=== PATIENT | male | born 1955 | race Asian ===

== ENCOUNTER 2017-11-09 12:14 | Day surgery (SDC) | END 2017-11-09 18:34 | disposition home or self-care (01) ==

== ENCOUNTER 2019-04-12 10:38 | Inpatient (IN) | payer MEDICARE, OTHER, MEDICAID ==
[~2019-04-12] VITALS: Ht 167.6 cm; Wt 90.1 kg
[2019-04-12] VITALS (18 sets, daily range): BP systolic 103–163; BP diastolic 74–141; PULSE 59–140; RESP 15–33; Ht 167.6 cm; Wt 90.1 kg
[~2019-04-12 10:38] MED LIST: AMIO200T4 PO; AMLO-147 PO; APIX5TAB PO; ASA400 PO; ASPI-817 PO; ATOR20TA38 PO; BUME1TAB PO; DIGO125T PO; HYDR12.58 PO; LOSA100T15 PO; LOSA25TA2 PO; METO-336 PO; PANT40TA4 PO; UDKCL40 PO
[2019-04-12] MEDS ORDERED: IPRATROPIUM (NEB) 0.5 MG/2.5 ML AMP INH STA (10:50)
[2019-04-12] MEDS ORDERED: ALBUTEROL 0.5% (NEB) 2.5 MG/0.5 ML AMP INH STA (10:50)
[2019-04-12] MEDS ORDERED: DILTIAZEM-D5W 125MG/125ML DRIP 125 ML IV STA (10:52)
[2019-04-12] MEDS ORDERED: DILTIAZEM 25 MG INJ IV STA (10:52)
[2019-04-12] MEDS ORDERED: CEFEPIME 2GM/50 ML (PMX) 50 ML IVPB STA (11:02)
--- NOTE | 2019-04-12 11:20 | ERD ---
ER Documentation Chief Complaint Chief Complaint SOB X 1 WEEKS, LEG SWELLING HPI This is a 63-year-old male with a past medical history of an inguinal hernia repair, hypertension, sleep apnea and high cholesterol who presents to the emergency department complaining of progressive shortness of breath for the past 12 days. He states this is progressively worsened. The shortness of breath is worse when he ambulates or stands up. He has been experiencing paroxysmal nocturnal dyspnea. He complains of bilateral swelling swelling of his lower extremities but denies any calf tenderness. No recent hospitalizations no recent travel or prolonged immobilization. He is also expressing palpitations but denies any chest pressure that radiates to the neck back or jaw. He said no fevers or shaking no chills. He denies any hemoptysis hematemesis or melanotic stools. He has no abdominal pain. ROS All systems reviewed and are negative except as per history of present illness. Medications Home Meds Reported Medications Aspirin* (Aspirin* EC) 81 Mg Tablet.dr, 81 MG PO DAILY, TAB 04/12/19 Atorvastatin Calcium* (Atorvastatin Calcium*) 20 Mg Tablet, 20 MG PO QHS, #30 TAB 04/12/19 Losartan Potassium* (Losartan Potassium*) 100 Mg Tablet, 100 MG PO DAILY, TAB 04/12/19 Amlodipine Besylate* (Amlodipine Besylate*) 10 Mg Tablet, 10 MG PO DAILY, #30 TAB 04/12/19 Discontinued Reported Medications Losartan Potassium* (Losartan Potassium*) 100 Mg Tablet, 100 MG PO DAILY, TAB 11/09/17 Amlodipine Besylate* (Amlodipine Besylate*) 10 Mg Tablet, 10 MG PO DAILY, #30 TAB 11/09/17 Hydrochlorothiazide* (Hydrochlorothiazide*) 12.5 Mg Tablet, 12.5 MG PO DAILY, # 30 TAB 11/09/17 Atorvastatin Calcium* (Atorvastatin Calcium*) 20 Mg Tablet, 20 MG PO QHS, #30 TAB 11/09/17 Allergies Allergies: Coded Allergies: No Known Allergy (Unverified , 04/12/19) PMhx/Soc History of Surgery: Yes (appendectomy,prostate, turp x2) Anesthesia Reaction: No Hx Neurological Disorder: No Hx Respiratory Disorders: No Hx Cardiac Disorders: No Hx Psychiatric Problems: No Hx Miscellaneous Medical Probl: Yes (high cholesterol) Hx Alcohol Use: No Hx Substance Use: No Hx Tobacco Use: No Physical Exam Vitals Vital Signs Date Temp Pulse Resp B/P (MAP) Pulse Ox O2 O2 Flow FiO2 Time Delivery Rate 04/12/19 107 23 105/87 100 BIPAP 12:35 (93) 04/12/19 118 98 50 12:27 04/12/19 98 28 130/84 97 Nasal 11:30 (99) Cannula 04/12/19 130 30 129/106 97 Nasal 11:20 (114) Cannula 04/12/19 118 24 96 Nasal 3.0 11:15 Cannula 04/12/19 Nasal 2 11:07 Cannula 04/12/19 Nasal 2.0 11:05 Cannula 04/12/19 98.0 82 24 121/87 92 10:41 (98) Physical Exam Constitutional:Well-developed. Well-nourished. Patient in severe respiratory distress HEENT:Normocephalic. Atraumatic.Pupils were equal round reactive to light. Moist mucous membranes.No tonsillar exudates. Neck: No nuchal rigidity. No lymphadenopathy. No posterior cervical spine tenderness or step-offs. Respiratory: Patient unable to speak more than 2 words at a time before becoming short of breath. Using accessory muscles of respiration. Rhonchi heard bilaterally. Cardiovascular: Tachycardic with irregular regular rhythm.No murmurs. No rubs were appreciated.S1, S2 normal. Distal pulses are palpable 2+ bilaterally. GI: Abdomen was soft. Nontender. Non Distended. No pulsatile abdominal masses or bruits. No rebound. No guarding. Bowel sounds were present and normal. Muscle skeletal: Full range of motion of both the upper and lower extremities bilaterally.Normal muscle tone.No assymetrical calf tenderness or swelling. 1+ pitting edema the bilateral lower extremities Skin: No petechia, no purpura. No lesions on the palms or the soles of the feet. No maculopapular rash. NEURO: Patient was alert, awake, orientated x3.No facial droop. Gait not observed as patient was in respiratory distress and therefore unable to ambulate. Speech had regular rate and rhythm. No focal neurological deficits. Result Diagram: 04/12/19 1055 04/12/19 1055 Results 24 hrs Laboratory Tests Test 04/12/19 10:47 04/12/19 10:55 04/12/19 11:01 Blood Gas Specimen Source Blood arterial Arterial Blood Date Drawn 04/12/2019 11:06:02 AM Arterial Blood pH 7.356 (Temp corrected) Arterial Blood pCO2 27.2 mmhg (Temp correct) Arterial Blood pO2 88.5 mmHG (Temp corrected) Arterial Blood HCO3 14.9 mmol/L Arterial Blood Base Excess -8.9 mmol/L Arterial Blood 95.6 mmHG Oxygen Saturation Can Test N/A Arterial Blood Gas Right Brachial Puncture Site Arterial 1.0 % Blood Carboxyhemoglobin Arterial Blood 0.3 % Methemoglobin Blood Gas A-a O2 316.6 mmHg Differential Oxyhemoglobin Percent 94.4 % Blood Gas Temperature 37.0 C Blood Gas Modality MASK - SIMPLE FiO2 61.0 % Blood Gas Notified Whom TM Blood Gas Notified Time 04/12/2019 11:14:45 AM White Blood Count 6.5 10^3/ul Red Blood Count 4.87 10^6/ul Hemoglobin 13.5 g/dl Hematocrit 43.8 % Mean Corpuscular Volume 89.9 fl Mean Corpuscular 27.7 pg Hemoglobin Mean Corpuscular 30.8 g/dl Hemoglobin Concent Red Cell Distribution 15.6 % Width Platelet Count 278 10^3/UL Mean Platelet Volume 9.0 fl Immature Granulocytes % 0.300 % Neutrophils % 80.2 % Lymphocytes % 10.6 % Monocytes % 8.6 % Eosinophils % 0.0 % Basophils % 0.3 % Nucleated Red Blood Cells 0.0 /100WBC % Immature Granulocytes # 0.020 10^3/ul Neutrophils # 5.2 10^3/ul Lymphocytes # 0.7 10^3/ul Monocytes # 0.6 10^3/ul Eosinophils # 0.0 10^3/ul Basophils # 0.0 10^3/ul Nucleated Red Blood Cells 0.0 10^3/ul # Prothrombin Time 16.5 Sec Prothrombin Time Ratio 1.3 INR International 1.32 Normalized Ratio Activated 36.5 Sec Partial Thromboplast Time D-Dimer 1554.61 ng/ml D-Dimer Comment Sodium Level 146 mmol/L Potassium Level 3.9 mmol/L Chloride Level 114 mmol/L Carbon Dioxide Level 17 mmol/L Anion Gap 15 Blood Urea Nitrogen 30 mg/dl Creatinine 1.87 mg/dl Est Glomerular Filtrat 37 mL/min Rate mL/min Glucose Level 204 mg/dl Calcium Level 8.6 mg/dl Total Bilirubin 1.7 mg/dl Direct Bilirubin 0.00 mg/dl Indirect Bilirubin 1.7 mg/dl Aspartate Amino 52 IU/L Transf (AST/SGOT) Alanine 59 IU/L Aminotransferase (ALT/SGPT ) Alkaline Phosphatase 67 IU/L Creatine Kinase 208 IU/L Creatine Kinase Index 1.7 Creatinine Kinase MB 3.54 ng/ml (Mass) Troponin I 0.144 ng/ml B-Type Natriuretic Peptide 8220 PG/ML Total Protein 7.4 g/dl Albumin 4.0 g/dl Globulin 3.40 g/dl Albumin/Globulin Ratio 1.17 POC Venous Lactate 3.8 mmol/L Current Medications Medications Dose Sig/Vance Start Time Status Last (Trade) Ordered Route PRN Stop Time Admin Dose Reason Admin Albuterol 10 mg ONCE STAT 04/12/19 DC 04/12/19 (Proventil INH 10:50 11:15 0.5% (Neb)) 04/12/19 10:51 Ipratropium 1 mg ONCE STAT 04/12/19 DC 04/12/19 [place] [facility] 10:50 11:15 (Atrovent 04/12/19 10:51 0.02% (Neb)) Diltiazem 10 mg ONCE STAT 04/12/19 DC 04/12/19 HCl IV 10:52 11:19 (Cardizem Iv) 04/12/19 10:53 Diltiazem 125 ml @ 5 ONCE STAT 04/12/19 HCl mls/hr IV 10:52 04/13/19 11:51 Cefepime HCl 50 ml @ ONCE STAT 04/12/19 DC 04/12/19 100 mls/hr IVPB 11:02 11:24 04/12/19 11:31 Vancomycin 250 ml @ ONCE ONCE 04/12/19 04/12/19 HCl 125 mls/hr IVPB 11:30 12:07 04/12/19 13:29 Lorazepam 0.5 mg ONCE ONCE 04/12/19 DC 04/12/19 (Ativan) IV 12:00 11:40 04/12/19 12:01 Aspirin 325 mg ONCE ONCE 04/12/19 DC 04/12/19 (Aspirin) PO 12:00 12:31 04/12/19 12:01 Procedures/MDM The patient presented to the emergency department with shortness of breath. My differential diagnosis included but was not limited to upper airway obstruction, CHF, pulmonary embolism, cardiac ischemia, pneumonia, pneumothorax, anemia, drug overdose, pulmonary edema, COPD or asthma. The patient was admitted placed on a alarm security or surveillance monitor continuous pulse oximetry and IV access was established by nursing staff. The patient started on continuous nebulizer treatments of albuterol and Atrovent and supplemental oxygen. 12 Lead EKG tracing ordered and reviewed by myself showed: Tachycardic with irregular regular rhythm and heart rate 116 bpm and no arrhythmia. WA interval not appreciated as P waves were not present and patient was in atrial fibrillation with RVR QRS duration normal. No ST segment elevation No ST segment depression. No changes consistent with acute ischemia. The patient has no underlying history of atrial fibrillation and had new onset A. fib with RVR. The patient was given 20 mg of Cardizem with improvement of his heart rate. The patient did meet Sirs criteria. Blood cultures and lactic acid was obtained. The patient's lactic acid was elevated. Therefore the patient was treated for sepsis. He was given antibiotics for sepsis of unclear etiology. However the patient did not receive a 30 cc/kg bolus of normal saline as the patient was in severe respiratory distress with new onset congestive heart failure and high risk for fluid overload. A chest radiograph ordered and reviewed by myself and the radiologist indicate the following: Cardiomegaly with calcified atherosclerosis in the aorta. Central pulmonary vascular congestion and interstitial prominence in both lungs. Retrocardiac opacity that may reflect left lower lobe atelectasis or infiltrate combined with small pleural effusion. Patchy right lower lung infiltrates and small right pleural effusion. Hyperexpanded lung The patient's respiratory distress did not improve with the nebulizer treatment and therefore was placed on noninvasive mechanical ventilation. The patient was very agitated did receive 0.5 mg of Ativan. This improved his agitation and the BiPAP significantly improve his respiratory distress. The patient's troponin wa s elevated however my clinical suspicion was low for myocardial ischemia at this time as the patient presented with new onset atrial fibrillation and congestive heart failure. He did receive aspirin. He will undergo serial twelve-lead EKG tracings and cardiac set of enzymes. Patient's infectious symptoms have not stabilized and the patient is at risk of rapid decompensation. The patient will be admitted for careful hydration, antibiotic therapy, and infectious source control. Severe Sepsis Assessment: Infectious Source: Pneumonia End organ damage indicated by: Lactate > 2.0 mmol/L Acute Resp Failure (sat < 92% w/o oxygen) Severe Sepsis Managment: Blood Cultures X 2 before broad spectrum antibiotics initiated within 3 hours of recognition. 30 ml/kg NS bolus Completed Initial Lactate: 3.8 Repeat Lactate pending Septic Shock Assessment (1 hour post 30 ml/kg fluid bolus): Hypotension (SBP < 90 or 40 mmHg drop, MAP < 65): No Lactic acid > 4.0 No I considered further perfusion assessment with CVP measurement, SCVO2, bedside ultrasound volume assessment, passive leg raise, trial of further fluid bolus. And preceded with gentle IV fluid resuscitation The patient initially arrived I also obtained a d-dimer in order to rule out for pulmonary embolism. The patient was a low pretest probability according to the Wells criteria for pulmonary embolism. D-dimer was elevated however my clinical suspicion at this time was low for pulmonary embolism given that he his clinical presentation and diagnostic imaging was able to confirm new onset congestive heart failure in addition to pneumonia. The patient's creatinine is elevated therefore is not a candidate to undergo a CT angiogram. A VQ scan will be ordered by myself. Critical Care: Time: 90 minutes Treatments/Evaluations: Close monitoring and treatment of unstable vital signs, cardiorespiratory, and neurologic status, while maintaining tight balance of fluid, respiratory, and cardiac interventions. Time does not include performing any of the above billable procedures. The patient will be admitted to the hospitalist Dr. Loyd will be going to the intensive care unit. Departure Diagnosis: Primary Impression: Atrial fibrillation with rapid ventricular response Additional Impressions: Pneumonia Pneumonia type: due to unspecified organism Laterality: bilateral Lung location: lower lobe of lung Qualified Codes: J18.1 - Lobar pneumonia, unspecified organism Sepsis Sepsis type: sepsis due to unspecified organism Qualified Codes: A41.9 - Sepsis, unspecified organism CHF (congestive heart failure) Heart failure type: unspecified Heart failure chronicity: acute Qualified Codes: I50.9 - Heart failure, unspecified Condition: Serious SHAKIRA CHANG MD Apr 12, 2019 11:20
[2019-04-12] MEDS ORDERED: VANCOMYCIN 1 GM (PMX) 250 ML IVPB ONE (11:30)
[2019-04-12] MEDS ORDERED: LORAZEPAM 2 MG INJ IV ONE (12:00)
[2019-04-12] MEDS ORDERED: ASPIRIN 325 MG TAB PO ONE (12:00)
[2019-04-12] MEDS ORDERED: MAGNESIUM HYDROXIDE 30ML CUP PO PRN (13:00)
[2019-04-12] MEDS ORDERED: ONDANSETRON 4 MG INJ IV PRN (13:00)
[2019-04-12] MEDS ORDERED: ENOXAPARIN 30 MG/0.3 ML SYG SC SCH (13:00)
[2019-04-12] MEDS ORDERED: ALBUTEROL 0.083% (NEB) 2.5 MG/3 ML AMP NEB PRN (13:00)
[2019-04-12] MEDS ORDERED: DOCUSATE SODIUM 100 MG CAP PO PRN (13:00)
--- NOTE | 2019-04-12 14:04 | CONS ---
DATE OF ADMISSION: 04/12/2019 DATE OF CONSULTATION: 04/12/2019 TYPE OF CONSULTATION: Infectious disease. REASON FOR CONSULTATION: Antibiotic management. HISTORY OF PRESENT ILLNESS: Kwasi Pollard is a 63-year-old male who comes in with shortness o f breath of 1 week duration and swollen legs. His past problems include: 1. Hypertension. 2. Sleep apnea. 3. Hypercholesterolemia. 4. Status post inguinal hernia repair. The patient presents to the Emergency Room with progressive shortness of breath for the last 12 days. Shortness of breath is worse when he ambulates or stands u p. He has been having paroxysmal nocturnal dyspnea. He complains of bilateral swelling of his lower extremities, but denies any calf tenderness. There are no recent hospitalizations or prolonged immo bilizations. He also expresses the fact that he has palpitations, but denies chest pressure. He has no fever or chills. He denies hemoptysis. He has no abdominal pain. PAST MEDICAL HISTORY: As outlined. PAST SURGICAL HISTORY: Status post appendectomy, status post prostatectomy. He actually has had 2 T URPS. FAMILY HISTORY: Noncontributory. SOCIAL HISTORY: He does not smoke, drink or abuse drugs. ALLERGIES: NONE TO PENICILLIN, SULFA OR FOODS. MEDICATIONS: Per chart. REVIEW OF SYSTEMS: Noncontributory. PHYSICAL EXAMINATION: GENERAL: The patient is well-developed, well-nourished male who is in severe distress. VITAL SIGNS: Stable. He is afebrile. SKIN: Without generalized rash. HEENT: Within normal limits. NECK: Supple. LYMPH NODES: None palpable. CHEST: Decreased breath sounds at the bases, using accessory muscles of respirations, rhonchi heard bilaterally. HEART: Tachycardic with irregularly irregular rhythm. No murmurs or gallops. ABDOMEN: Soft, nontender, without organosplenomegaly or masses. EXTREMITIES: He has 1+ pitting edema bilaterally in lower extremities. No calf tenderness. RECTAL AND GENITAL: Deferred. NEUROLOGIC: No focal neurological abnormalities. ANCILLARY LABORATORY DATA: White count of 6.5, H and H of 13.5 and 42.8, platelet count 278,000. BU N and creatinine 30/1.87, glucose random of 204. An arterial blood gas was done which showed a pH of 7.356, pO2 88.5 and pCO2 of 27.2. Patient was placed on 61% FIO2. As noted, his white count was 6. 5, but he had 80% neutrophils. IMAGING STUDIES: Chest x-ray shows cardiomegaly with calcified atherosclerosis in the aorta, central pulmonary congestion with interstitial prominence in both lungs, retrocardiac opacity that may refle ct left lower lobe atelectasis or infiltrate combined with small pleural effusion, patchy right lower lobe infiltrate and small right pleural effusion, hyperexpanded lungs. DVT study was negative. The patient was begun on vancomycin and cefepime for probable pulmonary infiltrates and pneumonia. T he patient also has congestive heart failure, probable cardiac ischemia. He was placed on nebulizer treatments of albuterol and Atrovent and supplemental oxygen. Blood cultures and lactic acid were ob tained. Lactic acid was elevated. Patient will be transferred to the intensive care unit. I will d ictate my findings to the hospitalists. Dictated By: LOREE MERRITT MD, JD/CANDY Conf#: [id number] DID#: [id number]
[2019-04-12] MEDS ORDERED: DILTIAZEM-D5W 125MG/125ML DRIP 125 ML IV SCH (16:00)
--- NOTE | 2019-04-12 16:45 | HP ---
Date/Time of Note Date/Time of Note DATE: 04/12/19 TIME: 16:24 Assessment/Plan VTE Prophylaxis SCD applied (from Nsg): Yes Pharmacological prophylaxis: LMWH Lines/Catheters IV Catheter Type (from Nrsg): Saline Lock Assessment/Plan Assessment/Plan 1. Acute hypoxic respiratory failure - currently on bipap - CXR noted with bilateral infiltrates which most likely is contributing to respiratory distress - continue broad spectrum antibiotics - Nebs PRN - Will consult Pulm for further recommendations 2. Acute congestive heart failure - most likely new onset - BNP noted - Cardiology consulted for further recommendations - started on diuretics BID - CXR noted with small bilateral pleural effusions - monitor I/O and daily weights - ECHO ordered to assess EF 3. New onset afib with RVR - started on Cardizem drip. Initially rate controlled after Cardizem 10mg given in ED - Cardiology consulted - will start full dose Lovenox and transition to eliquis prior to d/c if recommended by Cardiology 4. DANYA - most likely secondary to ATN in setting of afib with RVR and possible cardiorenal - US results noted - will renally dose medications - if worsens, will consult nephrology for assistance with diuretic management 5. Bilateral pneumonia - seen on CXR - ID consulted for antibiotic recommendations - continue Neb tx PRN 6. Elevated trop - most likely type 2 demand - no chest pain noted - will continue trending trops 7. Elevated LFT - possible due to congestion - no abdominal pain noted - will trend and if no improvement US RUQ 8. Sleep apnea - will continue CPAP qhs when respiratory status stabilizes 9. HTN - continue home medications and adjust as needed 10. Sepsis secondary to PNA - lactic acid elevated and will trend - will avoid fluids in setting of CHF exacerbation - IV antibiotics on board 11. Diet - cardiac 12. DVT ppx - LMWH 13. Disposition - Admit to ICU for close monitoring given acute respiratory failure and afib with RVR Result Diagram: 04/12/19 1055 04/12/19 1055 Results 24hrs Laboratory Tests Test 04/12/19 10:47 04/12/19 10:55 04/12/19 11:01 04/12/19 13:15 Blood Gas Blood arterial Specimen Source Arterial Blood 04/12/2019 11:06: Date Drawn 02 AM Arterial Blood pH 7.356 (Temp corrected) Arterial Blood 27.2 L pCO2 (Temp correct) Arterial Blood 88.5 pO2 (Temp corrected) Arterial Blood 14.9 L HCO3 Arterial Blood -8.9 L Base Excess Arterial Blood 95.6 Oxygen Saturation Can Test N/A Arterial Blood Right Brachial Gas Puncture Site Arterial 1.0 Blood Carboxyhemo globin Arterial Blood 0.3 Methemoglobin Blood Gas A-a O2 316.6 H Differential Oxyhemoglobin 94.4 Percent Blood Gas 37.0 Temperature Blood Gas MASK - SIMPLE Modality FiO2 61.0 Blood Gas TM Notified Whom Blood Gas 04/12/2019 11:14: Notified Time 45 AM White Blood Count 6.5 Red Blood Count 4.87 Hemoglobin 13.5 L Hematocrit 43.8 Mean Corpuscular 89.9 Volume Mean Corpuscular 27.7 L Hemoglobin Mean Corpuscular 30.8 L Hemoglobin Concen t Red Cell 15.6 H Distribution Width Platelet Count 278 Mean Platelet 9.0 Volume Immature 0.300 Granulocytes % Neutrophils % 80.2 H Lymphocytes % 10.6 L Monocytes % 8.6 Eosinophils % 0.0 Basophils % 0.3 Nucleated Red 0.0 Blood Cells % Immature 0.020 Granulocytes # Neutrophils # 5.2 Lymphocytes # 0.7 L Monocytes # 0.6 Eosinophils # 0.0 Basophils # 0.0 Nucleated Red 0.0 Blood Cells # Prothrombin Time 16.5 H Prothrombin Time 1.3 Ratio INR International 1.32 Normalized Ratio Activated 36.5 H Partial Thrombopl ast Time D-Dimer 1554.61 H D-Dimer Comment Sodium Level 146 H Potassium Level 3.9 Chloride Level 114 H Carbon Dioxide 17 L Level Anion Gap 15 H Blood Urea 30 H Nitrogen Creatinine 1.87 H Est Glomerular 37 L Filtrat Rate mL/min Glucose Level 204 Calcium Level 8.6 Total Bilirubin 1.7 H Direct Bilirubin 0.00 Indirect 1.7 H Bilirubin Aspartate Amino 52 H Transf (AST/SGOT) Alanine 59 Aminotransferase (ALT/SGPT) Alkaline 67 Phosphatase Creatine Kinase 208 H Creatine Kinase 1.7 Index Creatinine Kinase 3.54 H MB (Mass) Troponin I 0.144 *H B-Type 8220 H Natriuretic Peptide Total Protein 7.4 Albumin 4.0 Globulin 3.40 H Albumin/Globulin 1.17 Ratio POC Venous 3.8 *H Lactate Lactic Acid Level 2.7 *H Test 04/12/19 13:16 04/12/19 15:23 04/12/19 15:27 Hemoglobin A1c 6.0 H Thyroid 2.290 Stimulating Hormone (TSH) Creatine Kinase 218 H Creatine Kinase 2.2 Index Creatinine Kinase 4.79 H MB (Mass) Troponin I 0.158 *H Lactic Acid Level 2.3 *H HPI/ROS Admit Date/Time Admit Date/Time Apr 12, 2019 at 12:21 Hx of Present Illness 63 yo M with PMH HTN, sleep apnea, and hyperlipidemia presented to ED with worsening shortness of breath. Patient was on BIPAP and only answering simple questions. History obtained from patient as well and ED physician. Patient states he has not been feeling well for the past week and has been experiencing worsening shortness of breath while ambulating. He also complains of paroxysmal nocturnal dyspnea. He has associated bilateral lower extremity swelling. Admits to palpitations but denies any chest pain, dizziness, nausea, vomiting, coughing, sputum production, abdominal pain or urinary issues. Patient denies any recent sick contact or recent travel. Denies any cardiac issues besides elevated blood pressure. ROS All 12 systems reviewed and pertinent positives as per HPI. All others negative. Constitutional: fatigue; No nausea Eyes: No discharge ENT: No congestion Respiratory: shortness of breath; No cough, No sputum, No wheezing Cardiovascular: edema, palpitations; No chest pain, No lightheadedness Gastrointestinal: No pain, No constipation, No diarrhea, No nausea, No vomiting Genitourinary: no complaints Musculoskeletal: no complaints Skin: No laceration, No rash Neurologic: no complaints; No focal-weakness, No syncope Endocrine: no complaints Lymphatic: no complaints Psychological: nl mood/affect Immunologic: no complaints PMH/Family/Social Past Medical History Medical History: high cholesterol, hypertension Medications Current Medications Amlodipine Besylate (Norvasc) 10 mg DAILY PO ; Start 04/13/19 at 09:00 Aspirin (Halfprin) 81 mg DAILY PO ; Start 04/13/19 at 09:00 Atorvastatin Calcium (Lipitor) 20 mg QHS PO ; Start 04/12/19 at 21:00 Ondansetron HCl (Zofran Inj) 4 mg Q6H PRN IV NAUSEA AND/OR VOMITING; Start 04/12/19 at 13:00 Albuterol (Proventil 0.083% (Neb)) 2.5 mg Q2H RESP THERAPY PRN NEB SHORTNESS OF BREATH; Start 04/12/19 at 13:00 Acetaminophen (Tylenol Tab) 650 mg Q6H PRN PO PAIN LEVEL 1-3 OR FEVER; Start 04/12/19 at 13:00 Docusate Sodium (Colace) 100 mg Q12H PRN PO CONSTIPATION; Start 04/12/19 at 13:00 Magnesium Hydroxide (Milk Of Mag) 30 ml DAILY PRN PO CONSTIPATION; Start 04/12/19 at 13:00 Pantoprazole (Protonix Tab) 40 mg DAILY@06 PO ; Start 04/13/19 at 06:00 Enoxaparin Sodium (Lovenox) 30 mg DAILY SC Last administered on 04/12/19at 14:34; Admin Dose 30 MG; Start 04/12/19 at 13:00 Cefepime HCl 50 ml @ 100 mls/hr Q12 IVPB ; Start 04/12/19 at 21:00 Diltiazem HCl 125 ml @ 5 mls/hr TITRATE IV ; Start 04/12/19 at 16:00 Coded Allergies: No Known Allergy (Unverified , 04/12/19) Past Surgical History Past Surgical Hx: other (inguinal hernia repair) Family History Significant Family History: other (noncontributory) Social History Alcohol Use: none Smoking Status: Never smoker Drug Use: none Exam/Review of Systems Vital Signs Vitals Vital Signs Date Temp Pulse Resp B/P (MAP) Pulse Ox O2 O2 Flow FiO2 Time Delivery Rate 04/12/19 107 24 120/99 100 BIPAP 14:10 (106) 04/12/19 50 12:27 04/12/19 3.0 11:15 04/12/19 98.0 10:41 Exam Exam General: Patient is a pleasant male, mild respiratory distress. answering questions appropriately HEENT: Atraumatic, normocephalic. The pupils are equal, round and reactive. Extraocular motor are intact Neck: Supple with full range of motion. No rigidity or meningismus Chest: Nontender Lungs: Diminished diffusely with coarse breath sounds Heart: Normal S1-S2, irregular rhythm, tachycardia Abdomen: Soft , nontender, nondistended , bowel sounds are present. No guarding no rebound tenderness , No masses or organomegaly. No costovertebral temporal angle mass Extremities: swelling of lower extremities bilaterally Skin: No rashes or lesions appreciated. venous stasis changes. Neurologic: Normal mental status, speech normal, cranial nerves II through XII are intact, motor and sensory are intact, Additional Comments Home medications reviewed PROCEDURE: US Lower extremity Venous. CLINICAL INDICATION: Bilateral lower extremity edema TECHNIQUE: Multiple sonographic images of the bilateral lower extremity deep venous system was obtained utilizing grayscale, color-flow, compressive sonography and doppler imaging with augmentation. The images were reviewed on a PACS workstation. COMPARISON: None. FINDINGS: There is normal compressibility and flow within the right common femoral, femoral , posterior tibial and popliteal veins. There is normal compressibility and flow within the left common femoral, femoral , posterior tibial and popliteal veins. RPTAT: AA IMPRESSION: No sonographic evidence for deep venous thrombosis. .Bridger Bolton MD, MD Date Time Electronically viewed and signed by .Bridger Bolton MD, on 04/12/2019 12:10 PROCEDURE: XR Chest 1 view. CLINICAL INDICATION: Shortness of breath. TECHNIQUE: Single view of the chest was obtained. COMPARISON: None. FINDINGS: Support lines and tubes: None. Mediastinum: Enlarged heart. Calcified atherosclerosis in the aorta. Lungs: Central pulmonary vascular congestion and interstitial prominence in both lungs. Retrocardiac opacity. Patchy right lower lung infiltrates and small right pleural effusion. Hyperexpanded lungs. No pneumothorax. Osseous structures: Old, healed left-sided rib fractures. Osteopenia. Degenerative changes in the shoulders. Other: None. IMPRESSION: Cardiomegaly with calcified atherosclerosis in the aorta. Central pulmonary vascular congestion and interstitial prominence in both lungs. Retrocardiac opacity that may reflect left lower lobe atelectasis or infiltrate combined with small pleural effusion. Patchy right lower lung infiltrates and small right pleural effusion. Hyperexpanded lungs. RPTAT: AA .Ian Rocha MD, Date Time Electronically viewed and signed by .Ian Rocha MD, on 04/12/2019 11:31 PROCEDURE: Retroperitoneal US. CLINICAL INDICATION: Renal insufficiency TECHNIQUE: Multiple sonographic images of the kidneys and retroperitoneum were obtained. The images were reviewed on a PACS workstation. COMPARISON: No prior studies are available for comparison. FINDINGS: The kidneys are normal in size, contour, cortical thickness and cortical echogenicity. The right kidney measures 9.5 cm. The left kidney measures 9.2 cm. No kidney stones are visualized. There is no evidence for hydronephrosis. The urinary bladder is normal. RPTAT: AA IMPRESSION: Unremarkable retroperitoneal ultrasound. .Bridger Bolton MD, MD Date Time Electronically viewed and signed by .Bridger Bolton MD, MD on 04/12/2019 15:49 MARVIN FOX MD Apr 12, 2019 16:45
--- NOTE | 2019-04-12 17:14 | RADRPT ---
Echocardiogram Report Patient Name: Minnie ALEJANDREnt ID: [id number] : 1955 (63y 8m)Study Date: 04/12/2019 2:14:37 PM Gender: MAccession #: [id number] Tech: Alexis Pimentel [facility] Location: [address] Ref.Physician: MARVIN FOX Height(Cm): BSA: Weight(Kg): Quality: AdequateOrder Physician: MARVIN FOX Account #: Procedures: Echocardiographic Report: Transthoracic echocardiogram with complete 2D, M-Mode, and doppler examination. Indications: New Congestive Heart Failure. Measurements: 2D/M Mode Doppler Measurement Value Normal Range Measurement Value Normal Range LVIDd 2D 5.6 [ 4.2 - 5.8 ] cm AV Peak Wolfgang 1.0 [ 100.0 - 170.0 ] cm/sec LVIDs 2D 4.9 [ 2.5 - 4.0 ] cm AV Peak PG 4.0 [ 2.0 - 9.0 ] mmHg LVPWd 2D 0.9 [ 0.6 - 1.0 ] cm LVOT Peak Wolfgang 0.4 [ 70.0 - 110.0 ] cm/sec IVSd 2D 1.0 [ 0.6 - 1.0 ] cm LVOT Peak PG 1.0 [ 2.0 - 6.0 ] mmHg AoR Diam 2D 2.4 [ 2.6 - 3.4 ] cm MV E Peak Wolfgang 0.9 [ 60.0 - 130.0 ] cm/sec EDV 2D 154.0 [ 62.0 - 150.0 ] ml MV Decel Time 155 [ 104 - 258 ] msec ESV 2D 112.0 [ 21.0 - 61.0 ] ml TR Peak Wolfgang 3.3 [ 100.0 - 280.0 ] cm/sec EF 2D 27.3 [ 52.0 - 72.0 ] percent TR Peak PG 44.0 mmHg LA Dimen 2D 3.9 [ 3.0 - 4.0 ] cm RVSP 52.0 [ 10.0 - 36.0 ] mmHg Findings: Left Ventricle: Normal left ventricular cavity size. Normal left ventricular wall thickness. Severe global left ventricular systolic dysfunction. Ejection fraction is visually estimated at 20 %. No left ventricular thrombus visualized. Tissue Doppler/Mitral Doppler indices are indeterminate in this study due to the presence of atrial fibrillation. Resting Segmental Wall Motion Analysis: There is global severe hypokinesis, and the best motion of the heart comes from the inferior and posterior bases. Right Ventricle: Moderate right ventricular systolic dysfunction. Moderate enlargement of right ventricle. Left Atrium: There is mild enlargement of left atrium. Right Atrium: There is moderate enlargement of right atrium. Mitral Valve: Mild mitral leaflet calcification. Mild mitral annular calcification. Moderate mitral valve regurgitation. The regurgitation jet is eccentrically directed which may underestimate the severity of mitral regurgitation. Aortic Valve: No hemodynamically significant aortic stenosis by doppler. Aortic cusps appear mildly calcified. Trace aortic valve regurgitation. Tricuspid Valve: Normal appearance of the tricuspid valve. The estimated Peak RVSP is 52 mmHg. There is moderate to severe tricuspid regurgitation. Pulmonic Valve: Pulmonic valve not well visualized. Pericardium: Normal pericardium with no significant pericardial effusion. Left pleural effusion seen. Aorta: Normal aortic root. IVC: Dilated IVC with respiratory collapse, however, patient on ventilator. Conclusions: Severely reduced left ventricular systolic function. Wall motion abnormalities as described. Dilated hypokinetic right ventricle. Biatrial enlargement. Moderate to severe tricuspid regurgitation with at least moderate pulmonary hypertension. Trace aortic regurgitation. Moderate eccentric mitral regurgitation. Left pleural effusion. Electronically Signed By: Chel Costello 2019-04-12 17:13:07 PDT
--- NOTE | 2019-04-12 17:37 | CONS ---
Assessment/Plan Cardiology NYHA: IV Heart Failure Type: Acute Heart Failure Type: Both Assessment/Plan Hospital Course (Demo Recall) 63 yo with acute congestive heart failure, pneumonia, and rapid atrial fibrillation. Impression: Atrial fib, rapid, unclear duration Acute systolic and diastolic heart failure, unclear duration of cardiomyopathy, decompensated Pneumonia H/o hypertension Renal insufficiency, unclear if acute or chronic Recommendations: Given his severely reduced LVEF, diltiazem is not a good choice for rate control because it depresses myocardial contractility Will initiate IV beta blockade for now q2 hours to improve heart rate control Prefer not to use digoxin given renal insufficiency, but if needed for rate control, can carefully add this Ultimately need to get him on a regimen of an munir/arb and oral beta elsa for heart failure Will initiate anticoagulation with Eliquis, CHADS-VASC is at least one due to h/o hypertension, but suspect he also has arterial disease given wall motion abnormalities on echo Management of underlying pneumonia by Dr. Loyd and ID Consultation Date/Type/Reason Admit Date/Time Apr 12, 2019 at 12:21 Date of Consultation: Apr 12, 2019 Type of Consult Cardiology Reason for Consultation heart failure and atrial fibrillation Requesting Provider: MARVIN LOYD MD Date/Time of Note DATE: 04/12/19 TIME: 17:27 Hx of Present Illness 63 yo with history of hypertension and sleep apnea who presents to the ED with two weeks of dyspnea and cough. History difficult to obtain from patient as he is on bipap and is somewhat somnolent from receiving ativan in the ED, so his cousin Luis Miguel was also able to provide some information. Patient has not been hospitalized in over a year. He does not regularly go to doctors. He has also had leg swelling. Subjective hx not possible: pt critical status Past Medical History Medical History: high cholesterol, hypertension, other (prostate) Home Meds Reported Medications Aspirin* (Aspirin* EC) 81 Mg Tablet., 81 MG PO DAILY, TAB 04/12/19 Atorvastatin Calcium* (Atorvastatin Calcium*) 20 Mg Tablet, 20 MG PO QHS, #30 TAB 04/12/19 Losartan Potassium* (Losartan Potassium*) 100 Mg Tablet, 100 MG PO DAILY, TAB 04/12/19 Amlodipine Besylate* (Amlodipine Besylate*) 10 Mg Tablet, 10 MG PO DAILY, #30 TAB 04/12/19 Discontinued Reported Medications Losartan Potassium* (Losartan Potassium*) 100 Mg Tablet, 100 MG PO DAILY, TAB 11/09/17 Amlodipine Besylate* (Amlodipine Besylate*) 10 Mg Tablet, 10 MG PO DAILY, #30 TAB 11/09/17 Hydrochlorothiazide* (Hydrochlorothiazide*) 12.5 Mg Tablet, 12.5 MG PO DAILY, #30 TAB 11/09/17 Atorvastatin Calcium* (Atorvastatin Calcium*) 20 Mg Tablet, 20 MG PO QHS, #30 TAB 11/09/17 Medications Current Medications Amlodipine Besylate (Norvasc) 10 mg DAILY PO ; Start 04/13/19 at 09:00 Aspirin (Halfprin) 81 mg DAILY PO ; Start 04/13/19 at 09:00 Atorvastatin Calcium (Lipitor) 20 mg QHS PO ; Start 04/12/19 at 21:00 Ondansetron HCl (Zofran Inj) 4 mg Q6H PRN IV NAUSEA AND/OR VOMITING; Start 04/12/19 at 13:00 Albuterol (Proventil 0.083% (Neb)) 2.5 mg Q2H RESP THERAPY PRN NEB SHORTNESS OF BREATH; Start 04/12/19 at 13:00 Acetaminophen (Tylenol Tab) 650 mg Q6H PRN PO PAIN LEVEL 1-3 OR FEVER; Start 04/12/19 at 13:00 Docusate Sodium (Colace) 100 mg Q12H PRN PO CONSTIPATION; Start 04/12/19 at 13:00 Magnesium Hydroxide (Milk Of Mag) 30 ml DAILY PRN PO CONSTIPATION; Start 04/12/19 at 13:00 Pantoprazole (Protonix Tab) 40 mg DAILY@06 PO ; Start 04/13/19 at 06:00 Cefepime HCl 50 ml @ 100 mls/hr Q12 IVPB ; Start 04/12/19 at 21:00 Diltiazem HCl 125 ml @ 5 mls/hr TITRATE IV ; Start 04/12/19 at 16:00 Furosemide (Lasix) 20 mg BID DIURETICS IV ; Start 04/12/19 at 18:00 Enoxaparin Sodium (Lovenox) 90 mg Q12 SC ; Start 04/12/19 at 21:00; Status UNV Allergies: Coded Allergies: No Known Allergy (Unverified , 04/12/19) Past Surgical History Past Surgical Hx: other (inguinal hernia repair) Family History Significant Family History: other (unable) Social History Alcohol Use: none Smoking Status: Never smoker Drug Use: none Exam/Review of Systems Vital Signs Vitals Vital Signs Date Temp Pulse Resp B/P (MAP) Pulse Ox O2 O2 Flow FiO2 Time Delivery Rate 04/12/19 131 24 98 16:30 04/12/19 142/84 16:00 (103) 04/12/19 96.5 BIPAP 16:00 04/12/19 50 15:50 04/12/19 3.0 11:15 Exam Constitutional: alert, other (somewhat somnolent) Psych: nl mood/affect Head: normocephalic, atraumatic Eyes: EOMI, nl lids ENMT: nl external ears & nose, other (bipap mask in place) Neck: supple, other (cannot see jugular venous pressure); No bruits Respiratory: other (diminished breath sounds) Cardiovascular: other (difficult due to moaning/talking. irregular, systolic murmur heard) Gastrointestinal: soft, nl liver, spleen, non-tender, distended (mildly) Extremities: normal pulses (normal DP pulses bilaterally), edema (in both legs) Neurological: nl speech Skin: nl turgor Labs Result Diagram: 04/12/19 1055 04/12/19 1055 Results 24hrs Laboratory Tests Test 04/12/19 10:47 04/12/19 10:55 04/12/19 11:01 04/12/19 13:15 Blood Gas Blood arterial Specimen Source Arterial Blood 04/12/2019 11:06: Date Drawn 02 AM Arterial Blood pH 7.356 (Temp corrected) Arterial Blood 27.2 L pCO2 (Temp correct) Arterial Blood 88.5 pO2 (Temp corrected) Arterial Blood 14.9 L HCO3 Arterial Blood -8.9 L Base Excess Arterial Blood 95.6 Oxygen Saturation Can Test N/A Arterial Blood Right Brachial Gas Puncture Site Arterial 1.0 Blood Carboxyhemo globin Arterial Blood 0.3 Methemoglobin Blood Gas A-a O2 316.6 H Differential Oxyhemoglobin 94.4 Percent Blood Gas 37.0 Temperature Blood Gas MASK - SIMPLE Modality FiO2 61.0 Blood Gas TM Notified Whom Blood Gas 04/12/2019 11:14: Notified Time 45 AM White Blood Count 6.5 Red Blood Count 4.87 Hemoglobin 13.5 L Hematocrit 43.8 Mean Corpuscular 89.9 Volume Mean Corpuscular 27.7 L Hemoglobin Mean Corpuscular 30.8 L Hemoglobin Concen t Red Cell 15.6 H Distribution Width Platelet Count 278 Mean Platelet 9.0 Volume Immature 0.300 Granulocytes % Neutrophils % 80.2 H Lymphocytes % 10.6 L Monocytes % 8.6 Eosinophils % 0.0 Basophils % 0.3 Nucleated Red 0.0 Blood Cells % Immature 0.020 Granulocytes # Neutrophils # 5.2 Lymphocytes # 0.7 L Monocytes # 0.6 Eosinophils # 0.0 Basophils # 0.0 Nucleated Red 0.0 Blood Cells # Prothrombin Time 16.5 H Prothrombin Time 1.3 Ratio INR International 1.32 Normalized Ratio Activated 36.5 H Partial Thrombopl ast Time D-Dimer 1554.61 H D-Dimer Comment Sodium Level 146 H Potassium Level 3.9 Chloride Level 114 H Carbon Dioxide 17 L Level Anion Gap 15 H Blood Urea 30 H Nitrogen Creatinine 1.87 H Est Glomerular 37 L Filtrat Rate mL/min Glucose Level 204 Calcium Level 8.6 Total Bilirubin 1.7 H Direct Bilirubin 0.00 Indirect 1.7 H Bilirubin Aspartate Amino 52 H Transf (AST/SGOT) Alanine 59 Aminotransferase (ALT/SGPT) Alkaline 67 Phosphatase Creatine Kinase 208 H Creatine Kinase 1.7 Index Creatinine Kinase 3.54 H MB (Mass) Troponin I 0.144 *H B-Type 8220 H Natriuretic Peptide Total Protein 7.4 Albumin 4.0 Globulin 3.40 H Albumin/Globulin 1.17 Ratio POC Venous 3.8 *H Lactate Lactic Acid Level 2.7 *H Test 04/12/19 13:16 04/12/19 15:23 04/12/19 15:27 Hemoglobin A1c 6.0 H Thyroid 2.290 Stimulating Hormone (TSH) Creatine Kinase 218 H Creatine Kinase 2.2 Index Creatinine Kinase 4.79 H MB (Mass) Troponin I 0.158 *H Lactic Acid Level 2.3 *H Imaging Imaging EKG shows atrial fibrillation at 116 bpm, with nonspecific T wave changes Medications Medications Current Medications Amlodipine Besylate (Norvasc) 10 mg DAILY PO ; Start 04/13/19 at 09:00 Aspirin (Halfprin) 81 mg DAILY PO ; Start 04/13/19 at 09:00 Atorvastatin Calcium (Lipitor) 20 mg QHS PO ; Start 04/12/19 at 21:00 Ondansetron HCl (Zofran Inj) 4 mg Q6H PRN IV NAUSEA AND/OR VOMITING; Start 04/12/19 at 13:00 Albuterol (Proventil 0.083% (Neb)) 2.5 mg Q2H RESP THERAPY PRN NEB SHORTNESS OF BREATH; Start 04/12/19 at 13:00 Acetaminophen (Tylenol Tab) 650 mg Q6H PRN PO PAIN LEVEL 1-3 OR FEVER; Start 04/12/19 at 13:00 Docusate Sodium (Colace) 100 mg Q12H PRN PO CONSTIPATION; Start 04/12/19 at 13:00 Magnesium Hydroxide (Milk Of Mag) 30 ml DAILY PRN PO CONSTIPATION; Start 04/12/19 at 13:00 Pantoprazole (Protonix Tab) 40 mg DAILY@06 PO ; Start 04/13/19 at 06:00 Cefepime HCl 50 ml @ 100 mls/hr Q12 IVPB ; Start 04/12/19 at 21:00 Diltiazem HCl 125 ml @ 5 mls/hr TITRATE IV ; Start 04/12/19 at 16:00 Furosemide (Lasix) 20 mg BID DIURETICS IV ; Start 04/12/19 at 18:00 Enoxaparin Sodium (Lovenox) 90 mg Q12 SC ; Start 04/12/19 at 21:00; Status CATHERINE CHANDRA Apr 12, 2019 17:37
[2019-04-12] MEDS: METOPROLOL 5 MG INJ IV SCH ×3 (18:10→23:01)
[2019-04-12] MEDS: FUROSEMIDE 20 MG INJ IV SCH (18:10)
[2019-04-12] MEDS: CEFEPIME 1GM/50 ML (PMX) 50 ML IVPB SCH (20:15)
[2019-04-12] MEDS: APIXABAN 5 MG TABLET PO SCH (20:15)
[2019-04-12] MEDS: ATORVASTATIN 20 MG TAB PO SCH (20:15)
[2019-04-12] MEDS ORDERED: ENOXAPARIN 100 MG/ML SYG SC SCH (21:00)
[2019-04-13] VITALS (29 sets, daily range): BP systolic 86–131; BP diastolic 60–112; PULSE 83–119; RESP 14–31
[2019-04-13] MEDS: METOPROLOL 5 MG INJ IV SCH ×4 (01:08→07:03)
[2019-04-13] MEDS: FUROSEMIDE 20 MG INJ IV SCH (05:43)
[2019-04-13] MEDS: PANTOPRAZOLE (EC) 40 MG TAB PO SCH (05:43)
[2019-04-13] MEDS ORDERED: SOD CHLORIDE 0.9% 500 ML IV ONE (06:30)
[2019-04-13] MEDS ORDERED: INSULIN REGULAR, HUMAN 100 UNIT/1 ML 3ML VIAL IVP STA (06:34)
[2019-04-13] MEDS ORDERED: DEXTROSE 50% 50 ML SYRINGE IV ONE (07:00)
[2019-04-13] MEDS ORDERED: DEXTROSE 50% 50 ML SYRINGE IV PRN (07:00)
[2019-04-13] MEDS ORDERED: NA POLYST SULFON 15 GM/60 ML BTL PO ONE (07:00)
--- NOTE | 2019-04-13 08:53 | CONS ---
Assessment/Plan Assessment/Plan Assessment/Plan (Daily) Chest x-ray was reviewed from yesterday which is showing cardiomegaly with pulmonary vascular congestion. Assessment and recommendations; 1. Patient admitted with shortness of breath due to underlying cardiomyopathy with CHF exacerbation from A. fib with RVR. Apparently atrial fibrillation is new in onset. Patient maintained on appropriate treatment regimen including anticoagulation. Heart rate is well controlled now. 2. Chronic renal insufficiency. 3. History of hypertension. 4. Elevated transaminases likely from passive congestion of liver. 5. Difficult to rule out superimposed pneumonia. Patient however currently on appropriate empiric antimicrobial regimen. Continue current supportive care. Obtain follow-up chest x-ray. If the x-ray shows significant improvement in bilateral infiltrates that would corroborate pulmonary edema as the main pulmonary pathology and likely exclude pneumonia. 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 Consultation Date/Type/Reason Admit Date/Time Apr 12, 2019 at 12:21 Date of Consultation: Apr 13, 2019 Type of Consult Pulmonary/critical care Patient is a 63-year-old [place] gentleman who came into the hospital with history of shortness of breath for the last 1 day. Patient denied having any chest pain, any fever, wheezing or any sputum production. Upon evaluation patient was found to be in A. fib with RVR. Patient has been rate controlled. By the time I saw the patient in ICU, patient is sitting comfortably in bed and denied having any shortness of breath, rest pain, or any other symptoms. Past medical history; 1. History of apparent chronic renal insufficiency. 2. History of hypertension. Medications; reviewed. Allergies; none. Social history; patient never smoked. Occupational history; patient is retired. Family history; noncontributory. Review of systems; denies any headache, chest pain, shortness of breath has improved. Denies any coughing, wheezing, sputum production or fever. Denies any abdominal pain, nausea vomiting. Any orthopnea. General exam; elderly male, laying comfortably in bed. Currently in no di stress. Date/Time of Note DATE: 04/13/19 TIME: 08:49 Past Medical History Medical History: high cholesterol, hypertension Home Meds Reported Medications Aspirin* (Aspirin* EC) 81 Mg Tablet., 81 MG PO DAILY, TAB 04/12/19 Atorvastatin Calcium* (Atorvastatin Calcium*) 20 Mg Tablet, 20 MG PO QHS, #30 T AB 04/12/19 Losartan Potassium* (Losartan Potassium*) 100 Mg Tablet, 100 MG PO DAILY, TAB 04/12/19 Amlodipine Besylate* (Amlodipine Besylate*) 10 Mg Tablet, 10 MG PO DAILY, #30 TAB 04/12/19 Discontinued Reported Medications Losartan Potassium* (Losartan Potassium*) 100 Mg Tablet, 100 MG PO DAILY, TAB 11/09/17 Amlodipine Besylate* (Amlodipine Besylate*) 10 Mg Tablet, 10 MG PO DAILY, #30 TAB 11/09/17 Hydrochlorothiazide* (Hydrochlorothiazide*) 12.5 Mg Tablet, 12.5 MG PO DAILY, #30 TAB 11/09/17 Atorvastatin Calcium* (Atorvastatin Calcium*) 20 Mg Tablet, 20 MG PO QHS, #30 TAB 11/09/17 Medications Current Medications Aspirin (Halfprin) 81 mg DAILY PO ; Start 04/13/19 at 09:00 Atorvastatin Calcium (Lipitor) 20 mg QHS PO Last administered on 04/12/19at 20:15; Admin Dose 20 MG; Start 04/12/19 at 21:00 Ondansetron HCl (Zofran Inj) 4 mg Q6H PRN IV NAUSEA AND/OR VOMITING; Start 04/12/19 at 13:00 Albuterol (Proventil 0.083% (Neb)) 2.5 mg Q2H RESP THERAPY PRN NEB SHORTNESS OF BREATH; Start 04/12/19 at 13:00 Acetaminophen (Tylenol Tab) 650 mg Q6H PRN PO PAIN LEVEL 1-3 OR FEVER; Start 04/12/19 at 13:00 Docusate Sodium (Colace) 100 mg Q12H PRN PO CONSTIPATION; Start 04/12/19 at 13:00 Magnesium Hydroxide (Milk Of Mag) 30 ml DAILY PRN PO CONSTIPATION; Start 04/12/19 at 13:00 Pantoprazole (Protonix Tab) 40 mg DAILY@06 PO Last administered on 04/13/19at 05:43; Admin Dose 40 MG; Start 04/13/19 at 06:00 Cefepime HCl 50 ml @ 100 mls/hr Q12 IVPB Last administered on 04/12/19at 20:15; Admin Dose 100 MLS/HR; Start 04/12/19 at 21:00 Furosemide (Lasix) 20 mg BID DIURETICS IV Last administered on 04/13/19at 05:43; Admin Dose 20 MG; Start 04/12/19 at 18:00 Metoprolol Tartrate (Lopressor) 5 mg Q2 IV Last administered on 04/13/19at 07:03; Admin Dose 5 MG; Start 04/12/19 at 19:00 Apixaban (Eliquis) 5 mg BID PO Last administered on 04/12/19at 20:15; Admin Dose 5 MG; Start 04/12/19 at 21:00 Allergies: Coded Allergies: No Known Allergy (Unverified , 04/12/19) Past Surgical History Past Surgical Hx: other (inguinal hernia repair) Social History Alcohol Use: none Smoking Status: Never smoker Drug Use: none Exam/Review of Systems Exam Vitals Vital Signs Date Temp Pulse Resp B/P (MAP) Pulse Ox O2 O2 Flow FiO2 Time Delivery Rate 04/13/19 93 08:00 04/13/19 93 Nasal 6.0 05:40 Cannula 04/13/19 98.0 18 128/112 04:00 (117) 04/13/19 50 03:05 Intake and Output 04/12/19 04/12/19 04/13/19 1515:00 23:00 07:00 IntakeIntake Total 410 ml 180 ml OutputOutput Total 35 ml BalanceBalance 410 ml 145 ml Exam H ENT exam; supple neck, positive JVD. No lymphadenopathy. Midline trachea. No thyromegaly. Patient has fair dentition. No neck masses. Chest exam; clear to auscultation. S1-S2 audible, no murmurs. Irregular rhythm. Abdomen exam; soft, nontender. No organomegaly. Bowel sounds audible. Extremity exam; no peripheral edema clubbing. Pulses 1+. [employer] exam; no focal motor deficit. Results Result Diagram: 04/13/19 0456 04/13/19 0456 Results 24hrs Laboratory Tests Test 04/12/19 10:47 04/12/19 10:55 04/12/19 11:01 04/12/19 13:15 Blood Gas Blood arterial Specimen Source Arterial Blood 04/12/2019 11:06: Date Drawn 02 AM Arterial Blood pH 7.356 (Temp corrected) Arterial Blood 27.2 L pCO2 (Temp correct) Arterial Blood 88.5 pO2 (Temp corrected) Arterial Blood 14.9 L HCO3 Arterial Blood -8.9 L Base Excess Arterial Blood 95.6 Oxygen Saturation Can Test N/A Arterial Blood Right Brachial Gas Puncture Site Arterial 1.0 Blood Carboxyhemo globin Arterial Blood 0.3 Methemoglobin Blood Gas A-a O2 316.6 H Differential Oxyhemoglobin 94.4 Percent Blood Gas 37.0 Temperature Blood Gas MASK - SIMPLE Modality FiO2 61.0 Blood Gas TM Notified Whom Blood Gas 04/12/2019 11:14: Notified Time 45 AM White Blood Count 6.5 Red Blood Count 4.87 Hemoglobin 13.5 L Hematocrit 43.8 Mean Corpuscular 89.9 Volume Mean Corpuscular 27.7 L Hemoglobin Mean Corpuscular 30.8 L Hemoglobin Concen t Red Cell 15.6 H Distribution Width Platelet Count 278 Mean Platelet 9.0 Volume Immature 0.300 Granulocytes % Neutrophils % 80.2 H Lymphocytes % 10.6 L Monocytes % 8.6 Eosinophils % 0.0 Basophils % 0.3 Nucleated Red 0.0 Blood Cells % Immature 0.020 Granulocytes # Neutrophils # 5.2 Lymphocytes # 0.7 L Monocytes # 0.6 Eosinophils # 0.0 Basophils # 0.0 Nucleated Red 0.0 Blood Cells # Prothrombin Time 16.5 H Prothrombin Time 1.3 Ratio INR International 1.32 Normalized Ratio Activated 36.5 H Partial Thrombopl ast Time D-Dimer 1554.61 H D-Dimer Comment Sodium Level 146 H Potassium Level 3.9 Chloride Level 114 H Carbon Dioxide 17 L Level Anion Gap 15 H Blood Urea 30 H Nitrogen Creatinine 1.87 H Est Glomerular 37 L Filtrat Rate mL/min Glucose Level 204 Calcium Level 8.6 Total Bilirubin 1.7 H Direct Bilirubin 0.00 Indirect 1.7 H Bilirubin Aspartate Amino 52 H Transf (AST/SGOT) Alanine 59 Aminotransferase (ALT/SGPT) Alkaline 67 Phosphatase Creatine Kinase 208 H Creatine Kinase 1.7 Index Creatinine Kinase 3.54 H MB (Mass) Troponin I 0.144 *H B-Type 8220 H Natriuretic Peptide Total Protein 7.4 Albumin 4.0 Globulin 3.40 H Albumin/Globulin 1.17 Ratio POC Venous 3.8 *H Lactate Lactic Acid Level 2.7 *H Test 04/12/19 13:16 04/12/19 15:23 04/12/19 15:27 04/13/19 00:32 Hemoglobin A1c 6.0 H Thyroid 2.290 Stimulating Hormone (TSH) Creatine Kinase 218 H 228 H Creatine Kinase 2.2 2.6 Index Creatinine Kinase 4.79 H 5.86 H MB (Mass) Troponin I 0.158 *H 0.220 *H Lactic Acid Level 2.3 *H Test 04/13/19 04:55 04/13/19 04:56 04/13/19 06:47 04/13/19 07:30 Lactic Acid Level 4.4 *H White Blood Count 10.1 # Red Blood Count 5.30 Hemoglobin 14.9 Hematocrit 49.5 Mean Corpuscular 93.4 Volume Mean Corpuscular 28.1 L Hemoglobin Mean Corpuscular 30.1 L Hemoglobin Concen t Red Cell 16.2 H Distribution Width Platelet Count 203 # Mean Platelet 9.9 Volume Immature 0.600 H Granulocytes % Neutrophils % 83.9 H Lymphocytes % 6.6 L Monocytes % 8.8 Eosinophils % 0.0 Basophils % 0.1 Nucleated Red 0.0 Blood Cells % Immature 0.060 H Granulocytes # Neutrophils # 8.5 H Lymphocytes # 0.7 L Monocytes # 0.9 Eosinophils # 0.0 Basophils # 0.0 Nucleated Red 0.0 Blood Cells # Sodium Level 146 H Potassium Level 5.5 H Chloride Level 115 H Carbon Dioxide 14 L Level Anion Gap 17 H Blood Urea 42 #H Nitrogen Creatinine 2.45 H Est Glomerular 27 L Filtrat Rate mL/min Glucose Level 97 # Calcium Level 8.9 Magnesium Level 2.3 Total Bilirubin 2.8 H Direct Bilirubin 0.10 Indirect 2.7 H Bilirubin Aspartate Amino Transf (AST/SGOT) Alanine 2231 H Aminotransferase (ALT/SGPT) Alkaline 73 Phosphatase Creatine Kinase 246 H Creatine Kinase 2.8 Index Creatinine Kinase 6.90 H MB (Mass) Troponin I 0.210 *H Total Protein 7.2 Albumin 3.9 Globulin 3.30 H Albumin/Globulin 1.18 Ratio Triglycerides 46 Level Cholesterol Level 101 LDL Cholesterol, 48 Calculated HDL Cholesterol 44 Cholesterol/HDL 2.2 Ratio Bedside Glucose 77 113 Medications Medication Current Medications Aspirin (Halfprin) 81 mg DAILY PO ; Start 04/13/19 at 09:00 Atorvastatin Calcium (Lipitor) 20 mg QHS PO Last administered on 04/12/19at 20:15; Admin Dose 20 MG; Start 04/12/19 at 21:00 Ondansetron HCl (Zofran Inj) 4 mg Q6H PRN IV NAUSEA AND/OR VOMITING; Start 04/12/19 at 13:00 Albuterol (Proventil 0.083% (Neb)) 2.5 mg Q2H RESP THERAPY PRN NEB SHORTNESS OF BREATH; Start 04/12/19 at 13:00 Acetaminophen (Tylenol Tab) 650 mg Q6H PRN PO PAIN LEVEL 1-3 OR FEVER; Start 04/12/19 at 13:00 Docusate Sodium (Colace) 100 mg Q12H PRN PO CONSTIPATION; Start 04/12/19 at 13:00 Magnesium Hydroxide (Milk Of Mag) 30 ml DAILY PRN PO CONSTIPATION; Start 04/12/19 at 13:00 Pantoprazole (Protonix Tab) 40 mg DAILY@06 PO Last administered on 04/13/19 05:43; Admin Dose 40 MG; Start 04/13/19 at 06:00 Cefepime HCl 50 ml @ 100 mls/hr Q12 IVPB Last administered on 04/12/19 20:15; Admin Dose 100 MLS/HR; Start 04/12/19 at 21:00 Furosemide (Lasix) 20 mg BID DIURETICS IV Last administered on 04/13/19 05:43; Admin Dose 20 MG; Start 04/12/19 at 18:00 Metoprolol Tartrate (Lopressor) 5 mg Q2 IV Last administered on 04/13/19 07:03; Admin Dose 5 MG; Start 04/12/19 at 19:00 Apixaban (Eliquis) 5 mg BID PO Last administered on 04/12/19at 20:15; Admin Dose 5 MG; Start 04/12/19 at 21:00 BONI BAER Apr 13, 2019 08:53
[2019-04-13] MEDS ORDERED: AMLODIPINE 10 MG TAB PO SCH (09:00)
[2019-04-13] MEDS: APIXABAN 5 MG TABLET PO SCH ×2 (10:23→21:05)
[2019-04-13] MEDS: CEFEPIME 1GM/50 ML (PMX) 50 ML IVPB SCH ×2 (10:23→21:05)
[2019-04-13] MEDS: ASPIRIN (EC) 81 MG TAB PO SCH (11:59)
[2019-04-13] MEDS: METOPROLOL (XL) 50 MG TAB PO SCH (12:00)
--- NOTE | 2019-04-13 12:09 | CONS ---
Assessment/Plan Cardiology NYHA: IV Heart Failure Type: Acute Heart Failure Type: Both Assessment/Plan Hospital Course (Demo Recall) 63 yo with acute congestive heart failure, pneumonia, and rapid atrial fibrillation. Impression: Atrial fib, rapid, unclear duration Acute systolic and diastolic heart failure, unclear duration of cardiomyopathy, decompensated Possible pneumonia H/o hypertension Renal insufficiency, unclear if acute or chronic, with worsening since yesterday Recommendations: Change metoprolol to po succinate preparation, with iv metoprolol tartrate for breakthrough elevated heart rate Given his severely reduced LVEF, diltiazem is not a good choice for rate control because it depresses myocardial contractility Prefer not to use digoxin given renal insufficiency, but if needed for rate control, can carefully add this No munir/arb due to acute renal failure and hyperkalemia Eliquis, CHADS-VASC is at least one due to h/o hypertension, but suspect he also has arterial disease given wall motion abnormalities on echo When clinically improved, consider nuclear stress vs cath to evaluate for CAD Consultation Date/Type/Reason Admit Date/Time Apr 12, 2019 at 12:21 Initial Consult Date 04/13/19 Type of Consult Cardiology Requesting Provider: MARVIN FOX MD Date/Time of Note DATE: 04/13/19 TIME: 12:00 24 HR Interval Summary Free Text/Dictation No longer on bipap, but is dyspneic on nasal cannula. Was able to eat breakfast, is tolerating po meds. Exam/Review of Systems Vital Signs Vitals Vital Signs Date Temp Pulse Resp B/P (MAP) Pulse Ox O2 O2 Flow FiO2 Time Delivery Rate 04/13/19 93 08:00 04/13/19 93 Nasal 6.0 05:40 Cannula 04/13/19 98.0 18 128/112 04:00 (117) 04/13/19 50 03:05 Intake and Output 04/12/19 04/12/19 04/13/19 1515:00 23:00 07:00 IntakeIntake Total 410 ml 180 ml OutputOutput Total 35 ml BalanceBalance 410 ml 145 ml Exam Constitutional: alert, oriented, other (obese) Psych: nl mood/affect Head: normocephalic, atraumatic Eyes: EOMI, nl lids, nl sclera ENMT: nl external ears & nose, nl lips & teeth Neck: supple; No jvd, No bruits Respiratory: clear to auscultation, diminished breath sounds Cardiovascular: nl pulses, irregular rhythm; No murmurs/extra sounds Gastrointestinal: soft, non-tender Musculoskeletal: nl extremities to inspection Extremities: normal pulses Neurological: nl mental status, nl speech Skin: nl turgor; No rash or lesions Labs Result Diagram: 04/13/19 0456 04/13/19 0456 Results 24hrs Laboratory Tests Test 04/12/19 13:15 04/12/19 13:16 04/12/19 15:23 04/12/19 15:27 Lactic Acid Level 2.7 *H 2.3 *H Hemoglobin A1c 6.0 H Thyroid Stimulating 2.290 Hormone (TSH) Creatine Kinase 218 H Creatine Kinase 2.2 Index Creatinine Kinase MB 4.79 H (Mass) Troponin I 0.158 *H Test 04/13/19 00:32 04/13/19 04:55 04/13/19 04:56 04/13/19 06:47 Creatine Kinase 228 H 246 H Creatine Kinase 2.6 2.8 Index Creatinine Kinase MB 5.86 H 6.90 H (Mass) Troponin I 0.220 *H 0.210 *H Lactic Acid Level 4.4 *H White Blood Count 10.1 # Red Blood Count 5.30 Hemoglobin 14.9 Hematocrit 49.5 Mean Corpuscular 93.4 Volume Mean Corpuscular 28.1 L Hemoglobin Mean Corpuscular 30.1 L Hemoglobin Concent Red Cell 16.2 H Distribution Width Platelet Count 203 # Mean Platelet Volume 9.9 Immature 0.600 H Granulocytes % Neutrophils % 83.9 H Lymphocytes % 6.6 L Monocytes % 8.8 Eosinophils % 0.0 Basophils % 0.1 Nucleated Red Blood 0.0 Cells % Immature 0.060 H Granulocytes # Neutrophils # 8.5 H Lymphocytes # 0.7 L Monocytes # 0.9 Eosinophils # 0.0 Basophils # 0.0 Nucleated Red Blood 0.0 Cells # Sodium Level 146 H Potassium Level 5.5 H Chloride Level 115 H Carbon Dioxide Level 14 L Anion Gap 17 H Blood Urea Nitrogen 42 #H Creatinine 2.45 H Est Glomerular 27 L Filtrat Rate mL/min Glucose Level 97 # Calcium Level 8.9 Magnesium Level 2.3 Total Bilirubin 2.8 H Direct Bilirubin 0.10 Indirect Bilirubin 2.7 H Aspartate Amino Transf (AST/SGOT) Alanine 2231 H Aminotransferase (AL T/SGPT) Alkaline Phosphatase 73 Total Protein 7.2 Albumin 3.9 Globulin 3.30 H Albumin/Globulin 1.18 Ratio Triglycerides Level 46 Cholesterol Level 101 LDL Cholesterol, 48 Calculated HDL Cholesterol 44 Cholesterol/HDL 2.2 Ratio Bedside Glucose 77 Test 04/13/19 07:30 04/13/19 10:56 Bedside Glucose 113 Lactic Acid Level 5.4 *H Medications Medications Current Medications Aspirin (Halfprin) 81 mg DAILY PO ; Start 04/13/19 at 09:00 Atorvastatin Calcium (Lipitor) 20 mg QHS PO Last administered on 04/12/19at 20:15; Admin Dose 20 MG; Start 04/12/19 at 21:00 Ondansetron HCl (Zofran Inj) 4 mg Q6H PRN IV NAUSEA AND/OR VOMITING; Start 04/12/19 at 13:00 Albuterol (Proventil 0.083% (Neb)) 2.5 mg Q2H RESP THERAPY PRN NEB SHORTNESS OF BREATH; Start 04/12/19 at 13:00 Acetaminophen (Tylenol Tab) 650 mg Q6H PRN PO PAIN LEVEL 1-3 OR FEVER; Start 04/12/19 at 13:00 Docusate Sodium (Colace) 100 mg Q12H PRN PO CONSTIPATION; Start 04/12/19 at 13:00 Magnesium Hydroxide (Milk Of Mag) 30 ml DAILY PRN PO CONSTIPATION; Start at 13:00 Pantoprazole (Protonix Tab) 40 mg DAILY@06 PO Last administered on 04/13/19at 05:43; Admin Dose 40 MG; Start 04/13/19 at 06:00 Cefepime HCl 50 ml @ 100 mls/hr Q12 IVPB Last administered on 04/13/19at 10:23; Admin Dose 100 MLS/HR; Start 04/12/19 at 21:00 Apixaban (Eliquis) 5 mg BID PO Last administered on 04/13/19at 10:23; Admin Dose 5 MG; Start 04/12/19 at 21:00 Metoprolol Tartrate (Lopressor) 5 mg Q2H PRN IV heart rate over 110; Start 04/13/19 at 09:30 Metoprolol Succinate (Toprol Xl) 50 mg DAILY PO ; Start 04/13/19 at 09:30 Furosemide (Lasix) 20 mg DAILY IV ; Start 04/14/19 at 09:00 CATHERINE DEL ANGEL Apr 13, 2019 12:08
--- NOTE | 2019-04-13 12:27 | CONS ---
Assessment/Plan Assessment/Plan Assessment/Plan (Daily) 1. Oliguric acute kidney injury vs acute kidney injury on CKD 2/2 Hemodynamics from CHF and atrial fibrillation RVR , also contributing ATN from sepsis 2. acute hypoxic respiratory failure requiring BIPAP due to Bilateral PNA and CHF 3. sepsis due to Bilateral PNA 4. Acute CHF exacerbation with EF 20% on ECHO, most likely new onset since pt has been denying any H/o CHF 5. New onset afib with RVR- on cardizem gtt 6. H/o HTN 7. H/o Sleep apnea 8. H/o Possible CKD but pt has been denying it.. His Renal Us showed normal echogenicity of kidneys but kidneys are small in size, The right kidney measures 9.5 cm. The left kidney measures 9.2 cm. Plan: seen in ICU, I ordered ABG stat which showed PH 7.29 with HCO3 10- Pt has elevated lactic acid also pt has been no High flow oxygen today AM, Currenlty on Cardizem gtt still HR in 120s- HCo3 in labs showed 14 in am labs- we will start pt on HCo3 drip concentrated to run at 50 cc/hr to avoid fluid overload meanwhile we will start pt on Bumex gtt at 1mg/hr, Monitor electorlytes and replace as needed IV abx for sepsis and PNA, renally dose all abx , ID following Cardioloyg has been following, pt has EF 20% on ECHO wiht Moderate MR, moderate to severe TR, Enlarged RV and RVSP 52- we are worried about PE but pt has elevated Cr so he can not have CT angiogram to rule out PE, V/Q scan has been ordered but pt is very unstable to go to V/Q scan pt has been on Eliquis 5 mg PO BID URine studies has been ordered CK total, Uric acid if pt doesn't respond to Bumex gtt and rate control, he will need initiation of HD due to Oliguric to anuric DANYA and hyperkalemia, and acidosis Thanks for consultation , I will continue to follow up Consultation Date/Type/Reason Admit Date/Time Apr 12, 2019 at 12:21 Date of Consultation: Apr 13, 2019 Type of Consult NEPHROLOGY Reason for Consultation Oliguric Acute kidney injury Requesting Provider: MARVIN FOX MD Date/Time of Note DATE: 04/13/19 TIME: 12:26 Hx of Present Illness 63 yo M with PMH HTN, sleep apnea, and hyperlipidemia presented to ED with worsening shortness of breath. Patient required BIPAP on admission - he gets admitted for acute hypoxic respiratory failure and Acute CHF excaerbation , his labs on admission was BUN/Cr 30/1.87, Na 147, HCo3 17- which worsened today to BUN/Cr 42/2.25, Na 146, K 5.5, HCo3 10,ABG showed PH 7.29 with HCo3 10- His urine output dropped to less than 10ml/hr, he received couple of doses of IV lasix but did not respond well, he is currently on High flow oxygen. Renal has been consulted for acute vs acute on chronic renal failure, Hypernatremia and Hyperkalemia. Pt denies h/o CKD, no h/o NSAIID use ECHO 04/13/19 showed Normal left ventricular cavity size. Normal left ventricular wall thickness. Severe global left ventricular systolic dysfunction. Ejection fraction is visually estimated at 20 %. No left ventricular thrombus visualized. There is global severe hypokinesis Moderate right ventricular systolic dysfunction. Moderate enlargement of right ventricle.RVSP 52, Moderate MR , moderate to severe TR Constitutional: poor po Eyes: no complaints ENT: no complaints Respiratory: cough, pleuritic pain, shortness of breath Cardiovascular: chest pain Gastrointestinal: no complaints Genitourinary: no complaints Musculoskeletal: bone/joint pain, swelling (2-3+ LE edema ) Skin: no complaints Neurologic: no complaints Endocrine: no complaints Lymphatic: no complaints Psychological: no complaints Immunologic: no complaints Past Medical History Medical History: high cholesterol, hypertension, other (sleep apnea ) Home Meds Reported Medications Aspirin* (Aspirin* EC) 81 Mg Tablet.dr, 81 MG PO DAILY, TAB 04/12/19 Atorvastatin Calcium* (Atorvastatin Calcium*) 20 Mg Tablet, 20 MG PO QHS, #30 TAB 04/12/19 Losartan Potassium* (Losartan Potassium*) 100 Mg Tablet, 100 MG PO DAILY, TAB 04/12/19 Amlodipine Besylate* (Amlodipine Besylate*) 10 Mg Tablet, 10 MG PO DAILY, #30 TAB 04/12/19 Discontinued Reported Medications Losartan Potassium* (Losartan Potassium*) 100 Mg Tablet, 100 MG PO DAILY, TAB 11/09/17 Amlodipine Besylate* (Amlodipine Besylate*) 10 Mg Tablet, 10 MG PO DAILY, #30 TAB 11/09/17 Hydrochlorothiazide* (Hydrochlorothiazide*) 12.5 Mg Tablet, 12.5 MG PO DAILY, #30 TAB 11/09/17 Atorvastatin Calcium* (Atorvastatin Calcium*) 20 Mg Tablet, 20 MG PO QHS, #30 TAB 11/09/17 Medications Current Medications Aspirin (Halfprin) 81 mg DAILY PO Last administered on 04/13/19at 11:59; Admin Dose 81 MG; Start 04/13/19 at 09:00 Atorvastatin Calcium (Lipitor) 20 mg QHS PO Last administered on 04/12/19at 20:15; Admin Dose 20 MG; Start 04/12/19 at 21:00 Ondansetron HCl (Zofran Inj) 4 mg Q6H PRN IV NAUSEA AND/OR VOMITING; Start 04/12/19 at 13:00 Albuterol (Proventil 0.083% (Neb)) 2.5 mg Q2H RESP THERAPY PRN NEB SHORTNESS OF BREATH; Start 04/12/19 at 13:00 Acetaminophen (Tylenol Tab) 650 mg Q6H PRN PO PAIN LEVEL 1-3 OR FEVER; Start 04/12/19 at 13:00 Docusate Sodium (Colace) 100 mg Q12H PRN PO CONSTIPATION; Start 04/12/19 at 13:00 Magnesium Hydroxide (Milk Of Mag) 30 ml DAILY PRN PO CONSTIPATION; Start 04/12/19 at 13:00 Pantoprazole (Protonix Tab) 40 mg DAILY@06 PO Last administered on 04/13/19at 05:43; Admin Dose 40 MG; Start 04/13/19 at 06:00 Cefepime HCl 50 ml @ 100 mls/hr Q12 IVPB Last administered on 04/13/19at 10:23; Admin Dose 100 MLS/HR; Start 04/12/19 at 21:00 Apixaban (Eliquis) 5 mg BID PO Last administered on 04/13/19at 10:23; Admin Dose 5 MG; Start 04/12/19 at 21:00 Metoprolol Tartrate (Lopressor) 5 mg Q2H PRN IV heart rate over 110; Start 04/13/19 at 09:30 Metoprolol Succinate (Toprol Xl) 50 mg DAILY PO Last administered on 04/13/19at 12:00; Admin Dose 50 MG; Start 04/13/19 at 09:30 Furosemide (Lasix) 20 mg DAILY IV ; Start 04/14/19 at 09:00 Allergies: Coded Allergies: No Known Allergy (Unverified , 04/12/19) Past Surgical History Past Surgical Hx: other (inguinal hernia repair) Family History Significant Family History: no pertinent family hx Social History Alcohol Use: none Smoking Status: Never smoker Drug Use: none Exam/Review of Systems Exam Vitals Vital Signs Date Temp Pulse Resp B/P (MAP) Pulse Ox O2 O2 Flow FiO2 Time Delivery Rate 04/13/19 93 08:00 04/13/19 93 Nasal 6.0 05:40 Cannula 04/13/19 98.0 18 128/112 04:00 (117) 04/13/19 50 03:05 Intake and Output 04/12/19 04/12/19 04/13/19 1515:00 23:00 07:00 IntakeIntake Total 410 ml 180 ml OutputOutput Total 35 ml BalanceBalance 410 ml 145 ml Constitutional: distress (Moderate distressm pt is on High FLow oxygen ) Psych: no complaints Head: normocephalic Eyes: nl conjunctiva ENMT: nl external ears & nose Neck: supple, non-tender Respiratory: congested cough, crackles/rales, diminished breath sounds Cardiovascular: regular rate and rhythm, nl pulses Gastrointestinal: soft, non-tender Musculoskeletal: muscle weakness, swelling (2-3+ pitting edema ) Extremities: normal pulses Neurological: 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 II-XII intact, nl mental status, nl speech, nl strength Skin: nl turgor Results Result Diagram: 04/13/19 0456 04/13/19 0456 Results 24hrs Laboratory Tests Test 04/12/19 13:15 04/12/19 13:16 04/12/19 15:23 04/12/19 15:27 Lactic Acid Level 2.7 *H 2.3 *H Hemoglobin A1c 6.0 H Thyroid Stimulating 2.290 Hormone (TSH) Creatine Kinase 218 H Creatine Kinase 2.2 Index Creatinine Kinase MB 4.79 H (Mass) Troponin I 0.158 *H Test 04/13/19 00:32 04/13/19 04:55 04/13/19 04:56 04/13/19 06:47 Creatine Kinase 228 H 246 H Creatine Kinase 2.6 2.8 Index Creatinine Kinase MB 5.86 H 6.90 H (Mass) Troponin I 0.220 *H 0.210 *H Lactic Acid Level 4.4 *H White Blood Count 10.1 # Red Blood Count 5.30 Hemoglobin 14.9 Hematocrit 49.5 Mean Corpuscular 93.4 Volume Mean Corpuscular 28.1 L Hemoglobin Mean Corpuscular 30.1 L Hemoglobin Concent Red Cell 16.2 H Distribution Width Platelet Count 203 # Mean Platelet Volume 9.9 Immature 0.600 H Granulocytes % Neutrophils % 83.9 H Lymphocytes % 6.6 L Monocytes % 8.8 Eosinophils % 0.0 Basophils % 0.1 Nucleated Red Blood 0.0 Cells % Immature 0.060 H Granulocytes # Neutrophils # 8.5 H Lymphocytes # 0.7 L Monocytes # 0.9 Eosinophils # 0.0 Basophils # 0.0 Nucleated Red Blood 0.0 Cells # Sodium Level 146 H Potassium Level 5.5 H Chloride Level 115 H Carbon Dioxide Level 14 L Anion Gap 17 H Blood Urea Nitrogen 42 #H Creatinine 2.45 H Est Glomerular 27 L Filtrat Rate mL/min Glucose Level 97 # Calcium Level 8.9 Magnesium Level 2.3 Total Bilirubin 2.8 H Direct Bilirubin 0.10 Indirect Bilirubin 2.7 H Aspartate Amino Transf (AST/SGOT) Alanine 2231 H Aminotransferase (AL T/SGPT) Alkaline Phosphatase 73 Total Protein 7.2 Albumin 3.9 Globulin 3.30 H Albumin/Globulin 1.18 Ratio Triglycerides Level 46 Cholesterol Level 101 LDL Cholesterol, 48 Calculated HDL Cholesterol 44 Cholesterol/HDL 2.2 Ratio Bedside Glucose 77 Test 04/13/19 07:30 04/13/19 10:56 Bedside Glucose 113 Lactic Acid Level 5.4 *H Medications Medication Current Medications Aspirin (Halfprin) 81 mg DAILY PO Last administered on 04/13/19at 11:59; Admin Dose 81 MG; Start 04/13/19 at 09:00 Atorvastatin Calcium (Lipitor) 20 mg QHS PO Last administered on 04/12/19at 20:15; Admin Dose 20 MG; Start 04/12/19 at 21:00 Ondansetron HCl (Zofran Inj) 4 mg Q6H PRN IV NAUSEA AND/OR VOMITING; Start 04/12/19 at 13:00 Albuterol (Proventil 0.083% (Neb)) 2.5 mg Q2H RESP THERAPY PRN NEB SHORTNESS OF BREATH; Start 04/12/19 at 13:00 Acetaminophen (Tylenol Tab) 650 mg Q6H PRN PO PAIN LEVEL 1-3 OR FEVER; Start 04/12/19 at 13:00 Docusate Sodium (Colace) 100 mg Q12H PRN PO CONSTIPATION; Start 04/12/19 at 13:00 Magnesium Hydroxide (Milk Of Mag) 30 ml DAILY PRN PO CONSTIPATION; Start 04/12/19 at 13:00 Pantoprazole (Protonix Tab) 40 mg DAILY@06 PO Last administered on 04/13/19at 05:43; Admin Dose 40 MG; Start 04/13/19 at 06:00 Cefepime HCl 50 ml @ 100 mls/hr Q12 IVPB Last administered on 04/13/19at 10:23; Admin Dose 100 MLS/HR; Start 04/12/19 at 21:00 Apixaban (Eliquis) 5 mg BID PO Last administered on 04/13/19at 10:23; Admin Dose 5 MG; Start 04/12/19 at 21:00 Metoprolol Tartrate (Lopressor) 5 mg Q2H PRN IV heart rate over 110; Start 04/13/19 at 09:30 Metoprolol Succinate (Toprol Xl) 50 mg DAILY PO Last administered on 04/13/19at 12:00; Admin Dose 50 MG; Start 04/13/19 at 09:30 Furosemide (Lasix) 20 mg DAILY IV ; Start 04/14/19 at 09:00 RYAN VICENTE MD Apr 13, 2019 12:27
[2019-04-13] MEDS ORDERED: BUMETANIDE 12 MG in DEXTROSE 5% 72 ML IV ONE (13:30)
--- NOTE | 2019-04-13 15:32 | PN ---
Date/Time of Note Date/Time of Note DATE: 04/13/19 TIME: 15:18 Assessment/Plan VTE Prophylaxis Risk score (from Nsg)>0 risk: 4 SCD applied (from Nsg): No SCD contraindicated: other Pharmacological prophylaxis: apixaban Lines/Catheters IV Catheter Type (from Nrsg): Saline Lock Urinary Cath still in place: Yes Reason Cath still needed: terminal illness/intractable pain Assessment/Plan Assessment/Plan 1. Acute hypoxic respiratory failure - patient with hypoxia and will continue monitoring in ICU given high risk for intubation - ABG noted and continue on BIPAP - Pulm consultation appreciated. Still with congestion on CXR - continue broad spectrum antibiotics - Nebs PRN 2. Acute systolic congestive heart failure - Cardiology on board and appreciate recommendations - adjustments made to Lasix given worsening renal function. Nephrology consulted for assistance with diuretics management - Cardiology consultation appreciated - BNP - monitor I/O and daily weights - ECHO results noted with low EF 3. New onset afib with RVR - start on BB and will avoid cardizem given low EF and decreased myocardial contractility - Cardiology consultation appreciated - Started on Eliquis 4. DANYA - Nephrology consultation placed given worsening of renal function - most likely secondary to ATN in setting of afib with RVR, hypoxia, and cardiorenal - US results noted - will renally dose medications 5. Bilateral pneumonia - seen on CXR - ID consultation appreciated - continue Neb tx PRN 6. Elevated trop - most likely type 2 demand - no chest pain noted - will continue trending trops 7. Elevated LFT - Liver US noted - possible due to congestion - no abdominal pain noted 8. Sleep apnea - on BIPAP 9. HTN - continue home medications and adjust as needed 10. Sepsis secondary to PNA - lactic acid elevated and will trend - IV antibiotics on board 11. Disposition - continue monitoring in ICU given continued hypoxic respiratory failure >30 minutes of critical care time spent with patient Result Diagram: 04/13/19 0456 04/13/19 0456 Results 24hrs Laboratory Tests Test 04/12/19 15:23 04/12/19 15:27 04/13/19 00:32 04/13/19 04:55 Creatine Kinase 218 H 228 H Creatine Kinase 2.2 2.6 Index Creatinine Kinase 4.79 H 5.86 H MB (Mass) Troponin I 0.158 *H 0.220 *H Lactic Acid Level 2.3 *H 4.4 *H Test 04/13/19 04:56 04/13/19 06:47 04/13/19 07:30 04/13/19 10:56 White Blood Count 10.1 # Red Blood Count 5.30 Hemoglobin 14.9 Hematocrit 49.5 Mean Corpuscular 93.4 Volume Mean Corpuscular 28.1 L Hemoglobin Mean Corpuscular 30.1 L Hemoglobin Concen t Red Cell 16.2 H Distribution Width Platelet Count 203 # Mean Platelet 9.9 Volume Immature 0.600 H Granulocytes % Neutrophils % 83.9 H Lymphocytes % 6.6 L Monocytes % 8.8 Eosinophils % 0.0 Basophils % 0.1 Nucleated Red 0.0 Blood Cells % Immature 0.060 H Granulocytes # Neutrophils # 8.5 H Lymphocytes # 0.7 L Monocytes # 0.9 Eosinophils # 0.0 Basophils # 0.0 Nucleated Red 0.0 Blood Cells # Sodium Level 146 H Potassium Level 5.5 H Chloride Level 115 H Carbon Dioxide 14 L Level Anion Gap 17 H Blood Urea 42 #H Nitrogen Creatinine 2.45 H Est Glomerular 27 L Filtrat Rate mL/min Glucose Level 97 # Calcium Level 8.9 Magnesium Level 2.3 Total Bilirubin 2.8 H Direct Bilirubin 0.10 Indirect 2.7 H Bilirubin Aspartate Amino Transf (AST/SGOT) Alanine 2231 H Aminotransferase (ALT/SGPT) Alkaline 73 Phosphatase Creatine Kinase 246 H Creatine Kinase 2.8 Index Creatinine Kinase 6.90 H MB (Mass) Troponin I 0.210 *H Total Protein 7.2 Albumin 3.9 Globulin 3.30 H Albumin/Globulin 1.18 Ratio Triglycerides 46 Level Cholesterol Level 101 LDL Cholesterol, 48 Calculated HDL Cholesterol 44 Cholesterol/HDL 2.2 Ratio Bedside Glucose 77 113 Lactic Acid Level 5.4 *H Test 04/13/19 12:29 Blood Gas Blood arterial Specimen Source Arterial Blood 04/13/2019 1:06:3 Date Drawn 9 PM Arterial Blood pH 7.299 *L (Temp corrected) Arterial Blood 22.5 L pCO2 (Temp correct) Arterial Blood 71.7 L pO2 (Temp corrected) Arterial Blood 10.8 L HCO3 Arterial Blood -13.4 L Base Excess Arterial Blood 91.8 L Oxygen Saturation Can Test ACCEPTAB Arterial Blood Left Radial Gas Puncture Site Arterial 0.8 Blood Carboxyhemo globin Arterial Blood 0.3 Methemoglobin Blood Gas A-a O2 259.5 H Differential Oxyhemoglobin 90.8 L Percent Blood Gas 37.0 Temperature Blood Gas HFNC Modality FiO2 50.0 Blood Gas MNGO RN Critical Value Read Back Blood Gas TM Notified Whom Blood Gas 04/13/2019 1:16:1 Notified Time 1 PM Subjective 24 Hr Interval Summary Free Text/Dictation Patient states hes feeling better but still with shortness of breath. Denies any chest pain or palpitations. Exam/Review of Systems Exam Vitals Vital Signs Date Temp Pulse Resp B/P (MAP) Pulse Ox O2 O2 Flow FiO2 Time Delivery Rate 04/13/19 95 12:00 04/13/19 95 50 10:50 04/13/19 Nasal 6.0 05:40 Cannula 04/13/19 98.0 18 128/112 04:00 (117) Intake and Output 04/12/19 04/12/19 04/13/19 1515:00 23:00 07:00 IntakeIntake Total 410 ml 180 ml OutputOutput Total 35 ml BalanceBalance 410 ml 145 ml Exam General: mild respiratory distress. answering questions appropriately Neck: Supple Chest: Nontender Lungs: Diminished diffusely with coarse breath sounds Heart: Normal S1-S2, irregular rhythm, tachycardia Abdomen: Soft , nontender, nondistended , bowel sounds are present. No guarding no rebound tenderness Extremities: swelling of lower extremities bilaterally Results Results 24hrs Laboratory Tests Test 04/12/19 15:23 04/12/19 15:27 04/13/19 00:32 04/13/19 04:55 Creatine Kinase 218 H 228 H Creatine Kinase 2.2 2.6 Index Creatinine Kinase 4.79 H 5.86 H MB (Mass) Troponin I 0.158 *H 0.220 *H Lactic Acid Level 2.3 *H 4.4 *H Test 04/13/19 04:56 04/13/19 06:47 04/13/19 07:30 04/13/19 10:56 White Blood Count 10.1 # Red Blood Count 5.30 Hemoglobin 14.9 Hematocrit 49.5 Mean Corpuscular 93.4 Volume Mean Corpuscular 28.1 L Hemoglobin Mean Corpuscular 30.1 L Hemoglobin Concen t Red Cell 16.2 H Distribution Width Platelet Count 203 # Mean Platelet 9.9 Volume Immature 0.600 H Granulocytes % Neutrophils % 83.9 H Lymphocytes % 6.6 L Monocytes % 8.8 Eosinophils % 0.0 Basophils % 0.1 Nucleated Red 0.0 Blood Cells % Immature 0.060 H Granulocytes # Neutrophils # 8.5 H Lymphocytes # 0.7 L Monocytes # 0.9 Eosinophils # 0.0 Basophils # 0.0 Nucleated Red 0.0 Blood Cells # Sodium Level 146 H Potassium Level 5.5 H Chloride Level 115 H Carbon Dioxide 14 L Level Anion Gap 17 H Blood Urea 42 #H Nitrogen Creatinine 2.45 H Est Glomerular 27 L Filtrat Rate mL/min Glucose Level 97 # Calcium Level 8.9 Magnesium Level 2.3 Total Bilirubin 2.8 H Direct Bilirubin 0.10 Indirect 2.7 H Bilirubin Aspartate Amino Transf (AST/SGOT) Alanine 2231 H Aminotransferase (ALT/SGPT) Alkaline 73 Phosphatase Creatine Kinase 246 H Creatine Kinase 2.8 Index Creatinine Kinase 6.90 H MB (Mass) Troponin I 0.210 *H Total Protein 7.2 Albumin 3.9 Globulin 3.30 H Albumin/Globulin 1.18 Ratio Triglycerides 46 Level Cholesterol Level 101 LDL Cholesterol, 48 Calculated HDL Cholesterol 44 Cholesterol/HDL 2.2 Ratio Bedside Glucose 77 113 Lactic Acid Level 5.4 *H Test 04/13/19 12:29 Blood Gas Blood arterial Specimen Source Arterial Blood 04/13/2019 1:06:3 Date Drawn 9 PM Arterial Blood pH 7.299 *L (Temp corrected) Arterial Blood 22.5 L pCO2 (Temp correct) Arterial Blood 71.7 L pO2 (Temp corrected) Arterial Blood 10.8 L HCO3 Arterial Blood -13.4 L Base Excess Arterial Blood 91.8 L Oxygen Saturation Can Test ACCEPTAB Arterial Blood Left Radial Gas Puncture Site Arterial 0.8 Blood Carboxyhemo globin Arterial Blood 0.3 Methemoglobin Blood Gas A-a O2 259.5 H Differential Oxyhemoglobin 90.8 L Percent Blood Gas 37.0 Temperature Blood Gas HFNC Modality FiO2 50.0 Blood Gas MNGO RN Critical Value Read Back Blood Gas TM Notified Whom Blood Gas 04/13/2019 1:16:1 Notified Time 1 PM Medications Medication Current Medications Aspirin (Halfprin) 81 mg DAILY PO Last administered on 04/13/19at 11:59; Admin Dose 81 MG; Start 04/13/19 at 09:00 Atorvastatin Calcium (Lipitor) 20 mg QHS PO Last administered on 04/12/19at 20:15; Admin Dose 20 MG; Start 04/12/19 at 21:00 Ondansetron HCl (Zofran Inj) 4 mg Q6H PRN IV NAUSEA AND/OR VOMITING; Start 04/12/19 at 13:00 Albuterol (Proventil 0.083% (Neb)) 2.5 mg Q2H RESP THERAPY PRN NEB SHORTNESS OF BREATH; Start 04/12/19 at 13:00 Acetaminophen (Tylenol Tab) 650 mg Q6H PRN PO PAIN LEVEL 1-3 OR FEVER; Start 04/12/19 at 13:00 Docusate Sodium (Colace) 100 mg Q12H PRN PO CONSTIPATION; Start 04/12/19 at 13:00 Magnesium Hydroxide (Milk Of Mag) 30 ml DAILY PRN PO CONSTIPATION; Start at 13:00 Pantoprazole (Protonix Tab) 40 mg DAILY@06 PO Last administered on 04/13/19at 05:43; Admin Dose 40 MG; Start 04/13/19 at 06:00 Cefepime HCl 50 ml @ 100 mls/hr Q12 IVPB Last administered on 04/13/19at 10:23; Admin Dose 100 MLS/HR; Start 04/12/19 at 21:00 Apixaban (Eliquis) 5 mg BID PO Last administered on 04/13/19at 10:23; Admin Dose 5 MG; Start 04/12/19 at 21:00 Metoprolol Tartrate (Lopressor) 5 mg Q2H PRN IV heart rate over 110; Start 04/13/19 at 09:30 Metoprolol Succinate (Toprol Xl) 50 mg DAILY PO Last administered on 04/13/19at 12:00; Admin Dose 50 MG; Start 04/13/19 at 09:30 Bumetanide 12 mg/ Dextrose/Water 120 ml @ 10 mls/hr Q12H ONCE IV ; Start 04/13/19 at 13:30; Stop 04/14/19 at 01:29 Sodium Bicarbonate 100 meq/Dextrose 1,000 ml @ 75 mls/hr [id number] IV ; Start 04/13/19 at 14:00 MARVIN FOX MD Apr 13, 2019 15:32
[2019-04-13] MEDS: SODIUM BICARBONATE (IV ADD) 100 MEQ in DEXTROSE 5% 900 ML IV SCH (16:02)
[2019-04-13] MEDS ORDERED: LIDOCAINE 1% (MPF) 5 ML VIAL SC ONE (19:30)
[2019-04-13] MEDS: ATORVASTATIN 20 MG TAB PO SCH (21:05)
[2019-04-13] MEDS: METOPROLOL 5 MG INJ IV PRN (21:09)
[2019-04-13] MEDS: morphine 2 MG INJ IV PRN (23:20)
[2019-04-14] VITALS (49 sets, daily range): BP systolic 89–148; BP diastolic 69–130; PULSE 100–149; RESP 9–32
[2019-04-14] MEDS: METOPROLOL 5 MG INJ IV PRN ×2 (02:13→17:27)
[2019-04-14] MEDS: PANTOPRAZOLE (EC) 40 MG TAB PO SCH (05:07)
[2019-04-14] MEDS: SODIUM BICARBONATE (IV ADD) 100 MEQ in DEXTROSE 5% 900 ML IV SCH ×2 (05:07→14:55)
[2019-04-14] MEDS ORDERED: INSULIN REGULAR, HUMAN 100 UNIT/1 ML 3ML VIAL IVP STA (06:40)
--- NOTE | 2019-04-14 06:55 | PN ---
DATE: 04/13/2019 SUBJECTIVE: No acute events overnight. The patient is awake, on high flow oxygen. He is in no dist ress. WBC 10.1, H and H 14.9 and 49.5, platelets 203, neutrophils 83.9, BUN 42, creatinine 2.45. Lactic ac id this morning 5.4. Troponin 0.210, ALT 231, AST not resulted. DIAGNOSTICS: Liver ultrasound showed hepatic steatosis, no cholelithiasis, incompletely visualized r ight pleural effusion, common bile duct not visualized. Please see full report in the chart. Chest x-ray this morning revealed cardiomegaly, stable pulmonary vascular congestion and bilateral perihila r infiltrates. Please see full report in the chart. Renal ultrasound on admission was unremarkable. Extremity ultrasound revealed no DVT. ANTIMICROBIALS: The patient is on cefepime. MICROBIOLOGY: Blood cultures negative. INDWELLINGS: Cárdenas catheter. PHYSICAL EXAMINATION: GENERAL: Morbidly obese, well-developed elderly man who is awake, in no distress. HEENT: Head atraumatic, normocephalic. NECK: Supple. CHEST: Rise symmetrical. Breath sounds diminished to bases. HEART: S1, S2, irregular. ABDOMEN: Soft, bowel sounds present. EXTREMITIES: With trace edema. ASSESSMENT: 1. Clinical sepsis. 2. Acute hypoxemic respiratory failure, possibly secondary to underlying cardiomyopathy and congesti ve heart failure exacerbation. 3. Status post rapid atrial fibrillation. 4. Morbid obesity. 5. Transaminitis. 6. Acute kidney injury. 7. [id number] myocardial infarction. PLAN: The patient is clinically stable. We will keep him on antibiotics for now. We will swab his nares for MRSA and send urine for culture. Follow cardiology, pulmonary and renal recommendations. Dictated By: TISHA GO INS[employer] SALES SUPERVISOR for LOREE MERRITT MD NI/NTS Conf#: [id number] DID#: [id number] CC: MARVIN FOX MD;*EndCC*
[2019-04-14] MEDS ORDERED: DEXTROSE 50% 50 ML SYRINGE IV PRN (07:00)
[2019-04-14] MEDS ORDERED: FUROSEMIDE 20 MG INJ IV SCH (09:00)
--- NOTE | 2019-04-14 09:37 | CONS ---
Assessment/Plan Assessment/Plan Assessment/Plan (Daily) Chest x-ray showing cardiomegaly with very minimal pulmonary vascular congestion. Patient is on BiPAP 15/5 40% FiO2. Assessment and recommendations; 1. Patient admitted with shortness of breath due to new onset A. fib with RVR. Heart rate is well controlled. 2. Acute on chronic renal insufficiency with anuria. 3. Metabolic acidosis secondary to renal failure. 4. Shock liver likely from underlying cardiomyopathy. 5. Persistent leukocytosis, indicative of possible sepsis. Patient currently on appropriate antimicrobial regimen. 6. Mild hyperkalemia likely from renal failure. 7. History of hypertension. Continue current supportive care. Obtain ABG. Patient likely will be dialyzed. Nephrology consultants input is appreciated. Consultation Date/Type/Reason Admit Date/Time Apr 12, 2019 at 12:21 Initial Consult Date 04/13/19 Type of Consult Pulmonary/critical care Patient is a 63-year-old [place] gentleman who came into the hospital with history of shortness of breath for the last 1 day. Patient denied having any chest pain, any fever, wheezing or any sputum production. Upon evaluation patient was found to be in A. fib with RVR. Patient has been rate controlled. By the time I saw the patient in ICU, patient is sitting comfortably in bed and denied having any shortness of breath, rest pain, or any other symptoms. Past medical history; 1. History of apparent chronic renal insufficiency. 2. History of hypertension. Medications; reviewed. Allergies; none. Social history; patient never smoked. Occupational history; patient is retired. Family history; noncontributory. Review of systems; denies any headache, chest pain, shortness of breath has improved. Denies any coughing, wheezing, sputum production or fever. Denies any abdominal pain, nausea vomiting. Any orthopnea. General exam; elderly male, laying comfortably in bed. Currently in no distress. Requesting Provider: MARVIN FOX MD Date/Time of Note DATE: 04/14/19 TIME: 09:35 24 HR Interval Summary Free Text/Dictation Patient's condition is tenuous at best. Still on BiPAP. General exam; elderly male, awake and appropriately responsive. Currently in no distress. Exam/Review of Systems Exam Vitals Vital Signs Date Temp Pulse Resp B/P (MAP) Pulse Ox O2 O2 Flow FiO2 Time Delivery Rate 04/14/19 118 14 116/98 97 BIPAP 07:00 (104) 04/14/19 50 05:08 04/14/19 97.6 04:00 04/13/19 5.0 08:00 Intake and Output 04/13/19 04/13/19 04/14/19 1414:59 22:59 06:59 IntakeIntake Total 910 ml 860 ml 880 ml OutputOutput Total 50 ml 144 ml 233 ml BalanceBalance 860 ml 716 ml 647 ml Exam H EENT exam; supple neck, no lymphadenopathy. Positive JVD. No neck masses. Patient is on BiPAP. Chest exam; diminished breath sounds bilaterally. S1-S2 audible, no murmurs. Irregular rhythm. Abdomen exam; soft, nondistended. No organomegaly. Bowel sounds are audible. Extremity exam; no edema FACE MAN exam; no focal deficit. Results Result Diagram: 04/14/19 0523 04/14/19 0523 Results 24hrs Laboratory Tests Test 04/13/19 10:56 04/13/19 12:29 04/13/19 15:00 04/13/19 17:00 Lactic Acid Level 5.4 *H 3.7 *H Blood Gas Blood arterial Specimen Source Arterial Blood 04/13/2019 1:06:3 Date Drawn 9 PM Arterial Blood pH 7.299 *L (Temp corrected) Arterial Blood 22.5 L pCO2 (Temp correct) Arterial Blood 71.7 L pO2 (Temp corrected) Arterial Blood 10.8 L HCO3 Arterial Blood -13.4 L Base Excess Arterial Blood 91.8 L Oxygen Saturation Can Test ACCEPTAB Arterial Blood Left Radial Gas Puncture Site Arterial 0.8 Blood Carboxyhemo globin Arterial Blood 0.3 Methemoglobin Blood Gas A-a O2 259.5 H Differential Oxyhemoglobin 90.8 L Percent Blood Gas 37.0 Temperature Blood Gas HFNC Modality FiO2 50.0 Blood Gas MNGO RN Critical Value Read Back Blood Gas TM Notified Whom Blood Gas 04/13/2019 1:16:1 Notified Time 1 PM Urine Color PATIENCE Urine Clarity CLOUDY A Urine pH 5.0 Urine Specific 1.013 [place] Urine Ketones NEGATIVE Urine Nitrite NEGATIVE Urine Bilirubin NEGATIVE Urine NEGATIVE Urobilinogen Urine Leukocyte 1+ H Esterase Urine Microscopic 52 H RBC Urine Microscopic 7 H WBC Urine Bacteria FEW A Urine Mucus FEW A Urine Eosinophils 0.0 % Urine Hemoglobin 3+ H Urine Random 130.53 Creatinine Urine Random 20 L Sodium Urine 0.98 Protein/Creatinin e Ratio Urine Glucose NEGATIVE Urine Total 129.0 H Protein Hemoglobin 14.4 Hematocrit 46.8 Test 04/13/19 18:20 04/14/19 05:22 04/14/19 05:23 04/14/19 06:50 Urine Color PATIENCE Urine Clarity CLOUDY A Urine pH 5.0 Urine Specific 1.017 [place] Urine Ketones TRACE A Urine Nitrite NEGATIVE Urine Bilirubin NEGATIVE Urine NEGATIVE Urobilinogen Urine Leukocyte TRACE A Esterase Urine Microscopic 36 H RBC Urine Microscopic 8 H WBC Urine Squamous FEW Epithelial Cells Urine Amorphous FEW A Crystals Urine Bacteria FEW A Urine Hyaline FEW A Casts Urine Mucus MANY A Urine Hemoglobin 2+ H Urine Glucose NEGATIVE Urine Total 2+ H Protein Lactic Acid Level 2.9 *H White Blood Count 14.9 #H Red Blood Count 5.13 Hemoglobin 14.5 Hematocrit 46.0 Mean Corpuscular 89.7 Volume Mean Corpuscular 28.3 L Hemoglobin Mean Corpuscular 31.5 L Hemoglobin Concen t Red Cell 15.7 H Distribution Width Platelet Count 176 Mean Platelet 9.9 Volume Immature 0.700 H Granulocytes % Neutrophils % 88.4 H Lymphocytes % 4.2 L Monocytes % 6.6 Eosinophils % 0.0 Basophils % 0.1 Nucleated Red 0.5 H Blood Cells % Immature 0.100 H Granulocytes # Neutrophils # 13.2 H Lymphocytes # 0.6 L Monocytes # 1.0 H Eosinophils # 0.0 Basophils # 0.0 Nucleated Red 0.1 H Blood Cells # Sodium Level 139 Potassium Level 5.8 H Chloride Level 109 Carbon Dioxide 17 L Level Anion Gap 13 Blood Urea 64 H Nitrogen Creatinine 3.34 H Est Glomerular 19 L Filtrat Rate mL/min Glucose Level 139 # Uric Acid 14.2 H Calcium Level 7.7 L Magnesium Level 2.4 Total Bilirubin 1.8 H Direct Bilirubin 0.00 Indirect 1.8 H Bilirubin Aspartate Amino 4363 H Transf (AST/SGOT) Alanine 4246 H Aminotransferase (ALT/SGPT) Alkaline 87 Phosphatase Creatine Kinase 325 H Total Protein 7.1 Albumin 3.7 Globulin 3.40 H Albumin/Globulin 1.08 Ratio Procalcitonin 0.90 H Bedside Glucose 128 Test 04/14/19 07:23 Bedside Glucose 188 Medications Medication Current Medications Aspirin (Halfprin) 81 mg DAILY PO Last administered on 04/13/19 11:59; Admin Dose 81 MG; Start 04/13/19 at 09:00 Atorvastatin Calcium (Lipitor) 20 mg QHS PO Last administered on 04/13/19 21 :05; Admin Dose 20 MG; Start 04/12/19 at 21:00 Ondansetron HCl (Zofran Inj) 4 mg Q6H PRN IV NAUSEA AND/OR VOMITING; Start 04/12/19 at 13:00 Albuterol (Proventil 0.083% (Neb)) 2.5 mg Q2H RESP THERAPY PRN NEB SHORTNESS OF BREATH; Start 04/12/19 at 13:00 Acetaminophen (Tylenol Tab) 650 mg Q6H PRN PO PAIN LEVEL 1-3 OR FEVER; Start 04/12/19 at 13:00 Docusate Sodium (Colace) 100 mg Q12H PRN PO CONSTIPATION; Start 04/12/19 at 13:00 Magnesium Hydroxide (Milk Of Mag) 30 ml DAILY PRN PO CONSTIPATION; Start 04/12/19 at 13:00 Pantoprazole (Protonix Tab) 40 mg DAILY@06 PO Last administered on 04/14/19 05:07; Admin Dose 40 MG; Start 04/13/19 at 06:00 Cefepime HCl 50 ml @ 100 mls/hr Q12 IVPB Last administered on 04/13/19 21:05; Admin Dose 100 MLS/HR; Start 04/12/19 at 21:00 Apixaban (Eliquis) 5 mg BID PO Last administered on 04/13/19 21:05; Admin Dose 5 MG; Start 04/12/19 at 21:00 Metoprolol Tartrate (Lopressor) 5 mg Q2H PRN IV heart rate over 110 Last administered on 04/14/19 02:13; Admin Dose 5 MG; Start 04/13/19 at 09:30 Metoprolol Succinate (Toprol Xl) 50 mg DAILY PO Last administered on 04/13/19 12:00; Admin Dose 50 MG; Start 04/13/19 at 09:30 Sodium Bicarbonate 100 meq/Dextrose 1,000 ml @ 75 mls/hr [id number] IV Last administered on 04/14/19 05:07; Admin Dose 75 MLS/HR; Start 04/13/19 at 14:00 Morphine Sulfate (morphine) 2 mg Q4H PRN IV SEVERE PAIN LEVEL 7-10 Last admin istered on 04/13/19at 23:20; Admin Dose 2 MG; Start 04/13/19 at 23:30 Dextrose (D50w Syringe) ONCE PRN IV DECREASED GLUCOSE Last administered on 04/14/19at 06:51; Admin Dose 50 ML; Start 04/14/19 at 07:00; Stop 04/15/19 at 06:59 BONI BAER Apr 14, 2019 09:37
[2019-04-14] MEDS: APIXABAN 5 MG TABLET PO SCH ×2 (09:44→21:00)
[2019-04-14] MEDS: ASPIRIN (EC) 81 MG TAB PO SCH (09:44)
[2019-04-14] MEDS: CEFEPIME 1GM/50 ML (PMX) 50 ML IVPB SCH ×2 (09:44→22:04)
[2019-04-14] MEDS: METOPROLOL (XL) 50 MG TAB PO SCH (09:45)
--- NOTE | 2019-04-14 09:50 | PN ---
Date/Time of Note Date/Time of Note DATE: 04/14/19 TIME: 09:50 Assessment/Plan VTE Prophylaxis Risk score (from Nsg)>0 risk: 6 SCD applied (from Ns): No SCD contraindicated: other Pharmacological prophylaxis: apixaban Lines/Catheters IV Catheter Type (from Nrs): Saline Lock Urinary Cath still in place: Yes Reason Cath still needed: terminal illness/intractable pain Assessment/Plan Assessment/Plan 1. Acute hypoxic respiratory failure - CXR with noted moderate effusion on R. Currently on Bumex drip and will repeat CXR in am - continues on BIPAP as needed - Pulm consultation appreciated. - continue broad spectrum antibiotics - Nebs PRN 2. Acute systolic congestive heart failure - Cardiology on board and appreciate recommendations - Nephrology on board for management of diuretics. - Cardiology consultation appreciated - monitor I/O and daily weights - ECHO results noted with low EF 3. New onset afib with RVR - Continue on BB and dose increase. Will avoid cardizem given low EF and decreased myocardial contractility - Cardiology consultation appreciated - Started on Eliquis 4. DANYA - Nephrology consultation appreciated - most likely secondary to ATN in setting of afib with RVR, hypoxia, and cardiorenal - US results noted - will renally dose medications 5. Bilateral pneumonia - seen on CXR - ID consultation appreciated and managing antibiotics - continue Neb tx PRN 6. Elevated trop - most likely type 2 demand - no chest pain noted - will continue trending trops 7. Elevated LFT - Liver US noted - possible due to congestion - no abdominal pain noted 8. Sleep apnea - on BIPAP 9. HTN - continue home medications and adjust as needed 10. Sepsis secondary to PNA - lactic acid trending downward - IV antibiotics on board 11. Disposition - Will continue monitoring in ICU given still with RVR - Still with episodes of desaturations. If still with persistent effusion, will order thoracentesis tomorrow >30 minutes of critical care time spent with patient Result Diagram: 04/14/19 0523 04/14/19 0523 Results 24hrs Laboratory Tests Test 04/13/19 10:56 04/13/19 12:29 04/13/19 15:00 04/13/19 17:00 Lactic Acid Level 5.4 *H 3.7 *H Blood Gas Blood arterial Specimen Source Arterial Blood 04/13/2019 1:06:3 Date Drawn 9 PM Arterial Blood pH 7.299 *L (Temp corrected) Arterial Blood 22.5 L pCO2 (Temp correct) Arterial Blood 71.7 L pO2 (Temp corrected) Arterial Blood 10.8 L HCO3 Arterial Blood -13.4 L Base Excess Arterial Blood 91.8 L Oxygen Saturation Can Test ACCEPTAB Arterial Blood Left Radial Gas Puncture Site Arterial 0.8 Blood Carboxyhemo globin Arterial Blood 0.3 Methemoglobin Blood Gas A-a O2 259.5 H Differential Oxyhemoglobin 90.8 L Percent Blood Gas 37.0 Temperature Blood Gas HFNC Modality FiO2 50.0 Blood Gas MNGO RN Critical Value Read Back Blood Gas TM Notified Whom Blood Gas 04/13/2019 1:16:1 Notified Time 1 PM Urine Color PATIENCE Urine Clarity CLOUDY A Urine pH 5.0 Urine Specific 1.013 [place] Urine Ketones NEGATIVE Urine Nitrite NEGATIVE Urine Bilirubin NEGATIVE Urine NEGATIVE Urobilinogen Urine Leukocyte 1+ H Esterase Urine Microscopic 52 H RBC Urine Microscopic 7 H WBC Urine Bacteria FEW A Urine Mucus FEW A Urine Eosinophils 0.0 % Urine Hemoglobin 3+ H Urine Random 130.53 Creatinine Urine Random 20 L Sodium Urine 0.98 Protein/Creatinin e Ratio Urine Glucose NEGATIVE Urine Total 129.0 H Protein Hemoglobin 14.4 Hematocrit 46.8 Test 04/13/19 18:20 04/14/19 05:22 04/14/19 05:23 04/14/19 06:50 Urine Color PATIENCE Urine Clarity CLOUDY A Urine pH 5.0 Urine Specific 1.017 [place] Urine Ketones TRACE A Urine Nitrite NEGATIVE Urine Bilirubin NEGATIVE Urine NEGATIVE Urobilinogen Urine Leukocyte TRACE A Esterase Urine Microscopic 36 H RBC Urine Microscopic 8 H WBC Urine Squamous FEW Epithelial Cells Urine Amorphous FEW A Crystals Urine Bacteria FEW A Urine Hyaline FEW A Casts Urine Mucus MANY A Urine Hemoglobin 2+ H Urine Glucose NEGATIVE Urine Total 2+ H Protein Lactic Acid Level 2.9 *H White Blood Count 14.9 #H Red Blood Count 5.13 Hemoglobin 14.5 Hematocrit 46.0 Mean Corpuscular 89.7 Volume Mean Corpuscular 28.3 L Hemoglobin Mean Corpuscular 31.5 L Hemoglobin Concen t Red Cell 15.7 H Distribution Width Platelet Count 176 Mean Platelet 9.9 Volume Immature 0.700 H Granulocytes % Neutrophils % 88.4 H Lymphocytes % 4.2 L Monocytes % 6.6 Eosinophils % 0.0 Basophils % 0.1 Nucleated Red 0.5 H Blood Cells % Immature 0.100 H Granulocytes # Neutrophils # 13.2 H Lymphocytes # 0.6 L Monocytes # 1.0 H Eosinophils # 0.0 Basophils # 0.0 Nucleated Red 0.1 H Blood Cells # Sodium Level 139 Potassium Level 5.8 H Chloride Level 109 Carbon Dioxide 17 L Level Anion Gap 13 Blood Urea 64 H Nitrogen Creatinine 3.34 H Est Glomerular 19 L Filtrat Rate mL/min Glucose Level 139 # Uric Acid 14.2 H Calcium Level 7.7 L Magnesium Level 2.4 Total Bilirubin 1.8 H Direct Bilirubin 0.00 Indirect 1.8 H Bilirubin Aspartate Amino 4363 H Transf (AST/SGOT) Alanine 4246 H Aminotransferase (ALT/SGPT) Alkaline 87 Phosphatase Creatine Kinase 325 H Total Protein 7.1 Albumin 3.7 Globulin 3.40 H Albumin/Globulin 1.08 Ratio Procalcitonin 0.90 H Bedside Glucose 128 Test 04/14/19 07:23 Bedside Glucose 188 Subjective 24 Hr Interval Summary Free Text/Dictation Patient still with respiratory distress and complaining of some shortness of breath. Denies any chest pain or palpitations. Exam/Review of Systems Exam Vitals Vital Signs Date Temp Pulse Resp B/P (MAP) Pulse Ox O2 O2 Flow FiO2 Time Delivery Rate 04/14/19 118 14 116/98 97 BIPAP 07:00 (104) 04/14/19 50 05:08 04/14/19 97.6 04:00 04/13/19 5.0 08:00 Intake and Output 04/13/19 04/13/19 04/14/19 1515:00 23:00 07:00 IntakeIntake Total 910 ml 945 ml 795 ml OutputOutput Total 50 ml 180 ml 197 ml BalanceBalance 860 ml 765 ml 598 ml Exam General: mild respiratory distress, no BIPAP. answering questions appropriately Neck: Supple Chest: Nontender Lungs: Diminished diffusely with coarse breath sounds Heart: Normal S1-S2, irregular rhythm, tachycardia Abdomen: Soft , nontender, nondistended , bowel sounds are present. No guarding no rebound tenderness Extremities: improved swelling of lower extremities bilaterally Results Results 24hrs Laboratory Tests Test 04/13/19 10:56 04/13/19 12:29 04/13/19 15:00 04/13/19 17:00 Lactic Acid Level 5.4 *H 3.7 *H Blood Gas Blood arterial Specimen Source Arterial Blood 04/13/2019 1:06:3 Date Drawn 9 PM Arterial Blood pH 7.299 *L (Temp corrected) Arterial Blood 22.5 L pCO2 (Temp correct) Arterial Blood 71.7 L pO2 (Temp corrected) Arterial Blood 10.8 L HCO3 Arterial Blood -13.4 L Base Excess Arterial Blood 91.8 L Oxygen Saturation Can Test ACCEPTAB Arterial Blood Left Radial Gas Puncture Site Arterial 0.8 Blood Carboxyhemo globin Arterial Blood 0.3 Methemoglobin Blood Gas A-a O2 259.5 H Differential Oxyhemoglobin 90.8 L Percent Blood Gas 37.0 Temperature Blood Gas HFNC Modality FiO2 50.0 Blood Gas MNGO RN Critical Value Read Back Blood Gas TM Notified Whom Blood Gas 04/13/2019 1:16:1 Notified Time 1 PM Urine Color PATIENCE Urine Clarity CLOUDY A Urine pH 5.0 Urine Specific 1.013 [place] Urine Ketones NEGATIVE Urine Nitrite NEGATIVE Urine Bilirubin NEGATIVE Urine NEGATIVE Urobilinogen Urine Leukocyte 1+ H Esterase Urine Microscopic 52 H RBC Urine Microscopic 7 H WBC Urine Bacteria FEW A Urine Mucus FEW A Urine Eosinophils 0.0 % Urine Hemoglobin 3+ H Urine Random 130.53 Creatinine Urine Random 20 L Sodium Urine 0.98 Protein/Creatinin e Ratio Urine Glucose NEGATIVE Urine Total 129.0 H Protein Hemoglobin 14.4 Hematocrit 46.8 Test 04/13/19 18:20 04/14/19 05:22 04/14/19 05:23 04/14/19 06:50 Urine Color PATIENCE Urine Clarity CLOUDY A Urine pH 5.0 Urine Specific 1.017 [place] Urine Ketones TRACE A Urine Nitrite NEGATIVE Urine Bilirubin NEGATIVE Urine NEGATIVE Urobilinogen Urine Leukocyte TRACE A Esterase Urine Microscopic 36 H RBC Urine Microscopic 8 H WBC Urine Squamous FEW Epithelial Cells Urine Amorphous FEW A Crystals Urine Bacteria FEW A Urine Hyaline FEW A Casts Urine Mucus MANY A Urine Hemoglobin 2+ H Urine Glucose NEGATIVE Urine Total 2+ H Protein Lactic Acid Level 2.9 *H White Blood Count 14.9 #H Red Blood Count 5.13 Hemoglobin 14.5 Hematocrit 46.0 Mean Corpuscular 89.7 Volume Mean Corpuscular 28.3 L Hemoglobin Mean Corpuscular 31.5 L Hemoglobin Concen t Red Cell 15.7 H Distribution Width Platelet Count 176 Mean Platelet 9.9 Volume Immature 0.700 H Granulocytes % Neutrophils % 88.4 H Lymphocytes % 4.2 L Monocytes % 6.6 Eosinophils % 0.0 Basophils % 0.1 Nucleated Red 0.5 H Blood Cells % Immature 0.100 H Granulocytes # Neutrophils # 13.2 H Lymphocytes # 0.6 L Monocytes # 1.0 H Eosinophils # 0.0 Basophils # 0.0 Nucleated Red 0.1 H Blood Cells # Sodium Level 139 Potassium Level 5.8 H Chloride Level 109 Carbon Dioxide 17 L Level Anion Gap 13 Blood Urea 64 H Nitrogen Creatinine 3.34 H Est Glomerular 19 L Filtrat Rate mL/min Glucose Level 139 # Uric Acid 14.2 H Calcium Level 7.7 L Magnesium Level 2.4 Total Bilirubin 1.8 H Direct Bilirubin 0.00 Indirect 1.8 H Bilirubin Aspartate Amino 4363 H Transf (AST/SGOT) Alanine 4246 H Aminotransferase (ALT/SGPT) Alkaline 87 Phosphatase Creatine Kinase 325 H Total Protein 7.1 Albumin 3.7 Globulin 3.40 H Albumin/Globulin 1.08 Ratio Procalcitonin 0.90 H Bedside Glucose 128 Test 04/14/19 07:23 Bedside Glucose 188 Medications Medication Current Medications Aspirin (Halfprin) 81 mg DAILY PO Last administered on 04/14/19at 09:44; Admin Dose 81 MG; Start 04/13/19 at 09:00 Atorvastatin Calcium (Lipitor) 20 mg QHS PO Last administered on 04/13/19at 21: 05; Admin Dose 20 MG; Start 04/12/19 at 21:00 Ondansetron HCl (Zofran Inj) 4 mg Q6H PRN IV NAUSEA AND/OR VOMITING; Start 04/12/19 at 13:00 Albuterol (Proventil 0.083% (Neb)) 2.5 mg Q2H RESP THERAPY PRN NEB SHORTNESS OF BREATH; Start 04/12/19 at 13:00 Acetaminophen (Tylenol Tab) 650 mg Q6H PRN PO PAIN LEVEL 1-3 OR FEVER; Start 04/12/19 at 13:00 Docusate Sodium (Colace) 100 mg Q12H PRN PO CONSTIPATION; Start 04/12/19 at 13:00 Magnesium Hydroxide (Milk Of Mag) 30 ml DAILY PRN PO CONSTIPATION; Start 04/12/19 at 13:00 Pantoprazole (Protonix Tab) 40 mg DAILY@06 PO Last administered on 04/14/19at 05:07; Admin Dose 40 MG; Start 04/13/19 at 06:00 Cefepime HCl 50 ml @ 100 mls/hr Q12 IVPB Last administered on 04/14/19 09:44; Admin Dose 100 MLS/HR; Start 04/12/19 at 21:00 Apixaban (Eliquis) 5 mg BID PO Last administered on 04/14/19 09:44; Admin Dose 5 MG; Start 04/12/19 at 21:00 Metoprolol Tartrate (Lopressor) 5 mg Q2H PRN IV heart rate over 110 Last administered on 04/14/19 02:13; Admin Dose 5 MG; Start 04/13/19 at 09:30 Metoprolol Succinate (Toprol Xl) 50 mg DAILY PO Last administered on 04/14/19 09:45; Admin Dose 50 MG; Start 04/13/19 at 09:30 Sodium Bicarbonate 100 meq/Dextrose 1,000 ml @ 75 mls/hr [id number] IV Last administered on 04/14/19 05:07; Admin Dose 75 MLS/HR; Start 04/13/19 at 14:00 Morphine Sulfate (morphine) 2 mg Q4H PRN IV SEVERE PAIN LEVEL 7-10 Last admini stered on 04/13/19 23:20; Admin Dose 2 MG; Start 04/13/19 at 23:30 Dextrose (D50w Syringe) ONCE PRN IV DECREASED GLUCOSE Last administered on 04/14/19 06:51; Admin Dose 50 ML; Start 04/14/19 at 07:00; Stop 04/15/19 at 06:59 MARVIN FOX MD Apr 14, 2019 09:50
--- NOTE | 2019-04-14 10:21 | CONS ---
Assessment/Plan Assessment/Plan Assessment/Plan (Daily) 1. Oliguric Acute kidney injury on CKD 2/2 Hemodynamics from CHF and atrial fibrillation RVR , also contributing ATN from sepsis 2. acute hypoxic respiratory failure requiring BIPAP due to Bilateral PNA and CHF 3. sepsis due to Bilateral PNA 4. Acute CHF exacerbation with EF 20% on ECHO, most likely new onset since pt has been denying any H/o CHF 5. New onset afib with RVR- on cardizem gtt 6. H/o HTN 7. H/o Sleep apnea 8. H/o Possible CKD but pt has been denying it.. His Renal Us showed normal echogenicity of kidneys but kidneys are small in size, The right kidney measures 9.5 cm. The left kidney measures 9.2 cm. Plan: K 5.8, BUN/Cr 64/3.34, HCo3 17- s/p Bumex gtt for 12 hr, Urine output 427- will give albumin 25 % 100ml Q 8 hr x 6 doses along with IV bumex at 1 mg/hr x 12 hr today Monitor electorlytes and replace as needed IV abx for sepsis and PNA, renally dose all abx , ID following Echo showed EF 20% wiht Moderate MR, moderate to severe TR, Enlarged RV and RVSP 52- we are worried about PE but pt has elevated Cr so he can not have CT angiogram to rule out PE, V/Q scan has been ordered but pt is very unstable to go to V/Q scan pt has been on Eliquis 5 mg PO BID will follow up Consultation Date/Type/Reason Admit Date/Time Apr 12, 2019 at 12:21 Initial Consult Date 04/13/19 Type of Consult NEPHROLOGY Requesting Provider: MARVIN FOX MD Date/Time of Note DATE: 04/14/19 TIME: 10:21 Exam/Review of Systems Exam Vitals Vital Signs Date Temp Pulse Resp B/P (MAP) Pulse Ox O2 O2 Flow FiO2 Time Delivery Rate 04/14/19 118 14 116/98 97 BIPAP 07:00 (104) 04/14/19 50 05:08 04/14/19 97.6 04:00 04/13/19 5.0 08:00 Intake and Output 04/13/19 04/13/19 04/14/19 1515:00 23:00 07:00 IntakeIntake Total 910 ml 945 ml 795 ml OutputOutput Total 50 ml 180 ml 197 ml BalanceBalance 860 ml 765 ml 598 ml Exam Constitutional: moderate distress on BIPAP Respiratory: congested cough, crackles/rales, diminished breath sounds Cardiovascular: regular rate and rhythm, nl pulses Gastrointestinal: soft, non-tender Musculoskeletal: muscle weakness, swelling (2-3+ pitting edema ) Extremities: normal pulses Neurological: lethargic on BIPAP Results Result Diagram: 04/14/1952204/14/19522 Results 24hrs Laboratory Tests Test 04/13/19 10:56 04/13/19 12:29 04/13/19 15:00 04/13/19 17:00 Lactic Acid Level 5.4 *H 3.7 *H Blood Gas Blood arterial Specimen Source Arterial Blood 04/13/2019 1:06:3 Date Drawn 9 PM Arterial Blood pH 7.299 *L (Temp corrected) Arterial Blood 22.5 L pCO2 (Temp correct) Arterial Blood 71.7 L pO2 (Temp corrected) Arterial Blood 10.8 L HCO3 Arterial Blood -13.4 L Base Excess Arterial Blood 91.8 L Oxygen Saturation Can Test ACCEPTAB Arterial Blood Left Radial Gas Puncture Site Arterial 0.8 Blood Carboxyhemo globin Arterial Blood 0.3 Methemoglobin Blood Gas A-a O2 259.5 H Differential Oxyhemoglobin 90.8 L Percent Blood Gas 37.0 Temperature Blood Gas HFNC Modality FiO2 50.0 Blood Gas MNGO RN Critical Value Read Back Blood Gas TM Notified Whom Blood Gas 04/13/2019 1:16:1 Notified Time 1 PM Urine Color PATIENCE Urine Clarity CLOUDY A Urine pH 5.0 Urine Specific 1.013 [place] Urine Ketones NEGATIVE Urine Nitrite NEGATIVE Urine Bilirubin NEGATIVE Urine NEGATIVE Urobilinogen Urine Leukocyte 1+ H Esterase Urine Microscopic 52 H RBC Urine Microscopic 7 H WBC Urine Bacteria FEW A Urine Mucus FEW A Urine Eosinophils 0.0 % Urine Hemoglobin 3+ H Urine Random 130.53 Creatinine Urine Random 20 L Sodium Urine 0.98 Protein/Creatinin e Ratio Urine Glucose NEGATIVE Urine Total 129.0 H Protein Hemoglobin 14.4 Hematocrit 46.8 Test 04/13/19 18:20 04/14/19 05:22 04/14/19 05:23 04/14/19 06:50 Urine Color PATIENCE Urine Clarity CLOUDY A Urine pH 5.0 Urine Specific 1.017 [place] Urine Ketones TRACE A Urine Nitrite NEGATIVE Urine Bilirubin NEGATIVE Urine NEGATIVE Urobilinogen Urine Leukocyte TRACE A Esterase Urine Microscopic 36 H RBC Urine Microscopic 8 H WBC Urine Squamous FEW Epithelial Cells Urine Amorphous FEW A Crystals Urine Bacteria FEW A Urine Hyaline FEW A Casts Urine Mucus MANY A Urine Hemoglobin 2+ H Urine Glucose NEGATIVE Urine Total 2+ H Protein Lactic Acid Level 2.9 *H White Blood Count 14.9 #H Red Blood Count 5.13 Hemoglobin 14.5 Hematocrit 46.0 Mean Corpuscular 89.7 Volume Mean Corpuscular 28.3 L Hemoglobin Mean Corpuscular 31.5 L Hemoglobin Concen t Red Cell 15.7 H Distribution Width Platelet Count 176 Mean Platelet 9.9 Volume Immature 0.700 H Granulocytes % Neutrophils % 88.4 H Lymphocytes % 4.2 L Monocytes % 6.6 Eosinophils % 0.0 Basophils % 0.1 Nucleated Red 0.5 H Blood Cells % Immature 0.100 H Granulocytes # Neutrophils # 13.2 H Lymphocytes # 0.6 L Monocytes # 1.0 H Eosinophils # 0.0 Basophils # 0.0 Nucleated Red 0.1 H Blood Cells # Sodium Level 139 Potassium Level 5.8 H Chloride Level 109 Carbon Dioxide 17 L Level Anion Gap 13 Blood Urea 64 H Nitrogen Creatinine 3.34 H Est Glomerular 19 L Filtrat Rate mL/min Glucose Level 139 # Uric Acid 14.2 H Calcium Level 7.7 L Magnesium Level 2.4 Total Bilirubin 1.8 H Direct Bilirubin 0.00 Indirect 1.8 H Bilirubin Aspartate Amino 4363 H Transf (AST/SGOT) Alanine 4246 H Aminotransferase (ALT/SGPT) Alkaline 87 Phosphatase Creatine Kinase 325 H Total Protein 7.1 Albumin 3.7 Globulin 3.40 H Albumin/Globulin 1.08 Ratio Procalcitonin 0.90 H Bedside Glucose 128 Test 04/14/19 07:23 04/14/19 09:34 Bedside Glucose 188 Blood Gas Blood arterial Specimen Source Arterial Blood 04/14/2019 9:56:0 Date Drawn 1 AM Arterial Blood pH 7.234 *L (Temp corrected) Arterial Blood 41.4 pCO2 (Temp correct) Arterial Blood 69.6 L pO2 (Temp corrected) Arterial Blood 17.1 L HCO3 Arterial Blood -9.9 L Base Excess Arterial Blood 89.2 L Oxygen Saturation Can Test ACCEPTAB Arterial Blood Left Radial Gas Puncture Site Arterial 0.9 Blood Carboxyhemo globin Arterial Blood 0.1 Methemoglobin Blood Gas A-a O2 160.8 H Differential Oxyhemoglobin 88.3 L Percent Blood Gas 37.0 Temperature Blood Gas NASAL CANNULA Modality FiO2 39.0 Blood Gas SANDIE GONZALES Critical Value Read Back Blood Gas TM Notified Whom Blood Gas 04/14/2019 10:15: Notified Time 39 AM Medications Medication Current Medications Aspirin (Halfprin) 81 mg DAILY PO Last administered on 04/14/19 09:44; Admin Dose 81 MG; Start 04/13/19 at 09:00 Atorvastatin Calcium (Lipitor) 20 mg QHS PO Last administered on 04/13/19 21:05; Admin Dose 20 MG; Start 04/12/19 at 21:00 Ondansetron HCl (Zofran Inj) 4 mg Q6H PRN IV NAUSEA AND/OR VOMITING; Start 04/12/19 at 13:00 Albuterol (Proventil 0.083% (Neb)) 2.5 mg Q2H RESP THERAPY PRN NEB SHORTNESS OF BREATH; Start 04/12/19 at 13:00 Acetaminophen (Tylenol Tab) 650 mg Q6H PRN PO PAIN LEVEL 1-3 OR FEVER; Start 04/12/19 at 13:00 Docusate Sodium (Colace) 100 mg Q12H PRN PO CONSTIPATION; Start 04/12/19 at 13:00 Magnesium Hydroxide (Milk Of Mag) 30 ml DAILY PRN PO CONSTIPATION; Start 04/12/19 at 13:00 Pantoprazole (Protonix Tab) 40 mg DAILY@06 PO Last administered on 04/14/19at 05:07; Admin Dose 40 MG; Start 04/13/19 at 06:00 Cefepime HCl 50 ml @ 100 mls/hr Q12 IVPB Last administered on 04/14/19 09:44; Admin Dose 100 MLS/HR; Start 04/12/19 at 21:00 Apixaban (Eliquis) 5 mg BID PO Last administered on 04/14/19 09:44; Admin Dose 5 MG; Start 04/12/19 at 21:00 Metoprolol Tartrate (Lopressor) 5 mg Q2H PRN IV heart rate over 110 Last administered on 04/14/19at 02:13; Admin Dose 5 MG; Start 04/13/19 at 09:30 Metoprolol Succinate (Toprol Xl) 50 mg DAILY PO Last administered on 04/14/19 09:45; Admin Dose 50 MG; Start 04/13/19 at 09:30 Sodium Bicarbonate 100 meq/Dextrose 1,000 ml @ 75 mls/hr [id number] IV Last adm inistered on 04/14/19 05:07; Admin Dose 75 MLS/HR; Start 04/13/19 at 14:00 Morphine Sulfate (morphine) 2 mg Q4H PRN IV SEVERE PAIN LEVEL 7-10 Last administered on 04/13/19at 23:20; Admin Dose 2 MG; Start 04/13/19 at 23:30 Dextrose (D50w Syringe) ONCE PRN IV DECREASED GLUCOSE Last administered on 04/14/19 06:51; Admin Dose 50 ML; Start 04/14/19 at 07:00; Stop 04/15/19 at 06:59 RYAN VICENTE MD Apr 14, 2019 10:21
[2019-04-14] MEDS ORDERED: NA BICARBONATE 8.4% 50 ML SYG IV STA ×2 (10:56)
--- NOTE | 2019-04-14 11:19 | CONS ---
Assessment/Plan Cardiology NYHA: IV Heart Failure Type: Acute Heart Failure Type: Both Assessment/Plan Hospital Course (Demo Recall) 63 yo with acute congestive heart failure, possible pneumonia, and rapid atrial fibrillation. Impression: Atrial fib, rapid, unclear duration Acute systolic and diastolic heart failure, unclear duration of cardiomyopathy, decompensated Possible pneumonia H/o hypertension Renal insufficiency, unclear if acute or chronic, with worsening since admission Recommendations: Increase metoprolol succinate to 100 mg po daily, with iv metoprolol tartrate for breakthrough elevated heart rate Given his severely reduced LVEF, diltiazem is not a good choice for rate control because it depresses myocardial contractility Prefer not to use digoxin given renal insufficiency, but if needed for rate control, can carefully add this No munir/arb due to acute renal failure and hyperkalemia Eliquis, CHADS-VASC is at least one due to h/o hypertension, but suspect he also has arterial disease given wall motion abnormalities on echo When clinically improved, consider nuclear stress vs cath to evaluate for CAD Consultation Date/Type/Reason Admit Date/Time Apr 12, 2019 at 12:21 Initial Consult Date 04/13/19 Type of Consult Cardiology Requesting Provider: MARVIN FOX MD Date/Time of Note DATE: 04/14/19 TIME: 11:16 24 HR Interval Summary Free Text/Dictation Unable to wake the patient, he is moaning. Subjective hx not possible: pt non-verbal Exam/Review of Systems Vital Signs Vitals Vital Signs Date Temp Pulse Resp B/P (MAP) Pulse Ox O2 O2 Flow FiO2 Time Delivery Rate 04/14/19 125 24 94 10:00 04/14/19 97.5 89/69 (76) BIPAP 09:00 04/14/19 50 05:08 04/13/19 5.0 08:00 Intake and Output 04/13/19 04/13/19 04/14/19 1515:00 23:00 07:00 IntakeIntake Total 910 ml 945 ml 795 ml OutputOutput Total 50 ml 180 ml 197 ml BalanceBalance 860 ml 765 ml 598 ml Exam Constitutional: other (somnolent, moaning) Head: normocephalic, atraumatic Eyes: nl lids ENMT: nl external ears & nose Neck: No bruits Respiratory: clear to auscultation (anteriorly) Cardiovascular: irregular rhythm (rapid) Gastrointestinal: non-tender, distended Musculoskeletal: nl extremities to inspection Extremities: No edema Neurological: lethargic Skin: nl turgor Labs Result Diagram: 04/14/19 0523 04/14/19 0523 Results 24hrs Laboratory Tests Test 04/13/19 12:29 04/13/19 15:00 04/13/19 17:00 04/13/19 18:20 Blood Gas Blood arterial Specimen Source Arterial Blood 04/13/2019 1:06:3 Date Drawn 9 PM Arterial Blood pH 7.299 *L (Temp corrected) Arterial Blood 22.5 L pCO2 (Temp correct) Arterial Blood 71.7 L pO2 (Temp corrected) Arterial Blood 10.8 L HCO3 Arterial Blood -13.4 L Base Excess Arterial Blood 91.8 L Oxygen Saturation Can Test ACCEPTAB Arterial Blood Left Radial Gas Puncture Site Arterial 0.8 Blood Carboxyhemo globin Arterial Blood 0.3 Methemoglobin Blood Gas A-a O2 259.5 H Differential Oxyhemoglobin 90.8 L Percent Blood Gas 37.0 Temperature Blood Gas HFNC Modality FiO2 50.0 Blood Gas MNGO RN Critical Value Read Back Blood Gas TM Notified Whom Blood Gas 04/13/2019 1:16:1 Notified Time 1 PM Urine Color PATIENCE PATIENCE Urine Clarity CLOUDY A CLOUDY A Urine pH 5.0 5.0 Urine Specific 1.013 1.017 [place] Urine Ketones NEGATIVE TRACE A Urine Nitrite NEGATIVE NEGATIVE Urine Bilirubin NEGATIVE NEGATIVE Urine NEGATIVE NEGATIVE Urobilinogen Urine Leukocyte 1+ H TRACE A Esterase Urine Microscopic 52 H 36 H RBC Urine Microscopic 7 H 8 H WBC Urine Bacteria FEW A FEW A Urine Mucus FEW A MANY A Urine Eosinophils 0.0 % Urine Hemoglobin 3+ H 2+ H Urine Random 130.53 Creatinine Urine Random 20 L Sodium Urine 0.98 Protein/Creatinin e Ratio Urine Glucose NEGATIVE NEGATIVE Urine Total 129.0 H 2+ H Protein Hemoglobin 14.4 Hematocrit 46.8 Lactic Acid Level 3.7 *H Urine Squamous FEW Epithelial Cells Urine Amorphous FEW A Crystals Urine Hyaline FEW A Casts Test 04/14/19 05:22 04/14/19 05:23 04/14/19 06:50 04/14/19 07:23 Lactic Acid Level 2.9 *H White Blood Count 14.9 #H Red Blood Count 5.13 Hemoglobin 14.5 Hematocrit 46.0 Mean Corpuscular 89.7 Volume Mean Corpuscular 28.3 L Hemoglobin Mean Corpuscular 31.5 L Hemoglobin Concen t Red Cell 15.7 H Distribution Width Platelet Count 176 Mean Platelet 9.9 Volume Immature 0.700 H Granulocytes % Neutrophils % 88.4 H Lymphocytes % 4.2 L Monocytes % 6.6 Eosinophils % 0.0 Basophils % 0.1 Nucleated Red 0.5 H Blood Cells % Immature 0.100 H Granulocytes # Neutrophils # 13.2 H Lymphocytes # 0.6 L Monocytes # 1.0 H Eosinophils # 0.0 Basophils # 0.0 Nucleated Red 0.1 H Blood Cells # Sodium Level 139 Potassium Level 5.8 H Chloride Level 109 Carbon Dioxide 17 L Level Anion Gap 13 Blood Urea 64 H Nitrogen Creatinine 3.34 H Est Glomerular 19 L Filtrat Rate mL/min Glucose Level 139 # Uric Acid 14.2 H Calcium Level 7.7 L Magnesium Level 2.4 Total Bilirubin 1.8 H Direct Bilirubin 0.00 Indirect 1.8 H Bilirubin Aspartate Amino 4363 H Transf (AST/SGOT) Alanine 4246 H Aminotransferase (ALT/SGPT) Alkaline 87 Phosphatase Creatine Kinase 325 H Total Protein 7.1 Albumin 3.7 Globulin 3.40 H Albumin/Globulin 1.08 Ratio Procalcitonin 0.90 H Bedside Glucose 128 188 Test 04/14/19 09:34 Blood Gas Blood arterial Specimen Source Arterial Blood 04/14/2019 9:56:0 Date Drawn 1 AM Arterial Blood pH 7.234 *L (Temp corrected) Arterial Blood 41.4 pCO2 (Temp correct) Arterial Blood 69.6 L pO2 (Temp corrected) Arterial Blood 17.1 L HCO3 Arterial Blood -9.9 L Base Excess Arterial Blood 89.2 L Oxygen Saturation Can Test ACCEPTAB Arterial Blood Left Radial Gas Puncture Site Arterial 0.9 Blood Carboxyhemo globin Arterial Blood 0.1 Methemoglobin Blood Gas A-a O2 160.8 H Differential Oxyhemoglobin 88.3 L Percent Blood Gas 37.0 Temperature Blood Gas NASAL CANNULA Modality FiO2 39.0 Blood Gas SANDIE GONZALES Critical Value Read Back Blood Gas TM Notified Whom Blood Gas 04/14/2019 10:15: Notified Time 39 AM Imaging Imaging telemetry reviewed, atrial fibrillation with rapid rate with pulse gradually increasing over this shift Medications Medications Current Medications Aspirin (Halfprin) 81 mg DAILY PO Last administered on 04/14/19at 09:44; Admin Dose 81 MG; Start 04/13/19 at 09:00 Atorvastatin Calcium (Lipitor) 20 mg QHS PO Last administered on 04/13/19at 21:05; Admin Dose 20 MG; Start 04/12/19 at 21:00 Ondansetron HCl (Zofran Inj) 4 mg Q6H PRN IV NAUSEA AND/OR VOMITING; Start 04/12/19 at 13:00 Albuterol (Proventil 0.083% (Neb)) 2.5 mg Q2H RESP THERAPY PRN NEB SHORTNESS OF BREATH; Start 04/12/19 at 13:00 Acetaminophen (Tylenol Tab) 650 mg Q6H PRN PO PAIN LEVEL 1-3 OR FEVER; Start 04/12/19 at 13:00 Docusate Sodium (Colace) 100 mg Q12H PRN PO CONSTIPATION; Start 04/12/19 at 13:00 Magnesium Hydroxide (Milk Of Mag) 30 ml DAILY PRN PO CONSTIPATION; Start 04/12/19 at 13:00 Pantoprazole (Protonix Tab) 40 mg DAILY@06 PO Last administered on 04/14/19 05:07; Admin Dose 40 MG; Start 04/13/19 at 06:00 Cefepime HCl 50 ml @ 100 mls/hr Q12 IVPB Last administered on 04/14/19 09:44; Admin Dose 100 MLS/HR; Start 04/12/19 at 21:00 Apixaban (Eliquis) 5 mg BID PO Last administered on 04/14/19 09:44; Admin Dose 5 MG; Start 04/12/19 at 21:00 Metoprolol Tartrate (Lopressor) 5 mg Q2H PRN IV heart rate over 110 Last administered on 04/14/19at 02:13; Admin Dose 5 MG; Start 04/13/19 at 09:30 Metoprolol Succinate (Toprol Xl) 50 mg DAILY PO Last administered on 04/14/19 09:45; Admin Dose 50 MG; Start 04/13/19 at 09:30 Sodium Bicarbonate 100 meq/Dextrose 1,000 ml @ 100 mls/hr Q10H IV Last administered on 04/14/19 05:07; Admin Dose 75 MLS/HR; Start 04/13/19 at 14:00 Morphine Sulfate (morphine) 2 mg Q4H PRN IV SEVERE PAIN LEVEL 7-10 Last administered on 04/13/19at 23:20; Admin Dose 2 MG; Start 04/13/19 at 23:30 Dextrose (D50w Syringe) ONCE PRN IV DECREASED GLUCOSE Last administered on 04/14/19at 06:51; Admin Dose 50 ML; Start 04/14/19 at 07:00; Stop 04/15/19 at 06 :59 Albumin Human 100 ml @ 100 mls/hr Q8H IV ; Start 04/14/19 at 10:30; Stop 04/16/19 at 03:29 Bumetanide 12 mg/ Dextrose/Water 120 ml @ 10 mls/hr Q12H ONCE IV Last administered on 04/14/19at 11:12; Admin Dose 10 MLS/HR; Start 04/14/19 at 11:30; Stop 04/14/19 at 23:29 CATHERINE DEL ANGEL Apr 14, 2019 11:19
[2019-04-14] MEDS ORDERED: BUMETANIDE 12 MG in DEXTROSE 5% 72 ML IV ONE (11:30)
[2019-04-14] MEDS ORDERED: METOPROLOL (XL) 50 MG TAB PO ONE (11:30)
[2019-04-14] MEDS: ALBUMIN HUMAN 25% 100 ML IV SCH ×2 (11:48→18:29)
--- NOTE | 2019-04-14 12:59 | CONS ---
Assessment/Plan Assessment/Plan Hospital Course (Demo Recall) No acute changes overnight patient was started on Bumex drip he is on high flow oxygen still with significant shortness of breath he is hypothermic. WBC 14.9 platelets 176 neutrophils 88.4 BUN 64 creatinine 3.34 Microbiology: All cultures negative Chest x-ray this morning revealed bilateral perihilar consolidations as well as moderate right and small left pleural effusions ANTIMICROBIALS: Cefepime. INDWELLINGS: Cárdenas catheter. PHYSICAL EXAMINATION: GENERAL: Morbidly obese, well-developed elderly man who is awake, in no distress. HEENT: Head atraumatic, normocephalic. NECK: Supple. CHEST: Rise symmetrical. Breath sounds diminished to bases. HEART: S1, S2, irregular. ABDOMEN: Soft, bowel sounds present. EXTREMITIES: With trace edema. ASSESSMENT: 1. Clinical sepsis ?PNA. 2. Acute hypoxemic respiratory failure, possibly secondary to underlying cardiomyopathy and congestive heart failure exacerbation. 3. Status post rapid atrial fibrillation. 4. Morbid obesity. 5. Transaminitis. 6. Acute kidney injury. 7. [id number] myocardial infarction. PLAN: The patient is clinically unchanged. We will keep him on antibiotics for now. Follow cardiology, pulmonary and renal recommendations. Consultation Date/Type/Reason Admit Date/Time Apr 12, 2019 at 12:21 Initial Consult Date 04/13/19 Type of Consult id Requesting Provider: MARVIN FOX MD Date/Time of Note DATE: 04/14/19 TIME: 12:57 Exam/Review of Systems Exam Vitals Vital Signs Date Temp Pulse Resp B/P (MAP) Pulse Ox O2 O2 Flow FiO2 Time Delivery Rate 04/14/19 125 24 94 10:00 04/14/19 97.5 89/69 (76) BIPAP 09:00 04/14/19 50 05:08 04/13/19 5.0 08:00 Intake and Output 04/13/19 04/13/19 04/14/19 1414:59 22:59 06:59 IntakeIntake Total 910 ml 860 ml 880 ml OutputOutput Total 50 ml 144 ml 233 ml BalanceBalance 860 ml 716 ml 647 ml Results Result Diagram: 04/14/19 0523 04/14/19 0523 Results 24hrs Laboratory Tests Test 04/13/19 15:00 7/24/19 17:00 04/13/19 18:20 04/14/19 05:22 Urine Color PATIENCE PATIENCE Urine Clarity CLOUDY A CLOUDY A Urine pH 5.0 5.0 Urine Specific 1.013 1.017 [place] Urine Ketones NEGATIVE TRACE A Urine Nitrite NEGATIVE NEGATIVE Urine Bilirubin NEGATIVE NEGATIVE Urine NEGATIVE NEGATIVE Urobilinogen Urine Leukocyte 1+ H TRACE A Esterase Urine Microscopic 52 H 36 H RBC Urine Microscopic 7 H 8 H WBC Urine Bacteria FEW A FEW A Urine Mucus FEW A MANY A Urine Eosinophils 0.0 % Urine Hemoglobin 3+ H 2+ H Urine Random 130.53 Creatinine Urine Random 20 L Sodium Urine 0.98 Protein/Creatinin e Ratio Urine Glucose NEGATIVE NEGATIVE Urine Total 129.0 H 2+ H Protein Hemoglobin 14.4 Hematocrit 46.8 Lactic Acid Level 3.7 *H 2.9 *H Urine Squamous FEW Epithelial Cells Urine Amorphous FEW A Crystals Urine Hyaline FEW A Casts Test 04/14/19 05:23 04/14/19 06:50 04/14/19 07:23 04/14/19 09:34 White Blood Count 14.9 #H Red Blood Count 5.13 Hemoglobin 14.5 Hematocrit 46.0 Mean Corpuscular 89.7 Volume Mean Corpuscular 28.3 L Hemoglobin Mean Corpuscular 31.5 L Hemoglobin Concen t Red Cell 15.7 H Distribution Width Platelet Count 176 Mean Platelet 9.9 Volume Immature 0.700 H Granulocytes % Neutrophils % 88.4 H Lymphocytes % 4.2 L Monocytes % 6.6 Eosinophils % 0.0 Basophils % 0.1 Nucleated Red 0.5 H Blood Cells % Immature 0.100 H Granulocytes # Neutrophils # 13.2 H Lymphocytes # 0.6 L Monocytes # 1.0 H Eosinophils # 0.0 Basophils # 0.0 Nucleated Red 0.1 H Blood Cells # Sodium Level 139 Potassium Level 5.8 H Chloride Level 109 Carbon Dioxide 17 L Level Anion Gap 13 Blood Urea 64 H Nitrogen Creatinine 3.34 H Est Glomerular 19 L Filtrat Rate mL/min Glucose Level 139 # Uric Acid 14.2 H Calcium Level 7.7 L Magnesium Level 2.4 Total Bilirubin 1.8 H Direct Bilirubin 0.00 Indirect 1.8 H Bilirubin Aspartate Amino 4363 H Transf (AST/SGOT) Alanine 4246 H Aminotransferase (ALT/SGPT) Alkaline 87 Phosphatase Creatine Kinase 325 H Total Protein 7.1 Albumin 3.7 Globulin 3.40 H Albumin/Globulin 1.08 Ratio Procalcitonin 0.90 H Bedside Glucose 128 188 Blood Gas Blood arterial Specimen Source Arterial Blood 04/14/2019 9:56:0 Date Drawn 1 AM Arterial Blood pH 7.234 *L (Temp corrected) Arterial Blood 41.4 pCO2 (Temp correct) Arterial Blood 69.6 L pO2 (Temp corrected) Arterial Blood 17.1 L HCO3 Arterial Blood -9.9 L Base Excess Arterial Blood 89.2 L Oxygen Saturation Can Test ACCEPTAB Arterial Blood Left Radial Gas Puncture Site Arterial 0.9 Blood Carboxyhemo globin Arterial Blood 0.1 Methemoglobin Blood Gas A-a O2 160.8 H Differential Oxyhemoglobin 88.3 L Percent Blood Gas 37.0 Temperature Blood Gas NASAL CANNULA Modality FiO2 39.0 Blood Gas SANDIE GONZALES Critical Value Read Back Blood Gas TM Notified Whom Blood Gas 04/14/2019 10:15: Notified Time 39 AM Test 04/14/19 10:50 Hepatitis B Pending Surface Antigen Hepatitis B Core Pending Total Antibody Hepatitis C Pending Antibody Medications Medication Current Medications Aspirin (Halfprin) 81 mg DAILY PO Last administered on 04/14/19at 09:44; Admin Dose 81 MG; Start 04/13/19 at 09:00 Atorvastatin Calcium (Lipitor) 20 mg QHS PO Last administered on 04/13/19at 21:05; Admin Dose 20 MG; Start 04/12/19 at 21:00 Ondansetron HCl (Zofran Inj) 4 mg Q6H PRN IV NAUSEA AND/OR VOMITING; Start 04/12/19 at 13:00 Albuterol (Proventil 0.083% (Neb)) 2.5 mg Q2H RESP THERAPY PRN NEB SHORTNESS OF BREATH; Start 04/12/19 at 13:00 Acetaminophen (Tylenol Tab) 650 mg Q6H PRN PO PAIN LEVEL 1-3 OR FEVER; Start 04/12/19 at 13:00 Docusate Sodium (Colace) 100 mg Q12H PRN PO CONSTIPATION; Start 04/12/19 at 13:00 Magnesium Hydroxide (Milk Of Mag) 30 ml DAILY PRN PO CONSTIPATION; Start 04/12/19 at 13:00 Pantoprazole (Protonix Tab) 40 mg DAILY@06 PO Last administered on 04/14/19at 05:07; Admin Dose 40 MG; Start 04/13/19 at 06:00 Cefepime HCl 50 ml @ 100 mls/hr Q12 IVPB Last administered on 04/14/19 09:44; Admin Dose 100 MLS/HR; Start 04/12/19 at 21:00 Apixaban (Eliquis) 5 mg BID PO Last administered on 04/14/19 09:44; Admin Dose 5 MG; Start 04/12/19 at 21:00 Metoprolol Tartrate (Lopressor) 5 mg Q2H PRN IV heart rate over 110 Last administered on 04/14/19 02:13; Admin Dose 5 MG; Start 04/13/19 at 09:30 Sodium Bicarbonate 100 meq/Dextrose 1,000 ml @ 100 mls/hr Q10H IV Last administered on 04/14/19 05:07; Admin Dose 75 MLS/HR; Start 04/13/19 at 14:00 Morphine Sulfate (morphine) 2 mg Q4H PRN IV SEVERE PAIN LEVEL 7-10 Last administered on 04/13/19 23:20; Admin Dose 2 MG; Start 04/13/19 at 23:30 Dextrose (D50w Syringe) ONCE PRN IV DECREASED GLUCOSE Last administered on 04/14/19 06:51; Admin Dose 50 ML; Start 04/14/19 at 07:00; Stop 04/15/19 at 06:59 Albumin Human 100 ml @ 100 mls/hr Q8H IV Last administered on 04/14/19 11:48; Admin Dose 100 MLS/HR; Start 04/14/19 at 10:30; Stop 04/16/19 at 03:29 Bumetanide 12 mg/ Dextrose/Water 120 ml @ 10 mls/hr Q12H ONCE IV Last administered on 04/14/19 11:12; Admin Dose 10 MLS/HR; Start 04/14/19 at 11:30; Stop 04/14/19 at 23:29 Metoprolol Succinate (Toprol Xl) 100 mg DAILY PO ; Start 04/15/19 at 09:00 TISHA GO NP Apr 14, 2019 12:58
[2019-04-14] MEDS: morphine 2 MG INJ IV PRN (14:56)
[2019-04-14] MEDS ORDERED: LORAZEPAM 2 MG INJ IV PRN (15:00)
[2019-04-14] MEDS: ATORVASTATIN 20 MG TAB PO SCH (21:00)
[2019-04-14] MEDS ORDERED: PENDING SANTYL ORDER FOR WOUND CARE XX PRN (21:00)
[2019-04-15] VITALS (37 sets, daily range): BP systolic 78–134; BP diastolic 52–114; PULSE 87–131; RESP 12–28
[2019-04-15] MEDS: SODIUM BICARBONATE (IV ADD) 100 MEQ in DEXTROSE 5% 900 ML IV SCH (02:13)
[2019-04-15] MEDS: ALBUMIN HUMAN 25% 100 ML IV SCH ×3 (02:16→16:27)
[2019-04-15] MEDS: PANTOPRAZOLE (EC) 40 MG TAB PO SCH (05:47)
[2019-04-15] MEDS ORDERED: POTASSIUM CHLORIDE (SR) 10 MEQ TAB PO ONE (07:00)
[2019-04-15] MEDS: ASPIRIN (EC) 81 MG TAB PO SCH (08:28)
[2019-04-15] MEDS: CEFEPIME 1GM/50 ML (PMX) 50 ML IVPB SCH ×2 (08:28→21:16)
[2019-04-15] MEDS: APIXABAN 5 MG TABLET PO SCH ×2 (08:28→21:16)
[2019-04-15] MEDS: METOPROLOL (XL) 100 MG TAB PO SCH (08:31)
--- NOTE | 2019-04-15 08:37 | CONS ---
Assessment/Plan Assessment/Plan Assessment/Plan (Daily) 1. Oliguric Acute kidney injury on CKD 2/2 Hemodynamics from CHF and atrial fibrillation RVR , also contributing ATN from sepsis 2. acute hypoxic respiratory failure requiring BIPAP due to Bilateral PNA and CHF 3. sepsis due to Bilateral PNA 4. Acute CHF exacerbation with EF 20% on ECHO, most likely new onset since pt has been denying any H/o CHF 5. New onset afib with RVR- on cardizem gtt 6. H/o HTN 7. H/o Sleep apnea 8. H/o Possible CKD but pt has been denying it.. His Renal Us showed normal echogenicity of kidneys but kidneys are small in size, The right kidney measures 9.5 cm. The left kidney measures 9.2 cm. Plan: K 2.7, BUN/Cr 67/2.42, HCo3 39- s/p bumex gtt for 2 days, urine output 7 Liter in last 24 hr, will change it to bumex 1 mg PO BID - K replacement has been ordered. HCO3 39- will agressively replace electrolytes as needed. IV abx for sepsis and PNA, renally dose all abx , ID following Echo showed EF 20% wiht Moderate MR, moderate to severe TR, Enlarged RV and RVSP 52 rate control as per cardiology, on Eliquis 5 mg BID will follow up Consultation Date/Type/Reason Admit Date/Time Apr 12, 2019 at 12:21 Initial Consult Date 04/13/19 Type of Consult NEPHROLOGY Requesting Provider: MARVIN FOX MD Date/Time of Note DATE: 04/15/19 TIME: 08:36 24 HR Interval Summary Free Text/Dictation s/p bumex gtt for 2 days, K 2.7, hco3 39, urine output 7 Liter in last 24 hr, BP stable Exam/Review of Systems Exam Vitals Vital Signs Date Temp Pulse Resp B/P (MAP) Pulse Ox O2 O2 Flow FiO2 Time Delivery Rate 04/15/19 128 22 116/82 07:00 (93) 04/15/19 99 BIPAP 06:00 04/15/19 50 05:55 04/15/19 97.3 04:00 04/13/19 5.0 08:00 Intake and Output 04/14/19 04/14/19 04/15/19 1515:00 23:00 07:00 IntakeIntake Total 1055 ml 1150 ml 1050 ml OutputOutput Total 1650 ml 2530 ml 3950 ml BalanceBalance -595 ml -1380 ml -2900 ml Exam Constitutional: more alert communicative, off BIPAP Respiratory: congested cough, crackles/rales, diminished breath sounds Cardiovascular: regular rate and rhythm, nl pulses Gastrointestinal: soft, non-tender Musculoskeletal: muscle weakness, swelling (2-3+ pitting edema ) Extremities: normal pulses Neurological: alert awake, communicative, non focal Results Result Diagram: 04/15/19 0500 04/15/19 0500 Results 24hrs Laboratory Tests Test 04/14/19 09:34 04/14/19 10:50 04/14/19 21:00 04/15/19 05:00 Blood Gas Blood arterial Blood arterial Specimen Source Arterial Blood 04/14/2019 9:56: 04/14/2019 9:00: Date Drawn 01 AM 12 PM Arterial Blood 7.234 *L 7.422 pH (Temp corrected) Arterial Blood 41.4 41.7 pCO2 (Temp correct) Arterial Blood 69.6 L 97.9 pO2 (Temp corrected) Arterial Blood 17.1 L 26.6 H HCO3 Arterial Blood -9.9 L 1.9 Base Excess Arterial Blood 89.2 L 96.5 Oxygen Saturatio n Can Test ACCEPTAB ACCEPTAB Arterial Blood Left Radial Right Radial Gas Puncture Site Arterial 0.9 0.6 Blood Carboxyhem oglobin Arterial Blood 0.1 0.1 Methemoglobin Blood Gas A-a O2 160.8 H 139.3 H Differential Oxyhemoglobin 88.3 L 95.8 Percent Blood Gas 37.0 37.0 Temperature Blood Gas NASAL CANNULA MASK - BIPAP Modality FiO2 39.0 40.0 Blood Gas SANDIE GONZALES Critical Value Read Back Blood Gas TM MA Notified Whom Blood Gas 04/14/2019 10:15 04/14/2019 9:10: Notified Time :39 AM 52 PM Hepatitis B NEGATIVE Surface Antigen Hepatitis B Core REACTIVE H Total Antibody Hepatitis C NEGATIVE Antibody Blood Gas 18.0 Respiration Rate Blood Gas Actual 21 Respiration Rate Blood Gas 10 Pressure Support Blood Gas 15/5 IPAP/EPAP Ratio White Blood 11.8 #H Count Red Blood Count 4.30 L Hemoglobin 12.1 L Hematocrit 37.4 L Mean Corpuscular 87.0 Volume Mean Corpuscular 28.1 L Hemoglobin Mean Corpuscular 32.4 Hemoglobin Kristen nt Red Cell 15.2 H Distribution Width Platelet Count 137 #L Mean Platelet 10.2 Volume Immature 0.500 H Granulocytes % Neutrophils % 88.9 H Lymphocytes % 4.5 L Monocytes % 5.8 Eosinophils % 0.2 Basophils % 0.1 Nucleated Red 0.3 H Blood Cells % Immature 0.060 H Granulocytes # Neutrophils # 10.5 H Lymphocytes # 0.5 L Monocytes # 0.7 Eosinophils # 0.0 Basophils # 0.0 Nucleated Red 0.0 Blood Cells # Sodium Level 144 Potassium Level 2.7 #*L Chloride Level 93 #L Carbon Dioxide 39 #H Level Anion Gap 12 Blood Urea 67 H Nitrogen Creatinine 2.42 H Est Glomerular 27 L Filtrat Rate mL/min Glucose Level 136 Calcium Level 7.2 L Magnesium Level 2.1 Total Bilirubin 1.8 H Direct Bilirubin 0.00 Indirect 1.8 H Bilirubin Aspartate Amino 1424 H Transf (AST/SGOT ) Alanine 2206 H Aminotransferase (ALT/SGPT) Alkaline 66 Phosphatase Total Protein 6.5 Albumin 3.8 Globulin 2.70 Albumin/Globulin 1.40 Ratio Medications Medication Current Medications Aspirin (Halfprin) 81 mg DAILY PO Last administered on 04/15/19at 08:28; Admin Dose 81 MG; Start 04/13/19 at 09:00 Atorvastatin Calcium (Lipitor) 20 mg QHS PO Last administered on 04/13/19at 21:05; Admin Dose 20 MG; Start 04/12/19 at 21:00 Ondansetron HCl (Zofran Inj) 4 mg Q6H PRN IV NAUSEA AND/OR VOMITING; Start 04/12/19 at 13:00 Albuterol (Proventil 0.083% (Neb)) 2.5 mg Q2H RESP THERAPY PRN NEB SHORTNESS OF BREATH; Start 04/12/19 at 13:00 Acetaminophen (Tylenol Tab) 650 mg Q6H PRN PO PAIN LEVEL 1-3 OR FEVER; Start 04/12/19 at 13:00 Docusate Sodium (Colace) 100 mg Q12H PRN PO CONSTIPATION; Start 04/12/19 at 13:00 Magnesium Hydroxide (Milk Of Mag) 30 ml DAILY PRN PO CONSTIPATION; Start 04/12/19 at 13:00 Pantoprazole (Protonix Tab) 40 mg DAILY@06 PO Last administered on 04/15/19 05:47; Admin Dose 40 MG; Start 04/13/19 at 06:00 Cefepime HCl 50 ml @ 100 mls/hr Q12 IVPB Last administered on 04/15/19 08:28; Admin Dose 100 MLS/HR; Start 04/12/19 at 21:00 Apixaban (Eliquis) 5 mg BID PO Last administered on 04/15/19 08:28; Admin Dose 5 MG; Start 04/12/19 at 21:00 Metoprolol Tartrate (Lopressor) 5 mg Q2H PRN IV heart rate over 110 Last administered on 04/14/19 17:27; Admin Dose 5 MG; Start 04/13/19 at 09:30 Sodium Bicarbonate 100 meq/Dextrose 1,000 ml @ 100 mls/hr Q10H IV Last administered on 04/15/19 02:13; Admin Dose 100 MLS/HR; Start 04/13/19 at 14:00 Morphine Sulfate (morphine) 2 mg Q4H PRN IV SEVERE PAIN LEVEL 7-10 Last administered on 04/14/19 14:56; Admin Dose 2 MG; Start 04/13/19 at 23:30 Albumin Human 100 ml @ 100 mls/hr Q8H IV Last administered on 04/15/19 02:16; Admin Dose 100 MLS/HR; Start 04/14/19 at 10:30; Stop 04/16/19 at 03:29 Metoprolol Succinate (Toprol Xl) 100 mg DAILY PO Last administered on 04/15/19 08:31; Admin Dose 100 MG; Start 04/15/19 at 09:00 IV Flush (NS 10 ml) 10 ml Q8 PRN IV IV PROTOCOL; Start 04/14/19 at 15:00 Lorazepam (Ativan) 1 mg Q6H PRN IV anxiety; Start 04/14/19 at 15:00 Miscellaneous Information (Pending [facility] Order For Wound Care) This patient urias... PRN PRN XX WOUND CARE; Start 04/14/19 at 21:00 RYAN VICENTE MD Apr 15, 2019 08:37
--- NOTE | 2019-04-15 08:40 | CONS ---
Assessment/Plan Assessment/Plan Assessment/Plan (Daily) Chest x-ray showing cardiomegaly with mild pulmonary vascular congestion with small bilateral pleural effusions. Patient is currently on high flow nasal cannula at 20 L/min 50% FiO2. Assessment and recommendations; 1. Patient with history of cardiomyopathy admitted for CHF exacerbation with interval improvement. 2. Chronic renal insufficiency. With improving serum creatinine. 3. History of hypertension. 4. A. fib with RVR. Continue current supportive care. Management of cardiac arrhythmia per band director. Consider stopping antibiotics. Consultation Date/Type/Reason Admit Date/Time Apr 12, 2019 at 12:21 Initial Consult Date 04/13/19 Type of Consult Pulmonary/critical care Patient is a 63-year-old [place] gentleman who came into the hospital with history of shortness of breath for the last 1 day. Patient denied having any chest pain, any fever, wheezing or any sputum production. Upon evaluation patie nt was found to be in A. fib with RVR. Patient has been rate controlled. By the time I saw the patient in ICU, patient is sitting comfortably in bed and denied having any shortness of breath, rest pain, or any other symptoms. Past medical history; 1. History of apparent chronic renal insufficiency. 2. History of hypertension. Medications; reviewed. Allergies; none. Social history; patient never smoked. Occupational history; patient is retired. Family history; noncontributory. Review of systems; denies any headache, chest pain, shortness of breath has improved. Denies any coughing, wheezing, sputum production or fever. Denies any abdominal pain, nausea vomiting. Any orthopnea. General exam; elderly male, laying comfortably in bed. Currently in no distress. Requesting Provider: MARVIN FOX MD Date/Time of Note DATE: 04/15/19 TIME: 08:33 24 HR Interval Summary Free Text/Dictation Patient's condition is continually improving. Remains awake and alert. Has remained hemodynamically stable. But still in A. fib with RVR. General exam; elderly male, awake alert, currently in no distress. Having break fast. Exam/Review of Systems Exam Vitals Vital Signs Date Temp Pulse Resp B/P (MAP) Pulse Ox O2 O2 Flow FiO2 Time Delivery Rate 04/15/19 128 22 116/82 07:00 (93) 04/15/19 99 BIPAP 06:00 04/15/19 50 05:55 04/15/19 97.3 04:00 04/13/19 5.0 08:00 Intake and Output 04/14/19 04/14/19 04/15/19 1515:00 23:00 07:00 IntakeIntake Total 1055 ml 1150 ml 1050 ml OutputOutput Total 1650 ml 2530 ml 3950 ml BalanceBalance -595 ml -1380 ml -2900 ml Exam H EENT exam; supple neck, positive JVD. No lymphadenopathy. Midline trachea. No thyromegaly. Patient has fair dentition. No neck masses. Chest exam; diminished but clear breath sounds. S1-S2 audible, no murmurs. Irregular rhythm. Tachycardic. Abdomen exam; soft, mildly protuberant. Nontender. Bowel sounds audible. No organomegaly. Extremity exam; no peripheral edema. SHOE TURNER exam; no focal deficit. Results Result Diagram: 04/15/19 0500 04/15/19 0500 Results 24hrs Laboratory Tests Test 04/14/19 09:34 04/14/19 10:50 04/14/19 21:00 04/15/19 05:00 Blood Gas Blood arterial Blood arterial Specimen Source Arterial Blood 04/14/2019 9:56: 04/14/2019 9:00: Date Drawn 01 AM 12 PM Arterial Blood 7.234 *L 7.422 pH (Temp corrected) Arterial Blood 41.4 41.7 pCO2 (Temp correct) Arterial Blood 69.6 L 97.9 pO2 (Temp corrected) Arterial Blood 17.1 L 26.6 H HCO3 Arterial Blood -9.9 L 1.9 Base Excess Arterial Blood 89.2 L 96.5 Oxygen Saturatio n Can Test ACCEPTAB ACCEPTAB Arterial Blood Left Radial Right Radial Gas Puncture Site Arterial 0.9 0.6 Blood Carboxyhem oglobin Arterial Blood 0.1 0.1 Methemoglobin Blood Gas A-a O2 160.8 H 139.3 H Differential Oxyhemoglobin 88.3 L 95.8 Percent Blood Gas 37.0 37.0 Temperature Blood Gas NASAL CANNULA MASK - BIPAP Modality FiO2 39.0 40.0 Blood Gas SANDIE GONZALES Critical Value Read Back Blood Gas TM KATLIN Notified Whom Blood Gas 04/14/2019 10:15 04/14/2019 9:10: Notified Time :39 AM 52 PM Hepatitis B NEGATIVE Surface Antigen Hepatitis B Core REACTIVE H Total Antibody Hepatitis C NEGATIVE Antibody Blood Gas 18.0 Respiration Rate Blood Gas Actual 21 Respiration Rate Blood Gas 10 Pressure Support Blood Gas 15/5 IPAP/EPAP Ratio White Blood 11.8 #H Count Red Blood Count 4.30 L Hemoglobin 12.1 L Hematocrit 37.4 L Mean Corpuscular 87.0 Volume Mean Corpuscular 28.1 L Hemoglobin Mean Corpuscular 32.4 Hemoglobin Kristen nt Red Cell 15.2 H Distribution Width Platelet Count 137 #L Mean Platelet 10.2 Volume Immature 0.500 H Granulocytes % Neutrophils % 88.9 H Lymphocytes % 4.5 L Monocytes % 5.8 Eosinophils % 0.2 Basophils % 0.1 Nucleated Red 0.3 H Blood Cells % Immature 0.060 H Granulocytes # Neutrophils # 10.5 H Lymphocytes # 0.5 L Monocytes # 0.7 Eosinophils # 0.0 Basophils # 0.0 Nucleated Red 0.0 Blood Cells # Sodium Level 144 Potassium Level 2.7 #*L Chloride Level 93 #L Carbon Dioxide 39 #H Level Anion Gap 12 Blood Urea 67 H Nitrogen Creatinine 2.42 H Est Glomerular 27 L Filtrat Rate mL/min Glucose Level 136 Calcium Level 7.2 L Magnesium Level 2.1 Total Bilirubin 1.8 H Direct Bilirubin 0.00 Indirect 1.8 H Bilirubin Aspartate Amino 1424 H Transf (AST/SGOT ) Alanine 2206 H Aminotransferase (ALT/SGPT) Alkaline 66 Phosphatase Total Protein 6.5 Albumin 3.8 Globulin 2.70 Albumin/Globulin 1.40 Ratio Medications Medication Current Medications Aspirin (Halfprin) 81 mg DAILY PO Last administered on 04/15/19at 08:28; Admin Dose 81 MG; Start 04/13/19 at 09:00 Atorvastatin Calcium (Lipitor) 20 mg QHS PO Last administered on 04/13/19at 21:05; Admin Dose 20 MG; Start 04/12/19 at 21:00 Ondansetron HCl (Zofran Inj) 4 mg Q6H PRN IV NAUSEA AND/OR VOMITING; Start 04/12/19 at 13:00 Albuterol (Proventil 0.083% (Neb)) 2.5 mg Q2H RESP THERAPY PRN NEB SHORTNESS OF BREATH; Start 04/12/19 at 13:00 Acetaminophen (Tylenol Tab) 650 mg Q6H PRN PO PAIN LEVEL 1-3 OR FEVER; Start 04/12/19 at 13:00 Docusate Sodium (Colace) 100 mg Q12H PRN PO CONSTIPATION; Start 04/12/19 at 13:00 Magnesium Hydroxide (Milk Of Mag) 30 ml DAILY PRN PO CONSTIPATION; Start 04/12/19 at 13:00 Pantoprazole (Protonix Tab) 40 mg DAILY@06 PO Last administered on 04/15/19at 05:47; Admin Dose 40 MG; Start 04/13/19 at 06:00 Cefepime HCl 50 ml @ 100 mls/hr Q12 IVPB Last administered on 04/15/19 08:28; Admin Dose 100 MLS/HR; Start 04/12/19 at 21:00 Apixaban (Eliquis) 5 mg BID PO Last administered on 04/15/19at 08:28; Admin Dose 5 MG; Start 04/12/19 at 21:00 Metoprolol Tartrate (Lopressor) 5 mg Q2H PRN IV heart rate over 110 Last administered on 04/14/19at 17:27; Admin Dose 5 MG; Start 04/13/19 at 09:30 Sodium Bicarbonate 100 meq/Dextrose 1,000 ml @ 100 mls/hr Q10H IV Last administered on 04/15/19at 02:13; Admin Dose 100 MLS/HR; Start 04/13/19 at 14:00 Morphine Sulfate (morphine) 2 mg Q4H PRN IV SEVERE PAIN LEVEL 7-10 Last administered on 04/14/19at 14:56; Admin Dose 2 MG; Start 04/13/19 at 23:30 Albumin Human 100 ml @ 100 mls/hr Q8H IV Last administered on 04/15/19at 02:16; Admin Dose 100 MLS/HR; Start 04/14/19 at 10:30; Stop 04/16/19 at 03:29 Metoprolol Succinate (Toprol Xl) 100 mg DAILY PO Last administered on 04/15/19 08:31; Admin Dose 100 MG; Start 04/15/19 at 09:00 IV Flush (NS 10 ml) 10 ml Q8 PRN IV IV PROTOCOL; Start 04/14/19 at 15:00 Lorazepam (Ativan) 1 mg Q6H PRN IV anxiety; Start 04/14/19 at 15:00 Miscellaneous Information (Pending [facility] Order For Wound Care) This patient urias... PRN PRN XX WOUND CARE; Start 04/14/19 at 21:00 BONI BAER Apr 15, 2019 08:40
[2019-04-15] MEDS: METOPROLOL 5 MG INJ IV PRN (09:11)
--- NOTE | 2019-04-15 09:19 | CONS ---
Assessment/Plan Cardiology NYHA: IV Heart Failure Type: Acute Heart Failure Type: Both Assessment/Plan Hospital Course (Demo Recall) 63 yo with acute congestive heart failure, possible pneumonia, and rapid atrial fibrillation. Impression: Atrial fib, rapid, unclear duration Acute systolic and diastolic heart failure, unclear duration of cardiomyopathy, decompensated Possible pneumonia H/o hypertension Renal insufficiency, unclear if acute or chronic, with some improvement Hypokalemia Recommendations: Continue metoprolol succinate, will further uptitrate Add amiodarone bolus and drip May start amiodarone po tomorrow to continue to aid rate/rhythm control No diltiazem due to low EF, preferably no digoxin due to renal insufficiency Once clinically improved, would put him through a nuclear stress test to evaluate for extent of ischemia, and potential cath once renal function has stabilized Eliquis for CVA PX No TRACIE/ARB due to renal insufficiency Dr. Tsai to round this weekend Consultation Date/Type/Reason Admit Date/Time Apr 12, 2019 at 12:21 Initial Consult Date 04/13/19 Type of Consult Cardiology Requesting Provider: MARVIN FOX MD Date/Time of Note DATE: 04/15/19 TIME: 09:16 24 HR Interval Summary Free Text/Dictation More alert, breathing better, no pain. Exam/Review of Systems Vital Signs Vitals Vital Signs Date Temp Pulse Resp B/P (MAP) Pulse Ox O2 O2 Flow FiO2 Time Delivery Rate 04/15/19 98.3 120 18 118/83 High Flow 08:00 (95) 04/15/19 99 06:00 04/15/19 50 05:55 04/13/19 5.0 08:00 Intake and Output 04/14/19 04/14/19 04/15/19 1515:00 23:00 07:00 IntakeIntake Total 1055 ml 1150 ml 1050 ml OutputOutput Total 1650 ml 2530 ml 3950 ml BalanceBalance -595 ml -1380 ml -2900 ml Exam Constitutional: alert, oriented, well developed Psych: no complaints, anxiety Head: normocephalic, atraumatic Eyes: EOMI, nl lids ENMT: nl external ears & nose Neck: supple; No jvd, No bruits Respiratory: diminished breath sounds Cardiovascular: irregular rhythm; No jugular venous distention (JVD), No murmurs/extra sounds Gastrointestinal: soft, non-tender, distended Musculoskeletal: nl gait and stance Extremities: No edema Neurological: nl mental status, nl speech Skin: other (bullae on both legs) Labs Result Diagram: 04/15/19 0500 04/15/19 0500 Results 24hrs Laboratory Tests Test 04/14/19 09:34 04/14/19 10:50 04/14/19 21:00 04/15/19 05:00 Blood Gas Blood arterial Blood arterial Specimen Source Arterial Blood 04/14/2019 9:56: 04/14/2019 9:00: Date Drawn 01 AM 12 PM Arterial Blood 7.234 *L 7.422 pH (Temp corrected) Arterial Blood 41.4 41.7 pCO2 (Temp correct) Arterial Blood 69.6 L 97.9 pO2 (Temp corrected) Arterial Blood 17.1 L 26.6 H HCO3 Arterial Blood -9.9 L 1.9 Base Excess Arterial Blood 89.2 L 96.5 Oxygen Saturatio n Can Test ACCEPTAB ACCEPTAB Arterial Blood Left Radial Right Radial Gas Puncture Site Arterial 0.9 0.6 Blood Carboxyhem oglobin Arterial Blood 0.1 0.1 Methemoglobin Blood Gas A-a O2 160.8 H 139.3 H Differential Oxyhemoglobin 88.3 L 95.8 Percent Blood Gas 37.0 37.0 Temperature Blood Gas NASAL CANNULA MASK - BIPAP Modality FiO2 39.0 40.0 Blood Gas SANDIE GONZALES Critical Value Read Back Blood Gas TM KATLIN Notified Whom Blood Gas 04/14/2019 10:15 04/14/2019 9:10: Notified Time :39 AM 52 PM Hepatitis B NEGATIVE Surface Antigen Hepatitis B Core REACTIVE H Total Antibody Hepatitis C NEGATIVE Antibody Blood Gas 18.0 Respiration Rate Blood Gas Actual 21 Respiration Rate Blood Gas 10 Pressure Support Blood Gas 15/5 IPAP/EPAP Ratio White Blood 11.8 #H Count Red Blood Count 4.30 L Hemoglobin 12.1 L Hematocrit 37.4 L Mean Corpuscular 87.0 Volume Mean Corpuscular 28.1 L Hemoglobin Mean Corpuscular 32.4 Hemoglobin Kristen nt Red Cell 15.2 H Distribution Width Platelet Count 137 #L Mean Platelet 10.2 Volume Immature 0.500 H Granulocytes % Neutrophils % 88.9 H Lymphocytes % 4.5 L Monocytes % 5.8 Eosinophils % 0.2 Basophils % 0.1 Nucleated Red 0.3 H Blood Cells % Immature 0.060 H Granulocytes # Neutrophils # 10.5 H Lymphocytes # 0.5 L Monocytes # 0.7 Eosinophils # 0.0 Basophils # 0.0 Nucleated Red 0.0 Blood Cells # Sodium Level 144 Potassium Level 2.7 #*L Chloride Level 93 #L Carbon Dioxide 39 #H Level Anion Gap 12 Blood Urea 67 H Nitrogen Creatinine 2.42 H Est Glomerular 27 L Filtrat Rate mL/min Glucose Level 136 Calcium Level 7.2 L Magnesium Level 2.1 Total Bilirubin 1.8 H Direct Bilirubin 0.00 Indirect 1.8 H Bilirubin Aspartate Amino 1424 H Transf (AST/SGOT ) Alanine 2206 H Aminotransferase (ALT/SGPT) Alkaline 66 Phosphatase Total Protein 6.5 Albumin 3.8 Globulin 2.70 Albumin/Globulin 1.40 Ratio Imaging Imaging Telemetry shows rapid afib 130-140 bpm Medications Medications Current Medications Aspirin (Halfprin) 81 mg DAILY PO Last administered on 04/15/19at 08:28; Admin Dose 81 MG; Start 04/13/19 at 09:00 Atorvastatin Calcium (Lipitor) 20 mg QHS PO Last administered on 04/13/19at 21:05; Admin Dose 20 MG; Start 04/12/19 at 21:00 Ondansetron HCl (Zofran Inj) 4 mg Q6H PRN IV NAUSEA AND/OR VOMITING; Start 04/12/19 at 13:00 Albuterol (Proventil 0.083% (Neb)) 2.5 mg Q2H RESP THERAPY PRN NEB SHORTNESS OF BREATH; Start 04/12/19 at 13:00 Acetaminophen (Tylenol Tab) 650 mg Q6H PRN PO PAIN LEVEL 1-3 OR FEVER; Start 04/12/19 at 13:00 Docusate Sodium (Colace) 100 mg Q12H PRN PO CONSTIPATION; Start 04/12/19 at 13:00 Magnesium Hydroxide (Milk Of Mag) 30 ml DAILY PRN PO CONSTIPATION; Start 04/12/19 at 13:00 Pantoprazole (Protonix Tab) 40 mg DAILY@06 PO Last administered on 04/15/19at 05:47; Admin Dose 40 MG; Start 04/13/19 at 06:00 Cefepime HCl 50 ml @ 100 mls/hr Q12 IVPB Last administered on 04/15/19at 08:28; Admin Dose 100 MLS/HR; Start 04/12/19 at 21:00 Apixaban (Eliquis) 5 mg BID PO Last administered on 04/15/19at 08:28; Admin Dose 5 MG; Start 04/12/19 at 21:00 Metoprolol Tartrate (Lopressor) 5 mg Q2H PRN IV heart rate over 110 Last administered on 04/14/19at 17:27; Admin Dose 5 MG; Start 04/13/19 at 09:30 Sodium Bicarbonate 100 meq/Dextrose 1,000 ml @ 100 mls/hr Q10H IV Last administered on 04/15/19at 02:13; Admin Dose 100 MLS/HR; Start 04/13/19 at 14:00 Morphine Sulfate (morphine) 2 mg Q4H PRN IV SEVERE PAIN LEVEL 7-10 Last administered on 04/14/19at 14:56; Admin Dose 2 MG; Start 04/13/19 at 23:30 Albumin Human 100 ml @ 100 mls/hr Q8H IV Last administered on 04/15/19at 02:16; Admin Dose 100 MLS/HR; Start 04/14/19 at 10:30; Stop 04/16/19 at 03:29 Metoprolol Succinate (Toprol Xl) 100 mg DAILY PO Last administered on 04/15/19at 08:31; Admin Dose 100 MG; Start 04/15/19 at 09:00 IV Flush (NS 10 ml) 10 ml Q8 PRN IV IV PROTOCOL; Start 04/14/19 at 15:00 Lorazepam (Ativan) 1 mg Q6H PRN IV anxiety; Start 04/14/19 at 15:00 Miscellaneous Information (Pending [facility] Order For Wound Care) This patient urias... PRN PRN XX WOUND CARE; Start 04/14/19 at 21:00 Bumetanide (Bumex) 1 mg BID DIURETICS IV ; Start 04/15/19 at 09:00 Amiodarone HCl 100 ml @ 600 mls/hr ONCE ONCE IV ; Start 04/15/19 at 09:30; Stop 04/15/19 at 09:39; Status CATHERINE CHANDRA Apr 15, 2019 09:19
[2019-04-15] MEDS ORDERED: AMIODARONE 900 MG in DEXTROSE 5% 482 ML IV SCH (10:00)
[2019-04-15] MEDS ORDERED: AMIODARONE 150MG/D5W BOLUS 100 ML IV ONE ×2 (10:00)
[2019-04-15] MEDS: BUMETANIDE 1 MG INJ IV SCH ×2 (10:24→16:27)
--- NOTE | 2019-04-15 15:00 | PN ---
Date/Time of Note Date/Time of Note DATE: 04/15/19 TIME: 14:53 Assessment/Plan VTE Prophylaxis Risk score (from Nsg)>0 risk: 2 SCD applied (from Nsg): Yes Pharmacological prophylaxis: apixaban Lines/Catheters IV Catheter Type (from Nrsg): PICC Line Central line still needed: Yes Urinary Cath still in place: Yes Reason Cath still needed: urinary retention Assessment/Plan Assessment/Plan 1. Acute hypoxic respiratory failure- improving - patient is currently on high flow at 15L FiO2 45 and saturating in the low 90s. No respiratory distress noted - CXR this am noted - Pulm consultation appreciated. - Nebs PRN 2. Acute systolic congestive heart failure - Cardiology on board and appreciate recommendations - Nephrology on board for management of diuretics. Will continue on Bumex BID - Cardiology consultation appreciated - monitor I/O and daily weights - ECHO results noted with low EF 3. New onset afib with RVR - Cardiology consultation appreciated and started on Amiodarone drip. Will transition to PO tomorrow - Started on Eliquis 4. DANYA- improving - Nephrology consultation appreciated - most likely secondary to ATN in setting of afib with RVR, hypoxia, and cardiorenal - US results noted - will renally dose medications 5. Bilateral pneumonia - seen on CXR - ID consultation appreciated and managing antibiotics - continue Neb tx PRN 6. Elevated trop - most likely type 2 demand - will need stress test when stable and possible PCI in future when renal function improves - no chest pain noted 7. Elevated LFT- improving - Liver US noted - most likely due to congestion - no abdominal pain noted 8. Sleep apnea - on BIPAP 9. HTN - continue home medications and adjust as needed 10. Sepsis secondary to PNA- improving - lactic acid trending downward - IV antibiotics on board 11. Disposition - If HR remains less than 110, will downgrade to Telemetry for continued treatment >30 minutes of critical care time spent with patient Result Diagram: 04/15/19 0500 04/15/19 0500 Results 24hrs Laboratory Tests Test 04/14/19 21:00 04/15/19 05:00 Blood Gas Specimen Source Blood arterial Arterial Blood Date Drawn 04/14/2019 9:00:12 PM Arterial Blood pH (Temp corrected) 7.422 Arterial Blood pCO2 (Temp correct) 41.7 Arterial Blood pO2 (Temp corrected) 97.9 Arterial Blood HCO3 26.6 H Arterial Blood Base Excess 1.9 Arterial Blood Oxygen Saturation 96.5 Can Test ACCEPTAB Arterial Blood Gas Puncture Site Right Radial Arterial Blood Carboxyhemoglobin 0.6 Arterial Blood Methemoglobin 0.1 Blood Gas A-a O2 Differential 139.3 H Oxyhemoglobin Percent 95.8 Blood Gas Temperature 37.0 Blood Gas Respiration Rate 18.0 Blood Gas Actual Respiration Rate 21 Blood Gas Modality MASK - BIPAP FiO2 40.0 Blood Gas Pressure Support 10 Blood Gas IPAP/EPAP Ratio 15/5 Blood Gas Notified Whom MA Blood Gas Notified Time 04/14/2019 9:10:52 PM White Blood Count 11.8 #H Red Blood Count 4.30 L Hemoglobin 12.1 L Hematocrit 37.4 L Mean Corpuscular Volume 87.0 Mean Corpuscular Hemoglobin 28.1 L Mean Corpuscular Hemoglobin Concent 32.4 Red Cell Distribution Width 15.2 H Platelet Count 137 #L Mean Platelet Volume 10.2 Immature Granulocytes % 0.500 H Neutrophils % 88.9 H Lymphocytes % 4.5 L Monocytes % 5.8 Eosinophils % 0.2 Basophils % 0.1 Nucleated Red Blood Cells % 0.3 H Immature Granulocytes # 0.060 H Neutrophils # 10.5 H Lymphocytes # 0.5 L Monocytes # 0.7 Eosinophils # 0.0 Basophils # 0.0 Nucleated Red Blood Cells # 0.0 Sodium Level 144 Potassium Level 2.7 #*L Chloride Level 93 #L Carbon Dioxide Level 39 #H Anion Gap 12 Blood Urea Nitrogen 67 H Creatinine 2.42 H Est Glomerular Filtrat Rate mL/min 27 L Glucose Level 136 Calcium Level 7.2 L Magnesium Level 2.1 Total Bilirubin 1.8 H Direct Bilirubin 0.00 Indirect Bilirubin 1.8 H Aspartate Amino Transf (AST/SGOT) 1424 H Alanine Aminotransferase (ALT/SGPT) 2206 H Alkaline Phosphatase 66 Total Protein 6.5 Albumin 3.8 Globulin 2.70 Albumin/Globulin Ratio 1.40 Subjective 24 Hr Interval Summary Free Text/Dictation Patient states hes feeling better and shortness of breath has improved. Complaining of constipation and would like to try prune juice prior to laxatives. Exam/Review of Systems Exam Vitals Vital Signs Date Temp Pulse Resp B/P (MAP) Pulse Ox O2 O2 Flow FiO2 Time Delivery Rate 04/15/19 122 25 99/84 (89) 96 13:00 04/15/19 98.2 13:00 04/15/19 High Flow 08:00 04/15/19 50 05:55 04/13/19 5.0 08:00 Intake and Output 04/14/19 04/14/19 04/15/19 1515:00 23:00 07:00 IntakeIntake Total 1055 ml 1150 ml 1050 ml OutputOutput Total 1650 ml 2530 ml 3950 ml BalanceBalance -595 ml -1380 ml -2900 ml Exam General: no acute distress. answering questions appropriately Neck: Supple Chest: Nontender Lungs: Coarse breath sounds bilaterally. no wheezing appreciated Heart: Normal S1-S2, irregular rhythm, tachycardia Abdomen: Soft , nontender, nondistended , bowel sounds are present. No guarding no rebound tenderness Extremities: improved swelling of lower extremities bilaterally. skin: fluid filled blisters noted on shins bilaterally Results Results 24hrs Laboratory Tests Test 04/14/19 21:00 04/15/19 05:00 Blood Gas Specimen Source Blood arterial Arterial Blood Date Drawn 04/14/2019 9:00:12 PM Arterial Blood pH (Temp corrected) 7.422 Arterial Blood pCO2 (Temp correct) 41.7 Arterial Blood pO2 (Temp corrected) 97.9 Arterial Blood HCO3 26.6 H Arterial Blood Base Excess 1.9 Arterial Blood Oxygen Saturation 96.5 Can Test ACCEPTAB Arterial Blood Gas Puncture Site Right Radial Arterial Blood Carboxyhemoglobin 0.6 Arterial Blood Methemoglobin 0.1 Blood Gas A-a O2 Differential 139.3 H Oxyhemoglobin Percent 95.8 Blood Gas Temperature 37.0 Blood Gas Respiration Rate 18.0 Blood Gas Actual Respiration Rate 21 Blood Gas Modality MASK - BIPAP FiO2 40.0 Blood Gas Pressure Support 10 Blood Gas IPAP/EPAP Ratio 15/5 Blood Gas Notified Whom MA Blood Gas Notified Time 04/14/2019 9:10:52 PM White Blood Count 11.8 #H Red Blood Count 4.30 L Hemoglobin 12.1 L Hematocrit 37.4 L Mean Corpuscular Volume 87.0 Mean Corpuscular Hemoglobin 28.1 L Mean Corpuscular Hemoglobin Concent 32.4 Red Cell Distribution Width 15.2 H Platelet Count 137 #L Mean Platelet Volume 10.2 Immature Granulocytes % 0.500 H Neutrophils % 88.9 H Lymphocytes % 4.5 L Monocytes % 5.8 Eosinophils % 0.2 Basophils % 0.1 Nucleated Red Blood Cells % 0.3 H Immature Granulocytes # 0.060 H Neutrophils # 10.5 H Lymphocytes # 0.5 L Monocytes # 0.7 Eosinophils # 0.0 Basophils # 0.0 Nucleated Red Blood Cells # 0.0 Sodium Level 144 Potassium Level 2.7 #*L Chloride Level 93 #L Carbon Dioxide Level 39 #H Anion Gap 12 Blood Urea Nitrogen 67 H Creatinine 2.42 H Est Glomerular Filtrat Rate mL/min 27 L Glucose Level 136 Calcium Level 7.2 L Magnesium Level 2.1 Total Bilirubin 1.8 H Direct Bilirubin 0.00 Indirect Bilirubin 1.8 H Aspartate Amino Transf (AST/SGOT) 1424 H Alanine Aminotransferase (ALT/SGPT) 2206 H Alkaline Phosphatase 66 Total Protein 6.5 Albumin 3.8 Globulin 2.70 Albumin/Globulin Ratio 1.40 Medications Medication Current Medications Aspirin (Halfprin) 81 mg DAILY PO Last administered on 04/15/19at 08:28; Admin Dose 81 MG; Start 04/13/19 at 09:00 Atorvastatin Calcium (Lipitor) 20 mg QHS PO Last administered on 04/13/19at 21:05; Admin Dose 20 MG; Start 04/12/19 at 21:00 Ondansetron HCl (Zofran Inj) 4 mg Q6H PRN IV NAUSEA AND/OR VOMITING; Start 04/12/19 at 13:00 Albuterol (Proventil 0.083% (Neb)) 2.5 mg Q2H RESP THERAPY PRN NEB SHORTNESS OF BREATH; Start 04/12/19 at 13:00 Acetaminophen (Tylenol Tab) 650 mg Q6H PRN PO PAIN LEVEL 1-3 OR FEVER; Start 04/12/19 at 13:00 Docusate Sodium (Colace) 100 mg Q12H PRN PO CONSTIPATION; Start 04/12/19 at 13:00 Magnesium Hydroxide (Milk Of Mag) 30 ml DAILY PRN PO CONSTIPATION; Start 04/12/19 at 13:00 Pantoprazole (Protonix Tab) 40 mg DAILY@06 PO Last administered on 04/15/19at 05:47; Admin Dose 40 MG; Start 04/13/19 at 06:00 Cefepime HCl 50 ml @ 100 mls/hr Q12 IVPB Last administered on 04/15/19at 08:28; Admin Dose 100 MLS/HR; Start 04/12/19 at 21:00 Apixaban (Eliquis) 5 mg BID PO Last administered on 04/15/19 08:28; Admin Dose 5 MG; Start 04/12/19 at 21:00 Metoprolol Tartrate (Lopressor) 5 mg Q2H PRN IV heart rate over 110 Last administered on 04/15/19 09:11; Admin Dose 5 MG; Start 04/13/19 at 09:30 Morphine Sulfate (morphine) 2 mg Q4H PRN IV SEVERE PAIN LEVEL 7-10 Last administered on 04/14/19 14:56; Admin Dose 2 MG; Start 04/13/19 at 23:30 Albumin Human 100 ml @ 100 mls/hr Q8H IV Last administered on 04/15/19 11:15; Admin Dose 100 MLS/HR; Start 04/14/19 at 10:30; Stop 04/16/19 at 03:29 Metoprolol Succinate (Toprol Xl) 100 mg DAILY PO Last administered on 04/15/19 08:31; Admin Dose 100 MG; Start 04/15/19 at 09:00 IV Flush (NS 10 ml) 10 ml Q8 PRN IV IV PROTOCOL; Start 04/14/19 at 15:00 Lorazepam (Ativan) 1 mg Q6H PRN IV anxiety; Start 04/14/19 at 15:00 Miscellaneous Information ([facility] This patient urias. .. PRN PRN XX WOUND CARE; Start 04/14/19 at 21:00 Bumetanide (Bumex) 1 mg BID DIURETICS IV Last administered on 04/15/19 10:24; Admin Dose 1 MG; Start 04/15/19 at 09:00 Amiodarone HCl 900 mg/Dextrose 500 ml @ 0 mls/hr Q0M IV Last administered on 04/15/19 10:44; Admin Dose 33.3 MLS/HR; Start 04/15/19 at 10:00; Stop 04/16/19 at 09:59 MARVIN FOX MD Apr 15, 2019 15:00
--- NOTE | 2019-04-15 19:05 | PN ---
DATE: 04/15/2019 SUBJECTIVE: The patient developed rapid atrial fibrillation and started on amiodarone drip. He remains on high flow oxygen, in no distress and no fevers overnight. WBC today 11.8, platelets 137, neutrophils 88.9, BUN 67, creatinine 2.42. INDWELLINGS: He has Cárdenas catheter and PICC line. DIAGNOSTICS: Chest x-ray this morning revealed bilateral lung base consolidation with increased interstitial markings. ANTIMICROBIALS: The patient remains on cefepime day #4. PHYSICAL EXAMINATION: GENERAL: This is a chronically ill-appearing, elderly man who is in no distress. HEENT: Head atraumatic, normocephalic. NECK: Supple. CHEST: Rise symmetrical. Breath sounds diminished to bases. HEART: S1, S2, irregularly irregular. ABDOMEN: Soft, bowel sounds hypoactive. EXTREMITIES: With trace edema. ASSESSMENT: 1. Acute hypoxemic respiratory failure. 2. Congestive heart failure exacerbation, possible pneumonia. 3. Atrial fibrillation with rapid ventricular response. 4. Acute possibly on chronic kidney disease. 5. Non-ST elevation myocardial infarction. PLAN: The patient is being followed by multiple consultants. We will continue him on current antibiotics for now. Dictated By: TISHA GO [employer] F[employer]ER for LOREE MERRITT MD NI/NTS Conf#: [id number] DID#: [id number] CC: MARVIN FOX MD;*EndCC* MTDD
[2019-04-15] MEDS: ATORVASTATIN 20 MG TAB PO SCH (21:16)
[2019-04-15] MEDS ORDERED: NORepinephrine 8MG/250 ML (PMX 250 ML IV PRN (23:00)
[2019-04-16] VITALS (53 sets, daily range): BP systolic 80–121; BP diastolic 64–96; PULSE 79–124; RESP 11–28
[2019-04-16] MEDS: ALBUMIN HUMAN 25% 100 ML IV SCH (03:30)
[2019-04-16] MEDS: BUMETANIDE 1 MG INJ IV SCH (06:00)
[2019-04-16] MEDS: PANTOPRAZOLE (EC) 40 MG TAB PO SCH (06:02)
[2019-04-16] MEDS ORDERED: POTASSIUM CHLORIDE (SR) 20 MEQ TAB PO STA ×2 (06:56→09:07)
[2019-04-16] MEDS: APIXABAN 5 MG TABLET PO SCH ×2 (08:20→20:56)
[2019-04-16] MEDS: CEFEPIME 1GM/50 ML (PMX) 50 ML IVPB SCH (08:20)
[2019-04-16] MEDS: ASPIRIN (EC) 81 MG TAB PO SCH (08:21)
[2019-04-16] MEDS: METOPROLOL (XL) 100 MG TAB PO SCH (08:21)
[2019-04-16] MEDS ORDERED: POTASSIUM CHLORIDE 100 ML IVPB SCH (09:30)
--- NOTE | 2019-04-16 09:53 | PN ---
Date/Time of Note Date/Time of Note DATE: 04/16/19 TIME: 09:49 Assessment/Plan VTE Prophylaxis Risk score (from Nsg)>0 risk: 12 SCD applied (from Nsg): Yes Pharmacological prophylaxis: apixaban Lines/Catheters IV Catheter Type (from Nrsg): PICC Line Central line still needed: Yes Urinary Cath still in place: Yes Reason Cath still needed: other (indicate) (respiratory instability) Assessment/Plan Assessment/Plan 1. Acute hypoxic respiratory failure - Patient remains on high flow but had to put on BIPAP overnight due to con fusion. No respiratory distress noted. Currently at 20L with FIO2 45% - Pulm consultation appreciated. - Nebs PRN 2. Acute systolic congestive heart failure - Cardiology on board and appreciate recommendations - Nephrology on board for management of diuretics. Will continue on Bumex BID - monitor I/O and daily weights - ECHO results noted with low EF 3. New onset afib with RVR - on amiodarone drip and will transition to PO per Cardiology recommendations. Still with fluctuating HR - Cardiology consultation appreciated - Started on Eliquis 4. DANYA- improving - Nephrology consultation appreciated - most likely secondary to ATN in setting of afib with RVR, hypoxia, and cardiorenal - US results noted - will renally dose medications 5. Bilateral pneumonia - seen on CXR - ID consultation appreciated and managing antibiotics - continue Neb tx PRN 6. Elevated trop - most likely type 2 demand - will need stress test when stable and possible PCI in future when renal function improves - no chest pain noted 7. Elevated LFT- improving - Liver US noted - most likely due to congestion - no abdominal pain noted 8. Sleep apnea - on BIPAP 9. HTN - continue home medications and adjust as needed 10. Sepsis secondary to PNA- improving - WBC nl and remains afebrile - IV antibiotics on board 11. hypokalemia - replacing 12. Disposition - If HR remains less than 110, will downgrade to Telemetry for continued treatment >30 minutes of critical care time spent with patient Result Diagram: 04/16/19 0423 04/16/19 0423 Results 24hrs Laboratory Tests Test 04/15/19 15:12 04/16/19 04:23 Sodium Level 139 140 Potassium Level 3.5 3.1 L Chloride Level 89 L 88 L Carbon Dioxide Level 39 H 39 H Anion Gap 11 13 Blood Urea Nitrogen 68 H 69 H Creatinine 2.15 H 2.32 H Est Glomerular Filtrat Rate mL/min 31 L 29 L Glucose Level 127 105 Calcium Level 7.6 L 7.7 L Total Bilirubin 1.9 H 1.6 H Direct Bilirubin 0.00 0.00 Indirect Bilirubin 1.9 H 1.6 H Aspartate Amino Transf (AST/SGOT) 1126 H 678 H Alanine Aminotransferase (ALT/SGPT) 2010 H 1493 H Alkaline Phosphatase 73 70 Total Protein 6.9 6.8 Albumin 4.1 4.1 Globulin 2.80 2.70 Albumin/Globulin Ratio 1.46 1.51 White Blood Count 9.8 Red Blood Count 4.13 L Hemoglobin 11.7 L Hematocrit 36.3 L Mean Corpuscular Volume 87.9 Mean Corpuscular Hemoglobin 28.3 L Mean Corpuscular Hemoglobin Concent 32.2 Red Cell Distribution Width 15.4 H Platelet Count 128 L Mean Platelet Volume 10.3 Immature Granulocytes % 0.400 Neutrophils % 82.4 H Lymphocytes % 8.7 L Monocytes % 7.9 Eosinophils % 0.4 Basophils % 0.2 Nucleated Red Blood Cells % 0.6 H Immature Granulocytes # 0.040 H Neutrophils # 8.1 H Lymphocytes # 0.9 Monocytes # 0.8 Eosinophils # 0.0 Basophils # 0.0 Nucleated Red Blood Cells # 0.1 H Magnesium Level 2.2 Subjective 24 Hr Interval Summary Free Text/Dictation Patient states hes feeling better and denies any acute issues. Having difficulty resting while in the ICU> Exam/Review of Systems Exam Vitals Vital Signs Date Temp Pulse Resp B/P (MAP) Pulse Ox O2 O2 Flow FiO2 Time Delivery Rate 04/16/19 121 17 106/83 98 09:30 (91) 04/16/19 High Flow 09:00 04/16/19 45 08:15 04/16/19 99.7 08:00 04/15/19 20.0 22:00 Intake and Output 04/15/19 04/15/19 04/16/19 1515:00 23:00 07:00 IntakeIntake Total 100 ml 333.5 ml 216.9 ml OutputOutput Total 2760 ml 490 ml 390 ml BalanceBalance -2660 ml -156.5 ml -173.1 ml Exam General: no acute distress. answering questions appropriately Neck: Supple Lungs: Coarse breath sounds bilaterally. no wheezing appreciated Heart: Normal S1-S2, irregular rhythm, tachycardia Abdomen: Soft , nontender, nondistended , bowel sounds are present. No guarding no rebound tenderness Extremities:trace LE edema bilaterally. no cyanosis or clubbing skin: fluid filled blisters noted on shins bilaterally Results Results 24hrs Laboratory Tests Test 04/15/19 15:12 04/16/19 04:23 Sodium Level 139 140 Potassium Level 3.5 3.1 L Chloride Level 89 L 88 L Carbon Dioxide Level 39 H 39 H Anion Gap 11 13 Blood Urea Nitrogen 68 H 69 H Creatinine 2.15 H 2.32 H Est Glomerular Filtrat Rate mL/min 31 L 29 L Glucose Level 127 105 Calcium Level 7.6 L 7.7 L Total Bilirubin 1.9 H 1.6 H Direct Bilirubin 0.00 0.00 Indirect Bilirubin 1.9 H 1.6 H Aspartate Amino Transf (AST/SGOT) 1126 H 678 H Alanine Aminotransferase (ALT/SGPT) 2010 H 1493 H Alkaline Phosphatase 73 70 Total Protein 6.9 6.8 Albumin 4.1 4.1 Globulin 2.80 2.70 Albumin/Globulin Ratio 1.46 1.51 White Blood Count 9.8 Red Blood Count 4.13 L Hemoglobin 11.7 L Hematocrit 36.3 L Mean Corpuscular Volume 87.9 Mean Corpuscular Hemoglobin 28.3 L Mean Corpuscular Hemoglobin Concent 32.2 Red Cell Distribution Width 15.4 H Platelet Count 128 L Mean Platelet Volume 10.3 Immature Granulocytes % 0.400 Neutrophils % 82.4 H Lymphocytes % 8.7 L Monocytes % 7.9 Eosinophils % 0.4 Basophils % 0.2 Nucleated Red Blood Cells % 0.6 H Immature Granulocytes # 0.040 H Neutrophils # 8.1 H Lymphocytes # 0.9 Monocytes # 0.8 Eosinophils # 0.0 Basophils # 0.0 Nucleated Red Blood Cells # 0.1 H Magnesium Level 2.2 Medications Medication Current Medications Aspirin (Halfprin) 81 mg DAILY PO Last administered on 04/16/19at 08:21; Admin Dose 81 MG; Start 04/13/19 at 09:00 Atorvastatin Calcium (Lipitor) 20 mg QHS PO Last administered on 04/15/19at 21:16; Admin Dose 20 MG; Start 04/12/19 at 21:00 Ondansetron HCl (Zofran Inj) 4 mg Q6H PRN IV NAUSEA AND/OR VOMITING Last administered on 04/15/19 16:27; Admin Dose 4 MG; Start 04/12/19 at 13:00 Albuterol (Proventil 0.083% (Neb)) 2.5 mg Q2H RESP THERAPY PRN NEB SHORTNESS OF BREATH; Start 04/12/19 at 13:00 Acetaminophen (Tylenol Tab) 650 mg Q6H PRN PO PAIN LEVEL 1-3 OR FEVER; Start 04/12/19 at 13:00 Docusate Sodium (Colace) 100 mg Q12H PRN PO CONSTIPATION; Start 04/12/19 at 13:00 Magnesium Hydroxide (Milk Of Mag) 30 ml DAILY PRN PO CONSTIPATION; Start 04/12/19 at 13:00 Pantoprazole (Protonix Tab) 40 mg DAILY@06 PO Last administered on 04/16/19at 06:02; Admin Dose 40 MG; Start 04/13/19 at 06:00 Cefepime HCl 50 ml @ 100 mls/hr Q12 IVPB Last administered on 04/16/19at 08:20; Admin Dose 100 MLS/HR; Start 04/12/19 at 21:00 Apixaban (Eliquis) 5 mg BID PO Last administered on 04/16/19 08:20; Admin Dose 5 MG; Start 04/12/19 at 21:00 Metoprolol Tartrate (Lopressor) 5 mg Q2H PRN IV heart rate over 110 Last administered on 04/15/19at 09:11; Admin Dose 5 MG; Start 04/13/19 at 09:30 Morphine Sulfate (morphine) 2 mg Q4H PRN IV SEVERE PAIN LEVEL 7-10 Last administered on 04/14/19at 14:56; Admin Dose 2 MG; Start 04/13/19 at 23:30 Metoprolol Succinate (Toprol Xl) 100 mg DAILY PO Last administered on 04/16/19 08:21; Admin Dose 100 MG; Start 04/15/19 at 09:00 IV Flush (NS 10 ml) 10 ml Q8 PRN IV IV PROTOCOL; Start 04/14/19 at 15:00 Lorazepam (Ativan) 1 mg Q6H PRN IV anxiety; Start 04/14/19 at 15:00 Miscellaneous Information (Pending [facility] Order For Wound Care) This patient urias... PRN PRN XX WOUND CARE; Start 04/14/19 at 21:00 Bumetanide (Bumex) 1 mg BID DIURETICS IV Last administered on 04/15/19at 10:24; Admin Dose 1 MG; Start 04/15/19 at 09:00 Amiodarone HCl 900 mg/Dextrose 500 ml @ 0 mls/hr Q0M IV Last administered on 04/15/19at 10:44; Admin Dose 33.3 MLS/HR; Start 04/15/19 at 10:00; Stop 04/16/19 at 09:59 Norepinephrine 250 ml @ 1.875 mls/ hr TITRATE PRN IV BLOOD PRESSURE SUPPORT; Start 04/15/19 at 23:00 MARVIN FOX MD Apr 16, 2019 09:53
--- NOTE | 2019-04-16 11:55 | CONS ---
Consult Date/Type/Reason Admit Date/Time Apr 12, 2019 at 12:21 Initial Consult Date 04/13/19 Type of Consultation: Pulm/CCM Requesting Provider: MARVIN FOX MD Date/Time of Note DATE: 04/16/19 TIME: 11:49 Subjective No events. On high flow oxygen. Feels better. Objective Vitals Vital Signs Date Temp Pulse Resp B/P (MAP) Pulse Ox O2 O2 Flow FiO2 Time Delivery Rate 04/16/19 117 19 89/70 (76) 97 11:30 04/16/19 45 11:20 04/16/19 High Flow 11:00 04/16/19 99.7 08:00 04/15/19 20.0 22:00 Intake and Output 04/15/19 04/15/19 04/16/19 1515:00 23:00 07:00 IntakeIntake Total 100 ml 333.5 ml 233.6 ml OutputOutput Total 2760 ml 490 ml 590 ml BalanceBalance -2660 ml -156.5 ml -356.4 ml Exam HEENT: Neck supple; no JVD; no LAD CVS: tachy irreg irreg S1 and S2 CHEST: Clear anteriorly ABD: Soft, NT, + BS EXT: No c/c/e Results/Medications Result Diagram: 04/16/19 0423 04/16/19 0423 Results 24 hrs Laboratory Tests Test 04/15/19 15:12 04/16/19 04:23 Sodium Level 139 140 Potassium Level 3.5 3.1 L Chloride Level 89 L 88 L Carbon Dioxide Level 39 H 39 H Anion Gap 11 13 Blood Urea Nitrogen 68 H 69 H Creatinine 2.15 H 2.32 H Est Glomerular Filtrat Rate mL/min 31 L 29 L Glucose Level 127 105 Calcium Level 7.6 L 7.7 L Total Bilirubin 1.9 H 1.6 H Direct Bilirubin 0.00 0.00 Indirect Bilirubin 1.9 H 1.6 H Aspartate Amino Transf (AST/SGOT) 1126 H 678 H Alanine Aminotransferase (ALT/SGPT) 2010 H 1493 H Alkaline Phosphatase 73 70 Total Protein 6.9 6.8 Albumin 4.1 4.1 Globulin 2.80 2.70 Albumin/Globulin Ratio 1.46 1.51 White Blood Count 9.8 Red Blood Count 4.13 L Hemoglobin 11.7 L Hematocrit 36.3 L Mean Corpuscular Volume 87.9 Mean Corpuscular Hemoglobin 28.3 L Mean Corpuscular Hemoglobin Concent 32.2 Red Cell Distribution Width 15.4 H Platelet Count 128 L Mean Platelet Volume 10.3 Immature Granulocytes % 0.400 Neutrophils % 82.4 H Lymphocytes % 8.7 L Monocytes % 7.9 Eosinophils % 0.4 Basophils % 0.2 Nucleated Red Blood Cells % 0.6 H Immature Granulocytes # 0.040 H Neutrophils # 8.1 H Lymphocytes # 0.9 Monocytes # 0.8 Eosinophils # 0.0 Basophils # 0.0 Nucleated Red Blood Cells # 0.1 H Magnesium Level 2.2 Home Meds Reported Medications Aspirin* (Aspirin* EC) 81 Mg Tablet.dr, 81 MG PO DAILY, TAB 04/12/19 Atorvastatin Calcium* (Atorvastatin Calcium*) 20 Mg Tablet, 20 MG PO QHS, #30 TAB 04/12/19 Losartan Potassium* (Losartan Potassium*) 100 Mg Tablet, 100 MG PO DAILY, TAB 04/12/19 Amlodipine Besylate* (Amlodipine Besylate*) 10 Mg Tablet, 10 MG PO DAILY, #30 TAB 04/12/19 Discontinued Reported Medications Losartan Potassium* (Losartan Potassium*) 100 Mg Tablet, 100 MG PO DAILY, TAB 11/09/17 Amlodipine Besylate* (Amlodipine Besylate*) 10 Mg Tablet, 10 MG PO DAILY, #30 TAB 11/09/17 Hydrochlorothiazide* (Hydrochlorothiazide*) 12.5 Mg Tablet, 12.5 MG PO DAILY, #30 TAB 11/09/17 Atorvastatin Calcium* (Atorvastatin Calcium*) 20 Mg Tablet, 20 MG PO QHS, #30 TAB 11/09/17 Medications Current Medications Aspirin (Halfprin) 81 mg DAILY PO Last administered on 04/16/19at 08:21; Admin Dose 81 MG; Start 04/13/19 at 09:00 Atorvastatin Calcium (Lipitor) 20 mg QHS PO Last administered on 04/15/19at 21:16; Admin Dose 20 MG; Start 04/12/19 at 21:00 Ondansetron HCl (Zofran Inj) 4 mg Q6H PRN IV NAUSEA AND/OR VOMITING Last administered on 04/15/19at 16:27; Admin Dose 4 MG; Start 04/12/19 at 13:00 Albuterol (Proventil 0.083% (Neb)) 2.5 mg Q2H RESP THERAPY PRN NEB SHORTNESS OF BREATH; Start 04/12/19 at 13:00 Acetaminophen (Tylenol Tab) 650 mg Q6H PRN PO PAIN LEVEL 1-3 OR FEVER; Start 04/12/19 at 13:00 Docusate Sodium (Colace) 100 mg Q12H PRN PO CONSTIPATION; Start 04/12/19 at 13:00 Magnesium Hydroxide (Milk Of Mag) 30 ml DAILY PRN PO CONSTIPATION; Start 04/12/19 at 13:00 Pantoprazole (Protonix Tab) 40 mg DAILY@06 PO Last administered on 04/16/19 06:02; Admin Dose 40 MG; Start 04/13/19 at 06:00 Cefepime HCl 50 ml @ 100 mls/hr Q12 IVPB Last administered on 04/16/19 08:20; Admin Dose 100 MLS/HR; Start 04/12/19 at 21:00 Apixaban (Eliquis) 5 mg BID PO Last administered on 04/16/19 08:20; Admin Dose 5 MG; Start 04/12/19 at 21:00 Metoprolol Tartrate (Lopressor) 5 mg Q2H PRN IV heart rate over 110 Last administered on 04/15/19at 09:11; Admin Dose 5 MG; Start 04/13/19 at 09:30 Morphine Sulfate (morphine) 2 mg Q4H PRN IV SEVERE PAIN LEVEL 7-10 Last administered on 04/14/19at 14:56; Admin Dose 2 MG; Start 04/13/19 at 23:30 Metoprolol Succinate (Toprol Xl) 100 mg DAILY PO Last administered on 04/16/19 08:21; Admin Dose 100 MG; Start 04/15/19 at 09:00 IV Flush (NS 10 ml) 10 ml Q8 PRN IV IV PROTOCOL; Start 04/14/19 at 15:00 Lorazepam (Ativan) 1 mg Q6H PRN IV anxiety; Start 04/14/19 at 15:00 Miscellaneous Information (Pending [facility] Order For Wound Care) This patient urias... PRN PRN XX WOUND CARE; Start 04/14/19 at 21:00 Bumetanide (Bumex) 1 mg BID DIURETICS IV Last administered on 04/15/19at 10:24; Admin Dose 1 MG; Start 04/15/19 at 09:00 Norepinephrine 250 ml @ 1.875 mls/ hr TITRATE PRN IV BLOOD PRESSURE SUPPORT; Start 04/15/19 at 23:00 Amiodarone HCl (Cordarone) 400 mg TID PO ; Start 04/16/19 at 13:00 Assessment/Plan Assessment/Plan (Daily) IMP: 1. ADHF 2. HFrEF 3. ARF--likely cardiorenal 4. Afib with RVR 5. Ischemic Hepatopathy 2/2 #1 6. Hypoxemic Resp Failure 2/2 #1 RECS: 1. Continue diuresis until creatine bumps 2. Amiodarone PO 3. De-escalate abx 4. Titrate FiO2 5. Mobilize OOB 35 min cc time ANITA CLEVELAND MD Apr 16, 2019 11:55
--- NOTE | 2019-04-16 12:30 | PN ---
DATE: 04/16/2019 SUBJECTIVE: The patient is alert, feels better, looks comfortable, still on amiodarone drip, heart r ate controlled. INDWELLINGS: The patient has a PICC line and a Cárdenas catheter. MICROBIOLOGY: All cultures negative. VITAL SIGNS: WBC 9.8, platelets 128, neutrophils 82.4, BUN 69, creatinine 2.32. PHYSICAL EXAMINATION: GENERAL: This is a well-developed, elderly man who is awake, in no distress. HEENT: Head atraumatic, normocephalic. NECK: Supple. CHEST: Rise symmetrical. Breath sounds diminished at the bases. HEART: S1, S2. ABDOMEN: Soft. Bowel tones present. EXTREMITIES: Without cyanosis. ASSESSMENT: 1. Acute hypoxemic respiratory failure secondary to congestive heart failure exacerbation. 2. Atrial fibrillation with rapid ventricular response, currently controlled on amiodarone drip. 3. Dpf-[id number] myocardial infarction. 4. Acute possibly on chronic kidney disease. 5. Ischemic cardiomyopathy. PLAN: The patient remains stable. We will discontinue antibiotics and monitor him, reculture p.r.n. Dictated By: TISHA GO MANAGER AUDIO for LOREE MERRITT MD NI/NTS Conf#: [id number] DID#: [id number] CC: MARVIN FOX MD;*EndCC*
[2019-04-16] MEDS: AMIODARONE 200 MG TAB PO SCH ×2 (13:11→20:56)
--- NOTE | 2019-04-16 14:13 | CONS ---
Consult Date/Type/Reason Admit Date/Time Apr 12, 2019 at 12:21 Initial Consult Date 04/13/19 Type of Consultation: Pulm/CCM Requesting Provider: MARVIN FOX MD Date/Time of Note DATE: 04/16/19 TIME: 14:10 Subjective Interventional cardiology follow-up progress Subjective: Discussed with the staff and telemetry was reviewed. Patient has remained in atrial fibrillation previously with rapid ventricular response Blood pressure has been borderline low. No chest pain or pressure but does have severe shortness of breath. Patient is in ICU Objective: General: This gentleman. HEENT: NC/AT. pupils are equal. round. NECK: no stridor. CV: Irregularly irregular systolic murmur; no gallop or rubs. PULM: no wheezing + diffuse rhonchi. GI: SOFT, NT, ND, no rebound or guarding Extremity: + B/L LE edema. no clubbing. neuro: awake and alert, Psych: calm and pleasant rectal: deferred Echo has shown ejection fraction of 20% Objective Vitals Vital Signs Date Temp Pulse Resp B/P (MAP) Pulse Ox O2 O2 Flow FiO2 Time Delivery Rate 04/16/19 118 13 101/84 95 High Flow 13:00 (90) 04/16/19 98.9 12:00 04/16/19 45 11:20 04/15/19 20.0 22:00 Intake and Output 04/15/19 04/15/19 04/16/19 1515:00 23:00 07:00 IntakeIntake Total 100 ml 333.5 ml 233.6 ml OutputOutput Total 2760 ml 490 ml 590 ml BalanceBalance -2660 ml -156.5 ml -356.4 ml Results/Medications Result Diagram: 04/16/19 0423 04/16/19 0423 Results 24 hrs Laboratory Tests Test 04/15/19 15:12 04/16/19 04:23 Sodium Level 139 140 Potassium Level 3.5 3.1 L Chloride Level 89 L 88 L Carbon Dioxide Level 39 H 39 H Anion Gap 11 13 Blood Urea Nitrogen 68 H 69 H Creatinine 2.15 H 2.32 H Est Glomerular Filtrat Rate mL/min 31 L 29 L Glucose Level 127 105 Calcium Level 7.6 L 7.7 L Total Bilirubin 1.9 H 1.6 H Direct Bilirubin 0.00 0.00 Indirect Bilirubin 1.9 H 1.6 H Aspartate Amino Transf (AST/SGOT) 1126 H 678 H Alanine Aminotransferase (ALT/SGPT) 2010 H 1493 H Alkaline Phosphatase 73 70 Total Protein 6.9 6.8 Albumin 4.1 4.1 Globulin 2.80 2.70 Albumin/Globulin Ratio 1.46 1.51 White Blood Count 9.8 Red Blood Count 4.13 L Hemoglobin 11.7 L Hematocrit 36.3 L Mean Corpuscular Volume 87.9 Mean Corpuscular Hemoglobin 28.3 L Mean Corpuscular Hemoglobin Concent 32.2 Red Cell Distribution Width 15.4 H Platelet Count 128 L Mean Platelet Volume 10.3 Immature Granulocytes % 0.400 Neutrophils % 82.4 H Lymphocytes % 8.7 L Monocytes % 7.9 Eosinophils % 0.4 Basophils % 0.2 Nucleated Red Blood Cells % 0.6 H Immature Granulocytes # 0.040 H Neutrophils # 8.1 H Lymphocytes # 0.9 Monocytes # 0.8 Eosinophils # 0.0 Basophils # 0.0 Nucleated Red Blood Cells # 0.1 H Magnesium Level 2.2 Home Meds Reported Medications Aspirin* (Aspirin* EC) 81 Mg Tablet.dr, 81 MG PO DAILY, TAB 04/12/19 Atorvastatin Calcium* (Atorvastatin Calcium*) 20 Mg Tablet, 20 MG PO QHS, #30 TAB 04/12/19 Losartan Potassium* (Losartan Potassium*) 100 Mg Tablet, 100 MG PO DAILY, TAB 04/12/19 Amlodipine Besylate* (Amlodipine Besylate*) 10 Mg Tablet, 10 MG PO DAILY, #30 TAB 04/12/19 Discontinued Reported Medications Losartan Potassium* (Losartan Potassium*) 100 Mg Tablet, 100 MG PO DAILY, TAB 11/09/17 Amlodipine Besylate* (Amlodipine Besylate*) 10 Mg Tablet, 10 MG PO DAILY, #30 TAB 11/09/17 Hydrochlorothiazide* (Hydrochlorothiazide*) 12.5 Mg Tablet, 12.5 MG PO DAILY, #30 TAB 11/09/17 Atorvastatin Calcium* (Atorvastatin Calcium*) 20 Mg Tablet, 20 MG PO QHS, #30 TAB 11/09/17 Medications Current Medications Aspirin (Halfprin) 81 mg DAILY PO Last administered on 04/16/19at 08:21; Admin Dose 81 MG; Start 04/13/19 at 09:00 Atorvastatin Calcium (Lipitor) 20 mg QHS PO Last administered on 04/15/19 21:16; Admin Dose 20 MG; Start 04/12/19 at 21:00 Ondansetron HCl (Zofran Inj) 4 mg Q6H PRN IV NAUSEA AND/OR VOMITING Last administered on 04/15/19 16:27; Admin Dose 4 MG; Start 04/12/19 at 13:00 Albuterol (Proventil 0.083% (Neb)) 2.5 mg Q2H RESP THERAPY PRN NEB SHORTNESS OF BREATH; Start 04/12/19 at 13:00 Acetaminophen (Tylenol Tab) 650 mg Q6H PRN PO PAIN LEVEL 1-3 OR FEVER; Start 04/12/19 at 13:00 Docusate Sodium (Colace) 100 mg Q12H PRN PO CONSTIPATION; Start 04/12/19 at 13:00 Magnesium Hydroxide (Milk Of Mag) 30 ml DAILY PRN PO CONSTIPATION; Start 04/12/19 at 13:00 Pantoprazole (Protonix Tab) 40 mg DAILY@06 PO Last administered on 04/16/19at 06:02; Admin Dose 40 MG; Start 04/13/19 at 06:00 Apixaban (Eliquis) 5 mg BID PO Last administered on 04/16/19 08:20; Admin Dose 5 MG; Start 04/12/19 at 21:00 Metoprolol Tartrate (Lopressor) 5 mg Q2H PRN IV heart rate over 110 Last administered on 04/15/19at 09:11; Admin Dose 5 MG; Start 04/13/19 at 09:30 Morphine Sulfate (morphine) 2 mg Q4H PRN IV SEVERE PAIN LEVEL 7-10 Last administered on 04/14/19at 14:56; Admin Dose 2 MG; Start 04/13/19 at 23:30 Metoprolol Succinate (Toprol Xl) 100 mg DAILY PO Last administered on 04/16/19 08:21; Admin Dose 100 MG; Start 04/15/19 at 09:00 IV Flush (NS 10 ml) 10 ml Q8 PRN IV IV PROTOCOL; Start 04/14/19 at 15:00 Lorazepam (Ativan) 1 mg Q6H PRN IV anxiety; Start 04/14/19 at 15:00 [facility]isc[facility] This patient urias... PRN PRN XX WOUND CARE; Start 04/14/19 at 21:00 Bumetanide (Bumex) 1 mg BID DIURETICS IV Last administered on 04/15/19at 10:24; Admin Dose 1 MG; Start 04/15/19 at 09:00 Norepinephrine 250 ml @ 1.875 mls/ hr TITRATE PRN IV BLOOD PRESSURE SUPPORT; Start 04/15/19 at 23:00 Amiodarone HCl (Cordarone) 400 mg TID PO Last administered on 04/16/19at 13:11; Admin Dose 400 MG; Start 04/16/19 at 13:00 Assessment/Plan Hospital Course (Demo Recall) 1. Congestive heart failure 2. Severe cardiomyopathy 3. Atrial fibrillation with ventricular response 4. Possible pneumonia 5. Renal failure 6. History of hypertension 7. Electrolytes abnormality/ hypokalemia Recommendation: Potassium has been replaced. We will continue closely monitor in ICU for now I will change her Toprol to 50 twice daily to be able to control it better We will give a dose of digoxin IV and check additional level tomorrow morning to avoid this toxicity Patient is on p.o. amiodarone for now we will continue for the time being Thank you for his referral. We will continue to follow along with you until Dr. Costello returns on Thursday FELTON GIVENS MD [facility] FELTON GIVENS MD Apr 16, 2019 14:13
[2019-04-16] MEDS ORDERED: DIGOXIN 500 MCG INJ IV ONE (14:30)
--- NOTE | 2019-04-16 14:57 | CONS ---
Assessment/Plan Assessment/Plan Assessment/Plan (Daily) - Hypokalemia - K replaced, fu am BMP 1. Oliguric Acute kidney injury on CKD 2/2 Hemodynamics from CHF and atrial fibrillation RVR , also contributing ATN from sepsis 2. acute hypoxic respiratory failure requiring BIPAP due to Bilateral PNA and CHF 3. sepsis due to Bilateral PNA 4. Acute CHF exacerbation with EF 20% on ECHO, most likely new onset since pt has been denying any H/o CHF 5. New onset afib with RVR- on cardizem gtt 6. H/o HTN 7. H/o Sleep apnea 8. H/o Possible CKD but pt has been denying it.. His Renal Us showed normal echogenicity of kidneys but kidneys are small in size, The right kidney measures 9.5 cm. The left kidney measures 9.2 cm. Plan: - K 3.1- K replaced - BUN/Cr trended up to 69/2.32- will change Bumex 1 mg PO BID to Daily; s/p Bumex gtt for 2 days - HCO3 39- will aggressively replace electrolytes as needed. - urine output 4 Liter in last 24 hr IV abx for sepsis and PNA, renally dose all abx , ID following Echo showed EF 20% wiht Moderate MR, moderate to severe TR, Enlarged RV and RVSP 52 Heart rate -110, control as per cardiology, on Eliquis 5 mg BID Total critical care time spent 40 mins. Will follow up. Patient seen in collaboration with Dr Delaney Perales. Plan of care dw staff. Consultation Date/Type/Reason Admit Date/Time Apr 12, 2019 at 12:21 Initial Consult Date 04/13/19 Type of Consult NEPHROLOGY Reason for Consultation Oliguric Acute kidney injury Requesting Provider: MARVIN FOX MD Date/Time of Note DATE: 04/16/19 TIME: 14:39 24 HR Interval Summary Free Text/Dictation Nad afebrile seems comfortable on supplement oxygen alert/responsive patient remained in atrial fibrillation previously with rapid ventricular response Cr trended up today to 2.32; will change Bumex from BID to Daily UO- 4L /24hrs feels better today dw staff Constitutional: requiring IVF, requiring O2 Detailed Summary Eyes: no complaints ENT: no complaints Respiratory: no complaints Cardiovascular: no complaints Gastrointestinal: no complaints Genitourinary: no complaints Musculoskeletal: other (generelized weakness) Skin: no complaints Neurologic: no complaints Endocrine: no complaints Psychological: nl mood/affect Immunologic: no complaints Exam/Review of Systems Exam Vitals Vital Signs Date Temp Pulse Resp B/P (MAP) Pulse Ox O2 O2 Flow FiO2 Time Delivery Rate 04/16/19 118 13 101/84 95 High Flow 13:00 (90) 04/16/19 98.9 12:00 04/16/19 45 11:20 04/15/19 20.0 22:00 Intake and Output 04/15/19 04/15/19 04/16/19 1515:00 23:00 07:00 IntakeIntake Total 100 ml 333.5 ml 233.6 ml OutputOutput Total 2760 ml 490 ml 590 ml BalanceBalance -2660 ml -156.5 ml -356.4 ml Constitutional: alert, well developed Psych: nl mood/affect Head: normocephalic Eyes: nl lids, nl sclera, PERRL ENMT: nl external ears & nose Neck: non-tender Respiratory: clear to auscultation Cardiovascular: nl pulses, other (s1s2) Gastrointestinal: soft, non-tender Musculoskeletal: nl extremities to inspection Extremities: normal pulses Neurological: nl speech, other (alert) Skin: other (no rash noted) Results Result Diagram: 04/16/193 04/16/19 0423 Results 24hrs Laboratory Tests Test 04/15/19 15:12 04/16/19 04:23 Sodium Level 139 140 Potassium Level 3.5 3.1 L Chloride Level 89 L 88 L Carbon Dioxide Level 39 H 39 H Anion Gap 11 13 Blood Urea Nitrogen 68 H 69 H Creatinine 2.15 H 2.32 H Est Glomerular Filtrat Rate mL/min 31 L 29 L Glucose Level 127 105 Calcium Level 7.6 L 7.7 L Total Bilirubin 1.9 H 1.6 H Direct Bilirubin 0.00 0.00 Indirect Bilirubin 1.9 H 1.6 H Aspartate Amino Transf (AST/SGOT) 1126 H 678 H Alanine Aminotransferase (ALT/SGPT) 2010 H 1493 H Alkaline Phosphatase 73 70 Total Protein 6.9 6.8 Albumin 4.1 4.1 Globulin 2.80 2.70 Albumin/Globulin Ratio 1.46 1.51 White Blood Count 9.8 Red Blood Count 4.13 L Hemoglobin 11.7 L Hematocrit 36.3 L Mean Corpuscular Volume 87.9 Mean Corpuscular Hemoglobin 28.3 L Mean Corpuscular Hemoglobin Concent 32.2 Red Cell Distribution Width 15.4 H Platelet Count 128 L Mean Platelet Volume 10.3 Immature Granulocytes % 0.400 Neutrophils % 82.4 H Lymphocytes % 8.7 L Monocytes % 7.9 Eosinophils % 0.4 Basophils % 0.2 Nucleated Red Blood Cells % 0.6 H Immature Granulocytes # 0.040 H Neutrophils # 8.1 H Lymphocytes # 0.9 Monocytes # 0.8 Eosinophils # 0.0 Basophils # 0.0 Nucleated Red Blood Cells # 0.1 H Magnesium Level 2.2 Medications Medication Current Medications Aspirin (Halfprin) 81 mg DAILY PO Last administered on 04/16/19 08:21; Admin Dose 81 MG; Start 04/13/19 at 09:00 Atorvastatin Calcium (Lipitor) 20 mg QHS PO Last administered on 04/15/19at 21:16; Admin Dose 20 MG; Start 04/12/19 at 21:00 Ondansetron HCl (Zofran Inj) 4 mg Q6H PRN IV NAUSEA AND/OR VOMITING Last admin istered on 04/15/19at 16:27; Admin Dose 4 MG; Start 04/12/19 at 13:00 Albuterol (Proventil 0.083% (Neb)) 2.5 mg Q2H RESP THERAPY PRN NEB SHORTNESS OF BREATH; Start 04/12/19 at 13:00 Acetaminophen (Tylenol Tab) 650 mg Q6H PRN PO PAIN LEVEL 1-3 OR FEVER; Start 04/12/19 at 13:00 Docusate Sodium (Colace) 100 mg Q12H PRN PO CONSTIPATION; Start 04/12/19 at 13:00 Magnesium Hydroxide (Milk Of Mag) 30 ml DAILY PRN PO CONSTIPATION; Start 04/12/19 at 13:00 Pantoprazole (Protonix Tab) 40 mg DAILY@06 PO Last administered on 04/16/19at 06:02; Admin Dose 40 MG; Start 04/13/19 at 06:00 Apixaban (Eliquis) 5 mg BID PO Last administered on 04/16/19 08:20; Admin Dose 5 MG; Start 04/12/19 at 21:00 Metoprolol Tartrate (Lopressor) 5 mg Q2H PRN IV heart rate over 110 Last administered on 04/15/19at 09:11; Admin Dose 5 MG; Start 04/13/19 at 09:30 Morphine Sulfate (morphine) 2 mg Q4H PRN IV SEVERE PAIN LEVEL 7-10 Last administered on 04/14/19at 14:56; Admin Dose 2 MG; Start 04/13/19 at 23:30 IV Flush (NS 10 ml) 10 ml Q8 PRN IV IV PROTOCOL; Start 04/14/19 at 15:00 Lorazepam (Ativan) 1 mg Q6H PRN IV anxiety; Start 04/14/19 at 15:00 Miscellaneous Information (Pending [facility] Order For Wound Care) This patient urias... PRN PRN XX WOUND CARE; Start 04/14/19 at 21:00 Bumetanide (Bumex) 1 mg BID DIURETICS IV Last administered on 04/15/19at 10:24; Admin Dose 1 MG; Start 04/15/19 at 09:00 Norepinephrine 250 ml @ 1.875 mls/ hr TITRATE PRN IV BLOOD PRESSURE SUPPORT; Start 04/15/19 at 23:00 Amiodarone HCl (Cordarone) 400 mg TID PO Last administered on 04/16/19at 13:11; Admin Dose 400 MG; Start 04/16/19 at 13:00 Metoprolol Succinate (Toprol Xl) 50 mg BID PO ; Start 04/16/19 at 21:00 ABRAHAM LEYVA Apr 16, 2019 14:49
[2019-04-16] MEDS: METOPROLOL (XL) 50 MG TAB PO SCH (20:55)
[2019-04-16] MEDS: ATORVASTATIN 20 MG TAB PO SCH (20:56)
[2019-04-17] VITALS (31 sets, daily range): BP systolic 75–141; BP diastolic 51–93; PULSE 56–89; RESP 12–28
[2019-04-17] MEDS: PANTOPRAZOLE (EC) 40 MG TAB PO SCH (06:19)
--- NOTE | 2019-04-17 08:06 | PN ---
Date/Time of Note Date/Time of Note DATE: 04/17/19 TIME: 08:06 Assessment/Plan VTE Prophylaxis Risk score (from Nsg)>0 risk: 10 SCD applied (from Ns): No SCD contraindicated: other Pharmacological prophylaxis: apixaban Lines/Catheters IV Catheter Type (from Nrsg): PICC Line Central line still needed: Yes Urinary Cath still in place: Yes Reason Cath still needed: terminal illness/intractable pain Assessment/Plan Assessment/Plan 1. Acute hypoxic respiratory failure- stable - patient is doing well on high flow this am. Currently on 30L at 45%. If setting okay for telemetry will downgrade - Pulm consultation appreciated. - Nebs PRN 2. Acute systolic congestive heart failure- improving - BNP noted - Cardiology on board and appreciate recommendations - Nephrology on board for management of diuretics. Will continue on Bumex BID - monitor I/O and daily weights - ECHO results noted with low EF 3. New onset afib with RVR- improving - patient now rate controlled after given digoxin - continue on PO amiodarone - Cardiology consultation appreciated - On Eliquis 4. DANYA- improving - Nephrology consultation appreciated - most likely secondary to ATN in setting of afib with RVR, hypoxia, and cardiorenal - US results noted - will renally dose medications 5. Bilateral pneumonia - seen on CXR - ID consultation appreciated and d/c antibiotics yesterday. will monitor off antibiotics - continue Neb tx PRN 6. Elevated trop - most likely type 2 demand - will need stress test when stable and possible PCI in future when renal function improves - no chest pain noted 7. Elevated LFT- improving - Liver US noted - most likely due to congestion - no abdominal pain noted 8. Sleep apnea - on BIPAP qhs 9. HTN - continue home medications and adjust as needed 10. Sepsis secondary to PNA- improving - WBC nl and remains afebrile 11. Disposition - Patient HR remains stable and will downgrade to Telemetry >30 minutes of critical care time spent with patient Result Diagram: 04/17/19 0400 04/17/19 0400 Results 24hrs Laboratory Tests Test 04/17/19 04:00 04/17/19 05:00 White Blood Count 9.8 Red Blood Count 4.22 L Hemoglobin 11.9 L Hematocrit 37.5 L Mean Corpuscular Volume 88.9 Mean Corpuscular Hemoglobin 28.2 L Mean Corpuscular Hemoglobin Concent 31.7 L Red Cell Distribution Width 15.7 H Platelet Count 142 Mean Platelet Volume 10.4 Immature Granulocytes % 0.400 Neutrophils % 79.5 H Lymphocytes % 8.4 L Monocytes % 10.6 Eosinophils % 0.9 Basophils % 0.2 Nucleated Red Blood Cells % 0.6 H Immature Granulocytes # 0.040 H Neutrophils # 7.8 H Lymphocytes # 0.8 Monocytes # 1.0 H Eosinophils # 0.1 Basophils # 0.0 Nucleated Red Blood Cells # 0.1 H Sodium Level 139 Potassium Level 3.8 Chloride Level 91 L Carbon Dioxide Level 39 H Anion Gap 9 Blood Urea Nitrogen 61 H Creatinine 1.75 H Est Glomerular Filtrat Rate mL/min 40 L Glucose Level 108 Lactic Acid Level 1.2 Calcium Level 8.2 L Magnesium Level 2.4 Total Bilirubin 1.6 H Direct Bilirubin 0.00 Indirect Bilirubin 1.6 H Aspartate Amino Transf (AST/SGOT) 379 H Alanine Aminotransferase (ALT/SGPT) 1156 H Alkaline Phosphatase 85 B-Type Natriuretic Peptide 3470 H Total Protein 6.5 Albumin 3.9 Globulin 2.60 Albumin/Globulin Ratio 1.50 Digoxin Level 0.5 L Blood Gas Specimen Source Blood arterial Arterial Blood Date Drawn 04/17/2019 4:30:47 AM Arterial Blood pH (Temp corrected) 7.431 Arterial Blood pCO2 (Temp correct) 50.1 H Arterial Blood pO2 (Temp corrected) 90.5 Arterial Blood HCO3 32.6 H Arterial Blood Base Excess 7.0 H Arterial Blood Oxygen Saturation 95.9 Can Test ACCEPTAB Arterial Blood Gas Puncture Site Left Radial Arterial Blood Carboxyhemoglobin 0.7 Arterial Blood Methemoglobin 0.1 Blood Gas A-a O2 Differential 137.1 H Oxyhemoglobin Percent 95.1 Blood Gas Temperature 37.0 Blood Gas Respiration Rate 18.0 Blood Gas Actual Respiration Rate 24 Blood Gas Modality MASK - BIPAP FiO2 40.0 Blood Gas Pressure Support 10 Blood Gas IPAP/EPAP Ratio 15/5 Blood Gas Notified Whom MA Blood Gas Notified Time 04/17/2019 4:56:40 AM Subjective 24 Hr Interval Summary Free Text/Dictation Patient still with some shortness of breath but denies any other issues. Per nursing, patient was not on the proper setting on high flow and was hypoxic this am. Exam/Review of Systems Exam Vitals Vital Signs Date Temp Pulse Resp B/P (MAP) Pulse Ox O2 O2 Flow FiO2 Time Delivery Rate 04/17/19 77 16 100/78 99 06:30 (85) 04/17/19 BIPAP 06:00 04/17/19 40 05:10 04/17/19 99.6 04:00 04/15/19 20.0 22:00 Intake and Output 04/16/19 04/16/19 04/17/19 1515:00 23:00 07:00 IntakeIntake Total 946.8 ml 840 ml 350 ml OutputOutput Total 775 ml 440 ml 400 ml BalanceBalance 171.8 ml 400 ml -50 ml Exam General: no acute distress. answering questions appropriately Neck: Supple Lungs: Diminished breath sounds bilaterally. no wheezing appreciated Heart: Normal S1-S2, irregular rhythm, regular rate Abdomen: Soft , nontender, nondistended , bowel sounds are present. No guarding no rebound tenderness Extremities: no edema, cyanosis or clubbing skin: fluid filled blisters noted on shins bilaterally Results Results 24hrs Laboratory Tests Test 04/17/19 04:00 04/17/19 05:00 White Blood Count 9.8 Red Blood Count 4.22 L Hemoglobin 11.9 L Hematocrit 37.5 L Mean Corpuscular Volume 88.9 Mean Corpuscular Hemoglobin 28.2 L Mean Corpuscular Hemoglobin Concent 31.7 L Red Cell Distribution Width 15.7 H Platelet Count 142 Mean Platelet Volume 10.4 Immature Granulocytes % 0.400 Neutrophils % 79.5 H Lymphocytes % 8.4 L Monocytes % 10.6 Eosinophils % 0.9 Basophils % 0.2 Nucleated Red Blood Cells % 0.6 H Immature Granulocytes # 0.040 H Neutrophils # 7.8 H Lymphocytes # 0.8 Monocytes # 1.0 H Eosinophils # 0.1 Basophils # 0.0 Nucleated Red Blood Cells # 0.1 H Sodium Level 139 Potassium Level 3.8 Chloride Level 91 L Carbon Dioxide Level 39 H Anion Gap 9 Blood Urea Nitrogen 61 H Creatinine 1.75 H Est Glomerular Filtrat Rate mL/min 40 L Glucose Level 108 Lactic Acid Level 1.2 Calcium Level 8.2 L Magnesium Level 2.4 Total Bilirubin 1.6 H Direct Bilirubin 0.00 Indirect Bilirubin 1.6 H Aspartate Amino Transf (AST/SGOT) 379 H Alanine Aminotransferase (ALT/SGPT) 1156 H Alkaline Phosphatase 85 B-Type Natriuretic Peptide 3470 H Total Protein 6.5 Albumin 3.9 Globulin 2.60 Albumin/Globulin Ratio 1.50 Digoxin Level 0.5 L Blood Gas Specimen Source Blood arterial Arterial Blood Date Drawn 04/17/2019 4:30:47 AM Arterial Blood pH (Temp corrected) 7.431 Arterial Blood pCO2 (Temp correct) 50.1 H Arterial Blood pO2 (Temp corrected) 90.5 Arterial Blood HCO3 32.6 H Arterial Blood Base Excess 7.0 H Arterial Blood Oxygen Saturation 95.9 Can Test ACCEPTAB Arterial Blood Gas Puncture Site Left Radial Arterial Blood Carboxyhemoglobin 0.7 Arterial Blood Methemoglobin 0.1 Blood Gas A-a O2 Differential 137.1 H Oxyhemoglobin Percent 95.1 Blood Gas Temperature 37.0 Blood Gas Respiration Rate 18.0 Blood Gas Actual Respiration Rate 24 Blood Gas Modality MASK - BIPAP FiO2 40.0 Blood Gas Pressure Support 10 Blood Gas IPAP/EPAP Ratio 15/5 Blood Gas Notified Whom MA Blood Gas Notified Time 04/17/2019 4:56:40 AM Medications Medication Current Medications Aspirin (Halfprin) 81 mg DAILY PO Last administered on 04/16/19at 08:21; Admin Dose 81 MG; Start 04/13/19 at 09:00 Atorvastatin Calcium (Lipitor) 20 mg QHS PO Last administered on 04/16/19at 20:56; Admin Dose 20 MG; Start 04/12/19 at 21:00 Ondansetron HCl (Zofran Inj) 4 mg Q6H PRN IV NAUSEA AND/OR VOMITING Last administered on 04/15/19at 16:27; Admin Dose 4 MG; Start 04/12/19 at 13:00 Albuterol (Proventil 0.083% (Neb)) 2.5 mg Q2H RESP THERAPY PRN NEB SHORTNESS OF BREATH; Start 04/12/19 at 13:00 Acetaminophen (Tylenol Tab) 650 mg Q6H PRN PO PAIN LEVEL 1-3 OR FEVER; Start 04/12/19 at 13:00 Docusate Sodium (Colace) 100 mg Q12H PRN PO CONSTIPATION; Start 04/12/19 at 13:00 Magnesium Hydroxide (Milk Of Mag) 30 ml DAILY PRN PO CONSTIPATION; Start 04/12/19 at 13:00 Pantoprazole (Protonix Tab) 40 mg DAILY@06 PO Last administered on 04/17/19 06:19; Admin Dose 40 MG; Start 04/13/19 at 06:00 Apixaban (Eliquis) 5 mg BID PO Last administered on 04/16/19 20:56; Admin Dose 5 MG; Start 04/12/19 at 21:00 Metoprolol Tartrate (Lopressor) 5 mg Q2H PRN IV heart rate over 110 Last administered on 04/15/19 09:11; Admin Dose 5 MG; Start 04/13/19 at 09:30 Morphine Sulfate (morphine) 2 mg Q4H PRN IV SEVERE PAIN LEVEL 7-10 Last administered on 04/14/19 14:56; Admin Dose 2 MG; Start 04/13/19 at 23:30 IV Flush (NS 10 ml) 10 ml Q8 PRN IV IV PROTOCOL; Start 04/14/19 at 15:00 Lorazepam (Ativan) 1 mg Q6H PRN IV anxiety; Start 04/14/19 at 15:00 Miscellaneous Information (Pending [facility] Order For Wound Care) This patient urias ... PRN PRN XX WOUND CARE; Start 04/14/19 at 21:00 Norepinephrine 250 ml @ 1.875 mls/ hr TITRATE PRN IV BLOOD PRESSURE SUPPORT; Start 04/15/19 at 23:00 Amiodarone HCl (Cordarone) 400 mg TID PO Last administered on 04/16/19 20:56; Admin Dose 400 MG; Start 04/16/19 at 13:00 Metoprolol Succinate (Toprol Xl) 50 mg BID PO Last administered on 04/16/19 20:55; Admin Dose 50 MG; Start 04/16/19 at 21:00 Bumetanide (Bumex) 1 mg DAILY IV ; Start 04/17/19 at 09:00 MARVIN FOX MD Apr 17, 2019 08:06
[2019-04-17] MEDS: AMIODARONE 200 MG TAB PO SCH ×2 (09:04→13:10)
[2019-04-17] MEDS: APIXABAN 5 MG TABLET PO SCH ×2 (09:04→20:18)
[2019-04-17] MEDS: BUMETANIDE 1 MG INJ IV SCH (09:05)
[2019-04-17] MEDS: ASPIRIN (EC) 81 MG TAB PO SCH (09:05)
[2019-04-17] MEDS: METOPROLOL (XL) 50 MG TAB PO SCH ×2 (09:05→20:18)
--- NOTE | 2019-04-17 09:52 | CONS ---
Assessment/Plan Assessment/Plan Assessment/Plan (Daily) - Hypokalemia- resolved 1. Oliguric Acute kidney injury on CKD 2/2 Hemodynamics from CHF and atrial fibrillation RVR , also contributing ATN from sepsis 2. acute hypoxic respiratory failure requiring BIPAP due to Bilateral PNA and CHF 3. sepsis due to Bilateral PNA 4. Acute CHF exacerbation with EF 20% on ECHO, most likely new onset since pt has been denying any H/o CHF 5. New onset afib with RVR- on cardizem gtt 6. H/o HTN 7. H/o Sleep apnea 8. H/o Possible CKD but pt has been denying it.. His Renal Us showed normal echogenicity of kidneys but kidneys are small in size, The right kidney measures 9.5 cm. The left kidney measures 9.2 cm. Plan: - K - wnl -BUN/Cr trended down to 61/1.75 today ; cont Bumex po Daily; s/p Bumex gtt for 2 days - UO- 1.8 L /24hrs - HCO3 39- will aggressively replace electrolytes as needed. - urine output 4 Liter in last 24 hr IV abx for sepsis and PNA, renally dose all abx , ID following Echo showed EF 20% wiht Moderate MR, moderate to severe TR, Enlarged RV and RVSP 52 Heart rate -110, control as per cardiology, on Eliquis 5 mg BID Total critical care time spent 40 mins. Will follow up. Patient seen in collaboration with Dr Delaney Perales. Plan of care dw staff. Consultation Date/Type/Reason Admit Date/Time Apr 12, 2019 at 12:21 Initial Consult Date 04/13/19 Type of Consult NEPHRO Reason for Consultation DANYA ON CKD Requesting Provider: MARVIN FOX MD Date/Time of Note DATE: 04/17/19 TIME: 09:46 24 HR Interval Summary Free Text/Dictation Nad alert/responsive; afebrile; seems comfortable on supplement oxygen ;sitting up in bed; feels better today Hypokalemia- resolved patient remained in atrial fibrillation previously with rapid ventricular r esponse Cr trended down to 61/1.75 today ; cont Bumex po Daily UO- 1.8 L /24hrs possible transfer to tele no new events last night dw staff Constitutional: improved, requiring O2 Exam/Review of Systems Exam Vitals Vital Signs Date Temp Pulse Resp B/P (MAP) Pulse Ox O2 O2 Flow FiO2 Time Delivery Rate 04/17/19 81 26 104/91 94 09:30 (95) 04/17/19 High Flow 09:00 04/17/19 97.9 08:00 04/17/19 40 05:10 04/15/19 20.0 22:00 Intake and Output 04/16/19 04/16/19 04/17/19 1414:59 22:59 06:59 IntakeIntake Total 963.5 ml 840 ml 350 ml OutputOutput Total 925 ml 440 ml 450 ml BalanceBalance 38.5 ml 400 ml -100 ml Constitutional: alert Results Result Diagram: 04/17/19 0400 04/17/19 0400 Results 24hrs Laboratory Tests Test 04/17/19 04:00 04/17/19 05:00 White Blood Count 9.8 Red Blood Count 4.22 L Hemoglobin 11.9 L Hematocrit 37.5 L Mean Corpuscular Volume 88.9 Mean Corpuscular Hemoglobin 28.2 L Mean Corpuscular Hemoglobin Concent 31.7 L Red Cell Distribution Width 15.7 H Platelet Count 142 Mean Platelet Volume 10.4 Immature Granulocytes % 0.400 Neutrophils % 79.5 H Lymphocytes % 8.4 L Monocytes % 10.6 Eosinophils % 0.9 Basophils % 0.2 Nucleated Red Blood Cells % 0.6 H Immature Granulocytes # 0.040 H Neutrophils # 7.8 H Lymphocytes # 0.8 Monocytes # 1.0 H Eosinophils # 0.1 Basophils # 0.0 Nucleated Red Blood Cells # 0.1 H Sodium Level 139 Potassium Level 3.8 Chloride Level 91 L Carbon Dioxide Level 39 H Anion Gap 9 Blood Urea Nitrogen 61 H Creatinine 1.75 H Est Glomerular Filtrat Rate mL/min 40 L Glucose Level 108 Lactic Acid Level 1.2 Calcium Level 8.2 L Magnesium Level 2.4 Total Bilirubin 1.6 H Direct Bilirubin 0.00 Indirect Bilirubin 1.6 H Aspartate Amino Transf (AST/SGOT) 379 H Alanine Aminotransferase (ALT/SGPT) 1156 H Alkaline Phosphatase 85 B-Type Natriuretic Peptide 3470 H Total Protein 6.5 Albumin 3.9 Globulin 2.60 Albumin/Globulin Ratio 1.50 Digoxin Level 0.5 L Blood Gas Specimen Source Blood arterial Arterial Blood Date Drawn 04/17/2019 4:30:47 AM Arterial Blood pH (Temp corrected) 7.431 Arterial Blood pCO2 (Temp correct) 50.1 H Arterial Blood pO2 (Temp corrected) 90.5 Arterial Blood HCO3 32.6 H Arterial Blood Base Excess 7.0 H Arterial Blood Oxygen Saturation 95.9 Can Test ACCEPTAB Arterial Blood Gas Puncture Site Left Radial Arterial Blood Carboxyhemoglobin 0.7 Arterial Blood Methemoglobin 0.1 Blood Gas A-a O2 Differential 137.1 H Oxyhemoglobin Percent 95.1 Blood Gas Temperature 37.0 Blood Gas Respiration Rate 18.0 Blood Gas Actual Respiration Rate 24 Blood Gas Modality MASK - BIPAP FiO2 40.0 Blood Gas Pressure Support 10 Blood Gas IPAP/EPAP Ratio 15/ Blood Gas Notified Whom MA Blood Gas Notified Time 04/17/2019 4:56:40 AM Medications Medication Current Medications Aspirin (Halfprin) 81 mg DAILY PO Last administered on 04/17/19 09:05; Admin Dose 81 MG; Start 04/13/19 at 09:00 Atorvastatin Calcium (Lipitor) 20 mg QHS PO Last administered on 04/16/19at 20:56; Admin Dose 20 MG; Start 04/12/19 at 21:00 Ondansetron HCl (Zofran Inj) 4 mg Q6H PRN IV NAUSEA AND/OR VOMITING Last administered on 04/15/19 16:27; Admin Dose 4 MG; Start 04/12/19 at 13:00 Albuterol (Proventil 0.083% (Neb)) 2.5 mg Q2H RESP THERAPY PRN NEB SHORTNESS OF BREATH; Start 04/12/19 at 13:00 Acetaminophen (Tylenol Tab) 650 mg Q6H PRN PO PAIN LEVEL 1-3 OR FEVER; Start 04/12/19 at 13:00 Docusate Sodium (Colace) 100 mg Q12H PRN PO CONSTIPATION; Start 04/12/19 at 13:00 Magnesium Hydroxide (Milk Of Mag) 30 ml DAILY PRN PO CONSTIPATION; Start 04/12/19 at 13:00 Pantoprazole (Protonix Tab) 40 mg DAILY@06 PO Last administered on 04/17/19at 06:19; Admin Dose 40 MG; Start 04/13/19 at 06:00 Apixaban (Eliquis) 5 mg BID PO Last administered on 04/17/19at 09:04; Admin Dose 5 MG; Start 04/12/19 at 21:00 Metoprolol Tartrate (Lopressor) 5 mg Q2H PRN IV heart rate over 110 Last administered on 04/15/19 09:11; Admin Dose 5 MG; Start 04/13/19 at 09:30 Morphine Sulfate (morphine) 2 mg Q4H PRN IV SEVERE PAIN LEVEL 7-10 Last administered on 04/14/19at 14:56; Admin Dose 2 MG; Start 04/13/19 at 23:30 IV Flush (NS 10 ml) 10 ml Q8 PRN IV IV PROTOCOL; Start 04/14/19 at 15:00 Lorazepam (Ativan) 1 mg Q6H PRN IV anxiety; Start 04/14/19 at 15:00 Miscellaneous Information (Pending [facility] Order For Wound Care) This patient urias... PRN PRN XX WOUND CARE; Start 04/14/19 at 21:00 Amiodarone HCl (Cordarone) 400 mg TID PO Last administered on 04/17/19 09:04; Admin Dose 400 MG; Start 04/16/19 at 13:00 Metoprolol Succinate (Toprol Xl) 50 mg BID PO Last administered on 04/17/19 09:05; Admin Dose 50 MG; Start 04/16/19 at 21:00 Bumetanide (Bumex) 1 mg DAILY IV Last administered on 04/17/19 09:05; Admin Dose 1 MG; Start 04/17/19 at 09:00 ABRAHAM LEYVA Apr 17, 2019 09:52
--- NOTE | 2019-04-17 11:23 | CONS ---
Consult Date/Type/Reason Admit Date/Time Apr 12, 2019 at 12:21 Initial Consult Date 04/13/19 Type of Consultation: Pulm/CCM Requesting Provider: MARVIN FOX MD Date/Time of Note DATE: 04/17/19 TIME: 11:21 Subjective Doing better. Less dyspneic though remains on high flow NC. Objective Vitals Vital Signs Date Temp Pulse Resp B/P (MAP) Pulse Ox O2 O2 Flow FiO2 Time Delivery Rate 04/17/19 Nasal 11:04 Cannula 04/17/19 81 18 108/89 98 10:00 (95) 04/17/19 97.9 08:00 04/17/19 40 05:10 04/15/19 20.0 22:00 Intake and Output 04/16/19 04/16/19 04/17/19 1515:00 23:00 07:00 IntakeIntake Total 946.8 ml 840 ml 350 ml OutputOutput Total 775 ml 440 ml 450 ml BalanceBalance 171.8 ml 400 ml -100 ml Exam HEENT: Neck supple; no JVD; no LAD CVS: tachy irreg irreg S1 and S2 CHEST: Clear anteriorly ABD: Soft, NT, + BS EXT: No c/c/e Results/Medications Result Diagram: 04/17/19 0400 04/17/19 0400 Results 24 hrs Laboratory Tests Test 04/17/19 04:00 04/17/19 05:00 White Blood Count 9.8 Red Blood Count 4.22 L Hemoglobin 11.9 L Hematocrit 37.5 L Mean Corpuscular Volume 88.9 Mean Corpuscular Hemoglobin 28.2 L Mean Corpuscular Hemoglobin Concent 31.7 L Red Cell Distribution Width 15.7 H Platelet Count 142 Mean Platelet Volume 10.4 Immature Granulocytes % 0.400 Neutrophils % 79.5 H Lymphocytes % 8.4 L Monocytes % 10.6 Eosinophils % 0.9 Basophils % 0.2 Nucleated Red Blood Cells % 0.6 H Immature Granulocytes # 0.040 H Neutrophils # 7.8 H Lymphocytes # 0.8 Monocytes # 1.0 H Eosinophils # 0.1 Basophils # 0.0 Nucleated Red Blood Cells # 0.1 H Sodium Level 139 Potassium Level 3.8 Chloride Level 91 L Carbon Dioxide Level 39 H Anion Gap 9 Blood Urea Nitrogen 61 H Creatinine 1.75 H Est Glomerular Filtrat Rate mL/min 40 L Glucose Level 108 Lactic Acid Level 1.2 Calcium Level 8.2 L Magnesium Level 2.4 Total Bilirubin 1.6 H Direct Bilirubin 0.00 Indirect Bilirubin 1.6 H Aspartate Amino Transf (AST/SGOT) 379 H Alanine Aminotransferase (ALT/SGPT) 1156 H Alkaline Phosphatase 85 B-Type Natriuretic Peptide 3470 H Total Protein 6.5 Albumin 3.9 Globulin 2.60 Albumin/Globulin Ratio 1.50 Digoxin Level 0.5 L Blood Gas Specimen Source Blood arterial Arterial Blood Date Drawn 04/17/2019 4:30:47 AM Arterial Blood pH (Temp corrected) 7.431 Arterial Blood pCO2 (Temp correct) 50.1 H Arterial Blood pO2 (Temp corrected) 90.5 Arterial Blood HCO3 32.6 H Arterial Blood Base Excess 7.0 H Arterial Blood Oxygen Saturation 95.9 Can Test ACCEPTAB Arterial Blood Gas Puncture Site Left Radial Arterial Blood Carboxyhemoglobin 0.7 Arterial Blood Methemoglobin 0.1 Blood Gas A-a O2 Differential 137.1 H Oxyhemoglobin Percent 95.1 Blood Gas Temperature 37.0 Blood Gas Respiration Rate 18.0 Blood Gas Actual Respiration Rate 24 Blood Gas Modality MASK - BIPAP FiO2 40.0 Blood Gas Pressure Support 10 Blood Gas IPAP/EPAP Ratio 15/5 Blood Gas Notified Whom MA Blood Gas Notified Time 04/17/2019 4:56:40 AM Home Meds Reported Medications Aspirin* (Aspirin* EC) 81 Mg Tablet.dr, 81 MG PO DAILY, TAB 04/12/19 Atorvastatin Calcium* (Atorvastatin Calcium*) 20 Mg Tablet, 20 MG PO QHS, #30 TAB 04/12/19 Losartan Potassium* (Losartan Potassium*) 100 Mg Tablet, 100 MG PO DAILY, TAB 04/12/19 Amlodipine Besylate* (Amlodipine Besylate*) 10 Mg Tablet, 10 MG PO DAILY, #30 TAB 04/12/19 Discontinued Reported Medications Losartan Potassium* (Losartan Potassium*) 100 Mg Tablet, 100 MG PO DAILY, TAB 11/09/17 Amlodipine Besylate* (Amlodipine Besylate*) 10 Mg Tablet, 10 MG PO DAILY, #30 TAB 11/09/17 Hydrochlorothiazide* (Hydrochlorothiazide*) 12.5 Mg Tablet, 12.5 MG PO DAILY, #30 TAB 11/09/17 Atorvastatin Calcium* (Atorvastatin Calcium*) 20 Mg Tablet, 20 MG PO QHS, #30 TAB 11/09/17 Medications Current Medications Aspirin (Halfprin) 81 mg DAILY PO Last administered on 04/17/19 09:05; Admin Dose 81 MG; Start 04/13/19 at 09:00 Atorvastatin Calcium (Lipitor) 20 mg QHS PO Last administered on 04/16/19 20:56; Admin Dose 20 MG; Start 04/12/19 at 21:00 Ondansetron HCl (Zofran Inj) 4 mg Q6H PRN IV NAUSEA AND/OR VOMITING Last administered on 04/15/19 16:27; Admin Dose 4 MG; Start 04/12/19 at 13:00 Albuterol (Proventil 0.083% (Neb)) 2.5 mg Q2H RESP THERAPY PRN NEB SHORTNESS OF BREATH; Start 04/12/19 at 13:00 Acetaminophen (Tylenol Tab) 650 mg Q6H PRN PO PAIN LEVEL 1-3 OR FEVER; Start 04/12/19 at 13:00 Docusate Sodium (Colace) 100 mg Q12H PRN PO CONSTIPATION; Start 04/12/19 at 13:00 Magnesium Hydroxide (Milk Of Mag) 30 ml DAILY PRN PO CONSTIPATION; Start 04/12/19 at 13:00 Pantoprazole (Protonix Tab) 40 mg DAILY@06 PO Last administered on 04/17/19 06:19; Admin Dose 40 MG; Start 04/13/19 at 06:00 Apixaban (Eliquis) 5 mg BID PO Last administered on 04/17/19 09:04; Admin Dose 5 MG; Start 04/12/19 at 21:00 Metoprolol Tartrate (Lopressor) 5 mg Q2H PRN IV heart rate over 110 Last administered on 04/15/19 09:11; Admin Dose 5 MG; Start 04/13/19 at 09:30 Morphine Sulfate (morphine) 2 mg Q4H PRN IV SEVERE PAIN LEVEL 7-10 Last administered on 04/14/19at 14:56; Admin Dose 2 MG; Start 04/13/19 at 23:30 IV Flush (NS 10 ml) 10 ml Q8 PRN IV IV PROTOCOL; Start 04/14/19 at 15:00 Lorazepam (Ativan) 1 mg Q6H PRN IV anxiety; Start 04/14/19 at 15:00 Miscellaneous Information (Pending Santyl Order For Wound Care) This patient urias... PRN PRN XX WOUND CARE; Start 04/14/19 at 21:00 Amiodarone HCl (Cordarone) 400 mg TID PO Last administered on 04/17/19at 09:04; Admin Dose 400 MG; Start 04/16/19 at 13:00 Metoprolol Succinate (Toprol Xl) 50 mg BID PO Last administered on 04/17/19at 09:05; Admin Dose 50 MG; Start 04/16/19 at 21:00 Bumetanide (Bumex) 1 mg DAILY IV Last administered on 04/17/19at 09:05; Admin Dose 1 MG; Start 04/17/19 at 09:00 Assessment/Plan Assessment/Plan (Daily) IMP: 1. ADHF 2. HFrEF 3. ARF--likely cardiorenal 4. Afib with RVR 5. Ischemic Hepatopathy 2/2 #1 6. Hypoxemic Resp Failure 2/2 #1 RECS: 1. Continue diuresis until creatine bumps; follow I/O's closely 2. Amiodarone PO 3. De-escalate abx--> off 4. Titrate FiO2--> will try to transition to NC 5. Mobilize OOB 6. Telemetry 35 min cc time ANITA CLEVELAND MD Apr 17, 2019 11:23
--- NOTE | 2019-04-17 12:01 | CONS ---
Assessment/Plan Assessment/Plan Hospital Course (Demo Recall) SUBJECTIVE: Tx to tele, looks comfortable, no fevers INDWELLINGS: The patient has a PICC line and a Cárdenas catheter. MICROBIOLOGY: All cultures negative. PHYSICAL EXAMINATION: GENERAL: This is a well-developed, elderly man who is awake, in no distress. HEENT: Head atraumatic, normocephalic. NECK: Supple. CHEST: Rise symmetrical. Breath sounds diminished at the bases. HEART: S1, S2. ABDOMEN: Soft. Bowel tones present. EXTREMITIES: Without cyanosis. ASSESSMENT: 1. Acute hypoxemic respiratory failure secondary to congestive heart failure exacerbation. 2. Atrial fibrillation with rapid ventricular response, currently controlled on amiodarone drip. 3. [id number] myocardial infarction. 4. Acute possibly on chronic kidney disease. 5. Ischemic cardiomyopathy. PLAN: The patient remains stable. Antibiotics dc'd yesterday, f/u card/pulmonary rec-s, reculture p.r.n. Consultation Date/Type/Reason Admit Date/Time Apr 12, 2019 at 12:21 Initial Consult Date 04/13/19 Type of Consult id Requesting Provider: MARVIN FOX MD Date/Time of Note DATE: 04/17/19 TIME: 11:58 Exam/Review of Systems Exam Vitals Vital Signs Date Temp Pulse Resp B/P (MAP) Pulse Ox O2 O2 Flow FiO2 Time Delivery Rate 04/17/19 98.0 56 103/51 99 11:28 (68) 04/17/19 Nasal 11:04 Cannula 04/17/19 18 10:45 04/17/19 40 05:10 04/15/19 20.0 22:00 Intake and Output 04/16/19 04/16/19 04/17/19 1515:00 23:00 07:00 IntakeIntake Total 946.8 ml 840 ml 350 ml OutputOutput Total 775 ml 440 ml 450 ml BalanceBalance 171.8 ml 400 ml -100 ml Results Result Diagram: 04/17/19 0400 04/17/19 0400 Results 24hrs Laboratory Tests Test 04/17/19 04:00 04/17/19 05:00 White Blood Count 9.8 Red Blood Count 4.22 L Hemoglobin 11.9 L Hematocrit 37.5 L Mean Corpuscular Volume 88.9 Mean Corpuscular Hemoglobin 28.2 L Mean Corpuscular Hemoglobin Concent 31.7 L Red Cell Distribution Width 15.7 H Platelet Count 142 Mean Platelet Volume 10.4 Immature Granulocytes % 0.400 Neutrophils % 79.5 H Lymphocytes % 8.4 L Monocytes % 10.6 Eosinophils % 0.9 Basophils % 0.2 Nucleated Red Blood Cells % 0.6 H Immature Granulocytes # 0.040 H Neutrophils # 7.8 H Lymphocytes # 0.8 Monocytes # 1.0 H Eosinophils # 0.1 Basophils # 0.0 Nucleated Red Blood Cells # 0.1 H Sodium Level 139 Potassium Level 3.8 Chloride Level 91 L Carbon Dioxide Level 39 H Anion Gap 9 Blood Urea Nitrogen 61 H Creatinine 1.75 H Est Glomerular Filtrat Rate mL/min 40 L Glucose Level 108 Lactic Acid Level 1.2 Calcium Level 8.2 L Magnesium Level 2.4 Total Bilirubin 1.6 H Direct Bilirubin 0.00 Indirect Bilirubin 1.6 H Aspartate Amino Transf (AST/SGOT) 379 H Alanine Aminotransferase (ALT/SGPT) 1156 H Alkaline Phosphatase 85 B-Type Natriuretic Peptide 3470 H Total Protein 6.5 Albumin 3.9 Globulin 2.60 Albumin/Globulin Ratio 1.50 Digoxin Level 0.5 L Blood Gas Specimen Source Blood arterial Arterial Blood Date Drawn 04/17/2019 4:30:47 AM Arterial Blood pH (Temp corrected) 7.431 Arterial Blood pCO2 (Temp correct) 50.1 H Arterial Blood pO2 (Temp corrected) 90.5 Arterial Blood HCO3 32.6 H Arterial Blood Base Excess 7.0 H Arterial Blood Oxygen Saturation 95.9 Can Test ACCEPTAB Arterial Blood Gas Puncture Site Left Radial Arterial Blood Carboxyhemoglobin 0.7 Arterial Blood Methemoglobin 0.1 Blood Gas A-a O2 Differential 137.1 H Oxyhemoglobin Percent 95.1 Blood Gas Temperature 37.0 Blood Gas Respiration Rate 18.0 Blood Gas Actual Respiration Rate 24 Blood Gas Modality MASK - BIPAP FiO2 40.0 Blood Gas Pressure Support 10 Blood Gas IPAP/EPAP Ratio 15/5 Blood Gas Notified Whom MA Blood Gas Notified Time 04/17/2019 4:56:40 AM Medications Medication Current Medications Aspirin (Halfprin) 81 mg DAILY PO Last administered on 04/17/19at 09:05; Admin Dose 81 MG; Start 04/13/19 at 09:00 Atorvastatin Calcium (Lipitor) 20 mg QHS PO Last administered on 7/27/19at 20:56; Admin Dose 20 MG; Start 04/12/19 at 21:00 Ondansetron HCl (Zofran Inj) 4 mg Q6H PRN IV NAUSEA AND/OR VOMITING Last administered on 04/15/19 16:27; Admin Dose 4 MG; Start 04/12/19 at 13:00 Albuterol (Proventil 0.083% (Neb)) 2.5 mg Q2H RESP THERAPY PRN NEB SHORTNESS OF BREATH; Start 04/12/19 at 13:00 Acetaminophen (Tylenol Tab) 650 mg Q6H PRN PO PAIN LEVEL 1-3 OR FEVER; Start 04/12/19 at 13:00 Docusate Sodium (Colace) 100 mg Q12H PRN PO CONSTIPATION; Start 04/12/19 at 13:00 Magnesium Hydroxide (Milk Of Mag) 30 ml DAILY PRN PO CONSTIPATION; Start 04/12/19 at 13:00 Pantoprazole (Protonix Tab) 40 mg DAILY@06 PO Last administered on 04/17/19 06:19; Admin Dose 40 MG; Start 04/13/19 at 06:00 Apixaban (Eliquis) 5 mg BID PO Last administered on 04/17/19 09:04; Admin Dose 5 MG; Start 04/12/19 at 21:00 Metoprolol Tartrate (Lopressor) 5 mg Q2H PRN IV heart rate over 110 Last administered on 04/15/19at 09:11; Admin Dose 5 MG; Start 04/13/19 at 09:30 Morphine Sulfate (morphine) 2 mg Q4H PRN IV SEVERE PAIN LEVEL 7-10 Last administered on 04/14/19at 14:56; Admin Dose 2 MG; Start 04/13/19 at 23:30 IV Flush (NS 10 ml) 10 ml Q8 PRN IV IV PROTOCOL; Start 04/14/19 at 15:00 Lorazepam (Ativan) 1 mg Q6H PRN IV anxiety; Start 04/14/19 at 15:00 Miscellaneous Information (Pending Santyl Order For Wound Care) This patient urias... PRN PRN XX WOUND CARE; Start 04/14/19 at 21:00 Amiodarone HCl (Cordarone) 400 mg TID PO Last administered on 04/17/19 09:04; Admin Dose 400 MG; Start 04/16/19 at 13:00 Metoprolol Succinate (Toprol Xl) 50 mg BID PO Last administered on 04/17/19at 09:05; Admin Dose 50 MG; Start 04/16/19 at 21:00 Bumetanide (Bumex) 1 mg DAILY IV Last administered on 04/17/19at 09:05; Admin Dose 1 MG; Start 04/17/19 at 09:00 TISHA GO NP Apr 17, 2019 12:01
--- NOTE | 2019-04-17 13:49 | CONS ---
Consult Date/Type/Reason Admit Date/Time Apr 12, 2019 at 12:21 Initial Consult Date 04/13/19 Type of Consultation: cv Requesting Provider: MARVIN FOX MD Date/Time of Note DATE: 04/17/19 TIME: 13:47 Subjective Interventional cardiology follow-up progress Subjective: Discussed with the staff and telemetry was reviewed. Patient has remained in atrial fibrillation HR is better today Blood pressure has been stable now and pt is out of ICU now. No chest pain or pressure but does have severe shortness of breath. d/w physicians Objective: General: no acute distress HEENT: NC/AT. pupils are equal. round. NECK: no stridor. CV: Irregularly irregular systolic murmur; no gallop or rubs. PULM: no wheezing + diffuse rhonchi. GI: SOFT, NT, ND, no rebound or guarding Extremity: + B/L LE edema. no clubbing. neuro: awake and alert, Psych: calm and pleasant rectal: deferred Echo has shown ejection fraction of 20% CXR 04/17 Cardiomegaly with no significant change in diffuse interstitial opacities, suggestive of edema. No significant change in small to moderate right and small left pleural effusions with adjacent consolidation. Objective Vitals Vital Signs Date Temp Pulse Resp B/P (MAP) Pulse Ox O2 O2 Flow FiO2 Time Delivery Rate 04/17/19 65 103/66 13:07 (78) 04/17/19 98.0 99 11:28 04/17/19 45 11:10 04/17/19 Nasal 11:04 Cannula 04/17/19 18 10:45 04/15/19 20.0 22:00 Intake and Output 04/16/19 04/16/19 04/17/19 1515:00 23:00 07:00 IntakeIntake Total 946.8 ml 840 ml 350 ml OutputOutput Total 775 ml 440 ml 450 ml BalanceBalance 171.8 ml 400 ml -100 ml Results/Medications Result Diagram: 04/17/19 0400 04/17/19 0400 Results 24 hrs Laboratory Tests Test 04/17/19 04:00 04/17/19 05:00 White Blood Count 9.8 Red Blood Count 4.22 L Hemoglobin 11.9 L Hematocrit 37.5 L Mean Corpuscular Volume 88.9 Mean Corpuscular Hemoglobin 28.2 L Mean Corpuscular Hemoglobin Concent 31.7 L Red Cell Distribution Width 15.7 H Platelet Count 142 Mean Platelet Volume 10.4 Immature Granulocytes % 0.400 Neutrophils % 79.5 H Lymphocytes % 8.4 L Monocytes % 10.6 Eosinophils % 0.9 Basophils % 0.2 Nucleated Red Blood Cells % 0.6 H Immature Granulocytes # 0.040 H Neutrophils # 7.8 H Lymphocytes # 0.8 Monocytes # 1.0 H Eosinophils # 0.1 Basophils # 0.0 Nucleated Red Blood Cells # 0.1 H Sodium Level 139 Potassium Level 3.8 Chloride Level 91 L Carbon Dioxide Level 39 H Anion Gap 9 Blood Urea Nitrogen 61 H Creatinine 1.75 H Est Glomerular Filtrat Rate mL/min 40 L Glucose Level 108 Lactic Acid Level 1.2 Calcium Level 8.2 L Magnesium Level 2.4 Total Bilirubin 1.6 H Direct Bilirubin 0.00 Indirect Bilirubin 1.6 H Aspartate Amino Transf (AST/SGOT) 379 H Alanine Aminotransferase (ALT/SGPT) 1156 H Alkaline Phosphatase 85 B-Type Natriuretic Peptide 3470 H Total Protein 6.5 Albumin 3.9 Globulin 2.60 Albumin/Globulin Ratio 1.50 Digoxin Level 0.5 L Blood Gas Specimen Source Blood arterial Arterial Blood Date Drawn 04/17/2019 4:30:47 AM Arterial Blood pH (Temp corrected) 7.431 Arterial Blood pCO2 (Temp correct) 50.1 H Arterial Blood pO2 (Temp corrected) 90.5 Arterial Blood HCO3 32.6 H Arterial Blood Base Excess 7.0 H Arterial Blood Oxygen Saturation 95.9 Can Test ACCEPTAB Arterial Blood Gas Puncture Site Left Radial Arterial Blood Carboxyhemoglobin 0.7 Arterial Blood Methemoglobin 0.1 Blood Gas A-a O2 Differential 137.1 H Oxyhemoglobin Percent 95.1 Blood Gas Temperature 37.0 Blood Gas Respiration Rate 18.0 Blood Gas Actual Respiration Rate 24 Blood Gas Modality MASK - BIPAP FiO2 40.0 Blood Gas Pressure Support 10 Blood Gas IPAP/EPAP Ratio 15/5 Blood Gas Notified Whom MA Blood Gas Notified Time 04/17/2019 4:56:40 AM Home Meds Reported Medications Aspirin* (Aspirin* EC) 81 Mg Tablet.dr, 81 MG PO DAILY, TAB 04/12/19 Atorvastatin Calcium* (Atorvastatin Calcium*) 20 Mg Tablet, 20 MG PO QHS, #30 TAB 04/12/19 Losartan Potassium* (Losartan Potassium*) 100 Mg Tablet, 100 MG PO DAILY, TAB 04/12/19 Amlodipine Besylate* (Amlodipine Besylate*) 10 Mg Tablet, 10 MG PO DAILY, #30 TAB 04/12/19 Discontinued Reported Medications Losartan Potassium* (Losartan Potassium*) 100 Mg Tablet, 100 MG PO DAILY, TAB 11/09/17 Amlodipine Besylate* (Amlodipine Besylate*) 10 Mg Tablet, 10 MG PO DAILY, #30 TAB 11/09/17 Hydrochlorothiazide* (Hydrochlorothiazide*) 12.5 Mg Tablet, 12.5 MG PO DAILY, #30 TAB 11/09/17 Atorvastatin Calcium* (Atorvastatin Calcium*) 20 Mg Tablet, 20 MG PO QHS, #30 TAB 11/09/17 Medications Current Medications Aspirin (Halfprin) 81 mg DAILY PO Last administered on 04/17/19at 09:05; Admin D ose 81 MG; Start 04/13/19 at 09:00 Atorvastatin Calcium (Lipitor) 20 mg QHS PO Last administered on 04/16/19at 20:56; Admin Dose 20 MG; Start 04/12/19 at 21:00 Ondansetron HCl (Zofran Inj) 4 mg Q6H PRN IV NAUSEA AND/OR VOMITING Last administered on 04/15/19at 16:27; Admin Dose 4 MG; Start 04/12/19 at 13:00 Albuterol (Proventil 0.083% (Neb)) 2.5 mg Q2H RESP THERAPY PRN NEB SHORTNESS OF BREATH; Start 04/12/19 at 13:00 Acetaminophen (Tylenol Tab) 650 mg Q6H PRN PO PAIN LEVEL 1-3 OR FEVER; Start 04/12/19 at 13:00 Docusate Sodium (Colace) 100 mg Q12H PRN PO CONSTIPATION; Start 04/12/19 at 13:00 Magnesium Hydroxide (Milk Of Mag) 30 ml DAILY PRN PO CONSTIPATION; Start 04/12/19 at 13:00 Pantoprazole (Protonix Tab) 40 mg DAILY@06 PO Last administered on 04/17/19at 06:19; Admin Dose 40 MG; Start 04/13/19 at 06:00 Apixaban (Eliquis) 5 mg BID PO Last administered on 04/17/19at 09:04; Admin Dose 5 MG; Start 04/12/19 at 21:00 Metoprolol Tartrate (Lopressor) 5 mg Q2H PRN IV heart rate over 110 Last administered on 04/15/19 09:11; Admin Dose 5 MG; Start 04/13/19 at 09:30 Morphine Sulfate (morphine) 2 mg Q4H PRN IV SEVERE PAIN LEVEL 7-10 Last administered on 04/14/19 14:56; Admin Dose 2 MG; Start 04/13/19 at 23:30 IV Flush (NS 10 ml) 10 ml Q8 PRN IV IV PROTOCOL; Start 04/14/19 at 15:00 Lorazepam (Ativan) 1 mg Q6H PRN IV anxiety; Start 04/14/19 at 15:00 Miscellaneous Information (Pending [facility] Order For Wound Care) This patient urias... PRN PRN XX WOUND CARE; Start 04/14/19 at 21:00 Amiodarone HCl (Cordarone) 400 mg TID PO Last administered on 04/17/19 13:10; Admin Dose 400 MG; Start 04/16/19 at 13:00 Metoprolol Succinate (Toprol Xl) 50 mg BID PO Last administered on 04/17/19 09:05; Admin Dose 50 MG; Start 04/16/19 at 21:00 Bumetanide (Bumex) 1 mg DAILY IV Last administered on 04/17/19 09:05; Admin Dose 1 MG; Start 04/17/19 at 09:00 Assessment/Plan Hospital Course (Demo Recall) 1. Congestive heart failure 2. Severe cardiomyopathy 3. Atrial fibrillation with ventricular response 4. Possible pneumonia 5. Renal failure 6. History of hypertension 7. Electrolytes abnormality/ hypokalemia 8. Transaminitis Recommendation: This electrolyte as needed Continue with Toprol to 50 twice daily to be able to control it better We will give a dose of digoxin IV and check level tomorrow morning to avoid this toxicity Patient is on p.o. amiodarone . I will stop it given elevated liver function test Thank you for his referral. We will continue to follow along with you until Dr. Costello returns on Thursday FELTON GIVENS MD [facility] FELTON GIVENS MD Apr 17, 2019 13:49
[2019-04-17] MEDS ORDERED: DIGOXIN 500 MCG INJ IV ONE (14:00)
[2019-04-17] MEDS: ATORVASTATIN 20 MG TAB PO SCH (20:18)
[2019-04-18] VITALS (10 sets, daily range): BP systolic 101–121; BP diastolic 68–82; PULSE 67–92; RESP 18–25
[2019-04-18] MEDS: PANTOPRAZOLE (EC) 40 MG TAB PO SCH (06:19)
[2019-04-18] MEDS: ASPIRIN (EC) 81 MG TAB PO SCH (08:32)
[2019-04-18] MEDS: APIXABAN 5 MG TABLET PO SCH ×2 (08:32→20:16)
[2019-04-18] MEDS: METOPROLOL (XL) 50 MG TAB PO SCH ×2 (08:32→20:19)
[2019-04-18] MEDS: BUMETANIDE 1 MG INJ IV SCH (08:32)
--- NOTE | 2019-04-18 10:27 | PN ---
Date/Time of Note Date/Time of Note DATE: 04/18/19 TIME: 10:27 Objective Vitals Vital Signs Date Temp Pulse Resp B/P (MAP) Pulse Ox O2 O2 Flow FiO2 Time Delivery Rate 04/18/19 97.5 67 25 117/78 99 BIPAP 07:39 (91) 04/18/19 40 05:42 04/17/19 6.0 19:44 Intake and Output 04/17/19 04/17/19 04/18/19 1515:00 23:00 07:00 IntakeIntake Total 780 ml 200 ml 200 ml OutputOutput Total 600 ml 1200 ml 500 ml BalanceBalance 180 ml -1000 ml -300 ml Results Result Diagram: 04/18/19 0547 04/18/19 0547 Medications Medications Current Medications Aspirin (Halfprin) 81 mg DAILY PO Last administered on 04/18/19at 08:32; Admin Dose 81 MG; Start 04/13/19 at 09:00 Atorvastatin Calcium (Lipitor) 20 mg QHS PO Last administered on 04/17/19at 20:18; Admin Dose 20 MG; Start 04/12/19 at 21:00 Ondansetron HCl (Zofran Inj) 4 mg Q6H PRN IV NAUSEA AND/OR VOMITING Last administered on 04/15/19at 16:27; Admin Dose 4 MG; Start 04/12/19 at 13:00 Albuterol (Proventil 0.083% (Neb)) 2.5 mg Q2H RESP THERAPY PRN NEB SHORTNESS OF BREATH; Start 04/12/19 at 13:00 Acetaminophen (Tylenol Tab) 650 mg Q6H PRN PO PAIN LEVEL 1-3 OR FEVER; Start 04/12/19 at 13:00 Docusate Sodium (Colace) 100 mg Q12H PRN PO CONSTIPATION; Start 04/12/19 at 13:00 Magnesium Hydroxide (Milk Of Mag) 30 ml DAILY PRN PO CONSTIPATION; Start 04/12/19 at 13:00 Pantoprazole (Protonix Tab) 40 mg DAILY@06 PO Last administered on 04/18/19at 06:19; Admin Dose 40 MG; Start 04/13/19 at 06:00 Apixaban (Eliquis) 5 mg BID PO Last administered on 04/18/19at 08:32; Admin Dose 5 MG; Start 04/12/19 at 21:00 Metoprolol Tartrate (Lopressor) 5 mg Q2H PRN IV heart rate over 110 Last administered on 04/15/19at 09:11; Admin Dose 5 MG; Start 04/13/19 at 09:30 Morphine Sulfate (morphine) 2 mg Q4H PRN IV SEVERE PAIN LEVEL 7-10 Last administered on 04/14/19at 14:56; Admin Dose 2 MG; Start 04/13/19 at 23:30 IV Flush (NS 10 ml) 10 ml Q8 PRN IV IV PROTOCOL; Start 04/14/19 at 15:00 Lorazepam (Ativan) 1 mg Q6H PRN IV anxiety; Start 04/14/19 at 15:00 Miscellaneous Information (Pending [facility] Order For Wound Care) This patient urias... PRN PRN XX WOUND CARE; Start 04/14/19 at 21:00 Amiodarone HCl (Cordarone) 400 mg TID PO Last administered on 04/17/19at 13:10; Admin Dose 400 MG; Start 04/16/19 at 13:00; Status Hold Metoprolol Succinate (Toprol Xl) 50 mg BID PO Last administered on 04/18/19at 08:32; Admin Dose 50 MG; Start 04/16/19 at 21:00 Bumetanide (Bumex) 1 mg DAILY IV Last administered on 04/18/19at 08:32; Admin Dose 1 MG; Start 04/17/19 at 09:00 VTE Prophylaxis Risk score (from Ns)>0 risk: 6 SCD applied (from [facility]): No SCD contraindication: other Lines/Catheters IV Catheter Type: Colvin in Place: Yes Cont'd colvin catheter reason: terminal illness/intractable pain Assessment/Plan Hospital Course Subjective Patient doing much better, is brushing his teeth and ambulating with Occ upational Therapy on 6 L of oxygen with good O2 saturation, patient states he feels well Objective Physical exam General: Patient is laying in bed and answers questions appropriately Mentation: Patient is alert and oriented 4, Head: Normocephalic atraumatic Eyes: EOMI, pupils reactive to light Neck: Supple, nontender, midline Respiratory: Mildly coarse to auscultation bilaterally Cardiovascular: regular rate, no obvious murmurs Gastrointestinal: non-tender to palpation, bowel sounds heard. Neurological: Moves all extremities spontaneously Skin: No new skin lesions Assessment/Plan 1. Acute hypoxic respiratory failure- stable - patient is doing well on NC. Currently on 6L at 45%. - Pulm consultation appreciated. - Nebs PRN 2. Acute systolic congestive heart failure- improving - BNP noted - Cardiology on board and appreciate recommendations - Nephrology on board for management of diuretics. Will continue on Bumex - monitor I/O and daily weights - ECHO results noted with low EF 3. New onset afib with RVR- improving - patient now rate controlled after given digoxin - continue on PO amiodarone - Cardiology consultation appreciated - On Eliquis 4. DANYA- improving - Nephrology consultation appreciated - most likely secondary to ATN in setting of afib with RVR, hypoxia, and cardiorenal - US results noted - will renally dose medications 5. Bilateral pneumonia - seen on CXR - ID consultation appreciated and d/c antibiotics . will monitor off antibiotics per ID recs - continue Neb tx PRN 6. Elevated trop - most likely type 2 demand - will need stress test when stable and possible PCI in future when renal function improves - no chest pain noted 7. Elevated LFT- improving - Liver US noted - most likely due to congestion - no abdominal pain noted 8. Sleep apnea - on BIPAP qhs 9. HTN - continue home medications and adjust as needed 10. Sepsis secondary to PNA- improving - WBC nl and remains afebrile 11. Disposition -Cardiology recommendations appreciated, questionable timing of stress test versus cardiac cath LUIS CARLOS KENYON Apr 18, 2019 10:27
--- NOTE | 2019-04-18 12:17 | CONS ---
Consult Date/Type/Reason Admit Date/Time Apr 12, 2019 at 12:21 Initial Consult Date 04/13/19 Type of Consult Pulmonary Requesting Provider: MARVIN FOX MD Date/Time of Note DATE: 04/18/19 TIME: 12:16 Subjective Slowly improving. Less shortness of breath. Objective Vital Signs Date Temp Pulse Resp B/P (MAP) Pulse Ox O2 O2 Flow FiO2 Time Delivery Rate 04/18/19 97.7 75 20 101/71 100 Nasal 11:11 (81) Cannula 04/18/19 40 05:42 04/17/19 6.0 19:44 Intake and Output 04/17/19 04/17/19 04/18/19 1515:00 23:00 07:00 IntakeIntake Total 780 ml 200 ml 200 ml OutputOutput Total 600 ml 1200 ml 500 ml BalanceBalance 180 ml -1000 ml -300 ml Exam GENERAL: Well-nourished well-developed gentleman comfortable at rest VITAL SIGNS: per chart NECK: Supple. No JVD or lymphadenopathy. CARDIAC EXAM: S1, S2. No added sounds or murmurs. CHEST: Diminished air entry at bases ABDOMEN: Soft, nontender. No guarding or rebound. EXTREMITIES: No cyanosis, clubbing or edema. NEUROLOGIC: Generalized weakness. No focal deficits. Vent Setting Fraction of Inspired Oxygen pe: 44 Results/Medications Result Diagram: 04/18/19 0547 04/18/19 0547 Results 24 hrs Laboratory Tests Test 04/18/19 05:47 White Blood Count 8.9 Red Blood Count 4.11 L Hemoglobin 11.5 L Hematocrit 36.5 L Mean Corpuscular Volume 88.8 Mean Corpuscular Hemoglobin 28.0 L Mean Corpuscular Hemoglobin Concent 31.5 L Red Cell Distribution Width 15.3 H Platelet Count 139 L Mean Platelet Volume 10.2 Immature Granulocytes % 0.400 Neutrophils % 77.3 H Lymphocytes % 10.2 L Monocytes % 9.9 Eosinophils % 2.0 Basophils % 0.2 Nucleated Red Blood Cells % 0.2 H Immature Granulocytes # 0.040 H Neutrophils # 6.9 Lymphocytes # 0.9 Monocytes # 0.9 Eosinophils # 0.2 Basophils # 0.0 Nucleated Red Blood Cells # 0.0 Sodium Level 140 Potassium Level 3.6 Chloride Level 93 L Carbon Dioxide Level 38 H Anion Gap 9 Blood Urea Nitrogen 53 H Creatinine 1.55 H Est Glomerular Filtrat Rate mL/min 46 L Glucose Level 115 Calcium Level 8.5 Magnesium Level 2.3 Total Bilirubin 1.7 H Direct Bilirubin 0.00 Indirect Bilirubin 1.7 H Aspartate Amino Transf (AST/SGOT) 247 H Alanine Aminotransferase (ALT/SGPT) 867 H Alkaline Phosphatase 125 H Total Protein 6.5 Albumin 3.8 Globulin 2.70 Albumin/Globulin Ratio 1.40 Digoxin Level 0.4 L Medications Current Medications Aspirin (Halfprin) 81 mg DAILY PO Last administered on 04/18/19 08:32; Admin Dose 81 MG; Start 04/13/19 at 09:00 Atorvastatin Calcium (Lipitor) 20 mg QHS PO Last administered on 04/17/19 20:18; Admin Dose 20 MG; Start 04/12/19 at 21:00 Ondansetron HCl (Zofran Inj) 4 mg Q6H PRN IV NAUSEA AND/OR VOMITING Last administered on 04/15/19 16:27; Admin Dose 4 MG; Start 04/12/19 at 13:00 Albuterol (Proventil 0.083% (Neb)) 2.5 mg Q2H RESP THERAPY PRN NEB SHORTNESS OF BREATH; Start 04/12/19 at 13:00 Acetaminophen (Tylenol Tab) 650 mg Q6H PRN PO PAIN LEVEL 1-3 OR FEVER; Start 04/12/19 at 13:00 Docusate Sodium (Colace) 100 mg Q12H PRN PO CONSTIPATION; Start 04/12/19 at 13:00 Magnesium Hydroxide (Milk Of Mag) 30 ml DAILY PRN PO CONSTIPATION; Start 04/12/19 at 13:00 Pantoprazole (Protonix Tab) 40 mg DAILY@06 PO Last administered on 04/18/19 06:19; Admin Dose 40 MG; Start 04/13/19 at 06:00 Apixaban (Eliquis) 5 mg BID PO Last administered on 04/18/19 08:32; Admin Dose 5 MG; Start 04/12/19 at 21:00 Metoprolol Tartrate (Lopressor) 5 mg Q2H PRN IV heart rate over 110 Last administered on 04/15/19 09:11; Admin Dose 5 MG; Start 04/13/19 at 09:30 Morphine Sulfate (morphine) 2 mg Q4H PRN IV SEVERE PAIN LEVEL 7-10 Last administered on 04/14/19at 14:56; Admin Dose 2 MG; Start 04/13/19 at 23:30 IV Flush (NS 10 ml) 10 ml Q8 PRN IV IV PROTOCOL; Start 04/14/19 at 15:00 Lorazepam (Ativan) 1 mg Q6H PRN IV anxiety; Start 04/14/19 at 15:00 Miscellaneous Information (Pending [facility] Order For Wound Care) This patient urias... PRN PRN XX WOUND CARE; Start 04/14/19 at 21:00 Amiodarone HCl (Cordarone) 400 mg TID PO Last administered on 04/17/19at 13:10; Admin Dose 400 MG; Start 04/16/19 at 13:00; Status Hold Metoprolol Succinate (Toprol Xl) 50 mg BID PO Last administered on 04/18/19at 08:32; Admin Dose 50 MG; Start 04/16/19 at 21:00 Bumetanide (Bumex) 1 mg DAILY IV Last administered on 04/18/19at 08:32; Admin Dose 1 MG; Start 04/17/19 at 09:00 Assessment/Plan Hospital Course (Demo Recall) IMP: 1. ADHF 2. HFrEF 3. ARF--likely cardiorenal 4. Afib with RVR 5. Ischemic Hepatopathy 2/2 #1 6. Hypoxemic Resp Failure 2/2 #1 RECS: 1. Continue diuresis until creatine bumps; follow I/O's closely 2. Amiodarone PO 3. De-escalate abx--> off 4. Titrate FiO2--> will try to transition to NC 5. Mobilize OOB Will likely need fdc facility was discussed with patient OMER HANSON MD, [facility] Apr 18, 2019 12:17
--- NOTE | 2019-04-18 17:16 | CONS ---
Assessment/Plan Assessment/Plan Assessment/Plan (Daily) 1. Oliguric Acute kidney injury on CKD 2/2 Hemodynamics from CHF and atrial fibrillation RVR , also contributing ATN from sepsis 2. acute hypoxic respiratory failure requiring BIPAP due to Bilateral PNA and CHF 3. sepsis due to Bilateral PNA 4. Acute CHF exacerbation with EF 20% on ECHO, most likely new onset since pt has been denying any H/o CHF 5. New onset afib with RVR- on cardizem gtt 6. H/o HTN 7. H/o Sleep apnea 8. H/o Possible CKD but pt has been denying it.. His Renal Us showed normal echogenicity of kidneys but kidneys are small in size, The right kidney measures 9.5 cm. The left kidney measures 9.2 cm. Plan: -BUN/Cr 53/1.55, improving, HCo3 38- change bumex to 1mg po daily . Monitor electrolytes and replace as needed IV abx for sepsis and PNA, renally dose all abx , ID following Echo showed EF 20% wiht Moderate MR, moderate to severe TR, Enlarged RV and RVSP 52 Amiodarone 400mg PO TID and metoprolol 50mg PO BID for rate conrol, eliquis for anticoagulation will follow up Consultation Date/Type/Reason Admit Date/Time Apr 12, 2019 at 12:21 Initial Consult Date 04/13/19 Type of Consult NEPHROLOGY Requesting Provider: MARVIN FOX MD Date/Time of Note DATE: 04/18/19 TIME: 17:16 Exam/Review of Systems Exam Vitals Vital Signs Date Temp Pulse Resp B/P (MAP) Pulse Ox O2 O2 Flow FiO2 Time Delivery Rate 04/18/19 98.4 78 20 104/68 99 Nasal 15:22 (80) Cannula 04/18/19 6.0 13:52 04/18/19 40 05:42 Intake and Output 04/17/19 04/17/19 04/18/19 1515:00 23:00 07:00 IntakeIntake Total 780 ml 200 ml 200 ml OutputOutput Total 600 ml 1200 ml 500 ml BalanceBalance 180 ml -1000 ml -300 ml Exam Constitutional: more alert communicative, off BIPAP Respiratory: congested cough, crackles/rales, diminished breath sounds Cardiovascular: regular rate and rhythm, nl pulses Gastrointestinal: soft, non-tender Musculoskeletal: muscle weakness, swelling (2-3+ pitting edema ) Extremities: normal pulses Neurological: alert awake, communicative, non focal Results Result Diagram: 04/18/19 0547 04/18/19 0547 Results 24hrs Laboratory Tests Test 04/18/19 05:47 04/18/19 12:20 White Blood Count 8.9 Red Blood Count 4.11 L Hemoglobin 11.5 L Hematocrit 36.5 L Mean Corpuscular Volume 88.8 Mean Corpuscular Hemoglobin 28.0 L Mean Corpuscular Hemoglobin Concent 31.5 L Red Cell Distribution Width 15.3 H Platelet Count 139 L Mean Platelet Volume 10.2 Immature Granulocytes % 0.400 Neutrophils % 77.3 H Lymphocytes % 10.2 L Monocytes % 9.9 Eosinophils % 2.0 Basophils % 0.2 Nucleated Red Blood Cells % 0.2 H Immature Granulocytes # 0.040 H Neutrophils # 6.9 Lymphocytes # 0.9 Monocytes # 0.9 Eosinophils # 0.2 Basophils # 0.0 Nucleated Red Blood Cells # 0.0 Sodium Level 140 Potassium Level 3.6 Chloride Level 93 L Carbon Dioxide Level 38 H Anion Gap 9 Blood Urea Nitrogen 53 H Creatinine 1.55 H Est Glomerular Filtrat Rate mL/min 46 L Glucose Level 115 Calcium Level 8.5 Magnesium Level 2.3 Total Bilirubin 1.7 H Direct Bilirubin 0.00 Indirect Bilirubin 1.7 H Aspartate Amino Transf (AST/SGOT) 247 H Alanine Aminotransferase (ALT/SGPT) 867 H Alkaline Phosphatase 125 H Total Protein 6.5 Albumin 3.8 Globulin 2.70 Albumin/Globulin Ratio 1.40 Digoxin Level 0.4 L Lab Scanned Report REFERENCE LAB Medications Medication Current Medications Aspirin (Halfprin) 81 mg DAILY PO Last administered on 04/18/19at 08:32; Admin Dose 81 MG; Start 04/13/19 at 09:00 Atorvastatin Calcium (Lipitor) 20 mg QHS PO Last administered on 04/17/19at 20:18; Admin Dose 20 MG; Start 04/12/19 at 21:00 Ondansetron HCl (Zofran Inj) 4 mg Q6H PRN IV NAUSEA AND/OR VOMITING Last administered on 04/15/19at 16:27; Admin Dose 4 MG; Start 04/12/19 at 13:00 Albuterol (Proventil 0.083% (Neb)) 2.5 mg Q2H RESP THERAPY PRN NEB SHORTNESS OF BREATH; Start 04/12/19 at 13:00 Acetaminophen (Tylenol Tab) 650 mg Q6H PRN PO PAIN LEVEL 1-3 OR FEVER; Start 04/12/19 at 13:00 Docusate Sodium (Colace) 100 mg Q12H PRN PO CONSTIPATION; Start 04/12/19 at 13:00 Magnesium Hydroxide (Milk Of Mag) 30 ml DAILY PRN PO CONSTIPATION; Start 04/12/19 at 13:00 Pantoprazole (Protonix Tab) 40 mg DAILY@06 PO Last administered on 04/18/19at 06:19; Admin Dose 40 MG; Start 04/13/19 at 06:00 Apixaban (Eliquis) 5 mg BID PO Last administered on 04/18/19at 08:32; Admin Dose 5 MG; Start 04/12/19 at 21:00 Metoprolol Tartrate (Lopressor) 5 mg Q2H PRN IV heart rate over 110 Last administered on 04/15/19at 09:11; Admin Dose 5 MG; Start 04/13/19 at 09:30 Morphine Sulfate (morphine) 2 mg Q4H PRN IV SEVERE PAIN LEVEL 7-10 Last administered on 04/14/19at 14:56; Admin Dose 2 MG; Start 04/13/19 at 23:30 IV Flush (NS 10 ml) 10 ml Q8 PRN IV IV PROTOCOL; Start 04/14/19 at 15:00 Lorazepam (Ativan) 1 mg Q6H PRN IV anxiety; Start 04/14/19 at 15:00 Miscellaneous Information (Pending [facility] Order For Wound Care) This patient urias... PRN PRN XX WOUND CARE; Start 04/14/19 at 21:00 Amiodarone HCl (Cordarone) 400 mg TID PO Last administered on 04/17/19at 13:10; Admin Dose 400 MG; Start 04/16/19 at 13:00; Status Hold Metoprolol Succinate (Toprol Xl) 50 mg BID PO Last administered on 04/18/19at 08:32; Admin Dose 50 MG; Start 04/16/19 at 21:00 Bumetanide (Bumex) 1 mg DAILY IV Last administered on 04/18/19at 08:32; Admin Dose 1 MG; Start 7/28/19 at 09:00 RYAN VICENTE MD Apr 18, 2019 17:16
[2019-04-18] MEDS: ATORVASTATIN 20 MG TAB PO SCH (20:16)
[2019-04-19] VITALS (10 sets, daily range): BP systolic 110–135; BP diastolic 72–81; PULSE 50–90; RESP 18–19
[2019-04-19] MEDS: PANTOPRAZOLE (EC) 40 MG TAB PO SCH (06:08)
[2019-04-19] MEDS: BUMETANIDE 1 MG TAB PO SCH ×2 (06:08→08:16)
--- NOTE | 2019-04-19 06:27 | PN ---
DATE: 04/18/2019 SUBJECTIVE: The patient is alert, comfortable on nasal cannula. No fevers overnight. WBC 8.9, neutrophils 77.3, BUN 53, creatinine 1.55. PHYSICAL EXAMINATION: GENERAL: Well-developed, elderly [place] man who is alert, in no distress. HEENT: Head atraumatic, normocephalic. NECK: Supple. CHEST: Rise symmetrical. Breath sounds diminished to bases. HEART: S1, S2. ABDOMEN: Soft, bowel sounds present. ASSESSMENT: 1. Acute hypoxemic respiratory failure secondary to congestive heart failure exacerbation. 2. Status post rapid atrial fibrillation. 3. Non-ST elevation myocardial infarction. 4. Acute on chronic kidney disease. PLAN: The patient is doing better. Continue present care. Follow cardiology, pulmonary recommendat ions. Dictated By: TISHA GO [employer] MARKETING MANAGER for LOREE MERRITT MD NI/NTS Conf#: [id number] DID#: [id number]
[2019-04-19] MEDS: APIXABAN 5 MG TABLET PO SCH ×2 (08:16→20:09)
[2019-04-19] MEDS: METOPROLOL (XL) 50 MG TAB PO SCH (08:16)
[2019-04-19] MEDS: ASPIRIN (EC) 81 MG TAB PO SCH (08:17)
--- NOTE | 2019-04-19 09:02 | CONS ---
Assessment/Plan Cardiology NYHA: IV Heart Failure Type: Acute Heart Failure Type: Both Assessment/Plan Hospital Course (Demo Recall) 63 yo with acute congestive heart failure, possible pneumonia, and rapid atrial fibrillation. Impression: Atrial fib, rapid, now rate controlled Acute systolic and diastolic heart failure, unclear duration of cardiomyopathy, decompensated but improved Possible pneumonia H/o hypertension Renal insufficiency, unclear if acute or chronic, with improvement Hypokalemia Recommendations: Continue metoprolol succinate, will further uptitrate to 100 mg po bid No diltiazem due to low EF, preferably no digoxin due to renal insufficiency As outpatient or when pulmonary status is better, would put him through a nuclear stress test to evaluate for extent of ischemia, and potential cath once renal function has stabilized Eliquis for CVA PX No TRACIE/ARB due to renal insufficiency for now, but once renal status stabilizes can add this Also -- discussed that restaurant food/takeout is very high in sodium. He is on a low sodium diet here. Nutrition consult ordered to further educate patient, and I have put in an order that he is to have no outside food brought in. Dr. Tsai to round this weekend Consultation Date/Type/Reason Admit Date/Time Apr 12, 2019 at 12:21 Initial Consult Date 04/13/19 Type of Consult Cardiology Requesting Provider: MARVIN FOX MD Date/Time of Note DATE: 04/19/19 TIME: 08:58 24 HR Interval Summary Free Text/Dictation This am states he's breathing better, still requires NC O2. I walk in to him eating from a styrofoam container with rice and duck, apparently friends have been bringing in [place] and other takeout food. He has no understanding that this is not good for his heart Exam/Review of Systems Vital Signs Vitals Vital Signs Date Temp Pulse Resp B/P (MAP) Pulse Ox O2 O2 Flow FiO2 Time Delivery Rate 04/19/19 98.2 50 19 135/80 97 07:21 (98) 04/19/19 6.0 06:05 04/19/19 40 05:22 04/18/19 Nasal 15:22 Cannula Intake and Output 04/18/19 04/18/19 04/19/19 1515:00 23:00 07:00 IntakeIntake Total 720 ml 800 ml 200 ml OutputOutput Total 1650 ml 100 ml 500 ml BalanceBalance -930 ml 700 ml -300 ml Exam Constitutional: alert, oriented, well developed Psych: nl mood/affect Head: normocephalic, atraumatic Eyes: nl conjunctiva, EOMI, nl lids, nl sclera ENMT: nl external ears & nose, nl lips & teeth, nl nasal mucosa & septum Neck: supple, non-tender Respiratory: clear to auscultation, normal air movement Cardiovascular: nl pulses, irregular rhythm; No murmurs/extra sounds Gastrointestinal: soft, nl liver, spleen, non-tender Musculoskeletal: nl extremities to inspection Extremities: normal pulses Neurological: nl mental status, nl speech Skin: No rash or lesions Lymph: nl lymph nodes Labs Result Diagram: 04/19/19 0633 04/19/19 0633 Results 24hrs Laboratory Tests Test 04/18/19 12:20 04/19/19 06:33 Lab Scanned Report REFERENCE LAB White Blood Count 9.4 Red Blood Count 4.00 L Hemoglobin 11.0 L Hematocrit 36.4 L Mean Corpuscular Volume 91.0 Mean Corpuscular Hemoglobin 27.5 L Mean Corpuscular Hemoglobin Concent 30.2 L Red Cell Distribution Width 15.2 H Platelet Count 137 L Mean Platelet Volume 10.1 Immature Granulocytes % 0.300 Neutrophils % 75.9 Lymphocytes % 9.2 L Monocytes % 12.1 H Eosinophils % 2.2 Basophils % 0.3 Nucleated Red Blood Cells % 0.0 Immature Granulocytes # 0.030 Neutrophils # 7.1 Lymphocytes # 0.9 Monocytes # 1.1 H Eosinophils # 0.2 Basophils # 0.0 Nucleated Red Blood Cells # 0.0 Sodium Level 140 Potassium Level 3.2 L Chloride Level 93 L Carbon Dioxide Level 38 H Anion Gap 9 Blood Urea Nitrogen 49 H Creatinine 1.48 H Est Glomerular Filtrat Rate mL/min 48 L Glucose Level 105 Calcium Level 8.8 Magnesium Level 2.1 Total Bilirubin 1.4 H Direct Bilirubin 0.00 Indirect Bilirubin 1.4 H Aspartate Amino Transf (AST/SGOT) 162 H Alanine Aminotransferase (ALT/SGPT) 679 H Alkaline Phosphatase 114 Total Protein 6.4 Albumin 3.5 Globulin 2.90 Albumin/Globulin Ratio 1.20 Medications Medications Current Medications Aspirin (Halfprin) 81 mg DAILY PO Last administered on 04/19/19at 08:17; Admin Dose 81 MG; Start 04/13/19 at 09:00 Atorvastatin Calcium (Lipitor) 20 mg QHS PO Last administered on 04/18/19at 20:16; Admin Dose 20 MG; Start 04/12/19 at 21:00 Ondansetron HCl (Zofran Inj) 4 mg Q6H PRN IV NAUSEA AND/OR VOMITING Last administered on 04/15/19 16:27; Admin Dose 4 MG; Start 04/12/19 at 13:00 Albuterol (Proventil 0.083% (Neb)) 2.5 mg Q2H RESP THERAPY PRN NEB SHORTNESS OF BREATH; Start 04/12/19 at 13:00 Acetaminophen (Tylenol Tab) 650 mg Q6H PRN PO PAIN LEVEL 1-3 OR FEVER; Start 04/12/19 at 13:00 Docusate Sodium (Colace) 100 mg Q12H PRN PO CONSTIPATION; Start 04/12/19 at 13:00 Magnesium Hydroxide (Milk Of Mag) 30 ml DAILY PRN PO CONSTIPATION; Start 04/12/19 at 13:00 Pantoprazole (Protonix Tab) 40 mg DAILY@06 PO Last administered on 04/19/19at 06:08; Admin Dose 40 MG; Start 04/13/19 at 06:00 Apixaban (Eliquis) 5 mg BID PO Last administered on 04/19/19 08:16; Admin Dose 5 MG; Start 04/12/19 at 21:00 Metoprolol Tartrate (Lopressor) 5 mg Q2H PRN IV heart rate over 110 Last administered on 04/15/19at 09:11; Admin Dose 5 MG; Start 04/13/19 at 09:30 Morphine Sulfate (morphine) 2 mg Q4H PRN IV SEVERE PAIN LEVEL 7-10 Last a dministered on 04/14/19at 14:56; Admin Dose 2 MG; Start 04/13/19 at 23:30 IV Flush (NS 10 ml) 10 ml Q8 PRN IV IV PROTOCOL; Start 04/14/19 at 15:00 Lorazepam (Ativan) 1 mg Q6H PRN IV anxiety; Start 04/14/19 at 15:00 [facility] This patient urias... PRN PRN XX WOUND CARE; Start 04/14/19 at 21:00 Amiodarone HCl (Cordarone) 400 mg TID PO Last administered on 04/17/19at 13:10; Admin Dose 400 MG; Start 04/16/19 at 13:00; Status Hold Bumetanide (Bumex) 1 mg DAILY PO Last administered on 04/19/19at 08:16; Admin Dose 1 MG; Start 04/19/19 at 07:00 Metoprolol Succinate (Toprol Xl) 100 mg BID PO ; Start 04/19/19 at 21:00 CATHERINE DEL ANGEL Apr 19, 2019 09:02
[2019-04-19] MEDS ORDERED: POTASSIUM CHLORIDE 20 MEQ POWDER FOR ORAL SOLN PO ONE (11:30)
--- NOTE | 2019-04-19 11:33 | PN ---
Date/Time of Note Date/Time of Note DATE: 04/19/19 TIME: 11:31 Objective Vitals Vital Signs Date Temp Pulse Resp B/P (MAP) Pulse Ox O2 O2 Flow FiO2 Time Delivery Rate 04/19/19 98.5 64 18 123/76 100 11:22 (92) 04/19/19 Nasal 08:00 Cannula 04/19/19 6.0 06:05 04/19/19 40 05:22 Intake and Output 04/18/19 04/18/19 04/19/19 1515:00 23:00 07:00 IntakeIntake Total 720 ml 800 ml 200 ml OutputOutput Total 1650 ml 100 ml 500 ml BalanceBalance -930 ml 700 ml -300 ml Results Result Diagram: 04/19/1963204/19/19632 Medications Medications Current Medications Aspirin (Halfprin) 81 mg DAILY PO Last administered on 04/19/19at 08:17; Admin Dose 81 MG; Start 04/13/19 at 09:00 Atorvastatin Calcium (Lipitor) 20 mg QHS PO Last administered on 04/18/19at 20:16; Admin Dose 20 MG; Start 04/12/19 at 21:00 Ondansetron HCl (Zofran Inj) 4 mg Q6H PRN IV NAUSEA AND/OR VOMITING Last administered on 04/15/19at 16:27; Admin Dose 4 MG; Start 04/12/19 at 13:00 Albuterol (Proventil 0.083% (Neb)) 2.5 mg Q2H RESP THERAPY PRN NEB SHORTNESS OF BREATH; Start 04/12/19 at 13:00 Acetaminophen (Tylenol Tab) 650 mg Q6H PRN PO PAIN LEVEL 1-3 OR FEVER; Start 04/12/19 at 13:00 Docusate Sodium (Colace) 100 mg Q12H PRN PO CONSTIPATION; Start 04/12/19 at 13:00 Magnesium Hydroxide (Milk Of Mag) 30 ml DAILY PRN PO CONSTIPATION; Start 04/12/19 at 13:00 Pantoprazole (Protonix Tab) 40 mg DAILY@06 PO Last administered on 04/19/19at 06:08; Admin Dose 40 MG; Start 04/13/19 at 06:00 Apixaban (Eliquis) 5 mg BID PO Last administered on 04/19/19at 08:16; Admin Dose 5 MG; Start 04/12/19 at 21:00 Metoprolol Tartrate (Lopressor) 5 mg Q2H PRN IV heart rate over 110 Last administered on 04/15/19at 09:11; Admin Dose 5 MG; Start 04/13/19 at 09:30 Morphine Sulfate (morphine) 2 mg Q4H PRN IV SEVERE PAIN LEVEL 7-10 Last administered on 04/14/19at 14:56; Admin Dose 2 MG; Start 04/13/19 at 23:30 IV Flush (NS 10 ml) 10 ml Q8 PRN IV IV PROTOCOL; Start 04/14/19 at 15:00 Lorazepam (Ativan) 1 mg Q6H PRN IV anxiety; Start 04/14/19 at 15:00 [facility] This patient urias... PRN PRN XX WOUND CARE; Start 04/14/19 at 21:00 Amiodarone HCl (Cordarone) 400 mg TID PO Last administered on 04/17/19at 13:10; Admin Dose 400 MG; Start 04/16/19 at 13:00; Status Hold Bumetanide (Bumex) 1 mg DAILY PO Last administered on 04/19/19at 08:16; Admin Dose 1 MG; Start 04/19/19 at 07:00 Metoprolol Succinate (Toprol Xl) 100 mg BID PO ; Start 04/19/19 at 21:00 Potassium Chloride (Potassium Chloride Pwd/Soln) 40 meq ONCE ONCE PO ; Start 04/19/19 at 11:30; Stop 04/19/19 at 11:31 VTE Prophylaxis Risk score (from Nsg)>0 risk: 3 SCD applied (from Nsg): No SCD contraindication: other Lines/Catheters IV Catheter Type: Cárdenas in Place: No Assessment/Plan Hospital Course Subjective Patient doing much better patient states he feels well, but still needs oxygen Objective Physical exam General: Patient is laying in bed and answers questions appropriately Mentation: Patient is alert and oriented 4, Head: Normocephalic atraumatic Eyes: EOMI, pupils reactive to light Neck: Supple, nontender, midline Respiratory: Mildly coarse to auscultation bilaterally Cardiovascular: regular rate, no obvious murmurs Gastrointestinal: non-tender to palpation, bowel sounds heard. Neurological: Moves all extremities spontaneously Skin: No new skin lesions Assessment/Plan 1. Acute hypoxic respiratory failure- stable - patient is doing well on NC. Currently on 6L at 45%. - Pulm consultation appreciated. - Nebs PRN 2. Acute systolic congestive heart failure- improving - BNP noted - Cardiology on board and appreciate recommendations - Nephrology on board for management of diuretics. Will continue on Bumex - monitor I/O and daily weights - ECHO results noted with low EF 3. New onset afib with RVR- improving - patient now rate controlled after given digoxin - continue on PO amiodarone - Cardiology consultation appreciated - On Eliquis 4. DANYA- improving - Nephrology consultation appreciated - most likely secondary to ATN in setting of afib with RVR, hypoxia, and cardiorenal - US results noted - will renally dose medications 5. Bilateral pneumonia - seen on CXR - ID consultation appreciated and d/c antibiotics . will monitor off antibiotics per ID recs - continue Neb tx PRN 6. Elevated trop - most likely type 2 demand - will need stress test when stable either inpatient or outpatient and possible PCI in future when renal function improves - no chest pain noted 7. Elevated LFT- improving - Liver US noted - most likely due to congestion - no abdominal pain noted 8. Sleep apnea - on BIPAP qhs 9. HTN - continue home medications and adjust as needed 10. Sepsis secondary to PNA- improving - WBC nl and remains afebrile 11. Disposition -Cardiology recommendations appreciated, questionable timing of stress test v ersus cardiac cath in the future. LUIS CARLOS KENYON Apr 19, 2019 11:32
--- NOTE | 2019-04-19 12:57 | CONS ---
Consult Date/Type/Reason Admit Date/Time Apr 12, 2019 at 12:21 Initial Consult Date 04/13/19 Type of Consult Pulmonary Requesting Provider: MARVIN FOX MD Date/Time of Note DATE: 04/19/19 TIME: 12:54 Subjective Slowly improving Objective Vital Signs Date Temp Pulse Resp B/P (MAP) Pulse Ox O2 O2 Flow FiO2 Time Delivery Rate 04/19/19 98.5 64 18 123/76 100 11:22 (92) 04/19/19 Nasal 08:00 Cannula 04/19/19 6.0 06:05 04/19/19 40 05:22 Intake and Output 04/18/19 04/18/19 04/19/19 1515:00 23:00 07:00 IntakeIntake Total 720 ml 800 ml 200 ml OutputOutput Total 1650 ml 100 ml 500 ml BalanceBalance -930 ml 700 ml -300 ml Exam GENERAL: Well-nourished well-developed gentleman comfortable at rest VITAL SIGNS: per chart NECK: Supple. No JVD or lymphadenopathy. CARDIAC EXAM: S1, S2. No added sounds or murmurs. CHEST: Diminished air entry at bases ABDOMEN: Soft, nontender. No guarding or rebound. EXTREMITIES: No cyanosis, clubbing or edema. NEUROLOGIC: Generalized weakness. No focal deficits. Vent Setting Fraction of Inspired Oxygen pe: 44 Results/Medications Result Diagram: 04/19/19 0633 04/19/19 0633 Results 24 hrs Laboratory Tests Test 04/19/19 06:33 White Blood Count 9.4 Red Blood Count 4.00 L Hemoglobin 11.0 L Hematocrit 36.4 L Mean Corpuscular Volume 91.0 Mean Corpuscular Hemoglobin 27.5 L Mean Corpuscular Hemoglobin Concent 30.2 L Red Cell Distribution Width 15.2 H Platelet Count 137 L Mean Platelet Volume 10.1 Immature Granulocytes % 0.300 Neutrophils % 75.9 Lymphocytes % 9.2 L Monocytes % 12.1 H Eosinophils % 2.2 Basophils % 0.3 Nucleated Red Blood Cells % 0.0 Immature Granulocytes # 0.030 Neutrophils # 7.1 Lymphocytes # 0.9 Monocytes # 1.1 H Eosinophils # 0.2 Basophils # 0.0 Nucleated Red Blood Cells # 0.0 Sodium Level 140 Potassium Level 3.2 L Chloride Level 93 L Carbon Dioxide Level 38 H Anion Gap 9 Blood Urea Nitrogen 49 H Creatinine 1.48 H Est Glomerular Filtrat Rate mL/min 48 L Glucose Level 105 Calcium Level 8.8 Magnesium Level 2.1 Total Bilirubin 1.4 H Direct Bilirubin 0.00 Indirect Bilirubin 1.4 H Aspartate Amino Transf (AST/SGOT) 162 H Alanine Aminotransferase (ALT/SGPT) 679 H Alkaline Phosphatase 114 Total Protein 6.4 Albumin 3.5 Globulin 2.90 Albumin/Globulin Ratio 1.20 Medications Current Medications Aspirin (Halfprin) 81 mg DAILY PO Last administered on 04/19/19 08:17; Admin Dose 81 MG; Start 04/13/19 at 09:00 Atorvastatin Calcium (Lipitor) 20 mg QHS PO Last administered on 04/18/19 20:16; Admin Dose 20 MG; Start 04/12/19 at 21:00 Ondansetron HCl (Zofran Inj) 4 mg Q6H PRN IV NAUSEA AND/OR VOMITING Last administered on 04/15/19 16:27; Admin Dose 4 MG; Start 04/12/19 at 13:00 Albuterol (Proventil 0.083% (Neb)) 2.5 mg Q2H RESP THERAPY PRN NEB SHORTNESS OF BREATH; Start 04/12/19 at 13:00 Acetaminophen (Tylenol Tab) 650 mg Q6H PRN PO PAIN LEVEL 1-3 OR FEVER; Start 04/12/19 at 13:00 Docusate Sodium (Colace) 100 mg Q12H PRN PO CONSTIPATION; Start 04/12/19 at 13:00 Magnesium Hydroxide (Milk Of Mag) 30 ml DAILY PRN PO CONSTIPATION; Start 04/12/19 at 13:00 Pantoprazole (Protonix Tab) 40 mg DAILY@06 PO Last administered on 04/19/19 06:08; Admin Dose 40 MG; Start 04/13/19 at 06:00 Apixaban (Eliquis) 5 mg BID PO Last administered on 04/19/19 08:16; Admin Dose 5 MG; Start 04/12/19 at 21:00 Metoprolol Tartrate (Lopressor) 5 mg Q2H PRN IV heart rate over 110 Last administered on 04/15/19 09:11; Admin Dose 5 MG; Start 04/13/19 at 09:30 Morphine Sulfate (morphine) 2 mg Q4H PRN IV SEVERE PAIN LEVEL 7-10 Last administered on 7/25/19at 14:56; Admin Dose 2 MG; Start 04/13/19 at 23:30 IV Flush (NS 10 ml) 10 ml Q8 PRN IV IV PROTOCOL; Start 04/14/19 at 15:00 Lorazepam (Ativan) 1 mg Q6H PRN IV anxiety; Start 04/14/19 at 15:00 Miscellaneous Information (Pending [facility] Order For Wound Care) This patient urias... PRN PRN XX WOUND CARE; Start 04/14/19 at 21:00 Amiodarone HCl (Cordarone) 400 mg TID PO Last administered on 04/17/19at 13:10; Admin Dose 400 MG; Start 04/16/19 at 13:00; Status Hold Bumetanide (Bumex) 1 mg DAILY PO Last administered on 04/19/19at 08:16; Admin Dose 1 MG; Start 04/19/19 at 07:00 Metoprolol Succinate (Toprol Xl) 100 mg BID PO ; Start 04/19/19 at 21:00 Assessment/Plan Hospital Course (Demo Recall) IMP: 1. ADHF 2. HFrEF 3. ARF--likely cardiorenal 4. Afib with RVR 5. Ischemic Hepatopathy 2/2 #1 6. Hypoxemic Resp Failure 2/2 #1 RECS: 1. Continue diuresis until creatine bumps; follow I/O's closely 2. Amiodarone PO, cardiac recs. 3. De-escalate abx--> off 4. Titrate FiO2--> will try to transition to NC 5. Mobilize OOB dc planning [facility] HANSON MD[facility] Apr 19, 2019 12:57
--- NOTE | 2019-04-19 13:03 | CONS ---
Assessment/Plan Assessment/Plan Hospital Course (Demo Recall) SUBJECTIVE: The patient is alert looks comfortable. No fevers overnight. PHYSICAL EXAMINATION: GENERAL: Well-developed, elderly [place] man who is alert, in no distress. HEENT: Head atraumatic, normocephalic. NECK: Supple. CHEST: Rise symmetrical. Breath sounds diminished to bases. HEART: S1, S2. ABDOMEN: Soft, bowel sounds present. ASSESSMENT: 1. Acute hypoxemic respiratory failure secondary to congestive heart failure exacerbation. 2. Status post rapid atrial fibrillation. 3. Non-ST elevation myocardial infarction. 4. Acute on chronic kidney disease. PLAN: Stable. Continue present care. Follow cardiology, pulmonary recommendations. VQ scan noted Consultation Date/Type/Reason Admit Date/Time Apr 12, 2019 at 12:21 Initial Consult Date 04/13/19 Type of Consult id Requesting Provider: MARVIN FOX MD Date/Time of Note DATE: 04/19/19 TIME: 13:02 Exam/Review of Systems Exam Vitals Vital Signs Date Temp Pulse Resp B/P (MAP) Pulse Ox O2 O2 Flow FiO2 Time Delivery Rate 04/19/19 98.5 64 18 123/76 100 11:22 (92) 04/19/19 Nasal 08:00 Cannula 04/19/19 6.0 06:05 04/19/19 40 05:22 Intake and Output 04/18/19 04/18/19 04/19/19 1515:00 23:00 07:00 IntakeIntake Total 720 ml 800 ml 200 ml OutputOutput Total 1650 ml 100 ml 500 ml BalanceBalance -930 ml 700 ml -300 ml Results Result Diagram: 04/19/19 0633 04/19/19 0633 Results 24hrs Laboratory Tests Test 04/19/19 06:33 White Blood Count 9.4 Red Blood Count 4.00 L Hemoglobin 11.0 L Hematocrit 36.4 L Mean Corpuscular Volume 91.0 Mean Corpuscular Hemoglobin 27.5 L Mean Corpuscular Hemoglobin Concent 30.2 L Red Cell Distribution Width 15.2 H Platelet Count 137 L Mean Platelet Volume 10.1 Immature Granulocytes % 0.300 Neutrophils % 75.9 Lymphocytes % 9.2 L Monocytes % 12.1 H Eosinophils % 2.2 Basophils % 0.3 Nucleated Red Blood Cells % 0.0 Immature Granulocytes # 0.030 Neutrophils # 7.1 Lymphocytes # 0.9 Monocytes # 1.1 H Eosinophils # 0.2 Basophils # 0.0 Nucleated Red Blood Cells # 0.0 Sodium Level 140 Potassium Level 3.2 L Chloride Level 93 L Carbon Dioxide Level 38 H Anion Gap 9 Blood Urea Nitrogen 49 H Creatinine 1.48 H Est Glomerular Filtrat Rate mL/min 48 L Glucose Level 105 Calcium Level 8.8 Magnesium Level 2.1 Total Bilirubin 1.4 H Direct Bilirubin 0.00 Indirect Bilirubin 1.4 H Aspartate Amino Transf (AST/SGOT) 162 H Alanine Aminotransferase (ALT/SGPT) 679 H Alkaline Phosphatase 114 Total Protein 6.4 Albumin 3.5 Globulin 2.90 Albumin/Globulin Ratio 1.20 Medications Medication Current Medications Aspirin (Halfprin) 81 mg DAILY PO Last administered on 04/19/19at 08:17; Admin Dose 81 MG; Start 04/13/19 at 09:00 Atorvastatin Calcium (Lipitor) 20 mg QHS PO Last administered on 04/18/19at 20:16; Admin Dose 20 MG; Start 04/12/19 at 21:00 Ondansetron HCl (Zofran Inj) 4 mg Q6H PRN IV NAUSEA AND/OR VOMITING Last administered on 04/15/19at 16:27; Admin Dose 4 MG; Start 04/12/19 at 13:00 Albuterol (Proventil 0.083% (Neb)) 2.5 mg Q2H RESP THERAPY PRN NEB SHORTNESS OF BREATH; Start 04/12/19 at 13:00 Acetaminophen (Tylenol Tab) 650 mg Q6H PRN PO PAIN LEVEL 1-3 OR FEVER; Start 04/12/19 at 13:00 Docusate Sodium (Colace) 100 mg Q12H PRN PO CONSTIPATION; Start 04/12/19 at 1 3:00 Magnesium Hydroxide (Milk Of Mag) 30 ml DAILY PRN PO CONSTIPATION; Start 04/12/19 at 13:00 Pantoprazole (Protonix Tab) 40 mg DAILY@06 PO Last administered on 04/19/19at 06:08; Admin Dose 40 MG; Start 04/13/19 at 06:00 Apixaban (Eliquis) 5 mg BID PO Last administered on 04/19/19at 08:16; Admin Dose 5 MG; Start 04/12/19 at 21:00 Metoprolol Tartrate (Lopressor) 5 mg Q2H PRN IV heart rate over 110 Last administered on 04/15/19at 09:11; Admin Dose 5 MG; Start 04/13/19 at 09:30 Morphine Sulfate (morphine) 2 mg Q4H PRN IV SEVERE PAIN LEVEL 7-10 Last administered on 04/14/19at 14:56; Admin Dose 2 MG; Start 04/13/19 at 23:30 IV Flush (NS 10 ml) 10 ml Q8 PRN IV IV PROTOCOL; Start 04/14/19 at 15:00 Lorazepam (Ativan) 1 mg Q6H PRN IV anxiety; Start 04/14/19 at 15:00 Miscellaneous Information (Pending [facility] Order For Wound Care) This patient urias... PRN PRN XX WOUND CARE; Start 04/14/19 at 21:00 Amiodarone HCl (Cordarone) 400 mg TID PO Last administered on 04/17/19at 13:10; Admin Dose 400 MG; Start 04/16/19 at 13:00; Status Hold Bumetanide (Bumex) 1 mg DAILY PO Last administered on 04/19/19at 08:16; Admin Dose 1 MG; Start 04/19/19 at 07:00 Metoprolol Succinate (Toprol Xl) 100 mg BID PO ; Start 04/19/19 at 21:00 TISHA GO NP Apr 19, 2019 13:03
--- NOTE | 2019-04-19 13:47 | CONS ---
Assessment/Plan Assessment/Plan Assessment/Plan (Daily) 1. Oliguric Acute kidney injury on CKD 2/2 Hemodynamics from CHF and atrial fibrillation RVR , also contributing ATN from sepsis 2. acute hypoxic respiratory failure requiring BIPAP due to Bilateral PNA and CHF 3. sepsis due to Bilateral PNA 4. Acute CHF exacerbation with EF 20% on ECHO, most likely new onset since pt has been denying any H/o CHF 5. New onset afib with RVR- on cardizem gtt 6. H/o HTN 7. H/o Sleep apnea 8. H/o Possible CKD but pt has been denying it.. His Renal Us showed normal echogenicity of kidneys but kidneys are small in size, The right kidney measures 9.5 cm. The left kidney measures 9.2 cm. Plan: -BUN/Cr 49/1.48,K 3.2, HCo3 38- , bumex to 1mg po daily . Monitor electrolytes and replace as needed IV abx for sepsis and PNA, renally dose all abx , ID following Echo showed EF 20% wiht Moderate MR, moderate to severe TR, Enlarged RV and RVSP 52 Amiodarone 400mg PO TID and metoprolol 50mg PO BID for rate conrol, eliquis for anticoagulation will follow up Consultation Date/Type/Reason Admit Date/Time Apr 12, 2019 at 12:21 Initial Consult Date 04/13/19 Type of Consult NEPHROLOGY Requesting Provider: MARVIN FOX MD Date/Time of Note DATE: 04/19/19 TIME: 13:47 Exam/Review of Systems Exam Vitals Vital Signs Date Temp Pulse Resp B/P (MAP) Pulse Ox O2 O2 Flow FiO2 Time Delivery Rate 04/19/19 98.5 64 18 123/76 100 11:22 (92) 04/19/19 Nasal 08:00 Cannula 04/19/19 6.0 06:05 04/19/19 40 05:22 Intake and Output 04/18/19 04/18/19 04/19/19 1515:00 23:00 07:00 IntakeIntake Total 720 ml 800 ml 200 ml OutputOutput Total 1650 ml 100 ml 500 ml BalanceBalance -930 ml 700 ml -300 ml Results Result Diagram: 04/19/19 0633 04/19/19 0633 Results 24hrs Laboratory Tests Test 04/19/19 06:33 White Blood Count 9.4 Red Blood Count 4.00 L Hemoglobin 11.0 L Hematocrit 36.4 L Mean Corpuscular Volume 91.0 Mean Corpuscular Hemoglobin 27.5 L Mean Corpuscular Hemoglobin Concent 30.2 L Red Cell Distribution Width 15.2 H Platelet Count 137 L Mean Platelet Volume 10.1 Immature Granulocytes % 0.300 Neutrophils % 75.9 Lymphocytes % 9.2 L Monocytes % 12.1 H Eosinophils % 2.2 Basophils % 0.3 Nucleated Red Blood Cells % 0.0 Immature Granulocytes # 0.030 Neutrophils # 7.1 Lymphocytes # 0.9 Monocytes # 1.1 H Eosinophils # 0.2 Basophils # 0.0 Nucleated Red Blood Cells # 0.0 Sodium Level 140 Potassium Level 3.2 L Chloride Level 93 L Carbon Dioxide Level 38 H Anion Gap 9 Blood Urea Nitrogen 49 H Creatinine 1.48 H Est Glomerular Filtrat Rate mL/min 48 L Glucose Level 105 Calcium Level 8.8 Magnesium Level 2.1 Total Bilirubin 1.4 H Direct Bilirubin 0.00 Indirect Bilirubin 1.4 H Aspartate Amino Transf (AST/SGOT) 162 H Alanine Aminotransferase (ALT/SGPT) 679 H Alkaline Phosphatase 114 Total Protein 6.4 Albumin 3.5 Globulin 2.90 Albumin/Globulin Ratio 1.20 Medications Medication Current Medications Aspirin (Halfprin) 81 mg DAILY PO Last administered on 04/19/19at 08:17; Admin Dose 81 MG; Start 04/13/19 at 09:00 Atorvastatin Calcium (Lipitor) 20 mg QHS PO Last administered on 04/18/19at 20:16; Admin Dose 20 MG; Start 04/12/19 at 21:00 Ondansetron HCl (Zofran Inj) 4 mg Q6H PRN IV NAUSEA AND/OR VOMITING Last administered on 04/15/19at 16:27; Admin Dose 4 MG; Start 04/12/19 at 13:00 Albuterol (Proventil 0.083% (Neb)) 2.5 mg Q2H RESP THERAPY PRN NEB SHORTNESS OF BREATH; Start 04/12/19 at 13:00 Acetaminophen (Tylenol Tab) 650 mg Q6H PRN PO PAIN LEVEL 1-3 OR FEVER; Start 04/12/19 at 13:00 Docusate Sodium (Colace) 100 mg Q12H PRN PO CONSTIPATION; Start 04/12/19 at 13:00 Magnesium Hydroxide (Milk Of Mag) 30 ml DAILY PRN PO CONSTIPATION; Start 04/12/19 at 13:00 Pantoprazole (Protonix Tab) 40 mg DAILY@06 PO Last administered on 04/19/19at 06:08; Admin Dose 40 MG; Start 04/13/19 at 06:00 Apixaban (Eliquis) 5 mg BID PO Last administered on 04/19/19 08:16; Admin Dose 5 MG; Start 04/12/19 at 21:00 Metoprolol Tartrate (Lopressor) 5 mg Q2H PRN IV heart rate over 110 Last administered on 04/15/19 09:11; Admin Dose 5 MG; Start 04/13/19 at 09:30 Morphine Sulfate (morphine) 2 mg Q4H PRN IV SEVERE PAIN LEVEL 7-10 Last a dministered on 04/14/19at 14:56; Admin Dose 2 MG; Start 04/13/19 at 23:30 IV Flush (NS 10 ml) 10 ml Q8 PRN IV IV PROTOCOL; Start 04/14/19 at 15:00 Lorazepam (Ativan) 1 mg Q6H PRN IV anxiety; Start 04/14/19 at 15:00 Miscellaneous Information (Pending [facility] Order For Wound Care) This patient urias... PRN PRN XX WOUND CARE; Start 04/14/19 at 21:00 Amiodarone HCl (Cordarone) 400 mg TID PO Last administered on 04/17/19 13:10; Admin Dose 400 MG; Start 04/16/19 at 13:00; Status Hold Bumetanide (Bumex) 1 mg DAILY PO Last administered on 04/19/19 08:16; Admin Dose 1 MG; Start 04/19/19 at 07:00 Metoprolol Succinate (Toprol Xl) 100 mg BID PO ; Start 04/19/19 at 21:00 RYAN VICENTE MD Apr 19, 2019 13:47
[2019-04-19] MEDS: ATORVASTATIN 20 MG TAB PO SCH (20:09)
[2019-04-19] MEDS: METOPROLOL (XL) 100 MG TAB PO SCH (20:10)
[2019-04-20] VITALS (7 sets, daily range): BP systolic 118–132; BP diastolic 72–85; PULSE 76–88; RESP 18–20
[2019-04-20] MEDS: PANTOPRAZOLE (EC) 40 MG TAB PO SCH (05:43)
[2019-04-20] MEDS: ASPIRIN (EC) 81 MG TAB PO SCH (08:39)
[2019-04-20] MEDS: BUMETANIDE 1 MG TAB PO SCH (08:39)
[2019-04-20] MEDS: APIXABAN 5 MG TABLET PO SCH ×2 (08:39→21:34)
[2019-04-20] MEDS: METOPROLOL (XL) 100 MG TAB PO SCH ×2 (08:40→21:34)
[2019-04-20] MEDS ORDERED: POTASSIUM CHLORIDE (SR) 20 MEQ TAB PO STA (10:09)
--- NOTE | 2019-04-20 10:09 | CONS ---
Assessment/Plan Assessment/Plan Assessment/Plan (Daily) 1. Oliguric Acute kidney injury on CKD 2/2 Hemodynamics from CHF and atrial fibrillation RVR , also contributing ATN from sepsis 2. acute hypoxic respiratory failure requiring BIPAP due to Bilateral PNA and CHF 3. sepsis due to Bilateral PNA 4. Acute CHF exacerbation with EF 20% on ECHO, most likely new onset since pt has been denying any H/o CHF 5. New onset afib with RVR- on cardizem gtt 6. H/o HTN 7. H/o Sleep apnea 8. H/o Possible CKD but pt has been denying it.. His Renal Us showed normal echogenicity of kidneys but kidneys are small in size, The right kidney measures 9.5 cm. The left kidney measures 9.2 cm. Plan: -BUN/Cr 42/1.25, ,K 3.2, HCo3 40- , change bumex to 0.5mg po daily . Monitor electrolytes and replace as needed Echo showed EF 20% wiht Moderate MR, moderate to severe TR, Enlarged RV and RVSP 52 Amiodarone 400mg PO TID and metoprolol 100mg PO BID for rate conrol, eliquis for anticoagulation will follow up Consultation Date/Type/Reason Admit Date/Time Apr 12, 2019 at 12:21 Initial Consult Date 04/13/19 Type of Consult NEPHROLOGY Requesting Provider: MARVIN FOX MD Date/Time of Note DATE: 04/20/19 TIME: 10:09 Exam/Review of Systems Exam Vitals Vital Signs Date Temp Pulse Resp B/P (MAP) Pulse Ox O2 O2 Flow FiO2 Time Delivery Rate 04/20/19 Nasal 6.0 08:42 Cannula 04/20/19 98.1 88 20 123/85 99 07:10 (98) 04/20/19 40 00:20 Intake and Output 04/19/19 04/19/19 04/20/19 1515:00 23:00 07:00 IntakeIntake Total 400 ml 600 ml 560 ml OutputOutput Total 1200 ml 600 ml 400 ml BalanceBalance -800 ml 0 ml 160 ml Exam Constitutional: alert awake communicative Respiratory: decreased BS+, Bibasialr rales Cardiovascular: regular rate and rhythm, nl pulses Gastrointestinal: soft, non-tender Musculoskeletal: muscle weakness, swelling (1-2+ pitting edema ) Extremities: normal pulses Neurological: alert awake, communicative, non focal Results Result Diagram: 04/20/19 0556 04/20/19 0556 Results 24hrs Laboratory Tests Test 04/20/19 05:56 White Blood Count 9.5 Red Blood Count 3.90 L Hemoglobin 10.8 L Hematocrit 35.5 L Mean Corpuscular Volume 91.0 Mean Corpuscular Hemoglobin 27.7 L Mean Corpuscular Hemoglobin Concent 30.4 L Red Cell Distribution Width 15.5 H Platelet Count 134 L Mean Platelet Volume 10.0 Immature Granulocytes % 0.500 H Neutrophils % 72.0 Lymphocytes % 10.9 L Monocytes % 13.6 H Eosinophils % 2.7 Basophils % 0.3 Nucleated Red Blood Cells % 0.0 Immature Granulocytes # 0.050 H Neutrophils # 6.8 Lymphocytes # 1.0 Monocytes # 1.3 H Eosinophils # 0.3 Basophils # 0.0 Nucleated Red Blood Cells # 0.0 Sodium Level 144 Potassium Level 3.4 L Chloride Level 97 Carbon Dioxide Level 40 H Anion Gap 7 Blood Urea Nitrogen 42 H Creatinine 1.25 H Est Glomerular Filtrat Rate mL/min 58 L Glucose Level 94 Calcium Level 8.6 Phosphorus Level 3.1 Magnesium Level 1.9 Medications Medication Current Medications Aspirin (Halfprin) 81 mg DAILY PO Last administered on 04/20/19at 08:39; Admin Dose 81 MG; Start 04/13/19 at 09:00 Atorvastatin Calcium (Lipitor) 20 mg QHS PO Last administered on 04/19/19at 20: 09; Admin Dose 20 MG; Start 04/12/19 at 21:00 Ondansetron HCl (Zofran Inj) 4 mg Q6H PRN IV NAUSEA AND/OR VOMITING Last administered on 04/15/19at 16:27; Admin Dose 4 MG; Start 04/12/19 at 13:00 Albuterol (Proventil 0.083% (Neb)) 2.5 mg Q2H RESP THERAPY PRN NEB SHORTNESS OF BREATH; Start 04/12/19 at 13:00 Acetaminophen (Tylenol Tab) 650 mg Q6H PRN PO PAIN LEVEL 1-3 OR FEVER; Start 04/12/19 at 13:00 Docusate Sodium (Colace) 100 mg Q12H PRN PO CONSTIPATION; Start 04/12/19 at 13:00 Magnesium Hydroxide (Milk Of Mag) 30 ml DAILY PRN PO CONSTIPATION; Start 04/12/19 at 13:00 Pantoprazole (Protonix Tab) 40 mg DAILY@06 PO Last administered on 04/20/19 05:43; Admin Dose 40 MG; Start 04/13/19 at 06:00 Apixaban (Eliquis) 5 mg BID PO Last administered on 04/20/19 08:39; Admin Dose 5 MG; Start 04/12/19 at 21:00 Metoprolol Tartrate (Lopressor) 5 mg Q2H PRN IV heart rate over 110 Last administered on 04/15/19 09:11; Admin Dose 5 MG; Start 04/13/19 at 09:30 Morphine Sulfate (morphine) 2 mg Q4H PRN IV SEVERE PAIN LEVEL 7-10 Last administered on 04/14/19 14:56; Admin Dose 2 MG; Start 04/13/19 at 23:30 IV Flush (NS 10 ml) 10 ml Q8 PRN IV IV PROTOCOL; Start 04/14/19 at 15:00 Lorazepam (Ativan) 1 mg Q6H PRN IV anxiety; Start 04/14/19 at 15:00 Miscellaneous Information (Pending [facility] Order For Wound Care) This patient urias... PRN PRN XX WOUND CARE; Start 04/14/19 at 21:00 Amiodarone HCl (Cordarone) 400 mg TID PO Last administered on 04/17/19at 13:10; Admin Dose 400 MG; Start 04/16/19 at 13:00; Status Hold Bumetanide (Bumex) 1 mg DAILY PO Last administered on 04/20/19 08:39; Admin Dose 1 MG; Start 04/19/19 at 07:00 Metoprolol Succinate (Toprol Xl) 100 mg BID PO Last administered on 04/20/19 08:40; Admin Dose 100 MG; Start 04/19/19 at 21:00 RYAN VICENTE MD Apr 20, 2019 10:09
--- NOTE | 2019-04-20 12:14 | CONS ---
Consult Date/Type/Reason Admit Date/Time Apr 12, 2019 at 12:21 Initial Consult Date 04/13/19 Type of Consult Pulmonary Requesting Provider: MARVIN FOX MD Date/Time of Note DATE: 04/20/19 TIME: 12:14 Subjective No changes. Patient remains stable Objective Vital Signs Date Temp Pulse Resp B/P (MAP) Pulse Ox O2 O2 Flow FiO2 Time Delivery Rate 04/20/19 98.1 77 19 118/81 96 11:43 (93) 04/20/19 Nasal 6.0 08:42 Cannula 04/20/19 40 00:20 Intake and Output 04/19/19 04/19/19 04/20/19 1515:00 23:00 07:00 IntakeIntake Total 400 ml 600 ml 560 ml OutputOutput Total 1200 ml 600 ml 400 ml BalanceBalance -800 ml 0 ml 160 ml Exam GENERAL: Well-nourished well-developed gentleman comfortable at rest VITAL SIGNS: per chart NECK: Supple. No JVD or lymphadenopathy. CARDIAC EXAM: S1, S2. No added sounds or murmurs. CHEST: Diminished air entry at bases ABDOMEN: Soft, nontender. No guarding or rebound. EXTREMITIES: No cyanosis, clubbing or edema. NEUROLOGIC: Generalized weakness. No focal deficits. Vent Setting Fraction of Inspired Oxygen pe: 44 Results/Medications Result Diagram: 04/20/19 0556 04/20/19 0556 Results 24 hrs Laboratory Tests Test 04/20/19 05:56 White Blood Count 9.5 Red Blood Count 3.90 L Hemoglobin 10.8 L Hematocrit 35.5 L Mean Corpuscular Volume 91.0 Mean Corpuscular Hemoglobin 27.7 L Mean Corpuscular Hemoglobin Concent 30.4 L Red Cell Distribution Width 15.5 H Platelet Count 134 L Mean Platelet Volume 10.0 Immature Granulocytes % 0.500 H Neutrophils % 72.0 Lymphocytes % 10.9 L Monocytes % 13.6 H Eosinophils % 2.7 Basophils % 0.3 Nucleated Red Blood Cells % 0.0 Immature Granulocytes # 0.050 H Neutrophils # 6.8 Lymphocytes # 1.0 Monocytes # 1.3 H Eosinophils # 0.3 Basophils # 0.0 Nucleated Red Blood Cells # 0.0 Sodium Level 144 Potassium Level 3.4 L Chloride Level 97 Carbon Dioxide Level 40 H Anion Gap 7 Blood Urea Nitrogen 42 H Creatinine 1.25 H Est Glomerular Filtrat Rate mL/min 58 L Glucose Level 94 Calcium Level 8.6 Phosphorus Level 3.1 Magnesium Level 1.9 Medications Current Medications Aspirin (Halfprin) 81 mg DAILY PO Last administered on 04/20/19 08:39; Admin Dose 81 MG; Start 04/13/19 at 09:00 Atorvastatin Calcium (Lipitor) 20 mg QHS PO Last administered on 04/19/19 20:09; Admin Dose 20 MG; Start 04/12/19 at 21:00 Ondansetron HCl (Zofran Inj) 4 mg Q6H PRN IV NAUSEA AND/OR VOMITING Last administered on 04/15/19 16:27; Admin Dose 4 MG; Start 04/12/19 at 13:00 Albuterol (Proventil 0.083% (Neb)) 2.5 mg Q2H RESP THERAPY PRN NEB SHORTNESS OF BREATH; Start 04/12/19 at 13:00 Acetaminophen (Tylenol Tab) 650 mg Q6H PRN PO PAIN LEVEL 1-3 OR FEVER; Start 04/12/19 at 13:00 Docusate Sodium (Colace) 100 mg Q12H PRN PO CONSTIPATION; Start 04/12/19 at 13:00 Magnesium Hydroxide (Milk Of Mag) 30 ml DAILY PRN PO CONSTIPATION; Start 04/12/19 at 13:00 Pantoprazole (Protonix Tab) 40 mg DAILY@06 PO Last administered on 04/20/19at 05 :43; Admin Dose 40 MG; Start 04/13/19 at 06:00 Apixaban (Eliquis) 5 mg BID PO Last administered on 04/20/19 08:39; Admin Dose 5 MG; Start 04/12/19 at 21:00 Metoprolol Tartrate (Lopressor) 5 mg Q2H PRN IV heart rate over 110 Last administered on 04/15/19at 09:11; Admin Dose 5 MG; Start 04/13/19 at 09:30 Morphine Sulfate (morphine) 2 mg Q4H PRN IV SEVERE PAIN LEVEL 7-10 Last administered on 04/14/19at 14:56; Admin Dose 2 MG; Start 04/13/19 at 23:30 IV Flush (NS 10 ml) 10 ml Q8 PRN IV IV PROTOCOL; Start 04/14/19 at 15:00 Lorazepam (Ativan) 1 mg Q6H PRN IV anxiety; Start 04/14/19 at 15:00 Miscellaneous Information (Pending [facility] Order For Wound Care) This patient urias... PRN PRN XX WOUND CARE; Start 04/14/19 at 21:00 Amiodarone HCl (Cordarone) 400 mg TID PO Last administered on 04/17/19at 13:10; Admin Dose 400 MG; Start 04/16/19 at 13:00; Status Hold Bumetanide (Bumex) 1 mg DAILY PO Last administered on 04/20/19at 08:39; Admin Dose 1 MG; Start 04/19/19 at 07:00 Metoprolol Succinate (Toprol Xl) 100 mg BID PO Last administered on 04/20/19at 08:40; Admin Dose 100 MG; Start 04/19/19 at 21:00 Assessment/Plan Hospital Course (Demo Recall) IMP: 1. ADHF 2. HFrEF 3. ARF--likely cardiorenal 4. Afib with RVR 5. Ischemic Hepatopathy 2/2 #1 6. Hypoxemic Resp Failure 2/2 #1 RECS: 1. Continue diuresis until creatine bumps; follow I/O's closely 2. Amiodarone PO, cardiac recs. 3. De-escalate abx--> off 4. Titrate FiO2--> will try to transition to NC 5. Mobilize OOB dc planning Will likely need home O2 Follow-up with me as an outpatient OMER HANSON MD, [facility] Apr 20, 2019 12:14
[2019-04-20] MEDS: ACETAMINOPHEN 325 MG TAB PO PRN (16:28)
--- NOTE | 2019-04-20 17:40 | PN ---
Date/Time of Note Date/Time of Note DATE: 04/20/19 TIME: 17:39 Objective Vitals Vital Signs Date Temp Pulse Resp B/P (MAP) Pulse Ox O2 O2 Flow FiO2 Time Delivery Rate 04/20/19 98.1 76 20 127/77 98 15:16 (94) 04/20/19 Nasal 6.0 08:42 Cannula 04/20/19 40 00:20 Intake and Output 04/19/19 04/19/19 04/20/19 1515:00 23:00 07:00 IntakeIntake Total 400 ml 600 ml 560 ml OutputOutput Total 1200 ml 600 ml 400 ml BalanceBalance -800 ml 0 ml 160 ml Results Result Diagram: 04/20/19 0556 04/20/19 0556 Medications Medications Current Medications Aspirin (Halfprin) 81 mg DAILY PO Last administered on 04/20/19 08:39; Admin Dose 81 MG; Start 04/13/19 at 09:00 Atorvastatin Calcium (Lipitor) 20 mg QHS PO Last administered on 04/19/19 20:09; Admin Dose 20 MG; Start 04/12/19 at 21:00 Ondansetron HCl (Zofran Inj) 4 mg Q6H PRN IV NAUSEA AND/OR VOMITING Last administered on 04/15/19 16:27; Admin Dose 4 MG; Start 04/12/19 at 13:00 Acetaminophen (Tylenol Tab) 650 mg Q6H PRN PO PAIN LEVEL 1-3 OR FEVER Last administered on 04/20/19 16:28; Admin Dose 650 MG; Start 04/12/19 at 13:00 Docusate Sodium (Colace) 100 mg Q12H PRN PO CONSTIPATION; Start 04/12/19 at 13:00 Magnesium Hydroxide (Milk Of Mag) 30 ml DAILY PRN PO CONSTIPATION; Start 04/12/19 at 13:00 Pantoprazole (Protonix Tab) 40 mg DAILY@06 PO Last administered on 04/20/19 05:43; Admin Dose 40 MG; Start 04/13/19 at 06:00 Apixaban (Eliquis) 5 mg BID PO Last administered on 04/20/19 08:39; Admin Dose 5 MG; Start 04/12/19 at 21:00 Metoprolol Tartrate (Lopressor) 5 mg Q2H PRN IV heart rate over 110 Last administered on 7/26/19at 09:11; Admin Dose 5 MG; Start 04/13/19 at 09:30 Morphine Sulfate (morphine) 2 mg Q4H PRN IV SEVERE PAIN LEVEL 7-10 Last administered on 04/14/19at 14:56; Admin Dose 2 MG; Start 04/13/19 at 23:30 IV Flush (NS 10 ml) 10 ml Q8 PRN IV IV PROTOCOL; Start 04/14/19 at 15:00 Lorazepam (Ativan) 1 mg Q6H PRN IV anxiety; Start 04/14/19 at 15:00 Miscellaneous Information [facility] This patient urias... PRN PRN XX WOUND CARE; Start 04/14/19 at 21:00 Amiodarone HCl (Cordarone) 400 mg TID PO Last administered on 04/17/19at 13:10; Admin Dose 400 MG; Start 04/16/19 at 13:00; Status Hold Bumetanide (Bumex) 1 mg DAILY PO Last administered on 04/20/19at 08:39; Admin Dose 1 MG; Start 04/19/19 at 07:00 Metoprolol Succinate (Toprol Xl) 100 mg BID PO Last administered on 04/20/19at 08:40; Admin Dose 100 MG; Start 04/19/19 at 21:00 Albuterol/ Ipratropium (Duoneb) 3 ml Q6HWA RESP THERAPY HHN ; Start 04/20/19 at 20:00 Albuterol/ Ipratropium (Duoneb) 3 ml Q2H RESP THERAPY PRN HHN shortness of breath; Start 04/20/19 at 15:00 Budesonide (Pulmicort (Neb)) 0.5 mg BID RESP THERAPY HHN ; Start 04/20/19 at 20:00 VTE Prophylaxis Risk score (from Nsg)>0 risk: 5 SCD applied (from Nsg): No SCD contraindication: other Lines/Catheters IV Catheter Type: Cárdenas in Place: No Assessment/Plan Hospital Course Subjective Patient doing much better patient states he feels well, but still needs oxygen Objective Physical exam General: Patient is laying in bed and answers questions appropriately Mentation: Patient is alert and oriented 4, Head: Normocephalic atraumatic Eyes: EOMI, pupils reactive to light Neck: Supple, nontender, midline Respiratory: Mildly coarse to auscultation bilaterally Cardiovascular: regular rate, no obvious murmurs Gastrointestinal: non-tender to palpation, bowel sounds heard. Neurological: Moves all extremities spontaneously Skin: No new skin lesions Assessment/Plan 1. Acute hypoxic respiratory failure- stable - patient is doing well on NC. Currently on 6L at 45%. - Pulm consultation appreciated. - Nebs PRN 2. Acute systolic congestive heart failure- improving - BNP noted - Cardiology on board and appreciate recommendations - Nephrology on board for management of diuretics. Will continue on Bumex - monitor I/O and daily weights - ECHO results noted with low EF 3. New onset afib with RVR- improving - patient now rate controlled after given digoxin - continue on PO amiodarone - Cardiology consultation appreciated - On Eliquis 4. DANYA- improving - Nephrology consultation appreciated - most likely secondary to ATN in setting of afib with RVR, hypoxia, and cardiorenal - US results noted - will renally dose medications 5. Bilateral pneumonia - seen on CXR - ID consultation appreciated and d/c antibiotics . will monitor off antibiotics per ID recs - continue Neb tx PRN 6. Elevated trop - most likely type 2 demand - will need stress test when stable either inpatient or outpatient and possible PCI in future when renal function improves - no chest pain noted 7. Elevated LFT- improving - Liver US noted - most likely due to congestion - no abdominal pain noted 8. Sleep apnea - on BIPAP qhs 9. HTN - continue home medications and adjust as needed 10. Sepsis secondary to PNA- improving - WBC nl and remains afebrile 11. Disposition -Patient continues to improve slowly every day LUIS CARLOS KENYON Apr 20, 2019 17:40
[2019-04-20] MEDS: ALBUTEROL/IPRATROPIUM (NEB) 3 ML AMP HHN SCH (20:44)
[2019-04-20] MEDS: BUDESONIDE (NEB) 0.5MG/2ML AMP HHN SCH (20:44)
[2019-04-20] MEDS: ATORVASTATIN 20 MG TAB PO SCH (21:34)
[2019-04-21] VITALS (7 sets, daily range): BP systolic 110–131; BP diastolic 65–86; PULSE 68–90; RESP 18–24
[2019-04-21] MEDS: PANTOPRAZOLE (EC) 40 MG TAB PO SCH (06:31)
[2019-04-21] MEDS: BUMETANIDE 1 MG TAB PO SCH (08:32)
[2019-04-21] MEDS: APIXABAN 5 MG TABLET PO SCH ×2 (08:33→20:40)
[2019-04-21] MEDS: ASPIRIN (EC) 81 MG TAB PO SCH (08:33)
[2019-04-21] MEDS: METOPROLOL (XL) 100 MG TAB PO SCH ×2 (08:34→20:41)
[2019-04-21] MEDS: BUDESONIDE (NEB) 0.5MG/2ML AMP HHN SCH ×2 (09:55→20:21)
[2019-04-21] MEDS: ALBUTEROL/IPRATROPIUM (NEB) 3 ML AMP HHN SCH ×3 (09:56→20:21)
--- NOTE | 2019-04-21 11:35 | CONS ---
Consult Date/Type/Reason Admit Date/Time Apr 12, 2019 at 12:21 Initial Consult Date 04/13/19 Type of Consult Pulmonary Requesting Provider: MARVIN FOX MD Date/Time of Note DATE: 04/21/19 TIME: 11:34 Subjective Slowly improving with DC O2 requirements. Objective Vital Signs Date Temp Pulse Resp B/P (MAP) Pulse Ox O2 O2 Flow FiO2 Time Delivery Rate 04/21/19 98.3 90 18 115/74 98 Nasal 11:20 (88) Cannula 04/21/19 5.0 09:40 04/21/19 40 03:50 Intake and Output 04/20/19 04/20/19 04/21/19 1515:00 23:00 07:00 IntakeIntake Total 600 ml 250 ml OutputOutput Total 257 ml 2 ml 750 ml BalanceBalance 343 ml -2 ml -500 ml Exam GENERAL: Well-nourished well-developed gentleman comfortable at rest VITAL SIGNS: per chart NECK: Supple. No JVD or lymphadenopathy. CARDIAC EXAM: S1, S2. No added sounds or murmurs. CHEST: Diminished air entry at bases ABDOMEN: Soft, nontender. No guarding or rebound. EXTREMITIES: No cyanosis, clubbing or edema. NEUROLOGIC: Generalized weakness. No focal deficits. Vent Setting Fraction of Inspired Oxygen pe: 44 Results/Medications Result Diagram: 04/21/19 0604/21/19 06 Results 24 hrs Laboratory Tests Test 04/20/19 13:00 04/21/19 06:01 Blood Gas Specimen Source Blood arterial Arterial Blood Date Drawn 04/20/2019 1:05:00 PM Arterial Blood pH (Temp corrected) 7.505 H Arterial Blood pCO2 (Temp correct) 44.0 Arterial Blood pO2 (Temp corrected) 53.1 *L Arterial Blood HCO3 33.9 H Arterial Blood Base Excess 9.8 H Arterial Blood Oxygen Saturation 88.5 L Can Test ACCEPTAB Arterial Blood Gas Puncture Site Left Radial Arterial Blood Carboxyhemoglobin 1.0 Arterial Blood Methemoglobin 0.1 Blood Gas A-a O2 Differential 43.9 H Oxyhemoglobin Percent 87.5 L Blood Gas Temperature 37.0 Blood Gas Modality ROOM AIR FiO2 21.0 Blood Gas Critical Value Read Back JOHN GONZALES Blood Gas Notified Whom TM Blood Gas Notified Time 04/20/2019 1:13:02 PM White Blood Count 9.0 Red Blood Count 3.94 L Hemoglobin 11.0 L Hematocrit 36.6 L Mean Corpuscular Volume 92.9 Mean Corpuscular Hemoglobin 27.9 L Mean Corpuscular Hemoglobin Concent 30.1 L Red Cell Distribution Width 15.7 H Platelet Count 161 # Mean Platelet Volume 10.0 Immature Granulocytes % 0.400 Neutrophils % 69.1 Lymphocytes % 15.1 Monocytes % 11.3 H Eosinophils % 3.8 Basophils % 0.3 Nucleated Red Blood Cells % 0.0 Immature Granulocytes # 0.040 H Neutrophils # 6.2 Lymphocytes # 1.4 Monocytes # 1.0 H Eosinophils # 0.3 Basophils # 0.0 Nucleated Red Blood Cells # 0.0 Sodium Level 144 Potassium Level 4.0 Chloride Level 98 Carbon Dioxide Level 39 H Anion Gap 7 Blood Urea Nitrogen 42 H Creatinine 1.36 H Est Glomerular Filtrat Rate mL/min 53 L Glucose Level 97 Calcium Level 8.8 Phosphorus Level 3.0 Magnesium Level 2.0 Medications Current Medications Aspirin (Halfprin) 81 mg DAILY PO Last administered on 04/21/19 08:33; Admin Dose 81 MG; Start 04/13/19 at 09:00 Atorvastatin Calcium (Lipitor) 20 mg QHS PO Last administered on 04/20/19 21:34; Admin Dose 20 MG; Start 04/12/19 at 21:00 Ondansetron HCl (Zofran Inj) 4 mg Q6H PRN IV NAUSEA AND/OR VOMITING Last administered on 04/15/19 16:27; Admin Dose 4 MG; Start 04/12/19 at 13:00 Acetaminophen (Tylenol Tab) 650 mg Q6H PRN PO PAIN LEVEL 1-3 OR FEVER Last administered on 04/20/19at 16:28; Admin Dose 650 MG; Start 04/12/19 at 13:00 Docusate Sodium (Colace) 100 mg Q12H PRN PO CONSTIPATION; Start 04/12/19 at 13:00 Magnesium Hydroxide (Milk Of Mag) 30 ml DAILY PRN PO CONSTIPATION; Start 04/12/19 at 13:00 Pantoprazole (Protonix Tab) 40 mg DAILY@06 PO Last administered on 04/21/19 06:31; Admin Dose 40 MG; Start 04/13/19 at 06:00 Apixaban (Eliquis) 5 mg BID PO Last administered on 04/21/19 08:33; Admin Dose 5 MG; Start 04/12/19 at 21:00 Metoprolol Tartrate (Lopressor) 5 mg Q2H PRN IV heart rate over 110 Last administered on 04/15/19 09:11; Admin Dose 5 MG; Start 04/13/19 at 09:30 Morphine Sulfate (morphine) 2 mg Q4H PRN IV SEVERE PAIN LEVEL 7-10 Last administered on 04/14/19 14:56; Admin Dose 2 MG; Start 04/13/19 at 23:30 IV Flush (NS 10 ml) 10 ml Q8 PRN IV IV PROTOCOL; Start 04/14/19 at 15:00 Lorazepam (Ativan) 1 mg Q6H PRN IV anxiety; Start 04/14/19 at 15:00 Miscellaneous Information (Pending [facility] Order For Wound Care) This patient urias... PRN PRN XX WOUND CARE; Start 04/14/19 at 21:00 Amiodarone HCl (Cordarone) 400 mg TID PO Last administered on 04/17/19 13:10; Admin Dose 400 MG; Start 04/16/19 at 13:00; Status Hold Metoprolol Succinate (Toprol Xl) 100 mg BID PO Last administered on 04/21/19 08:34; Admin Dose 100 MG; Start 04/19/19 at 21:00 Albuterol/ Ipratropium (Duoneb) 3 ml Q6HWA RESP THERAPY HHN Last administered on 04/21/19 09:56; Admin Dose 3 ML; Start 04/20/19 at 20:00 Albuterol/ Ipratropium (Duoneb) 3 ml Q2H RESP THERAPY PRN HHN shortness of joanne th; Start 04/20/19 at 15:00 Budesonide (Pulmicort (Neb)) 0.5 mg BID RESP THERAPY HHN Last administered on 04/21/19 09:55; Admin Dose 0.5 MG; Start 04/20/19 at 20:00 Bumetanide (Bumex) 0.5 mg DAILY PO Last administered on 04/21/19 08:32; Admin Dose 0.5 MG; Start 04/21/19 at 09:00 Assessment/Plan Hospital Course (Demo Recall) IMP: 1. ADHF 2. HFrEF 3. ARF--likely cardiorenal 4. Afib with RVR 5. Ischemic Hepatopathy 2/2 #1 6. Hypoxemic Resp Failure 2/2 #1 RECS: 1. Diuretics as tolerated 2. Amiodarone PO, cardiac recs. 3. De-escalate abx--> off 4. Titrate FiO2--> will try to transition to NC 5. Mobilize OOB dc planning OMER HANSON MD, [facility] Apr 21, 2019 11:34
--- NOTE | 2019-04-21 12:56 | CONS ---
Assessment/Plan Assessment/Plan Assessment/Plan (Daily) 1. Oliguric Acute kidney injury on CKD 2/2 Hemodynamics from CHF and atrial fibrillation RVR , also contributing ATN from sepsis 2. acute hypoxic respiratory failure requiring BIPAP due to Bilateral PNA and CHF 3. sepsis due to Bilateral PNA 4. Acute CHF exacerbation with EF 20% on ECHO, most likely new onset since pt has been denying any H/o CHF 5. New onset afib with RVR- on cardizem gtt 6. H/o HTN 7. H/o Sleep apnea 8. H/o Possible CKD but pt has been denying it.. His Renal Us showed normal echogenicity of kidneys but kidneys are small in size, The right kidney measures 9.5 cm. The left kidney measures 9.2 cm. Plan: -BUN/Cr 42/1.36- , bumex to 0.5mg po daily . Monitor electrolytes and replace as needed Echo showed EF 20% wiht Moderate MR, moderate to severe TR, Enlarged RV and RVSP 52 Amiodarone 400mg PO TID and metoprolol 100mg PO BID for rate conrol, eliquis for anticoagulation will follow up Consultation Date/Type/Reason Admit Date/Time Apr 12, 2019 at 12:21 Initial Consult Date 04/13/19 Type of Consult NEPHROLOGY Requesting Provider: MARVIN FOX MD Date/Time of Note DATE: 04/21/19 TIME: 12:56 Exam/Review of Systems Exam Vitals Vital Signs Date Temp Pulse Resp B/P (MAP) Pulse Ox O2 O2 Flow FiO2 Time Delivery Rate 04/21/19 98.3 90 18 115/74 98 Nasal 11:20 (88) Cannula 04/21/19 5.0 09:40 04/21/19 40 03:50 Intake and Output 04/20/19 04/20/19 04/21/19 1515:00 23:00 07:00 IntakeIntake Total 600 ml 250 ml OutputOutput Total 257 ml 2 ml 750 ml BalanceBalance 343 ml -2 ml -500 ml Results Result Diagram: 04/21/19 0601 04/21/19 0601 Results 24hrs Laboratory Tests Test 04/20/19 13:00 04/21/19 06:01 Blood Gas Specimen Source Blood arterial Arterial Blood Date Drawn 04/20/2019 1:05:00 PM Arterial Blood pH (Temp corrected) 7.505 H Arterial Blood pCO2 (Temp correct) 44.0 Arterial Blood pO2 (Temp corrected) 53.1 *L Arterial Blood HCO3 33.9 H Arterial Blood Base Excess 9.8 H Arterial Blood Oxygen Saturation 88.5 L Can Test ACCEPTAB Arterial Blood Gas Puncture Site Left Radial Arterial Blood Carboxyhemoglobin 1.0 Arterial Blood Methemoglobin 0.1 Blood Gas A-a O2 Differential 43.9 H Oxyhemoglobin Percent 87.5 L Blood Gas Temperature 37.0 Blood Gas Modality ROOM AIR FiO2 21.0 Blood Gas Critical Value Read Back JOHN GONZALES Blood Gas Notified Whom TM Blood Gas Notified Time 04/20/2019 1:13:02 PM White Blood Count 9.0 Red Blood Count 3.94 L Hemoglobin 11.0 L Hematocrit 36.6 L Mean Corpuscular Volume 92.9 Mean Corpuscular Hemoglobin 27.9 L Mean Corpuscular Hemoglobin Concent 30.1 L Red Cell Distribution Width 15.7 H Platelet Count 161 # Mean Platelet Volume 10.0 Immature Granulocytes % 0.400 Neutrophils % 69.1 Lymphocytes % 15.1 Monocytes % 11.3 H Eosinophils % 3.8 Basophils % 0.3 Nucleated Red Blood Cells % 0.0 Immature Granulocytes # 0.040 H Neutrophils # 6.2 Lymphocytes # 1.4 Monocytes # 1.0 H Eosinophils # 0.3 Basophils # 0.0 Nucleated Red Blood Cells # 0.0 Sodium Level 144 Potassium Level 4.0 Chloride Level 98 Carbon Dioxide Level 39 H Anion Gap 7 Blood Urea Nitrogen 42 H Creatinine 1.36 H Est Glomerular Filtrat Rate mL/min 53 L Glucose Level 97 Calcium Level 8.8 Phosphorus Level 3.0 Magnesium Level 2.0 Medications Medication Current Medications Aspirin (Halfprin) 81 mg DAILY PO Last administered on 04/21/19at 08:33; Admin Dose 81 MG; Start 04/13/19 at 09:00 Atorvastatin Calcium (Lipitor) 20 mg QHS PO Last administered on 04/20/19at 21:34; Admin Dose 20 MG; Start 04/12/19 at 21:00 Ondansetron HCl (Zofran Inj) 4 mg Q6H PRN IV NAUSEA AND/OR VOMITING Last administered on 04/15/19at 16:27; Admin Dose 4 MG; Start 04/12/19 at 13:00 Acetaminophen (Tylenol Tab) 650 mg Q6H PRN PO PAIN LEVEL 1-3 OR FEVER Last administered on 04/20/19 16:28; Admin Dose 650 MG; Start 04/12/19 at 13:00 Docusate Sodium (Colace) 100 mg Q12H PRN PO CONSTIPATION; Start 04/12/19 at 13:00 Magnesium Hydroxide (Milk Of Mag) 30 ml DAILY PRN PO CONSTIPATION; Start 04/12/19 at 13:00 Pantoprazole (Protonix Tab) 40 mg DAILY@06 PO Last administered on 04/21/19 06:31; Admin Dose 40 MG; Start 04/13/19 at 06:00 Apixaban (Eliquis) 5 mg BID PO Last administered on 04/21/19 08:33; Admin Dose 5 MG; Start 04/12/19 at 21:00 Metoprolol Tartrate (Lopressor) 5 mg Q2H PRN IV heart rate over 110 Last administered on 04/15/19at 09:11; Admin Dose 5 MG; Start 04/13/19 at 09:30 Morphine Sulfate (morphine) 2 mg Q4H PRN IV SEVERE PAIN LEVEL 7-10 Last administered on 04/14/19 14:56; Admin Dose 2 MG; Start 04/13/19 at 23:30 IV Flush (NS 10 ml) 10 ml Q8 PRN IV IV PROTOCOL; Start 04/14/19 at 15:00 Lorazepam (Ativan) 1 mg Q6H PRN IV anxiety; Start 04/14/19 at 15:00 Miscellaneous Information (Pending [facility] Order For Wound Care) This patient urias... PRN PRN XX WOUND CARE; Start 04/14/19 at 21:00 Amiodarone HCl (Cordarone) 400 mg TID PO Last administered on 04/17/19 13:10; Admin Dose 400 MG; Start 04/16/19 at 13:00; Status Hold Metoprolol Succinate (Toprol Xl) 100 mg BID PO Last administered on 04/21/19 08:34; Admin Dose 100 MG; Start 04/19/19 at 21:00 Albuterol/ Ipratropium (Duoneb) 3 ml Q6HWA RESP THERAPY HHN Last administered on 04/21/19 09:56; Admin Dose 3 ML; Start 04/20/19 at 20:00 Albuterol/ Ipratropium (Duoneb) 3 ml Q2H RESP THERAPY PRN HHN shortness of breath; Start 04/20/19 at 15:00 Budesonide (Pulmicort (Neb)) 0.5 mg BID RESP THERAPY HHN Last administered on 04/21/19at 09:55; Admin Dose 0.5 MG; Start 04/20/19 at 20:00 Bumetanide (Bumex) 0.5 mg DAILY PO Last administered on 04/21/19at 08:32; Admin Dose 0.5 MG; Start 04/21/19 at 09:00 RYAN VICENTE MD Apr 21, 2019 12:56
--- NOTE | 2019-04-21 14:07 | PN ---
Date/Time of Note Date/Time of Note DATE: 04/21/19 TIME: 14:07 Objective Vitals Vital Signs Date Temp Pulse Resp B/P (MAP) Pulse Ox O2 O2 Flow FiO2 Time Delivery Rate 04/21/19 98.3 90 18 115/74 98 Nasal 11:20 (88) Cannula 04/21/19 5.0 09:40 04/21/19 40 03:50 Intake and Output 04/20/19 04/20/19 04/21/19 1515:00 23:00 07:00 IntakeIntake Total 600 ml 250 ml OutputOutput Total 257 ml 2 ml 750 ml BalanceBalance 343 ml -2 ml -500 ml Results Result Diagram: 04/21/1960004/21/19600 Medications Medications Current Medications Aspirin (Halfprin) 81 mg DAILY PO Last administered on 04/21/19at 08:33; Admin Dose 81 MG; Start 04/13/19 at 09:00 Atorvastatin Calcium (Lipitor) 20 mg QHS PO Last administered on 04/20/19 21:34; Admin Dose 20 MG; Start 04/12/19 at 21:00 Ondansetron HCl (Zofran Inj) 4 mg Q6H PRN IV NAUSEA AND/OR VOMITING Last administered on 04/15/19 16:27; Admin Dose 4 MG; Start 04/12/19 at 13:00 Acetaminophen (Tylenol Tab) 650 mg Q6H PRN PO PAIN LEVEL 1-3 OR FEVER Last administered on 04/20/19 16:28; Admin Dose 650 MG; Start 04/12/19 at 13:00 Docusate Sodium (Colace) 100 mg Q12H PRN PO CONSTIPATION; Start 04/12/19 at 13:00 Magnesium Hydroxide (Milk Of Mag) 30 ml DAILY PRN PO CONSTIPATION; Start 04/12/19 at 13:00 Pantoprazole (Protonix Tab) 40 mg DAILY@06 PO Last administered on 04/21/19 06:31; Admin Dose 40 MG; Start 04/13/19 at 06:00 Apixaban (Eliquis) 5 mg BID PO Last administered on 04/21/19 08:33; Admin Dose 5 MG; Start 04/12/19 at 21:00 Metoprolol Tartrate (Lopressor) 5 mg Q2H PRN IV heart rate over 110 Last administered on 04/15/19 09:11; Admin Dose 5 MG; Start 04/13/19 at 09:30 Morphine Sulfate (morphine) 2 mg Q4H PRN IV SEVERE PAIN LEVEL 7-10 Last a dministered on 04/14/19 14:56; Admin Dose 2 MG; Start 04/13/19 at 23:30 IV Flush (NS 10 ml) 10 ml Q8 PRN IV IV PROTOCOL; Start 04/14/19 at 15:00 Lorazepam (Ativan) 1 mg Q6H PRN IV anxiety; Start 04/14/19 at 15:00 Miscellaneous Information (Pending [facility] Order For Wound Care) This patient urias... PRN PRN XX WOUND CARE; Start 04/14/19 at 21:00 Amiodarone HCl (Cordarone) 400 mg TID PO Last administered on 04/17/19 13:10; Admin Dose 400 MG; Start 04/16/19 at 13:00; Status Hold Metoprolol Succinate (Toprol Xl) 100 mg BID PO Last administered on 04/21/19 08:34; Admin Dose 100 MG; Start 04/19/19 at 21:00 Albuterol/ Ipratropium (Duoneb) 3 ml Q6HWA RESP THERAPY HHN Last administered on 04/21/19 09:56; Admin Dose 3 ML; Start 04/20/19 at 20:00 Albuterol/ Ipratropium (Duoneb) 3 ml Q2H RESP THERAPY PRN HHN shortness of breath; Start 04/20/19 at 15:00 Budesonide (Pulmicort (Neb)) 0.5 mg BID RESP THERAPY HHN Last administered on 04/21/19 09:55; Admin Dose 0.5 MG; Start 04/20/19 at 20:00 Bumetanide (Bumex) 0.5 mg DAILY PO Last administered on 04/21/19 08:32; Admin Dose 0.5 MG; Start 04/21/19 at 09:00 VTE Prophylaxis Risk score (from Nsg)>0 risk: 7 SCD applied (from Nsg): No SCD contraindication: other Lines/Catheters IV Catheter Type: Cárdenas in Place: No Assessment/Plan Hospital Course Subjective Patient doing much better patient states he feels well, but still needs oxygen Objective Physical exam General: Patient is laying in bed and answers questions appropriately Mentation: Patient is alert and oriented 4, Head: Normocephalic atraumatic Eyes: EOMI, pupils reactive to light Neck: Supple, nontender, midline Respiratory: Mildly coarse to auscultation bilaterally Cardiovascular: regular rate, no obvious murmurs Gastrointestinal: non-tender to palpation, bowel sounds heard. Neurological: Moves all extremities spontaneously Skin: No new skin lesions Assessment/Plan 1. Acute hypoxic respiratory failure- stable - patient is doing well on NC. Currently on 6L at 45%. - Pulm consultation appreciated. - Nebs PRN 2. Acute systolic congestive heart failure- improving - BNP noted - Cardiology on board and appreciate recommendations - Nephrology on board for management of diuretics. Will continue on Bumex - monitor I/O and daily weights - ECHO results noted with low EF 3. New onset afib with RVR- improving - patient now rate controlled after given digoxin - continue on PO amiodarone - Cardiology consultation appreciated - On Eliquis 4. DANYA- improving - Nephrology consultation appreciated - most likely secondary to ATN in setting of afib with RVR, hypoxia, and cardiorenal - US results noted - will renally dose medications 5. Bilateral pneumonia - seen on CXR - ID consultation appreciated and d/c antibiotics . will monitor off antibiotics per ID recs - continue Neb tx PRN 6. Elevated trop - most likely type 2 demand - will need stress test when stable either inpatient or outpatient and possible PCI in future when renal function improves - no chest pain noted 7. Elevated LFT- improving - Liver US noted - most likely due to congestion - no abdominal pain noted 8. Sleep apnea - on BIPAP qhs 9. HTN - continue home medications and adjust as needed 10. Sepsis secondary to PNA- improving - WBC nl and remains afebrile 11. Disposition -Patient continues to improve slowly every day, now 4.5 L LUIS CARLOS KENYON Apr 21, 2019 14:07
[2019-04-21] MEDS: ATORVASTATIN 20 MG TAB PO SCH (20:40)
[2019-04-21] MEDS: morphine 2 MG INJ IV PRN (20:40)
[2019-04-22] VITALS (8 sets, daily range): BP systolic 111–138; BP diastolic 65–87; PULSE 53–99; RESP 18–22
[2019-04-22] MEDS: ACETAMINOPHEN 325 MG TAB PO PRN (00:29)
[2019-04-22] MEDS: PANTOPRAZOLE (EC) 40 MG TAB PO SCH (06:38)
[2019-04-22] MEDS: ALBUTEROL/IPRATROPIUM (NEB) 3 ML AMP HHN SCH ×3 (08:21→14:26)
[2019-04-22] MEDS: BUDESONIDE (NEB) 0.5MG/2ML AMP HHN SCH ×2 (08:21→19:33)
[2019-04-22] MEDS: ASPIRIN (EC) 81 MG TAB PO SCH (09:42)
[2019-04-22] MEDS: APIXABAN 5 MG TABLET PO SCH ×2 (09:42→21:10)
[2019-04-22] MEDS: BUMETANIDE 1 MG TAB PO SCH (09:42)
[2019-04-22] MEDS: METOPROLOL (XL) 100 MG TAB PO SCH ×2 (09:43→21:11)
--- NOTE | 2019-04-22 11:34 | CONS ---
Assessment/Plan Assessment/Plan Assessment/Plan (Daily) 1. Oliguric Acute kidney injury on CKD 2/2 Hemodynamics from CHF and atrial fibrillation RVR , also contributing ATN from sepsis 2. acute hypoxic respiratory failure requiring BIPAP due to Bilateral PNA and CHF 3. sepsis due to Bilateral PNA 4. Acute CHF exacerbation with EF 20% on ECHO, most likely new onset since pt has been denying any H/o CHF 5. New onset afib with RVR- on cardizem gtt 6. H/o HTN 7. H/o Sleep apnea 8. H/o Possible CKD but pt has been denying it.. His Renal Us showed normal echogenicity of kidneys but kidneys are small in size, The right kidney measures 9.5 cm. The left kidney measures 9.2 cm. Plan: -BUN/Cr improved to 38/1.07- other electrolytes stable- , bumex to 0.5mg po daily . Monitor electrolytes and replace as needed Echo showed EF 20% wiht Moderate MR, moderate to severe TR, Enlarged RV and RVSP 52 Amiodarone 400mg PO TID and metoprolol 100mg PO BID for rate conrol, eliquis for anticoagulation will follow up Consultation Date/Type/Reason Admit Date/Time Apr 12, 2019 at 12:21 Initial Consult Date 04/13/19 Type of Consult NEPHROLOGY Requesting Provider: MARVIN FOX MD Date/Time of Note DATE: 04/22/19 TIME: 11:34 Exam/Review of Systems Exam Vitals Vital Signs Date Temp Pulse Resp B/P (MAP) Pulse Ox O2 O2 Flow FiO2 Time Delivery Rate 04/22/19 98.0 53 18 138/76 100 Nasal 11:17 (96) Cannula 04/22/19 4.0 09:00 04/22/19 40 02:51 Intake and Output 04/21/19 04/21/19 04/22/19 1515:00 23:00 07:00 IntakeIntake Total 480 ml 470 ml OutputOutput Total 300 ml 200 ml 100 ml BalanceBalance 180 ml 270 ml -100 ml Exam Constitutional: alert awake communicative Respiratory: decreased BS+, no wheezing Cardiovascular: regular rate and rhythm, nl pulses Gastrointestinal: soft, non-tender Musculoskeletal: muscle weakness, swelling (1+ pitting edema ) Extremities: normal pulses Neurological: alert awake, communicative, non focal Results Result Diagram: 04/22/1960504/22/19605 Results 24hrs Laboratory Tests Test 04/22/19 06:06 White Blood Count 9.0 Red Blood Count 3.60 L Hemoglobin 9.9 L Hematocrit 33.0 L Mean Corpuscular Volume 91.7 Mean Corpuscular Hemoglobin 27.5 L Mean Corpuscular Hemoglobin Concent 30.0 L Red Cell Distribution Width 15.9 H Platelet Count 178 Mean Platelet Volume 9.7 Immature Granulocytes % 0.600 H Neutrophils % 73.1 Lymphocytes % 13.0 L Monocytes % 10.8 Eosinophils % 2.1 Basophils % 0.4 Nucleated Red Blood Cells % 0.0 Immature Granulocytes # 0.050 H Neutrophils # 6.6 Lymphocytes # 1.2 Monocytes # 1.0 H Eosinophils # 0.2 Basophils # 0.0 Nucleated Red Blood Cells # 0.0 Sodium Level 143 Potassium Level 3.6 Chloride Level 100 Carbon Dioxide Level 35 H Anion Gap 8 Blood Urea Nitrogen 38 H Creatinine 1.07 Est Glomerular Filtrat Rate mL/min > 60 Glucose Level 93 Calcium Level 8.4 Phosphorus Level 3.5 Magnesium Level 1.9 Medications Medication Current Medications Aspirin (Halfprin) 81 mg DAILY PO Last administered on 04/22/19 09:42; Admin Dose 81 MG; Start 04/13/19 at 09:00 Atorvastatin Calcium (Lipitor) 20 mg QHS PO Last administered on 04/21/19at 20:40; Admin Dose 20 MG; Start 04/12/19 at 21:00 Ondansetron HCl (Zofran Inj) 4 mg Q6H PRN IV NAUSEA AND/OR VOMITING Last administered on 04/15/19at 16:27; Admin Dose 4 MG; Start 04/12/19 at 13:00 Acetaminophen (Tylenol Tab) 650 mg Q6H PRN PO PAIN LEVEL 1-3 OR FEVER Last administered on 04/22/19at 00:29; Admin Dose 650 MG; Start 04/12/19 at 13:00 Docusate Sodium (Colace) 100 mg Q12H PRN PO CONSTIPATION; Start 04/12/19 at 13:00 Magnesium Hydroxide (Milk Of Mag) 30 ml DAILY PRN PO CONSTIPATION; Start 04/12/19 at 13:00 Pantoprazole (Protonix Tab) 40 mg DAILY@06 PO Last administered on 04/22/19at 06:38; Admin Dose 40 MG; Start 04/13/19 at 06:00 Apixaban (Eliquis) 5 mg BID PO Last administered on 04/22/19 09:42; Admin Dose 5 MG; Start 04/12/19 at 21:00 Metoprolol Tartrate (Lopressor) 5 mg Q2H PRN IV heart rate over 110 Last administered on 04/15/19 09:11; Admin Dose 5 MG; Start 04/13/19 at 09:30 Morphine Sulfate (morphine) 2 mg Q4H PRN IV SEVERE PAIN LEVEL 7-10 Last administered on 04/21/19 20:40; Admin Dose 2 MG; Start 04/13/19 at 23:30 IV Flush (NS 10 ml) 10 ml Q8 PRN IV IV PROTOCOL; Start 04/14/19 at 15:00 Lorazepam (Ativan) 1 mg Q6H PRN IV anxiety; Start 04/14/19 at 15:00 Miscellaneous Information (Pending [facility] Order For Wound Care) This patient urias... PRN PRN XX WOUND CARE; Start 04/14/19 at 21:00 Amiodarone HCl (Cordarone) 400 mg TID PO Last administered on 04/17/19 13:10; Admin Dose 400 MG; Start 04/16/19 at 13:00; Status Hold Metoprolol Succinate (Toprol Xl) 100 mg BID PO Last administered on 04/22/19 09:43; Admin Dose 100 MG; Start 04/19/19 at 21:00 Albuterol/ Ipratropium (Duoneb) 3 ml Q6HWA RESP THERAPY HHN Last administered on 04/22/19 08:21; Admin Dose 3 ML; Start 04/20/19 at 20:00 Albuterol/ Ipratropium (Duoneb) 3 ml Q2H RESP THERAPY PRN HHN shortness of breath; Start 04/20/19 at 15:00 Budesonide (Pulmicort (Neb)) 0.5 mg BID RESP THERAPY HHN Last administered on 04/22/19 08:21; Admin Dose 0.5 MG; Start 04/20/19 at 20:00 Bumetanide (Bumex) 0.5 mg DAILY PO Last administered on 04/22/19 09:42; Admin Dose 0.5 MG; Start 04/21/19 at 09:00 Silver Sulfadiazine (Thermazene 1% 25 Gm) 1 applic DAILY TOP ; Start 04/22/19 at 12:00 RYAN VICENTE MD Apr 22, 2019 11:34
[2019-04-22] MEDS: SILVER SULFADIAZINE 1% 25 GM CR TOP SCH (14:15)
--- NOTE | 2019-04-22 14:15 | PN ---
Date/Time of Note Date/Time of Note DATE: 04/22/19 TIME: 14:14 Objective Vitals Vital Signs Date Temp Pulse Resp B/P (MAP) Pulse Ox O2 O2 Flow FiO2 Time Delivery Rate 04/22/19 3.0 13:21 04/22/19 98.0 53 18 138/76 100 Nasal 11:17 (96) Cannula 04/22/19 40 02:51 Intake and Output 04/21/19 04/21/19 04/22/19 1515:00 23:00 07:00 IntakeIntake Total 480 ml 470 ml OutputOutput Total 300 ml 200 ml 100 ml BalanceBalance 180 ml 270 ml -100 ml Results Result Diagram: 04/22/1960504/22/19605 Medications Medications Current Medications Aspirin (Halfprin) 81 mg DAILY PO Last administered on 04/22/19at 09:42; Admin Dose 81 MG; Start 04/13/19 at 09:00 Atorvastatin Calcium (Lipitor) 20 mg QHS PO Last administered on 04/21/19at 20:40; Admin Dose 20 MG; Start 04/12/19 at 21:00 Ondansetron HCl (Zofran Inj) 4 mg Q6H PRN IV NAUSEA AND/OR VOMITING Last administered on 04/15/19at 16:27; Admin Dose 4 MG; Start 04/12/19 at 13:00 Acetaminophen (Tylenol Tab) 650 mg Q6H PRN PO PAIN LEVEL 1-3 OR FEVER Last administered on 04/22/19at 00:29; Admin Dose 650 MG; Start 04/12/19 at 13:00 Docusate Sodium (Colace) 100 mg Q12H PRN PO CONSTIPATION; Start 04/12/19 at 13:00 Magnesium Hydroxide (Milk Of Mag) 30 ml DAILY PRN PO CONSTIPATION; Start 04/12/19 at 13:00 Pantoprazole (Protonix Tab) 40 mg DAILY@06 PO Last administered on 04/22/19at 06:38; Admin Dose 40 MG; Start 04/13/19 at 06:00 Apixaban (Eliquis) 5 mg BID PO Last administered on 04/22/19 09:42; Admin Dose 5 MG; Start 04/12/19 at 21:00 Metoprolol Tartrate (Lopressor) 5 mg Q2H PRN IV heart rate over 110 Last administered on 04/15/19 09:11; Admin Dose 5 MG; Start 04/13/19 at 09:30 Morphine Sulfate (morphine) 2 mg Q4H PRN IV SEVERE PAIN LEVEL 7-10 Last a dministered on 04/21/19 20:40; Admin Dose 2 MG; Start 04/13/19 at 23:30 IV Flush (NS 10 ml) 10 ml Q8 PRN IV IV PROTOCOL; Start 04/14/19 at 15:00 Lorazepam (Ativan) 1 mg Q6H PRN IV anxiety; Start 04/14/19 at 15:00 Miscellaneous Information ([facility] This patient urias... PRN PRN XX WOUND CARE; Start 04/14/19 at 21:00 Amiodarone HCl (Cordarone) 400 mg TID PO Last administered on 04/17/19 13:10; Admin Dose 400 MG; Start 04/16/19 at 13:00; Status Hold Metoprolol Succinate (Toprol Xl) 100 mg BID PO Last administered on 04/22/19 09:43; Admin Dose 100 MG; Start 04/19/19 at 21:00 Albuterol/ Ipratropium (Duoneb) 3 ml Q6HWA RESP THERAPY HHN Last administered on 04/22/19 08:21; Admin Dose 3 ML; Start 04/20/19 at 20:00 Albuterol/ Ipratropium (Duoneb) 3 ml Q2H RESP THERAPY PRN HHN shortness of breath; Start 04/20/19 at 15:00 Budesonide (Pulmicort (Neb)) 0.5 mg BID RESP THERAPY HHN Last administered on 04/22/19 08:21; Admin Dose 0.5 MG; Start 04/20/19 at 20:00 Bumetanide (Bumex) 0.5 mg DAILY PO Last administered on 04/22/19 09:42; Admin Dose 0.5 MG; Start 04/21/19 at 09:00 Silver Sulfadiazine (Thermazene 1% 25 Gm) 1 applic DAILY TOP ; Start 04/22/19 at 12:00 VTE Prophylaxis Risk score (from Ns)>0 risk: 8 SCD applied (from Ns): No SCD contraindication: other Lines/Catheters IV Catheter Type: Cárdenas in Place: No Assessment/Plan Hospital Course Subjective Patient conts to improve Objective Physical exam General: Patient is laying in bed and answers questions appropriately Mentation: Patient is alert and oriented 4, Head: Normocephalic atraumatic Eyes: EOMI, pupils reactive to light Neck: Supple, nontender, midline Respiratory: Mildly coarse to auscultation bilaterally Cardiovascular: regular rate, no obvious murmurs Gastrointestinal: non-tender to palpation, bowel sounds heard. Neurological: Moves all extremities spontaneously Skin: No new skin lesions Assessment/Plan 1. Acute hypoxic respiratory failure- stable - patient is doing well on NC. Currently on 4L - Pulm consultation appreciated. - Nebs PRN 2. Acute systolic congestive heart failure- improving - BNP noted - Cardiology on board and appreciate recommendations - Nephrology on board for management of diuretics. Will continue on Bumex - monitor I/O and daily weights - ECHO results noted with low EF 3. New onset afib with RVR- improving - patient now rate controlled after given digoxin - continue on PO amiodarone - Cardiology consultation appreciated - On Eliquis 4. DANYA- improving - Nephrology consultation appreciated - most likely secondary to ATN in setting of afib with RVR, hypoxia, and cardiorenal - US results noted - will renally dose medications 5. Bilateral pneumonia - seen on CXR - ID consultation appreciated and d/c antibiotics . will monitor off antibiotics per ID recs - continue Neb tx PRN 6. Elevated trop - most likely type 2 demand - will need stress test when stable either inpatient or outpatient and possible PCI in future when renal function improves - no chest pain noted 7. Elevated LFT- improving - Liver US noted - most likely due to congestion - no abdominal pain noted 8. Sleep apnea - on BIPAP qhs 9. HTN - continue home medications and adjust as needed 10. Sepsis secondary to PNA- improving - WBC nl and remains afebrile 11. Disposition -Patient continues to improve slowly every day, now 4 L -Case management attending to arrange all necessary things for patient to be discharged home as patient is out of prison days. LUIS CARLOS KENYON Apr 22, 2019 14:15
[2019-04-22] MEDS: ALBUTEROL/IPRATROPIUM (NEB) 3 ML AMP HHN PRN (19:32)
[2019-04-22] MEDS: ATORVASTATIN 20 MG TAB PO SCH (21:10)
[2019-04-23 04:02] VITALS: BP 133/65; PULSE 87; RESP 19
[2019-04-23] MEDS: PANTOPRAZOLE (EC) 40 MG TAB PO SCH (06:43)
[2019-04-23] MEDS: BUDESONIDE (NEB) 0.5MG/2ML AMP HHN SCH ×2 (07:29→19:54)
[2019-04-23] MEDS: ALBUTEROL/IPRATROPIUM (NEB) 3 ML AMP HHN SCH ×3 (07:29→19:54)
[2019-04-23 07:51] VITALS: BP 132/92; PULSE 59; RESP 20
[2019-04-23] MEDS: ASPIRIN (EC) 81 MG TAB PO SCH (09:00)
[2019-04-23] MEDS: BUMETANIDE 1 MG TAB PO SCH (10:31)
[2019-04-23] MEDS: APIXABAN 5 MG TABLET PO SCH ×2 (10:31→21:50)
[2019-04-23] MEDS: METOPROLOL (XL) 100 MG TAB PO SCH ×2 (10:32→21:49)
[2019-04-23] MEDS: SILVER SULFADIAZINE 1% 25 GM CR TOP SCH (10:33)
--- NOTE | 2019-04-23 10:38 | CONS ---
Consultation Date/Type/Reason Admit Date/Time Apr 12, 2019 at 12:21 Initial Consult Date 04/13/19 Type of Consult Pulmonary/critical care Patient is a 63-year-old [place] gentleman who came into the hospital with history of shortness of breath for the last 1 day. Patient denied having any chest pain, any fever, wheezing or any sputum production. Upon evaluation patient was found to be in A. fib with RVR. Patient has been rate controlled. By the time I saw the patient in ICU, patient is sitting comfortably in bed and denied having any shortness of breath, rest pain, or any other symptoms. Past medical history; 1. History of apparent chronic renal insufficiency. 2. History of hypertension. Medications; reviewed. Allergies; none. Social history; patient never smoked. Occupational history; patient is retired. Family history; noncontributory. Review of systems; denies any headache, chest pain, shortness of breath has improved. Denies any coughing, wheezing, sputum production or fever. Denies any abdominal pain, nausea vomiting. Any orthopnea. General exam; elderly male, laying comfortably in bed. Currently in no distress. Requesting Provider: MARVIN FOX MD Date/Time of Note DATE: 04/23/19 TIME: 10:36 24 HR Interval Summary Free Text/Dictation Patient's condition is stable. Denies any shortness of breath at rest. [place] of dyspnea on exertion. Denies any coughing or wheezing. General exam; elderly male, sitting in a chair by bedside. Currently in no distress. On 4 L nasal cannula. H HEENT exam; supple neck, positive JVD. No lymphadenopathy. Midline trachea. No thyromegaly. No neck masses. Pupils are small bilaterally. Chest exam; diminished breath sounds bilaterally. S1-S2 audible, no murmurs. Irregular rhythm. Abdomen exam; soft, no organomegaly. Nontender. Bowel sounds are audible. Extremity exam; no peripheral edema clubbing. CLIENT CONSULTANT exam; no focal deficit. Assessment and recommendations; 1. Patient admitted with CHF exacerbation as well as A. fib with RVR with interval improvement. 2. History of hypertension. Continue current supportive care. Continue BiPAP as needed. Exam/Review of Systems Exam Vitals Vital Signs Date Temp Pulse Resp B/P (MAP) Pulse Ox O2 O2 Flow FiO2 Time Delivery Rate 04/23/19 97.7 59 20 132/92 96 Nasal 07:51 (105) Cannula 04/23/19 4.0 07:35 04/23/19 40 02:37 Intake and Output 04/22/19 04/22/19 04/23/19 1515:00 23:00 07:00 IntakeIntake Total 320 ml 500 ml OutputOutput Total 200 ml BalanceBalance 120 ml 500 ml Results Result Diagram: 04/23/19 0611 04/23/19 0611 Results 24hrs Laboratory Tests Test 04/23/19 06:11 White Blood Count 10.0 Red Blood Count 3.53 L Hemoglobin 9.9 L Hematocrit 32.2 L Mean Corpuscular Volume 91.2 Mean Corpuscular Hemoglobin 28.0 L Mean Corpuscular Hemoglobin Concent 30.7 L Red Cell Distribution Width 16.1 H Platelet Count 195 Mean Platelet Volume 9.4 Immature Granulocytes % 0.600 H Neutrophils % 77.8 H Lymphocytes % 10.2 L Monocytes % 9.4 Eosinophils % 1.6 Basophils % 0.4 Nucleated Red Blood Cells % 0.0 Immature Granulocytes # 0.060 H Neutrophils # 7.8 H Lymphocytes # 1.0 Monocytes # 0.9 Eosinophils # 0.2 Basophils # 0.0 Nucleated Red Blood Cells # 0.0 Sodium Level 142 Potassium Level 3.9 Chloride Level 99 Carbon Dioxide Level 34 H Anion Gap 9 Blood Urea Nitrogen 36 H Creatinine 1.11 Est Glomerular Filtrat Rate mL/min > 60 Glucose Level 113 Calcium Level 8.7 Phosphorus Level 3.3 Magnesium Level 2.0 Medications Medication Current Medications Aspirin (Halfprin) 81 mg DAILY PO Last administered on 04/23/19at 09:00; Admin Dose 81 MG; Start 04/13/19 at 09:00 Atorvastatin Calcium (Lipitor) 20 mg QHS PO Last administered on 04/22/19 21:10; Admin Dose 20 MG; Start 04/12/19 at 21:00 Ondansetron HCl (Zofran Inj) 4 mg Q6H PRN IV NAUSEA AND/OR VOMITING Last a dministered on 04/15/19at 16:27; Admin Dose 4 MG; Start 04/12/19 at 13:00 Acetaminophen (Tylenol Tab) 650 mg Q6H PRN PO PAIN LEVEL 1-3 OR FEVER Last administered on 04/22/19at 00:29; Admin Dose 650 MG; Start 04/12/19 at 13:00 Docusate Sodium (Colace) 100 mg Q12H PRN PO CONSTIPATION; Start 04/12/19 at 13:00 Magnesium Hydroxide (Milk Of Mag) 30 ml DAILY PRN PO CONSTIPATION; Start 04/12/19 at 13:00 Pantoprazole (Protonix Tab) 40 mg DAILY@06 PO Last administered on 04/23/19 06:43; Admin Dose 40 MG; Start 04/13/19 at 06:00 Apixaban (Eliquis) 5 mg BID PO Last administered on 04/23/19 10:31; Admin Dose 5 MG; Start 04/12/19 at 21:00 Metoprolol Tartrate (Lopressor) 5 mg Q2H PRN IV heart rate over 110 Last administered on 04/15/19 09:11; Admin Dose 5 MG; Start 04/13/19 at 09:30 Morphine Sulfate (morphine) 2 mg Q4H PRN IV SEVERE PAIN LEVEL 7-10 Last administered on 04/21/19 20:40; Admin Dose 2 MG; Start 04/13/19 at 23:30 IV Flush (NS 10 ml) 10 ml Q8 PRN IV IV PROTOCOL; Start 04/14/19 at 15:00 Lorazepam (Ativan) 1 mg Q6H PRN IV anxiety Last administered on 04/22/19 23:35; Admin Dose 1 MG; Start 04/14/19 at 15:00 Miscellaneous Information (Pending [facility] Order For Wound Care) This patient urias... PRN PRN XX WOUND CARE; Start 04/14/19 at 21:00 Amiodarone HCl (Cordarone) 400 mg TID PO Last administered on 04/17/19 13:10; Admin Dose 400 MG; Start 04/16/19 at 13:00; Status Hold Metoprolol Succinate (Toprol Xl) 100 mg BID PO Last administered on 04/23/19 10:32; Admin Dose 100 MG; Start 04/19/19 at 21:00 Albuterol/ Ipratropium (Duoneb) 3 ml Q6HWA RESP THERAPY HHN Last administered on 04/23/19 07:29; Admin Dose 3 ML; Start 04/20/19 at 20:00 Albuterol/ Ipratropium (Duoneb) 3 ml Q2H RESP THERAPY PRN HHN shortness of breath Last administered on 04/22/19 19:32; Admin Dose 3 ML; Start 04/20/19 at 15:00 Budesonide (Pulmicort (Neb)) 0.5 mg BID RESP THERAPY HHN Last administered on 04/23/19 07:29; Admin Dose 0.5 MG; Start 04/20/19 at 20:00 Bumetanide (Bumex) 0.5 mg DAILY PO Last administered on 04/23/19 10:31; Admin Dose 0.5 MG; Start 04/21/19 at 09:00 Silver Sulfadiazine (Thermazene 1% 25 Gm) 1 applic DAILY TOP Last administered on 04/23/19 10:33; Admin Dose 1 APPLIC; Start 04/22/19 at 12:00 BONI BAER Apr 23, 2019 10:38
[2019-04-23 11:20] VITALS: BP 111/73; PULSE 78; RESP 20
--- NOTE | 2019-04-23 12:33 | PN ---
Date/Time of Note Date/Time of Note DATE: 04/23/19 TIME: 12:33 Objective Vitals Vital Signs Date Temp Pulse Resp B/P (MAP) Pulse Ox O2 O2 Flow FiO2 Time Delivery Rate 04/23/19 97.4 78 20 111/73 99 Nasal 11:20 (86) Cannula 04/23/19 5.0 08:00 04/23/19 40 02:37 Intake and Output 04/22/19 04/22/19 04/23/19 1515:00 23:00 07:00 IntakeIntake Total 320 ml 500 ml OutputOutput Total 200 ml BalanceBalance 120 ml 500 ml Results Result Diagram: 04/23/19 0611 04/23/19 0611 Medications Medications Current Medications Aspirin (Halfprin) 81 mg DAILY PO Last administered on 04/23/19 09:00; Admin Dose 81 MG; Start 04/13/19 at 09:00 Atorvastatin Calcium (Lipitor) 20 mg QHS PO Last administered on 04/22/19 2 1:10; Admin Dose 20 MG; Start 04/12/19 at 21:00 Ondansetron HCl (Zofran Inj) 4 mg Q6H PRN IV NAUSEA AND/OR VOMITING Last administered on 04/15/19 16:27; Admin Dose 4 MG; Start 04/12/19 at 13:00 Acetaminophen (Tylenol Tab) 650 mg Q6H PRN PO PAIN LEVEL 1-3 OR FEVER Last administered on 04/22/19 00:29; Admin Dose 650 MG; Start 04/12/19 at 13:00 Docusate Sodium (Colace) 100 mg Q12H PRN PO CONSTIPATION; Start 04/12/19 at 13:00 Magnesium Hydroxide (Milk Of Mag) 30 ml DAILY PRN PO CONSTIPATION; Start 04/12/19 at 13:00 Pantoprazole (Protonix Tab) 40 mg DAILY@06 PO Last administered on 04/23/19 0 6:43; Admin Dose 40 MG; Start 04/13/19 at 06:00 Apixaban (Eliquis) 5 mg BID PO Last administered on 04/23/19 10:31; Admin Dose 5 MG; Start 04/12/19 at 21:00 Metoprolol Tartrate (Lopressor) 5 mg Q2H PRN IV heart rate over 110 Last administered on 04/15/19 09:11; Admin Dose 5 MG; Start 04/13/19 at 09:30 Morphine Sulfate (morphine) 2 mg Q4H PRN IV SEVERE PAIN LEVEL 7-10 Last administered on 04/21/19 20:40; Admin Dose 2 MG; Start 04/13/19 at 23:30 IV Flush (NS 10 ml) 10 ml Q8 PRN IV IV PROTOCOL; Start 04/14/19 at 15:00 Lorazepam (Ativan) 1 mg Q6H PRN IV anxiety Last administered on 04/22/19 23:35; Admin Dose 1 MG; Start 04/14/19 at 15:00 Miscellaneous Information (Pending [facility] Order For Wound Care) This patient urias... PRN PRN XX WOUND CARE; Start 04/14/19 at 21:00 Amiodarone HCl (Cordarone) 400 mg TID PO Last administered on 04/17/19 13:10; Admin Dose 400 MG; Start 04/16/19 at 13:00; Status Hold Metoprolol Succinate (Toprol Xl) 100 mg BID PO Last administered on 04/23/19 10:32; Admin Dose 100 MG; Start 04/19/19 at 21:00 Albuterol/ Ipratropium (Duoneb) 3 ml Q6HWA RESP THERAPY HHN Last administered on 04/23/19 07:29; Admin Dose 3 ML; Start 04/20/19 at 20:00 Albuterol/ Ipratropium (Duoneb) 3 ml Q2H RESP THERAPY PRN HHN shortness of breath Last administered on 04/22/19 19:32; Admin Dose 3 ML; Start 04/20/19 at 15:00 Budesonide (Pulmicort (Neb)) 0.5 mg BID RESP THERAPY HHN Last administered on 04/23/19 07:29; Admin Dose 0.5 MG; Start 04/20/19 at 20:00 Bumetanide (Bumex) 0.5 mg DAILY PO Last administered on 04/23/19 10:31; Admin Dose 0.5 MG; Start 04/21/19 at 09:00 Silver Sulfadiazine (Thermazene 1% 25 Gm) 1 applic DAILY TOP Last administered on 04/23/19 10:33; Admin Dose 1 APPLIC; Start 04/22/19 at 12:00 VTE Prophylaxis Risk score (from Nsg)>0 risk: 3 SCD applied (from Nsg): Yes Lines/Catheters IV Catheter Type: Cárdenas in Place: No Assessment/Plan Hospital Course Subjective Patient conts to improve Objective Physical exam General: Patient is laying in bed and answers questions appropriately Mentation: Patient is alert and oriented 4, Head: Normocephalic atraumatic Eyes: EOMI, pupils reactive to light Neck: Supple, nontender, midline Respiratory: Mildly coarse to auscultation bilaterally Cardiovascular: regular rate, no obvious murmurs Gastrointestinal: non-tender to palpation, bowel sounds heard. Neurological: Moves all extremities spontaneously Skin: No new skin lesions Assessment/Plan 1. Acute hypoxic respiratory failure- stable - patient is doing well on NC. Currently on 4L - Pulm consultation appreciated. - Nebs PRN 2. Acute systolic congestive heart failure- improving - BNP noted - Cardiology on board and appreciate recommendations - Nephrology on board for management of diuretics. Will continue on Bumex - monitor I/O and daily weights - ECHO results noted with low EF 3. New onset afib with RVR- improving - patient now rate controlled after given digoxin - continue on PO amiodarone - Cardiology consultation appreciated - On Eliquis 4. DANYA- improving - Nephrology consultation appreciated - most likely secondary to ATN in setting of afib with RVR, hypoxia, and cardiorenal - US results noted - will renally dose medications 5. Bilateral pneumonia - seen on CXR - ID consultation appreciated and d/c antibiotics . will monitor off antibiotics per ID recs - continue Neb tx PRN 6. Elevated trop - most likely type 2 demand - will need stress test when stable either inpatient or outpatient and possible PCI in future when renal function improves - no chest pain noted 7. Elevated LFT- improving - Liver US noted - most likely due to congestion - no abdominal pain noted 8. Sleep apnea - on BIPAP qhs 9. HTN - continue home medications and adjust as needed 10. Sepsis secondary to PNA- improving - WBC nl and remains afebrile 11. Disposition -Patient continues to improve slowly every day, now 4 L -Case management attending to arrange all necessary things for patient to be discharged home as patient is out of halfway days. LUIS CARLOS KENYON Apr 23, 2019 12:33
[2019-04-23 15:33] VITALS: BP 123/76; PULSE 89; RESP 20
--- NOTE | 2019-04-23 17:25 | CONS ---
Assessment/Plan Assessment/Plan Assessment/Plan (Daily) 1. Oliguric Acute kidney injury on CKD 2/2 Hemodynamics from CHF and atrial fibrillation RVR , also contributing ATN from sepsis 2. acute hypoxic respiratory failure requiring BIPAP due to Bilateral PNA and CHF 3. sepsis due to Bilateral PNA 4. Acute CHF exacerbation with EF 20% on ECHO, most likely new onset since pt has been denying any H/o CHF 5. New onset afib with RVR- on cardizem gtt 6. H/o HTN 7. H/o Sleep apnea 8. H/o Possible CKD but pt has been denying it.. His Renal Us showed normal echogenicity of kidneys but kidneys are small in size, The right kidney measures 9.5 cm. The left kidney measures 9.2 cm. Plan: -BUN/Cr improved to 36/1.1- other electrolytes stable- , bumex to 0.5mg po daily . Monitor electrolytes and replace as needed Echo showed EF 20% wiht Moderate MR, moderate to severe TR, Enlarged RV and RVSP 52 Amiodarone 400mg PO TID and metoprolol 100mg PO BID for rate conrol, eliquis for anticoagulation will follow up Consultation Date/Type/Reason Admit Date/Time Apr 12, 2019 at 12:21 Initial Consult Date 04/13/19 Type of Consult NEPHROLOGY Requesting Provider: MARVIN FOX MD Date/Time of Note DATE: 04/23/19 TIME: 17:25 Exam/Review of Systems Exam Vitals Vital Signs Date Temp Pulse Resp B/P (MAP) Pulse Ox O2 O2 Flow FiO2 Time Delivery Rate 04/23/19 98.3 89 20 123/76 100 Nasal 15:33 (92) Cannula 04/23/19 5.0 08:00 04/23/19 40 02:37 Intake and Output 04/22/19 04/22/19 04/23/19 1515:00 23:00 07:00 IntakeIntake Total 320 ml 500 ml OutputOutput Total 200 ml BalanceBalance 120 ml 500 ml Results Result Diagram: 04/23/19 0611 04/23/19 0611 Results 24hrs Laboratory Tests Test 04/23/19 06:11 White Blood Count 10.0 Red Blood Count 3.53 L Hemoglobin 9.9 L Hematocrit 32.2 L Mean Corpuscular Volume 91.2 Mean Corpuscular Hemoglobin 28.0 L Mean Corpuscular Hemoglobin Concent 30.7 L Red Cell Distribution Width 16.1 H Platelet Count 195 Mean Platelet Volume 9.4 Immature Granulocytes % 0.600 H Neutrophils % 77.8 H Lymphocytes % 10.2 L Monocytes % 9.4 Eosinophils % 1.6 Basophils % 0.4 Nucleated Red Blood Cells % 0.0 Immature Granulocytes # 0.060 H Neutrophils # 7.8 H Lymphocytes # 1.0 Monocytes # 0.9 Eosinophils # 0.2 Basophils # 0.0 Nucleated Red Blood Cells # 0.0 Sodium Level 142 Potassium Level 3.9 Chloride Level 99 Carbon Dioxide Level 34 H Anion Gap 9 Blood Urea Nitrogen 36 H Creatinine 1.11 Est Glomerular Filtrat Rate mL/min > 60 Glucose Level 113 Calcium Level 8.7 Phosphorus Level 3.3 Magnesium Level 2.0 Medications Medication Current Medications Aspirin (Halfprin) 81 mg DAILY PO Last administered on 04/23/19 09:00; Admin Dose 81 MG; Start 04/13/19 at 09:00 Atorvastatin Calcium (Lipitor) 20 mg QHS PO Last administered on 04/22/19at 21: 10; Admin Dose 20 MG; Start 04/12/19 at 21:00 Ondansetron HCl (Zofran Inj) 4 mg Q6H PRN IV NAUSEA AND/OR VOMITING Last administered on 04/15/19at 16:27; Admin Dose 4 MG; Start 04/12/19 at 13:00 Acetaminophen (Tylenol Tab) 650 mg Q6H PRN PO PAIN LEVEL 1-3 OR FEVER Last administered on 04/22/19at 00:29; Admin Dose 650 MG; Start 04/12/19 at 13:00 Docusate Sodium (Colace) 100 mg Q12H PRN PO CONSTIPATION; Start 04/12/19 at 13:00 Magnesium Hydroxide (Milk Of Mag) 30 ml DAILY PRN PO CONSTIPATION; Start 04/12/19 at 13:00 Pantoprazole (Protonix Tab) 40 mg DAILY@06 PO Last administered on 04/23/19at 06: 43; Admin Dose 40 MG; Start 04/13/19 at 06:00 Apixaban (Eliquis) 5 mg BID PO Last administered on 04/23/19at 10:31; Admin Dose 5 MG; Start 04/12/19 at 21:00 Metoprolol Tartrate (Lopressor) 5 mg Q2H PRN IV heart rate over 110 Last administered on 04/15/19 09:11; Admin Dose 5 MG; Start 04/13/19 at 09:30 Morphine Sulfate (morphine) 2 mg Q4H PRN IV SEVERE PAIN LEVEL 7-10 Last administered on 04/21/19 20:40; Admin Dose 2 MG; Start 04/13/19 at 23:30 IV Flush (NS 10 ml) 10 ml Q8 PRN IV IV PROTOCOL; Start 04/14/19 at 15:00 Lorazepam (Ativan) 1 mg Q6H PRN IV anxiety Last administered on 04/22/19 23:35; Admin Dose 1 MG; Start 04/14/19 at 15:00 Miscellaneous Information (Pending [facility] Order For Wound Care) This patient urias... PRN PRN XX WOUND CARE; Start 04/14/19 at 21:00 Amiodarone HCl (Cordarone) 400 mg TID PO Last administered on 04/17/19 13:10; Admin Dose 400 MG; Start 04/16/19 at 13:00; Status Hold Metoprolol Succinate (Toprol Xl) 100 mg BID PO Last administered on 04/23/19 10:32; Admin Dose 100 MG; Start 04/19/19 at 21:00 Albuterol/ Ipratropium (Duoneb) 3 ml Q6HWA RESP THERAPY HHN Last administered on 04/23/19 07:29; Admin Dose 3 ML; Start 04/20/19 at 20:00 Albuterol/ Ipratropium (Duoneb) 3 ml Q2H RESP THERAPY PRN HHN shortness of breath Last administered on 04/22/19 19:32; Admin Dose 3 ML; Start 04/20/19 at 15:00 Budesonide (Pulmicort (Neb)) 0.5 mg BID RESP THERAPY HHN Last administered on 04/23/19 07:29; Admin Dose 0.5 MG; Start 04/20/19 at 20:00 Bumetanide (Bumex) 0.5 mg DAILY PO Last administered on 04/23/19 10:31; Admin Dose 0.5 MG; Start 04/21/19 at 09:00 Silver Sulfadiazine (Thermazene 1% 25 Gm) 1 applic DAILY TOP Last administered on 8/3/19at 10:33; Admin Dose 1 APPLIC; Start 04/22/19 at 12:00 RYAN VICENTE MD Apr 23, 2019 17:25
[2019-04-23 20:00] VITALS: BP 110/63; PULSE 63; RESP 19
[2019-04-23] MEDS: ATORVASTATIN 20 MG TAB PO SCH (21:50)
[2019-04-23] MEDS: morphine 2 MG INJ IV PRN (23:14)
[2019-04-24] VITALS (7 sets, daily range): BP systolic 111–149; BP diastolic 65–89; PULSE 60–106; RESP 18–20
[2019-04-24] MEDS: ALBUTEROL/IPRATROPIUM (NEB) 3 ML AMP HHN PRN (04:16)
[2019-04-24] MEDS ORDERED: METHYLPREDNISOLONE 125 MG INJ IV ONE (05:30)
[2019-04-24] MEDS: PANTOPRAZOLE (EC) 40 MG TAB PO SCH (05:47)
[2019-04-24] MEDS: BUDESONIDE (NEB) 0.5MG/2ML AMP HHN SCH ×2 (08:05→20:03)
[2019-04-24] MEDS: ALBUTEROL/IPRATROPIUM (NEB) 3 ML AMP HHN SCH ×3 (08:05→20:03)
--- NOTE | 2019-04-24 08:24 | CONS ---
Assessment/Plan Assessment/Plan Assessment/Plan (Daily) 1. Oliguric Acute kidney injury on CKD 2/2 Hemodynamics from CHF and atrial fibrillation RVR , also contributing ATN from sepsis 2. acute hypoxic respiratory failure requiring BIPAP due to Bilateral PNA and CHF 3. sepsis due to Bilateral PNA 4. Acute CHF exacerbation with EF 20% on ECHO, most likely new onset since pt has been denying any H/o CHF 5. New onset afib with RVR- on cardizem gtt 6. H/o HTN 7. H/o Sleep apnea 8. H/o Possible CKD but pt has been denying it.. His Renal Us showed normal echogenicity of kidneys but kidneys are small in size, The right kidney measures 9.5 cm. The left kidney measures 9.2 cm. Plan: -BUN/Cr improved to 36/1.1- other electrolytes stable- , bumex increased to 1 mg po daily . Monitor electrolytes and replace as needed Echo showed EF 20% wiht Moderate MR, moderate to severe TR, Enlarged RV and RVSP 52 Amiodarone 400mg PO TID and metoprolol 100mg PO BID for rate conrol, eliquis for anticoagulation will follow up Consultation Date/Type/Reason Admit Date/Time Apr 12, 2019 at 12:21 Initial Consult Date 04/13/19 Type of Consult NEPHROLOGY Requesting Provider: MARVIN FOX MD Date/Time of Note DATE: 04/24/19 TIME: 08:24 Exam/Review of Systems Exam Vitals Vital Signs Date Temp Pulse Resp B/P (MAP) Pulse Ox O2 O2 Flow FiO2 Time Delivery Rate 04/24/19 97.5 69 20 133/87 99 Nasal 07:37 (102) Cannula 04/24/19 5.0 04:17 04/24/19 40 01:59 Intake and Output 04/23/19 04/23/19 04/24/19 1515:00 23:00 07:00 IntakeIntake Total 600 ml 480 ml 240 ml BalanceBalance 600 ml 480 ml 240 ml Exam Constitutional: alert awake communicative Respiratory: decreased BS+, no wheezing Cardiovascular: regular rate and rhythm, nl pulses Gastrointestinal: soft, non-tender Musculoskeletal: muscle weakness, swelling (1+ pitting edema ) Extremities: normal pulses Neurological: alert awake, communicative, non focal Results Result Diagram: 04/24/19 0604 04/24/19 0604 Results 24hrs Laboratory Tests Test 04/24/19 06:04 White Blood Count 10.1 Red Blood Count 3.42 L Hemoglobin 9.6 L Hematocrit 31.2 L Mean Corpuscular Volume 91.2 Mean Corpuscular Hemoglobin 28.1 L Mean Corpuscular Hemoglobin Concent 30.8 L Red Cell Distribution Width 16.2 H Platelet Count 205 Mean Platelet Volume 9.5 Immature Granulocytes % 0.700 H Neutrophils % 79.6 H Lymphocytes % 10.0 L Monocytes % 7.9 Eosinophils % 1.4 Basophils % 0.4 Nucleated Red Blood Cells % 0.0 Immature Granulocytes # 0.070 H Neutrophils # 8.1 H Lymphocytes # 1.0 Monocytes # 0.8 Eosinophils # 0.1 Basophils # 0.0 Nucleated Red Blood Cells # 0.0 Sodium Level 143 Potassium Level 3.9 Chloride Level 103 Carbon Dioxide Level 32 H Anion Gap 8 Blood Urea Nitrogen 33 H Creatinine 1.09 Est Glomerular Filtrat Rate mL/min > 60 Glucose Level 119 Calcium Level 8.6 Phosphorus Level 4.0 Magnesium Level 2.1 Medications Medication Current Medications Aspirin (Halfprin) 81 mg DAILY PO Last administered on 04/23/19at 09:00; Admin Dose 81 MG; Start 04/13/19 at 09:00 Atorvastatin Calcium (Lipitor) 20 mg QHS PO Last administered on 04/23/19at 21:50; Admin Dose 20 MG; Start 04/12/19 at 21:00 Ondansetron HCl (Zofran Inj) 4 mg Q6H PRN IV NAUSEA AND/OR VOMITING Last administered on 04/15/19at 16:27; Admin Dose 4 MG; Start 04/12/19 at 13:00 Acetaminophen (Tylenol Tab) 650 mg Q6H PRN PO PAIN LEVEL 1-3 OR FEVER Last administered on 04/22/19at 00:29; Admin Dose 650 MG; Start 04/12/19 at 13:00 Docusate Sodium (Colace) 100 mg Q12H PRN PO CONSTIPATION; Start 04/12/19 at 13:00 Magnesium Hydroxide (Milk Of Mag) 30 ml DAILY PRN PO CONSTIPATION; Start 04/12/19 at 13:00 Pantoprazole (Protonix Tab) 40 mg DAILY@06 PO Last administered on 04/24/19at 05:47; Admin Dose 40 MG; Start 04/13/19 at 06:00 Apixaban (Eliquis) 5 mg BID PO Last administered on 04/23/19 21:50; Admin Dose 5 MG; Start 04/12/19 at 21:00 Metoprolol Tartrate (Lopressor) 5 mg Q2H PRN IV heart rate over 110 Last adm inistered on 04/15/19 09:11; Admin Dose 5 MG; Start 04/13/19 at 09:30 Morphine Sulfate (morphine) 2 mg Q4H PRN IV SEVERE PAIN LEVEL 7-10 Last administered on 04/23/19 23:14; Admin Dose 2 MG; Start 04/13/19 at 23:30 IV Flush (NS 10 ml) 10 ml Q8 PRN IV IV PROTOCOL; Start 04/14/19 at 15:00 Lorazepam (Ativan) 1 mg Q6H PRN IV anxiety Last administered on 04/22/19 23:35; Admin Dose 1 MG; Start 04/14/19 at 15:00 Miscellaneous Information (Pending [facility] Order For Wound Care) This patient urias... PRN PRN XX WOUND CARE; Start 04/14/19 at 21:00 Amiodarone HCl (Cordarone) 400 mg TID PO Last administered on 04/17/19 13:10; Admin Dose 400 MG; Start 04/16/19 at 13:00; Status Hold Metoprolol Succinate (Toprol Xl) 100 mg BID PO Last administered on 04/23/19 21:49; Admin Dose 100 MG; Start 04/19/19 at 21:00 Albuterol/ Ipratropium (Duoneb) 3 ml Q6HWA RESP THERAPY HHN Last administered on 04/24/19 08:05; Admin Dose 3 ML; Start 04/20/19 at 20:00 Albuterol/ Ipratropium (Duoneb) 3 ml Q2H RESP THERAPY PRN HHN shortness of breath Last administered on 04/24/19 04:16; Admin Dose 3 ML; Start 04/20/19 at 15:00 Budesonide (Pulmicort (Neb)) 0.5 mg BID RESP THERAPY HHN Last administered on 04/24/19 08:05; Admin Dose 0.5 MG; Start 04/20/19 at 20:00 Bumetanide (Bumex) 0.5 mg DAILY PO Last administered on 04/23/19at 10:31; Admin Dose 0.5 MG; Start 04/21/19 at 09:00 Silver Sulfadiazine (Thermazene 1% 25 Gm) 1 applic DAILY TOP Last administered on 04/23/19at 10:33; Admin Dose 1 APPLIC; Start 04/22/19 at 12:00 RYAN VICENTE MD Apr 24, 2019 08:24
[2019-04-24] MEDS: BUMETANIDE 1 MG TAB PO SCH (09:09)
[2019-04-24] MEDS: ASPIRIN (EC) 81 MG TAB PO SCH (09:09)
[2019-04-24] MEDS: METOPROLOL (XL) 100 MG TAB PO SCH ×2 (09:09→21:43)
[2019-04-24] MEDS: SILVER SULFADIAZINE 1% 25 GM CR TOP SCH (09:10)
[2019-04-24] MEDS: APIXABAN 5 MG TABLET PO SCH (09:10)
--- NOTE | 2019-04-24 11:17 | PN ---
Date/Time of Note Date/Time of Note DATE: 04/24/19 TIME: 11:16 Objective Vitals Vital Signs Date Temp Pulse Resp B/P (MAP) Pulse Ox O2 O2 Flow FiO2 Time Delivery Rate 04/24/19 4.0 08:15 04/24/19 96 20 98 Nasal 08:15 Cannula 04/24/19 97.5 133/87 07:37 (102) 04/24/19 40 01:59 Intake and Output 04/23/19 04/23/19 04/24/19 1515:00 23:00 07:00 IntakeIntake Total 600 ml 480 ml 240 ml BalanceBalance 600 ml 480 ml 240 ml Results Result Diagram: 04/24/1904 04/24/19 0604 Medications Medications Current Medications Aspirin (Halfprin) 81 mg DAILY PO Last administered on 04/24/19at 09:09; Admin Dose 81 MG; Start 04/13/19 at 09:00 Atorvastatin Calcium (Lipitor) 20 mg QHS PO Last administered on 04/23/19at 21:50; Admin Dose 20 MG; Start 04/12/19 at 21:00 Ondansetron HCl (Zofran Inj) 4 mg Q6H PRN IV NAUSEA AND/OR VOMITING Last administered on 04/15/19 16:27; Admin Dose 4 MG; Start 04/12/19 at 13:00 Acetaminophen (Tylenol Tab) 650 mg Q6H PRN PO PAIN LEVEL 1-3 OR FEVER Last administered on 04/22/19 00:29; Admin Dose 650 MG; Start 04/12/19 at 13:00 Docusate Sodium (Colace) 100 mg Q12H PRN PO CONSTIPATION; Start 04/12/19 at 13:00 Magnesium Hydroxide (Milk Of Mag) 30 ml DAILY PRN PO CONSTIPATION; Start 04/12/19 at 13:00 Pantoprazole (Protonix Tab) 40 mg DAILY@06 PO Last administered on 04/24/19 05:47; Admin Dose 40 MG; Start 04/13/19 at 06:00 Apixaban (Eliquis) 5 mg BID PO Last administered on 04/24/19 09:10; Admin Dose 5 MG; Start 04/12/19 at 21:00 Metoprolol Tartrate (Lopressor) 5 mg Q2H PRN IV heart rate over 110 Last administered on 04/15/19 09:11; Admin Dose 5 MG; Start 04/13/19 at 09:30 Morphine Sulfate (morphine) 2 mg Q4H PRN IV SEVERE PAIN LEVEL 7-10 Last administered on 04/23/19 23:14; Admin Dose 2 MG; Start 04/13/19 at 23:30 IV Flush (NS 10 ml) 10 ml Q8 PRN IV IV PROTOCOL; Start 04/14/19 at 15:00 Lorazepam (Ativan) 1 mg Q6H PRN IV anxiety Last administered on 04/22/19 23:35; Admin Dose 1 MG; Start 04/14/19 at 15:00 Miscellaneous Information (Pending [facility] Order For Wound Care) This patient urias... PRN PRN XX WOUND CARE; Start 04/14/19 at 21:00 Amiodarone HCl (Cordarone) 400 mg TID PO Last administered on 04/17/19 13:10; Admin Dose 400 MG; Start 04/16/19 at 13:00; Status Hold Metoprolol Succinate (Toprol Xl) 100 mg BID PO Last administered on 04/24/19 09:09; Admin Dose 100 MG; Start 04/19/19 at 21:00 Albuterol/ Ipratropium (Duoneb) 3 ml Q6HWA RESP THERAPY HHN Last administered on 04/24/19 08:05; Admin Dose 3 ML; Start 04/20/19 at 20:00 Albuterol/ Ipratropium (Duoneb) 3 ml Q2H RESP THERAPY PRN HHN shortness of breath Last administered on 04/24/19 04:16; Admin Dose 3 ML; Start 04/20/19 at 15:00 Budesonide (Pulmicort (Neb)) 0.5 mg BID RESP THERAPY HHN Last administered on 04/24/19 08:05; Admin Dose 0.5 MG; Start 04/20/19 at 20:00 Bumetanide (Bumex) 0.5 mg DAILY PO Last administered on 04/24/19 09:09; Admin Dose 0.5 MG; Start 04/21/19 at 09:00 Silver Sulfadiazine (Thermazene 1% 25 Gm) 1 applic DAILY TOP Last administered on 04/24/19 09:10; Admin Dose 1 APPLIC; Start 04/22/19 at 12:00 VTE Prophylaxis Risk score (from Nsg)>0 risk: 5 SCD applied (from Ns): No SCD contraindication: other Lines/Catheters IV Catheter Type: Cárdenas in Place: No Assessment/Plan Hospital Course Subjective Patient states that today is a little worse than yesterday. Objective Physical exam General: Patient is laying in bed and answers questions appropriately Mentation: Patient is alert and oriented 4, Head: Normocephalic atraumatic Eyes: EOMI, pupils reactive to light Neck: Supple, nontender, midline Respiratory: Mildly coarse to auscultation bilaterally Cardiovascular: regular rate, no obvious murmurs Gastrointestinal: non-tender to palpation, bowel sounds heard. Neurological: Moves all extremities spontaneously Skin: No new skin lesions Assessment/Plan 1. Acute hypoxic respiratory failure- stable - patient is doing well on NC. Currently on 4L - Pulm consultation appreciated. - Nebs PRN 2. Acute systolic congestive heart failure- improving - BNP noted - Cardiology on board and appreciate recommendations - Nephrology on board for management of diuretics. Will continue on Bumex - monitor I/O and daily weights - ECHO results noted with low EF 3. New onset afib with RVR- improving - patient now rate controlled after given digoxin - continue on PO amiodarone - Cardiology consultation appreciated - On Eliquis 4. DANYA- improving - Nephrology consultation appreciated - most likely secondary to ATN in setting of afib with RVR, hypoxia, and cardiorenal - US results noted - will renally dose medications 5. Bilateral pneumonia - seen on CXR - ID consultation appreciated and d/c antibiotics . will monitor off antibiotics per ID recs - continue Neb tx PRN 6. Elevated trop - most likely type 2 demand - will need stress test when stable either inpatient or outpatient and possible PCI in future when renal function improves - no chest pain noted 7. Elevated LFT- improving - Liver US noted - most likely due to congestion - no abdominal pain noted 8. Sleep apnea - on BIPAP qhs 9. HTN - continue home medications and adjust as needed 10. Sepsis secondary to PNA- improving - WBC nl and remains afebrile 11. Disposition -Will confirm with nephrology for diuretic adjustment given patient's mildly increased respiratory issues today. -Case management attending to arrange all necessary things for patient to be discharged home as patient is out of [facility] days. LUIS CARLOS KENYON 4, 2019 11:17
[2019-04-24] MEDS ORDERED: BUMETANIDE 0.5 MG TAB PO ONE (12:30)
--- NOTE | 2019-04-24 15:37 | CONS ---
Consult Date/Type/Reason Admit Date/Time Apr 12, 2019 at 12:21 Initial Consult Date 04/13/19 Type of Consultation: Pulm Requesting Provider: MARVIN FOX MD Date/Time of Note DATE: 04/24/19 TIME: 15:35 Subjective No events overnight. Remains on 3-4 L O2 via NC. Objective Vitals Vital Signs Date Temp Pulse Resp B/P (MAP) Pulse Ox O2 O2 Flow FiO2 Time Delivery Rate 04/24/19 98.1 90 20 128/80 100 Nasal 15:24 (96) Cannula 04/24/19 4.0 08:15 04/24/19 40 01:59 Intake and Output 04/23/19 04/23/19 04/24/19 1515:00 23:00 07:00 IntakeIntake Total 600 ml 480 ml 240 ml BalanceBalance 600 ml 480 ml 240 ml Exam HEENT: Neck supple; no JVD; no LAD CVS: tachy irreg irreg S1 and S2 CHEST: Clear anteriorly ABD: Soft, NT, + BS EXT: No c/c/e Results/Medications Result Diagram: 04/24/19 0604 04/24/19 0604 Results 24 hrs Laboratory Tests Test 04/24/19 06:04 White Blood Count 10.1 Red Blood Count 3.42 L Hemoglobin 9.6 L Hematocrit 31.2 L Mean Corpuscular Volume 91.2 Mean Corpuscular Hemoglobin 28.1 L Mean Corpuscular Hemoglobin Concent 30.8 L Red Cell Distribution Width 16.2 H Platelet Count 205 Mean Platelet Volume 9.5 Immature Granulocytes % 0.700 H Neutrophils % 79.6 H Lymphocytes % 10.0 L Monocytes % 7.9 Eosinophils % 1.4 Basophils % 0.4 Nucleated Red Blood Cells % 0.0 Immature Granulocytes # 0.070 H Neutrophils # 8.1 H Lymphocytes # 1.0 Monocytes # 0.8 Eosinophils # 0.1 Basophils # 0.0 Nucleated Red Blood Cells # 0.0 Sodium Level 143 Potassium Level 3.9 Chloride Level 103 Carbon Dioxide Level 32 H Anion Gap 8 Blood Urea Nitrogen 33 H Creatinine 1.09 Est Glomerular Filtrat Rate mL/min > 60 Glucose Level 119 Calcium Level 8.6 Phosphorus Level 4.0 Magnesium Level 2.1 Home Meds Reported Medications Aspirin* (Aspirin* EC) 81 Mg Tablet., 81 MG PO DAILY, TAB 04/12/19 Atorvastatin Calcium* (Atorvastatin Calcium*) 20 Mg Tablet, 20 MG PO QHS, #30 TAB 04/12/19 Losartan Potassium* (Losartan Potassium*) 100 Mg Tablet, 100 MG PO DAILY, TAB 04/12/19 Amlodipine Besylate* (Amlodipine Besylate*) 10 Mg Tablet, 10 MG PO DAILY, #30 TAB 04/12/19 Medications Current Medications Aspirin (Halfprin) 81 mg DAILY PO Last administered on 04/24/19 09:09; Admin Dose 81 MG; Start 04/13/19 at 09:00 Atorvastatin Calcium (Lipitor) 20 mg QHS PO Last administered on 04/23/19 21:50; Admin Dose 20 MG; Start 04/12/19 at 21:00 Ondansetron HCl (Zofran Inj) 4 mg Q6H PRN IV NAUSEA AND/OR VOMITING Last administered on 04/15/19 16:27; Admin Dose 4 MG; Start 04/12/19 at 13:00 Acetaminophen (Tylenol Tab) 650 mg Q6H PRN PO PAIN LEVEL 1-3 OR FEVER Last administered on 04/22/19 00:29; Admin Dose 650 MG; Start 04/12/19 at 13:00 Docusate Sodium (Colace) 100 mg Q12H PRN PO CONSTIPATION; Start 04/12/19 at 13:00 Magnesium Hydroxide (Milk Of Mag) 30 ml DAILY PRN PO CONSTIPATION; Start 04/12/19 at 13:00 Pantoprazole (Protonix Tab) 40 mg DAILY@06 PO Last administered on 04/24/19 05:47; Admin Dose 40 MG; Start 04/13/19 at 06:00 Apixaban (Eliquis) 5 mg BID PO Last administered on 04/24/19 09:10; Admin Dose 5 MG; Start 04/12/19 at 21:00 Metoprolol Tartrate (Lopressor) 5 mg Q2H PRN IV heart rate over 110 Last administered on 04/15/19 09:11; Admin Dose 5 MG; Start 04/13/19 at 09:30 Morphine Sulfate (morphine) 2 mg Q4H PRN IV SEVERE PAIN LEVEL 7-10 Last administered on 04/23/19 23:14; Admin Dose 2 MG; Start 04/13/19 at 23:30 IV Flush (NS 10 ml) 10 ml Q8 PRN IV IV PROTOCOL; Start 04/14/19 at 15:00 Lorazepam (Ativan) 1 mg Q6H PRN IV anxiety Last administered on 04/22/19 23:35; Admin Dose 1 MG; Start 04/14/19 at 15:00 [facility] This patient urias... PRN PRN XX WOUND CARE; Start 04/14/19 at 21:00 Amiodarone HCl (Cordarone) 400 mg TID PO Last administered on 04/17/19at 13:10; Admin Dose 400 MG; Start 04/16/19 at 13:00; Status Hold Metoprolol Succinate (Toprol Xl) 100 mg BID PO Last administered on 04/24/19 09:09; Admin Dose 100 MG; Start 04/19/19 at 21:00 Albuterol/ Ipratropium (Duoneb) 3 ml Q6HWA RESP THERAPY HHN Last administered on 04/24/19 08:05; Admin Dose 3 ML; Start 04/20/19 at 20:00 Albuterol/ Ipratropium (Duoneb) 3 ml Q2H RESP THERAPY PRN HHN shortness of breath Last administered on 04/24/19 04:16; Admin Dose 3 ML; Start 04/20/19 at 15:00 Budesonide (Pulmicort (Neb)) 0.5 mg BID RESP THERAPY HHN Last administered on 04/24/19 08:05; Admin Dose 0.5 MG; Start 04/20/19 at 20:00 Silver Sulfadiazine (Thermazene 1% 25 Gm) 1 applic DAILY TOP Last administered on 04/24/19 09:10; Admin Dose 1 APPLIC; Start 04/22/19 at 12:00 Bumetanide (Bumex) 1 mg DAILY PO ; Start 04/25/19 at 09:00 Assessment/Plan Assessment/Plan (Daily) IMP: 1. ADHF 2. HFrEF 3. ARF--likely cardiorenal 4. Afib with RVR 5. Ischemic Hepatopathy 2/2 #1 6. Hypoxemic Resp Failure 2/2 #1 7. Right pleural effusion RECS: 1. Titrate FiO2 as tolerated 2. Amiodarone PO 3. Keep I<O's 4. Mobilize/PT/OT KAMANGAR,ANITA MD Apr 24, 2019 15:37
[2019-04-24] MEDS ORDERED: PANTOPRAZOLE IV 80 MG in SOD CHLORIDE 0.9% 100 ML IVPB ONE (19:30)
[2019-04-24] MEDS: ATORVASTATIN 20 MG TAB PO SCH (21:43)
[2019-04-24] MEDS: PANTOPRAZOLE IV 80 MG in SOD CHLORIDE 0.9% 100 ML IV SCH (22:23)
[2019-04-25] VITALS (8 sets, daily range): BP systolic 84–122; BP diastolic 64–86; PULSE 76–114; RESP 16–20
[2019-04-25] MEDS ORDERED: OCTREOTIDE 50 MCG INJ SC ONE (02:45)
[2019-04-25] MEDS ORDERED: SOD CHLORIDE 0.9% 250 ML IV ONE (05:00)
[2019-04-25] MEDS ORDERED: ALBUMIN HUMAN 25% 50 ML IV ONE (05:00)
[2019-04-25] MEDS: PANTOPRAZOLE IV 80 MG in SOD CHLORIDE 0.9% 100 ML IV SCH ×2 (06:34→15:22)
[2019-04-25] MEDS: ALBUTEROL/IPRATROPIUM (NEB) 3 ML AMP HHN SCH ×3 (08:29→19:53)
[2019-04-25] MEDS: BUDESONIDE (NEB) 0.5MG/2ML AMP HHN SCH ×2 (08:29→19:53)
[2019-04-25] MEDS: ASPIRIN (EC) 81 MG TAB PO SCH (09:00)
[2019-04-25] MEDS: METOPROLOL (XL) 100 MG TAB PO SCH ×2 (09:00→21:00)
[2019-04-25] MEDS: SILVER SULFADIAZINE 1% 25 GM CR TOP SCH (09:10)
[2019-04-25] MEDS: BUMETANIDE 1 MG TAB PO SCH (09:11)
--- NOTE | 2019-04-25 11:15 | PN ---
Date/Time of Note Date/Time of Note DATE: 04/25/19 TIME: 11:15 Assessment/Plan VTE Prophylaxis Risk score (from Ns)>0 risk: 2 SCD applied (from Ns): Yes Pharmacological prophylaxis: NA/contraindicated Pharm contraindication: bleeding Lines/Catheters IV Catheter Type (from Nrsg): PICC Line Central line still needed: Yes Urinary Cath still in place: No Assessment/Plan Assessment/Plan 1. Acute GI bleeding - GI consulted for evaluation - holding aspirin and Eliquis - Will ask Cardiology for clearance to proceed with colonoscopy 2. Acute hypoxic respiratory failure- stable - patient is doing well on NC. Currently on 4L - Pulm consultation appreciated. - Nebs PRN 3. Acute systolic congestive heart failure- stable - BNP noted - Cardiology on board and appreciate recommendations - Nephrology on board for management of diuretics. Will continue on Bumex - monitor I/O and daily weights - ECHO results noted with low EF 4. New onset afib with RVR- stable - doing well on digoxin - continue on PO amiodarone - Cardiology consultation appreciated - On Eliquis 5. DANYA-resolving - Nephrology consultation appreciated - will need to monitor in setting of anemia due to GI bleed - US results noted - will renally dose medications 6. Bilateral pneumonia - seen on CXR - ID consultation appreciated and d/c antibiotics. will monitor off antibiotics per ID recs - continue Neb tx PRN 7. Elevated trop - most likely type 2 demand - will need stress test when stable either inpatient or outpatient and possible PCI in future when renal function improves - no chest pain noted 8. Sleep apnea - on BIPAP qhs 9. HTN - continue home medications and adjust as needed 10. Disposition - Gi consulted for possible colonoscopy and Cardiology contacted for clearance for procedure. Will assess tomorrow - CM on board for discharge planning Result Diagram: 04/25/19 0039 04/24/19 0604 Results 24hrs Laboratory Tests Test 04/24/19 19:24 04/25/19 00:39 Hemoglobin 8.5 L 6.6 #*L Hematocrit 28.1 L 21.6 #L Subjective 24 Hr Interval Summary Free Text/Dictation Patient denies any chest pain or shortness of breath. Still with bright blood per rectum. Exam/Review of Systems Exam Vitals Vital Signs Date Temp Pulse Resp B/P (MAP) Pulse Ox O2 O2 Flow FiO2 Time Delivery Rate 04/25/19 97.5 76 18 111/86 94 11:10 (94) 04/25/19 Nasal 4.0 08:38 Cannula 04/25/19 45 05:05 Intake and Output 04/24/19 04/24/19 04/25/19 1515:00 23:00 07:00 IntakeIntake Total 480 ml 360 ml 820 ml BalanceBalance 480 ml 360 ml 820 ml Exam General: Patient is laying in bed and answers questions appropriately Mentation: Patient is alert and oriented 4, Head: Normocephalic atraumatic Eyes: EOMI, pupils reactive to light Neck: Supple, nontender, midline Respiratory: Mildly coarse to auscultation bilaterally Cardiovascular: regular rate and rhythm, no obvious murmurs Gastrointestinal: soft, non-tender to palpation, bowel sounds heard. Ext: Moves all extremities spontaneously Skin: No new skin lesions Results Results 24hrs Laboratory Tests Test 04/24/19 19:24 04/25/19 00:39 Hemoglobin 8.5 L 6.6 #*L Hematocrit 28.1 L 21.6 #L Medications Medication Current Medications Aspirin (Halfprin) 81 mg DAILY PO Last administered on 04/24/19 09:09; Admin Dose 81 MG; Start 04/13/19 at 09:00 Atorvastatin Calcium (Lipitor) 20 mg QHS PO Last administered on 04/24/19at 21:43; Admin Dose 20 MG; Start 04/12/19 at 21:00 Ondansetron HCl (Zofran Inj) 4 mg Q6H PRN IV NAUSEA AND/OR VOMITING Last administered on 04/15/19at 16:27; Admin Dose 4 MG; Start 04/12/19 at 13:00 Acetaminophen (Tylenol Tab) 650 mg Q6H PRN PO PAIN LEVEL 1-3 OR FEVER Last administered on 04/22/19 00:29; Admin Dose 650 MG; Start 04/12/19 at 13:00 Docusate Sodium (Colace) 100 mg Q12H PRN PO CONSTIPATION; Start 04/12/19 at 13:00 Magnesium Hydroxide (Milk Of Mag) 30 ml DAILY PRN PO CONSTIPATION; Start 04/12/19 at 13:00 Pantoprazole (Protonix Tab) 40 mg DAILY@06 PO Last administered on 04/24/19at 05:47; Admin Dose 40 MG; Start 04/13/19 at 06:00; Status Hold Apixaban (Eliquis) 5 mg BID PO Last administered on 04/24/19 09:10; Admin Dose 5 MG; Start 04/12/19 at 21:00; Status Hold Metoprolol Tartrate (Lopressor) 5 mg Q2H PRN IV heart rate over 110 Last administered on 04/15/19 09:11; Admin Dose 5 MG; Start 04/13/19 at 09:30 Morphine Sulfate (morphine) 2 mg Q4H PRN IV SEVERE PAIN LEVEL 7-10 Last administered on 04/23/19 23:14; Admin Dose 2 MG; Start 04/13/19 at 23:30 IV Flush (NS 10 ml) 10 ml Q8 PRN IV IV PROTOCOL; Start 04/14/19 at 15:00 Lorazepam (Ativan) 1 mg Q6H PRN IV anxiety Last administered on 04/22/19 23:35; Admin Dose 1 MG; Start 04/14/19 at 15:00 [facility] This patient urias... PRN PRN XX WOUND CARE; Start 04/14/19 at 21:00 Amiodarone HCl (Cordarone) 400 mg TID PO Last administered on 04/17/19 13:10; Admin Dose 400 MG; Start 04/16/19 at 13:00; Status Hold Metoprolol Succinate (Toprol Xl) 100 mg BID PO Last administered on 04/24/19 21:43; Admin Dose 100 MG; Start 04/19/19 at 21:00 Albuterol/ Ipratropium (Duoneb) 3 ml Q6HWA RESP THERAPY HHN Last administered on 04/25/19 08:29; Admin Dose 3 ML; Start 04/20/19 at 20:00 Albuterol/ Ipratropium (Duoneb) 3 ml Q2H RESP THERAPY PRN HHN shortness of breath Last administered on 04/24/19 04:16; Admin Dose 3 ML; Start 04/20/19 at 15:00 Budesonide (Pulmicort (Neb)) 0.5 mg BID RESP THERAPY HHN Last administered on 04/25/19 08:29; Admin Dose 0.5 MG; Start 04/20/19 at 20:00 Silver Sulfadiazine (Thermazene 1% 25 Gm) 1 applic DAILY TOP Last administered on 04/25/19 09:10; Admin Dose 1 APPLIC; Start 04/22/19 at 12:00 Bumetanide (Bumex) 1 mg DAILY PO Last administered on 04/25/19 09:11; Admin Dose 1 MG; Start 04/25/19 at 09:00 Pantoprazole 80 mg/Sodium Chloride 100 ml @ 10 mls/hr Q10H IV Last adm inistered on 04/25/19at 06:34; Admin Dose 10 MLS/HR; Start 04/24/19 at 19:30 MARVIN FOX MD Apr 25, 2019 11:15
--- NOTE | 2019-04-25 12:02 | CONS ---
Consultation Date/Type/Reason Admit Date/Time Apr 12, 2019 at 12:21 Initial Consult Date 04/13/19 Type of Consult Pulmonary/critical care Patient is a 63-year-old [place] gentleman who came into the hospital with history of shortness of breath for the last 1 day. Patient denied having any chest pain, any fever, wheezing or any sputum production. Upon evaluation patient was found to be in A. fib with RVR. Patient has been rate controlled. By the time I saw the patient in ICU, patient is sitting comfortably in bed and denied having any shortness of breath, rest pain, or any other symptoms. Past medical history; 1. History of apparent chronic renal insufficiency. 2. History of hypertension. Medications; reviewed. Allergies; none. Social history; patient never smoked. Occupational history; patient is retired. Family history; noncontributory. Review of systems; denies any headache, chest pain, shortness of breath has improved. Denies any coughing, wheezing, sputum production or fever. Denies any abdominal pain, nausea vomiting. Any orthopnea. General exam; elderly male, laying comfortably in bed. Currently in no distress. Requesting Provider: MARVIN FOX MD Date/Time of Note DATE: 04/25/19 TIME: 11:59 24 HR Interval Summary Free Text/Dictation Patient condition is stable. Still complains of dyspnea on exertion. Denies any chest pain, coughing, wheezing. General exam; elderly male, currently no distress. Awake and alert. H ENT exam; supple neck, positive JVD. No lymphadenopathy. Midline trachea. No thyromegaly. Patient does have carious teeth. Pupils are small bilaterally. No neck masses. Chest exam; diminished breath on lung bases. Upper lobes are clear. S1-S2 audible, no murmurs. Irregular rhythm. Abdomen exam; soft, nontender. No organomegaly. Bowel sounds are audible. Extremity exam; trace edema. No clubbing. 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 Chest x-ray was reviewed from yesterday which is showing cardiomegaly with bilateral pleural effusions. Assessment and recommendations; 1. Patient admitted with hypoxemic respiratory failure with hypercapnia due to CHF exacerbation. 2. Acute renal injury with improving renal function. 3.Anemia 4. Chronic atrial fibrillation. 5. History of hypertension. 6. Improving hypercapnia. Continue current supportive care. Patient will be transfused blood. Consider increasing diuretic dosing. Exam/Review of Systems Exam Vitals Vital Signs Date Temp Pulse Resp B/P (MAP) Pulse Ox O2 O2 Flow FiO2 Time Delivery Rate 04/25/19 97.5 76 18 111/86 94 11:10 (94) 04/25/19 Nasal 4.0 08:38 Cannula 04/25/19 45 05:05 Intake and Output 04/24/19 04/24/19 04/25/19 1515:00 23:00 07:00 IntakeIntake Total 480 ml 360 ml 820 ml BalanceBalance 480 ml 360 ml 820 ml Results Result Diagram: 04/25/19 0039 04/24/19 0604 Results 24hrs Laboratory Tests Test 04/24/19 19:24 04/25/19 00:39 Hemoglobin 8.5 L 6.6 #*L Hematocrit 28.1 L 21.6 #L Medications Medication Current Medications Aspirin (Halfprin) 81 mg DAILY PO Last administered on 04/24/19 09:09; Admin Dose 81 MG; Start 04/13/19 at 09:00 Atorvastatin Calcium (Lipitor) 20 mg QHS PO Last administered on 04/24/19 21:43; Admin Dose 20 MG; Start 04/12/19 at 21:00 Ondansetron HCl (Zofran Inj) 4 mg Q6H PRN IV NAUSEA AND/OR VOMITING Last administered on 04/15/19 16:27; Admin Dose 4 MG; Start 04/12/19 at 13:00 Acetaminophen (Tylenol Tab) 650 mg Q6H PRN PO PAIN LEVEL 1-3 OR FEVER Last administered on 04/22/19 00:29; Admin Dose 650 MG; Start 04/12/19 at 13:00 Docusate Sodium (Colace) 100 mg Q12H PRN PO CONSTIPATION; Start 04/12/19 at 13:00 Magnesium Hydroxide (Milk Of Mag) 30 ml DAILY PRN PO CONSTIPATION; Start 04/12/19 at 13:00 Pantoprazole (Protonix Tab) 40 mg DAILY@06 PO Last administered on 04/24/19 05:47; Admin Dose 40 MG; Start 04/13/19 at 06:00; Status Hold Apixaban (Eliquis) 5 mg BID PO Last administered on 04/24/19 09:10; Admin Dose 5 MG; Start 04/12/19 at 21:00; Status Hold Metoprolol Tartrate (Lopressor) 5 mg Q2H PRN IV heart rate over 110 Last admini stered on 04/15/19 09:11; Admin Dose 5 MG; Start 04/13/19 at 09:30 Morphine Sulfate (morphine) 2 mg Q4H PRN IV SEVERE PAIN LEVEL 7-10 Last administered on 04/23/19 23:14; Admin Dose 2 MG; Start 04/13/19 at 23:30 IV Flush (NS 10 ml) 10 ml Q8 PRN IV IV PROTOCOL; Start 04/14/19 at 15:00 Lorazepam (Ativan) 1 mg Q6H PRN IV anxiety Last administered on 04/22/19 23:35; Admin Dose 1 MG; Start 04/14/19 at 15:00 [facility] This patient urias... PRN PRN XX WOUND CARE; Start 04/14/19 at 21:00 Amiodarone HCl (Cordarone) 400 mg TID PO Last administered on 04/17/19 13:10; Admin Dose 400 MG; Start 04/16/19 at 13:00; Status Hold Metoprolol Succinate (Toprol Xl) 100 mg BID PO Last administered on 04/24/19 21:43; Admin Dose 100 MG; Start 04/19/19 at 21:00 Albuterol/ Ipratropium (Duoneb) 3 ml Q6HWA RESP THERAPY HHN Last administered on 04/25/19 08:29; Admin Dose 3 ML; Start 04/20/19 at 20:00 Albuterol/ Ipratropium (Duoneb) 3 ml Q2H RESP THERAPY PRN HHN shortness of breath Last administered on 04/24/19 04:16; Admin Dose 3 ML; Start 04/20/19 at 15:00 Budesonide (Pulmicort (Neb)) 0.5 mg BID RESP THERAPY HHN Last administered on 04/25/19 08:29; Admin Dose 0.5 MG; Start 04/20/19 at 20:00 Silver Sulfadiazine (Thermazene 1% 25 Gm) 1 applic DAILY TOP Last administered on 04/25/19 09:10; Admin Dose 1 APPLIC; Start 04/22/19 at 12:00 Bumetanide (Bumex) 1 mg DAILY PO Last administered on 04/25/19at 09:11; Admin Dose 1 MG; Start 04/25/19 at 09:00 Pantoprazole 80 mg/Sodium Chloride 100 ml @ 10 mls/hr Q10H IV Last administered on 04/25/19at 06:34; Admin Dose 10 MLS/HR; Start 04/24/19 at 19:30 BONI BAER Apr 25, 2019 12:02
--- NOTE | 2019-04-25 13:56 | CONS ---
Assessment/Plan Assessment/Plan Hospital Course (Demo Recall) Summary Assessment and Plan: Assessment: Assessment/Plan Hematochezia Acute on chronic anemia- 2/2 to above S/p Acute hypoxic respiratory failure- stable Bilateral pneumonia Leukocytosis Elevated Tropin -Likely 2/.2 to demand Acute systolic congestive heart failure- improving New onset Afib with RVR -Eliquis on hold DANYA- resolved Elevated LFT- improving- likely 2/2 to hemodynamic instability vs congestion -Hepatitis B Core AB- positive HTN Sleep apnea - on BIPAP qhs Plan: Cardiac clearance Clear liquid today Colonoscopy tomorrow Endoscopy - risks/benefits/alternatives/indications of procedure and sedation/anesthesia discussed with patient who states understanding and gives informed consent to proceed. Monitor H/h- transfuse as needed Patient seen in collaboration with Dr. Devi CC: CAROLE DEVI MD ; Consultation Date/Type/Reason Admit Date/Time Apr 12, 2019 at 12:21 Date of Consultation: Apr 25, 2019 Type of Consult GI Reason for Consultation Hematochezia Date/Time of Note DATE: 04/25/19 TIME: 13:55 Hx of Present Illness This is a 63-year-old male with with past medical history of hypertension, sleep apnea, hyperlipidemia who was admitted to the hospital for acute hypoxic res piratory failure was placed on BiPAP this was secondary to bilateral pneumonia. With work-up also other dx were noted including: Acute congestive heart failure, new onset atrial fibrillation with RVR, DANYA, elevated troponin most likely type II demand, elevated LFTs possibly due to congestion versus hemodynamic instability during hospitalization patient has improved he was placed on Eliquis for atrial fibrillation RVR. Since admission hemoglobin has been slowly trending down with a noted episode of hematochezia last night. Hemoglobin on 04/24/2019 noted to be 8.5 it was rechecked at midnight noted to be 6.6. he is s/p 2 units packed RBCs hemoglobin today at 1300 was 7.3. Patient denies any fu rther episodes of hematochezia. He denies nausea/vomiting, abdominal pain, melena. He has never had colonoscopy and there is no known family history of colon cancer. Patient also denies unintentional weight loss. Review of Systems: [A 12 system, review was conducted and is negative except as noted in the HPI or here.] Past Medical History Medical History: high cholesterol, hypertension, other (sleep apnea ) Home Meds Reported Medications Aspirin* (Aspirin* EC) 81 Mg Tablet.dr, 81 MG PO DAILY, TAB 04/12/19 Atorvastatin Calcium* (Atorvastatin Calcium*) 20 Mg Tablet, 20 MG PO QHS, #30 TAB 04/12/19 Losartan Potassium* (Losartan Potassium*) 100 Mg Tablet, 100 MG PO DAILY, TAB 04/12/19 Amlodipine Besylate* (Amlodipine Besylate*) 10 Mg Tablet, 10 MG PO DAILY, #30 TAB 04/12/19 Medications Current Medications Aspirin (Halfprin) 81 mg DAILY PO Last administered on 04/24/19 09:09; Admin Dose 81 MG; Start 04/13/19 at 09:00 Atorvastatin Calcium (Lipitor) 20 mg QHS PO Last administered on 04/24/19at 21:43; Admin Dose 20 MG; Start 04/12/19 at 21:00 Ondansetron HCl (Zofran Inj) 4 mg Q6H PRN IV NAUSEA AND/OR VOMITING Last administered on 04/15/19at 16:27; Admin Dose 4 MG; Start 04/12/19 at 13:00 Acetaminophen (Tylenol Tab) 650 mg Q6H PRN PO PAIN LEVEL 1-3 OR FEVER Last administered on 04/22/19 00:29; Admin Dose 650 MG; Start 04/12/19 at 13:00 Docusate Sodium (Colace) 100 mg Q12H PRN PO CONSTIPATION; Start 04/12/19 at 13:00 Magnesium Hydroxide (Milk Of Mag) 30 ml DAILY PRN PO CONSTIPATION; Start 04/12/19 at 13:00 Pantoprazole (Protonix Tab) 40 mg DAILY@06 PO Last administered on 04/24/19at 05:47; Admin Dose 40 MG; Start 04/13/19 at 06:00; Status Hold Apixaban (Eliquis) 5 mg BID PO Last administered on 04/24/19 09:10; Admin Dose 5 MG; Start 04/12/19 at 21:00; Status Hold Metoprolol Tartrate (Lopressor) 5 mg Q2H PRN IV heart rate over 110 Last administered on 04/15/19at 09:11; Admin Dose 5 MG; Start 04/13/19 at 09:30 Morphine Sulfate (morphine) 2 mg Q4H PRN IV SEVERE PAIN LEVEL 7-10 Last administered on 04/23/19 23:14; Admin Dose 2 MG; Start 04/13/19 at 23:30 IV Flush (NS 10 ml) 10 ml Q8 PRN IV IV PROTOCOL; Start 04/14/19 at 15:00 Lorazepam (Ativan) 1 mg Q6H PRN IV anxiety Last administered on 04/22/19 23:35; Admin Dose 1 MG; Start 04/14/19 at 15:00 Miscellaneous Information (Pending [facility] Order For Wound Care) This patient urias... PRN PRN XX WOUND CARE; Start 04/14/19 at 21:00 Amiodarone HCl (Cordarone) 400 mg TID PO Last administered on 04/17/19 13:10; Admin Dose 400 MG; Start 04/16/19 at 13:00; Status Hold Metoprolol Succinate (Toprol Xl) 100 mg BID PO Last administered on 04/24/19 21:43; Admin Dose 100 MG; Start 04/19/19 at 21:00 Albuterol/ Ipratropium (Duoneb) 3 ml Q6HWA RESP THERAPY HHN Last administered on 04/25/19 08:29; Admin Dose 3 ML; Start 04/20/19 at 20:00 Albuterol/ Ipratropium (Duoneb) 3 ml Q2H RESP THERAPY PRN HHN shortness of breath Last administered on 04/24/19 04:16; Admin Dose 3 ML; Start 04/20/19 at 15:00 Budesonide (Pulmicort (Neb)) 0.5 mg BID RESP THERAPY HHN Last administered on 04/25/19 08:29; Admin Dose 0.5 MG; Start 04/20/19 at 20:00 Silver Sulfadiazine (Thermazene 1% 25 Gm) 1 applic DAILY TOP Last administered on 04/25/19 09:10; Admin Dose 1 APPLIC; Start 04/22/19 at 12:00 Bumetanide (Bumex) 1 mg DAILY PO Last administered on 04/25/19 09:11; Admin D ose 1 MG; Start 04/25/19 at 09:00 Pantoprazole 80 mg/Sodium Chloride 100 ml @ 10 mls/hr Q10H IV Last administered on 04/25/19 06:34; Admin Dose 10 MLS/HR; Start 04/24/19 at 19:30 Allergies: Coded Allergies: No Known Allergy (Unverified , 04/12/19) Past Surgical History Past Surgical Hx: other (inguinal hernia repair) Social History Alcohol Use: none Smoking Status: Never smoker Drug Use: none Exam/Review of Systems Exam Vitals Vital Signs Date Temp Pulse Resp B/P (MAP) Pulse Ox O2 O2 Flow FiO2 Time Delivery Rate 04/25/19 97.5 76 18 111/86 94 11:10 (94) 04/25/19 Nasal 4.0 08:38 Cannula 04/25/19 45 05:05 Intake and Output 04/24/19 04/24/19 04/25/19 1515:00 23:00 07:00 IntakeIntake Total 480 ml 360 ml 820 ml BalanceBalance 480 ml 360 ml 820 ml Exam PHYSICAL EXAMINATION: GENERAL:Alert & oriented x 3, in no acute distress SKIN: No lesions HEAD: Normocephalic, atraumatic, no tenderness. EYES: Pupils equal reactive to light and accommodation, full extraocular movements, sclera clear, non-icteric, no discharge. EARS/NOSE AND THROAT: Ears normal, nose normal. NECK: Supple, no masses CHEST: Inspection within normal limits. CARDIOVASCULAR: Heart: Irregular rate and rhythm- HR low 100's RESPIRATORY: Diminished - O2 at [address] GASTROINTESTINAL AND LIVER: Abdomen: Soft, non tenderness, no guarding, no rebou nd tenderness, normoactive bowel sounds. Rectal: Deferred. EXTREMITIES: No cyanosis, clubbing or edema. Results Result Diagram: 04/25/19 1305 04/24/19 0604 Results 24hrs Laboratory Tests Test 04/24/19 19:24 04/25/19 00:39 04/25/19 13:05 Hemoglobin 8.5 L 6.6 #*L 7.3 L Hematocrit 28.1 L 21.6 #L 23.3 L White Blood Count 17.2 #H Red Blood Count 2.54 #L Mean Corpuscular Volume 91.7 Mean Corpuscular Hemoglobin 28.7 L Mean Corpuscular Hemoglobin Concent 31.3 L Red Cell Distribution Width 15.4 H Platelet Count 157 # Mean Platelet Volume 9.8 Immature Granulocytes % 0.800 H Neutrophils % 86.0 H Lymphocytes % 7.7 L Monocytes % 5.3 Eosinophils % 0.0 Basophils % 0.2 Nucleated Red Blood Cells % 0.3 H Immature Granulocytes # 0.130 H Neutrophils # 14.8 H Lymphocytes # 1.3 Monocytes # 0.9 Eosinophils # 0.0 Basophils # 0.0 Nucleated Red Blood Cells # 0.1 H Sodium Level 143 Potassium Level 4.4 Chloride Level 106 Carbon Dioxide Level 32 H Anion Gap 5 Blood Urea Nitrogen 35 H Creatinine 1.16 Est Glomerular Filtrat Rate mL/min > 60 Glucose Level 124 Calcium Level 7.8 L Phosphorus Level 4.4 Magnesium Level 1.9 Medications Medication Current Medications Aspirin (Halfprin) 81 mg DAILY PO Last administered on 04/24/19 09:09; Admin Dose 81 MG; Start 04/13/19 at 09:00 Atorvastatin Calcium (Lipitor) 20 mg QHS PO Last administered on 04/24/19 21:43; Admin Dose 20 MG; Start 04/12/19 at 21:00 Ondansetron HCl (Zofran Inj) 4 mg Q6H PRN IV NAUSEA AND/OR VOMITING Last administered on 04/15/19 16:27; Admin Dose 4 MG; Start 04/12/19 at 13:00 Acetaminophen (Tylenol Tab) 650 mg Q6H PRN PO PAIN LEVEL 1-3 OR FEVER Last administered on 04/22/19 00:29; Admin Dose 650 MG; Start 04/12/19 at 13:00 Docusate Sodium (Colace) 100 mg Q12H PRN PO CONSTIPATION; Start 04/12/19 at 13:00 Magnesium Hydroxide (Milk Of Mag) 30 ml DAILY PRN PO CONSTIPATION; Start 04/12/19 at 13:00 Pantoprazole (Protonix Tab) 40 mg DAILY@06 PO Last administered on 04/24/19 05:47; Admin Dose 40 MG; Start 04/13/19 at 06:00; Status Hold Apixaban (Eliquis) 5 mg BID PO Last administered on 04/24/19 09:10; Admin Dose 5 MG; Start 04/12/19 at 21:00; Status Hold Metoprolol Tartrate (Lopressor) 5 mg Q2H PRN IV heart rate over 110 Last administered on 04/15/19 09:11; Admin Dose 5 MG; Start 04/13/19 at 09:30 Morphine Sulfate (morphine) 2 mg Q4H PRN IV SEVERE PAIN LEVEL 7-10 Last administered on 04/23/19 23:14; Admin Dose 2 MG; Start 04/13/19 at 23:30 IV Flush (NS 10 ml) 10 ml Q8 PRN IV IV PROTOCOL; Start 04/14/19 at 15:00 Lorazepam (Ativan) 1 mg Q6H PRN IV anxiety Last administered on 04/22/19 23:35; Admin Dose 1 MG; Start 04/14/19 at 15:00 Miscellaneous Information (Pending [facility] Order For Wound Care) This patient urias... PRN PRN XX WOUND CARE; Start 04/14/19 at 21:00 Amiodarone HCl (Cordarone) 400 mg TID PO Last administered on 04/17/19 13:10; Admin Dose 400 MG; Start 04/16/19 at 13:00; Status Hold Metoprolol Succinate (Toprol Xl) 100 mg BID PO Last administered on 04/24/19 21:43; Admin Dose 100 MG; Start 04/19/19 at 21:00 Albuterol/ Ipratropium (Duoneb) 3 ml Q6HWA RESP THERAPY HHN Last administered on 04/25/19 08:29; Admin Dose 3 ML; Start 04/20/19 at 20:00 Albuterol/ Ipratropium (Duoneb) 3 ml Q2H RESP THERAPY PRN HHN shortness of breath Last administered on 04/24/19 04:16; Admin Dose 3 ML; Start 04/20/19 at 15:00 Budesonide (Pulmicort (Neb)) 0.5 mg BID RESP THERAPY HHN Last administered on 04/25/19 08:29; Admin Dose 0.5 MG; Start 04/20/19 at 20:00 Silver Sulfadiazine (Thermazene 1% 25 Gm) 1 applic DAILY TOP Last administered on 04/25/19 09:10; Admin Dose 1 APPLIC; Start 04/22/19 at 12:00 Bumetanide (Bumex) 1 mg DAILY PO Last administered on 04/25/19 09:11; Admin Dose 1 MG; Start 04/25/19 at 09:00 Pantoprazole 80 mg/Sodium Chloride 100 ml @ 10 mls/hr Q10H IV Last administered on 04/25/19at 06:34; Admin Dose 10 MLS/HR; Start 04/24/19 at 19:30 ROMAINE PENG Apr 25, 2019 13:56
[2019-04-25] MEDS ORDERED: BISACODYL (EC) 5 MG TAB PO ONE (14:00)
[2019-04-25] MEDS ORDERED: BUMETANIDE 0.5 MG TAB PO ONE (17:00)
[2019-04-25] MEDS ORDERED: MAGNESIUM CITRATE 300 ML BTL PO ONE (17:30)
[2019-04-25] MEDS ORDERED: POLYETHYLENE GLYCOL 3350 119 GM POWDER PO ONE (18:30)
[2019-04-25] MEDS: ATORVASTATIN 20 MG TAB PO SCH (21:01)
[2019-04-25] MEDS ORDERED: SOD CHLORIDE 0.9% 1,000 ML IV ONE (23:30)
[2019-04-26] VITALS (10 sets, daily range): BP systolic 91–138; BP diastolic 69–89; PULSE 59–119; RESP 16–22
[2019-04-26] MEDS: PANTOPRAZOLE IV 80 MG in SOD CHLORIDE 0.9% 100 ML IV SCH ×2 (02:32→12:14)
[2019-04-26] MEDS ORDERED: POLYETHYLENE GLYCOL 3350 119 GM POWDER PO ONE (06:00)
[2019-04-26] MEDS: ALBUTEROL/IPRATROPIUM (NEB) 3 ML AMP HHN SCH ×3 (07:46→19:40)
[2019-04-26] MEDS: BUDESONIDE (NEB) 0.5MG/2ML AMP HHN SCH ×2 (07:47→19:40)
[2019-04-26] MEDS ORDERED: BISACODYL (EC) 5 MG TAB PO ONE (08:00)
[2019-04-26] MEDS: ASPIRIN (EC) 81 MG TAB PO SCH (08:23)
[2019-04-26] MEDS: METOPROLOL (XL) 100 MG TAB PO SCH ×2 (08:23→20:48)
[2019-04-26] MEDS: BUMETANIDE 1 MG TAB PO SCH (08:23)
[2019-04-26] MEDS: SILVER SULFADIAZINE 1% 25 GM CR TOP SCH (08:24)
--- NOTE | 2019-04-26 10:43 | CONS ---
Consultation Date/Type/Reason Admit Date/Time Apr 12, 2019 at 12:21 Initial Consult Date 04/13/19 Type of Consult Pulmonary/critical care Patient is a 63-year-old [place] gentleman who came into the hospital with history of shortness of breath for the last 1 day. Patient denied having any chest pain, any fever, wheezing or any sputum production. Upon evaluation patient was found to be in A. fib with RVR. Patient has been rate controlled. By the time I saw the patient in ICU, patient is sitting comfortably in bed and denied having any shortness of breath, rest pain, or any other symptoms. Past medical history; 1. History of apparent chronic renal insufficiency. 2. History of hypertension. Medications; reviewed. Allergies; none. Social history; patient never smoked. Occupational history; patient is retired. Family history; noncontributory. Review of systems; denies any headache, chest pain, shortness of breath has improved. Denies any coughing, wheezing, sputum production or fever. Denies any abdominal pain, nausea vomiting. Any orthopnea. General exam; elderly male, laying comfortably in bed. Currently in no distress. Requesting Provider: MARVIN FOX MD Date/Time of Note DATE: 04/26/19 TIME: 10:40 24 HR Interval Summary Free Text/Dictation Patient's condition is stable. Still having lower GI bleed with fresh blood. Patient denies any shortness of breath, coughing, wheezing. General exam; elderly male, laying comfortably in bed. Awake and alert. Currently in no distress. H ENT exam; supple neck, no JVD. No lymphadenopathy. Midline trachea. No thyromegaly. Patient has fair dentition. No neck masses. Chest exam; clear to auscultation. S1-S2 audible, no murmurs. Regular rhythm. Abdomen exam; soft, no organomegaly. Nontender. Bowel sounds audible. Extremity exam; no peripheral edema clubbing. 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 Assessment and recommendations; 1. Patient admitted with hypoxemia due to CHF exacerbation with mild hypercapnia with interval improvement. 2. Possibly underlying chronic renal insufficiency with interval improvement as well. 3. Acute lower GI bleed. 4. Anemia. 5. History of cardiac arrhythmia. Chronic atrial fibrillation. 6. Hypertension. 7. Mild thrombocytopenia. Continue current supportive care. Patient scheduled for colonoscopy today. Patient has improved in all other parameters. Exam/Review of Systems Exam Vitals Vital Signs Date Temp Pulse Resp B/P (MAP) Pulse Ox O2 O2 Flow FiO2 Time Delivery Rate 04/26/19 Nasal 4.0 08:00 Cannula 04/26/19 68 20 99 07:45 04/26/19 97.5 91/69 (76) 07:36 04/26/19 40 05:11 Intake and Output 04/25/19 04/25/19 04/26/19 1515:00 23:00 07:00 IntakeIntake Total 300 ml 1390 ml 70 ml OutputOutput Total 300 ml 150 ml BalanceBalance 0 ml 1390 ml -80 ml Results Result Diagram: 04/26/19 0208 04/25/19 1305 Results 24hrs Laboratory Tests Test 04/25/19 13:05 04/25/19 14:40 04/25/19 16:25 04/25/19 21:57 White Blood Count 17.2 #H 14.3 H Red Blood Count 2.54 #L 2.68 L Hemoglobin 7.3 L 6.9 *L 7.2 L 7.6 L Hematocrit 23.3 L 21.3 L 22.0 L 23.3 L Mean Corpuscular Volume 91.7 86.9 Mean Corpuscular 28.7 L 28.4 L Hemoglobin Mean Corpuscular 31.3 L 32.6 Hemoglobin Concent Red Cell Distribution 15.4 H 15.4 H Width Platelet Count 157 # 170 Mean Platelet Volume 9.8 9.5 Immature Granulocytes % 0.800 H 0.600 H Neutrophils % 86.0 H 81.4 H Lymphocytes % 7.7 L 10.5 L Monocytes % 5.3 7.2 Eosinophils % 0.0 0.1 Basophils % 0.2 0.2 Nucleated Red Blood 0.3 H 0.2 H Cells % Immature Granulocytes # 0.130 H 0.080 H Neutrophils # 14.8 H 11.6 H Lymphocytes # 1.3 1.5 Monocytes # 0.9 1.0 H Eosinophils # 0.0 0.0 Basophils # 0.0 0.0 Nucleated Red Blood 0.1 H 0.0 Cells # Sodium Level 143 Potassium Level 4.4 Chloride Level 106 Carbon Dioxide Level 32 H Anion Gap 5 Blood Urea Nitrogen 35 H Creatinine 1.16 Est Glomerular Filtrat > 60 Rate mL/min Glucose Level 124 Calcium Level 7.8 L Phosphorus Level 4.4 Magnesium Level 1.9 Test 04/26/19 02:08 White Blood Count 13.1 H Red Blood Count 2.52 L Hemoglobin 7.3 L Hematocrit 22.1 L Mean Corpuscular Volume 87.7 Mean Corpuscular 29.0 Hemoglobin Mean Corpuscular 33.0 Hemoglobin Concent Red Cell Distribution 15.6 H Width Platelet Count 167 Mean Platelet Volume 9.5 Immature Granulocytes % 0.800 H Neutrophils % 82.1 H Lymphocytes % 10.4 L Monocytes % 6.1 Eosinophils % 0.4 Basophils % 0.2 Nucleated Red Blood 0.4 H Cells % Immature Granulocytes # 0.110 H Neutrophils # 10.7 H Lymphocytes # 1.4 Monocytes # 0.8 Eosinophils # 0.1 Basophils # 0.0 Nucleated Red Blood 0.1 H Cells # Medications Medication Current Medications Aspirin (Halfprin) 81 mg DAILY PO Last administered on 04/24/19 09:09; Admin Dose 81 MG; Start 04/13/19 at 09:00 Atorvastatin Calcium (Lipitor) 20 mg QHS PO Last administered on 04/25/19at 21:01; Admin Dose 20 MG; Start 04/12/19 at 21:00 Ondansetron HCl (Zofran Inj) 4 mg Q6H PRN IV NAUSEA AND/OR VOMITING Last administered on 04/15/19 16:27; Admin Dose 4 MG; Start 04/12/19 at 13:00 Acetaminophen (Tylenol Tab) 650 mg Q6H PRN PO PAIN LEVEL 1-3 OR FEVER Last administered on 04/22/19 00:29; Admin Dose 650 MG; Start 04/12/19 at 13:00 Docusate Sodium (Colace) 100 mg Q12H PRN PO CONSTIPATION; Start 04/12/19 at 13:00 Magnesium Hydroxide (Milk Of Mag) 30 ml DAILY PRN PO CONSTIPATION; Start 04/12/19 at 13:00 Pantoprazole (Protonix Tab) 40 mg DAILY@06 PO Last administered on 04/24/19at 05:47; Admin Dose 40 MG; Start 04/13/19 at 06:00; Status Hold Apixaban (Eliquis) 5 mg BID PO Last administered on 04/24/19at 09:10; Admin Dose 5 MG; Start 04/12/19 at 21:00; Status Hold Metoprolol Tartrate (Lopressor) 5 mg Q2H PRN IV heart rate over 110 Last administered on 04/15/19 09:11; Admin Dose 5 MG; Start 04/13/19 at 09:30 Morphine Sulfate (morphine) 2 mg Q4H PRN IV SEVERE PAIN LEVEL 7-10 Last administered on 04/23/19 23:14; Admin Dose 2 MG; Start 04/13/19 at 23:30 IV Flush (NS 10 ml) 10 ml Q8 PRN IV IV PROTOCOL; Start 04/14/19 at 15:00 Lorazepam (Ativan) 1 mg Q6H PRN IV anxiety Last administered on 04/22/19 23:35; Admin Dose 1 MG; Start 04/14/19 at 15:00 [facility] This patient urias... PRN PRN XX WOUND CARE; Start 04/14/19 at 21:00 Amiodarone HCl (Cordarone) 400 mg TID PO Last administered on 04/17/19 13:10; Admin Dose 400 MG; Start 04/16/19 at 13:00; Status Hold Metoprolol Succinate (Toprol Xl) 100 mg BID PO Last administered on 04/24/19 21:43; Admin Dose 100 MG; Start 04/19/19 at 21:00 Albuterol/ Ipratropium (Duoneb) 3 ml Q6HWA RESP THERAPY HHN Last administered on 04/26/19 07:46; Admin Dose 3 ML; Start 04/20/19 at 20:00 Albuterol/ Ipratropium (Duoneb) 3 ml Q2H RESP THERAPY PRN HHN shortness of breath Last administered on 04/24/19 04:16; Admin Dose 3 ML; Start 04/20/19 at 15:00 Budesonide (Pulmicort (Neb)) 0.5 mg BID RESP THERAPY HHN Last administered on 04/26/19 07:47; Admin Dose 0.5 MG; Start 04/20/19 at 20:00 Silver Sulfadiazine (Thermazene 1% 25 Gm) 1 applic DAILY TOP Last administered on 04/26/19 08:24; Admin Dose 1 APPLIC; Start 04/22/19 at 12:00 Bumetanide (Bumex) 1 mg DAILY PO Last administered on 04/26/19at 08:23; Admin Dose 1 MG; Start 04/25/19 at 09:00 Pantoprazole 80 mg/Sodium Chloride 100 ml @ 10 mls/hr Q10H IV Last administered on 04/26/19at 02:32; Admin Dose 10 MLS/HR; Start 04/24/19 at 19:30 BONI BAER Apr 26, 2019 10:42
--- NOTE | 2019-04-26 11:59 | CONS ---
Assessment/Plan Assessment/Plan Assessment/Plan (Daily) 1. Oliguric Acute kidney injury on CKD 2/2 Hemodynamics from CHF and atrial fibrillation RVR , also contributing ATN from sepsis 2. acute hypoxic respiratory failure requiring BIPAP due to Bilateral PNA and CHF 3. sepsis due to Bilateral PNA 4. Acute CHF exacerbation with EF 20% on ECHO, most likely new onset since pt has been denying any H/o CHF 5. New onset afib with RVR- on cardizem gtt 6. H/o HTN 7. H/o Sleep apnea 8. H/o Possible CKD but pt has been denying it.. His Renal Us showed normal echogenicity of kidneys but kidneys are small in size, The right kidney measures 9.5 cm. The left kidney measures 9.2 cm. Plan: -BUN/Cr improved to 31/1.19, Na 145- other electrolytes stable- , bumex 1 mg po daily . Monitor electrolytes and replace as needed Echo showed EF 20% wiht Moderate MR, moderate to severe TR, Enlarged RV and RVSP 52 Amiodarone 400mg PO TID and metoprolol 100mg PO BID for rate conrol, eliquis for anticoagulation will follow up Consultation Date/Type/Reason Admit Date/Time Apr 12, 2019 at 12:21 Initial Consult Date 04/13/19 Type of Consult NEPHROLOGY Requesting Provider: MARVIN FOX MD Date/Time of Note DATE: 04/26/19 TIME: 11:59 Exam/Review of Systems Exam Vitals Vital Signs Date Temp Pulse Resp B/P (MAP) Pulse Ox O2 O2 Flow FiO2 Time Delivery Rate 04/26/19 97.8 59 18 106/69 100 11:21 (81) 04/26/19 Nasal 4.0 08:00 Cannula 04/26/19 40 05:11 Intake and Output 04/25/19 04/25/19 04/26/19 1515:00 23:00 07:00 IntakeIntake Total 300 ml 1390 ml 70 ml OutputOutput Total 300 ml 150 ml BalanceBalance 0 ml 1390 ml -80 ml Exam Constitutional: alert awake communicative Respiratory: decreased BS+, no wheezing Cardiovascular: regular rate and rhythm, nl pulses Gastrointestinal: soft, non-tender Musculoskeletal: muscle weakness, swelling (1+ pitting edema ) Extremities: normal pulses Neurological: alert awake, communicative, non focal Results Result Diagram: 04/26/19 1052 04/25/19 1305 Results 24hrs Laboratory Tests Test 04/25/19 13:05 04/25/19 14:40 04/25/19 16:25 04/25/19 21:57 White Blood Count 17.2 #H 14.3 H Red Blood Count 2.54 #L 2.68 L Hemoglobin 7.3 L 6.9 *L 7.2 L 7.6 L Hematocrit 23.3 L 21.3 L 22.0 L 23.3 L Mean Corpuscular Volume 91.7 86.9 Mean Corpuscular 28.7 L 28.4 L Hemoglobin Mean Corpuscular 31.3 L 32.6 Hemoglobin Concent Red Cell Distribution 15.4 H 15.4 H Width Platelet Count 157 # 170 Mean Platelet Volume 9.8 9.5 Immature Granulocytes % 0.800 H 0.600 H Neutrophils % 86.0 H 81.4 H Lymphocytes % 7.7 L 10.5 L Monocytes % 5.3 7.2 Eosinophils % 0.0 0.1 Basophils % 0.2 0.2 Nucleated Red Blood 0.3 H 0.2 H Cells % Immature Granulocytes # 0.130 H 0.080 H Neutrophils # 14.8 H 11.6 H Lymphocytes # 1.3 1.5 Monocytes # 0.9 1.0 H Eosinophils # 0.0 0.0 Basophils # 0.0 0.0 Nucleated Red Blood 0.1 H 0.0 Cells # Sodium Level 143 Potassium Level 4.4 Chloride Level 106 Carbon Dioxide Level 32 H Anion Gap 5 Blood Urea Nitrogen 35 H Creatinine 1.16 Est Glomerular Filtrat > 60 Rate mL/min Glucose Level 124 Calcium Level 7.8 L Phosphorus Level 4.4 Magnesium Level 1.9 Test 04/26/19 02:08 04/26/19 10:52 White Blood Count 13.1 H 11.2 H Red Blood Count 2.52 L 3.01 L Hemoglobin 7.3 L 8.6 L Hematocrit 22.1 L 27.2 #L Mean Corpuscular Volume 87.7 90.4 Mean Corpuscular 29.0 28.6 L Hemoglobin Mean Corpuscular 33.0 31.6 L Hemoglobin Concent Red Cell Distribution 15.6 H 15.8 H Width Platelet Count 167 175 Mean Platelet Volume 9.5 9.2 Immature Granulocytes % 0.800 H 0.600 H Neutrophils % 82.1 H 78.2 H Lymphocytes % 10.4 L 12.3 L Monocytes % 6.1 8.0 Eosinophils % 0.4 0.6 Basophils % 0.2 0.3 Nucleated Red Blood 0.4 H 0.4 H Cells % Immature Granulocytes # 0.110 H 0.070 H Neutrophils # 10.7 H 8.7 H Lymphocytes # 1.4 1.4 Monocytes # 0.8 0.9 Eosinophils # 0.1 0.1 Basophils # 0.0 0.0 Nucleated Red Blood 0.1 H 0.0 Cells # Medications Medication Current Medications Aspirin (Halfprin) 81 mg DAILY PO Last administered on 04/24/19 09:09; Admin Dose 81 MG; Start 04/13/19 at 09:00 Atorvastatin Calcium (Lipitor) 20 mg QHS PO Last administered on 04/25/19 21:01; Admin Dose 20 MG; Start 04/12/19 at 21:00 Ondansetron HCl (Zofran Inj) 4 mg Q6H PRN IV NAUSEA AND/OR VOMITING Last administered on 04/15/19 16:27; Admin Dose 4 MG; Start 04/12/19 at 13:00 Acetaminophen (Tylenol Tab) 650 mg Q6H PRN PO PAIN LEVEL 1-3 OR FEVER Last administered on 04/22/19 00:29; Admin Dose 650 MG; Start 04/12/19 at 13:00 Docusate Sodium (Colace) 100 mg Q12H PRN PO CONSTIPATION; Start 04/12/19 at 13:00 Magnesium Hydroxide (Milk Of Mag) 30 ml DAILY PRN PO CONSTIPATION; Start 04/12/19 at 13:00 Pantoprazole (Protonix Tab) 40 mg DAILY@06 PO Last administered on 04/24/19 05:47; Admin Dose 40 MG; Start 04/13/19 at 06:00; Status Hold Apixaban (Eliquis) 5 mg BID PO Last administered on 04/24/19 09:10; Admin Dose 5 MG; Start 04/12/19 at 21:00; Status Hold Metoprolol Tartrate (Lopressor) 5 mg Q2H PRN IV heart rate over 110 Last administered on 04/15/19 09:11; Admin Dose 5 MG; Start 04/13/19 at 09:30 Morphine Sulfate (morphine) 2 mg Q4H PRN IV SEVERE PAIN LEVEL 7-10 Last administered on 04/23/19 23:14; Admin Dose 2 MG; Start 04/13/19 at 23:30 IV Flush (NS 10 ml) 10 ml Q8 PRN IV IV PROTOCOL; Start 04/14/19 at 15:00 Lorazepam (Ativan) 1 mg Q6H PRN IV anxiety Last administered on 04/22/19 23:35; Admin Dose 1 MG; Start 04/14/19 at 15:00 Miscellaneous Information (Pending [facility] Order For Wound Care) This patient urias... PRN PRN XX WOUND CARE; Start 04/14/19 at 21:00 Amiodarone HCl (Cordarone) 400 mg TID PO Last administered on 04/17/19 13:10; Admin Dose 400 MG; Start 04/16/19 at 13:00; Status Hold Metoprolol Succinate (Toprol Xl) 100 mg BID PO Last administered on 04/24/19 21:43; Admin Dose 100 MG; Start 04/19/19 at 21:00 Albuterol/ Ipratropium (Duoneb) 3 ml Q6HWA RESP THERAPY HHN Last administered on 04/26/19 07:46; Admin Dose 3 ML; Start 04/20/19 at 20:00 Albuterol/ Ipratropium (Duoneb) 3 ml Q2H RESP THERAPY PRN HHN shortness of breath Last administered on 04/24/19 04:16; Admin Dose 3 ML; Start 04/20/19 at 15:00 Budesonide (Pulmicort (Neb)) 0.5 mg BID RESP THERAPY HHN Last administered on 04/26/19 07:47; Admin Dose 0.5 MG; Start 04/20/19 at 20:00 Silver Sulfadiazine (Thermazene 1% 25 Gm) 1 applic DAILY TOP Last administered on 04/26/19 08:24; Admin Dose 1 APPLIC; Start 04/22/19 at 12:00 Bumetanide (Bumex) 1 mg DAILY PO Last administered on 04/26/19 08:23; Admin Dose 1 MG; Start 04/25/19 at 09:00 Pantoprazole 80 mg/Sodium Chloride 100 ml @ 10 mls/hr Q10H IV Last administered on 04/26/19at 02:32; Admin Dose 10 MLS/HR; Start 04/24/19 at 19:30 RYAN VICENTE MD Apr 26, 2019 11:59
--- NOTE | 2019-04-26 16:15 | CONS ---
Assessment/Plan Cardiology NYHA: IV Heart Failure Type: Acute Heart Failure Type: Both Assessment/Plan Hospital Course (Demo Recall) Atrial fibrillation Acute decompensated systolic congestive heart failure, improved Cardia myopathy Mitral and tricuspid valve regurgitation GI bleed Patient with overall improved respiratory status Diuretics as per nephrology Titrate beta-elsa as needed for heart rate control Currently off anticoagulation secondary to GI bleed Patient with improvement in respiratory status, speaking to me in full sentences without dyspnea. Given his risk factors, patient is at least at an intermediate risk for any untoward cardiac events for endoscopy, given GI bleed and severe anemia, the benefits likely outweigh the risks. Consultation Date/Type/Reason Admit Date/Time Apr 12, 2019 at 12:21 Initial Consult Date 04/25/19 Type of Consult Cardiology Requesting Provider: MARVIN FOX MD Date/Time of Note DATE: 04/26/19 TIME: 16:11 24 HR Interval Summary Free Text/Dictation Denies current shortness of breath, palpitations or chest pain Exam/Review of Systems Vital Signs Vitals Vital Signs Date Temp Pulse Resp B/P (MAP) Pulse Ox O2 O2 Flow FiO2 Time Delivery Rate 04/26/19 96.7 90 16 114/89 100 15:09 (97) 04/26/19 Nasal 4.0 08:00 Cannula 04/26/19 40 05:11 Intake and Output 04/25/19 04/25/19 04/26/19 1515:00 23:00 07:00 IntakeIntake Total 300 ml 1390 ml 70 ml OutputOutput Total 300 ml 150 ml BalanceBalance 0 ml 1390 ml -80 ml Exam Constitutional: alert, oriented Head: normocephalic Respiratory: other (Coarse breath sounds bilaterally, no wheezing) Cardiovascular: irregular rhythm, systolic murmur (S1-S2 heard) Gastrointestinal: soft, non-tender, bowel sounds Extremities: other (No significant edema) Labs Result Diagram: 04/26/19 1052 04/26/19 1052 Results 24hrs Laboratory Tests Test 04/25/19 16:25 04/25/19 21:57 04/26/19 02:08 04/26/19 10:52 Hemoglobin 7.2 L 7.6 L 7.3 L 8.6 L Hematocrit 22.0 L 23.3 L 22.1 L 27.2 #L White Blood Count 14.3 H 13.1 H 11.2 H Red Blood Count 2.68 L 2.52 L 3.01 L Mean Corpuscular Volume 86.9 87.7 90.4 Mean Corpuscular 28.4 L 29.0 28.6 L Hemoglobin Mean Corpuscular 32.6 33.0 31.6 L Hemoglobin Concent Red Cell Distribution 15.4 H 15.6 H 15.8 H Width Platelet Count 170 167 175 Mean Platelet Volume 9.5 9.5 9.2 Immature Granulocytes % 0.600 H 0.800 H 0.600 H Neutrophils % 81.4 H 82.1 H 78.2 H Lymphocytes % 10.5 L 10.4 L 12.3 L Monocytes % 7.2 6.1 8.0 Eosinophils % 0.1 0.4 0.6 Basophils % 0.2 0.2 0.3 Nucleated Red Blood 0.2 H 0.4 H 0.4 H Cells % Immature Granulocytes # 0.080 H 0.110 H 0.070 H Neutrophils # 11.6 H 10.7 H 8.7 H Lymphocytes # 1.5 1.4 1.4 Monocytes # 1.0 H 0.8 0.9 Eosinophils # 0.0 0.1 0.1 Basophils # 0.0 0.0 0.0 Nucleated Red Blood 0.0 0.1 H 0.0 Cells # Sodium Level 145 H Potassium Level 3.7 Chloride Level 104 Carbon Dioxide Level 34 H Anion Gap 7 Blood Urea Nitrogen 31 H Creatinine 1.19 Est Glomerular Filtrat > 60 Rate mL/min Glucose Level 96 Calcium Level 8.1 L Phosphorus Level 4.4 Magnesium Level 2.2 Albumin 3.0 L Medications Medications Current Medications Aspirin (Halfprin) 81 mg DAILY PO Last administered on 04/24/19at 09:09; Admin Dose 81 MG; Start 04/13/19 at 09:00 Atorvastatin Calcium (Lipitor) 20 mg QHS PO Last administered on 04/25/19at 21:01; Admin Dose 20 MG; Start 04/12/19 at 21:00 Ondansetron HCl (Zofran Inj) 4 mg Q6H PRN IV NAUSEA AND/OR VOMITING Last administered on 04/15/19at 16:27; Admin Dose 4 MG; Start 04/12/19 at 13:00 Acetaminophen (Tylenol Tab) 650 mg Q6H PRN PO PAIN LEVEL 1-3 OR FEVER Last administered on 04/22/19 00:29; Admin Dose 650 MG; Start 04/12/19 at 13:00 Docusate Sodium (Colace) 100 mg Q12H PRN PO CONSTIPATION; Start 04/12/19 at 13:00 Magnesium Hydroxide (Milk Of Mag) 30 ml DAILY PRN PO CONSTIPATION; Start 04/12/19 at 13:00 Pantoprazole (Protonix Tab) 40 mg DAILY@06 PO Last administered on 04/24/19 05:47; Admin Dose 40 MG; Start 04/13/19 at 06:00; Status Hold Apixaban (Eliquis) 5 mg BID PO Last administered on 04/24/19 09:10; Admin Dose 5 MG; Start 04/12/19 at 21:00; Status Hold Metoprolol Tartrate (Lopressor) 5 mg Q2H PRN IV heart rate over 110 Last administered on 04/15/19 09:11; Admin Dose 5 MG; Start 04/13/19 at 09:30 Morphine Sulfate (morphine) 2 mg Q4H PRN IV SEVERE PAIN LEVEL 7-10 Last administered on 04/23/19 23:14; Admin Dose 2 MG; Start 04/13/19 at 23:30 IV Flush (NS 10 ml) 10 ml Q8 PRN IV IV PROTOCOL; Start 04/14/19 at 15:00 Lorazepam (Ativan) 1 mg Q6H PRN IV anxiety Last administered on 04/22/19 23:35; Admin Dose 1 MG; Start 04/14/19 at 15:00 Miscellaneous Information [facility] This patient urias... PRN PRN XX WOUND CARE; Start 04/14/19 at 21:00 Amiodarone HCl (Cordarone) 400 mg TID PO Last administered on 04/17/19 13:10; Admin Dose 400 MG; Start 04/16/19 at 13:00; Status Hold Metoprolol Succinate (Toprol Xl) 100 mg BID PO Last administered on 04/24/19 21:43; Admin Dose 100 MG; Start 04/19/19 at 21:00 Albuterol/ Ipratropium (Duoneb) 3 ml Q6HWA RESP THERAPY HHN Last administered on 04/26/19 07:46; Admin Dose 3 ML; Start 04/20/19 at 20:00 Albuterol/ Ipratropium (Duoneb) 3 ml Q2H RESP THERAPY PRN HHN shortness of breath Last administered on 04/24/19at 04:16; Admin Dose 3 ML; Start 04/20/19 at 15:00 Budesonide (Pulmicort (Neb)) 0.5 mg BID RESP THERAPY HHN Last administered on 04/26/19 07:47; Admin Dose 0.5 MG; Start 04/20/19 at 20:00 Silver Sulfadiazine (Thermazene 1% 25 Gm) 1 applic DAILY TOP Last administered on 04/26/19 08:24; Admin Dose 1 APPLIC; Start 04/22/19 at 12:00 Bumetanide (Bumex) 1 mg DAILY PO Last administered on 04/26/19 08:23; Admin Dose 1 MG; Start 04/25/19 at 09:00 Pantoprazole 80 mg/Sodium Chloride 100 ml @ 10 mls/hr Q10H IV Last admini stered on 04/26/19at 12:14; Admin Dose 10 MLS/HR; Start 04/24/19 at 19:30 Christian Araujo DO Apr 26, 2019 16:15
[2019-04-26] MEDS ORDERED: DIGOXIN 500 MCG INJ IV ONE (16:30)
--- NOTE | 2019-04-26 16:35 | PN ---
Date/Time of Note Date/Time of Note DATE: 04/26/19 TIME: 16:32 Assessment/Plan VTE Prophylaxis Risk score (from Ns)>0 risk: 1 SCD applied (from Ns): Yes Pharmacological prophylaxis: NA/contraindicated Pharm contraindication: bleeding Lines/Catheters IV Catheter Type (from Nrsg): PICC Line Central line still needed: Yes Urinary Cath still in place: No Assessment/Plan Assessment/Plan 1. Acute GI bleeding- improved - GI on board and plans for colonoscopy. Cardiology cleared for procedure - holding aspirin and Eliquis 2. Acute hypoxic respiratory failure- stable - patient is doing well on NC. Currently on 4L and wean as tolerated - Pulm consultation appreciated. - Nebs PRN 3. Acute systolic congestive heart failure- stable - BNP noted - Cardiology on board and appreciate recommendations - Nephrology on board for management of diuretics. Will continue on Bumex - monitor I/O and daily weights - ECHO results noted with low EF 4. New onset afib with RVR- stable - doing well on digoxin - continue on PO amiodarone - Cardiology consultation appreciated - On Eliquis 5. DANYA- resolving - Nephrology consultation appreciated - US results noted - renally dose medications 6. Bilateral pneumonia- resolving - seen on CXR - ID consultation appreciated and d/c antibiotics. will monitor off antibiotics per ID recs - continue Neb tx PRN 7. Elevated trop - most likely type 2 demand - will need stress test when stable either inpatient or outpatient and possible PCI in future when renal function improves - no chest pain noted 8. Sleep apnea - on BIPAP qhs 9. HTN - continue home medications and adjust as needed 10. Disposition - Plans for colonoscopy given GI bleeding. Restart Eliquis when able Result Diagram: 04/26/19 1052 04/26/19 1052 Results 24hrs Laboratory Tests Test 04/25/19 21:57 04/26/19 02:08 04/26/19 10:52 White Blood Count 14.3 H 13.1 H 11.2 H Red Blood Count 2.68 L 2.52 L 3.01 L Hemoglobin 7.6 L 7.3 L 8.6 L Hematocrit 23.3 L 22.1 L 27.2 #L Mean Corpuscular Volume 86.9 87.7 90.4 Mean Corpuscular Hemoglobin 28.4 L 29.0 28.6 L Mean Corpuscular Hemoglobin Concent 32.6 33.0 31.6 L Red Cell Distribution Width 15.4 H 15.6 H 15.8 H Platelet Count 170 167 175 Mean Platelet Volume 9.5 9.5 9.2 Immature Granulocytes % 0.600 H 0.800 H 0.600 H Neutrophils % 81.4 H 82.1 H 78.2 H Lymphocytes % 10.5 L 10.4 L 12.3 L Monocytes % 7.2 6.1 8.0 Eosinophils % 0.1 0.4 0.6 Basophils % 0.2 0.2 0.3 Nucleated Red Blood Cells % 0.2 H 0.4 H 0.4 H Immature Granulocytes # 0.080 H 0.110 H 0.070 H Neutrophils # 11.6 H 10.7 H 8.7 H Lymphocytes # 1.5 1.4 1.4 Monocytes # 1.0 H 0.8 0.9 Eosinophils # 0.0 0.1 0.1 Basophils # 0.0 0.0 0.0 Nucleated Red Blood Cells # 0.0 0.1 H 0.0 Sodium Level 145 H Potassium Level 3.7 Chloride Level 104 Carbon Dioxide Level 34 H Anion Gap 7 Blood Urea Nitrogen 31 H Creatinine 1.19 Est Glomerular Filtrat Rate mL/min > 60 Glucose Level 96 Calcium Level 8.1 L Phosphorus Level 4.4 Magnesium Level 2.2 Albumin 3.0 L Subjective 24 Hr Interval Summary Free Text/Dictation Patient is doing well and states feeling better. Has noticed stools are more brown now. No acute overnight events. Still on 4L NC. Exam/Review of Systems Exam Vitals Vital Signs Date Temp Pulse Resp B/P (MAP) Pulse Ox O2 O2 Flow FiO2 Time Delivery Rate 04/26/19 96.7 90 16 114/89 100 15:09 (97) 04/26/19 Nasal 4.0 08:00 Cannula 04/26/19 40 05:11 Intake and Output 04/25/19 04/25/19 04/26/19 1515:00 23:00 07:00 IntakeIntake Total 300 ml 1390 ml 70 ml OutputOutput Total 300 ml 150 ml BalanceBalance 0 ml 1390 ml -80 ml Exam General: Patient is laying in bed and answers questions appropriately Neck: Supple Respiratory: Mildly coarse to auscultation bilaterally Cardiovascular: regular rate and rhythm, no obvious murmurs Gastrointestinal: soft, non-tender to palpation, bowel sounds heard. Ext: Moves all extremities spontaneously Skin: No new skin lesions Results Results 24hrs Laboratory Tests Test 04/25/19 21:57 04/26/19 02:08 04/26/19 10:52 White Blood Count 14.3 H 13.1 H 11.2 H Red Blood Count 2.68 L 2.52 L 3.01 L Hemoglobin 7.6 L 7.3 L 8.6 L Hematocrit 23.3 L 22.1 L 27.2 #L Mean Corpuscular Volume 86.9 87.7 90.4 Mean Corpuscular Hemoglobin 28.4 L 29.0 28.6 L Mean Corpuscular Hemoglobin Concent 32.6 33.0 31.6 L Red Cell Distribution Width 15.4 H 15.6 H 15.8 H Platelet Count 170 167 175 Mean Platelet Volume 9.5 9.5 9.2 Immature Granulocytes % 0.600 H 0.800 H 0.600 H Neutrophils % 81.4 H 82.1 H 78.2 H Lymphocytes % 10.5 L 10.4 L 12.3 L Monocytes % 7.2 6.1 8.0 Eosinophils % 0.1 0.4 0.6 Basophils % 0.2 0.2 0.3 Nucleated Red Blood Cells % 0.2 H 0.4 H 0.4 H Immature Granulocytes # 0.080 H 0.110 H 0.070 H Neutrophils # 11.6 H 10.7 H 8.7 H Lymphocytes # 1.5 1.4 1.4 Monocytes # 1.0 H 0.8 0.9 Eosinophils # 0.0 0.1 0.1 Basophils # 0.0 0.0 0.0 Nucleated Red Blood Cells # 0.0 0.1 H 0.0 Sodium Level 145 H Potassium Level 3.7 Chloride Level 104 Carbon Dioxide Level 34 H Anion Gap 7 Blood Urea Nitrogen 31 H Creatinine 1.19 Est Glomerular Filtrat Rate mL/min > 60 Glucose Level 96 Calcium Level 8.1 L Phosphorus Level 4.4 Magnesium Level 2.2 Albumin 3.0 L Medications Medication Current Medications Aspirin (Halfprin) 81 mg DAILY PO Last administered on 04/24/19at 09:09; Admin Dose 81 MG; Start 04/13/19 at 09:00 Atorvastatin Calcium (Lipitor) 20 mg QHS PO Last administered on 04/25/19 21:01; Admin Dose 20 MG; Start 04/12/19 at 21:00 Ondansetron HCl (Zofran Inj) 4 mg Q6H PRN IV NAUSEA AND/OR VOMITING Last administered on 04/15/19 16:27; Admin Dose 4 MG; Start 04/12/19 at 13:00 Acetaminophen (Tylenol Tab) 650 mg Q6H PRN PO PAIN LEVEL 1-3 OR FEVER Last administered on 04/22/19 00:29; Admin Dose 650 MG; Start 04/12/19 at 13:00 Docusate Sodium (Colace) 100 mg Q12H PRN PO CONSTIPATION; Start 04/12/19 at 13:00 Magnesium Hydroxide (Milk Of Mag) 30 ml DAILY PRN PO CONSTIPATION; Start 04/12/19 at 13:00 Pantoprazole (Protonix Tab) 40 mg DAILY@06 PO Last administered on 04/24/19 05:47; Admin Dose 40 MG; Start 04/13/19 at 06:00; Status Hold Apixaban (Eliquis) 5 mg BID PO Last administered on 04/24/19 09:10; Admin Dose 5 MG; Start 04/12/19 at 21:00; Status Hold Metoprolol Tartrate (Lopressor) 5 mg Q2H PRN IV heart rate over 110 Last administered on 04/15/19 09:11; Admin Dose 5 MG; Start 04/13/19 at 09:30 Morphine Sulfate (morphine) 2 mg Q4H PRN IV SEVERE PAIN LEVEL 7-10 Last admini stered on 04/23/19 23:14; Admin Dose 2 MG; Start 04/13/19 at 23:30 IV Flush (NS 10 ml) 10 ml Q8 PRN IV IV PROTOCOL; Start 04/14/19 at 15:00 Lorazepam (Ativan) 1 mg Q6H PRN IV anxiety Last administered on 04/22/19 23:35; Admin Dose 1 MG; Start 04/14/19 at 15:00 [facility] This patient urias... PRN PRN XX WOUND CARE; Start 04/14/19 at 21:00 Amiodarone HCl (Cordarone) 400 mg TID PO Last administered on 04/17/19 13:10; Admin Dose 400 MG; Start 04/16/19 at 13:00; Status Hold Metoprolol Succinate (Toprol Xl) 100 mg BID PO Last administered on 04/24/19 21:43; Admin Dose 100 MG; Start 04/19/19 at 21:00 Albuterol/ Ipratropium (Duoneb) 3 ml Q6HWA RESP THERAPY HHN Last administered on 04/26/19 07:46; Admin Dose 3 ML; Start 04/20/19 at 20:00 Albuterol/ Ipratropium (Duoneb) 3 ml Q2H RESP THERAPY PRN HHN shortness of breath Last administered on 04/24/19 04:16; Admin Dose 3 ML; Start 04/20/19 at 15:00 Budesonide (Pulmicort (Neb)) 0.5 mg BID RESP THERAPY HHN Last administered on 04/26/19 07:47; Admin Dose 0.5 MG; Start 04/20/19 at 20:00 Silver Sulfadiazine (Thermazene 1% 25 Gm) 1 applic DAILY TOP Last administered on 04/26/19 08:24; Admin Dose 1 APPLIC; Start 04/22/19 at 12:00 Bumetanide (Bumex) 1 mg DAILY PO Last administered on 04/26/19 08:23; Admin Dose 1 MG; Start 04/25/19 at 09:00 Pantoprazole 80 mg/Sodium Chloride 100 ml @ 10 mls/hr Q10H IV Last administered on 04/26/19 12:14; Admin Dose 10 MLS/HR; Start 04/24/19 at 19:30 Digoxin (Digoxin) 0.125 mg DAILY@13 PO ; Start 04/27/19 at 13:00 MARVIN FOX MD Apr 26, 2019 16:35
[2019-04-26] MEDS: ATORVASTATIN 20 MG TAB PO SCH (20:48)
[2019-04-27] VITALS (18 sets, daily range): BP systolic 97–121; BP diastolic 65–86; PULSE 54–89; RESP 11–28
[2019-04-27] MEDS: PANTOPRAZOLE IV 80 MG in SOD CHLORIDE 0.9% 100 ML IV SCH ×4 (01:02→21:20)
[2019-04-27] MEDS: ALBUTEROL/IPRATROPIUM (NEB) 3 ML AMP HHN SCH ×3 (07:18→20:14)
[2019-04-27] MEDS: BUDESONIDE (NEB) 0.5MG/2ML AMP HHN SCH ×2 (07:18→20:21)
[2019-04-27] MEDS: ASPIRIN (EC) 81 MG TAB PO SCH (09:00)
[2019-04-27] MEDS: BUMETANIDE 1 MG TAB PO SCH (10:10)
[2019-04-27] MEDS: METOPROLOL (XL) 100 MG TAB PO SCH ×2 (10:10→21:24)
[2019-04-27] MEDS: POTASSIUM CHLORIDE 100 ML IVPB SCH ×2 (10:11→13:11)
[2019-04-27] MEDS: SILVER SULFADIAZINE 1% 25 GM CR TOP SCH (10:12)
--- NOTE | 2019-04-27 10:46 | CONS ---
Consultation Date/Type/Reason Admit Date/Time Apr 12, 2019 at 12:21 Initial Consult Date 04/13/19 Type of Consult Pulmonary/critical care Patient is a 63-year-old [place] gentleman who came into the hospital with history of shortness of breath for the last 1 day. Patient denied having any chest pain, any fever, wheezing or any sputum production. Upon evaluation patient was found to be in A. fib with RVR. Patient has been rate controlled. By the time I saw the patient in ICU, patient is sitting comfortably in bed and denied having any shortness of breath, rest pain, or any other symptoms. Past medical history; 1. History of apparent chronic renal insufficiency. 2. History of hypertension. Medications; reviewed. Allergies; none. Social history; patient never smoked. Occupational history; patient is retired. Family history; noncontributory. Review of systems; denies any headache, chest pain, shortness of breath has improved. Denies any coughing, wheezing, sputum production or fever. Denies any abdominal pain, nausea vomiting. Any orthopnea. General exam; elderly male, laying comfortably in bed. Currently in no distress. Requesting Provider: MARVIN FOX MD Date/Time of Note DATE: 04/27/19 TIME: 10:44 24 HR Interval Summary Free Text/Dictation Patient's condition is stable. Denies any shortness of breath. Any coughing or wheezing. General exam; elderly male, currently no distress. Awake and alert. H ENT exam; supple neck, positive JVD. No lymphadenopathy. Midline trachea. No thyromegaly. Patient is a few missing teeth. Chest exam; clear to auscultation. S1-S2 audible, no murmurs. Irregular rhythm. Abdomen exam; soft, nontender. No organomegaly. Bowel sounds are audible. Extremity exam; no peripheral edema clubbing. VENUE COORDINATOR exam; no focal deficit. Assessment and recommendations; 1. Patient admitted with hypoxemia due to CHF exacerbation with a history of cardiomyopathy with A. fib with RVR. Patient has improved significantly since admission. 2. Acute versus likely chronic renal insufficiency. Clinically improving. 3. Metabolic acidosis on admission with interval correction. 4. Mild anemia and thrombocytopenia. 5. History of hypertension. Continue current supportive care. Consider discharge. Exam/Review of Systems Exam Vitals Vital Signs Date Temp Pulse Resp B/P (MAP) Pulse Ox O2 O2 Flow FiO2 Time Delivery Rate 04/27/19 97.6 74 17 105/74 100 07:13 (84) 04/27/19 35 05:06 04/26/19 Nasal 4.0 20:47 Cannula Intake and Output 04/26/19 04/26/19 04/27/19 1515:00 23:00 07:00 IntakeIntake Total 160 ml 150 ml OutputOutput Total 1 ml BalanceBalance -1 ml 160 ml 150 ml Results Result Diagram: 04/27/19 0555 04/27/19 0555 Results 24hrs Laboratory Tests Test 04/26/19 10:52 04/27/19 05:55 White Blood Count 11.2 H 8.2 # Red Blood Count 3.01 L 2.71 L Hemoglobin 8.6 L 7.9 L Hematocrit 27.2 #L 24.4 L Mean Corpuscular Volume 90.4 90.0 Mean Corpuscular Hemoglobin 28.6 L 29.2 Mean Corpuscular Hemoglobin Concent 31.6 L 32.4 Red Cell Distribution Width 15.8 H 15.6 H Platelet Count 175 166 Mean Platelet Volume 9.2 8.9 Immature Granulocytes % 0.600 H 0.500 H Neutrophils % 78.2 H 72.3 Lymphocytes % 12.3 L 14.5 L Monocytes % 8.0 10.3 Eosinophils % 0.6 2.2 Basophils % 0.3 0.2 Nucleated Red Blood Cells % 0.4 H 0.6 H Immature Granulocytes # 0.070 H 0.040 H Neutrophils # 8.7 H 5.9 Lymphocytes # 1.4 1.2 Monocytes # 0.9 0.9 Eosinophils # 0.1 0.2 Basophils # 0.0 0.0 Nucleated Red Blood Cells # 0.0 0.1 H Sodium Level 145 H 141 Potassium Level 3.7 3.5 Chloride Level 104 104 Carbon Dioxide Level 34 H 35 H Anion Gap 7 2 L Blood Urea Nitrogen 31 H 23 H Creatinine 1.19 1.19 Est Glomerular Filtrat Rate mL/min > 60 Glucose Level 96 90 Calcium Level 8.1 L 8.1 L Phosphorus Level 4.4 4.1 Magnesium Level 2.2 2.2 Albumin 3.0 L 2.6 L Medications Medication Current Medications Aspirin (Halfprin) 81 mg DAILY PO Last administered on 04/24/19at 09:09; Admin Dose 81 MG; Start 04/13/19 at 09:00 Atorvastatin Calcium (Lipitor) 20 mg QHS PO Last administered on 04/26/19 20:48; Admin Dose 20 MG; Start 04/12/19 at 21:00 Ondansetron HCl (Zofran Inj) 4 mg Q6H PRN IV NAUSEA AND/OR VOMITING Last a dministered on 04/15/19 16:27; Admin Dose 4 MG; Start 04/12/19 at 13:00 Acetaminophen (Tylenol Tab) 650 mg Q6H PRN PO PAIN LEVEL 1-3 OR FEVER Last administered on 04/22/19 00:29; Admin Dose 650 MG; Start 04/12/19 at 13:00 Docusate Sodium (Colace) 100 mg Q12H PRN PO CONSTIPATION; Start 04/12/19 at 13:00 Magnesium Hydroxide (Milk Of Mag) 30 ml DAILY PRN PO CONSTIPATION; Start 04/12/19 at 13:00 Pantoprazole (Protonix Tab) 40 mg DAILY@06 PO Last administered on 04/24/19 05:47; Admin Dose 40 MG; Start 04/13/19 at 06:00; Status Hold Apixaban (Eliquis) 5 mg BID PO Last administered on 04/24/19 09:10; Admin Dose 5 MG; Start 04/12/19 at 21:00; Status Hold Metoprolol Tartrate (Lopressor) 5 mg Q2H PRN IV heart rate over 110 Last administered on 04/15/19 09:11; Admin Dose 5 MG; Start 04/13/19 at 09:30 Morphine Sulfate (morphine) 2 mg Q4H PRN IV SEVERE PAIN LEVEL 7-10 Last administered on 04/23/19 23:14; Admin Dose 2 MG; Start 04/13/19 at 23:30 IV Flush (NS 10 ml) 10 ml Q8 PRN IV IV PROTOCOL; Start 04/14/19 at 15:00 Lorazepam (Ativan) 1 mg Q6H PRN IV anxiety Last administered on 04/22/19 23:35; Admin Dose 1 MG; Start 04/14/19 at 15:00 Miscellaneous Information (Pending Santyl Order For Wound Care) This patient urias... PRN PRN XX WOUND CARE; Start 04/14/19 at 21:00 Amiodarone HCl (Cordarone) 400 mg TID PO Last administered on 04/17/19 13:10; Admin Dose 400 MG; Start 04/16/19 at 13:00; Status Hold Metoprolol Succinate (Toprol Xl) 100 mg BID PO Last administered on 04/27/19 1 0:10; Admin Dose 100 MG; Start 04/19/19 at 21:00 Albuterol/ Ipratropium (Duoneb) 3 ml Q6HWA RESP THERAPY HHN Last administered on 04/27/19 07:18; Admin Dose 3 ML; Start 04/20/19 at 20:00 Albuterol/ Ipratropium (Duoneb) 3 ml Q2H RESP THERAPY PRN HHN shortness of breath Last administered on 04/24/19 04:16; Admin Dose 3 ML; Start 04/20/19 at 15:00 Budesonide (Pulmicort (Neb)) 0.5 mg BID RESP THERAPY HHN Last administered on 04/27/19 07:18; Admin Dose 0.5 MG; Start 04/20/19 at 20:00 Silver Sulfadiazine (Thermazene 1% 25 Gm) 1 applic DAILY TOP Last administered on 04/27/19 10:12; Admin Dose 1 APPLIC; Start 04/22/19 at 12:00 Bumetanide (Bumex) 1 mg DAILY PO Last administered on 04/27/19 10:10; Admin Dose 1 MG; Start 04/25/19 at 09:00 Pantoprazole 80 mg/Sodium Chloride 100 ml @ 10 mls/hr Q10H IV Last administered on 04/27/19 10:11; Admin Dose 10 MLS/HR; Start 04/24/19 at 19:30 Digoxin (Digoxin) 0.125 mg DAILY@13 PO ; Start 04/27/19 at 13:00 Potassium Chloride 100 ml @ 50 mls/hr Q2H IVPB Last administered on 04/27/19 10:11; Admin Dose 50 MLS/HR; Start 04/27/19 at 09:00; Stop 04/27/19 at 12:59 BONI BAER Apr 27, 2019 10:46
--- NOTE | 2019-04-27 12:13 | CONS ---
Assessment/Plan Assessment/Plan Assessment/Plan (Daily) 1. Oliguric Acute kidney injury on CKD 2/2 Hemodynamics from CHF and atrial fibrillation RVR , also contributing ATN from sepsis 2. acute hypoxic respiratory failure requiring BIPAP due to Bilateral PNA and CHF 3. sepsis due to Bilateral PNA 4. Acute CHF exacerbation with EF 20% on ECHO, most likely new onset since pt has been denying any H/o CHF 5. New onset afib with RVR- on cardizem gtt 6. H/o HTN 7. H/o Sleep apnea 8. H/o Possible CKD but pt has been denying it.. His Renal Us showed normal echogenicity of kidneys but kidneys are small in size, The right kidney measures 9.5 cm. The left kidney measures 9.2 cm. Plan: -BUN/Cr improved to 23/1.19, Na 141- other electrolytes stable- , bumex 1 mg po daily . Monitor electrolytes and replace as needed Echo showed EF 20% wiht Moderate MR, moderate to severe TR, Enlarged RV and RVSP 52 Amiodarone 400mg PO TID and metoprolol 100mg PO BID for rate conrol, eliquis for anticoagulation will follow up Consultation Date/Type/Reason Admit Date/Time Apr 12, 2019 at 12:21 Initial Consult Date 04/13/19 Type of Consult NEPHROLOGY Requesting Provider: MARVIN FOX MD Date/Time of Note DATE: 04/27/19 TIME: 12:13 Exam/Review of Systems Exam Vitals Vital Signs Date Temp Pulse Resp B/P (MAP) Pulse Ox O2 O2 Flow FiO2 Time Delivery Rate 04/27/19 98.0 87 18 119/72 96 11:07 (88) 04/27/19 Nasal 4.0 08:00 Cannula 04/27/19 35 05:06 Intake and Output 04/26/19 04/26/19 04/27/19 1515:00 23:00 07:00 IntakeIntake Total 160 ml 150 ml OutputOutput Total 1 ml BalanceBalance -1 ml 160 ml 150 ml Exam Constitutional: alert awake communicative Respiratory: decreased BS+, no wheezing Cardiovascular: regular rate and rhythm, nl pulses Gastrointestinal: soft, non-tender Musculoskeletal: muscle weakness, swelling (1+ pitting edema ) Extremities: normal pulses Neurological: alert awake, communicative, non focal Results Result Diagram: 04/27/19 0555 04/27/19 0555 Results 24hrs Laboratory Tests Test 04/27/19 05:55 White Blood Count 8.2 # Red Blood Count 2.71 L Hemoglobin 7.9 L Hematocrit 24.4 L Mean Corpuscular Volume 90.0 Mean Corpuscular Hemoglobin 29.2 Mean Corpuscular Hemoglobin Concent 32.4 Red Cell Distribution Width 15.6 H Platelet Count 166 Mean Platelet Volume 8.9 Immature Granulocytes % 0.500 H Neutrophils % 72.3 Lymphocytes % 14.5 L Monocytes % 10.3 Eosinophils % 2.2 Basophils % 0.2 Nucleated Red Blood Cells % 0.6 H Immature Granulocytes # 0.040 H Neutrophils # 5.9 Lymphocytes # 1.2 Monocytes # 0.9 Eosinophils # 0.2 Basophils # 0.0 Nucleated Red Blood Cells # 0.1 H Sodium Level 141 Potassium Level 3.5 Chloride Level 104 Carbon Dioxide Level 35 H Anion Gap 2 L Blood Urea Nitrogen 23 H Creatinine 1.19 Glucose Level 90 Calcium Level 8.1 L Phosphorus Level 4.1 Magnesium Level 2.2 Albumin 2.6 L Medications Medication Current Medications Aspirin (Halfprin) 81 mg DAILY PO Last administered on 04/24/19 09:09; Admin Dose 81 MG; Start 04/13/19 at 09:00 Atorvastatin Calcium (Lipitor) 20 mg QHS PO Last administered on 04/26/19at 20:48; Admin Dose 20 MG; Start 04/12/19 at 21:00 Ondansetron HCl (Zofran Inj) 4 mg Q6H PRN IV NAUSEA AND/OR VOMITING Last administered on 04/15/19 16:27; Admin Dose 4 MG; Start 04/12/19 at 13:00 Acetaminophen (Tylenol Tab) 650 mg Q6H PRN PO PAIN LEVEL 1-3 OR FEVER Last administered on 04/22/19 00:29; Admin Dose 650 MG; Start 04/12/19 at 13:00 Docusate Sodium (Colace) 100 mg Q12H PRN PO CONSTIPATION; Start 04/12/19 at 13:00 Magnesium Hydroxide (Milk Of Mag) 30 ml DAILY PRN PO CONSTIPATION; Start 04/12/19 at 13:00 Pantoprazole (Protonix Tab) 40 mg DAILY@06 PO Last administered on 04/24/19at 05:47; Admin Dose 40 MG; Start 04/13/19 at 06:00; Status Hold Apixaban (Eliquis) 5 mg BID PO Last administered on 04/24/19 09:10; Admin Dose 5 MG; Start 04/12/19 at 21:00; Status Hold Metoprolol Tartrate (Lopressor) 5 mg Q2H PRN IV heart rate over 110 Last administered on 04/15/19 09:11; Admin Dose 5 MG; Start 04/13/19 at 09:30 Morphine Sulfate (morphine) 2 mg Q4H PRN IV SEVERE PAIN LEVEL 7-10 Last administered on 04/23/19 23:14; Admin Dose 2 MG; Start 04/13/19 at 23:30 IV Flush (NS 10 ml) 10 ml Q8 PRN IV IV PROTOCOL; Start 04/14/19 at 15:00 Lorazepam (Ativan) 1 mg Q6H PRN IV anxiety Last administered on 04/22/19 23:35; Admin Dose 1 MG; Start 04/14/19 at 15:00 Miscellaneous Information (Pending [facility] Order For Wound Care) This patient urias... PRN PRN XX WOUND CARE; Start 04/14/19 at 21:00 Amiodarone HCl (Cordarone) 400 mg TID PO Last administered on 04/17/19 13:10; Admin Dose 400 MG; Start 04/16/19 at 13:00; Status Hold Metoprolol Succinate (Toprol Xl) 100 mg BID PO Last administered on 04/27/19 10:10; Admin Dose 100 MG; Start 04/19/19 at 21:00 Albuterol/ Ipratropium (Duoneb) 3 ml Q6HWA RESP THERAPY HHN Last administered on 04/27/19 07:18; Admin Dose 3 ML; Start 04/20/19 at 20:00 Albuterol/ Ipratropium (Duoneb) 3 ml Q2H RESP THERAPY PRN HHN shortness of breath Last administered on 04/24/19 04:16; Admin Dose 3 ML; Start 04/20/19 at 15:00 Budesonide (Pulmicort (Neb)) 0.5 mg BID RESP THERAPY HHN Last administered on 04/27/19 07:18; Admin Dose 0.5 MG; Start 04/20/19 at 20:00 Silver Sulfadiazine (Thermazene 1% 25 Gm) 1 applic DAILY TOP Last administered on 04/27/19 10:12; Admin Dose 1 APPLIC; Start 04/22/19 at 12:00 Bumetanide (Bumex) 1 mg DAILY PO Last administered on 04/27/19 10:10; Admin Dose 1 MG; Start 04/25/19 at 09:00 Pantoprazole 80 mg/Sodium Chloride 100 ml @ 10 mls/hr Q10H IV Last administered on 04/27/19 10:11; Admin Dose 10 MLS/HR; Start 04/24/19 at 19:30 Digoxin (Digoxin) 0.125 mg DAILY@13 PO ; Start 04/27/19 at 13:00 Potassium Chloride 100 ml @ 50 mls/hr Q2H IVPB Last administered on 04/27/19 10:11; Admin Dose 50 MLS/HR; Start 04/27/19 at 09:00; Stop 04/27/19 at 12:59 RYAN VICENTE MD Apr 27, 2019 12:13
[2019-04-27] MEDS: DIGOXIN 0.125 MG TAB PO SCH (13:16)
--- NOTE | 2019-04-27 14:17 | PREAC ---
Date/Time of Note Date/Time of Note DATE: 04/27/19 TIME: 14:13 Anesthesia Eval and Record Evaluation Time Pre-Procedure Interview DATE: 04/27/19 TIME: 14:13 Age 63 Sex male NPO: 8 hrs Preoperative diagnosis HEMATOCHEZIA Planned procedure COLONOSCOPY Past Medical History Past Medical History: Includes Cardio: HTN, Dyslipidemia, Arrythmia (A FIB), CHF Pulm: Sleep Apnea Renal: CKD GI: Obesity Surgery & Anesthesia Issues No known issue Meds Anticoagulation: No Beta Wayne within 24 hr: Yes Reported Medications Aspirin* (Aspirin* EC) 81 Mg Tablet.dr, 81 MG PO DAILY, TAB 04/12/19 Atorvastatin Calcium* (Atorvastatin Calcium*) 20 Mg Tablet, 20 MG PO QHS, #30 TAB 04/12/19 Losartan Potassium* (Losartan Potassium*) 100 Mg Tablet, 100 MG PO DAILY, TAB 04/12/19 Amlodipine Besylate* (Amlodipine Besylate*) 10 Mg Tablet, 10 MG PO DAILY, #30 TAB 04/12/19 Current Medications Aspirin (Halfprin) 81 mg DAILY PO Last administered on 04/24/19at 09:09; Admin Dose 81 MG; Start 04/13/19 at 09:00 Atorvastatin Calcium (Lipitor) 20 mg QHS PO Last administered on 04/26/19at 20:48; Admin Dose 20 MG; Start 04/12/19 at 21:00 Ondansetron HCl (Zofran Inj) 4 mg Q6H PRN IV NAUSEA AND/OR VOMITING Last administered on 04/15/19at 16:27; Admin Dose 4 MG; Start 04/12/19 at 13:00 Acetaminophen (Tylenol Tab) 650 mg Q6H PRN PO PAIN LEVEL 1-3 OR FEVER Last administered on 04/22/19at 00:29; Admin Dose 650 MG; Start 04/12/19 at 13:00 Docusate Sodium (Colace) 100 mg Q12H PRN PO CONSTIPATION; Start 04/12/19 at 13:00 Magnesium Hydroxide (Milk Of Mag) 30 ml DAILY PRN PO CONSTIPATION; Start 04/12/19 at 13:00 Pantoprazole (Protonix Tab) 40 mg DAILY@06 PO Last administered on 04/24/19at 05:47; Admin Dose 40 MG; Start 04/13/19 at 06:00; Status Hold Apixaban (Eliquis) 5 mg BID PO Last administered on 04/24/19 09:10; Admin Dose 5 MG; Start 04/12/19 at 21:00; Status Hold Metoprolol Tartrate (Lopressor) 5 mg Q2H PRN IV heart rate over 110 Last administered on 04/15/19 09:11; Admin Dose 5 MG; Start 04/13/19 at 09:30 Morphine Sulfate (morphine) 2 mg Q4H PRN IV SEVERE PAIN LEVEL 7-10 Last administered on 04/23/19 23:14; Admin Dose 2 MG; Start 04/13/19 at 23:30 IV Flush (NS 10 ml) 10 ml Q8 PRN IV IV PROTOCOL; Start 04/14/19 at 15:00 Lorazepam (Ativan) 1 mg Q6H PRN IV anxiety Last administered on 04/22/19 23:35; Admin Dose 1 MG; Start 04/14/19 at 15:00 Miscellaneous Information (Pending [facility] Order For Wound Care) This patient urias... PRN PRN XX WOUND CARE; Start 04/14/19 at 21:00 Amiodarone HCl (Cordarone) 400 mg TID PO Last administered on 04/17/19 13:10; Admin Dose 400 MG; Start 04/16/19 at 13:00; Status Hold Metoprolol Succinate (Toprol Xl) 100 mg BID PO Last administered on 04/27/19 10:10; Admin Dose 100 MG; Start 04/19/19 at 21:00 Albuterol/ Ipratropium (Duoneb) 3 ml Q6HWA RESP THERAPY HHN Last administered on 04/27/19 07:18; Admin Dose 3 ML; Start 04/20/19 at 20:00 Albuterol/ Ipratropium (Duoneb) 3 ml Q2H RESP THERAPY PRN HHN shortness of breath Last administered on 04/24/19 04:16; Admin Dose 3 ML; Start 04/20/19 at 15:00 Budesonide (Pulmicort (Neb)) 0.5 mg BID RESP THERAPY HHN Last administered on 04/27/19 07:18; Admin Dose 0.5 MG; Start 04/20/19 at 20:00 Silver Sulfadiazine (Thermazene 1% 25 Gm) 1 applic DAILY TOP Last administered on 04/27/19at 10:12; Admin Dose 1 APPLIC; Start 04/22/19 at 12:00 Bumetanide (Bumex) 1 mg DAILY PO Last administered on 04/27/19at 10:10; Admin Dose 1 MG; Start 04/25/19 at 09:00 Pantoprazole 80 mg/Sodium Chloride 100 ml @ 10 mls/hr Q10H IV Last administ ered on 04/27/19at 10:11; Admin Dose 10 MLS/HR; Start 04/24/19 at 19:30 Digoxin (Digoxin) 0.125 mg DAILY@13 PO Last administered on 04/27/19at 13:16; Admin Dose 0.125 MG; Start 04/27/19 at 13:00 Meds reviewed: Yes Allergies Coded Allergies: No Known Allergy (Unverified , 04/12/19) Allergies Reviewed: Yes Labs/Studies Labs Reviewed: Reviewed by anesthesiologist Result Diagram: 04/27/19 0555 04/27/19 0555 Laboratory Tests 04/27/19 05:55 test: N/A Studies: CXR (Cardiomegaly with pulmonary vascular congestion and bilateral infiltrates and effusions, right greater than left. Rule out failure.), 2D Echo (EF:20%, SEVERE TR, MODERATE MR) Pre-procedure Exam Last vitals Vital Signs Date Temp Pulse Resp B/P (MAP) Pulse Ox O2 O2 Flow FiO2 Time Delivery Rate 04/27/19 98.0 87 18 119/72 96 11:07 (88) 04/27/19 Nasal 4.0 08:00 Cannula 04/27/19 35 05:06 Airway: Adequate mouth opening, Adequate thyromental dist Mallampati: Mallampati II Teeth: Normal Lung: Normal Heart: Normal ASA Physical Status ASA physical status: 4 Emergency: None Planned Anesthetic General/MAC: MAC Planned Pain Management Parenteral pain med Pre-operative Attestations Prior to commencing anesthesia and surgery, the patient was re-evaluated, there was verification of: *The patient's identity *The results of appropriate recent lab work and preoperative vital signs *The above evaluation not changing prior to induction *Anesthetic plan, risk benefits, alternative and complications discussed with patient/family; questions answered; patient/family understands, accepts and wishes to proceed. Miki Ovalle M.D. Apr 27, 2019 14:17
--- NOTE | 2019-04-27 14:55 | PN ---
Date/Time of Note Date/Time of Note DATE: 04/27/19 TIME: 14:52 Assessment/Plan VTE Prophylaxis Risk score (from Ns)>0 risk: 5 SCD applied (from Ns): Yes Pharmacological prophylaxis: NA/contraindicated Pharm contraindication: bleeding Lines/Catheters IV Catheter Type (from Nrsg): PICC Line Central line still needed: Yes Urinary Cath still in place: No Assessment/Plan Assessment/Plan 1. Acute GI bleeding- improved - Plans for colonoscopy today and will await findings prior to restarting Eliquis - GI on board and appreciate consultation - holding aspirin and Eliquis 2. Acute hypoxic respiratory failure- stable - Continued on 4L O2 and no respiratory distress noted - Pulm consultation appreciated. - Nebs PRN 3. Acute systolic congestive heart failure- stable - BNP noted - Cardiology on board and appreciate recommendations - Nephrology on board for management of diuretics. Will continue on Bumex - monitor I/O and daily weights - ECHO results noted with low EF 4. New onset afib with RVR- stable - doing well on digoxin - continue on PO amiodarone - on BB and concerning causing dry cough. Discussed need to speak with card iology since on high doses - Cardiology consultation appreciated - On Eliquis 5. DANYA- resolving - Nephrology consultation appreciated - US results noted - renally dose medications 6. Bilateral pneumonia- resolving - seen on CXR - ID consultation appreciated and d/c antibiotics. will monitor off antibiotics per ID recs - continue Neb tx PRN 7. Elevated trop - most likely type 2 demand - will need stress test when stable either inpatient or outpatient and possible PCI in future when renal function improves - no chest pain noted 8. Sleep apnea - on BIPAP qhs 9. HTN - continue home medications and adjust as needed 10. Disposition - Plans for colonoscopy today and if no acute issues, will restart Eliquis when okay by GI Result Diagram: 04/27/19 0555 04/27/19 0555 Results 24hrs Laboratory Tests Test 04/27/19 05:55 White Blood Count 8.2 # Red Blood Count 2.71 L Hemoglobin 7.9 L Hematocrit 24.4 L Mean Corpuscular Volume 90.0 Mean Corpuscular Hemoglobin 29.2 Mean Corpuscular Hemoglobin Concent 32.4 Red Cell Distribution Width 15.6 H Platelet Count 166 Mean Platelet Volume 8.9 Immature Granulocytes % 0.500 H Neutrophils % 72.3 Lymphocytes % 14.5 L Monocytes % 10.3 Eosinophils % 2.2 Basophils % 0.2 Nucleated Red Blood Cells % 0.6 H Immature Granulocytes # 0.040 H Neutrophils # 5.9 Lymphocytes # 1.2 Monocytes # 0.9 Eosinophils # 0.2 Basophils # 0.0 Nucleated Red Blood Cells # 0.1 H Sodium Level 141 Potassium Level 3.5 Chloride Level 104 Carbon Dioxide Level 35 H Anion Gap 2 L Blood Urea Nitrogen 23 H Creatinine 1.19 Glucose Level 90 Calcium Level 8.1 L Phosphorus Level 4.1 Magnesium Level 2.2 Albumin 2.6 L Subjective 24 Hr Interval Summary Free Text/Dictation Patient denies any acute issues and no overnight events. Plans for colonoscopy today. Exam/Review of Systems Exam Vitals Vital Signs Date Temp Pulse Resp B/P (MAP) Pulse Ox O2 O2 Flow FiO2 Time Delivery Rate 04/27/19 Simple 15 14:43 Mask 04/27/19 98.0 87 18 119/72 96 11:07 (88) 04/27/19 35 05:06 Intake and Output 04/26/19 04/26/19 04/27/19 1515:00 23:00 07:00 IntakeIntake Total 160 ml 150 ml OutputOutput Total 1 ml BalanceBalance -1 ml 160 ml 150 ml Exam General: Patient is laying in bed and answers questions appropriately Neck: Supple Respiratory: Coarse to auscultation bilaterally. no wheezing Cardiovascular: regular rate and rhythm, no obvious murmurs Gastrointestinal: soft, non-tender to palpation, bowel sounds heard. Ext: Moves all extremities spontaneously Skin: No new skin lesions Results Results 24hrs Laboratory Tests Test 04/27/19 05:55 White Blood Count 8.2 # Red Blood Count 2.71 L Hemoglobin 7.9 L Hematocrit 24.4 L Mean Corpuscular Volume 90.0 Mean Corpuscular Hemoglobin 29.2 Mean Corpuscular Hemoglobin Concent 32.4 Red Cell Distribution Width 15.6 H Platelet Count 166 Mean Platelet Volume 8.9 Immature Granulocytes % 0.500 H Neutrophils % 72.3 Lymphocytes % 14.5 L Monocytes % 10.3 Eosinophils % 2.2 Basophils % 0.2 Nucleated Red Blood Cells % 0.6 H Immature Granulocytes # 0.040 H Neutrophils # 5.9 Lymphocytes # 1.2 Monocytes # 0.9 Eosinophils # 0.2 Basophils # 0.0 Nucleated Red Blood Cells # 0.1 H Sodium Level 141 Potassium Level 3.5 Chloride Level 104 Carbon Dioxide Level 35 H Anion Gap 2 L Blood Urea Nitrogen 23 H Creatinine 1.19 Glucose Level 90 Calcium Level 8.1 L Phosphorus Level 4.1 Magnesium Level 2.2 Albumin 2.6 L Medications Medication Current Medications Aspirin (Halfprin) 81 mg DAILY PO Last administered on 04/24/19 09:09; Admin Dose 81 MG; Start 04/13/19 at 09:00 Atorvastatin Calcium (Lipitor) 20 mg QHS PO Last administered on 04/26/19 20:48; Admin Dose 20 MG; Start 04/12/19 at 21:00 Ondansetron HCl (Zofran Inj) 4 mg Q6H PRN IV NAUSEA AND/OR VOMITING Last administered on 04/15/19 16:27; Admin Dose 4 MG; Start 04/12/19 at 13:00 Acetaminophen (Tylenol Tab) 650 mg Q6H PRN PO PAIN LEVEL 1-3 OR FEVER Last administered on 04/22/19 00:29; Admin Dose 650 MG; Start 04/12/19 at 13:00 Docusate Sodium (Colace) 100 mg Q12H PRN PO CONSTIPATION; Start 04/12/19 at 13:00 Magnesium Hydroxide (Milk Of Mag) 30 ml DAILY PRN PO CONSTIPATION; Start at 13:00 Pantoprazole (Protonix Tab) 40 mg DAILY@06 PO Last administered on 04/24/19 05:47; Admin Dose 40 MG; Start 04/13/19 at 06:00; Status Hold Apixaban (Eliquis) 5 mg BID PO Last administered on 04/24/19 09:10; Admin Dose 5 MG; Start 04/12/19 at 21:00; Status Hold Metoprolol Tartrate (Lopressor) 5 mg Q2H PRN IV heart rate over 110 Last administered on 04/15/19 09:11; Admin Dose 5 MG; Start 04/13/19 at 09:30 Morphine Sulfate (morphine) 2 mg Q4H PRN IV SEVERE PAIN LEVEL 7-10 Last administered on 04/23/19 23:14; Admin Dose 2 MG; Start 04/13/19 at 23:30 IV Flush (NS 10 ml) 10 ml Q8 PRN IV IV PROTOCOL; Start 04/14/19 at 15:00 Lorazepam (Ativan) 1 mg Q6H PRN IV anxiety Last administered on 04/22/19 23:35; Admin Dose 1 MG; Start 04/14/19 at 15:00 Miscellaneous Information (Pending [facility]yl Order For Wound Care) This patient urias... PRN PRN XX WOUND CARE; Start 04/14/19 at 21:00 Amiodarone HCl (Cordarone) 400 mg TID PO Last administered on 04/17/19 13:10; Admin Dose 400 MG; Start 04/16/19 at 13:00; Status Hold Metoprolol Succinate (Toprol Xl) 100 mg BID PO Last administered on 04/27/19 10:10; Admin Dose 100 MG; Start 04/19/19 at 21:00 Albuterol/ Ipratropium (Duoneb) 3 ml Q6HWA RESP THERAPY HHN Last administered on 04/27/19 07:18; Admin Dose 3 ML; Start 04/20/19 at 20:00 Albuterol/ Ipratropium (Duoneb) 3 ml Q2H RESP THERAPY PRN HHN shortness of breath Last administered on 04/24/19 04:16; Admin Dose 3 ML; Start 04/20/19 at 15:00 Budesonide (Pulmicort (Neb)) 0.5 mg BID RESP THERAPY HHN Last administered on 04/27/19 07:18; Admin Dose 0.5 MG; Start 04/20/19 at 20:00 Silver Sulfadiazine (Thermazene 1% 25 Gm) 1 applic DAILY TOP Last administered on 04/27/19 10:12; Admin Dose 1 APPLIC; Start 04/22/19 at 12:00 Bumetanide (Bumex) 1 mg DAILY PO Last administered on 04/27/19 10:10; Admin Dose 1 MG; Start 04/25/19 at 09:00 Pantoprazole 80 mg/Sodium Chloride 100 ml @ 10 mls/hr Q10H IV Last administered on 04/27/19 10:11; Admin Dose 10 MLS/HR; Start 04/24/19 at 19:30 Digoxin (Digoxin) 0.125 mg DAILY@13 PO Last administered on 04/27/19 13:16; Admin Dose 0.125 MG; Start 04/27/19 at 13:00 MARVIN FOX MD Apr 27, 2019 14:55
[2019-04-27] MEDS ORDERED: PROPOFOL 40 ML ONE (14:58)
[2019-04-27] MEDS ORDERED: LIDOCAINE 100 MG SYRINGE ONE (14:58)
[2019-04-27] MEDS ORDERED: BARIUM SULF 2% 450 ML BTL (BERRY SMOOTHIE) PO ONE ×2 (15:00→17:30)
--- NOTE | 2019-04-27 15:00 | PAC ---
Date/Time of Note Date/Time of Note DATE: 04/27/19 TIME: 15:00 Post-Anesthesia Notes Post-Anesthesia Note Last documented vital signs Vital Signs Date Temp Pulse Resp B/P (MAP) Pulse Ox O2 O2 Flow FiO2 Time Delivery Rate 04/27/19 Simple 15 14:43 Mask 04/27/19 98.0 87 18 119/72 96 11:07 (88) 04/27/19 35 05:06 Activity: WNL Respiratory function: WNL Cardiovascular function: WNL Mental status: Baseline Pain reasonably controlled: Yes Hydration appropriate: Yes Nausea/Vomiting absent: Yes Miki Ovalle M.D. Apr 27, 2019 15:00
--- NOTE | 2019-04-27 17:39 | CONS ---
Assessment/Plan Cardiology NYHA: IV Heart Failure Type: Acute Heart Failure Type: Both Assessment/Plan Hospital Course (Demo Recall) Atrial fibrillation Acute decompensated systolic congestive heart failure, improved Cardia myopathy Mitral and tricuspid valve regurgitation GI bleed Heart rate trend overall remained stable Patient with overall improved respiratory status Diuretics as per nephrology Titrate beta-elsa as needed for heart rate control Currently off anticoagulation secondary to GI bleed Consultation Date/Type/Reason Admit Date/Time Apr 12, 2019 at 12:21 Initial Consult Date 04/25/19 Type of Consult Cardiology Requesting Provider: MARVIN FOX MD Date/Time of Note DATE: 04/27/19 TIME: 17:36 24 HR Interval Summary Free Text/Dictation No shortness of breath, palpitations, chest pain or dizziness Exam/Review of Systems Vital Signs Vitals Vital Signs Date Temp Pulse Resp B/P (MAP) Pulse Ox O2 O2 Flow FiO2 Time Delivery Rate 04/27/19 97.6 77 19 110/72 96 16:12 (85) 04/27/19 Nasal 4.0 15:38 Cannula 04/27/19 35 05:06 Intake and Output 04/26/19 04/26/19 04/27/19 1515:00 23:00 07:00 IntakeIntake Total 160 ml 150 ml OutputOutput Total 1 ml BalanceBalance -1 ml 160 ml 150 ml Exam Constitutional: alert, oriented Head: normocephalic Respiratory: other (course bs, no wheeze) Cardiovascular: regular rate and rhythm (s1s2) Gastrointestinal: soft, non-tender, bowel sounds Extremities: other (no edema) Labs Result Diagram: 04/27/19 0555 04/27/19 0555 Results 24hrs Laboratory Tests Test 04/27/19 05:55 White Blood Count 8.2 # Red Blood Count 2.71 L Hemoglobin 7.9 L Hematocrit 24.4 L Mean Corpuscular Volume 90.0 Mean Corpuscular Hemoglobin 29.2 Mean Corpuscular Hemoglobin Concent 32.4 Red Cell Distribution Width 15.6 H Platelet Count 166 Mean Platelet Volume 8.9 Immature Granulocytes % 0.500 H Neutrophils % 72.3 Lymphocytes % 14.5 L Monocytes % 10.3 Eosinophils % 2.2 Basophils % 0.2 Nucleated Red Blood Cells % 0.6 H Immature Granulocytes # 0.040 H Neutrophils # 5.9 Lymphocytes # 1.2 Monocytes # 0.9 Eosinophils # 0.2 Basophils # 0.0 Nucleated Red Blood Cells # 0.1 H Sodium Level 141 Potassium Level 3.5 Chloride Level 104 Carbon Dioxide Level 35 H Anion Gap 2 L Blood Urea Nitrogen 23 H Creatinine 1.19 Glucose Level 90 Calcium Level 8.1 L Phosphorus Level 4.1 Magnesium Level 2.2 Albumin 2.6 L Medications Medications Current Medications Aspirin (Halfprin) 81 mg DAILY PO Last administered on 04/24/19 09:09; Admin Dose 81 MG; Start 04/13/19 at 09:00 Atorvastatin Calcium (Lipitor) 20 mg QHS PO Last administered on 04/26/19 20:48; Admin Dose 20 MG; Start 04/12/19 at 21:00 Ondansetron HCl (Zofran Inj) 4 mg Q6H PRN IV NAUSEA AND/OR VOMITING Last administered on 04/15/19 16:27; Admin Dose 4 MG; Start 04/12/19 at 13:00 Acetaminophen (Tylenol Tab) 650 mg Q6H PRN PO PAIN LEVEL 1-3 OR FEVER Last administered on 04/22/19 00:29; Admin Dose 650 MG; Start 04/12/19 at 13:00 Docusate Sodium (Colace) 100 mg Q12H PRN PO CONSTIPATION; Start 04/12/19 at 13:00 Magnesium Hydroxide (Milk Of Mag) 30 ml DAILY PRN PO CONSTIPATION; Start 04/12/19 at 13:00 Pantoprazole (Protonix Tab) 40 mg DAILY@06 PO Last administered on 04/24/19 05:47; Admin Dose 40 MG; Start 04/13/19 at 06:00; Status Hold Apixaban (Eliquis) 5 mg BID PO Last administered on 04/24/19 09:10; Admin Dose 5 MG; Start 04/12/19 at 21:00; Status Hold Metoprolol Tartrate (Lopressor) 5 mg Q2H PRN IV heart rate over 110 Last administered on 04/15/19 09:11; Admin Dose 5 MG; Start 04/13/19 at 09:30 Morphine Sulfate (morphine) 2 mg Q4H PRN IV SEVERE PAIN LEVEL 7-10 Last administered on 04/23/19 23:14; Admin Dose 2 MG; Start 04/13/19 at 23:30 IV Flush (NS 10 ml) 10 ml Q8 PRN IV IV PROTOCOL; Start 04/14/19 at 15:00 Lorazepam (Ativan) 1 mg Q6H PRN IV anxiety Last administered on 04/22/19 23:35; Admin Dose 1 MG; Start 04/14/19 at 15:00 [facility] This patient urias... PRN PRN XX WOUND CARE; Start 04/14/19 at 21:00 Amiodarone HCl (Cordarone) 400 mg TID PO Last administered on 04/17/19 13:10; Admin Dose 400 MG; Start 04/16/19 at 13:00; Status Hold Metoprolol Succinate (Toprol Xl) 100 mg BID PO Last administered on 04/27/19 10:10; Admin Dose 100 MG; Start 04/19/19 at 21:00 Albuterol/ Ipratropium (Duoneb) 3 ml Q6HWA RESP THERAPY HHN Last administered on 04/27/19 07:18; Admin Dose 3 ML; Start 04/20/19 at 20:00 Albuterol/ Ipratropium (Duoneb) 3 ml Q2H RESP THERAPY PRN HHN shortness of breath Last administered on 04/24/19 04:16; Admin Dose 3 ML; Start 04/20/19 at 15:00 Budesonide (Pulmicort (Neb)) 0.5 mg BID RESP THERAPY HHN Last administered on 04/27/19 07:18; Admin Dose 0.5 MG; Start 04/20/19 at 20:00 Silver Sulfadiazine (Thermazene 1% 25 Gm) 1 applic DAILY TOP Last administered on 04/27/19 10:12; Admin Dose 1 APPLIC; Start 04/22/19 at 12:00 Bumetanide (Bumex) 1 mg DAILY PO Last administered on 04/27/19 10:10; Admin Dose 1 MG; Start 04/25/19 at 09:00 Pantoprazole 80 mg/Sodium Chloride 100 ml @ 10 mls/hr Q10H IV Last administered on 04/27/19 10:11; Admin Dose 10 MLS/HR; Start 04/24/19 at 19:30 Digoxin (Digoxin) 0.125 mg DAILY@13 PO Last administered on 8/7/19at 13:16; Admin Dose 0.125 MG; Start 04/27/19 at 13:00 Christian Araujo DO Apr 27, 2019 17:39
[2019-04-27] MEDS ORDERED: IOHEXOL 300MG/ML 150 ML BTL ONE (20:41)
[2019-04-27] MEDS ORDERED: SOD CHLORIDE 0.9% 100 ML ONE (20:41)
[2019-04-27] MEDS: ATORVASTATIN 20 MG TAB PO SCH (21:20)
[2019-04-28] VITALS (10 sets, daily range): BP systolic 101–127; BP diastolic 65–83; PULSE 59–92; RESP 18–20
[2019-04-28] MEDS: BUDESONIDE (NEB) 0.5MG/2ML AMP HHN SCH ×2 (07:53→20:17)
[2019-04-28] MEDS: ALBUTEROL/IPRATROPIUM (NEB) 3 ML AMP HHN SCH ×4 (07:53→20:17)
[2019-04-28] MEDS ORDERED: POTASSIUM CHLORIDE (SR) 20 MEQ TAB PO STA (08:02)
--- NOTE | 2019-04-28 09:20 | CONS ---
Consultation Date/Type/Reason Admit Date/Time Apr 12, 2019 at 12:21 Initial Consult Date 04/13/19 Type of Consult Pulmonary/critical care Patient is a 63-year-old [place] gentleman who came into the hospital with history of shortness of breath for the last 1 day. Patient denied having any chest pain, any fever, wheezing or any sputum production. Upon evaluation patient was found to be in A. fib with RVR. Patient has been rate controlled. By the time I saw the patient in ICU, patient is sitting comfortably in bed and denied having any shortness of breath, rest pain, or any other symptoms. Past medical history; 1. History of apparent chronic renal insufficiency. 2. History of hypertension. Medications; reviewed. Allergies; none. Social history; patient never smoked. Occupational history; patient is retired. Family history; noncontributory. Review of systems; denies any headache, chest pain, shortness of breath has improved. Denies any coughing, wheezing, sputum production or fever. Denies any abdominal pain, nausea vomiting. Any orthopnea. General exam; elderly male, laying comfortably in bed. Currently in no distress. Requesting Provider: MARVIN FOX MD Date/Time of Note DATE: 04/28/19 TIME: 09:18 24 HR Interval Summary Free Text/Dictation Patient's condition is stable. Remains completely awake and alert. Denies any shortness of breath. General exam; elderly male, awake alert, currently no distress. On 2 L nasal cannula. HEENT exam; supple neck, positive JVD. No lymphadenopathy. Midline trachea. No thyromegaly. Patient has few missing teeth. No neck masses. Chest exam; diminished but clear breath sounds. S1-S2 audible, no murmurs. Irregular rhythm. Abdomen exam; soft, nontender. No organomegaly. Bowel sounds audible. Extremity exam; no peripheral edema clubbing. [employer] exam; no focal deficit. Assessment and recommendations; 1. Patient admitted with hypoxemia due to CHF exacerbation as well as A. fib with RVR with significant interval clinical improvement. 2. Mild chronic renal insufficiency. 3. Mild hypercapnia. Continue current supportive care. Consider discharge. Exam/Review of Systems Exam Vitals Vital Signs Date Temp Pulse Resp B/P (MAP) Pulse Ox O2 O2 Flow FiO2 Time Delivery Rate 04/28/19 95 Nasal 07:54 Cannula 04/28/19 4.0 07:54 04/28/19 98.0 72 20 122/71 07:14 (88) 04/28/19 35 05:00 Intake and Output 04/27/19 04/27/19 04/28/19 1515:00 23:00 07:00 IntakeIntake Total 400 ml 200 ml 450 ml OutputOutput Total 100 ml BalanceBalance 400 ml 100 ml 450 ml Results Result Diagram: 04/28/19 0603 04/28/19 0603 Results 24hrs Laboratory Tests Test 04/28/19 06:03 White Blood Count 7.4 Red Blood Count 2.65 L Hemoglobin 7.8 L Hematocrit 24.6 L Mean Corpuscular Volume 92.8 Mean Corpuscular Hemoglobin 29.4 Mean Corpuscular Hemoglobin Concent 31.7 L Red Cell Distribution Width 15.5 H Platelet Count 191 Mean Platelet Volume 9.3 Immature Granulocytes % 0.500 H Neutrophils % 74.2 Lymphocytes % 14.2 L Monocytes % 8.9 Eosinophils % 1.9 Basophils % 0.3 Nucleated Red Blood Cells % 0.7 H Immature Granulocytes # 0.040 H Neutrophils # 5.5 Lymphocytes # 1.1 Monocytes # 0.7 Eosinophils # 0.1 Basophils # 0.0 Nucleated Red Blood Cells # 0.1 H Sodium Level 139 Potassium Level 3.6 Chloride Level 101 Carbon Dioxide Level 33 H Anion Gap 5 Blood Urea Nitrogen 20 Creatinine 1.19 Glucose Level 137 # Calcium Level 7.9 L Phosphorus Level 4.3 Magnesium Level 2.0 Albumin 2.6 L Medications Medication Current Medications Aspirin (Halfprin) 81 mg DAILY PO Last administered on 04/24/19 09:09; Admin Dose 81 MG; Start 04/13/19 at 09:00 Atorvastatin Calcium (Lipitor) 20 mg QHS PO Last administered on 04/27/19 21:20; Admin Dose 20 MG; Start 04/12/19 at 21:00 Ondansetron HCl (Zofran Inj) 4 mg Q6H PRN IV NAUSEA AND/OR VOMITING Last a dministered on 04/15/19at 16:27; Admin Dose 4 MG; Start 04/12/19 at 13:00 Acetaminophen (Tylenol Tab) 650 mg Q6H PRN PO PAIN LEVEL 1-3 OR FEVER Last administered on 04/22/19at 00:29; Admin Dose 650 MG; Start 04/12/19 at 13:00 Docusate Sodium (Colace) 100 mg Q12H PRN PO CONSTIPATION; Start 04/12/19 at 13:00 Magnesium Hydroxide (Milk Of Mag) 30 ml DAILY PRN PO CONSTIPATION; Start 04/12/19 at 13:00 Pantoprazole (Protonix Tab) 40 mg DAILY@06 PO Last administered on 04/24/19 05:47; Admin Dose 40 MG; Start 04/13/19 at 06:00; Status Hold Apixaban (Eliquis) 5 mg BID PO Last administered on 04/24/19 09:10; Admin Dose 5 MG; Start 04/12/19 at 21:00; Status Hold Metoprolol Tartrate (Lopressor) 5 mg Q2H PRN IV heart rate over 110 Last administered on 04/15/19 09:11; Admin Dose 5 MG; Start 04/13/19 at 09:30 Morphine Sulfate (morphine) 2 mg Q4H PRN IV SEVERE PAIN LEVEL 7-10 Last administered on 04/23/19 23:14; Admin Dose 2 MG; Start 04/13/19 at 23:30 IV Flush (NS 10 ml) 10 ml Q8 PRN IV IV PROTOCOL; Start 04/14/19 at 15:00 Lorazepam (Ativan) 1 mg Q6H PRN IV anxiety Last administered on 04/22/19 23:35; Admin Dose 1 MG; Start 04/14/19 at 15:00 [facility] This patient urias... PRN PRN XX WOUND CARE; Start 04/14/19 at 21:00 Amiodarone HCl (Cordarone) 400 mg TID PO Last administered on 04/17/19 13:10; Admin Dose 400 MG; Start 04/16/19 at 13:00; Status Hold Metoprolol Succinate (Toprol Xl) 100 mg BID PO Last administered on 04/27/19 2 1:24; Admin Dose 100 MG; Start 04/19/19 at 21:00 Albuterol/ Ipratropium (Duoneb) 3 ml Q6HWA RESP THERAPY HHN Last administered on 04/28/19 07:53; Admin Dose 3 ML; Start 04/20/19 at 20:00 Albuterol/ Ipratropium (Duoneb) 3 ml Q2H RESP THERAPY PRN HHN shortness of breath Last administered on 04/24/19 04:16; Admin Dose 3 ML; Start 04/20/19 at 15:00 Budesonide (Pulmicort (Neb)) 0.5 mg BID RESP THERAPY HHN Last administered on 04/28/19 07:53; Admin Dose 0.5 MG; Start 04/20/19 at 20:00 Silver Sulfadiazine (Thermazene 1% 25 Gm) 1 applic DAILY TOP Last administered on 04/27/19 10:12; Admin Dose 1 APPLIC; Start 04/22/19 at 12:00 Bumetanide (Bumex) 1 mg DAILY PO Last administered on 04/27/19 10:10; Admin Dose 1 MG; Start 04/25/19 at 09:00 Pantoprazole 80 mg/Sodium Chloride 100 ml @ 10 mls/hr Q10H IV Last administered on 04/27/19 21:20; Admin Dose 10 MLS/HR; Start 04/24/19 at 19:30 Digoxin (Digoxin) 0.125 mg DAILY@13 PO Last administered on 04/27/19 13:16; Admin Dose 0.125 MG; Start 04/27/19 at 13:00 BONI BAER Apr 28, 2019 09:20
[2019-04-28] MEDS: METOPROLOL (XL) 100 MG TAB PO SCH ×2 (10:14→20:11)
--- NOTE | 2019-04-28 10:43 | PN ---
Date/Time of Note Date/Time of Note DATE: 04/28/19 TIME: 10:42 Assessment/Plan VTE Prophylaxis Risk score (from Ns)>0 risk: 12 [place]CD applied [place] [facility] [place] Pharmacological prophylaxis: NA/contraindicated Pharm contraindication: bleeding Lines/Catheters IV [facility] Type (from [facility] Peripheral IV Urinary Cath still in place: No Assessment/Plan Hospital Course Assessment: Assessment/Plan Ulceration nodularity in the cecum. Suspect for neoplastic process Hematochezia Colonoscopy 04/27/2019 Ulceration nodularity in the cecum. Suspect for neoplastic process. Biopsies obtained. 1 cm sessile polyp in the proximal rectum. Snared and retrieved. 8 mm sessile polyp in the rectum. Snared and retrieved. Mild diverticulosis. Acute on chronic anemia- 2/2 to above S/p Acute hypoxic respiratory failure- stable Bilateral pneumonia Leukocytosis Elevated Tropin -Likely 2/.2 to demand Acute systolic congestive heart failure- improving New onset Afib with RVR -Eliquis on hold DANYA- resolved Elevated LFT- improving- likely 2/2 to hemodynamic instability vs congestion -Hepatitis B Core AB- positive HTN Sleep apnea - on BIPAP qhs Plan: Review pathology Hold anticoagulation until pathology is back. CT abdomen and pelvis with contrast.- noted CEA- pending Repeat colonoscopy recommendations pending review of pathology Patient seen in collaboration with Dr. Devi Subjective: Exam PHYSICAL EXAMINATION: GENERAL:Alert & oriented x 3, in no acute distress SKIN: No lesions HEAD: Normocephalic, atraumatic, no tenderness. EYES: Pupils equal reactive to light and accommodation, full extraocular movements, sclera clear, non-icteric, no discharge. EARS/NOSE AND THROAT: Ears normal, nose normal. NECK: Supple, no masses CHEST: Inspection within normal limits. CARDIOVASCULAR: Heart: Irregular rate and rhythm- HR low 100's RESPIRATORY: Diminished - O2 at [address] GASTROINTESTINAL AND LIVER: Abdomen: Soft, non tenderness, no guarding, no rebound tenderness, normoactive bowel sounds. Rectal: Deferred. EXTREMITIES: No cyanosis, clubbing or edema. Result Diagram: 04/28/19 0603 04/28/19 0603 Results 24hrs Laboratory Tests Test 04/28/19 05:59 04/28/19 06:03 04/28/19 09:11 Iron Level 19 L Total Iron Binding Capacity 287 Percent Iron Saturation 7 L White Blood Count 7.4 Red Blood Count 2.65 L Hemoglobin 7.8 L Hematocrit 24.6 L Mean Corpuscular Volume 92.8 Mean Corpuscular Hemoglobin 29.4 Mean Corpuscular Hemoglobin Concent 31.7 L Red Cell Distribution Width 15.5 H Platelet Count 191 Mean Platelet Volume 9.3 Immature Granulocytes % 0.500 H Neutrophils % 74.2 Lymphocytes % 14.2 L Monocytes % 8.9 Eosinophils % 1.9 Basophils % 0.3 Nucleated Red Blood Cells % 0.7 H Immature Granulocytes # 0.040 H Neutrophils # 5.5 Lymphocytes # 1.1 Monocytes # 0.7 Eosinophils # 0.1 Basophils # 0.0 Nucleated Red Blood Cells # 0.1 H Sodium Level 139 Potassium Level 3.6 Chloride Level 101 Carbon Dioxide Level 33 H Anion Gap 5 Blood Urea Nitrogen 20 Creatinine 1.19 Glucose Level 137 # Calcium Level 7.9 L Phosphorus Level 4.3 Magnesium Level 2.0 Albumin 2.6 L Prothrombin Time 14.2 Prothrombin Time Ratio 1.1 INR International Normalized Ratio 1.09 Lactate Dehydrogenase 558 Total Protein 5.6 L Exam/Review of Systems Exam Vitals Vital Signs Date Temp Pulse Resp B/P (MAP) Pulse Ox O2 O2 Flow FiO2 Time Delivery Rate 04/28/19 95 Nasal 07:54 Cannula 04/28/19 4.0 07:54 04/28/19 98.0 72 20 122/71 07:14 (88) 04/28/19 35 05:00 Intake and Output 04/27/19 04/27/19 04/28/19 1515:00 23:00 07:00 IntakeIntake Total 400 ml 200 ml 450 ml OutputOutput Total 100 ml BalanceBalance 400 ml 100 ml 450 ml Results Results 24hrs Laboratory Tests Test 04/28/19 05:59 04/28/19 06:03 04/28/19 09:11 Iron Level 19 L Total Iron Binding Capacity 287 Percent Iron Saturation 7 L White Blood Count 7.4 Red Blood Count 2.65 L Hemoglobin 7.8 L Hematocrit 24.6 L Mean Corpuscular Volume 92.8 Mean Corpuscular Hemoglobin 29.4 Mean Corpuscular Hemoglobin Concent 31.7 L Red Cell Distribution Width 15.5 H Platelet Count 191 Mean Platelet Volume 9.3 Immature Granulocytes % 0.500 H Neutrophils % 74.2 Lymphocytes % 14.2 L Monocytes % 8.9 Eosinophils % 1.9 Basophils % 0.3 Nucleated Red Blood Cells % 0.7 H Immature Granulocytes # 0.040 H Neutrophils # 5.5 Lymphocytes # 1.1 Monocytes # 0.7 Eosinophils # 0.1 Basophils # 0.0 Nucleated Red Blood Cells # 0.1 H Sodium Level 139 Potassium Level 3.6 Chloride Level 101 Carbon Dioxide Level 33 H Anion Gap 5 Blood Urea Nitrogen 20 Creatinine 1.19 Glucose Level 137 # Calcium Level 7.9 L Phosphorus Level 4.3 Magnesium Level 2.0 Albumin 2.6 L Prothrombin Time 14.2 Prothrombin Time Ratio 1.1 INR International Normalized Ratio 1.09 Lactate Dehydrogenase 558 Total Protein 5.6 L Medications Medication Current Medications Aspirin (Halfprin) 81 mg DAILY PO Last administered on 04/24/19 09:09; Admin Dose 81 MG; Start 04/13/19 at 09:00 Atorvastatin Calcium (Lipitor) 20 mg QHS PO Last administered on 04/27/19 21:20; Admin Dose 20 MG; Start 04/12/19 at 21:00 Ondansetron HCl (Zofran Inj) 4 mg Q6H PRN IV NAUSEA AND/OR VOMITING Last administered on 04/15/19 16:27; Admin Dose 4 MG; Start 04/12/19 at 13:00 Acetaminophen (Tylenol Tab) 650 mg Q6H PRN PO PAIN LEVEL 1-3 OR FEVER Last administered on 04/22/19 00:29; Admin Dose 650 MG; Start 04/12/19 at 13:00 Docusate Sodium (Colace) 100 mg Q12H PRN PO CONSTIPATION; Start 04/12/19 at 13:00 Magnesium Hydroxide (Milk Of Mag) 30 ml DAILY PRN PO CONSTIPATION; Start 04/12/19 at 13:00 Pantoprazole (Protonix Tab) 40 mg DAILY@06 PO Last administered on 04/24/19 05:47; Admin Dose 40 MG; Start 04/13/19 at 06:00; Status Hold Apixaban (Eliquis) 5 mg BID PO Last administered on 04/24/19 09:10; Admin Dose 5 MG; Start 04/12/19 at 21:00; Status Hold Metoprolol Tartrate (Lopressor) 5 mg Q2H PRN IV heart rate over 110 Last admi nistered on 04/15/19 09:11; Admin Dose 5 MG; Start 04/13/19 at 09:30 Morphine Sulfate (morphine) 2 mg Q4H PRN IV SEVERE PAIN LEVEL 7-10 Last administered on 04/23/19 23:14; Admin Dose 2 MG; Start 04/13/19 at 23:30 IV Flush (NS 10 ml) 10 ml Q8 PRN IV IV PROTOCOL; Start 04/14/19 at 15:00 Lorazepam (Ativan) 1 mg Q6H PRN IV anxiety Last administered on 04/22/19 23:35; Admin Dose 1 MG; Start 04/14/19 at 15:00 Miscellaneous Information (Pending [facility] Order For Wound Care) This patient urias... PRN PRN XX WOUND CARE; Start 04/14/19 at 21:00 Amiodarone HCl (Cordarone) 400 mg TID PO Last administered on 04/17/19 13:10; Admin Dose 400 MG; Start 04/16/19 at 13:00; Status Hold Metoprolol Succinate (Toprol Xl) 100 mg BID PO Last administered on 04/28/19 10:14; Admin Dose 100 MG; Start 04/19/19 at 21:00 Albuterol/ Ipratropium (Duoneb) 3 ml Q6HWA RESP THERAPY HHN Last administered on 04/28/19 07:53; Admin Dose 3 ML; Start 04/20/19 at 20:00 Albuterol/ Ipratropium (Duoneb) 3 ml Q2H RESP THERAPY PRN HHN shortness of breath Last administered on 04/24/19 04:16; Admin Dose 3 ML; Start 04/20/19 at 15:00 Budesonide (Pulmicort (Neb)) 0.5 mg BID RESP THERAPY HHN Last administered on 04/28/19 07:53; Admin Dose 0.5 MG; Start 04/20/19 at 20:00 Silver Sulfadiazine (Thermazene 1% 25 Gm) 1 applic DAILY TOP Last administered on 04/27/19 10:12; Admin Dose 1 APPLIC; Start 04/22/19 at 12:00 Bumetanide (Bumex) 1 mg DAILY PO Last administered on 04/27/19 10:10; Admin Dose 1 MG; Start 04/25/19 at 09:00 Pantoprazole 80 mg/Sodium Chloride 100 ml @ 10 mls/hr Q10H IV Last administered on 04/27/19at 21:20; Admin Dose 10 MLS/HR; Start 04/24/19 at 19:30 Digoxin (Digoxin) 0.125 mg DAILY@13 PO Last administered on 04/27/19at 13:16; Admin Dose 0.125 MG; Start 04/27/19 at 13:00 ROMAINE PENG Apr 28, 2019 10:43
--- NOTE | 2019-04-28 10:51 | PN ---
Date/Time of Note Date/Time of Note DATE: 04/28/19 TIME: 10:45 Assessment/Plan VTE Prophylaxis Risk score (from Ns)>0 risk: 12 SCD applied (from Ns): Yes Pharmacological prophylaxis: NA/contraindicated Pharm contraindication: bleeding Lines/Catheters IV Catheter Type (from [facility]): Peripheral IV Urinary Cath still in place: No Assessment/Plan Assessment/Plan 1. Ulcerations in cecum - most likely etiology of acute GI bleeding - biopsies performed during colonoscopy 04/27 - CT scan noted with thickening of cecum. Results discussed with patient - CM consulted for outpatient Oncology follow up given concern for cancer 2. Acute GI bleeding- improved - hgb stable - will hold off on anticoagulation until biopsies return - colonoscopy performed 04/27 - GI on board and appreciate consultation 3. Acute hypoxic respiratory failure- stable - CT A/P noted with bilateral pleural effusions. Thoracentesis discussed with patient and agreeable - Continued on 4L O2 and no respiratory distress noted - Pulm consultation appreciated. - Nebs PRN 4. Acute systolic congestive heart failure- stable - BNP noted - Cardiology on board and appreciate recommendations - Nephrology on board for management of diuretics. Will continue on Bumex - monitor I/O and daily weights - ECHO results noted with low EF 5. New onset afib with RVR- stable - doing well on digoxin - continue on PO amiodarone - on BB - Cardiology consultation appreciated - Eliquis on hold given GI bleed 6. DANYA- resolving - Nephrology consultation appreciated - US results noted - renally dose medications 7. Bilateral pneumonia- resolved - seen on CXR - ID consultation appreciated and d/c antibiotics. will monitor off antibiotics per ID recs - continue Neb tx PRN 8. Elevated trop - most likely type 2 demand - will need stress test when stable either inpatient or outpatient and possible PCI in future when renal function improves - no chest pain noted 9. Sleep apnea - on BIPAP qhs 10. HTN - continue home medications and adjust as needed 11. Disposition - Thoracentesis ordered for today. Will await pathology results taken during colonoscopy. CM aware of need for outpatient oncology follow up Result Diagram: 04/28/19 0603 04/28/19 0603 Results 24hrs Laboratory Tests Test 04/28/19 05:59 04/28/19 06:03 04/28/19 09:11 Iron Level 19 L Total Iron Binding Capacity 287 Percent Iron Saturation 7 L White Blood Count 7.4 Red Blood Count 2.65 L Hemoglobin 7.8 L Hematocrit 24.6 L Mean Corpuscular Volume 92.8 Mean Corpuscular Hemoglobin 29.4 Mean Corpuscular Hemoglobin Concent 31.7 L Red Cell Distribution Width 15.5 H Platelet Count 191 Mean Platelet Volume 9.3 Immature Granulocytes % 0.500 H Neutrophils % 74.2 Lymphocytes % 14.2 L Monocytes % 8.9 Eosinophils % 1.9 Basophils % 0.3 Nucleated Red Blood Cells % 0.7 H Immature Granulocytes # 0.040 H Neutrophils # 5.5 Lymphocytes # 1.1 Monocytes # 0.7 Eosinophils # 0.1 Basophils # 0.0 Nucleated Red Blood Cells # 0.1 H Sodium Level 139 Potassium Level 3.6 Chloride Level 101 Carbon Dioxide Level 33 H Anion Gap 5 Blood Urea Nitrogen 20 Creatinine 1.19 Glucose Level 137 # Calcium Level 7.9 L Phosphorus Level 4.3 Magnesium Level 2.0 Albumin 2.6 L Prothrombin Time 14.2 Prothrombin Time Ratio 1.1 INR International Normalized Ratio 1.09 Lactate Dehydrogenase 558 Total Protein 5.6 L Subjective 24 Hr Interval Summary Free Text/Dictation Patient denies any new issues. Still with cough and mild shortness of breath. No acute overnight events. Exam/Review of Systems Exam Vitals Vital Signs Date Temp Pulse Resp B/P (MAP) Pulse Ox O2 O2 Flow FiO2 Time Delivery Rate 04/28/19 95 Nasal 07:54 Cannula 04/28/19 4.0 07:54 04/28/19 98.0 72 20 122/71 07:14 (88) 04/28/19 35 05:00 Intake and Output 04/27/19 04/27/19 04/28/19 1515:00 23:00 07:00 IntakeIntake Total 400 ml 200 ml 450 ml OutputOutput Total 100 ml BalanceBalance 400 ml 100 ml 450 ml Exam General: Patient is laying in bed and answers questions appropriately Neck: Supple Respiratory: Coarse to auscultation bilaterally. no wheezing Cardiovascular: regular rate and rhythm, no obvious murmurs Gastrointestinal: soft, non-tender to palpation, bowel sounds heard. Ext: Moves all extremities spontaneously Skin: No new skin lesions Results Results 24hrs Laboratory Tests Test 04/28/19 05:59 04/28/19 06:03 04/28/19 09:11 Iron Level 19 L Total Iron Binding Capacity 287 Percent Iron Saturation 7 L White Blood Count 7.4 Red Blood Count 2.65 L Hemoglobin 7.8 L Hematocrit 24.6 L Mean Corpuscular Volume 92.8 Mean Corpuscular Hemoglobin 29.4 Mean Corpuscular Hemoglobin Concent 31.7 L Red Cell Distribution Width 15.5 H Platelet Count 191 Mean Platelet Volume 9.3 Immature Granulocytes % 0.500 H Neutrophils % 74.2 Lymphocytes % 14.2 L Monocytes % 8.9 Eosinophils % 1.9 Basophils % 0.3 Nucleated Red Blood Cells % 0.7 H Immature Granulocytes # 0.040 H Neutrophils # 5.5 Lymphocytes # 1.1 Monocytes # 0.7 Eosinophils # 0.1 Basophils # 0.0 Nucleated Red Blood Cells # 0.1 H Sodium Level 139 Potassium Level 3.6 Chloride Level 101 Carbon Dioxide Level 33 H Anion Gap 5 Blood Urea Nitrogen 20 Creatinine 1.19 Glucose Level 137 # Calcium Level 7.9 L Phosphorus Level 4.3 Magnesium Level 2.0 Albumin 2.6 L Prothrombin Time 14.2 Prothrombin Time Ratio 1.1 INR International Normalized Ratio 1.09 Lactate Dehydrogenase 558 Total Protein 5.6 L Medications Medication Current Medications Aspirin (Halfprin) 81 mg DAILY PO Last administered on 04/24/19 09:09; Admin Dose 81 MG; Start 04/13/19 at 09:00 Atorvastatin Calcium (Lipitor) 20 mg QHS PO Last administered on 04/27/19 21:20; Admin Dose 20 MG; Start 04/12/19 at 21:00 Ondansetron HCl (Zofran Inj) 4 mg Q6H PRN IV NAUSEA AND/OR VOMITING Last administered on 04/15/19 16:27; Admin Dose 4 MG; Start 04/12/19 at 13:00 Acetaminophen (Tylenol Tab) 650 mg Q6H PRN PO PAIN LEVEL 1-3 OR FEVER Last administered on 04/22/19 00:29; Admin Dose 650 MG; Start 04/12/19 at 13:00 Docusate Sodium (Colace) 100 mg Q12H PRN PO CONSTIPATION; Start 04/12/19 at 13:00 Magnesium Hydroxide (Milk Of Mag) 30 ml DAILY PRN PO CONSTIPATION; Start 04/12/19 at 13:00 Pantoprazole (Protonix Tab) 40 mg DAILY@06 PO Last administered on 04/24/19 05:47; Admin Dose 40 MG; Start 04/13/19 at 06:00; Status Hold Apixaban (Eliquis) 5 mg BID PO Last administered on 04/24/19 09:10; Admin Dose 5 MG; Start 04/12/19 at 21:00; Status Hold Metoprolol Tartrate (Lopressor) 5 mg Q2H PRN IV heart rate over 110 Last administered on 04/15/19 09:11; Admin Dose 5 MG; Start 04/13/19 at 09:30 Morphine Sulfate (morphine) 2 mg Q4H PRN IV SEVERE PAIN LEVEL 7-10 Last administered on 04/23/19 23:14; Admin Dose 2 MG; Start 04/13/19 at 23:30 IV Flush (NS 10 ml) 10 ml Q8 PRN IV IV PROTOCOL; Start 04/14/19 at 15:00 Lorazepam (Ativan) 1 mg Q6H PRN IV anxiety Last administered on 04/22/19 23:35; Admin Dose 1 MG; Start 04/14/19 at 15:00 [facility]isc[facility] This patient urias ... PRN PRN XX WOUND CARE; Start 04/14/19 at 21:00 Amiodarone HCl (Cordarone) 400 mg TID PO Last administered on 04/17/19 13:10; Admin Dose 400 MG; Start 04/16/19 at 13:00; Status Hold Metoprolol Succinate (Toprol Xl) 100 mg BID PO Last administered on 04/28/19 10:14; Admin Dose 100 MG; Start 04/19/19 at 21:00 Albuterol/ Ipratropium (Duoneb) 3 ml Q6HWA RESP THERAPY HHN Last administered on 04/28/19 07:53; Admin Dose 3 ML; Start 04/20/19 at 20:00 Albuterol/ Ipratropium (Duoneb) 3 ml Q2H RESP THERAPY PRN HHN shortness of breath Last administered on 04/24/19 04:16; Admin Dose 3 ML; Start 04/20/19 at 15:00 Budesonide (Pulmicort (Neb)) 0.5 mg BID RESP THERAPY HHN Last administered on 04/28/19 07:53; Admin Dose 0.5 MG; Start 04/20/19 at 20:00 Silver Sulfadiazine (Thermazene 1% 25 Gm) 1 applic DAILY TOP Last administered on 04/27/19at 10:12; Admin Dose 1 APPLIC; Start 04/22/19 at 12:00 Bumetanide (Bumex) 1 mg DAILY PO Last administered on 04/27/19at 10:10; Admin Dose 1 MG; Start 04/25/19 at 09:00 Pantoprazole 80 mg/Sodium Chloride 100 ml @ 10 mls/hr Q10H IV Last administered on 04/27/19at 21:20; Admin Dose 10 MLS/HR; Start 04/24/19 at 19:30 Digoxin (Digoxin) 0.125 mg DAILY@13 PO Last administered on 04/27/19at 13:16; Admin Dose 0.125 MG; Start 04/27/19 at 13:00 MARVIN FOX MD Apr 28, 2019 10:51
[2019-04-28] MEDS ORDERED: LIDOCAINE 1% (MPF) 5 ML VIAL ONE (10:58)
[2019-04-28] MEDS: ASPIRIN (EC) 81 MG TAB PO SCH (11:00)
--- NOTE | 2019-04-28 11:02 | PN ---
Date/Time of Note Date/Time of Note DATE: 04/28/19 TIME: 11:00 Assessment/Plan VTE Prophylaxis Risk score (from [facility] [place])>0 risk: 12 SCD applied (from [facility] [place]): Yes Pharmacological prophylaxis: NA/contraindicated Pharm contraindication: bleeding Lines/Catheters IV [facility] (from [facility] Peripheral IV Urinary Cath still in place: No Assessment/Plan Hospital Course Assessment: Assessment/Plan Ulceration nodularity in the cecum. Suspect for neoplastic process Hematochezia Colonoscopy 04/27/2019 Ulceration nodularity in the cecum. Suspect for neoplastic process. Biopsies obtained. 1 cm sessile polyp in the proximal rectum. Snared and retrieved. 8 mm sessile polyp in the rectum. Snared and retrieved. Mild diverticulosis. Acute on chronic anemia- 2/2 to above S/p Acute hypoxic respiratory failure- stable Bilateral pneumonia Leukocytosis Elevated Tropin -Likely 2/.2 to demand Acute systolic congestive heart failure- improving New onset Afib with RVR -Eliquis on hold DANYA- resolved Elevated LFT- improving- likely 2/2 to hemodynamic instability vs congestion -Hepatitis B Core AB- positive HTN Sleep apnea - on BIPAP qhs Plan: Review pathology Hold anticoagulation until pathology is back. CT abdomen and pelvis with contrast.- noted CEA- pending Repeat colonoscopy recommendations pending review of pathology Patient seen in collaboration with Dr. Devi Subjective: Patient currently off the floor Will reassess upon return or in am. Exam off the floor Result Diagram: 04/28/19 0603 04/28/19 0603 Results 24hrs Laboratory Tests Test 04/28/19 05:59 04/28/19 06:03 04/28/19 09:11 Iron Level 19 L Total Iron Binding Capacity 287 Percent Iron Saturation 7 L White Blood Count 7.4 Red Blood Count 2.65 L Hemoglobin 7.8 L Hematocrit 24.6 L Mean Corpuscular Volume 92.8 Mean Corpuscular Hemoglobin 29.4 Mean Corpuscular Hemoglobin Concent 31.7 L Red Cell Distribution Width 15.5 H Platelet Count 191 Mean Platelet Volume 9.3 Immature Granulocytes % 0.500 H Neutrophils % 74.2 Lymphocytes % 14.2 L Monocytes % 8.9 Eosinophils % 1.9 Basophils % 0.3 Nucleated Red Blood Cells % 0.7 H Immature Granulocytes # 0.040 H Neutrophils # 5.5 Lymphocytes # 1.1 Monocytes # 0.7 Eosinophils # 0.1 Basophils # 0.0 Nucleated Red Blood Cells # 0.1 H Sodium Level 139 Potassium Level 3.6 Chloride Level 101 Carbon Dioxide Level 33 H Anion Gap 5 Blood Urea Nitrogen 20 Creatinine 1.19 Glucose Level 137 # Calcium Level 7.9 L Phosphorus Level 4.3 Magnesium Level 2.0 Albumin 2.6 L Prothrombin Time 14.2 Prothrombin Time Ratio 1.1 INR International Normalized Ratio 1.09 Lactate Dehydrogenase 558 Total Protein 5.6 L Exam/Review of Systems Exam Vitals Vital Signs Date Temp Pulse Resp B/P (MAP) Pulse Ox O2 O2 Flow FiO2 Time Delivery Rate 04/28/19 95 Nasal 07:54 Cannula 04/28/19 4.0 07:54 04/28/19 98.0 72 20 122/71 07:14 (88) 04/28/19 35 05:00 Intake and Output 04/27/19 04/27/19 04/28/19 1515:00 23:00 07:00 IntakeIntake Total 400 ml 200 ml 450 ml OutputOutput Total 100 ml BalanceBalance 400 ml 100 ml 450 ml Results Results 24hrs Laboratory Tests Test 04/28/19 05:59 04/28/19 06:03 04/28/19 09:11 Iron Level 19 L Total Iron Binding Capacity 287 Percent Iron Saturation 7 L White Blood Count 7.4 Red Blood Count 2.65 L Hemoglobin 7.8 L Hematocrit 24.6 L Mean Corpuscular Volume 92.8 Mean Corpuscular Hemoglobin 29.4 Mean Corpuscular Hemoglobin Concent 31.7 L Red Cell Distribution Width 15.5 H Platelet Count 191 Mean Platelet Volume 9.3 Immature Granulocytes % 0.500 H Neutrophils % 74.2 Lymphocytes % 14.2 L Monocytes % 8.9 Eosinophils % 1.9 Basophils % 0.3 Nucleated Red Blood Cells % 0.7 H Immature Granulocytes # 0.040 H Neutrophils # 5.5 Lymphocytes # 1.1 Monocytes # 0.7 Eosinophils # 0.1 Basophils # 0.0 Nucleated Red Blood Cells # 0.1 H Sodium Level 139 Potassium Level 3.6 Chloride Level 101 Carbon Dioxide Level 33 H Anion Gap 5 Blood Urea Nitrogen 20 Creatinine 1.19 Glucose Level 137 # Calcium Level 7.9 L Phosphorus Level 4.3 Magnesium Level 2.0 Albumin 2.6 L Prothrombin Time 14.2 Prothrombin Time Ratio 1.1 INR International Normalized Ratio 1.09 Lactate Dehydrogenase 558 Total Protein 5.6 L Medications Medication Current Medications Aspirin (Halfprin) 81 mg DAILY PO Last administered on 04/24/19 09:09; Admin Dose 81 MG; Start 04/13/19 at 09:00 Atorvastatin Calcium (Lipitor) 20 mg QHS PO Last administered on 04/27/19 21:20; Admin Dose 20 MG; Start 04/12/19 at 21:00 Ondansetron HCl (Zofran Inj) 4 mg Q6H PRN IV NAUSEA AND/OR VOMITING Last administered on 04/15/19 16:27; Admin Dose 4 MG; Start 04/12/19 at 13:00 Acetaminophen (Tylenol Tab) 650 mg Q6H PRN PO PAIN LEVEL 1-3 OR FEVER Last administered on 04/22/19 00:29; Admin Dose 650 MG; Start 04/12/19 at 13:00 Docusate Sodium (Colace) 100 mg Q12H PRN PO CONSTIPATION; Start 04/12/19 at 13:00 Magnesium Hydroxide (Milk Of Mag) 30 ml DAILY PRN PO CONSTIPATION; Start 04/12/19 at 13:00 Pantoprazole (Protonix Tab) 40 mg DAILY@06 PO Last administered on 04/24/19 05:47; Admin Dose 40 MG; Start 04/13/19 at 06:00; Status Hold Apixaban (Eliquis) 5 mg BID PO Last administered on 04/24/19 09:10; Admin Dose 5 MG; Start 04/12/19 at 21:00; Status Hold Metoprolol Tartrate (Lopressor) 5 mg Q2H PRN IV heart rate over 110 Last administered on 04/15/19 09:11; Admin Dose 5 MG; Start 04/13/19 at 09:30 Morphine Sulfate (morphine) 2 mg Q4H PRN IV SEVERE PAIN LEVEL 7-10 Last administered on 04/23/19 23:14; Admin Dose 2 MG; Start 04/13/19 at 23:30 IV Flush (NS 10 ml) 10 ml Q8 PRN IV IV PROTOCOL; Start 04/14/19 at 15:00 Lorazepam (Ativan) 1 mg Q6H PRN IV anxiety Last administered on 04/22/19 23:35; Admin Dose 1 MG; Start 04/14/19 at 15:00 Miscellaneous Information (Pending [facility] Order For Wound Care) This patient urias. .. PRN PRN XX WOUND CARE; Start 04/14/19 at 21:00 Amiodarone HCl (Cordarone) 400 mg TID PO Last administered on 04/17/19 13:10; Admin Dose 400 MG; Start 04/16/19 at 13:00; Status Hold Metoprolol Succinate (Toprol Xl) 100 mg BID PO Last administered on 04/28/19 10:14; Admin Dose 100 MG; Start 04/19/19 at 21:00 Albuterol/ Ipratropium (Duoneb) 3 ml Q6HWA RESP THERAPY HHN Last administered on 04/28/19 07:53; Admin Dose 3 ML; Start 04/20/19 at 20:00 Albuterol/ Ipratropium (Duoneb) 3 ml Q2H RESP THERAPY PRN HHN shortness of breath Last administered on 04/24/19 04:16; Admin Dose 3 ML; Start 04/20/19 at 15:00 Budesonide (Pulmicort (Neb)) 0.5 mg BID RESP THERAPY HHN Last administered on 04/28/19 07:53; Admin Dose 0.5 MG; Start 04/20/19 at 20:00 Silver Sulfadiazine (Thermazene 1% 25 Gm) 1 applic DAILY TOP Last administered on 04/27/19 10:12; Admin Dose 1 APPLIC; Start 04/22/19 at 12:00 Bumetanide (Bumex) 1 mg DAILY PO Last administered on 04/27/19 10:10; Admin Dose 1 MG; Start 04/25/19 at 09:00 Pantoprazole 80 mg/Sodium Chloride 100 ml @ 10 mls/hr Q10H IV Last administered on 04/27/19 21:20; Admin Dose 10 MLS/HR; Start 04/24/19 at 19:30 Digoxin (Digoxin) 0.125 mg DAILY@13 PO Last administered on 04/27/19 13:16; Admin Dose 0.125 MG; Start 04/27/19 at 13:00 ROMAINE PENG Apr 28, 2019 11:02
--- NOTE | 2019-04-28 11:32 | CONS ---
Assessment/Plan Assessment/Plan Assessment/Plan (Daily) 1. Oliguric Acute kidney injury on CKD 2/2 Hemodynamics from CHF and atrial fibrillation RVR , also contributing ATN from sepsis 2. acute hypoxic respiratory failure requiring BIPAP due to Bilateral PNA and CHF 3. sepsis due to Bilateral PNA 4. Acute CHF exacerbation with EF 20% on ECHO, most likely new onset since pt has been denying any H/o CHF 5. New onset afib with RVR- on cardizem gtt 6. H/o HTN 7. H/o Sleep apnea 8. H/o Possible CKD but pt has been denying it.. His Renal Us showed normal echogenicity of kidneys but kidneys are small in size, The right kidney measures 9.5 cm. The left kidney measures 9.2 cm. 9. Moderate Right sided pleural effusion s/p R thoracentesis on 04/28/19- 850cc, removed, Plan: -BUN/Cr improved to 20/1.19, Na 139- other electrolytes stable- , -s/p R thoracentesis on 04/28/19- 850cc, removed, -increase Bumex to 1mg PO BID- . Monitor electrolytes and replace as needed Echo showed EF 20% wiht Moderate MR, moderate to severe TR, Enlarged RV and RVSP 52 Amiodarone 400mg PO TID and metoprolol 100mg PO BID for rate conrol, eliquis for anticoagulation will follow up Consultation Date/Type/Reason Admit Date/Time Apr 12, 2019 at 12:21 Initial Consult Date 04/13/19 Type of Consult NEPHROLOGY Requesting Provider: MARVIN FOX MD Date/Time of Note DATE: 04/28/19 TIME: 11:30 Exam/Review of Systems Exam Vitals Vital Signs Date Temp Pulse Resp B/P (MAP) Pulse Ox O2 O2 Flow FiO2 Time Delivery Rate 04/28/19 95 Nasal 07:54 Cannula 04/28/19 4.0 07:54 04/28/19 98.0 72 20 122/71 07:14 (88) 04/28/19 35 05:00 Intake and Output 04/27/19 04/27/19 04/28/19 1515:00 23:00 07:00 IntakeIntake Total 400 ml 200 ml 450 ml OutputOutput Total 100 ml BalanceBalance 400 ml 100 ml 450 ml Exam Constitutional: alert awake communicative Respiratory: decreased BS+, no wheezing Cardiovascular: regular rate and rhythm, nl pulses Gastrointestinal: soft, non-tender Musculoskeletal: muscle weakness, swelling (1+ pitting edema ) Extremities: normal pulses Neurological: alert awake, communicative, non focal Results Result Diagram: 04/28/19 0603 04/28/19 0603 Results 24hrs Laboratory Tests Test 04/28/19 05:59 04/28/19 06:03 04/28/19 09:11 Iron Level 19 L Total Iron Binding Capacity 287 Percent Iron Saturation 7 L White Blood Count 7.4 Red Blood Count 2.65 L Hemoglobin 7.8 L Hematocrit 24.6 L Mean Corpuscular Volume 92.8 Mean Corpuscular Hemoglobin 29.4 Mean Corpuscular Hemoglobin Concent 31.7 L Red Cell Distribution Width 15.5 H Platelet Count 191 Mean Platelet Volume 9.3 Immature Granulocytes % 0.500 H Neutrophils % 74.2 Lymphocytes % 14.2 L Monocytes % 8.9 Eosinophils % 1.9 Basophils % 0.3 Nucleated Red Blood Cells % 0.7 H Immature Granulocytes # 0.040 H Neutrophils # 5.5 Lymphocytes # 1.1 Monocytes # 0.7 Eosinophils # 0.1 Basophils # 0.0 Nucleated Red Blood Cells # 0.1 H Sodium Level 139 Potassium Level 3.6 Chloride Level 101 Carbon Dioxide Level 33 H Anion Gap 5 Blood Urea Nitrogen 20 Creatinine 1.19 Glucose Level 137 # Calcium Level 7.9 L Phosphorus Level 4.3 Magnesium Level 2.0 Albumin 2.6 L Prothrombin Time 14.2 Prothrombin Time Ratio 1.1 INR International Normalized Ratio 1.09 Lactate Dehydrogenase 558 Total Protein 5.6 L Medications Medication Current Medications Aspirin (Halfprin) 81 mg DAILY PO Last administered on 04/24/19at 09:09; Admin Dose 81 MG; Start 04/13/19 at 09:00 Atorvastatin Calcium (Lipitor) 20 mg QHS PO Last administered on 04/27/19at 21:20; Admin Dose 20 MG; Start 04/12/19 at 21:00 Ondansetron HCl (Zofran Inj) 4 mg Q6H PRN IV NAUSEA AND/OR VOMITING Last administered on 04/15/19at 16:27; Admin Dose 4 MG; Start 04/12/19 at 13:00 Acetaminophen (Tylenol Tab) 650 mg Q6H PRN PO PAIN LEVEL 1-3 OR FEVER Last administered on 04/22/19 00:29; Admin Dose 650 MG; Start 04/12/19 at 13:00 Docusate Sodium (Colace) 100 mg Q12H PRN PO CONSTIPATION; Start 04/12/19 at 13:00 Magnesium Hydroxide (Milk Of Mag) 30 ml DAILY PRN PO CONSTIPATION; Start 04/12/19 at 13:00 Pantoprazole (Protonix Tab) 40 mg DAILY@06 PO Last administered on 04/24/19 05:47; Admin Dose 40 MG; Start 04/13/19 at 06:00; Status Hold Apixaban (Eliquis) 5 mg BID PO Last administered on 04/24/19 09:10; Admin Dose 5 MG; Start 04/12/19 at 21:00; Status Hold Metoprolol Tartrate (Lopressor) 5 mg Q2H PRN IV heart rate over 110 Last administered on 04/15/19 09:11; Admin Dose 5 MG; Start 04/13/19 at 09:30 Morphine Sulfate (morphine) 2 mg Q4H PRN IV SEVERE PAIN LEVEL 7-10 Last adminis tered on 04/23/19 23:14; Admin Dose 2 MG; Start 04/13/19 at 23:30 IV Flush (NS 10 ml) 10 ml Q8 PRN IV IV PROTOCOL; Start 04/14/19 at 15:00 Lorazepam (Ativan) 1 mg Q6H PRN IV anxiety Last administered on 04/22/19 23:35; Admin Dose 1 MG; Start 04/14/19 at 15:00 Miscellaneous Information (Pending [facility] Order For Wound Care) This patient urias... PRN PRN XX WOUND CARE; Start 04/14/19 at 21:00 Amiodarone HCl (Cordarone) 400 mg TID PO Last administered on 04/17/19 13:10; Admin Dose 400 MG; Start 04/16/19 at 13:00; Status Hold Metoprolol Succinate (Toprol Xl) 100 mg BID PO Last administered on 04/28/19 10:14; Admin Dose 100 MG; Start 04/19/19 at 21:00 Albuterol/ Ipratropium (Duoneb) 3 ml Q6HWA RESP THERAPY HHN Last administered on 04/28/19 07:53; Admin Dose 3 ML; Start 04/20/19 at 20:00 Albuterol/ Ipratropium (Duoneb) 3 ml Q2H RESP THERAPY PRN HHN shortness of breath Last administered on 04/24/19 04:16; Admin Dose 3 ML; Start 04/20/19 at 15:00 Budesonide (Pulmicort (Neb)) 0.5 mg BID RESP THERAPY HHN Last administered on 04/28/19 07:53; Admin Dose 0.5 MG; Start 04/20/19 at 20:00 Silver Sulfadiazine (Thermazene 1% 25 Gm) 1 applic DAILY TOP Last administered on 04/27/19 10:12; Admin Dose 1 APPLIC; Start 04/22/19 at 12:00 Bumetanide (Bumex) 1 mg DAILY PO Last administered on 04/27/19 10:10; Admin Dose 1 MG; Start 04/25/19 at 09:00 Pantoprazole 80 mg/Sodium Chloride 100 ml @ 10 mls/hr Q10H IV Last administered on 04/27/19 21:20; Admin Dose 10 MLS/HR; Start 04/24/19 at 19:30 Digoxin (Digoxin) 0.125 mg DAILY@13 PO Last administered on 04/27/19 13:16; Admin Dose 0.125 MG; Start 04/27/19 at 13:00 RYAN VICENTE MD Apr 28, 2019 11:32
[2019-04-28] MEDS: SILVER SULFADIAZINE 1% 25 GM CR TOP SCH (13:20)
[2019-04-28] MEDS: DIGOXIN 0.125 MG TAB PO SCH (13:20)
[2019-04-28] MEDS: SOD FERRIC GLUC COMPLX 125 MG in SOD CHLORIDE 0.9% 100 ML IVPB SCH (16:56)
--- NOTE | 2019-04-28 18:13 | CONS ---
Assessment/Plan Cardiology NYHA: IV Heart Failure Type: Acute Heart Failure Type: Both Assessment/Plan Hospital Course (Demo Recall) Atrial fibrillation Acute decompensated systolic congestive heart failure, improved Cardia myopathy Mitral and tricuspid valve regurgitation GI bleed Heart rate trend overall remained stable We will restart ARB at a lower dose given cardia myopathy and valvular disorders Diuretics as per nephrology Titrate beta-elsa as needed for heart rate control Currently off anticoagulation secondary to GI bleed Consultation Date/Type/Reason Admit Date/Time Apr 12, 2019 at 12:21 Initial Consult Date 04/25/19 Type of Consult Cardiology Requesting Provider: MARVIN FOX MD Date/Time of Note DATE: 04/28/19 TIME: 18:12 24 HR Interval Summary Free Text/Dictation Complains of fatigue, denies chest pain currently or shortness of breath Exam/Review of Systems Vital Signs Vitals Vital Signs Date Temp Pulse Resp B/P (MAP) Pulse Ox O2 O2 Flow FiO2 Time Delivery Rate 04/28/19 98.0 64 20 101/69 96 Nasal 15:40 (80) Cannula 04/28/19 4.0 14:55 04/28/19 35 05:00 Intake and Output 04/27/19 04/27/19 04/28/19 1515:00 23:00 07:00 IntakeIntake Total 400 ml 200 ml 450 ml OutputOutput Total 100 ml BalanceBalance 400 ml 100 ml 450 ml Exam Constitutional: alert, oriented (No apparent distress, no dyspnea with speaking) Head: normocephalic Respiratory: other (Coarse breath sounds bilaterally, no wheezing) Cardiovascular: irregular rhythm (S1-S2 heard) Gastrointestinal: soft, non-tender, bowel sounds Extremities: edema Labs Result Diagram: 04/28/19 0603 04/28/19 0603 Results 24hrs Laboratory Tests Test 04/28/19 05:59 04/28/19 06:03 04/28/19 09:11 04/28/19 09:51 Iron Level 19 L Total Iron Binding 287 Capacity Percent Iron 7 L Saturation Ferritin 8.6 L White Blood Count 7.4 Red Blood Count 2.65 L Hemoglobin 7.8 L Hematocrit 24.6 L Mean Corpuscular 92.8 Volume Mean Corpuscular 29.4 Hemoglobin Mean Corpuscular 31.7 L Hemoglobin Concent Red Cell 15.5 H Distribution Width Platelet Count 191 Mean Platelet 9.3 Volume Immature 0.500 H Granulocytes % Neutrophils % 74.2 Lymphocytes % 14.2 L Monocytes % 8.9 Eosinophils % 1.9 Basophils % 0.3 Nucleated Red 0.7 H Blood Cells % Immature 0.040 H Granulocytes # Neutrophils # 5.5 Lymphocytes # 1.1 Monocytes # 0.7 Eosinophils # 0.1 Basophils # 0.0 Nucleated Red 0.1 H Blood Cells # Sodium Level 139 Potassium Level 3.6 Chloride Level 101 Carbon Dioxide 33 H Level Anion Gap 5 Blood Urea 20 Nitrogen Creatinine 1.19 Glucose Level 137 # Calcium Level 7.9 L Phosphorus Level 4.3 Magnesium Level 2.0 Albumin 2.6 L Prothrombin Time 14.2 Prothrombin Time 1.1 Ratio INR International 1.09 Normalized Ratio Lactate 558 Dehydrogenase Total Protein 5.6 L Carcinoembryonic 0.9 Antigen Test 04/28/19 10:41 Pathologist YES Review (Hematology ) Body Fluid Type THORACENTESIS FLUI D Body Fluid Volume 850.0 Body Fluid Color YELLOW Body Fluid SLIGHTLY CLOUDY Appearance Body Fluid WBC 185 Body Fluid RBC 3000 (Auto) Body Fluid 6.5 Polynuclear WBCs (%) Body Fluid 93.5 Mononuclear Cells % Auto Body Fluid Glucose 114 Body Fluid Total < 2.0 Protein Body Fluid 206 Lactate Dehydrogen ase Medications Medications Current Medications Aspirin (Halfprin) 81 mg DAILY PO Last administered on 04/24/19at 09:09; Admin Dose 81 MG; Start 04/13/19 at 09:00; Status Hold Atorvastatin Calcium (Lipitor) 20 mg QHS PO Last administered on 04/27/19at 21:20; Admin Dose 20 MG; Start 04/12/19 at 21:00 Ondansetron HCl (Zofran Inj) 4 mg Q6H PRN IV NAUSEA AND/OR VOMITING Last administered on 04/15/19at 16:27; Admin Dose 4 MG; Start 04/12/19 at 13:00 Acetaminophen (Tylenol Tab) 650 mg Q6H PRN PO PAIN LEVEL 1-3 OR FEVER Last administered on 04/22/19at 00:29; Admin Dose 650 MG; Start 04/12/19 at 13:00 Docusate Sodium (Colace) 100 mg Q12H PRN PO CONSTIPATION; Start 04/12/19 at 13:00 Magnesium Hydroxide (Milk Of Mag) 30 ml DAILY PRN PO CONSTIPATION; Start 04/12/19 at 13:00 Apixaban (Eliquis) 5 mg BID PO Last administered on 04/24/19 09:10; Admin Dose 5 MG; Start 04/12/19 at 21:00; Status Hold Metoprolol Tartrate (Lopressor) 5 mg Q2H PRN IV heart rate over 110 Last administered on 04/15/19 09:11; Admin Dose 5 MG; Start 04/13/19 at 09:30 Morphine Sulfate (morphine) 2 mg Q4H PRN IV SEVERE PAIN LEVEL 7-10 Last administered on 04/23/19 23:14; Admin Dose 2 MG; Start 04/13/19 at 23:30 IV Flush (NS 10 ml) 10 ml Q8 PRN IV IV PROTOCOL; Start 04/14/19 at 15:00 Lorazepam (Ativan) 1 mg Q6H PRN IV anxiety Last administered on 04/22/19 23:35; Admin Dose 1 MG; Start 04/14/19 at 15:00 Miscellaneous Information (Pending [facility] Order For Wound Care) This patient urias... PRN PRN XX WOUND CARE; Start 04/14/19 at 21:00 Amiodarone HCl (Cordarone) 400 mg TID PO Last administered on 04/17/19 13:10; Admin Dose 400 MG; Start 04/16/19 at 13:00; Status Hold Metoprolol Succinate (Toprol Xl) 100 mg BID PO Last administered on 04/28/19 10:14; Admin Dose 100 MG; Start 04/19/19 at 21:00 Albuterol/ Ipratropium (Duoneb) 3 ml Q6HWA RESP THERAPY HHN Last administered on 04/28/19 14:53; Admin Dose 3 ML; Start 04/20/19 at 20:00 Albuterol/ Ipratropium (Duoneb) 3 ml Q2H RESP THERAPY PRN HHN shortness of breath Last administered on 04/24/19 04:16; Admin Dose 3 ML; Start 04/20/19 at 15:00 Budesonide (Pulmicort (Neb)) 0.5 mg BID RESP THERAPY HHN Last administered on 04/28/19 07:53; Admin Dose 0.5 MG; Start 04/20/19 at 20:00 Silver Sulfadiazine (Thermazene 1% 25 Gm) 1 applic DAILY TOP Last administered on 04/28/19at 13:20; Admin Dose 1 APPLIC; Start 04/22/19 at 12:00 Digoxin (Digoxin) 0.125 mg DAILY@13 PO Last administered on 04/28/19at 13:20; Admin Dose 0.125 MG; Start 04/27/19 at 13:00 Bumetanide (Bumex) 1 mg BID PO ; Start 04/28/19 at 21:00 Pantoprazole (Protonix Tab) 40 mg BID PO ; Start 04/28/19 at 21:00 Ferric Sodium Gluconate Complex 125 mg/Sodium Chloride 100 ml @ 100 mls/hr DAILY@1300 IVPB Last administered on 04/28/19at 16:56; Admin Dose 100 MLS/HR; Start 04/28/19 at 15:00; Stop 04/30/19 at 13:59 Christian Araujo DO Apr 28, 2019 18:13
[2019-04-28] MEDS: BUMETANIDE 1 MG TAB PO SCH (20:10)
[2019-04-28] MEDS: PANTOPRAZOLE (EC) 40 MG TAB PO SCH (20:11)
[2019-04-28] MEDS: ATORVASTATIN 20 MG TAB PO SCH (20:11)
[2019-04-28] MEDS: GUAIFENESIN/DM 5ML CUP PO PRN (21:58)
[2019-04-29] VITALS (7 sets, daily range): BP systolic 95–120; BP diastolic 67–81; PULSE 72–93; RESP 16–20
[2019-04-29] MEDS: GUAIFENESIN/DM 5ML CUP PO PRN (04:15)
[2019-04-29] MEDS: BUMETANIDE 1 MG TAB PO SCH ×2 (08:21→22:58)
[2019-04-29] MEDS: PANTOPRAZOLE (EC) 40 MG TAB PO SCH ×2 (08:21→21:18)
[2019-04-29] MEDS: LOSARTAN 25 MG TAB PO SCH (08:21)
[2019-04-29] MEDS: METOPROLOL (XL) 100 MG TAB PO SCH ×2 (08:22→21:19)
[2019-04-29] MEDS: ALBUTEROL/IPRATROPIUM (NEB) 3 ML AMP HHN SCH ×3 (08:41→22:44)
[2019-04-29] MEDS: BUDESONIDE (NEB) 0.5MG/2ML AMP HHN SCH ×2 (08:41→22:44)
[2019-04-29] MEDS ORDERED: POTASSIUM CHLORIDE (SR) 20 MEQ TAB PO STA (08:52)
[2019-04-29] MEDS: SILVER SULFADIAZINE 1% 25 GM CR TOP SCH (09:56)
--- NOTE | 2019-04-29 10:19 | PN ---
Date/Time of Note Date/Time of Note DATE: 04/29/19 TIME: 10:15 Assessment/Plan VTE Prophylaxis Risk score (from Nsg)>0 risk: 2 SCD applied (from Nsg): Yes Pharmacological prophylaxis: NA/contraindicated Pharm contraindication: bleeding Lines/Catheters IV Catheter Type (from Nrsg): PICC Line Central line still needed: Yes Urinary Cath still in place: No Assessment/Plan Assessment/Plan 1. Ulcerations in cecum - path report negative for malignancy. Will touch base with GI if repeat colonoscopy need or if okay to restart Eliquis - most likely etiology of acute GI bleeding - biopsies performed during colonoscopy 04/27 - CT scan noted with thickening of cecum. Results discussed with patient 2. Acute GI bleeding- resolved - hgb trending upward - colonoscopy performed 04/27 - GI on board and appreciate consultation. will touch base if okay to restart anticoagulation 3. Acute hypoxic respiratory failure- stable - Continued on 4L O2 and no respiratory distress noted - Pulm consultation appreciated. - Nebs PRN 4. Acute systolic congestive heart failure- stable - BNP noted - Cardiology on board and appreciate recommendations - Nephrology on board for management of diuretics. Will continue on Bumex - monitor I/O and daily weights - ECHO results noted with low EF 5. New onset afib with RVR- stable - doing well on digoxin - continue on PO amiodarone - on BB - Cardiology consultation appreciated - Eliquis on hold given GI bleed 6. DANYA- resolving - Nephrology consultation appreciated - US results noted - renally dose medications 7. Bilateral pneumonia- resolved - seen on CXR - ID consultation appreciated and d/c antibiotics. will monitor off antibiotics per ID recs - continue Neb tx PRN 8. Elevated trop - most likely type 2 demand - will need stress test when stable either inpatient or outpatient and possible PCI in future when renal function improves - no chest pain noted 9. Sleep apnea - on BIPAP qhs 10. HTN - continue home medications and adjust as needed 11. Pleural effusion s/p thoracentesis 04/28 - doing well post thora after 850 cc removed 12. Disposition - Will touch base with GI on plan of care given no malignancy found on bx. If okay, will restart Eliquis - CM on board for SNF placement Result Diagram: 04/29/19 0643 04/29/19 0643 Results 24hrs Laboratory Tests Test 04/28/19 10:41 04/29/19 05:50 04/29/19 06:43 Pathologist YES Review (Hematology) Body Fluid Type THORACENTESIS FLUID Body Fluid Volume 850.0 Body Fluid Color YELLOW Body Fluid Appearance SLIGHTLY CLOUDY Body Fluid WBC 185 Body Fluid RBC (Auto) 3000 Body Fluid Polynuclear 6.5 WBCs (%) Body Fluid Mononuclear 93.5 Cells % Auto Body Fluid Glucose 114 Body Fluid Total Protein < 2.0 Body Fluid 206 Lactate Dehydrogenase Lab Scanned Report BLOOD TRANSFUSION White Blood Count 9.1 # Red Blood Count 2.91 L Hemoglobin 8.3 L Hematocrit 27.0 L Mean Corpuscular Volume 92.8 Mean Corpuscular 28.5 L Hemoglobin Mean Corpuscular 30.7 L Hemoglobin Concent Red Cell Distribution 15.5 H Width Platelet Count 219 Mean Platelet Volume 9.1 Immature Granulocytes % 0.500 H Neutrophils % 76.3 Lymphocytes % 11.9 L Monocytes % 8.9 Eosinophils % 2.1 Basophils % 0.3 Nucleated Red Blood Cells 0.5 H % Immature Granulocytes # 0.050 H Neutrophils # 7.0 Lymphocytes # 1.1 Monocytes # 0.8 Eosinophils # 0.2 Basophils # 0.0 Nucleated Red Blood Cells 0.1 H # Sodium Level 141 Potassium Level 3.4 L Chloride Level 103 Carbon Dioxide Level 34 H Anion Gap 4 L Blood Urea Nitrogen 20 Creatinine 1.19 Glucose Level 112 Calcium Level 8.0 L Phosphorus Level 3.9 Magnesium Level 1.8 Albumin 3.2 L Subjective 24 Hr Interval Summary Free Text/Dictation Patient states he's feeling better following thoracentesis and denies any further GI bleeding. No acute overnight events. Exam/Review of Systems Exam Vitals Vital Signs Date Temp Pulse Resp B/P (MAP) Pulse Ox O2 O2 Flow FiO2 Time Delivery Rate 04/29/19 5.0 08:44 04/29/19 82 20 99 Nasal 08:44 Cannula 04/29/19 98.7 101/67 07:41 (78) 04/29/19 35 03:30 Intake and Output 04/28/19 04/28/19 04/29/19 1515:00 23:00 07:00 IntakeIntake Total 900 ml 740 ml 100 ml OutputOutput Total 100 ml 200 ml BalanceBalance 800 ml 740 ml -100 ml Exam General: Patient is laying in bed and answers questions appropriately Neck: Supple Respiratory: Diminished bilaterally, no wheezing Cardiovascular: regular rate and rhythm, no obvious murmurs Gastrointestinal: soft, non-tender to palpation, bowel sounds heard. Ext: Moves all extremities spontaneously Skin: No new skin lesions Results Results 24hrs Laboratory Tests Test 04/28/19 10:41 04/29/19 05:50 04/29/19 06:43 Pathologist YES Review (Hematology) Body Fluid Type THORACENTESIS FLUID Body Fluid Volume 850.0 Body Fluid Color YELLOW Body Fluid Appearance SLIGHTLY CLOUDY Body Fluid WBC 185 Body Fluid RBC (Auto) 3000 Body Fluid Polynuclear 6.5 WBCs (%) Body Fluid Mononuclear 93.5 Cells % Auto Body Fluid Glucose 114 Body Fluid Total Protein < 2.0 Body Fluid 206 Lactate Dehydrogenase Lab Scanned Report BLOOD TRANSFUSION White Blood Count 9.1 # Red Blood Count 2.91 L Hemoglobin 8.3 L Hematocrit 27.0 L Mean Corpuscular Volume 92.8 Mean Corpuscular 28.5 L Hemoglobin Mean Corpuscular 30.7 L Hemoglobin Concent Red Cell Distribution 15.5 H Width Platelet Count 219 Mean Platelet Volume 9.1 Immature Granulocytes % 0.500 H Neutrophils % 76.3 Lymphocytes % 11.9 L Monocytes % 8.9 Eosinophils % 2.1 Basophils % 0.3 Nucleated Red Blood Cells 0.5 H % Immature Granulocytes # 0.050 H Neutrophils # 7.0 Lymphocytes # 1.1 Monocytes # 0.8 Eosinophils # 0.2 Basophils # 0.0 Nucleated Red Blood Cells 0.1 H # Sodium Level 141 Potassium Level 3.4 L Chloride Level 103 Carbon Dioxide Level 34 H Anion Gap 4 L Blood Urea Nitrogen 20 Creatinine 1.19 Glucose Level 112 Calcium Level 8.0 L Phosphorus Level 3.9 Magnesium Level 1.8 Albumin 3.2 L Medications Medication Current Medications Atorvastatin Calcium (Lipitor) 20 mg QHS PO Last administered on 04/28/19at 20:11; Admin Dose 20 MG; Start 04/12/19 at 21:00 Ondansetron HCl (Zofran Inj) 4 mg Q6H PRN IV NAUSEA AND/OR VOMITING Last administered on 04/15/19at 16:27; Admin Dose 4 MG; Start 04/12/19 at 13:00 Acetaminophen (Tylenol Tab) 650 mg Q6H PRN PO PAIN LEVEL 1-3 OR FEVER Last administered on 04/22/19at 00:29; Admin Dose 650 MG; Start 04/12/19 at 13:00 Docusate Sodium (Colace) 100 mg Q12H PRN PO CONSTIPATION; Start 04/12/19 at 13:00 Magnesium Hydroxide (Milk Of Mag) 30 ml DAILY PRN PO CONSTIPATION; Start 04/12/19 at 13:00 Metoprolol Tartrate (Lopressor) 5 mg Q2H PRN IV heart rate over 110 Last administered on 04/15/19 09:11; Admin Dose 5 MG; Start 04/13/19 at 09:30 Morphine Sulfate (morphine) 2 mg Q4H PRN IV SEVERE PAIN LEVEL 7-10 Last administered on 04/23/19 23:14; Admin Dose 2 MG; Start 04/13/19 at 23:30 IV Flush (NS 10 ml) 10 ml Q8 PRN IV IV PROTOCOL; Start 04/14/19 at 15:00 Lorazepam (Ativan) 1 mg Q6H PRN IV anxiety Last administered on 04/22/19 23:35; Admin Dose 1 MG; Start 04/14/19 at 15:00 [facility] This patient urias... PRN PRN XX WOUND CARE; Start 04/14/19 at 21:00 Amiodarone HCl (Cordarone) 400 mg TID PO Last administered on 04/17/19 13:10; Admin Dose 400 MG; Start 04/16/19 at 13:00; Status Hold Metoprolol Succinate (Toprol Xl) 100 mg BID PO Last administered on 04/29/19 08:22; Admin Dose 100 MG; Start 04/19/19 at 21:00 Albuterol/ Ipratropium (Duoneb) 3 ml Q6HWA RESP THERAPY HHN Last administered on 04/29/19 08:41; Admin Dose 3 ML; Start 04/20/19 at 20:00 Albuterol/ Ipratropium (Duoneb) 3 ml Q2H RESP THERAPY PRN HHN shortness of breath Last administered on 04/24/19 04:16; Admin Dose 3 ML; Start 04/20/19 at 15:00 Budesonide (Pulmicort (Neb)) 0.5 mg BID RESP THERAPY HHN Last administered on 04/29/19 08:41; Admin Dose 0.5 MG; Start 04/20/19 at 20:00 Silver Sulfadiazine (Thermazene 1% 25 Gm) 1 applic DAILY TOP Last administered on 04/29/19 09:56; Admin Dose 1 APPLIC; Start 04/22/19 at 12:00 Digoxin (Digoxin) 0.125 mg DAILY@13 PO Last administered on 04/28/19 13:20; Admin Dose 0.125 MG; Start 04/27/19 at 13:00 Bumetanide (Bumex) 1 mg BID PO Last administered on 04/29/19 08:21; Admin Dose 1 MG; Start 04/28/19 at 21:00 Pantoprazole (Protonix Tab) 40 mg BID PO Last administered on 04/29/19 08:21; Admin Dose 40 MG; Start 04/28/19 at 21:00 Ferric Sodium Gluconate Complex 125 mg/Sodium Chloride 100 ml @ 100 mls/hr DAILY@1300 IVPB Last administered on 04/28/19 16:56; Admin Dose 100 MLS/HR; Start 04/28/19 at 15:00; Stop 04/30/19 at 13:59 Losartan Potassium (Cozaar) 25 mg DAILY PO Last administered on 04/29/19 08:21; Admin Dose 25 MG; Start 04/29/19 at 09:00 Guaifenesin/ Dextromethorphan (Robitussin Dm Liquid Cup) 5 ml Q4H PRN PO coughing Last administered on 04/29/19 04:15; Admin Dose 5 ML; Start 04/28/19 at 20:00 MARVIN FOX MD Apr 29, 2019 10:19
[2019-04-29] MEDS: SOD FERRIC GLUC COMPLX 125 MG in SOD CHLORIDE 0.9% 100 ML IVPB SCH (12:18)
[2019-04-29] MEDS: DIGOXIN 0.125 MG TAB PO SCH (12:20)
--- NOTE | 2019-04-29 12:30 | CONS ---
Consult Date/Type/Reason Admit Date/Time Apr 12, 2019 at 12:21 Initial Consult Date 04/13/19 Type of Consult Pulmonary Requesting Provider: MARVIN FOX MD Date/Time of Note DATE: 04/29/19 TIME: 12:29 Subjective Patient comfortable this morning no respiratory distress Objective Vital Signs Date Temp Pulse Resp B/P (MAP) Pulse Ox O2 O2 Flow FiO2 Time Delivery Rate 04/29/19 5.0 08:44 04/29/19 82 20 99 Nasal 08:44 Cannula 04/29/19 98.7 101/67 07:41 (78) 04/29/19 35 03:30 Intake and Output 04/28/19 04/28/19 04/29/19 1515:00 23:00 07:00 IntakeIntake Total 900 ml 740 ml 100 ml OutputOutput Total 100 ml 200 ml BalanceBalance 800 ml 740 ml -100 ml Exam GENERAL: Well-nourished well-developed gentleman VITAL SIGNS: per chart NECK: Supple. No JVD or lymphadenopathy. CARDIAC EXAM: S1, S2. No added sounds or murmurs. CHEST: clear bilaterally, No added sounds, rales or wheezes ABDOMEN: Soft, nontender. No guarding or rebound. EXTREMITIES: No cyanosis, clubbing or edema. NEUROLOGIC: Generalized weakness. No focal deficits. Vent Setting Fraction of Inspired Oxygen pe: 44 Results/Medications Result Diagram: 04/29/19 0643 04/29/19 0643 Results 24 hrs Laboratory Tests Test 04/29/19 05:50 04/29/19 06:43 Lab Scanned Report BLOOD TRANSFUSION White Blood Count 9.1 # Red Blood Count 2.91 L Hemoglobin 8.3 L Hematocrit 27.0 L Mean Corpuscular Volume 92.8 Mean Corpuscular Hemoglobin 28.5 L Mean Corpuscular Hemoglobin Concent 30.7 L Red Cell Distribution Width 15.5 H Platelet Count 219 Mean Platelet Volume 9.1 Immature Granulocytes % 0.500 H Neutrophils % 76.3 Lymphocytes % 11.9 L Monocytes % 8.9 Eosinophils % 2.1 Basophils % 0.3 Nucleated Red Blood Cells % 0.5 H Immature Granulocytes # 0.050 H Neutrophils # 7.0 Lymphocytes # 1.1 Monocytes # 0.8 Eosinophils # 0.2 Basophils # 0.0 Nucleated Red Blood Cells # 0.1 H Sodium Level 141 Potassium Level 3.4 L Chloride Level 103 Carbon Dioxide Level 34 H Anion Gap 4 L Blood Urea Nitrogen 20 Creatinine 1.19 Glucose Level 112 Calcium Level 8.0 L Phosphorus Level 3.9 Magnesium Level 1.8 Albumin 3.2 L Medications Current Medications Atorvastatin Calcium (Lipitor) 20 mg QHS PO Last administered on 04/28/19 20:11; Admin Dose 20 MG; Start 04/12/19 at 21:00 Ondansetron HCl (Zofran Inj) 4 mg Q6H PRN IV NAUSEA AND/OR VOMITING Last administered on 04/15/19 16:27; Admin Dose 4 MG; Start 04/12/19 at 13:00 Acetaminophen (Tylenol Tab) 650 mg Q6H PRN PO PAIN LEVEL 1-3 OR FEVER Last administered on 04/22/19 00:29; Admin Dose 650 MG; Start 04/12/19 at 13:00 Docusate Sodium (Colace) 100 mg Q12H PRN PO CONSTIPATION; Start 04/12/19 at 13:00 Magnesium Hydroxide (Milk Of Mag) 30 ml DAILY PRN PO CONSTIPATION; Start 04/12/19 at 13:00 Metoprolol Tartrate (Lopressor) 5 mg Q2H PRN IV heart rate over 110 Last administered on 04/15/19 09:11; Admin Dose 5 MG; Start 04/13/19 at 09:30 Morphine Sulfate (morphine) 2 mg Q4H PRN IV SEVERE PAIN LEVEL 7-10 Last administered on 04/23/19 23:14; Admin Dose 2 MG; Start 04/13/19 at 23:30 IV Flush (NS 10 ml) 10 ml Q8 PRN IV IV PROTOCOL; Start 04/14/19 at 15:00 Lorazepam (Ativan) 1 mg Q6H PRN IV anxiety Last administered on 04/22/19 23:35; Admin Dose 1 MG; Start 04/14/19 at 15:00 Miscellaneous Information (Pending [facility] Order For Wound Care) This patient urias... PRN PRN XX WOUND CARE; Start 04/14/19 at 21:00 Amiodarone HCl (Cordarone) 400 mg TID PO Last administered on 04/17/19 13:10; Admin Dose 400 MG; Start 04/16/19 at 13:00; Status Hold Metoprolol Succinate (Toprol Xl) 100 mg BID PO Last administered on 04/29/19 08:22; Admin Dose 100 MG; Start 04/19/19 at 21:00 Albuterol/ Ipratropium (Duoneb) 3 ml Q6HWA RESP THERAPY HHN Last administered on 04/29/19 08:41; Admin Dose 3 ML; Start 04/20/19 at 20:00 Albuterol/ Ipratropium (Duoneb) 3 ml Q2H RESP THERAPY PRN HHN shortness of breath Last administered on 04/24/19 04:16; Admin Dose 3 ML; Start 04/20/19 at 15:00 Budesonide (Pulmicort (Neb)) 0.5 mg BID RESP THERAPY HHN Last administered on 04/29/19 08:41; Admin Dose 0.5 MG; Start 04/20/19 at 20:00 Silver Sulfadiazine (Thermazene 1% 25 Gm) 1 applic DAILY TOP Last administered on 04/29/19 09:56; Admin Dose 1 APPLIC; Start 04/22/19 at 12:00 Digoxin (Digoxin) 0.125 mg DAILY@13 PO Last administered on 04/29/19 12:20; Admin Dose 0.125 MG; Start 04/27/19 at 13:00 Bumetanide (Bumex) 1 mg BID PO Last administered on 04/29/19 08:21; Admin Dose 1 MG; Start 04/28/19 at 21:00 Pantoprazole (Protonix Tab) 40 mg BID PO Last administered on 04/29/19 08:21; Admin Dose 40 MG; Start 04/28/19 at 21:00 Ferric Sodium Gluconate Complex 125 mg/Sodium Chloride 100 ml @ 100 mls/hr DAILY@1300 IVPB Last administered on 04/29/19 12:18; Admin Dose 100 MLS/HR; Start 04/28/19 at 15:00; Stop 04/30/19 at 13:59 Losartan Potassium (Cozaar) 25 mg DAILY PO Last administered on 04/29/19 08:21; Admin Dose 25 MG; Start 04/29/19 at 09:00 Guaifenesin/ Dextromethorphan (Robitussin Dm Liquid Cup) 5 ml Q4H PRN PO coughing Last administered on 8/9/19at 04:15; Admin Dose 5 ML; Start 04/28/19 at 20:00 Assessment/Plan Hospital Course (Demo Recall) IMP: 1. ADHF 2. HFrEF 3. ARF--likely cardiorenal 4. Afib with RVR 5. Ischemic Hepatopathy 2/2 #1 6. Hypoxemic Resp Failure 2/2 #1 7. Recent GI bleed RECS: Supplemental O2 as needed Resumption of anticoagulation and discharge planning to [facility] facility dc planning OMER HANSON MD, [facility] Apr 29, 2019 12:30
--- NOTE | 2019-04-29 13:03 | CONS ---
Assessment/Plan Assessment/Plan Assessment/Plan (Daily) 1. Oliguric Acute kidney injury on CKD 2/2 Hemodynamics from CHF and atrial fibrillation RVR , also contributing ATN from sepsis 2. acute hypoxic respiratory failure requiring BIPAP due to Bilateral PNA and CHF 3. sepsis due to Bilateral PNA 4. Acute CHF exacerbation with EF 20% on ECHO, most likely new onset since pt has been denying any H/o CHF 5. New onset afib with RVR- on cardizem gtt 6. H/o HTN 7. H/o Sleep apnea 8. H/o Possible CKD but pt has been denying it.. His Renal Us showed normal echogenicity of kidneys but kidneys are small in size, The right kidney measures 9.5 cm. The left kidney measures 9.2 cm. 9. Moderate Right sided pleural effusion s/p R thoracentesis on 04/28/19- 850cc, removed, Plan: -BUN/Cr improved to 20/1.19, Na 139, K 3.4- replaced for today -s/p R thoracentesis on 04/28/19- 850cc, removed, -increase Bumex to 1mg PO BID- . Monitor electrolytes and replace as needed Echo showed EF 20% wiht Moderate MR, moderate to severe TR, Enlarged RV and RVSP 52 Amiodarone 400mg PO TID and metoprolol 100mg PO BID for rate conrol, eliquis for anticoagulation will follow up Consultation Date/Type/Reason Admit Date/Time Apr 12, 2019 at 12:21 Initial Consult Date 04/13/19 Type of Consult NEPHROLOGY Requesting Provider: MARVIN FOX MD Date/Time of Note DATE: 04/29/19 TIME: 13:03 Exam/Review of Systems Exam Vitals Vital Signs Date Temp Pulse Resp B/P (MAP) Pulse Ox O2 O2 Flow FiO2 Time Delivery Rate 04/29/19 5.0 08:44 04/29/19 82 20 99 Nasal 08:44 Cannula 04/29/19 98.7 101/67 07:41 (78) 04/29/19 35 03:30 Intake and Output 04/28/19 04/28/19 04/29/19 1414:59 22:59 06:59 IntakeIntake Total 900 ml 540 ml 300 ml OutputOutput Total 100 ml 200 ml BalanceBalance 800 ml 540 ml 100 ml Exam Constitutional: alert awake communicative Respiratory: decreased BS+, no wheezing Cardiovascular: regular rate and rhythm, nl pulses Gastrointestinal: soft, non-tender Musculoskeletal: muscle weakness, swelling (1+ pitting edema ) Extremities: normal pulses Neurological: alert awake, communicative, non focal Results Result Diagram: 04/29/19 0643 04/29/19 0643 Results 24hrs Laboratory Tests Test 04/29/19 05:50 04/29/19 06:43 Lab Scanned Report BLOOD TRANSFUSION White Blood Count 9.1 # Red Blood Count 2.91 L Hemoglobin 8.3 L Hematocrit 27.0 L Mean Corpuscular Volume 92.8 Mean Corpuscular Hemoglobin 28.5 L Mean Corpuscular Hemoglobin Concent 30.7 L Red Cell Distribution Width 15.5 H Platelet Count 219 Mean Platelet Volume 9.1 Immature Granulocytes % 0.500 H Neutrophils % 76.3 Lymphocytes % 11.9 L Monocytes % 8.9 Eosinophils % 2.1 Basophils % 0.3 Nucleated Red Blood Cells % 0.5 H Immature Granulocytes # 0.050 H Neutrophils # 7.0 Lymphocytes # 1.1 Monocytes # 0.8 Eosinophils # 0.2 Basophils # 0.0 Nucleated Red Blood Cells # 0.1 H Sodium Level 141 Potassium Level 3.4 L Chloride Level 103 Carbon Dioxide Level 34 H Anion Gap 4 L Blood Urea Nitrogen 20 Creatinine 1.19 Glucose Level 112 Calcium Level 8.0 L Phosphorus Level 3.9 Magnesium Level 1.8 Albumin 3.2 L Medications Medication Current Medications Atorvastatin Calcium (Lipitor) 20 mg QHS PO Last administered on 04/28/19at 20:11; Admin Dose 20 MG; Start 04/12/19 at 21:00 Ondansetron HCl (Zofran Inj) 4 mg Q6H PRN IV NAUSEA AND/OR VOMITING Last administered on 04/15/19at 16:27; Admin Dose 4 MG; Start 04/12/19 at 13:00 Acetaminophen (Tylenol Tab) 650 mg Q6H PRN PO PAIN LEVEL 1-3 OR FEVER Last administered on 04/22/19at 00:29; Admin Dose 650 MG; Start 04/12/19 at 13:00 Docusate Sodium (Colace) 100 mg Q12H PRN PO CONSTIPATION; Start 04/12/19 at 13:00 Magnesium Hydroxide (Milk Of Mag) 30 ml DAILY PRN PO CONSTIPATION; Start 04/12/19 at 13:00 Metoprolol Tartrate (Lopressor) 5 mg Q2H PRN IV heart rate over 110 Last administered on 04/15/19 09:11; Admin Dose 5 MG; Start 04/13/19 at 09:30 Morphine Sulfate (morphine) 2 mg Q4H PRN IV SEVERE PAIN LEVEL 7-10 Last administered on 04/23/19 23:14; Admin Dose 2 MG; Start 04/13/19 at 23:30 IV Flush (NS 10 ml) 10 ml Q8 PRN IV IV PROTOCOL; Start 04/14/19 at 15:00 Lorazepam (Ativan) 1 mg Q6H PRN IV anxiety Last administered on 04/22/19 23:35; Admin Dose 1 MG; Start 04/14/19 at 15:00 Miscellaneous Information (Pending [facility]) This patient h a... PRN PRN XX WOUND CARE; Start 04/14/19 at 21:00 Amiodarone HCl (Cordarone) 400 mg TID PO Last administered on 04/17/19 13:10; Admin Dose 400 MG; Start 04/16/19 at 13:00; Status Hold Metoprolol Succinate (Toprol Xl) 100 mg BID PO Last administered on 04/29/19 08:22; Admin Dose 100 MG; Start 04/19/19 at 21:00 Albuterol/ Ipratropium (Duoneb) 3 ml Q6HWA RESP THERAPY HHN Last administered on 04/29/19 08:41; Admin Dose 3 ML; Start 04/20/19 at 20:00 Albuterol/ Ipratropium (Duoneb) 3 ml Q2H RESP THERAPY PRN HHN shortness of breath Last administered on 04/24/19 04:16; Admin Dose 3 ML; Start 04/20/19 at 15:00 Budesonide (Pulmicort (Neb)) 0.5 mg BID RESP THERAPY HHN Last administered on 04/29/19 08:41; Admin Dose 0.5 MG; Start 04/20/19 at 20:00 Silver Sulfadiazine (Thermazene 1% 25 Gm) 1 applic DAILY TOP Last administered on 04/29/19 09:56; Admin Dose 1 APPLIC; Start 04/22/19 at 12:00 Digoxin (Digoxin) 0.125 mg DAILY@13 PO Last administered on 04/29/19 12:20; Admin Dose 0.125 MG; Start 04/27/19 at 13:00 Bumetanide (Bumex) 1 mg BID PO Last administered on 04/29/19 08:21; Admin Dose 1 MG; Start 04/28/19 at 21:00 Pantoprazole (Protonix Tab) 40 mg BID PO Last administered on 04/29/19 08:21; Admin Dose 40 MG; Start 04/28/19 at 21:00 Ferric Sodium Gluconate Complex 125 mg/Sodium Chloride 100 ml @ 100 mls/hr DAILY@1300 IVPB Last administered on 04/29/19 12:18; Admin Dose 100 MLS/HR; Start 04/28/19 at 15:00; Stop 04/30/19 at 13:59 Losartan Potassium (Cozaar) 25 mg DAILY PO Last administered on 04/29/19 08:21; Admin Dose 25 MG; Start 04/29/19 at 09:00 Guaifenesin/ Dextromethorphan (Robitussin Dm Liquid Cup) 5 ml Q4H PRN PO coughing Last administered on 04/29/19 04:15; Admin Dose 5 ML; Start 04/28/19 at 20:00 RYAN VICENTE MD Apr 29, 2019 13:03
--- NOTE | 2019-04-29 15:40 | CONS ---
Assessment/Plan Cardiology NYHA: IV Heart Failure Type: Acute Heart Failure Type: Both Assessment/Plan Hospital Course (Demo Recall) Atrial fibrillation Acute decompensated systolic congestive heart failure, improved Cardia myopathy Mitral and tricuspid valve regurgitation GI bleed Heart rate trend overall remained stable Continue ARB and titrate as tolerated Diuretics as per nephrology Titrate beta-elsa as needed for heart rate control Currently off anticoagulation secondary to GI bleed, restart when ok with GI Consultation Date/Type/Reason Admit Date/Time Apr 12, 2019 at 12:21 Initial Consult Date 04/25/19 Type of Consult Cardiology Requesting Provider: MARVIN FOX MD Date/Time of Note DATE: 04/29/19 TIME: 15:34 24 HR Interval Summary Free Text/Dictation no sob,palp,cp Exam/Review of Systems Vital Signs Vitals Vital Signs Date Temp Pulse Resp B/P (MAP) Pulse Ox O2 O2 Flow FiO2 Time Delivery Rate 04/29/19 5.0 08:44 04/29/19 82 20 99 Nasal 08:44 Cannula 04/29/19 98.7 101/67 07:41 (78) 04/29/19 35 03:30 Intake and Output 04/28/19 04/28/19 04/29/19 1515:00 23:00 07:00 IntakeIntake Total 900 ml 740 ml 100 ml OutputOutput Total 100 ml 200 ml BalanceBalance 800 ml 740 ml -100 ml Exam Constitutional: alert, oriented (eating lunch) Head: normocephalic Respiratory: other (course bs, no wheeze) Cardiovascular: irregular rhythm (s1s2) Gastrointestinal: soft, non-tender, bowel sounds Extremities: edema (tr) Labs Result Diagram: 04/29/19 0643 04/29/19 0643 Results 24hrs Laboratory Tests Test 04/29/19 05:50 04/29/19 06:43 Lab Scanned Report BLOOD TRANSFUSION White Blood Count 9.1 # Red Blood Count 2.91 L Hemoglobin 8.3 L Hematocrit 27.0 L Mean Corpuscular Volume 92.8 Mean Corpuscular Hemoglobin 28.5 L Mean Corpuscular Hemoglobin Concent 30.7 L Red Cell Distribution Width 15.5 H Platelet Count 219 Mean Platelet Volume 9.1 Immature Granulocytes % 0.500 H Neutrophils % 76.3 Lymphocytes % 11.9 L Monocytes % 8.9 Eosinophils % 2.1 Basophils % 0.3 Nucleated Red Blood Cells % 0.5 H Immature Granulocytes # 0.050 H Neutrophils # 7.0 Lymphocytes # 1.1 Monocytes # 0.8 Eosinophils # 0.2 Basophils # 0.0 Nucleated Red Blood Cells # 0.1 H Sodium Level 141 Potassium Level 3.4 L Chloride Level 103 Carbon Dioxide Level 34 H Anion Gap 4 L Blood Urea Nitrogen 20 Creatinine 1.19 Glucose Level 112 Calcium Level 8.0 L Phosphorus Level 3.9 Magnesium Level 1.8 Albumin 3.2 L Medications Medications Current Medications Atorvastatin Calcium (Lipitor) 20 mg QHS PO Last administered on 04/28/19 20:11; Admin Dose 20 MG; Start 04/12/19 at 21:00 Ondansetron HCl (Zofran Inj) 4 mg Q6H PRN IV NAUSEA AND/OR VOMITING Last administered on 04/15/19 16:27; Admin Dose 4 MG; Start 04/12/19 at 13:00 Acetaminophen (Tylenol Tab) 650 mg Q6H PRN PO PAIN LEVEL 1-3 OR FEVER Last administered on 04/22/19 00:29; Admin Dose 650 MG; Start 04/12/19 at 13:00 Docusate Sodium (Colace) 100 mg Q12H PRN PO CONSTIPATION; Start 04/12/19 at 13:00 Magnesium Hydroxide (Milk Of Mag) 30 ml DAILY PRN PO CONSTIPATION; Start 04/12/19 at 13:00 Metoprolol Tartrate (Lopressor) 5 mg Q2H PRN IV heart rate over 110 Last administered on 04/15/19 09:11; Admin Dose 5 MG; Start 04/13/19 at 09:30 Morphine Sulfate (morphine) 2 mg Q4H PRN IV SEVERE PAIN LEVEL 7-10 Last administered on 04/23/19 23:14; Admin Dose 2 MG; Start 04/13/19 at 23:30 IV Flush (NS 10 ml) 10 ml Q8 PRN IV IV PROTOCOL; Start 04/14/19 at 15:00 Lorazepam (Ativan) 1 mg Q6H PRN IV anxiety Last administered on 04/22/19 23:35; Admin Dose 1 MG; Start 04/14/19 at 15:00 Miscellaneous Information (Pending [facility] Order For Wound Care) This patient urias... PRN PRN XX WOUND CARE; Start 04/14/19 at 21:00 Amiodarone HCl (Cordarone) 400 mg TID PO Last administered on 04/17/19 13:10; Admin Dose 400 MG; Start 04/16/19 at 13:00; Status Hold Metoprolol Succinate (Toprol Xl) 100 mg BID PO Last administered on 04/29/19 08:22; Admin Dose 100 MG; Start 04/19/19 at 21:00 Albuterol/ Ipratropium (Duoneb) 3 ml Q6HWA RESP THERAPY HHN Last administered on 04/29/19 08:41; Admin Dose 3 ML; Start 04/20/19 at 20:00 Albuterol/ Ipratropium (Duoneb) 3 ml Q2H RESP THERAPY PRN HHN shortness of breath Last administered on 04/24/19 04:16; Admin Dose 3 ML; Start 04/20/19 at 15:00 Budesonide (Pulmicort (Neb)) 0.5 mg BID RESP THERAPY HHN Last administered on 04/29/19 08:41; Admin Dose 0.5 MG; Start 04/20/19 at 20:00 Silver Sulfadiazine (Thermazene 1% 25 Gm) 1 applic DAILY TOP Last administered on 04/29/19 09:56; Admin Dose 1 APPLIC; Start 04/22/19 at 12:00 Digoxin (Digoxin) 0.125 mg DAILY@13 PO Last administered on 04/29/19 12:20; Admin Dose 0.125 MG; Start 04/27/19 at 13:00 Bumetanide (Bumex) 1 mg BID PO Last administered on 04/29/19 08:21; Admin Dose 1 MG; Start 04/28/19 at 21:00 Pantoprazole (Protonix Tab) 40 mg BID PO Last administered on 04/29/19 08:21; Admin Dose 40 MG; Start 04/28/19 at 21:00 Ferric Sodium Gluconate Complex 125 mg/Sodium Chloride 100 ml @ 100 mls/hr DAILY@1300 IVPB Last administered on 04/29/19 12:18; Admin Dose 100 MLS/HR; Start 04/28/19 at 15:00; Stop 04/30/19 at 13:59 Losartan Potassium (Cozaar) 25 mg DAILY PO Last administered on 8/9/19at 08:21; Admin Dose 25 MG; Start 04/29/19 at 09:00 Guaifenesin/ Dextromethorphan (Robitussin Dm Liquid Cup) 5 ml Q4H PRN PO coughing Last administered on 04/29/19at 04:15; Admin Dose 5 ML; Start 04/28/19 at 20:00 Christian Araujo DO Apr 29, 2019 15:40
[2019-04-29] MEDS: ACETAMINOPHEN 325 MG TAB PO PRN (16:49)
--- NOTE | 2019-04-29 17:12 | PN ---
Date/Time of Note Date/Time of Note DATE: 04/29/19 TIME: 16:57 Assessment/Plan VTE Prophylaxis Risk score (from Nsg)>0 risk: 2 SCD applied (from Nsg): Yes Pharmacological prophylaxis: heparin Lines/Catheters IV Catheter Type (from Nrsg): PICC Line Central line still needed: Yes Urinary Cath still in place: No Assessment/Plan Assessment/Plan Assessment/Plan Ulceration nodularity in the cecum. Suspect for neoplastic process Hematochezia Colonoscopy 04/27/2019 Ulceration nodularity in the cecum. Suspect for neoplastic process. Biopsies obtained. 1 cm sessile polyp in the proximal rectum. Snared and retrieved. 8 mm sessile polyp in the rectum. Snared and retrieved. Mild diverticulosis. Acute on chronic anemia- 2/2 to above S/p Acute hypoxic respiratory failure- stable Bilateral pneumonia Leukocytosis Elevated Tropin -Likely 2/.2 to demand Acute systolic congestive heart failure- improving New onset Afib with RVR -Eliquis on hold DANYA- resolved Elevated LFT- improving- likely 2/2 to hemodynamic instability vs congestion -Hepatitis B Core AB- positive HTN Sleep apnea - on BIPAP qhs Plan: Pathology reviewed. Cecal biopsies negative for malignancy, 2 rectal adenomas Start Delzicol 800 mg 3 times daily -continue for 3-month CEA- pending Repeat colonoscopy in 3-month Patient seen in collaboration with Dr. Devi Subjective: Patient is doing well. He denies abdominal pain, nausea vomiting or hematochezia. Because results of colonoscopy biopsy being negative for malignancy. Recommend treatment with mesalamine for the next 3 months and repeat colonoscopy in 3 months. Because the plan with the patient. Patient verbalized understanding. PHYSICAL EXAMINATION: GENERAL: Well developed, well nourished, alert & oriented x 3, in no acute distress SKIN: No lesions, no stigmata chronic liver disease, no evidence of bleeding diathesis LYMPHATIC: No palpable lymphadenopathy. HEAD: Normocephalic, atraumatic, no tenderness. EYES: Pupils equal reactive to light and accommodation, full extraocular movements, sclera clear, non-icteric, no discharge. EARS/NOSE AND THROAT: Ears normal, nose normal, oropharynx normal, oral membranes well hydrated without lesions. NECK: Supple, no masses, thyroid normal, JVP within normal limits, carotids normal without bruits. CHEST: Inspection within normal limits. CARDIOVASCULAR: Heart: Regular rate and rhythm, no murmurs, gallops or rubs. Peripheral pulses present within normal limits, no cyanosis, clubbing or edemas. No pulsatile abdominal mass RESPIRATORY: Lungs clear to auscultation and percussion, no wheezing, no rubs GASTROINTESTINAL AND LIVER: Abdomen: Soft, non tenderness, non-distended, no hernias, no masses, no organomegaly, no ascites, no guarding, no rebound tenderness, normoactive bowel sounds. Rectal: Deferred. GENITOURINARY: Male genitalia within normal limits. EXTREMITIES: No cyanosis, clubbing or edema. Result Diagram: 04/29/19 0643 04/29/19 0643 Results 24hrs Laboratory Tests Test 04/29/19 05:50 04/29/19 06:43 Lab Scanned Report BLOOD TRANSFUSION White Blood Count 9.1 # Red Blood Count 2.91 L Hemoglobin 8.3 L Hematocrit 27.0 L Mean Corpuscular Volume 92.8 Mean Corpuscular Hemoglobin 28.5 L Mean Corpuscular Hemoglobin Concent 30.7 L Red Cell Distribution Width 15.5 H Platelet Count 219 Mean Platelet Volume 9.1 Immature Granulocytes % 0.500 H Neutrophils % 76.3 Lymphocytes % 11.9 L Monocytes % 8.9 Eosinophils % 2.1 Basophils % 0.3 Nucleated Red Blood Cells % 0.5 H Immature Granulocytes # 0.050 H Neutrophils # 7.0 Lymphocytes # 1.1 Monocytes # 0.8 Eosinophils # 0.2 Basophils # 0.0 Nucleated Red Blood Cells # 0.1 H Sodium Level 141 Potassium Level 3.4 L Chloride Level 103 Carbon Dioxide Level 34 H Anion Gap 4 L Blood Urea Nitrogen 20 Creatinine 1.19 Glucose Level 112 Calcium Level 8.0 L Phosphorus Level 3.9 Magnesium Level 1.8 Albumin 3.2 L CC: CAROLE DEVI MD ; Exam/Review of Systems Exam Vitals Vital Signs Date Temp Pulse Resp B/P (MAP) Pulse Ox O2 O2 Flow FiO2 Time Delivery Rate 04/29/19 98.0 16:49 04/29/19 86 16 114/79 100 14:00 (91) 04/29/19 5.0 08:44 04/29/19 Nasal 08:44 Cannula 04/29/19 35 03:30 Intake and Output 04/28/19 04/28/19 04/29/19 1515:00 23:00 07:00 IntakeIntake Total 900 ml 740 ml 100 ml OutputOutput Total 100 ml 200 ml BalanceBalance 800 ml 740 ml -100 ml Results Results 24hrs Laboratory Tests Test 04/29/19 05:50 04/29/19 06:43 Lab Scanned Report BLOOD TRANSFUSION White Blood Count 9.1 # Red Blood Count 2.91 L Hemoglobin 8.3 L Hematocrit 27.0 L Mean Corpuscular Volume 92.8 Mean Corpuscular Hemoglobin 28.5 L Mean Corpuscular Hemoglobin Concent 30.7 L Red Cell Distribution Width 15.5 H Platelet Count 219 Mean Platelet Volume 9.1 Immature Granulocytes % 0.500 H Neutrophils % 76.3 Lymphocytes % 11.9 L Monocytes % 8.9 Eosinophils % 2.1 Basophils % 0.3 Nucleated Red Blood Cells % 0.5 H Immature Granulocytes # 0.050 H Neutrophils # 7.0 Lymphocytes # 1.1 Monocytes # 0.8 Eosinophils # 0.2 Basophils # 0.0 Nucleated Red Blood Cells # 0.1 H Sodium Level 141 Potassium Level 3.4 L Chloride Level 103 Carbon Dioxide Level 34 H Anion Gap 4 L Blood Urea Nitrogen 20 Creatinine 1.19 Glucose Level 112 Calcium Level 8.0 L Phosphorus Level 3.9 Magnesium Level 1.8 Albumin 3.2 L Medications Medication Current Medications Atorvastatin Calcium (Lipitor) 20 mg QHS PO Last administered on 04/28/19 20:11; Admin Dose 20 MG; Start 04/12/19 at 21:00 Ondansetron HCl (Zofran Inj) 4 mg Q6H PRN IV NAUSEA AND/OR VOMITING Last administered on 04/15/19 16:27; Admin Dose 4 MG; Start 04/12/19 at 13:00 Acetaminophen (Tylenol Tab) 650 mg Q6H PRN PO PAIN LEVEL 1-3 OR FEVER Last administered on 04/29/19 16:49; Admin Dose 650 MG; Start 04/12/19 at 13:00 Docusate Sodium (Colace) 100 mg Q12H PRN PO CONSTIPATION; Start 04/12/19 at 13:00 Magnesium Hydroxide (Milk Of Mag) 30 ml DAILY PRN PO CONSTIPATION; Start 04/12/19 at 13:00 Metoprolol Tartrate (Lopressor) 5 mg Q2H PRN IV heart rate over 110 Last administered on 04/15/19at 09:11; Admin Dose 5 MG; Start 04/13/19 at 09:30 Morphine Sulfate (morphine) 2 mg Q4H PRN IV SEVERE PAIN LEVEL 7-10 Last administered on 04/23/19 23:14; Admin Dose 2 MG; Start 04/13/19 at 23:30 IV Flush (NS 10 ml) 10 ml Q8 PRN IV IV PROTOCOL; Start 04/14/19 at 15:00 Lorazepam (Ativan) 1 mg Q6H PRN IV anxiety Last administered on 04/22/19 23:35; Admin Dose 1 MG; Start 04/14/19 at 15:00 Miscellaneous Information (Pending Santyl Order For Wound Care) This patient urias... PRN PRN XX WOUND CARE; Start 04/14/19 at 21:00 Amiodarone HCl (Cordarone) 400 mg TID PO Last administered on 04/17/19 13:10; Admin Dose 400 MG; Start 04/16/19 at 13:00; Status Hold Metoprolol Succinate (Toprol Xl) 100 mg BID PO Last administered on 04/29/19 08:22; Admin Dose 100 MG; Start 04/19/19 at 21:00 Albuterol/ Ipratropium (Duoneb) 3 ml Q6HWA RESP THERAPY HHN Last administered on 04/29/19 08:41; Admin Dose 3 ML; Start 04/20/19 at 20:00 Albuterol/ Ipratropium (Duoneb) 3 ml Q2H RESP THERAPY PRN HHN shortness of breath Last administered on 04/24/19 04:16; Admin Dose 3 ML; Start 04/20/19 at 15:00 Budesonide (Pulmicort (Neb)) 0.5 mg BID RESP THERAPY HHN Last administered on 04/29/19 08:41; Admin Dose 0.5 MG; Start 04/20/19 at 20:00 Silver Sulfadiazine (Thermazene 1% 25 Gm) 1 applic DAILY TOP Last administered on 04/29/19 09:56; Admin Dose 1 APPLIC; Start 04/22/19 at 12:00 Digoxin (Digoxin) 0.125 mg DAILY@13 PO Last administered on 04/29/19 12:20; Admin Dose 0.125 MG; Start 04/27/19 at 13:00 Bumetanide (Bumex) 1 mg BID PO Last administered on 04/29/19 08:21; Admin Dose 1 MG; Start 04/28/19 at 21:00 Pantoprazole (Protonix Tab) 40 mg BID PO Last administered on 04/29/19 08:21; Admin Dose 40 MG; Start 04/28/19 at 21:00 Ferric Sodium Gluconate Complex 125 mg/Sodium Chloride 100 ml @ 100 mls/hr BIANCA LY@1300 IVPB Last administered on 04/29/19 12:18; Admin Dose 100 MLS/HR; Start 04/28/19 at 15:00; Stop 04/30/19 at 13:59 Losartan Potassium (Cozaar) 25 mg DAILY PO Last administered on 04/29/19 08:21; Admin Dose 25 MG; Start 04/29/19 at 09:00 Guaifenesin/ Dextromethorphan (Robitussin Dm Liquid Cup) 5 ml Q4H PRN PO coughing Last administered on 04/29/19 04:15; Admin Dose 5 ML; Start 04/28/19 at 20:00 LYNNE GRANT [employer] Apr 29, 2019 17:11
[2019-04-29] MEDS: MESALAMINE (EC) 400 MG CAP PO SCH (21:00)
[2019-04-29] MEDS: ATORVASTATIN 20 MG TAB PO SCH (21:18)
[2019-04-30 02:00] VITALS: BP 97/61; PULSE 73; RESP 18
[2019-04-30 02:56] VITALS: PULSE 82
[2019-04-30] MEDS ORDERED: ALTEPLASE (CATHFLO) 2 MG INJ CATHETER ONE ×2 (05:30→16:30)
[2019-04-30] MEDS: ALBUTEROL/IPRATROPIUM (NEB) 3 ML AMP HHN SCH ×3 (07:14→19:40)
[2019-04-30] MEDS: BUDESONIDE (NEB) 0.5MG/2ML AMP HHN SCH ×2 (07:25→19:40)
[2019-04-30 08:00] VITALS: BP 111/78; PULSE 84; RESP 19
[2019-04-30] MEDS ORDERED: POTASSIUM CHLORIDE (SR) 20 MEQ TAB PO STA (08:53)
[2019-04-30] MEDS ORDERED: MAGNESIUM OXIDE 400 MG TAB PO ONE (09:00)
--- NOTE | 2019-04-30 10:04 | CONS ---
Consult Date/Type/Reason Admit Date/Time Apr 12, 2019 at 12:21 Initial Consult Date 04/13/19 Type of Consult Pulmonary Requesting Provider: MARVIN FOX MD Date/Time of Note DATE: 04/30/19 TIME: 10:00 Subjective Remains comfortable no respiratory distress. Objective Vital Signs Date Temp Pulse Resp B/P (MAP) Pulse Ox O2 O2 Flow FiO2 Time Delivery Rate 04/30/19 98.3 84 19 111/78 99 08:00 (89) 04/30/19 5.0 03:30 04/30/19 35 02:56 04/29/19 Nasal 22:44 Cannula Intake and Output 04/29/19 04/29/19 04/30/19 1515:00 23:00 07:00 IntakeIntake Total 100 ml BalanceBalance 100 ml Exam GENERAL: Well-nourished well-developed gentleman VITAL SIGNS: per chart NECK: Supple. No JVD or lymphadenopathy. CARDIAC EXAM: S1, S2. No added sounds or murmurs. CHEST: clear bilaterally, No added sounds, rales or wheezes ABDOMEN: Soft, nontender. No guarding or rebound. EXTREMITIES: No cyanosis, clubbing or edema. NEUROLOGIC: Generalized weakness. No focal deficits. Vent Setting Fraction of Inspired Oxygen pe: 44 Results/Medications Result Diagram: 04/30/19 0538 04/30/19 0538 Results 24 hrs Laboratory Tests Test 04/30/19 05:38 White Blood Count 8.1 Red Blood Count 2.87 L Hemoglobin 8.3 L Hematocrit 26.4 L Mean Corpuscular Volume 92.0 Mean Corpuscular Hemoglobin 28.9 L Mean Corpuscular Hemoglobin Concent 31.4 L Red Cell Distribution Width 15.9 H Platelet Count 213 Mean Platelet Volume 9.7 Immature Granulocytes % 0.900 H Neutrophils % 74.3 Lymphocytes % 13.1 L Monocytes % 7.6 Eosinophils % 3.6 Basophils % 0.5 Nucleated Red Blood Cells % 0.9 H Immature Granulocytes # 0.070 H Neutrophils # 6.0 Lymphocytes # 1.1 Monocytes # 0.6 Eosinophils # 0.3 Basophils # 0.0 Nucleated Red Blood Cells # 0.1 H Sodium Level 142 Potassium Level 3.7 Chloride Level 104 Carbon Dioxide Level 33 H Anion Gap 5 Blood Urea Nitrogen 19 Creatinine 1.21 Glucose Level 98 Calcium Level 8.2 L Phosphorus Level 3.8 Magnesium Level 1.7 Albumin 3.2 L Medications Current Medications Atorvastatin Calcium (Lipitor) 20 mg QHS PO Last administered on 04/29/19 21:18; Admin Dose 20 MG; Start 04/12/19 at 21:00 Ondansetron HCl (Zofran Inj) 4 mg Q6H PRN IV NAUSEA AND/OR VOMITING Last administered on 04/15/19 16:27; Admin Dose 4 MG; Start 04/12/19 at 13:00 Acetaminophen (Tylenol Tab) 650 mg Q6H PRN PO PAIN LEVEL 1-3 OR FEVER Last administered on 04/29/19 16:49; Admin Dose 650 MG; Start 04/12/19 at 13:00 Docusate Sodium (Colace) 100 mg Q12H PRN PO CONSTIPATION; Start 04/12/19 at 13:00 Magnesium Hydroxide (Milk Of Mag) 30 ml DAILY PRN PO CONSTIPATION; Start 04/12/19 at 13:00 Metoprolol Tartrate (Lopressor) 5 mg Q2H PRN IV heart rate over 110 Last administered on 04/15/19 09:11; Admin Dose 5 MG; Start 04/13/19 at 09:30 Morphine Sulfate (morphine) 2 mg Q4H PRN IV SEVERE PAIN LEVEL 7-10 Last administered on 04/23/19 23:14; Admin Dose 2 MG; Start 04/13/19 at 23:30 IV Flush (NS 10 ml) 10 ml Q8 PRN IV IV PROTOCOL; Start 04/14/19 at 15:00 Lorazepam (Ativan) 1 mg Q6H PRN IV anxiety Last administered on 04/22/19 23:35; Admin Dose 1 MG; Start 04/14/19 at 15:00 Miscellaneous Information (Pending Santyl Order For Wound Care) This patient urias... PRN PRN XX WOUND CARE; Start 04/14/19 at 21:00 Amiodarone HCl (Cordarone) 400 mg TID PO Last administered on 04/17/19 13:10; Admin Dose 400 MG; Start 04/16/19 at 13:00; Status Hold Metoprolol Succinate (Toprol Xl) 100 mg BID PO Last administered on 04/29/19 21:19; Admin Dose 100 MG; Start 04/19/19 at 21:00 Albuterol/ Ipratropium (Duoneb) 3 ml Q6HWA RESP THERAPY HHN Last administered on 04/30/19 07:14; Admin Dose 3 ML; Start 04/20/19 at 20:00 Albuterol/ Ipratropium (Duoneb) 3 ml Q2H RESP THERAPY PRN HHN shortness of breath Last administered on 04/24/19 04:16; Admin Dose 3 ML; Start 04/20/19 at 15:00 Budesonide (Pulmicort (Neb)) 0.5 mg BID RESP THERAPY HHN Last administered on 04/30/19 07:25; Admin Dose 0.5 MG; Start 04/20/19 at 20:00 Silver Sulfadiazine (Thermazene 1% 25 Gm) 1 applic DAILY TOP Last administered on 04/29/19 09:56; Admin Dose 1 APPLIC; Start 04/22/19 at 12:00 Digoxin (Digoxin) 0.125 mg DAILY@13 PO Last administered on 04/29/19 12:20; Admin Dose 0.125 MG; Start 04/27/19 at 13:00 Bumetanide (Bumex) 1 mg BID PO Last administered on 04/29/19 22:58; Admin Dose 1 MG; Start 04/28/19 at 21:00 Pantoprazole (Protonix Tab) 40 mg BID PO Last administered on 04/29/19 21:18; Admin Dose 40 MG; Start 04/28/19 at 21:00 Ferric Sodium Gluconate Complex 125 mg/Sodium Chloride 100 ml @ 100 mls/hr DAILY@1300 IVPB Last administered on 04/29/19 12:18; Admin Dose 100 MLS/HR; Start 04/28/19 at 15:00; Stop 04/30/19 at 13:59 Losartan Potassium (Cozaar) 25 mg DAILY PO Last administered on 04/29/19 08:21; Admin Dose 25 MG; Start 04/29/19 at 09:00 Guaifenesin/ Dextromethorphan (Robitussin Dm Liquid Cup) 5 ml Q4H PRN PO coughing Last administered on 04/29/19 04:15; Admin Dose 5 ML; Start 04/28/19 at 20:00 Mesalamine (Delzicol Dr) 800 mg TID PO ; Start 04/29/19 at 21:00 Assessment/Plan Hospital Course (Demo Recall) IMP: 1. ADHF 2. HFrEF 3. ARF--likely cardiorenal 4. Afib with RVR 5. Ischemic Hepatopathy 2/2 #1 6. Hypoxemic Resp Failure 2/2 #1 7. Recent GI bleed RECS: Supplemental O2 as needed Resumption of anticoagulation and discharge planning to longterm facility dc planning Pending transfer to [facility] versus longterm facility Repeat [facility] Apr 30, 2019 10:04
[2019-04-30] MEDS: MESALAMINE (EC) 400 MG CAP PO SCH ×3 (11:09→21:06)
[2019-04-30] MEDS: METOPROLOL (XL) 100 MG TAB PO SCH ×2 (11:10→21:00)
[2019-04-30] MEDS: PANTOPRAZOLE (EC) 40 MG TAB PO SCH ×2 (11:11→21:06)
[2019-04-30] MEDS: BUMETANIDE 1 MG TAB PO SCH ×2 (11:11→21:06)
[2019-04-30] MEDS: LOSARTAN 25 MG TAB PO SCH (11:11)
[2019-04-30] MEDS: SILVER SULFADIAZINE 1% 25 GM CR TOP SCH (11:13)
--- NOTE | 2019-04-30 12:02 | CONS ---
Assessment/Plan Assessment/Plan Assessment/Plan (Daily) 1. Oliguric Acute kidney injury on CKD 2/2 Hemodynamics from CHF and atrial fibrillation RVR , also contributing ATN from sepsis 2. acute hypoxic respiratory failure requiring BIPAP due to Bilateral PNA and CHF 3. sepsis due to Bilateral PNA 4. Acute CHF exacerbation with EF 20% on ECHO, most likely new onset since pt has been denying any H/o CHF 5. New onset afib with RVR- on cardizem gtt 6. H/o HTN 7. H/o Sleep apnea 8. H/o Possible CKD but pt has been denying it.. His Renal Us showed normal echogenicity of kidneys but kidneys are small in size, The right kidney measures 9.5 cm. The left kidney measures 9.2 cm. 9. Moderate Right sided pleural effusion s/p R thoracentesis on 04/28/19- 850cc, removed, Plan: -BUN/Cr improved to 19/1.21, Na 142- other electrolytes stable- -UO voided x8 /24 hr -s/p R thoracentesis on 04/28/19- 850cc, removed, -increase Bumex to 1mg PO BID- . Monitor electrolytes and replace as needed - Echo showed EF 20% wiht Moderate MR, moderate to severe TR, Enlarged RV and RVSP 52 - Amiodarone 400mg PO TID and metoprolol 100mg PO BID for rate control, eliquis for anticoagulation Patient seen in collaboration with Dr Dealney Perales. We will follow up. Consultation Date/Type/Reason Admit Date/Time Apr 12, 2019 at 12:21 Initial Consult Date 04/13/19 Type of Consult NEPHRO Requesting Provider: MARVIN FOX MD Date/Time of Note DATE: 04/30/19 TIME: 11:59 24 HR Interval Summary Free Text/Dictation nad; feels better afebrile no events last night walked with PT- tolerated well bun/Cr - wnl UO- voided x 8/ 24 hrs; will order strict I/O Constitutional: improved Detailed Summary Eyes: no complaints ENT: no complaints Respiratory: no complaints Cardiovascular: no complaints Gastrointestinal: decreased appetite Genitourinary: no complaints Musculoskeletal: other (generelized weakness) Skin: no complaints Neurologic: no complaints Endocrine: no complaints Lymphatic: no complaints Exam/Review of Systems Exam Vitals Vital Signs Date Temp Pulse Resp B/P (MAP) Pulse Ox O2 O2 Flow FiO2 Time Delivery Rate 04/30/19 98.3 84 19 111/78 99 08:00 (89) 04/30/19 5.0 07:16 04/30/19 Nasal 07:16 Cannula 04/30/19 35 02:56 Intake and Output 04/29/19 04/29/19 04/30/19 1515:00 23:00 07:00 IntakeIntake Total 100 ml BalanceBalance 100 ml Constitutional: alert, well developed Psych: nl mood/affect Head: normocephalic Eyes: nl lids, nl sclera Neck: non-tender Respiratory: clear to auscultation Cardiovascular: nl pulses, other (s1s2) Gastrointestinal: soft, non-tender Musculoskeletal: nl extremities to inspection Extremities: normal pulses Neurological: nl speech, other (alert/reponsive) Skin: other (no skin rash noted) Lymph: nontender Results Result Diagram: 04/30/19 0538 04/30/19 0538 Results 24hrs Laboratory Tests Test 04/30/19 05:38 White Blood Count 8.1 Red Blood Count 2.87 L Hemoglobin 8.3 L Hematocrit 26.4 L Mean Corpuscular Volume 92.0 Mean Corpuscular Hemoglobin 28.9 L Mean Corpuscular Hemoglobin Concent 31.4 L Red Cell Distribution Width 15.9 H Platelet Count 213 Mean Platelet Volume 9.7 Immature Granulocytes % 0.900 H Neutrophils % 74.3 Lymphocytes % 13.1 L Monocytes % 7.6 Eosinophils % 3.6 Basophils % 0.5 Nucleated Red Blood Cells % 0.9 H Immature Granulocytes # 0.070 H Neutrophils # 6.0 Lymphocytes # 1.1 Monocytes # 0.6 Eosinophils # 0.3 Basophils # 0.0 Nucleated Red Blood Cells # 0.1 H Sodium Level 142 Potassium Level 3.7 Chloride Level 104 Carbon Dioxide Level 33 H Anion Gap 5 Blood Urea Nitrogen 19 Creatinine 1.21 Glucose Level 98 Calcium Level 8.2 L Phosphorus Level 3.8 Magnesium Level 1.7 Albumin 3.2 L Medications Medication Current Medications Atorvastatin Calcium (Lipitor) 20 mg QHS PO Last administered on 04/29/19at 21:18; Admin Dose 20 MG; Start 04/12/19 at 21:00 Ondansetron HCl (Zofran Inj) 4 mg Q6H PRN IV NAUSEA AND/OR VOMITING Last administered on 04/15/19 16:27; Admin Dose 4 MG; Start 04/12/19 at 13:00 Acetaminophen (Tylenol Tab) 650 mg Q6H PRN PO PAIN LEVEL 1-3 OR FEVER Last administered on 04/29/19 16:49; Admin Dose 650 MG; Start 04/12/19 at 13:00 Docusate Sodium (Colace) 100 mg Q12H PRN PO CONSTIPATION; Start 04/12/19 at 13:00 Magnesium Hydroxide (Milk Of Mag) 30 ml DAILY PRN PO CONSTIPATION; Start 04/12/19 at 13:00 Metoprolol Tartrate (Lopressor) 5 mg Q2H PRN IV heart rate over 110 Last administered on 04/15/19 09:11; Admin Dose 5 MG; Start 04/13/19 at 09:30 Morphine Sulfate (morphine) 2 mg Q4H PRN IV SEVERE PAIN LEVEL 7-10 Last administered on 04/23/19 23:14; Admin Dose 2 MG; Start 04/13/19 at 23:30 IV Flush (NS 10 ml) 10 ml Q8 PRN IV IV PROTOCOL; Start 04/14/19 at 15:00 Lorazepam (Ativan) 1 mg Q6H PRN IV anxiety Last administered on 04/22/19 23:35; Admin Dose 1 MG; Start 04/14/19 at 15:00 [facility] This patient urias... PRN PRN XX WOUND CARE; Start 04/14/19 at 21:00 Amiodarone HCl (Cordarone) 400 mg TID PO Last administered on 04/17/19 13:10; Admin Dose 400 MG; Start 04/16/19 at 13:00; Status Hold Metoprolol Succinate (Toprol Xl) 100 mg BID PO Last administered on 04/30/19 11:10; Admin Dose 100 MG; Start 04/19/19 at 21:00 Albuterol/ Ipratropium (Duoneb) 3 ml Q6HWA RESP THERAPY HHN Last administered on 04/30/19 07:14; Admin Dose 3 ML; Start 04/20/19 at 20:00 Albuterol/ Ipratropium (Duoneb) 3 ml Q2H RESP THERAPY PRN HHN shortness of breath Last administered on 04/24/19 04:16; Admin Dose 3 ML; Start 04/20/19 at 15:00 Budesonide (Pulmicort (Neb)) 0.5 mg BID RESP THERAPY HHN Last administered on 04/30/19 07:25; Admin Dose 0.5 MG; Start 04/20/19 at 20:00 Silver Sulfadiazine (Thermazene 1% 25 Gm) 1 applic DAILY TOP Last administered on 04/30/19 11:13; Admin Dose 1 APPLIC; Start 04/22/19 at 12:00 Digoxin (Digoxin) 0.125 mg DAILY@13 PO Last administered on 04/29/19 12:20; Admin Dose 0.125 MG; Start 04/27/19 at 13:00 Bumetanide (Bumex) 1 mg BID PO Last administered on 04/30/19 11:11; Admin Dose 1 MG; Start 04/28/19 at 21:00 Pantoprazole (Protonix Tab) 40 mg BID PO Last administered on 04/30/19 11:11; Admin Dose 40 MG; Start 04/28/19 at 21:00 Ferric Sodium Gluconate Complex 125 mg/Sodium Chloride 100 ml @ 100 mls/hr DAILY@1300 IVPB Last administered on 04/29/19 12:18; Admin Dose 100 MLS/HR; Start 04/28/19 at 15:00; Stop 04/30/19 at 13:59 Losartan Potassium (Cozaar) 25 mg DAILY PO Last administered on 04/30/19 11:11; Admin Dose 25 MG; Start 04/29/19 at 09:00 Guaifenesin/ Dextromethorphan (Robitussin Dm Liquid Cup) 5 ml Q4H PRN PO coughing Last administered on 04/29/19 04:15; Admin Dose 5 ML; Start 04/28/19 at 20:00 Mesalamine (Delzicol Dr) 800 mg TID PO Last administered on 04/30/19 11:09; Admin Dose 800 MG; Start 04/29/19 at 21:00 ABRAHAM LEYVA Apr 30, 2019 12:02
--- NOTE | 2019-04-30 12:09 | PN ---
Date/Time of Note Date/Time of Note DATE: 04/30/19 TIME: 12:04 Assessment/Plan VTE Prophylaxis Risk score (from Nsg)>0 risk: 2 SCD applied (from Nsg): Yes Pharmacological prophylaxis: NA/contraindicated Pharm contraindication: bleeding Lines/Catheters IV Catheter Type (from Nrsg): PICC Line Central line still needed: Yes Urinary Cath still in place: No Assessment/Plan Assessment/Plan 1. Ulcerations in cecum - GI on board and appreciate recommendations. bx results noted with no malignancy seen. CEA negative. Started on mesalamine for 3 months and will need repeat colonoscopy at that time - will touch base with GI if okay to restart Eliquis - s/p colonoscopy 04/27 - CT scan noted with thickening of cecum. Results discussed with patient 2. Acute GI bleeding- resolved - hgb trending upward - colonoscopy performed 04/27 - GI on board and appreciate consultation. will restart on Eliquis when cleared by GI 3. Acute hypoxic respiratory failure- stable - wean down O2 as tolerated - Pulm consultation appreciated. - Nebs PRN 4. Acute systolic congestive heart failure- stable - BNP noted - Cardiology on board and appreciate recommendations - Nephrology on board for management of diuretics. Will continue on Bumex - monitor I/O and daily weights - ECHO results noted with low EF 5. New onset afib with RVR- stable - doing well on digoxin - amiodarone on hold given low HR - on BB - Cardiology consultation appreciated - Eliquis on hold given GI bleed 6. DANYA on CKD- stable - Nephrology consultation appreciated - US results noted - renally dose medications 7. Bilateral pneumonia- resolved - seen on CXR - ID consultation appreciated and d/c antibiotics. will monitor off antibiotics per ID recs - continue Neb tx PRN 8. Elevated trop - most likely type 2 demand - will need stress test when stable either inpatient or outpatient and possible PCI in future when renal function improves - no chest pain noted 9. Sleep apnea - on BIPAP qhs 10. HTN - continue home medications and adjust as needed 11. Pleural effusion s/p thoracentesis 04/28 - doing well post thora after 850 cc removed 12. Disposition - Continue weaning O2 as tolerated - Will restart Eliquis when okay with GI - plans for [place] vs SNF placement. CM on board Result Diagram: 04/30/19 0538 04/30/19 0538 Results 24hrs Laboratory Tests Test 04/30/19 05:38 White Blood Count 8.1 Red Blood Count 2.87 L Hemoglobin 8.3 L Hematocrit 26.4 L Mean Corpuscular Volume 92.0 Mean Corpuscular Hemoglobin 28.9 L Mean Corpuscular Hemoglobin Concent 31.4 L Red Cell Distribution Width 15.9 H Platelet Count 213 Mean Platelet Volume 9.7 Immature Granulocytes % 0.900 H Neutrophils % 74.3 Lymphocytes % 13.1 L Monocytes % 7.6 Eosinophils % 3.6 Basophils % 0.5 Nucleated Red Blood Cells % 0.9 H Immature Granulocytes # 0.070 H Neutrophils # 6.0 Lymphocytes # 1.1 Monocytes # 0.6 Eosinophils # 0.3 Basophils # 0.0 Nucleated Red Blood Cells # 0.1 H Sodium Level 142 Potassium Level 3.7 Chloride Level 104 Carbon Dioxide Level 33 H Anion Gap 5 Blood Urea Nitrogen 19 Creatinine 1.21 Glucose Level 98 Calcium Level 8.2 L Phosphorus Level 3.8 Magnesium Level 1.7 Albumin 3.2 L Subjective 24 Hr Interval Summary Free Text/Dictation Patient doing well but states hes sleepy since did not sleep well overnight given beeping of machine. Exam/Review of Systems Exam Vitals Vital Signs Date Temp Pulse Resp B/P (MAP) Pulse Ox O2 O2 Flow FiO2 Time Delivery Rate 04/30/19 98.3 84 19 111/78 99 08:00 (89) 04/30/19 5.0 07:16 04/30/19 Nasal 07:16 Cannula 04/30/19 35 02:56 Intake and Output 04/29/19 04/29/19 04/30/19 1515:00 23:00 07:00 IntakeIntake Total 100 ml BalanceBalance 100 ml Exam General: Patient is laying in bed and answers questions appropriately Neck: Supple Respiratory: Diminished bilaterally, no wheezing Cardiovascular: regular rate and rhythm, no obvious murmurs Gastrointestinal: soft, non-tender to palpation, bowel sounds heard. Ext: Moves all extremities spontaneously Skin: No new skin lesions Results Results 24hrs Laboratory Tests Test 04/30/19 05:38 White Blood Count 8.1 Red Blood Count 2.87 L Hemoglobin 8.3 L Hematocrit 26.4 L Mean Corpuscular Volume 92.0 Mean Corpuscular Hemoglobin 28.9 L Mean Corpuscular Hemoglobin Concent 31.4 L Red Cell Distribution Width 15.9 H Platelet Count 213 Mean Platelet Volume 9.7 Immature Granulocytes % 0.900 H Neutrophils % 74.3 Lymphocytes % 13.1 L Monocytes % 7.6 Eosinophils % 3.6 Basophils % 0.5 Nucleated Red Blood Cells % 0.9 H Immature Granulocytes # 0.070 H Neutrophils # 6.0 Lymphocytes # 1.1 Monocytes # 0.6 Eosinophils # 0.3 Basophils # 0.0 Nucleated Red Blood Cells # 0.1 H Sodium Level 142 Potassium Level 3.7 Chloride Level 104 Carbon Dioxide Level 33 H Anion Gap 5 Blood Urea Nitrogen 19 Creatinine 1.21 Glucose Level 98 Calcium Level 8.2 L Phosphorus Level 3.8 Magnesium Level 1.7 Albumin 3.2 L Medications Medication Current Medications Atorvastatin Calcium (Lipitor) 20 mg QHS PO Last administered on 04/29/19 21:18; Admin Dose 20 MG; Start 04/12/19 at 21:00 Ondansetron HCl (Zofran Inj) 4 mg Q6H PRN IV NAUSEA AND/OR VOMITING Last administered on 04/15/19 16:27; Admin Dose 4 MG; Start 04/12/19 at 13:00 Acetaminophen (Tylenol Tab) 650 mg Q6H PRN PO PAIN LEVEL 1-3 OR FEVER Last administered on 04/29/19 16:49; Admin Dose 650 MG; Start 04/12/19 at 13:00 Docusate Sodium (Colace) 100 mg Q12H PRN PO CONSTIPATION; Start 04/12/19 at 13:00 Magnesium Hydroxide (Milk Of Mag) 30 ml DAILY PRN PO CONSTIPATION; Start 04/12/19 at 13:00 Metoprolol Tartrate (Lopressor) 5 mg Q2H PRN IV heart rate over 110 Last administered on 04/15/19 09:11; Admin Dose 5 MG; Start 04/13/19 at 09:30 Morphine Sulfate (morphine) 2 mg Q4H PRN IV SEVERE PAIN LEVEL 7-10 Last adm inistered on 04/23/19 23:14; Admin Dose 2 MG; Start 04/13/19 at 23:30 IV Flush (NS 10 ml) 10 ml Q8 PRN IV IV PROTOCOL; Start 04/14/19 at 15:00 Lorazepam (Ativan) 1 mg Q6H PRN IV anxiety Last administered on 04/22/19 23:35; Admin Dose 1 MG; Start 04/14/19 at 15:00 Miscellaneous Information (Pending [facility] Order For Wound Care) This patient urias... PRN PRN XX WOUND CARE; Start 04/14/19 at 21:00 Amiodarone HCl (Cordarone) 400 mg TID PO Last administered on 04/17/19 13:10; Admin Dose 400 MG; Start 04/16/19 at 13:00; Status Hold Metoprolol Succinate (Toprol Xl) 100 mg BID PO Last administered on 04/30/19 11:10; Admin Dose 100 MG; Start 04/19/19 at 21:00 Albuterol/ Ipratropium (Duoneb) 3 ml Q6HWA RESP THERAPY HHN Last administered on 04/30/19 07:14; Admin Dose 3 ML; Start 04/20/19 at 20:00 Albuterol/ Ipratropium (Duoneb) 3 ml Q2H RESP THERAPY PRN HHN shortness of breath Last administered on 04/24/19 04:16; Admin Dose 3 ML; Start 04/20/19 at 15:00 Budesonide (Pulmicort (Neb)) 0.5 mg BID RESP THERAPY HHN Last administered on 04/30/19 07:25; Admin Dose 0.5 MG; Start 04/20/19 at 20:00 Silver Sulfadiazine (Thermazene 1% 25 Gm) 1 applic DAILY TOP Last administered on 04/30/19 11:13; Admin Dose 1 APPLIC; Start 04/22/19 at 12:00 Digoxin (Digoxin) 0.125 mg DAILY@13 PO Last administered on 04/29/19 12:20; Admin Dose 0.125 MG; Start 04/27/19 at 13:00 Bumetanide (Bumex) 1 mg BID PO Last administered on 04/30/19 11:11; Admin Dose 1 MG; Start 04/28/19 at 21:00 Pantoprazole (Protonix Tab) 40 mg BID PO Last administered on 04/30/19 11:11; Admin Dose 40 MG; Start 04/28/19 at 21:00 Ferric Sodium Gluconate Complex 125 mg/Sodium Chloride 100 ml @ 100 mls/hr DAILY@1300 IVPB Last administered on 04/29/19 12:18; Admin Dose 100 MLS/HR; Start 04/28/19 at 15:00; Stop 04/30/19 at 13:59 Losartan Potassium (Cozaar) 25 mg DAILY PO Last administered on 04/30/19 11:11; Admin Dose 25 MG; Start 04/29/19 at 09:00 Guaifenesin/ Dextromethorphan (Robitussin Dm Liquid Cup) 5 ml Q4H PRN PO co ughing Last administered on 04/29/19 04:15; Admin Dose 5 ML; Start 04/28/19 at 20:00 Mesalamine (Delzicol Dr) 800 mg TID PO Last administered on 04/30/19 11:09; Admin Dose 800 MG; Start 04/29/19 at 21:00 MARVIN FOX MD Apr 30, 2019 12:09
[2019-04-30 14:00] VITALS: BP 101/66; PULSE 84; RESP 18
--- NOTE | 2019-04-30 14:11 | PN ---
Date/Time of Note Date/Time of Note DATE: 04/30/19 TIME: 14:03 Assessment/Plan VTE Prophylaxis Risk score (from Ns)>0 risk: 2 SCD applied (from Ns): Yes Pharmacological prophylaxis: NA/contraindicated Pharm contraindication: bleeding Lines[facility] Central line still needed: Yes Urinary Cath still in place: No Assessment/Plan Assessment/Plan Assessment/Plan Ulceration nodularity in the cecum. Suspect for neoplastic process Hematochezia Colonoscopy 04/27/2019 Ulceration nodularity in the cecum. Suspect for neoplastic process. Biopsies obtained. 1 cm sessile polyp in the proximal rectum. Snared and retrieved. 8 mm sessile polyp in the rectum. Snared and retrieved. Mild diverticulosis. Acute on chronic anemia- 2/2 to above S/p Acute hypoxic respiratory failure- stable Bilateral pneumonia Leukocytosis Elevated Tropin -Likely 2/.2 to demand Acute systolic congestive heart failure- improving New onset Afib with RVR -Eliquis on hold DANYA- resolved Elevated LFT- improving- likely 2/2 to hemodynamic instability vs congestion -Hepatitis B Core AB- positive HTN Sleep apnea - on BIPAP qhs Plan: Pathology reviewed. Cecal biopsies negative for malignancy, 2 rectal adenomas Start Delzicol 800 mg 3 times daily -continue for 3-month CEA- normal, 0.9 Repeat colonoscopy in 3-month Patient seen in collaboration with Dr. Devi Subjective: Patient is doing well. He denies abdominal pain, nausea vomiting, having bowel movements, no diarrhea, no bleeding, tolerating diet. Recommend treatment with mesalamine for the next 3 months and repeat colonoscopy in 3 months. Should repeat colonoscopy outpatient in about 3 months to ensure resolution. Discussed the plan with patient. PHYSICAL EXAMINATION: GENERAL: Well developed, well nourished, alert & oriented x 3, in no acute distress SKIN: No lesions, no stigmata chronic liver disease, no evidence of bleeding diathesis LYMPHATIC: No palpable lymphadenopathy. HEAD: Normocephalic, atraumatic, no tenderness. EYES: Pupils equal reactive to light and accommodation, full extraocular movements, sclera clear, non-icteric, no discharge. EARS/NOSE AND THROAT: Ears normal, nose normal, oropharynx normal, oral membranes well hydrated without lesions. NECK: Supple, no masses, thyroid normal, JVP within normal limits, carotids normal without bruits. CHEST: Inspection within normal limits. CARDIOVASCULAR: Heart: Regular rate and rhythm, no murmurs, gallops or rubs. Peripheral pulses present within normal limits, no cyanosis, clubbing or edemas. No pulsatile abdominal mass RESPIRATORY: Lungs clear to auscultation and percussion, no wheezing, no rubs GASTROINTESTINAL AND LIVER: Abdomen: Soft, non tenderness, non-distended, no hernias, no masses, no organomegaly, no ascites, no guarding, no rebound tenderness, normoactive bowel sounds. Rectal: Deferred. GENITOURINARY: Male genitalia within normal limits. EXTREMITIES: No cyanosis, clubbing or edema. Result Diagram: 04/30/1953704/30/19537 Results 24hrs Laboratory Tests Test 04/30/19 05:38 04/30/19 12:00 White Blood Count 8.1 Red Blood Count 2.87 L Hemoglobin 8.3 L Hematocrit 26.4 L Mean Corpuscular Volume 92.0 Mean Corpuscular Hemoglobin 28.9 L Mean Corpuscular Hemoglobin Concent 31.4 L Red Cell Distribution Width 15.9 H Platelet Count 213 Mean Platelet Volume 9.7 Immature Granulocytes % 0.900 H Neutrophils % 74.3 Lymphocytes % 13.1 L Monocytes % 7.6 Eosinophils % 3.6 Basophils % 0.5 Nucleated Red Blood Cells % 0.9 H Immature Granulocytes # 0.070 H Neutrophils # 6.0 Lymphocytes # 1.1 Monocytes # 0.6 Eosinophils # 0.3 Basophils # 0.0 Nucleated Red Blood Cells # 0.1 H Sodium Level 142 Potassium Level 3.7 Chloride Level 104 Carbon Dioxide Level 33 H Anion Gap 5 Blood Urea Nitrogen 19 Creatinine 1.21 Glucose Level 98 Calcium Level 8.2 L Phosphorus Level 3.8 Magnesium Level 1.7 Albumin 3.2 L Blood Gas Specimen Source Blood arterial Arterial Blood Date Drawn 04/30/2019 12:05:46 PM Arterial Blood pH (Temp corrected) 7.422 Arterial Blood pCO2 (Temp correct) 45.5 H Arterial Blood pO2 (Temp corrected) 75.3 L Arterial Blood HCO3 29.0 H Arterial Blood Base Excess 4.1 H Arterial Blood Oxygen Saturation 94.7 L Can Test ACCEPTAB Arterial Blood Gas Puncture Site Left Radial Arterial Blood Carboxyhemoglobin 0.3 Arterial Blood Methemoglobin 0.4 Blood Gas A-a O2 Differential 121.4 H Oxyhemoglobin Percent 94.0 Blood Gas Temperature 37.0 Blood Gas Modality NASAL CANNULA FiO2 35.0 Blood Gas Notified Whom GABE Blood Gas Notified Time 04/30/2019 12:19:37 PM CC: CAROLE DEVI MD ; Exam/Review of Systems Exam Vitals Vital Signs Date Temp Pulse Resp B/P (MAP) Pulse Ox O2 O2 Flow FiO2 Time Delivery Rate 04/30/19 98.3 84 19 111/78 99 08:00 (89) 04/30/19 5.0 07:16 04/30/19 Nasal 07:16 Cannula 04/30/19 35 02:56 Intake and Output 04/29/19 04/29/19 04/30/19 1515:00 23:00 07:00 IntakeIntake Total 100 ml BalanceBalance 100 ml Results Results 24hrs Laboratory Tests Test 04/30/19 05:38 04/30/19 12:00 White Blood Count 8.1 Red Blood Count 2.87 L Hemoglobin 8.3 L Hematocrit 26.4 L Mean Corpuscular Volume 92.0 Mean Corpuscular Hemoglobin 28.9 L Mean Corpuscular Hemoglobin Concent 31.4 L Red Cell Distribution Width 15.9 H Platelet Count 213 Mean Platelet Volume 9.7 Immature Granulocytes % 0.900 H Neutrophils % 74.3 Lymphocytes % 13.1 L Monocytes % 7.6 Eosinophils % 3.6 Basophils % 0.5 Nucleated Red Blood Cells % 0.9 H Immature Granulocytes # 0.070 H Neutrophils # 6.0 Lymphocytes # 1.1 Monocytes # 0.6 Eosinophils # 0.3 Basophils # 0.0 Nucleated Red Blood Cells # 0.1 H Sodium Level 142 Potassium Level 3.7 Chloride Level 104 Carbon Dioxide Level 33 H Anion Gap 5 Blood Urea Nitrogen 19 Creatinine 1.21 Glucose Level 98 Calcium Level 8.2 L Phosphorus Level 3.8 Magnesium Level 1.7 Albumin 3.2 L Blood Gas Specimen Source Blood arterial Arterial Blood Date Drawn 04/30/2019 12:05:46 PM Arterial Blood pH (Temp corrected) 7.422 Arterial Blood pCO2 (Temp correct) 45.5 H Arterial Blood pO2 (Temp corrected) 75.3 L Arterial Blood HCO3 29.0 H Arterial Blood Base Excess 4.1 H Arterial Blood Oxygen Saturation 94.7 L Can Test ACCEPTAB Arterial Blood Gas Puncture Site Left Radial Arterial Blood Carboxyhemoglobin 0.3 Arterial Blood Methemoglobin 0.4 Blood Gas A-a O2 Differential 121.4 H Oxyhemoglobin Percent 94.0 Blood Gas Temperature 37.0 Blood Gas Modality NASAL CANNULA FiO2 35.0 Blood Gas Notified Whom GABE Blood Gas Notified Time 04/30/2019 12:19:37 PM Medications Medication Current Medications Atorvastatin Calcium (Lipitor) 20 mg QHS PO Last administered on 04/29/19 21:18; Admin Dose 20 MG; Start 04/12/19 at 21:00 Ondansetron HCl (Zofran Inj) 4 mg Q6H PRN IV NAUSEA AND/OR VOMITING Last administered on 04/15/19 16:27; Admin Dose 4 MG; Start 04/12/19 at 13:00 Acetaminophen (Tylenol Tab) 650 mg Q6H PRN PO PAIN LEVEL 1-3 OR FEVER Last administered on 04/29/19 16:49; Admin Dose 650 MG; Start 04/12/19 at 13:00 Docusate Sodium (Colace) 100 mg Q12H PRN PO CONSTIPATION; Start 04/12/19 at 13:00 Magnesium Hydroxide (Milk Of Mag) 30 ml DAILY PRN PO CONSTIPATION; Start 04/12/19 at 13:00 Morphine Sulfate (morphine) 2 mg Q4H PRN IV SEVERE PAIN LEVEL 7-10 Last administered on 04/23/19 23:14; Admin Dose 2 MG; Start 04/13/19 at 23:30 IV Flush (NS 10 ml) 10 ml Q8 PRN IV IV PROTOCOL; Start 04/14/19 at 15:00 Lorazepam (Ativan) 1 mg Q6H PRN IV anxiety Last administered on 04/22/19 23:35; Admin Dose 1 MG; Start 04/14/19 at 15:00 Miscellaneous Information (Pending [facility] Order For Wound Care) This patient urias... PRN PRN XX WOUND CARE; Start 04/14/19 at 21:00 Amiodarone HCl (Cordarone) 400 mg TID PO Last administered on 04/17/19 13:10; Admin Dose 400 MG; Start 04/16/19 at 13:00; Status Hold Metoprolol Succinate (Toprol Xl) 100 mg BID PO Last administered on 04/30/19 11:10; Admin Dose 100 MG; Start 04/19/19 at 21:00 Albuterol/ Ipratropium (Duoneb) 3 ml Q6HWA RESP THERAPY HHN Last administered on 04/30/19 13:59; Admin Dose 3 ML; Start 04/20/19 at 20:00 Albuterol/ Ipratropium (Duoneb) 3 ml Q2H RESP THERAPY PRN HHN shortness of breath Last administered on 04/24/19 04:16; Admin Dose 3 ML; Start 04/20/19 at 1 5:00 Budesonide (Pulmicort (Neb)) 0.5 mg BID RESP THERAPY HHN Last administered on 04/30/19 07:25; Admin Dose 0.5 MG; Start 04/20/19 at 20:00 Silver Sulfadiazine (Thermazene 1% 25 Gm) 1 applic DAILY TOP Last administered on 04/30/19 11:13; Admin Dose 1 APPLIC; Start 04/22/19 at 12:00 Digoxin (Digoxin) 0.125 mg DAILY@13 PO Last administered on 04/29/19 12:20; Admin Dose 0.125 MG; Start 04/27/19 at 13:00 Bumetanide (Bumex) 1 mg BID PO Last administered on 04/30/19 11:11; Admin Dose 1 MG; Start 04/28/19 at 21:00 Pantoprazole (Protonix Tab) 40 mg BID PO Last administered on 04/30/19 11:11; Admin Dose 40 MG; Start 04/28/19 at 21:00 Losartan Potassium (Cozaar) 25 mg DAILY PO Last administered on 04/30/19 11:11; Admin Dose 25 MG; Start 04/29/19 at 09:00 Guaifenesin/ Dextromethorphan (Robitussin Dm Liquid Cup) 5 ml Q4H PRN PO coughing Last administered on 04/29/19 04:15; Admin Dose 5 ML; Start 04/28/19 at 20:00 Mesalamine (Delzicol Dr) 800 mg TID PO Last administered on 04/30/19 11:09; Admin Dose 800 MG; Start 04/29/19 at 21:00 LEVI WHITEHEAD NP Apr 30, 2019 14:11
[2019-04-30] MEDS: SOD FERRIC GLUC COMPLX 125 MG in SOD CHLORIDE 0.9% 100 ML IVPB SCH (16:03)
[2019-04-30] MEDS: DIGOXIN 0.125 MG TAB PO SCH (16:03)
[2019-04-30 20:00] VITALS: BP 96/68; PULSE 76; RESP 18
[2019-04-30] MEDS: ATORVASTATIN 20 MG TAB PO SCH (21:06)
[2019-05-01 02:00] VITALS: BP 113/66; PULSE 101; RESP 18
[2019-05-01] MEDS: ACETAMINOPHEN 325 MG TAB PO PRN (05:17)
[2019-05-01] MEDS: ALBUTEROL/IPRATROPIUM (NEB) 3 ML AMP HHN SCH ×3 (07:42→19:44)
[2019-05-01 07:47] VITALS: BP 122/79; PULSE 80; RESP 16
[2019-05-01] MEDS: BUDESONIDE (NEB) 0.5MG/2ML AMP HHN SCH ×2 (07:53→19:45)
[2019-05-01] MEDS ORDERED: POTASSIUM CHLORIDE (SR) 20 MEQ TAB PO STA (08:27)
[2019-05-01] MEDS ORDERED: MAGNESIUM OXIDE 400 MG TAB PO ONE (08:30)
[2019-05-01] MEDS: BUMETANIDE 1 MG TAB PO SCH ×2 (08:36→20:36)
[2019-05-01] MEDS: METOPROLOL (XL) 100 MG TAB PO SCH ×2 (08:36→20:39)
[2019-05-01] MEDS: PANTOPRAZOLE (EC) 40 MG TAB PO SCH ×2 (08:36→20:36)
[2019-05-01] MEDS: MESALAMINE (EC) 400 MG CAP PO SCH ×3 (08:37→20:36)
[2019-05-01] MEDS: SILVER SULFADIAZINE 1% 25 GM CR TOP SCH (08:37)
[2019-05-01] MEDS: LOSARTAN 25 MG TAB PO SCH (08:37)
[2019-05-01] MEDS ORDERED: KETOROLAC 15 MG INJ IV STA (11:36)
--- NOTE | 2019-05-01 11:42 | PN ---
Date/Time of Note Date/Time of Note DATE: 05/01/19 TIME: 11:36 Assessment/Plan VTE Prophylaxis Risk score (from Nsg)>0 risk: 4 SCD applied (from Nsg): Yes Pharmacological prophylaxis: apixaban Lines/Catheters IV Catheter Type (from Nrsg): PICC Line Central line still needed: Yes Urinary Cath still in place: No Assessment/Plan Assessment/Plan 1. Ulcerations in cecum - GI on board and appreciate recommendations. bx results noted with no malignancy seen. CEA negative. Started on mesalamine for 3 months and will need repeat colonoscopy at that time - s/p colonoscopy 04/27 - CT scan noted with thickening of cecum. Results discussed with patient 2. Acute GI bleeding- resolved - hgb trending upward - colonoscopy performed 04/27 - GI on board and appreciate consultation. 3. Acute hypoxic respiratory failure- stable - wean down O2 as tolerated. Now on 2L - Pulm consultation appreciated. - Nebs PRN 4. Acute systolic congestive heart failure- stable - BNP noted - Cardiology on board and appreciate recommendations - Nephrology on board for management of diuretics. Will continue on Bumex - monitor I/O and daily weights - ECHO results noted with low EF 5. New onset afib with RVR- stable - doing well on digoxin - on BB - Cardiology consultation appreciated - Eliquis on hold given GI bleed 6. DANYA on CKD- stable - Nephrology consultation appreciated - US results noted - renally dose medications 7. Bilateral pneumonia- resolved - seen on CXR - ID consultation appreciated and d/c antibiotics. will monitor off antibiotics per ID recs - continue Neb tx PRN 8. Elevated trop - most likely type 2 demand - will need stress test when stable either inpatient or outpatient and possible PCI in future when renal function improves - no chest pain noted 9. Sleep apnea - on BIPAP qhs 10. HTN - will decrease losartan dose by half given low BP - continue BB given elevated HR at times 11. Pleural effusion s/p thoracentesis 04/28 - doing well post thora after 850 cc removed - respiratory status improving after procedure. Now only on 2L 12. Disposition - Continue weaning O2 as tolerated - Will restart Eliquis today and monitor for any GI bleeding - Cm on board for assistance with placement to SNF. Evaluation pending for Josh but patients respiratory status continues to improve so may not qualify Result Diagram: 05/01/19 0530 05/01/19 0530 Results 24hrs Laboratory Tests Test 04/30/19 12:00 05/01/19 05:30 Blood Gas Specimen Source Blood arterial Arterial Blood Date Drawn 04/30/2019 12:05:46 PM Arterial Blood pH (Temp corrected) 7.422 Arterial Blood pCO2 (Temp correct) 45.5 H Arterial Blood pO2 (Temp corrected) 75.3 L Arterial Blood HCO3 29.0 H Arterial Blood Base Excess 4.1 H Arterial Blood Oxygen Saturation 94.7 L Can Test ACCEPTAB Arterial Blood Gas Puncture Site Left Radial Arterial Blood Carboxyhemoglobin 0.3 Arterial Blood Methemoglobin 0.4 Blood Gas A-a O2 Differential 121.4 H Oxyhemoglobin Percent 94.0 Blood Gas Temperature 37.0 Blood Gas Modality NASAL CANNULA FiO2 35.0 Blood Gas Notified Whom AKADO Blood Gas Notified Time 04/30/2019 12:19:37 PM White Blood Count 8.2 Red Blood Count 2.88 L Hemoglobin 8.4 L Hematocrit 27.6 L Mean Corpuscular Volume 95.8 Mean Corpuscular Hemoglobin 29.2 Mean Corpuscular Hemoglobin Concent 30.4 L Red Cell Distribution Width 16.3 H Platelet Count 328 # Mean Platelet Volume 9.3 Immature Granulocytes % 1.100 H Neutrophils % 70.2 Lymphocytes % 17.2 Monocytes % 8.7 Eosinophils % 2.4 Basophils % 0.4 Nucleated Red Blood Cells % 0.5 H Immature Granulocytes # 0.090 H Neutrophils # 5.7 Lymphocytes # 1.4 Monocytes # 0.7 Eosinophils # 0.2 Basophils # 0.0 Nucleated Red Blood Cells # 0.0 Sodium Level 142 Potassium Level 3.5 Chloride Level 102 Carbon Dioxide Level 35 H Anion Gap 5 Blood Urea Nitrogen 16 Creatinine 1.16 Glucose Level 103 Calcium Level 8.4 Phosphorus Level 3.6 Magnesium Level 1.8 Albumin 3.3 Subjective 24 Hr Interval Summary Free Text/Dictation Patient concerned that his BP has been dipping into the 90s. Also complaining of headache and no relief with Tylenol. No further GI bleeding Exam/Review of Systems Exam Vitals Vital Signs Date Temp Pulse Resp B/P (MAP) Pulse Ox O2 O2 Flow FiO2 Time Delivery Rate 05/01/19 Nasal 2.0 08:49 Cannula 05/01/19 98.3 80 16 122/79 99 07:47 (93) 04/30/19 35 02:56 Intake and Output 04/30/19 04/30/19 05/01/19 1515:00 23:00 07:00 IntakeIntake Total 600 ml 1940 ml 340 ml OutputOutput Total 200 ml BalanceBalance 600 ml 1940 ml 140 ml Exam General: Patient is laying in bed and answers questions appropriately Neck: Supple Respiratory: Diminished bilaterally, no wheezing Cardiovascular: regular rate and rhythm, no obvious murmurs Gastrointestinal: soft, non-tender to palpation, bowel sounds heard. Ext: Moves all extremities spontaneously Skin: No new skin lesions Results Results 24hrs Laboratory Tests Test 04/30/19 12:00 05/01/19 05:30 Blood Gas Specimen Source Blood arterial Arterial Blood Date Drawn 04/30/2019 12:05:46 PM Arterial Blood pH (Temp corrected) 7.422 Arterial Blood pCO2 (Temp correct) 45.5 H Arterial Blood pO2 (Temp corrected) 75.3 L Arterial Blood HCO3 29.0 H Arterial Blood Base Excess 4.1 H Arterial Blood Oxygen Saturation 94.7 L Can Test ACCEPTAB Arterial Blood Gas Puncture Site Left Radial Arterial Blood Carboxyhemoglobin 0.3 Arterial Blood Methemoglobin 0.4 Blood Gas A-a O2 Differential 121.4 H Oxyhemoglobin Percent 94.0 Blood Gas Temperature 37.0 Blood Gas Modality NASAL CANNULA FiO2 35.0 Blood Gas Notified Whom [facility] Blood Gas Notified Time 04/30/2019 12:19:37 PM White Blood Count 8.2 Red Blood Count 2.88 L Hemoglobin 8.4 L Hematocrit 27.6 L Mean Corpuscular Volume 95.8 Mean Corpuscular Hemoglobin 29.2 Mean Corpuscular Hemoglobin Concent 30.4 L Red Cell Distribution Width 16.3 H Platelet Count 328 # Mean Platelet Volume 9.3 Immature Granulocytes % 1.100 H Neutrophils % 70.2 Lymphocytes % 17.2 Monocytes % 8.7 Eosinophils % 2.4 Basophils % 0.4 Nucleated Red Blood Cells % 0.5 H Immature Granulocytes # 0.090 H Neutrophils # 5.7 Lymphocytes # 1.4 Monocytes # 0.7 Eosinophils # 0.2 Basophils # 0.0 Nucleated Red Blood Cells # 0.0 Sodium Level 142 Potassium Level 3.5 Chloride Level 102 Carbon Dioxide Level 35 H Anion Gap 5 Blood Urea Nitrogen 16 Creatinine 1.16 Glucose Level 103 Calcium Level 8.4 Phosphorus Level 3.6 Magnesium Level 1.8 Albumin 3.3 Medications Medication Current Medications Atorvastatin Calcium (Lipitor) 20 mg QHS PO Last administered on 04/30/19 21: 06; Admin Dose 20 MG; Start 04/12/19 at 21:00 Ondansetron HCl (Zofran Inj) 4 mg Q6H PRN IV NAUSEA AND/OR VOMITING Last administered on 04/15/19 16:27; Admin Dose 4 MG; Start 04/12/19 at 13:00 Acetaminophen (Tylenol Tab) 650 mg Q6H PRN PO PAIN LEVEL 1-3 OR FEVER Last administered on 05/01/19 05:17; Admin Dose 650 MG; Start 04/12/19 at 13:00 Docusate Sodium (Colace) 100 mg Q12H PRN PO CONSTIPATION; Start 04/12/19 at 13:00 Magnesium Hydroxide (Milk Of Mag) 30 ml DAILY PRN PO CONSTIPATION; Start 04/12/19 at 13:00 Morphine Sulfate (morphine) 2 mg Q4H PRN IV SEVERE PAIN LEVEL 7-10 Last admini stered on 04/23/19 23:14; Admin Dose 2 MG; Start 04/13/19 at 23:30 IV Flush (NS 10 ml) 10 ml Q8 PRN IV IV PROTOCOL; Start 04/14/19 at 15:00 Lorazepam (Ativan) 1 mg Q6H PRN IV anxiety Last administered on 04/22/19 23:35; Admin Dose 1 MG; Start 04/14/19 at 15:00 [facility]isc[facility] This patient urias... PRN PRN XX WOUND CARE; Start 04/14/19 at 21:00 Amiodarone HCl (Cordarone) 400 mg TID PO Last administered on 04/17/19 13:10; Admin Dose 400 MG; Start 04/16/19 at 13:00; Status Hold Metoprolol Succinate (Toprol Xl) 100 mg BID PO Last administered on 05/01/19 08:36; Admin Dose 100 MG; Start 04/19/19 at 21:00 Albuterol/ Ipratropium (Duoneb) 3 ml Q6HWA RESP THERAPY HHN Last administered on 05/01/19 07:42; Admin Dose 3 ML; Start 04/20/19 at 20:00 Albuterol/ Ipratropium (Duoneb) 3 ml Q2H RESP THERAPY PRN HHN shortness of breath Last administered on 04/24/19 04:16; Admin Dose 3 ML; Start 04/20/19 at 15:00 Budesonide (Pulmicort (Neb)) 0.5 mg BID RESP THERAPY HHN Last administered on 05/01/19 07:53; Admin Dose 0.5 MG; Start 04/20/19 at 20:00 Silver Sulfadiazine (Thermazene 1% 25 Gm) 1 applic DAILY TOP Last administered on 05/01/19 08:37; Admin Dose 1 APPLIC; Start 04/22/19 at 12:00 Digoxin (Digoxin) 0.125 mg DAILY@13 PO Last administered on 04/30/19 16:03; Admin Dose 0.125 MG; Start 04/27/19 at 13:00 Bumetanide (Bumex) 1 mg BID PO Last administered on 05/01/19 08:36; Admin Dose 1 MG; Start 04/28/19 at 21:00 Pantoprazole (Protonix Tab) 40 mg BID PO Last administered on 05/01/19 08:36; Admin Dose 40 MG; Start 04/28/19 at 21:00 Losartan Potassium (Cozaar) 25 mg DAILY PO Last administered on 05/01/19 08:37; Admin Dose 25 MG; Start 04/29/19 at 09:00 Guaifenesin/ Dextromethorphan (Robitussin Dm Liquid Cup) 5 ml Q4H PRN PO zeynephosea eliana Last administered on 04/29/19 04:15; Admin Dose 5 ML; Start 04/28/19 at 20:00 Mesalamine (Delzicol Dr) 800 mg TID PO Last administered on 05/01/19 08:37; Admin Dose 800 MG; Start 04/29/19 at 21:00 Miscellaneous Information Patients own medicat... BID@10,16 XX ; Start 05/01/19 at 10:00 MARVIN FOX MD May 01, 2019 11:42
--- NOTE | 2019-05-01 11:54 | CONS ---
Consult Date/Type/Reason Admit Date/Time Apr 12, 2019 at 12:21 Initial Consult Date 04/13/19 Type of Consult Pulmonary Requesting Provider: MARVIN FOX MD Date/Time of Note DATE: 05/01/19 TIME: 11:53 Subjective FiO2 decreased to 4 L. Remains comfortable this morning. Objective Vital Signs Date Temp Pulse Resp B/P (MAP) Pulse Ox O2 O2 Flow FiO2 Time Delivery Rate 05/01/19 Nasal 2.0 08:49 Cannula 05/01/19 98.3 80 16 122/79 99 07:47 (93) 04/30/19 35 02:56 Intake and Output 04/30/19 04/30/19 05/01/19 1515:00 23:00 07:00 IntakeIntake Total 600 ml 1940 ml 340 ml OutputOutput Total 200 ml BalanceBalance 600 ml 1940 ml 140 ml Exam GENERAL: Well-nourished well-developed gentleman VITAL SIGNS: per chart NECK: Supple. No JVD or lymphadenopathy. CARDIAC EXAM: S1, S2. No added sounds or murmurs. CHEST: clear bilaterally, No added sounds, rales or wheezes ABDOMEN: Soft, nontender. No guarding or rebound. EXTREMITIES: No cyanosis, clubbing or edema. NEUROLOGIC: Generalized weakness. No focal deficits. Vent Setting Fraction of Inspired Oxygen pe: 44 Results/Medications Result Diagram: 05/01/19 0530 05/01/19 0530 Results 24 hrs Laboratory Tests Test 04/30/19 12:00 05/01/19 05:30 Blood Gas Specimen Source Blood arterial Arterial Blood Date Drawn 04/30/2019 12:05:46 PM Arterial Blood pH (Temp corrected) 7.422 Arterial Blood pCO2 (Temp correct) 45.5 H Arterial Blood pO2 (Temp corrected) 75.3 L Arterial Blood HCO3 29.0 H Arterial Blood Base Excess 4.1 H Arterial Blood Oxygen Saturation 94.7 L Can Test ACCEPTAB Arterial Blood Gas Puncture Site Left Radial Arterial Blood Carboxyhemoglobin 0.3 Arterial Blood Methemoglobin 0.4 Blood Gas A-a O2 Differential 121.4 H Oxyhemoglobin Percent 94.0 Blood Gas Temperature 37.0 Blood Gas Modality NASAL CANNULA FiO2 35.0 Blood Gas Notified Whom [id number] Blood Gas Notified Time 04/30/2019 12:19:37 PM White Blood Count 8.2 Red Blood Count 2.88 L Hemoglobin 8.4 L Hematocrit 27.6 L Mean Corpuscular Volume 95.8 Mean Corpuscular Hemoglobin 29.2 Mean Corpuscular Hemoglobin Concent 30.4 L Red Cell Distribution Width 16.3 H Platelet Count 328 # Mean Platelet Volume 9.3 Immature Granulocytes % 1.100 H Neutrophils % 70.2 Lymphocytes % 17.2 Monocytes % 8.7 Eosinophils % 2.4 Basophils % 0.4 Nucleated Red Blood Cells % 0.5 H Immature Granulocytes # 0.090 H Neutrophils # 5.7 Lymphocytes # 1.4 Monocytes # 0.7 Eosinophils # 0.2 Basophils # 0.0 Nucleated Red Blood Cells # 0.0 Sodium Level 142 Potassium Level 3.5 Chloride Level 102 Carbon Dioxide Level 35 H Anion Gap 5 Blood Urea Nitrogen 16 Creatinine 1.16 Glucose Level 103 Calcium Level 8.4 Phosphorus Level 3.6 Magnesium Level 1.8 Albumin 3.3 Medications Current Medications Atorvastatin Calcium (Lipitor) 20 mg QHS PO Last administered on 04/30/19 21:06; Admin Dose 20 MG; Start 04/12/19 at 21:00 Ondansetron HCl (Zofran Inj) 4 mg Q6H PRN IV NAUSEA AND/OR VOMITING Last administered on 04/15/19at 16:27; Admin Dose 4 MG; Start 04/12/19 at 13:00 Acetaminophen (Tylenol Tab) 650 mg Q6H PRN PO PAIN LEVEL 1-3 OR FEVER Last administered on 05/01/19at 05:17; Admin Dose 650 MG; Start 04/12/19 at 13:00 Docusate Sodium (Colace) 100 mg Q12H PRN PO CONSTIPATION; Start 04/12/19 at 13:00 Magnesium Hydroxide (Milk Of Mag) 30 ml DAILY PRN PO CONSTIPATION; Start 04/12/19 at 13:00 Morphine Sulfate (morphine) 2 mg Q4H PRN IV SEVERE PAIN LEVEL 7-10 Last administered on 04/23/19 23:14; Admin Dose 2 MG; Start 04/13/19 at 23:30 IV Flush (NS 10 ml) 10 ml Q8 PRN IV IV PROTOCOL; Start 04/14/19 at 15:00 Lorazepam (Ativan) 1 mg Q6H PRN IV anxiety Last administered on 04/22/19 23:35; Admin Dose 1 MG; Start 04/14/19 at 15:00 Miscellaneous Information (Pending [facility] Order For Wound Care) This patient urias... PRN PRN XX WOUND CARE; Start 04/14/19 at 21:00 Amiodarone HCl (Cordarone) 400 mg TID PO Last administered on 04/17/19 13:10; Admin Dose 400 MG; Start 04/16/19 at 13:00; Status Hold Metoprolol Succinate (Toprol Xl) 100 mg BID PO Last administered on 05/01/19 08:36; Admin Dose 100 MG; Start 04/19/19 at 21:00 Albuterol/ Ipratropium (Duoneb) 3 ml Q6HWA RESP THERAPY HHN Last administered on 05/01/19 07:42; Admin Dose 3 ML; Start 04/20/19 at 20:00 Albuterol/ Ipratropium (Duoneb) 3 ml Q2H RESP THERAPY PRN HHN shortness of breath Last administered on 04/24/19 04:16; Admin Dose 3 ML; Start 04/20/19 at 15:00 Budesonide (Pulmicort (Neb)) 0.5 mg BID RESP THERAPY HHN Last administered on 05/01/19 07:53; Admin Dose 0.5 MG; Start 04/20/19 at 20:00 Silver Sulfadiazine (Thermazene 1% 25 Gm) 1 applic DAILY TOP Last administered on 05/01/19 08:37; Admin Dose 1 APPLIC; Start 04/22/19 at 12:00 Digoxin (Digoxin) 0.125 mg DAILY@13 PO Last administered on 04/30/19 16:03; Admin Dose 0.125 MG; Start 04/27/19 at 13:00 Bumetanide (Bumex) 1 mg BID PO Last administered on 05/01/19 08:36; Admin Dose 1 MG; Start 04/28/19 at 21:00 Pantoprazole (Protonix Tab) 40 mg BID PO Last administered on 05/01/19 08:36; Admin Dose 40 MG; Start 04/28/19 at 21:00 Guaifenesin/ Dextromethorphan (Robitussin Dm Liquid Cup) 5 ml Q4H PRN PO cou ghing Last administered on 04/29/19 04:15; Admin Dose 5 ML; Start 04/28/19 at 20:00 Mesalamine (Delzicol Dr) 800 mg TID PO Last administered on 05/01/19at 08:37; Admin Dose 800 MG; Start 04/29/19 at 21:00 Miscellaneous Information Patients own medicat... BID@10,16 XX ; Start 05/01/19 at 10:00 Losartan Potassium (Cozaar) 12.5 mg DAILY PO ; Start 05/02/19 at 09:00 Apixaban (Eliquis) 5 mg BID PO ; Start 05/01/19 at 12:00 Assessment/Plan Hospital Course (Demo Recall) IMP: 1. ADHF 2. HFrEF 3. ARF--likely cardiorenal 4. Afib with RVR 5. Ischemic Hepatopathy 2/2 #1 6. Hypoxemic Resp Failure 2/2 #1 7. Recent GI bleed RECS: Supplemental O2 as needed, decreased O2 noted. Resumption of anticoagulation and discharge planning to shelter facility dc planning Pending transfer to [facility] versus shelter facility OMER HANSON MD, [facility] May 01, 2019 11:54
[2019-05-01] MEDS: APIXABAN 5 MG TABLET PO SCH ×2 (12:29→20:36)
[2019-05-01] MEDS: DIGOXIN 0.125 MG TAB PO SCH (12:29)
--- NOTE | 2019-05-01 13:30 | CONS ---
Assessment/Plan Assessment/Plan Assessment/Plan (Daily) 1. Oliguric Acute kidney injury on CKD 2/2 Hemodynamics from CHF and atrial fibrillation RVR , also contributing ATN from sepsis 2. acute hypoxic respiratory failure requiring BIPAP due to Bilateral PNA and CHF 3. sepsis due to Bilateral PNA 4. Acute CHF exacerbation with EF 20% on ECHO, most likely new onset since pt has been denying any H/o CHF 5. New onset afib with RVR- on cardizem gtt 6. H/o HTN 7. H/o Sleep apnea 8. H/o Possible CKD but pt has been denying it.. His Renal Us showed normal echogenicity of kidneys but kidneys are small in size, The right kidney measures 9.5 cm. The left kidney measures 9.2 cm. 9. Moderate Right sided pleural effusion s/p R thoracentesis on 04/28/19- 850cc, removed, Plan: -BUN/Cr improved to 16/1.16, Na 142, HCO3- 35; other electrolytes stable- -UO voided x8 + 200ML /24 hr -s/p R thoracentesis on 04/28/19- 850cc, removed, -increase Bumex to 1mg PO BID- . Monitor electrolytes and replace as needed - Echo showed EF 20% wiht Moderate MR, moderate to severe TR, Enlarged RV and RVSP 52 - Amiodarone 400mg PO TID and metoprolol 100mg PO BID for rate control, eliquis for anticoagulation Patient seen in collaboration with Dr Delaney Perales. We will follow up. Consultation Date/Type/Reason Admit Date/Time Apr 12, 2019 at 12:21 Initial Consult Date 04/13/19 Type of Consult NEPHRO Requesting Provider: MARVIN FOX MD Date/Time of Note DATE: 05/01/19 TIME: 13:28 24 HR Interval Summary Free Text/Dictation nad afebrile feels better now uses BIPAP at night no events last night Constitutional: requiring O2 Detailed Summary Eyes: no complaints ENT: no complaints Respiratory: no complaints, other (uses BIPAP at night) Cardiovascular: no complaints Gastrointestinal: no complaints Genitourinary: no complaints Musculoskeletal: no complaints Skin: no complaints Neurologic: no complaints Endocrine: no complaints Psychological: nl mood/affect Exam/Review of Systems Exam Vitals Vital Signs Date Temp Pulse Resp B/P (MAP) Pulse Ox O2 O2 Flow FiO2 Time Delivery Rate 05/01/19 Nasal 2.0 08:49 Cannula 05/01/19 81 18 98 07:53 05/01/19 98.3 122/79 07:47 (93) 04/30/19 35 02:56 Intake and Output 04/30/19 04/30/19 05/01/19 1515:00 23:00 07:00 IntakeIntake Total 600 ml 1940 ml 340 ml OutputOutput Total 200 ml BalanceBalance 600 ml 1940 ml 140 ml Constitutional: alert, well developed Psych: nl mood/affect Head: normocephalic Eyes: nl lids, nl sclera ENMT: nl external ears & nose Neck: non-tender Respiratory: clear to auscultation (uses BIPAP at night) Cardiovascular: nl pulses, other (s1s2) Gastrointestinal: soft, non-tender Musculoskeletal: nl extremities to inspection Extremities: normal pulses Neurological: nl mental status, nl speech Skin: other (no skin nrash noted) Lymph: nontender Results Result Diagram: 05/01/19 0530 05/01/19 0530 Results 24hrs Laboratory Tests Test 05/01/19 05:30 White Blood Count 8.2 Red Blood Count 2.88 L Hemoglobin 8.4 L Hematocrit 27.6 L Mean Corpuscular Volume 95.8 Mean Corpuscular Hemoglobin 29.2 Mean Corpuscular Hemoglobin Concent 30.4 L Red Cell Distribution Width 16.3 H Platelet Count 328 # Mean Platelet Volume 9.3 Immature Granulocytes % 1.100 H Neutrophils % 70.2 Lymphocytes % 17.2 Monocytes % 8.7 Eosinophils % 2.4 Basophils % 0.4 Nucleated Red Blood Cells % 0.5 H Immature Granulocytes # 0.090 H Neutrophils # 5.7 Lymphocytes # 1.4 Monocytes # 0.7 Eosinophils # 0.2 Basophils # 0.0 Nucleated Red Blood Cells # 0.0 Sodium Level 142 Potassium Level 3.5 Chloride Level 102 Carbon Dioxide Level 35 H Anion Gap 5 Blood Urea Nitrogen 16 Creatinine 1.16 Glucose Level 103 Calcium Level 8.4 Phosphorus Level 3.6 Magnesium Level 1.8 Albumin 3.3 Medications Medication Current Medications Atorvastatin Calcium (Lipitor) 20 mg QHS PO Last administered on 04/30/19at 21: 06; Admin Dose 20 MG; Start 04/12/19 at 21:00 Ondansetron HCl (Zofran Inj) 4 mg Q6H PRN IV NAUSEA AND/OR VOMITING Last administered on 04/15/19 16:27; Admin Dose 4 MG; Start 04/12/19 at 13:00 Acetaminophen (Tylenol Tab) 650 mg Q6H PRN PO PAIN LEVEL 1-3 OR FEVER Last administered on 05/01/19 05:17; Admin Dose 650 MG; Start 04/12/19 at 13:00 Docusate Sodium (Colace) 100 mg Q12H PRN PO CONSTIPATION; Start 04/12/19 at 13:00 Magnesium Hydroxide (Milk Of Mag) 30 ml DAILY PRN PO CONSTIPATION; Start 04/12/19 at 13:00 Morphine Sulfate (morphine) 2 mg Q4H PRN IV SEVERE PAIN LEVEL 7-10 Last admini stered on 04/23/19 23:14; Admin Dose 2 MG; Start 04/13/19 at 23:30 IV Flush (NS 10 ml) 10 ml Q8 PRN IV IV PROTOCOL; Start 04/14/19 at 15:00 Lorazepam (Ativan) 1 mg Q6H PRN IV anxiety Last administered on 04/22/19 23:35; Admin Dose 1 MG; Start 04/14/19 at 15:00 [facility]isc[facility] This patient urias... PRN PRN XX WOUND CARE; Start 04/14/19 at 21:00 Amiodarone HCl (Cordarone) 400 mg TID PO Last administered on 04/17/19 13:10; Admin Dose 400 MG; Start 04/16/19 at 13:00; Status Hold Metoprolol Succinate (Toprol Xl) 100 mg BID PO Last administered on 05/01/19 08:36; Admin Dose 100 MG; Start 04/19/19 at 21:00 Albuterol/ Ipratropium (Duoneb) 3 ml Q6HWA RESP THERAPY HHN Last administered on 05/01/19 07:42; Admin Dose 3 ML; Start 04/20/19 at 20:00 Albuterol/ Ipratropium (Duoneb) 3 ml Q2H RESP THERAPY PRN HHN shortness of breath Last administered on 04/24/19 04:16; Admin Dose 3 ML; Start 04/20/19 at 15:00 Budesonide (Pulmicort (Neb)) 0.5 mg BID RESP THERAPY HHN Last administered on 05/01/19 07:53; Admin Dose 0.5 MG; Start 04/20/19 at 20:00 Silver Sulfadiazine (Thermazene 1% 25 Gm) 1 applic DAILY TOP Last administered on 05/01/19 08:37; Admin Dose 1 APPLIC; Start 04/22/19 at 12:00 Digoxin (Digoxin) 0.125 mg DAILY@13 PO Last administered on 05/01/19 12:29; Admin Dose 0.125 MG; Start 04/27/19 at 13:00 Bumetanide (Bumex) 1 mg BID PO Last administered on 05/01/19 08:36; Admin Dose 1 MG; Start 04/28/19 at 21:00 Pantoprazole (Protonix Tab) 40 mg BID PO Last administered on 05/01/19 08:36; Admin Dose 40 MG; Start 04/28/19 at 21:00 Guaifenesin/ Dextromethorphan (Robitussin Dm Liquid Cup) 5 ml Q4H PRN PO coughing Last administered on 04/29/19 04:15; Admin Dose 5 ML; Start 04/28/19 at 20:00 Mesalamine (Delzicol Dr) 800 mg TID PO Last administered on 05/01/19 12:29; Admin Dose 800 MG; Start 04/29/19 at 21:00 Miscellaneous Information Patients own medicat... BID@10,16 XX ; Start 05/01/19 at 10:00 Losartan Potassium (Cozaar) 12.5 mg DAILY PO ; Start 05/02/19 at 09:00 Apixaban (Eliquis) 5 mg BID PO Last administered on 05/01/19 12:29; Admin Dose 5 MG; Start 05/01/19 at 12:00 ABRAHAM LEYVA May 01, 2019 13:30
--- NOTE | 2019-05-01 15:58 | PN ---
Date/Time of Note Date/Time of Note DATE: 05/01/19 TIME: 15:51 Assessment/Plan VTE Prophylaxis Risk score (from Ns)>0 risk: 4 SCD applied (from Ns): Yes Pharmacological prophylaxis: NA/contraindicated Pharm contraindication: bleeding Lines/Catheters [facility] Central line still needed: Yes Urinary Cath still in place: No Assessment/Plan Assessment/Plan Assessment/Plan Ulceration nodularity in the cecum. Suspect for neoplastic process Hematochezia Colonoscopy 04/27/2019 Ulceration nodularity in the cecum. Suspect for neoplastic process. Biopsies obtained. 1 cm sessile polyp in the proximal rectum. Snared and retrieved. 8 mm sessile polyp in the rectum. Snared and retrieved. Mild diverticulosis. Acute on chronic anemia- 2/2 to above S/p Acute hypoxic respiratory failure- stable Bilateral pneumonia Leukocytosis Elevated Tropin -Likely 2/.2 to demand Acute systolic congestive heart failure- improving New onset Afib with RVR -Eliquis on hold DANYA- resolved Elevated LFT- improving- likely 2/2 to hemodynamic instability vs congestion -Hepatitis B Core AB- positive HTN Sleep apnea - on BIPAP qhs Plan: Pathology reviewed. Cecal biopsies negative for malignancy, 2 rectal adenomas Continue Delzicol 800 mg 3 times daily -continue for 3-month CEA- normal, 0.9 Repeat colonoscopy in 3-month Patient seen in collaboration with Dr. Devi Subjective: Patient is doing well. He denies abdominal pain, nausea vomiting, hematochezia or diarrhea. He is tolerating diet well. Hemoglobin is slowly trending up. Patient is on iron supplements. Discussed the treatment plan with mesalamine for the next 3 months and repeat colonoscopy in 3 months. Recommend repeat colonoscopy outpatient in about 3 months to ensure resolution. PHYSICAL EXAMINATION: GENERAL: Well developed, well nourished, alert & oriented x 3, in no acute distress SKIN: No lesions, no stigmata chronic liver disease, no evidence of bleeding diathesis LYMPHATIC: No palpable lymphadenopathy. HEAD: Normocephalic, atraumatic, no tenderness. EYES: Pupils equal reactive to light and accommodation, full extraocular movements, sclera clear, non-icteric, no discharge. EARS/NOSE AND THROAT: Ears normal, nose normal, oropharynx normal, oral membranes well hydrated without lesions. NECK: Supple, no masses, thyroid normal, JVP within normal limits, carotids normal without bruits. CHEST: Inspection within normal limits. CARDIOVASCULAR: Heart: Regular rate and rhythm, no murmurs, gallops or rubs. Peripheral pulses present within normal limits, no cyanosis, clubbing or edemas. No pulsatile abdominal mass RESPIRATORY: Lungs clear to auscultation and percussion, no wheezing, no rubs GASTROINTESTINAL AND LIVER: Abdomen: Soft, non tenderness, non-distended, no hernias, no masses, no organomegaly, no ascites, no guarding, no rebound tenderness, normoactive bowel sounds. Rectal: Deferred. GENITOURINARY: Male genitalia within normal limits. EXTREMITIES: No cyanosis, clubbing or edema. Result Diagram: 05/01/1930 05/01/19 0530 Results 24hrs Laboratory Tests Test 05/01/19 05:30 White Blood Count 8.2 Red Blood Count 2.88 L Hemoglobin 8.4 L Hematocrit 27.6 L Mean Corpuscular Volume 95.8 Mean Corpuscular Hemoglobin 29.2 Mean Corpuscular Hemoglobin Concent 30.4 L Red Cell Distribution Width 16.3 H Platelet Count 328 # Mean Platelet Volume 9.3 Immature Granulocytes % 1.100 H Neutrophils % 70.2 Lymphocytes % 17.2 Monocytes % 8.7 Eosinophils % 2.4 Basophils % 0.4 Nucleated Red Blood Cells % 0.5 H Immature Granulocytes # 0.090 H Neutrophils # 5.7 Lymphocytes # 1.4 Monocytes # 0.7 Eosinophils # 0.2 Basophils # 0.0 Nucleated Red Blood Cells # 0.0 Sodium Level 142 Potassium Level 3.5 Chloride Level 102 Carbon Dioxide Level 35 H Anion Gap 5 Blood Urea Nitrogen 16 Creatinine 1.16 Glucose Level 103 Calcium Level 8.4 Phosphorus Level 3.6 Magnesium Level 1.8 Albumin 3.3 CC: CAROLE DEVI MD ; Exam/Review of Systems Exam Vitals Vital Signs Date Temp Pulse Resp B/P (MAP) Pulse Ox O2 O2 Flow FiO2 Time Delivery Rate 05/01/19 Nasal 2.0 08:49 Cannula 05/01/19 81 18 98 07:53 05/01/19 98.3 122/79 07:47 (93) 04/30/19 35 02:56 Intake and Output 04/30/19 04/30/19 05/01/19 1515:00 23:00 07:00 IntakeIntake Total 600 ml 1940 ml 340 ml OutputOutput Total 200 ml BalanceBalance 600 ml 1940 ml 140 ml Results Results 24hrs Laboratory Tests Test 05/01/19 05:30 White Blood Count 8.2 Red Blood Count 2.88 L Hemoglobin 8.4 L Hematocrit 27.6 L Mean Corpuscular Volume 95.8 Mean Corpuscular Hemoglobin 29.2 Mean Corpuscular Hemoglobin Concent 30.4 L Red Cell Distribution Width 16.3 H Platelet Count 328 # Mean Platelet Volume 9.3 Immature Granulocytes % 1.100 H Neutrophils % 70.2 Lymphocytes % 17.2 Monocytes % 8.7 Eosinophils % 2.4 Basophils % 0.4 Nucleated Red Blood Cells % 0.5 H Immature Granulocytes # 0.090 H Neutrophils # 5.7 Lymphocytes # 1.4 Monocytes # 0.7 Eosinophils # 0.2 Basophils # 0.0 Nucleated Red Blood Cells # 0.0 Sodium Level 142 Potassium Level 3.5 Chloride Level 102 Carbon Dioxide Level 35 H Anion Gap 5 Blood Urea Nitrogen 16 Creatinine 1.16 Glucose Level 103 Calcium Level 8.4 Phosphorus Level 3.6 Magnesium Level 1.8 Albumin 3.3 Medications Medication Current Medications Atorvastatin Calcium (Lipitor) 20 mg QHS PO Last administered on 04/30/19at 21:06; Admin Dose 20 MG; Start 04/12/19 at 21:00 Ondansetron HCl (Zofran Inj) 4 mg Q6H PRN IV NAUSEA AND/OR VOMITING Last administered on 04/15/19at 16:27; Admin Dose 4 MG; Start 04/12/19 at 13:00 Acetaminophen (Tylenol Tab) 650 mg Q6H PRN PO PAIN LEVEL 1-3 OR FEVER Last administered on 05/01/19at 05:17; Admin Dose 650 MG; Start 04/12/19 at 13:00 Docusate Sodium (Colace) 100 mg Q12H PRN PO CONSTIPATION; Start 04/12/19 at 13:00 Magnesium Hydroxide (Milk Of Mag) 30 ml DAILY PRN PO CONSTIPATION; Start 04/12/19 at 13:00 Morphine Sulfate (morphine) 2 mg Q4H PRN IV SEVERE PAIN LEVEL 7-10 Last administered on 04/23/19at 23:14; Admin Dose 2 MG; Start 04/13/19 at 23:30 IV Flush (NS 10 ml) 10 ml Q8 PRN IV IV PROTOCOL; Start 04/14/19 at 15:00 Lorazepam (Ativan) 1 mg Q6H PRN IV anxiety Last administered on 04/22/19 23:35; Admin Dose 1 MG; Start 04/14/19 at 15:00 Miscellaneous Information (Pending Santyl Order For Wound Care) This patient urias... PRN PRN XX WOUND CARE; Start 04/14/19 at 21:00 Amiodarone HCl (Cordarone) 400 mg TID PO Last administered on 04/17/19 13:10; Admin Dose 400 MG; Start 04/16/19 at 13:00; Status Hold Metoprolol Succinate (Toprol Xl) 100 mg BID PO Last administered on 05/01/19 08:36; Admin Dose 100 MG; Start 04/19/19 at 21:00 Albuterol/ Ipratropium (Duoneb) 3 ml Q6HWA RESP THERAPY HHN Last administered on 05/01/19 07:42; Admin Dose 3 ML; Start 04/20/19 at 20:00 Albuterol/ Ipratropium (Duoneb) 3 ml Q2H RESP THERAPY PRN HHN shortness of breath Last administered on 04/24/19 04:16; Admin Dose 3 ML; Start 04/20/19 at 15:00 Budesonide (Pulmicort (Neb)) 0.5 mg BID RESP THERAPY HHN Last administered on 05/01/19 07:53; Admin Dose 0.5 MG; Start 04/20/19 at 20:00 Silver Sulfadiazine (Thermazene 1% 25 Gm) 1 applic DAILY TOP Last administered on 05/01/19 08:37; Admin Dose 1 APPLIC; Start 04/22/19 at 12:00 Digoxin (Digoxin) 0.125 mg DAILY@13 PO Last administered on 05/01/19 12:29; Admin Dose 0.125 MG; Start 04/27/19 at 13:00 Bumetanide (Bumex) 1 mg BID PO Last administered on 05/01/19 08:36; Admin Dose 1 MG; Start 04/28/19 at 21:00 Pantoprazole (Protonix Tab) 40 mg BID PO Last administered on 05/01/19 08:36; Admin Dose 40 MG; Start 04/28/19 at 21:00 Guaifenesin/ Dextromethorphan (Robitussin Dm Liquid Cup) 5 ml Q4H PRN PO coughing Last administered on 04/29/19at 04:15; Admin Dose 5 ML; Start 04/28/19 at 20:00 Mesalamine (Delzicol Dr) 800 mg TID PO Last administered on 05/01/19at 12:29; Admin Dose 800 MG; Start 04/29/19 at 21:00 Miscellaneous Information Patients own medicat... BID@10,16 XX ; Start 05/01/19 at 10:00 Losartan Potassium (Cozaar) 12.5 mg DAILY PO ; Start 05/02/19 at 09:00 Apixaban (Eliquis) 5 mg BID PO Last administered on 05/01/19at 12:29; Admin Dose 5 MG; Start 05/01/19 at 12:00 LYNNE GRANT NP May 01, 2019 15:58
[2019-05-01 20:00] VITALS: BP 114/65; PULSE 80; RESP 17
[2019-05-01] MEDS: ATORVASTATIN 20 MG TAB PO SCH (20:36)
[2019-05-01 20:42] VITALS: BP 114/62; PULSE 97
[2019-05-01 22:11] VITALS: PULSE 65
[2019-05-01 23:26] VITALS: PULSE 61
[2019-05-02 02:00] VITALS: BP 111/81; PULSE 65; RESP 17
[2019-05-02] MEDS: ALBUTEROL/IPRATROPIUM (NEB) 3 ML AMP HHN SCH ×3 (07:21→19:32)
[2019-05-02] MEDS: BUDESONIDE (NEB) 0.5MG/2ML AMP HHN SCH ×2 (07:21→19:32)
[2019-05-02 08:20] VITALS: BP 125/93; PULSE 74; RESP 18
[2019-05-02] MEDS: PANTOPRAZOLE (EC) 40 MG TAB PO SCH ×2 (09:41→20:40)
[2019-05-02] MEDS: APIXABAN 5 MG TABLET PO SCH ×2 (09:41→20:38)
[2019-05-02] MEDS: LOSARTAN 25 MG TAB PO SCH (09:41)
[2019-05-02] MEDS: METOPROLOL (XL) 100 MG TAB PO SCH ×2 (09:42→20:40)
[2019-05-02] MEDS: MESALAMINE (EC) 400 MG CAP PO SCH ×3 (09:42→20:38)
[2019-05-02] MEDS: BUMETANIDE 1 MG TAB PO SCH ×2 (09:42→20:38)
[2019-05-02] MEDS: SILVER SULFADIAZINE 1% 25 GM CR TOP SCH (09:43)
--- NOTE | 2019-05-02 10:00 | CONS ---
Consultation Date/Type/Reason Admit Date/Time Apr 12, 2019 at 12:21 Initial Consult Date 04/13/19 Type of Consult Pulmonary/critical care Patient is a 63-year-old [place] gentleman who came into the hospital with history of shortness of breath for the last 1 day. Patient denied having any chest pain, any fever, wheezing or any sputum production. Upon evaluation patient was found to be in A. fib with RVR. Patient has been rate controlled. By the time I saw the patient in ICU, patient is sitting comfortably in bed and denied having any shortness of breath, rest pain, or any other symptoms. Past medical history; 1. History of apparent chronic renal insufficiency. 2. History of hypertension. Medications; reviewed. Allergies; none. Social history; patient never smoked. Occupational history; patient is retired. Family history; noncontributory. Review of systems; denies any headache, chest pain, shortness of breath has improved. Denies any coughing, wheezing, sputum production or fever. Denies any abdominal pain, nausea vomiting. Any orthopnea. General exam; elderly male, laying comfortably in bed. Currently in no distress. Requesting Provider: MARVIN FOX MD Date/Time of Note DATE: 05/02/19 TIME: 09:58 24 HR Interval Summary Free Text/Dictation Patient's condition is a stable. Denies any shortness of breath. General exam; elderly male, awake alert, currently in no distress. H ENT exam; supple neck, positive JVD. No lymphadenopathy. Midline trachea. No thyromegaly. Patient has few missing teeth. No neck masses. Chest exam; clear to auscultation. S1-S2 audible, no murmurs. Irregular rhythm. Abdomen exam; soft, nontender. No organomegaly. Bowel sounds are audible. Extremity exam; no peripheral edema clubbing. BRINELL TESTER exam; no focal deficit. Assessment and recommendations; 1. Patient admitted with A. fib with RVR with CHF exacerbation with significant interval clinical improvement. 2. Mild renal insufficiency with improving renal function. 3. Improving hypoxemia. Continue current supportive care. Consider discharge. Wean down FiO2 to keep O2 saturation around 92%. Exam/Review of Systems Exam Vitals Vital Signs Date Temp Pulse Resp B/P (MAP) Pulse Ox O2 O2 Flow FiO2 Time Delivery Rate 05/02/19 Nasal 2.0 08:38 Cannula 05/02/19 98.4 74 18 125/93 98 08:20 (104) 05/01/19 35 23:26 Intake and Output 05/01/19 05/01/19 05/02/19 1515:00 23:00 07:00 IntakeIntake Total 240 ml 1200 ml BalanceBalance 240 ml 1200 ml Results Result Diagram: 05/01/19 0530 05/01/19 0530 Medications Medication Current Medications Atorvastatin Calcium (Lipitor) 20 mg QHS PO Last administered on 05/01/19at 20:36; Admin Dose 20 MG; Start 04/12/19 at 21:00 Ondansetron HCl (Zofran Inj) 4 mg Q6H PRN IV NAUSEA AND/OR VOMITING Last administered on 04/15/19 16:27; Admin Dose 4 MG; Start 04/12/19 at 13:00 Acetaminophen (Tylenol Tab) 650 mg Q6H PRN PO PAIN LEVEL 1-3 OR FEVER Last administered on 05/01/19 05:17; Admin Dose 650 MG; Start 04/12/19 at 13:00 Docusate Sodium (Colace) 100 mg Q12H PRN PO CONSTIPATION; Start 04/12/19 at 13:00 Magnesium Hydroxide (Milk Of Mag) 30 ml DAILY PRN PO CONSTIPATION; Start 04/12/19 at 13:00 Morphine Sulfate (morphine) 2 mg Q4H PRN IV SEVERE PAIN LEVEL 7-10 Last administered on 04/23/19 23:14; Admin Dose 2 MG; Start 04/13/19 at 23:30 IV Flush (NS 10 ml) 10 ml Q8 PRN IV IV PROTOCOL; Start 04/14/19 at 15:00 Lorazepam (Ativan) 1 mg Q6H PRN IV anxiety Last administered on 04/22/19 23:35; Admin Dose 1 MG; Start 04/14/19 at 15:00 Miscellaneous Information (Pending Santyl Order For Wound Care) This patient urias... PRN PRN XX WOUND CARE; Start 04/14/19 at 21:00 Amiodarone HCl (Cordarone) 400 mg TID PO Last administered on 04/17/19 13:10; Admin Dose 400 MG; Start 04/16/19 at 13:00; Status Hold Metoprolol Succinate (Toprol Xl) 100 mg BID PO Last administered on 05/02/19 09:42; Admin Dose 100 MG; Start 04/19/19 at 21:00 Albuterol/ Ipratropium (Duoneb) 3 ml Q6HWA RESP THERAPY HHN Last administered on 05/02/19 07:21; Admin Dose 3 ML; Start 04/20/19 at 20:00 Albuterol/ Ipratropium (Duoneb) 3 ml Q2H RESP THERAPY PRN HHN shortness of breath Last administered on 04/24/19 04:16; Admin Dose 3 ML; Start 04/20/19 at 15:00 Budesonide (Pulmicort (Neb)) 0.5 mg BID RESP THERAPY HHN Last administered on 05/02/19 07:21; Admin Dose 0.5 MG; Start 04/20/19 at 20:00 Silver Sulfadiazine (Thermazene 1% 25 Gm) 1 applic DAILY TOP Last administered on 05/02/19 09:43; Admin Dose 1 APPLIC; Start 04/22/19 at 12:00 Digoxin (Digoxin) 0.125 mg DAILY@13 PO Last administered on 05/01/19 12:29; Admin Dose 0.125 MG; Start 04/27/19 at 13:00 Bumetanide (Bumex) 1 mg BID PO Last administered on 05/02/19 09:42; Admin Dose 1 MG; Start 04/28/19 at 21:00 Pantoprazole (Protonix Tab) 40 mg BID PO Last administered on 05/02/19 09:41; Admin Dose 40 MG; Start 04/28/19 at 21:00 Guaifenesin/ Dextromethorphan (Robitussin Dm Liquid Cup) 5 ml Q4H PRN PO coughing Last administered on 04/29/19 04:15; Admin Dose 5 ML; Start 04/28/19 at 20:00 Mesalamine (Delzicol Dr) 800 mg TID PO Last administered on 05/02/19 09:42; Admin Dose 800 MG; Start 04/29/19 at 21:00 Miscellaneous Information Patients own medicat... BID@10,16 XX ; Start 05/01/19 at 10:00 Losartan Potassium (Cozaar) 12.5 mg DAILY PO Last administered on 05/02/19 09:41; Admin Dose 12.5 MG; Start 05/02/19 at 09:00 Apixaban (Eliquis) 5 mg BID PO Last administered on 05/02/19 09:41; Admin Dose 5 MG; Start 05/01/19 at 12:00 BONI BAER May 02, 2019 10:00
[2019-05-02] MEDS: ACETAMINOPHEN 325 MG TAB PO PRN (10:45)
--- NOTE | 2019-05-02 11:42 | CONS ---
Assessment/Plan Assessment/Plan Hospital Course (Demo Recall) 1. Oliguric Acute kidney injury on CKD 2/2 Hemodynamics from CHF and atrial fibrillation RVR , also contributing ATN from sepsis 2. acute hypoxic respiratory failure requiring BIPAP due to Bilateral PNA and CHF 3. sepsis due to Bilateral PNA 4. Acute CHF exacerbation with EF 20% on ECHO, most likely new onset since pt has been denying any H/o CHF 5. New onset afib with RVR- on cardizem gtt 6. H/o HTN 7. H/o Sleep apnea 8. H/o Possible CKD but pt has been denying it.. His Renal Us showed normal echogenicity of kidneys but kidneys are small in size, The right kidney measures 9.5 cm. The left kidney measures 9.2 cm. 9. Moderate Right sided pleural effusion s/p R thoracentesis on 04/28/19- 850cc, removed, Plan: -BUN/Cr improved to 20/1.19, Na 139, K 3.4- no labs today to review yet -s/p R thoracentesis on 04/28/19- 850cc, Conitnue Bumex to 1mg PO BID- . Monitor electrolytes and replace as needed Echo showed EF 20% wiht Moderate MR, moderate to severe TR, Enlarged RV and RVSP 52 Amiodarone 400mg PO TID and metoprolol 100mg PO BID for rate conrol, eliquis for anticoagulation will follow up Consultation Date/Type/Reason Admit Date/Time Apr 12, 2019 at 12:21 Initial Consult Date 04/13/19 Type of Consult NEPHROLOGY Requesting Provider: MARVIN FOX MD Date/Time of Note DATE: 05/02/19 TIME: 11:42 Exam/Review of Systems Exam Vitals Vital Signs Date Temp Pulse Resp B/P (MAP) Pulse Ox O2 O2 Flow FiO2 Time Delivery Rate 05/02/19 98.0 10:45 05/02/19 Nasal 2.0 08:38 Cannula 05/02/19 74 18 125/93 98 08:20 (104) 05/01/19 35 23:26 Intake and Output 05/01/19 05/01/19 05/02/19 1515:00 23:00 07:00 IntakeIntake Total 240 ml 1200 ml BalanceBalance 240 ml 1200 ml Results Result Diagram: 05/01/19 0530 05/01/19 0530 Medications Medication Current Medications Atorvastatin Calcium (Lipitor) 20 mg QHS PO Last administered on 05/01/19 20:36; Admin Dose 20 MG; Start 04/12/19 at 21:00 Ondansetron HCl (Zofran Inj) 4 mg Q6H PRN IV NAUSEA AND/OR VOMITING Last administered on 04/15/19 16:27; Admin Dose 4 MG; Start 04/12/19 at 13:00 Acetaminophen (Tylenol Tab) 650 mg Q6H PRN PO PAIN LEVEL 1-3 OR FEVER Last administered on 05/02/19 10:45; Admin Dose 650 MG; Start 04/12/19 at 13:00 Docusate Sodium (Colace) 100 mg Q12H PRN PO CONSTIPATION; Start 04/12/19 at 13:00 Magnesium Hydroxide (Milk Of Mag) 30 ml DAILY PRN PO CONSTIPATION; Start 04/12/19 at 13:00 Morphine Sulfate (morphine) 2 mg Q4H PRN IV SEVERE PAIN LEVEL 7-10 Last administered on 04/23/19 23:14; Admin Dose 2 MG; Start 04/13/19 at 23:30 IV Flush (NS 10 ml) 10 ml Q8 PRN IV IV PROTOCOL; Start 04/14/19 at 15:00 Lorazepam (Ativan) 1 mg Q6H PRN IV anxiety Last administered on 04/22/19 23:35; Admin Dose 1 MG; Start 04/14/19 at 15:00 [facility] This patient urias... PRN PRN XX WOUND CARE; Start 04/14/19 at 21:00 Amiodarone HCl (Cordarone) 400 mg TID PO Last administered on 04/17/19 13:10; Admin Dose 400 MG; Start 04/16/19 at 13:00; Status Hold Metoprolol Succinate (Toprol Xl) 100 mg BID PO Last administered on 05/02/19 09:42; Admin Dose 100 MG; Start 04/19/19 at 21:00 Albuterol/ Ipratropium (Duoneb) 3 ml Q6HWA RESP THERAPY HHN Last administered on 05/02/19 07:21; Admin Dose 3 ML; Start 04/20/19 at 20:00 Albuterol/ Ipratropium (Duoneb) 3 ml Q2H RESP THERAPY PRN HHN shortness of breath Last administered on 04/24/19 04:16; Admin Dose 3 ML; Start 04/20/19 at 15:00 Budesonide (Pulmicort (Neb)) 0.5 mg BID RESP THERAPY HHN Last administered on 05/02/19 07:21; Admin Dose 0.5 MG; Start 04/20/19 at 20:00 Silver Sulfadiazine (Thermazene 1% 25 Gm) 1 applic DAILY TOP Last administered on 05/02/19 09:43; Admin Dose 1 APPLIC; Start 04/22/19 at 12:00 Digoxin (Digoxin) 0.125 mg DAILY@13 PO Last administered on 05/01/19 12:29; Admin Dose 0.125 MG; Start 04/27/19 at 13:00 Bumetanide (Bumex) 1 mg BID PO Last administered on 05/02/19 09:42; Admin Dose 1 MG; Start 04/28/19 at 21:00 Pantoprazole (Protonix Tab) 40 mg BID PO Last administered on 05/02/19 09:41; Admin Dose 40 MG; Start 04/28/19 at 21:00 Guaifenesin/ Dextromethorphan (Robitussin Dm Liquid Cup) 5 ml Q4H PRN PO coughing Last administered on 04/29/19 04:15; Admin Dose 5 ML; Start 04/28/19 at 20:00 Mesalamine (Delzicol Dr) 800 mg TID PO Last administered on 05/02/19 09:42; Admin Dose 800 MG; Start 04/29/19 at 21:00 Miscellaneous Information Patients own medicat... BID@10,16 XX ; Start 05/01/19 at 10:00 Losartan Potassium (Cozaar) 12.5 mg DAILY PO Last administered on 05/02/19 09:41; Admin Dose 12.5 MG; Start 05/02/19 at 09:00 Apixaban (Eliquis) 5 mg BID PO Last administered on 05/02/19 09:41; Admin Dose 5 MG; Start 05/01/19 at 12:00 RYAN VICENTE MD May 02, 2019 11:42
--- NOTE | 2019-05-02 11:56 | PN ---
Date/Time of Note Date/Time of Note DATE: 05/02/19 TIME: 11:55 Objective Vitals Vital Signs Date Temp Pulse Resp B/P (MAP) Pulse Ox O2 O2 Flow FiO2 Time Delivery Rate 05/02/19 98.0 10:45 05/02/19 Nasal 2.0 08:38 Cannula 05/02/19 74 18 125/93 98 08:20 (104) 05/01/19 35 23:26 Intake and Output 05/01/19 05/01/19 05/02/19 1414:59 22:59 06:59 IntakeIntake Total 240 ml 1200 ml BalanceBalance 240 ml 1200 ml Results Result Diagram: 05/01/1952905/01/19 05 Medications Medications Current Medications Atorvastatin Calcium (Lipitor) 20 mg QHS PO Last administered on 05/01/19at 20 :36; Admin Dose 20 MG; Start 04/12/19 at 21:00 Ondansetron HCl (Zofran Inj) 4 mg Q6H PRN IV NAUSEA AND/OR VOMITING Last administered on 04/15/19at 16:27; Admin Dose 4 MG; Start 04/12/19 at 13:00 Acetaminophen (Tylenol Tab) 650 mg Q6H PRN PO PAIN LEVEL 1-3 OR FEVER Last administered on 05/02/19at 10:45; Admin Dose 650 MG; Start 04/12/19 at 13:00 Docusate Sodium (Colace) 100 mg Q12H PRN PO CONSTIPATION; Start 04/12/19 at 13:00 Magnesium Hydroxide (Milk Of Mag) 30 ml DAILY PRN PO CONSTIPATION; Start 04/12/19 at 13:00 Morphine Sulfate (morphine) 2 mg Q4H PRN IV SEVERE PAIN LEVEL 7-10 Last admin istered on 04/23/19at 23:14; Admin Dose 2 MG; Start 04/13/19 at 23:30 IV Flush (NS 10 ml) 10 ml Q8 PRN IV IV PROTOCOL; Start 04/14/19 at 15:00 Lorazepam (Ativan) 1 mg Q6H PRN IV anxiety Last administered on 04/22/19 23:35; Admin Dose 1 MG; Start 04/14/19 at 15:00 [facility] This patient urias... PRN PRN XX WOUND CARE; Start 04/14/19 at 21:00 Amiodarone HCl (Cordarone) 400 mg TID PO Last administered on 04/17/19 13:10; Admin Dose 400 MG; Start 04/16/19 at 13:00; Status Hold Metoprolol Succinate (Toprol Xl) 100 mg BID PO Last administered on 05/02/19 09:42; Admin Dose 100 MG; Start 04/19/19 at 21:00 Albuterol/ Ipratropium (Duoneb) 3 ml Q6HWA RESP THERAPY HHN Last administered on 05/02/19 07:21; Admin Dose 3 ML; Start 04/20/19 at 20:00 Albuterol/ Ipratropium (Duoneb) 3 ml Q2H RESP THERAPY PRN HHN shortness of breath Last administered on 04/24/19 04:16; Admin Dose 3 ML; Start 04/20/19 at 15:00 Budesonide (Pulmicort (Neb)) 0.5 mg BID RESP THERAPY HHN Last administered on 05/02/19 07:21; Admin Dose 0.5 MG; Start 04/20/19 at 20:00 Silver Sulfadiazine (Thermazene 1% 25 Gm) 1 applic DAILY TOP Last administered on 05/02/19 09:43; Admin Dose 1 APPLIC; Start 04/22/19 at 12:00 Digoxin (Digoxin) 0.125 mg DAILY@13 PO Last administered on 05/01/19 12:29; Admin Dose 0.125 MG; Start 04/27/19 at 13:00 Bumetanide (Bumex) 1 mg BID PO Last administered on 05/02/19 09:42; Admin Dose 1 MG; Start 04/28/19 at 21:00 Pantoprazole (Protonix Tab) 40 mg BID PO Last administered on 05/02/19 09:41; Admin Dose 40 MG; Start 04/28/19 at 21:00 Guaifenesin/ Dextromethorphan (Robitussin Dm Liquid Cup) 5 ml Q4H PRN PO coughing Last administered on 04/29/19 04:15; Admin Dose 5 ML; Start 04/28/19 at 20:00 Mesalamine (Delzicol Dr) 800 mg TID PO Last administered on 8/12/19at 09:42; Admin Dose 800 MG; Start 04/29/19 at 21:00 Miscellaneous Information Patients own medicat... BID@10,16 XX ; Start 05/01/19 at 10:00 Losartan Potassium (Cozaar) 12.5 mg DAILY PO Last administered on 05/02/19at 09:41; Admin Dose 12.5 MG; Start 05/02/19 at 09:00 Apixaban (Eliquis) 5 mg BID PO Last administered on 05/02/19at 09:41; Admin Dose 5 MG; Start 05/01/19 at 12:00 Acetaminophen/ Hydrocodone Bitart ([place] (5/325)) 1 tab Q4H PRN PO MODERATE PAIN LEVEL 4-6; Start 05/02/19 at 12:00 VTE Prophylaxis Risk score (from Ns)>0 risk: 5 SCD applied (from Ns): No SCD contraindication: other Lines/Catheters IV Catheter Type: Cárdenas in Place: No Assessment/Plan Hospital Course Subjective Other than mild headache, no acute complaints, no rectal bleeding Objective Physical exam General: Patient is laying in bed and answers questions appropriately Mentation: Patient is alert and oriented 4, Head: Normocephalic atraumatic Eyes: EOMI, pupils reactive to light Neck: Supple, nontender, midline Respiratory: Clear to auscultation bilaterally Cardiovascular: regular rate, no obvious murmurs Gastrointestinal: non-tender to palpation, bowel sounds heard. Neurological: Moves all extremities spontaneously Skin: No new skin lesions Assessment/Plan 1. Ulcerations in cecum - GI on board and appreciate recommendations. bx results noted with no malignancy seen. CEA negative. Started on mesalamine for 3 months and will need repeat colonoscopy at that time - s/p colonoscopy 04/27 - CT scan noted with thickening of cecum. Results discussed with patient 2. Acute GI bleeding- resolved - hgb stable - colonoscopy performed 04/27 - GI on board and appreciate consultation. 3. Acute hypoxic respiratory failure- stable - wean down O2 as tolerated. Now on 2L - Pulm consultation appreciated. - Nebs PRN 4. Acute systolic congestive heart failure- stable - BNP noted - Cardiology on board and appreciate recommendations - Nephrology on board for management of diuretics. Will continue on Bumex - monitor I/O and daily weights - ECHO results noted with low EF 5. New onset afib with RVR- stable - doing well on digoxin - on BB - Cardiology consultation appreciated - Eliquis restarted 8.., hold if further bleeding. 6. DANYA on CKD- stable - Nephrology consultation appreciated - US results noted - renally dose medications 7. Bilateral pneumonia- resolved - seen on CXR - ID consultation appreciated and d/c antibiotics. will monitor off antibiotics per ID recs - continue Neb tx PRN 8. Elevated trop, stable, no chest pain - most likely type 2 demand - will need stress test when stable either inpatient or outpatient and possible PCI in future - no chest pain noted 9. Sleep apnea - on BIPAP qhs 10. HTN - will decrease losartan dose by half given low BP - continue BB given elevated HR at times 11. Pleural effusion s/p thoracentesis 04/28 - doing well post thora after 850 cc removed - respiratory status improving after procedure. Now only on 2L 12. Disposition - Continue weaning O2 as tolerated - Will cont Eliquis and monitor for any GI bleeding - Cm on board for assistance with placement to SNF. Evaluation pending for Josh but patients respiratory status continues to improve so may not qualify LUIS CARLOS KENYON May 02, 2019 11:55
[2019-05-02] MEDS ORDERED: HYDROCODONE/APAP (5/325) TAB PO PRN (12:00)
[2019-05-02] MEDS ORDERED: POTASSIUM CHLORIDE (SR) 20 MEQ TAB PO STA (12:59)
--- NOTE | 2019-05-02 13:01 | CONS ---
Assessment/Plan Cardiology NYHA: IV Heart Failure Type: Acute Heart Failure Type: Both Assessment/Plan Hospital Course (Demo Recall) Atrial fibrillation Acute decompensated systolic congestive heart failure, improved Cardia myopathy Mitral and tricuspid valve regurgitation GI bleed Continue ARB and titrate as tolerated Diuretics as per nephrology Titrate beta-elsa as needed for heart rate control Continue anticoagulation as tolerated DC planning Consultation Date/Type/Reason Admit Date/Time Apr 12, 2019 at 12:21 Initial Consult Date 04/25/19 Type of Consult Cardiology Requesting Provider: MARVIN FOX MD Date/Time of Note DATE: 05/02/19 TIME: 13:00 24 HR Interval Summary Free Text/Dictation No shortness of breath, chest pain or palpitations Exam/Review of Systems Vital Signs Vitals Vital Signs Date Temp Pulse Resp B/P (MAP) Pulse Ox O2 O2 Flow FiO2 Time Delivery Rate 05/02/19 98.0 10:45 05/02/19 Nasal 2.0 08:38 Cannula 05/02/19 74 18 125/93 98 08:20 (104) 05/01/19 35 23:26 Intake and Output 05/01/19 05/01/19 05/02/19 1515:00 23:00 07:00 IntakeIntake Total 240 ml 1200 ml BalanceBalance 240 ml 1200 ml Exam Constitutional: alert, oriented Respiratory: other (Coarse breath sounds, scattered mild crackles) Cardiovascular: irregular rhythm (S1-S2 heard) Gastrointestinal: soft, non-tender, bowel sounds Extremities: edema (Trace) Labs Result Diagram: 05/01/19 0530 05/01/19 0530 Medications Medications Current Medications Atorvastatin Calcium (Lipitor) 20 mg QHS PO Last administered on 05/01/19at 20:36; Admin Dose 20 MG; Start 04/12/19 at 21:00 Ondansetron HCl (Zofran Inj) 4 mg Q6H PRN IV NAUSEA AND/OR VOMITING Last administered on 04/15/19at 16:27; Admin Dose 4 MG; Start 04/12/19 at 13:00 Acetaminophen (Tylenol Tab) 650 mg Q6H PRN PO PAIN LEVEL 1-3 OR FEVER Last administered on 05/02/19at 10:45; Admin Dose 650 MG; Start 04/12/19 at 13:00 Docusate Sodium (Colace) 100 mg Q12H PRN PO CONSTIPATION; Start 04/12/19 at 13:00 Magnesium Hydroxide (Milk Of Mag) 30 ml DAILY PRN PO CONSTIPATION; Start 04/12/19 at 13:00 Morphine Sulfate (morphine) 2 mg Q4H PRN IV SEVERE PAIN LEVEL 7-10 Last administered on 04/23/19 23:14; Admin Dose 2 MG; Start 04/13/19 at 23:30 IV Flush (NS 10 ml) 10 ml Q8 PRN IV IV PROTOCOL; Start 04/14/19 at 15:00 Lorazepam (Ativan) 1 mg Q6H PRN IV anxiety Last administered on 04/22/19 23:35; Admin Dose 1 MG; Start 04/14/19 at 15:00 [facility] This patient urias... PRN PRN XX WOUND CARE; Start 04/14/19 at 21:00 Amiodarone HCl (Cordarone) 400 mg TID PO Last administered on 04/17/19 13:10; Admin Dose 400 MG; Start 04/16/19 at 13:00; Status Hold Metoprolol Succinate (Toprol Xl) 100 mg BID PO Last administered on 05/02/19 09:42; Admin Dose 100 MG; Start 04/19/19 at 21:00 Albuterol/ Ipratropium (Duoneb) 3 ml Q6HWA RESP THERAPY HHN Last administered on 05/02/19 07:21; Admin Dose 3 ML; Start 04/20/19 at 20:00 Albuterol/ Ipratropium (Duoneb) 3 ml Q2H RESP THERAPY PRN HHN shortness of breath Last administered on 04/24/19 04:16; Admin Dose 3 ML; Start 04/20/19 at 15:00 Budesonide (Pulmicort (Neb)) 0.5 mg BID RESP THERAPY HHN Last administered on 05/02/19 07:21; Admin Dose 0.5 MG; Start 04/20/19 at 20:00 Silver Sulfadiazine (Thermazene 1% 25 Gm) 1 applic DAILY TOP Last administered on 05/02/19 09:43; Admin Dose 1 APPLIC; Start 04/22/19 at 12:00 Digoxin (Digoxin) 0.125 mg DAILY@13 PO Last administered on 05/01/19 12:29; Admin Dose 0.125 MG; Start 04/27/19 at 13:00 Bumetanide (Bumex) 1 mg BID PO Last administered on 05/02/19 09:42; Admin Dose 1 MG; Start 04/28/19 at 21:00 Pantoprazole (Protonix Tab) 40 mg BID PO Last administered on 05/02/19 09:41; Admin Dose 40 MG; Start 04/28/19 at 21:00 Guaifenesin/ Dextromethorphan (Robitussin Dm Liquid Cup) 5 ml Q4H PRN PO coughing Last administered on 04/29/19 04:15; Admin Dose 5 ML; Start 04/28/19 at 20:00 Mesalamine (Delzicol Dr) 800 mg TID PO Last administered on 05/02/19 09:42; Admin Dose 800 MG; Start 04/29/19 at 21:00 Miscellaneous Information Patients own medicat... BID@10,16 XX ; Start 05/01/19 at 10:00 Losartan Potassium (Cozaar) 12.5 mg DAILY PO Last administered on 05/02/19 09:41; Admin Dose 12.5 MG; Start 05/02/19 at 09:00 Apixaban (Eliquis) 5 mg BID PO Last administered on 05/02/19 09:41; Admin Dose 5 MG; Start 05/01/19 at 12:00 Acetaminophen/ Hydrocodone Bitart ([place] (5/325)) 1 tab Q4H PRN PO MODERATE P AIN LEVEL 4-6; Start 05/02/19 at 12:00 Christian Araujo DO May 02, 2019 13:01
[2019-05-02] MEDS ORDERED: MAGNESIUM SULFATE 2 GM/50 ML 50 ML IVPB ONE (13:30)
[2019-05-02] MEDS: DIGOXIN 0.125 MG TAB PO SCH (13:36)
[2019-05-02 14:18] VITALS: BP 118/65; PULSE 81; RESP 16
[2019-05-02 20:00] VITALS: BP 129/81; PULSE 84; RESP 18
[2019-05-02] MEDS: ATORVASTATIN 20 MG TAB PO SCH (20:40)
[2019-05-03 02:15] VITALS: BP 101/66; PULSE 62; RESP 18
[2019-05-03 04:16] VITALS: PULSE 63
[2019-05-03 05:10] VITALS: PULSE 64
[2019-05-03] MEDS: ALBUTEROL/IPRATROPIUM (NEB) 3 ML AMP HHN SCH ×3 (08:19→19:31)
[2019-05-03] MEDS: BUDESONIDE (NEB) 0.5MG/2ML AMP HHN SCH ×2 (08:20→19:32)
[2019-05-03 08:47] VITALS: BP 128/83; PULSE 77; RESP 18
[2019-05-03] MEDS: METOPROLOL (XL) 100 MG TAB PO SCH ×2 (08:55→21:00)
[2019-05-03] MEDS: PANTOPRAZOLE (EC) 40 MG TAB PO SCH ×2 (08:55→21:29)
[2019-05-03] MEDS: MESALAMINE (EC) 400 MG CAP PO SCH ×3 (08:55→21:29)
[2019-05-03] MEDS: APIXABAN 5 MG TABLET PO SCH ×2 (08:56→21:29)
[2019-05-03] MEDS: BUMETANIDE 1 MG TAB PO SCH ×2 (08:56→21:29)
[2019-05-03] MEDS: LOSARTAN 25 MG TAB PO SCH (08:56)
[2019-05-03] MEDS: SILVER SULFADIAZINE 1% 25 GM CR TOP SCH (08:57)
--- NOTE | 2019-05-03 12:16 | PN ---
Date/Time of Note Date/Time of Note DATE: 05/03/19 TIME: 12:11 Assessment/Plan VTE Prophylaxis Risk score (from Nsg)>0 risk: 4 SCD applied (from Nsg): No SCD contraindicated: low risk/ambulating Pharmacological prophylaxis: apixaban Lines/Catheters IV Catheter Type (from Nrsg): PICC Line Central line still needed: Yes (meds) Urinary Cath still in place: No Assessment/Plan Hospital Course Assessment/Plan Assessment/Plan Ulceration nodularity in the cecum. Suspect for neoplastic process Hematochezia Colonoscopy 04/27/2019 Ulceration nodularity in the cecum. Suspect for neoplastic process. Biopsies obtained. 1 cm sessile polyp in the proximal rectum. Snared and retrieved. 8 mm sessile polyp in the rectum. Snared and retrieved. Mild diverticulosis. Acute on chronic anemia- 2/2 to above S/p Acute hypoxic respiratory failure- stable Bilateral pneumonia Leukocytosis Elevated Tropin -Likely 2/.2 to demand Acute systolic congestive heart failure- improving New onset Afib with RVR -Eliquis on hold DANYA- resolved Elevated LFT- improving- likely 2/2 to hemodynamic instability vs congestion -Hepatitis B Core AB- positive HTN Sleep apnea - on BIPAP qhs Plan: Pathology reviewed. Cecal biopsies negative for malignancy, 2 rectal adenomas Continue Delzicol 800 mg 3 times daily -continue for 3-month CEA- normal, 0.9 Repeat colonoscopy in 3-month Pt to f/u with GI after d/c GI will sign off but will be available upon request Patient seen in collaboration with Dr. Devi Subjective: Patient is doing well. No over night events No reported evidence of GI bleed. tolerating diet well. PHYSICAL EXAMINATION: GENERAL: Alert & oriented x 3, in no acute distress SKIN: No lesions, no stigmata chronic liver disease, no evidence of bleeding diathesis HEAD: Normocephalic, atraumatic, no tenderness. CHEST: Inspection within normal limits. CARDIOVASCULAR: Heart: Regular rate and rhythm RESPIRATORY: Lungs clear to auscultation and percussion, no wheezing, no rubs GASTROINTESTINAL AND LIVER: Abdomen: Soft, non tenderness, non-distended, normoactive bowel sounds. Rectal: Deferred. GENITOURINARY: Male genitalia within normal limits. Result Diagram: 05/03/19 1041 05/03/19 1041 Results 24hrs Laboratory Tests Test 05/03/19 10:41 White Blood Count 7.2 Red Blood Count 3.33 L Hemoglobin 9.5 L Hematocrit 32.0 L Mean Corpuscular Volume 96.1 Mean Corpuscular Hemoglobin 28.5 L Mean Corpuscular Hemoglobin Concent 29.7 L Red Cell Distribution Width 17.4 H Platelet Count 442 #H Mean Platelet Volume 8.7 Immature Granulocytes % 0.800 H Neutrophils % 66.6 Lymphocytes % 18.4 Monocytes % 10.2 Eosinophils % 3.3 Basophils % 0.7 Nucleated Red Blood Cells % 0.3 H Immature Granulocytes # 0.060 H Neutrophils # 4.8 Lymphocytes # 1.3 Monocytes # 0.7 Eosinophils # 0.2 Basophils # 0.1 Nucleated Red Blood Cells # 0.0 Sodium Level 141 Potassium Level 3.7 Chloride Level 101 Carbon Dioxide Level 34 H Anion Gap 6 Blood Urea Nitrogen 19 Creatinine 1.16 Est Glomerular Filtrat Rate mL/min > 60 Glucose Level 115 Calcium Level 8.8 Phosphorus Level 4.2 Magnesium Level 2.0 Exam/Review of Systems Exam Vitals Vital Signs Date Temp Pulse Resp B/P (MAP) Pulse Ox O2 O2 Flow FiO2 Time Delivery Rate 05/03/19 98.4 77 18 128/83 100 08:47 (98) 05/03/19 2.0 08:25 05/03/19 Nasal 08:25 Cannula 05/03/19 35 05:10 Intake and Output 05/02/19 05/02/19 05/03/19 1515:00 23:00 07:00 IntakeIntake Total 1650 ml BalanceBalance 1650 ml Results Results 24hrs Laboratory Tests Test 05/03/19 10:41 White Blood Count 7.2 Red Blood Count 3.33 L Hemoglobin 9.5 L Hematocrit 32.0 L Mean Corpuscular Volume 96.1 Mean Corpuscular Hemoglobin 28.5 L Mean Corpuscular Hemoglobin Concent 29.7 L Red Cell Distribution Width 17.4 H Platelet Count 442 #H Mean Platelet Volume 8.7 Immature Granulocytes % 0.800 H Neutrophils % 66.6 Lymphocytes % 18.4 Monocytes % 10.2 Eosinophils % 3.3 Basophils % 0.7 Nucleated Red Blood Cells % 0.3 H Immature Granulocytes # 0.060 H Neutrophils # 4.8 Lymphocytes # 1.3 Monocytes # 0.7 Eosinophils # 0.2 Basophils # 0.1 Nucleated Red Blood Cells # 0.0 Sodium Level 141 Potassium Level 3.7 Chloride Level 101 Carbon Dioxide Level 34 H Anion Gap 6 Blood Urea Nitrogen 19 Creatinine 1.16 Est Glomerular Filtrat Rate mL/min > 60 Glucose Level 115 Calcium Level 8.8 Phosphorus Level 4.2 Magnesium Level 2.0 Medications Medication Current Medications Atorvastatin Calcium (Lipitor) 20 mg QHS PO Last administered on 05/02/19 20:40; Admin Dose 20 MG; Start 04/12/19 at 21:00 Ondansetron HCl (Zofran Inj) 4 mg Q6H PRN IV NAUSEA AND/OR VOMITING Last administered on 04/15/19 16:27; Admin Dose 4 MG; Start 04/12/19 at 13:00 Acetaminophen (Tylenol Tab) 650 mg Q6H PRN PO PAIN LEVEL 1-3 OR FEVER Last administered on 05/02/19 10:45; Admin Dose 650 MG; Start 04/12/19 at 13:00 Docusate Sodium (Colace) 100 mg Q12H PRN PO CONSTIPATION; Start 04/12/19 at 13:00 Magnesium Hydroxide (Milk Of Mag) 30 ml DAILY PRN PO CONSTIPATION; Start 04/12/19 at 13:00 Morphine Sulfate (morphine) 2 mg Q4H PRN IV SEVERE PAIN LEVEL 7-10 Last administered on 04/23/19 23:14; Admin Dose 2 MG; Start 04/13/19 at 23:30 IV Flush (NS 10 ml) 10 ml Q8 PRN IV IV PROTOCOL; Start 04/14/19 at 15:00 Lorazepam (Ativan) 1 mg Q6H PRN IV anxiety Last administered on 04/22/19 23:35; Admin Dose 1 MG; Start 04/14/19 at 15:00 [facility]iscellaneous [facility] This patient urias ... PRN PRN XX WOUND CARE; Start 04/14/19 at 21:00 Amiodarone HCl (Cordarone) 400 mg TID PO Last administered on 04/17/19 13:10; Admin Dose 400 MG; Start 04/16/19 at 13:00; Status Hold Metoprolol Succinate (Toprol Xl) 100 mg BID PO Last administered on 05/03/19 08:55; Admin Dose 100 MG; Start 04/19/19 at 21:00 Albuterol/ Ipratropium (Duoneb) 3 ml Q6HWA RESP THERAPY HHN Last administered on 05/03/19 08:19; Admin Dose 3 ML; Start 04/20/19 at 20:00 Albuterol/ Ipratropium (Duoneb) 3 ml Q2H RESP THERAPY PRN HHN shortness of breath Last administered on 04/24/19 04:16; Admin Dose 3 ML; Start 04/20/19 at 15:00 Budesonide (Pulmicort (Neb)) 0.5 mg BID RESP THERAPY HHN Last administered on 05/03/19 08:20; Admin Dose 0.5 MG; Start 04/20/19 at 20:00 Silver Sulfadiazine (Thermazene 1% 25 Gm) 1 applic DAILY TOP Last administered on 05/03/19 08:57; Admin Dose 1 APPLIC; Start 04/22/19 at 12:00 Digoxin (Digoxin) 0.125 mg DAILY@13 PO Last administered on 05/02/19 13:36; Admin Dose 0.125 MG; Start 04/27/19 at 13:00 Bumetanide (Bumex) 1 mg BID PO Last administered on 05/03/19 08:56; Admin Dose 1 MG; Start 04/28/19 at 21:00 Pantoprazole (Protonix Tab) 40 mg BID PO Last administered on 05/03/19 08:55; Admin Dose 40 MG; Start 04/28/19 at 21:00 Guaifenesin/ Dextromethorphan (Robitussin Dm Liquid Cup) 5 ml Q4H PRN PO coughing Last administered on 04/29/19 04:15; Admin Dose 5 ML; Start 04/28/19 at 20:00 Mesalamine (Delzicol Dr) 800 mg TID PO Last administered on 05/03/19 08:55; Admin Dose 800 MG; Start 04/29/19 at 21:00 Miscellaneous Information Patients own medicat... BID@10,16 XX ; Start 05/01/19 at 10:00 Losartan Potassium (Cozaar) 12.5 mg DAILY PO Last administered on 05/03/19 08:56; Admin Dose 12.5 MG; Start 05/02/19 at 09:00 Apixaban (Eliquis) 5 mg BID PO Last administered on 05/03/19at 08:56; Admin Dose 5 MG; Start 05/01/19 at 12:00 Acetaminophen/ Hydrocodone Bitart ([place] (5/325)) 1 tab Q4H PRN PO MODERATE PAIN LEVEL 4-6; Start 05/02/19 at 12:00 ROMAINE PENG May 03, 2019 12:16
[2019-05-03] MEDS: DIGOXIN 0.125 MG TAB PO SCH (13:01)
[2019-05-03 14:33] VITALS: BP 123/67; PULSE 69; RESP 18
--- NOTE | 2019-05-03 15:03 | PN ---
Date/Time of Note Date/Time of Note DATE: 05/03/19 TIME: 15:02 Objective Vitals Vital Signs Date Temp Pulse Resp B/P (MAP) Pulse Ox O2 O2 Flow FiO2 Time Delivery Rate 05/03/19 98.7 69 18 123/67 95 14:33 (85) 05/03/19 2.0 08:25 05/03/19 Nasal 08:25 Cannula 05/03/19 35 05:10 Intake and Output 05/02/19 05/02/19 05/03/19 1515:00 23:00 07:00 IntakeIntake Total 1650 ml BalanceBalance 1650 ml Results Result Diagram: 05/03/19 1041 05/03/19 1041 Medications Medications Current Medications Atorvastatin Calcium (Lipitor) 20 mg QHS PO Last administered on 05/02/19at 20:40; Admin Dose 20 MG; Start 04/12/19 at 21:00 Ondansetron HCl (Zofran Inj) 4 mg Q6H PRN IV NAUSEA AND/OR VOMITING Last administered on 04/15/19at 16:27; Admin Dose 4 MG; Start 04/12/19 at 13:00 Acetaminophen (Tylenol Tab) 650 mg Q6H PRN PO PAIN LEVEL 1-3 OR FEVER Last administered on 05/02/19at 10:45; Admin Dose 650 MG; Start 04/12/19 at 13:00 Docusate Sodium (Colace) 100 mg Q12H PRN PO CONSTIPATION; Start 04/12/19 at 13:00 Magnesium Hydroxide (Milk Of Mag) 30 ml DAILY PRN PO CONSTIPATION; Start 04/12/19 at 13:00 Morphine Sulfate (morphine) 2 mg Q4H PRN IV SEVERE PAIN LEVEL 7-10 Last administered on 04/23/19at 23:14; Admin Dose 2 MG; Start 04/13/19 at 23:30 IV Flush (NS 10 ml) 10 ml Q8 PRN IV IV PROTOCOL; Start 04/14/19 at 15:00 Lorazepam (Ativan) 1 mg Q6H PRN IV anxiety Last administered on 04/22/19 23:35; Admin Dose 1 MG; Start 04/14/19 at 15:00 [facility]isc[facility] This patient urias... PRN PRN XX WOUND CARE; Start 04/14/19 at 21:00 Amiodarone HCl (Cordarone) 400 mg TID PO Last administered on 04/17/19 13:10; Admin Dose 400 MG; Start 04/16/19 at 13:00; Status Hold Metoprolol Succinate (Toprol Xl) 100 mg BID PO Last administered on 05/03/19 08:55; Admin Dose 100 MG; Start 04/19/19 at 21:00 Albuterol/ Ipratropium (Duoneb) 3 ml Q6HWA RESP THERAPY HHN Last administered on 05/03/19 08:19; Admin Dose 3 ML; Start 04/20/19 at 20:00 Albuterol/ Ipratropium (Duoneb) 3 ml Q2H RESP THERAPY PRN HHN shortness of breath Last administered on 04/24/19 04:16; Admin Dose 3 ML; Start 04/20/19 at 15:00 Budesonide (Pulmicort (Neb)) 0.5 mg BID RESP THERAPY HHN Last administered on 05/03/19 08:20; Admin Dose 0.5 MG; Start 04/20/19 at 20:00 Silver Sulfadiazine (Thermazene 1% 25 Gm) 1 applic DAILY TOP Last administered on 05/03/19 08:57; Admin Dose 1 APPLIC; Start 04/22/19 at 12:00 Digoxin (Digoxin) 0.125 mg DAILY@13 PO Last administered on 05/03/19 13:01; Admin Dose 0.125 MG; Start 04/27/19 at 13:00 Bumetanide (Bumex) 1 mg BID PO Last administered on 05/03/19 08:56; Admin Dose 1 MG; Start 04/28/19 at 21:00 Pantoprazole (Protonix Tab) 40 mg BID PO Last administered on 05/03/19 08:55; Admin Dose 40 MG; Start 04/28/19 at 21:00 Guaifenesin/ Dextromethorphan (Robitussin Dm Liquid Cup) 5 ml Q4H PRN PO coughing Last administered on 04/29/19 04:15; Admin Dose 5 ML; Start 04/28/19 at 20:00 Mesalamine (Delzicol Dr) 800 mg TID PO Last administered on 05/03/19 13:26; Admin Dose 800 MG; Start 04/29/19 at 21:00 Miscellaneous Information Patients own medicat... BID@10,16 XX ; Start 05/01/19 at 10:00 Losartan Potassium (Cozaar) 12.5 mg DAILY PO Last administered on 05/03/19at 08:56; Admin Dose 12.5 MG; Start 05/02/19 at 09:00 Apixaban (Eliquis) 5 mg BID PO Last administered on 05/03/19at 08:56; Admin Dose 5 MG; Start 05/01/19 at 12:00 Acetaminophen/ Hydrocodone Bitart ([place] (5/325)) 1 tab Q4H PRN PO MODERATE PAIN LEVEL 4-6; Start 05/02/19 at 12:00 VTE Prophylaxis Risk score (from Ns)>0 risk: 4 SCD applied (from Ns): No SCD contraindication: other Lines/Catheters IV Catheter Type: Cárdenas in Place: No Assessment/Plan Hospital Course Subjective Other than intermittent mild headache, no acute complaints, no rectal bleeding Objective Physical exam General: Patient is laying in bed and answers questions appropriately Mentation: Patient is alert and oriented 4, Head: Normocephalic atraumatic Eyes: EOMI, pupils reactive to light Neck: Supple, nontender, midline Respiratory: Clear to auscultation bilaterally Cardiovascular: regular rate, no obvious murmurs Gastrointestinal: non-tender to palpation, bowel sounds heard. Neurological: Moves all extremities spontaneously Skin: No new skin lesions Assessment/Plan 1. Ulcerations in cecum - GI on board and appreciate recommendations. bx results noted with no malignancy seen. CEA negative. Started on mesalamine for 3 months and will need repeat colonoscopy at that time - s/p colonoscopy 04/27 - CT scan noted with thickening of cecum. Results discussed with patient 2. Acute GI bleeding- resolved - hgb stable - colonoscopy performed 04/27 - GI on board and appreciate consultation. 3. Acute hypoxic respiratory failure- stable - wean down O2 as tolerated. Now on 2L - Pulm consultation appreciated. - Nebs PRN 4. Acute systolic congestive heart failure- stable - BNP noted - Cardiology on board and appreciate recommendations - Nephrology on board for management of diuretics. Will continue on Bumex - monitor I/O and daily weights - ECHO results noted with low EF 5. New onset afib with RVR- stable - doing well on digoxin - on BB - Cardiology consultation appreciated - Eliquis restarted 8.08.09, hold if further bleeding. 6. DANYA on CKD- stable - Nephrology consultation appreciated - US results noted - renally dose medications 7. Bilateral pneumonia- resolved - seen on CXR - ID consultation appreciated and d/c antibiotics. will monitor off antibiotics per ID recs - continue Neb tx PRN 8. Elevated trop, stable, no chest pain - most likely type 2 demand - will need stress test when stable either inpatient or outpatient and possible PCI in future - no chest pain noted 9. Sleep apnea - on BIPAP qhs 10. HTN - will decrease losartan dose by half given low BP - continue BB given elevated HR at times 11. Pleural effusion s/p thoracentesis 04/28 - doing well post thora after 850 cc removed - respiratory status improving after procedure. Now only on 2L 12. Disposition - Continue weaning O2 as tolerated - Will cont Eliquis and monitor for any GI bleeding - on board for assistance with placement to SNF. Evaluation pending for Josh but patients respiratory status continues to improve so may not qualify LUIS CARLOS KENYON May 03, 2019 15:03
--- NOTE | 2019-05-03 17:13 | CONS ---
Assessment/Plan Assessment/Plan Assessment/Plan (Daily) 1. Oliguric Acute kidney injury on CKD 2/2 Hemodynamics from CHF and atrial fibrillation RVR , also contributing ATN from sepsis 2. acute hypoxic respiratory failure requiring BIPAP due to Bilateral PNA and CHF 3. sepsis due to Bilateral PNA 4. Acute CHF exacerbation with EF 20% on ECHO, most likely new onset since pt has been denying any H/o CHF 5. New onset afib with RVR- on cardizem gtt 6. H/o HTN 7. H/o Sleep apnea 8. H/o Possible CKD but pt has been denying it.. His Renal Us showed normal echogenicity of kidneys but kidneys are small in size, The right kidney measures 9.5 cm. The left kidney measures 9.2 cm. 9. Moderate Right sided pleural effusion s/p R thoracentesis on 04/28/19- 850cc, removed, Plan: -BUN/Cr improved to 19/1.16, other electrolytes stable today -s/p R thoracentesis on 04/28/19- 850cc, Conitnue Bumex to 1mg PO BID- . Monitor electrolytes and replace as needed Echo showed EF 20% wiht Moderate MR, moderate to severe TR, Enlarged RV and RVSP 52 Amiodarone 400mg PO TID and metoprolol 100mg PO BID for rate conrol, eliquis for anticoagulation will follow up Consultation Date/Type/Reason Admit Date/Time Apr 12, 2019 at 12:21 Initial Consult Date 04/13/19 Type of Consult NEPHROLOGY Requesting Provider: MARVIN FOX MD Date/Time of Note DATE: 05/03/19 TIME: 17:12 Exam/Review of Systems Exam Vitals Vital Signs Date Temp Pulse Resp B/P (MAP) Pulse Ox O2 O2 Flow FiO2 Time Delivery Rate 05/03/19 98.7 69 18 123/67 95 14:33 (85) 05/03/19 2.0 08:25 05/03/19 Nasal 08:25 Cannula 05/03/19 35 05:10 Intake and Output 05/02/19 05/02/19 05/03/19 1515:00 23:00 07:00 IntakeIntake Total 1650 ml BalanceBalance 1650 ml Exam Constitutional: alert awake communicative Respiratory: decreased BS+, no wheezing Cardiovascular: regular rate and rhythm, nl pulses Gastrointestinal: soft, non-tender Musculoskeletal: muscle weakness, swelling (1+ pitting edema ) Extremities: normal pulses Neurological: alert awake, communicative, non focal Results Result Diagram: 05/03/19 1041 05/03/19 1041 Results 24hrs Laboratory Tests Test 05/03/19 10:41 White Blood Count 7.2 Red Blood Count 3.33 L Hemoglobin 9.5 L Hematocrit 32.0 L Mean Corpuscular Volume 96.1 Mean Corpuscular Hemoglobin 28.5 L Mean Corpuscular Hemoglobin Concent 29.7 L Red Cell Distribution Width 17.4 H Platelet Count 442 #H Mean Platelet Volume 8.7 Immature Granulocytes % 0.800 H Neutrophils % 66.6 Lymphocytes % 18.4 Monocytes % 10.2 Eosinophils % 3.3 Basophils % 0.7 Nucleated Red Blood Cells % 0.3 H Immature Granulocytes # 0.060 H Neutrophils # 4.8 Lymphocytes # 1.3 Monocytes # 0.7 Eosinophils # 0.2 Basophils # 0.1 Nucleated Red Blood Cells # 0.0 Sodium Level 141 Potassium Level 3.7 Chloride Level 101 Carbon Dioxide Level 34 H Anion Gap 6 Blood Urea Nitrogen 19 Creatinine 1.16 Est Glomerular Filtrat Rate mL/min > 60 Glucose Level 115 Calcium Level 8.8 Phosphorus Level 4.2 Magnesium Level 2.0 Medications Medication Current Medications Atorvastatin Calcium (Lipitor) 20 mg QHS PO Last administered on 05/02/19at 20:40; Admin Dose 20 MG; Start 04/12/19 at 21:00 Ondansetron HCl (Zofran Inj) 4 mg Q6H PRN IV NAUSEA AND/OR VOMITING Last administered on 04/15/19at 16:27; Admin Dose 4 MG; Start 04/12/19 at 13:00 Acetaminophen (Tylenol Tab) 650 mg Q6H PRN PO PAIN LEVEL 1-3 OR FEVER Last administered on 05/02/19at 10:45; Admin Dose 650 MG; Start 04/12/19 at 13:00 Docusate Sodium (Colace) 100 mg Q12H PRN PO CONSTIPATION; Start 04/12/19 at 13:00 Magnesium Hydroxide (Milk Of Mag) 30 ml DAILY PRN PO CONSTIPATION; Start at 13:00 Morphine Sulfate (morphine) 2 mg Q4H PRN IV SEVERE PAIN LEVEL 7-10 Last administered on 04/23/19 23:14; Admin Dose 2 MG; Start 04/13/19 at 23:30 IV Flush (NS 10 ml) 10 ml Q8 PRN IV IV PROTOCOL; Start 04/14/19 at 15:00 Lorazepam (Ativan) 1 mg Q6H PRN IV anxiety Last administered on 04/22/19 23:35; Admin Dose 1 MG; Start 04/14/19 at 15:00 [facility]isc[facility] This patient urias... PRN PRN XX WOUND CARE; Start 04/14/19 at 21:00 Amiodarone HCl (Cordarone) 400 mg TID PO Last administered on 04/17/19 13:10; Admin Dose 400 MG; Start 04/16/19 at 13:00; Status Hold Metoprolol Succinate (Toprol Xl) 100 mg BID PO Last administered on 05/03/19 08:55; Admin Dose 100 MG; Start 04/19/19 at 21:00 Albuterol/ Ipratropium (Duoneb) 3 ml Q6HWA RESP THERAPY HHN Last administered on 05/03/19 08:19; Admin Dose 3 ML; Start 04/20/19 at 20:00 Albuterol/ Ipratropium (Duoneb) 3 ml Q2H RESP THERAPY PRN HHN shortness of breath Last administered on 04/24/19 04:16; Admin Dose 3 ML; Start 04/20/19 at 15:00 Budesonide (Pulmicort (Neb)) 0.5 mg BID RESP THERAPY HHN Last administered on 05/03/19 08:20; Admin Dose 0.5 MG; Start 04/20/19 at 20:00 Silver Sulfadiazine (Thermazene 1% 25 Gm) 1 applic DAILY TOP Last administered on 05/03/19 08:57; Admin Dose 1 APPLIC; Start 04/22/19 at 12:00 Digoxin (Digoxin) 0.125 mg DAILY@13 PO Last administered on 05/03/19 13:01; Admin Dose 0.125 MG; Start 04/27/19 at 13:00 Bumetanide (Bumex) 1 mg BID PO Last administered on 05/03/19 08:56; Admin Dose 1 MG; Start 8/8/19 at 21:00 Pantoprazole (Protonix Tab) 40 mg BID PO Last administered on 05/03/19 08:55; Admin Dose 40 MG; Start 04/28/19 at 21:00 Guaifenesin/ Dextromethorphan (Robitussin Dm Liquid Cup) 5 ml Q4H PRN PO coughing Last administered on 04/29/19 04:15; Admin Dose 5 ML; Start 04/28/19 at 20:00 Mesalamine (Delzicol Dr) 800 mg TID PO Last administered on 05/03/19 13:26; Admin Dose 800 MG; Start 04/29/19 at 21:00 Miscellaneous Information Patients own medicat... BID@,16 XX ; Start 05/01/19 at 10:00 Losartan Potassium (Cozaar) 12.5 mg DAILY PO Last administered on 05/03/19 08:56; Admin Dose 12.5 MG; Start 05/02/19 at 09:00 Apixaban (Eliquis) 5 mg BID PO Last administered on 05/03/19 08:56; Admin Dose 5 MG; Start 05/01/19 at 12:00 Acetaminophen/ Hydrocodone Bitart ([place] (5/325)) 1 tab Q4H PRN PO MODERATE PAIN LEVEL 4-6; Start 05/02/19 at 12:00 RYAN VICENTE MD May 03, 2019 17:13
--- NOTE | 2019-05-03 17:15 | CONS ---
Assessment/Plan Cardiology NYHA: IV Heart Failure Type: Acute Heart Failure Type: Both Assessment/Plan Hospital Course (Demo Recall) Atrial fibrillation Acute decompensated systolic congestive heart failure, improved Cardia myopathy Mitral and tricuspid valve regurgitation GI bleed Continue ARB and titrate as tolerated Diuretics as per nephrology Titrate beta-elsa as needed for heart rate control Continue anticoagulation as tolerated DC planning Consultation Date/Type/Reason Admit Date/Time Apr 12, 2019 at 12:21 Initial Consult Date 04/25/19 Type of Consult Cardiology Requesting Provider: MARVIN FOX MD Date/Time of Note DATE: 05/03/19 TIME: 17:14 24 HR Interval Summary Free Text/Dictation Shortness of breath is better. Denies chest pain, palpitations Exam/Review of Systems Vital Signs Vitals Vital Signs Date Temp Pulse Resp B/P (MAP) Pulse Ox O2 O2 Flow FiO2 Time Delivery Rate 05/03/19 98.7 69 18 123/67 95 14:33 (85) 05/03/19 2.0 08:25 05/03/19 Nasal 08:25 Cannula 05/03/19 35 05:10 Intake and Output 05/02/19 05/02/19 05/03/19 1515:00 23:00 07:00 IntakeIntake Total 1650 ml BalanceBalance 1650 ml Exam Constitutional: alert, oriented (No apparent distress) Respiratory: other (Coarse breath sounds bilaterally, no wheezing) Cardiovascular: irregular rhythm (S1-S2 heard) Gastrointestinal: soft, non-tender, bowel sounds Extremities: edema (Trace) Labs Result Diagram: 05/03/19 1041 05/03/19 1041 Results 24hrs Laboratory Tests Test 05/03/19 10:41 White Blood Count 7.2 Red Blood Count 3.33 L Hemoglobin 9.5 L Hematocrit 32.0 L Mean Corpuscular Volume 96.1 Mean Corpuscular Hemoglobin 28.5 L Mean Corpuscular Hemoglobin Concent 29.7 L Red Cell Distribution Width 17.4 H Platelet Count 442 #H Mean Platelet Volume 8.7 Immature Granulocytes % 0.800 H Neutrophils % 66.6 Lymphocytes % 18.4 Monocytes % 10.2 Eosinophils % 3.3 Basophils % 0.7 Nucleated Red Blood Cells % 0.3 H Immature Granulocytes # 0.060 H Neutrophils # 4.8 Lymphocytes # 1.3 Monocytes # 0.7 Eosinophils # 0.2 Basophils # 0.1 Nucleated Red Blood Cells # 0.0 Sodium Level 141 Potassium Level 3.7 Chloride Level 101 Carbon Dioxide Level 34 H Anion Gap 6 Blood Urea Nitrogen 19 Creatinine 1.16 Est Glomerular Filtrat Rate mL/min > 60 Glucose Level 115 Calcium Level 8.8 Phosphorus Level 4.2 Magnesium Level 2.0 Medications Medications Current Medications Atorvastatin Calcium (Lipitor) 20 mg QHS PO Last administered on 05/02/19 20:40; Admin Dose 20 MG; Start 04/12/19 at 21:00 Ondansetron HCl (Zofran Inj) 4 mg Q6H PRN IV NAUSEA AND/OR VOMITING Last administered on 04/15/19 16:27; Admin Dose 4 MG; Start 04/12/19 at 13:00 Acetaminophen (Tylenol Tab) 650 mg Q6H PRN PO PAIN LEVEL 1-3 OR FEVER Last administered on 05/02/19 10:45; Admin Dose 650 MG; Start 04/12/19 at 13:00 Docusate Sodium (Colace) 100 mg Q12H PRN PO CONSTIPATION; Start 04/12/19 at 13:00 Magnesium Hydroxide (Milk Of Mag) 30 ml DAILY PRN PO CONSTIPATION; Start at 13:00 Morphine Sulfate (morphine) 2 mg Q4H PRN IV SEVERE PAIN LEVEL 7-10 Last administered on 04/23/19 23:14; Admin Dose 2 MG; Start 04/13/19 at 23:30 IV Flush (NS 10 ml) 10 ml Q8 PRN IV IV PROTOCOL; Start 04/14/19 at 15:00 Lorazepam (Ativan) 1 mg Q6H PRN IV anxiety Last administered on 04/22/19 23:35; Admin Dose 1 MG; Start 04/14/19 at 15:00 Miscellaneous Information (Pending [facility] Order For Wound Care) This patient urias... PRN PRN XX WOUND CARE; Start 04/14/19 at 21:00 Amiodarone HCl (Cordarone) 400 mg TID PO Last administered on 04/17/19 13:10; Admin Dose 400 MG; Start 04/16/19 at 13:00; Status Hold Metoprolol Succinate (Toprol Xl) 100 mg BID PO Last administered on 05/03/19 08:55; Admin Dose 100 MG; Start 04/19/19 at 21:00 Albuterol/ Ipratropium (Duoneb) 3 ml Q6HWA RESP THERAPY HHN Last administered on 05/03/19 08:19; Admin Dose 3 ML; Start 04/20/19 at 20:00 Albuterol/ Ipratropium (Duoneb) 3 ml Q2H RESP THERAPY PRN HHN shortness of breath Last administered on 04/24/19 04:16; Admin Dose 3 ML; Start 04/20/19 at 15:00 Budesonide (Pulmicort (Neb)) 0.5 mg BID RESP THERAPY HHN Last administered on 05/03/19 08:20; Admin Dose 0.5 MG; Start 04/20/19 at 20:00 Silver Sulfadiazine (Thermazene 1% 25 Gm) 1 applic DAILY TOP Last administered on 05/03/19 08:57; Admin Dose 1 APPLIC; Start 04/22/19 at 12:00 Digoxin (Digoxin) 0.125 mg DAILY@13 PO Last administered on 05/03/19 13:01; Admin Dose 0.125 MG; Start 04/27/19 at 13:00 Bumetanide (Bumex) 1 mg BID PO Last administered on 05/03/19 08:56; Admin Dose 1 MG; Start 04/28/19 at 21:00 Pantoprazole (Protonix Tab) 40 mg BID PO Last administered on 05/03/19 08:55; Admin Dose 40 MG; Start 04/28/19 at 21:00 Guaifenesin/ Dextromethorphan (Robitussin Dm Liquid Cup) 5 ml Q4H PRN PO coughing Last administered on 04/29/19 04:15; Admin Dose 5 ML; Start 04/28/19 at 20:00 Mesalamine (Delzicol Dr) 800 mg TID PO Last administered on 05/03/19 13:26; Admin Dose 800 MG; Start 04/29/19 at 21:00 Miscellaneous Information Patients own medicat... BID@10,16 XX ; Start 05/01/19 at 10:00 Losartan Potassium (Cozaar) 12.5 mg DAILY PO Last administered on 05/03/19 08:56; Admin Dose 12.5 MG; Start 05/02/19 at 09:00 Apixaban (Eliquis) 5 mg BID PO Last administered on 05/03/19at 08:56; Admin Dose 5 MG; Start 05/01/19 at 12:00 Acetaminophen/ Hydrocodone Bitart ([place] (5/325)) 1 tab Q4H PRN PO MODERATE PAIN LEVEL 4-6; Start 05/02/19 at 12:00 Christian Araujo DO May 03, 2019 17:15
[2019-05-03 19:34] VITALS: BP 104/62; PULSE 82; RESP 20
[2019-05-03] MEDS: ATORVASTATIN 20 MG TAB PO SCH (21:29)
[2019-05-03] MEDS: ACETAMINOPHEN 325 MG TAB PO PRN (22:29)
[2019-05-04] VITALS (8 sets, daily range): BP systolic 94–114; BP diastolic 60–76; PULSE 61–96; RESP 16–20
--- NOTE | 2019-05-04 08:07 | CONS ---
Assessment/Plan Cardiology NYHA: IV Heart Failure Type: Acute Heart Failure Type: Both Assessment/Plan Assessment/Plan (Daily) Assessment Atrial fibrillation Acute decompensated systolic congestive heart failure, improved Cardia myopathy Mitral and tricuspid valve regurgitation GI bleed Plan: continue AC no change in cardiac meds Consultation Date/Type/Reason Admit Date/Time Apr 12, 2019 at 12:21 Initial Consult Date 04/25/19 Type of Consult Cardiology Requesting Provider: MARVIN FOX MD Date/Time of Note DATE: 05/04/19 TIME: 08:06 24 HR Interval Summary Free Text/Dictation no chest pain, no sob, no apparent bleed Detailed Summary Respiratory: no complaints Cardiovascular: no complaints Gastrointestinal: no complaints Musculoskeletal: no complaints Skin: no complaints Neurologic: no complaints Endocrine: no complaints Lymphatic: no complaints Exam/Review of Systems Vital Signs Vitals Vital Signs Date Temp Pulse Resp B/P (MAP) Pulse Ox O2 O2 Flow FiO2 Time Delivery Rate 05/04/19 98.0 87 17 113/76 99 07:54 (88) 05/04/19 35 05:04 05/04/19 2.0 02:10 05/03/19 Nasal 20:00 Cannula Intake and Output 05/03/19 05/03/19 05/04/19 1515:00 23:00 07:00 IntakeIntake Total 480 ml 960 ml OutputOutput Total 800 ml 200 ml BalanceBalance -320 ml 760 ml Exam Constitutional: alert, oriented Head: normocephalic, atraumatic Neck: supple Respiratory: clear to auscultation Cardiovascular: irregular rhythm Gastrointestinal: soft Musculoskeletal: nl extremities to inspection Labs Result Diagram: 05/04/1952005/04/19520 Results 24hrs Laboratory Tests Test 05/03/19 10:41 05/04/19 05:21 White Blood Count 7.2 6.1 Red Blood Count 3.33 L 3.22 L Hemoglobin 9.5 L 9.2 L Hematocrit 32.0 L 30.7 L Mean Corpuscular Volume 96.1 95.3 Mean Corpuscular Hemoglobin 28.5 L 28.6 L Mean Corpuscular Hemoglobin Concent 29.7 L 30.0 L Red Cell Distribution Width 17.4 H 17.2 H Platelet Count 442 #H 439 H Mean Platelet Volume 8.7 9.0 Immature Granulocytes % 0.800 H 0.800 H Neutrophils % 66.6 61.5 Lymphocytes % 18.4 23.6 Monocytes % 10.2 10.8 Eosinophils % 3.3 3.0 Basophils % 0.7 0.3 Nucleated Red Blood Cells % 0.3 H 0.0 Immature Granulocytes # 0.060 H 0.050 H Neutrophils # 4.8 3.8 Lymphocytes # 1.3 1.4 Monocytes # 0.7 0.7 Eosinophils # 0.2 0.2 Basophils # 0.1 0.0 Nucleated Red Blood Cells # 0.0 0.0 Sodium Level 141 141 Potassium Level 3.7 3.4 L Chloride Level 101 100 Carbon Dioxide Level 34 H 36 H Anion Gap 6 5 Blood Urea Nitrogen 19 18 Creatinine 1.16 1.17 Est Glomerular Filtrat Rate mL/min > 60 > 60 Glucose Level 115 92 Calcium Level 8.8 8.3 L Phosphorus Level 4.2 4.3 Magnesium Level 2.0 1.9 Medications Medications Current Medications Atorvastatin Calcium (Lipitor) 20 mg QHS PO Last administered on 05/03/19 21:29; Admin Dose 20 MG; Start 04/12/19 at 21:00 Ondansetron HCl (Zofran Inj) 4 mg Q6H PRN IV NAUSEA AND/OR VOMITING Last administered on 04/15/19 16:27; Admin Dose 4 MG; Start 04/12/19 at 13:00 Acetaminophen (Tylenol Tab) 650 mg Q6H PRN PO PAIN LEVEL 1-3 OR FEVER Last administered on 05/03/19 22:29; Admin Dose 650 MG; Start 04/12/19 at 13:00 Docusate Sodium (Colace) 100 mg Q12H PRN PO CONSTIPATION; Start 04/12/19 at 13:00 Magnesium Hydroxide (Milk Of Mag) 30 ml DAILY PRN PO CONSTIPATION; Start 04/12/19 at 13:00 Morphine Sulfate (morphine) 2 mg Q4H PRN IV SEVERE PAIN LEVEL 7-10 Last administered on 04/23/19 23:14; Admin Dose 2 MG; Start 04/13/19 at 23:30 IV Flush (NS 10 ml) 10 ml Q8 PRN IV IV PROTOCOL; Start 04/14/19 at 15:00 Lorazepam (Ativan) 1 mg Q6H PRN IV anxiety Last administered on 04/22/19 23:35; Admin Dose 1 MG; Start 04/14/19 at 15:00 Miscellaneous Information (Pending [facility] Order For Wound Care) This patient urias... PRN PRN XX WOUND CARE; Start 04/14/19 at 21:00 Amiodarone HCl (Cordarone) 400 mg TID PO Last administered on 04/17/19 13:10; Admin Dose 400 MG; Start 04/16/19 at 13:00; Status Hold Metoprolol Succinate (Toprol Xl) 100 mg BID PO Last administered on 05/03/19 08:55; Admin Dose 100 MG; Start 04/19/19 at 21:00 Albuterol/ Ipratropium (Duoneb) 3 ml Q6HWA RESP THERAPY HHN Last administered on 05/03/19 19:31; Admin Dose 3 ML; Start 04/20/19 at 20:00 Albuterol/ Ipratropium (Duoneb) 3 ml Q2H RESP THERAPY PRN HHN shortness of breath Last administered on 04/24/19 04:16; Admin Dose 3 ML; Start 04/20/19 at 15:00 Budesonide (Pulmicort (Neb)) 0.5 mg BID RESP THERAPY HHN Last administered on 05/03/19 19:32; Admin Dose 0.5 MG; Start 04/20/19 at 20:00 Silver Sulfadiazine (Thermazene 1% 25 Gm) 1 applic DAILY TOP Last administered on 05/03/19 08:57; Admin Dose 1 APPLIC; Start 04/22/19 at 12:00 Digoxin (Digoxin) 0.125 mg DAILY@13 PO Last administered on 05/03/19 13:01; Admin Dose 0.125 MG; Start 04/27/19 at 13:00 Bumetanide (Bumex) 1 mg BID PO Last administered on 05/03/19 21:29; Admin Dose 1 MG; Start 04/28/19 at 21:00 Pantoprazole (Protonix Tab) 40 mg BID PO Last administered on 05/03/19 21:29; Admin Dose 40 MG; Start 04/28/19 at 21:00 Guaifenesin/ Dextromethorphan (Robitussin Dm Liquid Cup) 5 ml Q4H PRN PO coughing Last administered on 04/29/19 04:15; Admin Dose 5 ML; Start 04/28/19 at 20:00 Mesalamine (Delzicol Dr) 800 mg TID PO Last administered on 05/03/19 21:29; Admin Dose 800 MG; Start 04/29/19 at 21:00 Miscellaneous Information Patients own medicat... BID@10,16 XX ; Start 05/01/19 at 10:00 Losartan Potassium (Cozaar) 12.5 mg DAILY PO Last administered on 05/03/19 08:56; Admin Dose 12.5 MG; Start 05/02/19 at 09:00 Apixaban (Eliquis) 5 mg BID PO Last administered on 05/03/19 21:29; Admin Dose 5 MG; Start 05/01/19 at 12:00 Acetaminophen/ Hydrocodone Bitart ([place] (5/325)) 1 tab Q4H PRN PO MODERATE PAIN LEVEL 4-6; Start 05/02/19 at 12:00 CAMERON IBARRA MD May 04, 2019 08:07
--- NOTE | 2019-05-04 08:32 | CONS ---
Assessment/Plan Assessment/Plan Assessment/Plan (Daily) 1. Oliguric Acute kidney injury on CKD 2/2 Hemodynamics from CHF and atrial fibrillation RVR , also contributing ATN from sepsis 2. acute hypoxic respiratory failure requiring BIPAP due to Bilateral PNA and CHF 3. sepsis due to Bilateral PNA 4. Acute CHF exacerbation with EF 20% on ECHO, most likely new onset since pt has been denying any H/o CHF 5. New onset afib with RVR- on cardizem gtt 6. H/o HTN 7. H/o Sleep apnea 8. H/o Possible CKD but pt has been denying it.. His Renal Us showed normal echogenicity of kidneys but kidneys are small in size, The right kidney measures 9.5 cm. The left kidney measures 9.2 cm. 9. Moderate Right sided pleural effusion s/p R thoracentesis on 04/28/19- 850cc, removed, 10. Hypokalemia Plan: -BUN/Cr improved to 18/1.17, K 3.4- KCl 20meQ PO daily -s/p R thoracentesis on 04/28/19- 850cc, Conitnue Bumex to 1mg PO BID- . Monitor electrolytes and replace as needed Echo showed EF 20% wiht Moderate MR, moderate to severe TR, Enlarged RV and RVSP 52 Amiodarone 400mg PO TID and metoprolol 100mg PO BID for rate conrol, eliquis for anticoagulation SNF placement in Progress will follow up Consultation Date/Type/Reason Admit Date/Time Apr 12, 2019 at 12:21 Initial Consult Date 04/13/19 Type of Consult NEPHROLOGY Requesting Provider: MARVIN FOX MD Date/Time of Note DATE: 05/04/19 TIME: 08:32 Exam/Review of Systems Exam Vitals Vital Signs Date Temp Pulse Resp B/P (MAP) Pulse Ox O2 O2 Flow FiO2 Time Delivery Rate 05/04/19 98.0 87 17 113/76 99 07:54 (88) 05/04/19 35 05:04 05/04/19 2.0 02:10 05/03/19 Nasal 20:00 Cannula Intake and Output 05/03/19 05/03/19 05/04/19 1515:00 23:00 07:00 IntakeIntake Total 480 ml 960 ml OutputOutput Total 800 ml 200 ml BalanceBalance -320 ml 760 ml Exam Constitutional: alert awake communicative Respiratory: decreased BS+, no wheezing Cardiovascular: regular rate and rhythm, nl pulses Gastrointestinal: soft, non-tender Musculoskeletal: muscle weakness, swelling (1+ pitting edema ) Extremities: normal pulses Neurological: alert awake, communicative, non focal Results Result Diagram: 05/04/1952005/04/19 0521 Results 24hrs Laboratory Tests Test 05/03/19 10:41 05/04/19 05:21 White Blood Count 7.2 6.1 Red Blood Count 3.33 L 3.22 L Hemoglobin 9.5 L 9.2 L Hematocrit 32.0 L 30.7 L Mean Corpuscular Volume 96.1 95.3 Mean Corpuscular Hemoglobin 28.5 L 28.6 L Mean Corpuscular Hemoglobin Concent 29.7 L 30.0 L Red Cell Distribution Width 17.4 H 17.2 H Platelet Count 442 #H 439 H Mean Platelet Volume 8.7 9.0 Immature Granulocytes % 0.800 H 0.800 H Neutrophils % 66.6 61.5 Lymphocytes % 18.4 23.6 Monocytes % 10.2 10.8 Eosinophils % 3.3 3.0 Basophils % 0.7 0.3 Nucleated Red Blood Cells % 0.3 H 0.0 Immature Granulocytes # 0.060 H 0.050 H Neutrophils # 4.8 3.8 Lymphocytes # 1.3 1.4 Monocytes # 0.7 0.7 Eosinophils # 0.2 0.2 Basophils # 0.1 0.0 Nucleated Red Blood Cells # 0.0 0.0 Sodium Level 141 141 Potassium Level 3.7 3.4 L Chloride Level 101 100 Carbon Dioxide Level 34 H 36 H Anion Gap 6 5 Blood Urea Nitrogen 19 18 Creatinine 1.16 1.17 Est Glomerular Filtrat Rate mL/min > 60 > 60 Glucose Level 115 92 Calcium Level 8.8 8.3 L Phosphorus Level 4.2 4.3 Magnesium Level 2.0 1.9 Medications Medication Current Medications Atorvastatin Calcium (Lipitor) 20 mg QHS PO Last administered on 05/03/19at 21:29; Admin Dose 20 MG; Start 04/12/19 at 21:00 Ondansetron HCl (Zofran Inj) 4 mg Q6H PRN IV NAUSEA AND/OR VOMITING Last administered on 04/15/19at 16:27; Admin Dose 4 MG; Start 04/12/19 at 13:00 Acetaminophen (Tylenol Tab) 650 mg Q6H PRN PO PAIN LEVEL 1-3 OR FEVER Last adm inistered on 05/03/19 22:29; Admin Dose 650 MG; Start 04/12/19 at 13:00 Docusate Sodium (Colace) 100 mg Q12H PRN PO CONSTIPATION; Start 04/12/19 at 13:00 Magnesium Hydroxide (Milk Of Mag) 30 ml DAILY PRN PO CONSTIPATION; Start 04/12/19 at 13:00 Morphine Sulfate (morphine) 2 mg Q4H PRN IV SEVERE PAIN LEVEL 7-10 Last administered on 04/23/19 23:14; Admin Dose 2 MG; Start 04/13/19 at 23:30 IV Flush (NS 10 ml) 10 ml Q8 PRN IV IV PROTOCOL; Start 04/14/19 at 15:00 Lorazepam (Ativan) 1 mg Q6H PRN IV anxiety Last administered on 04/22/19 23:35; Admin Dose 1 MG; Start 04/14/19 at 15:00 Miscellaneous Information (Pending [facility]yl Order For Wound Care) This patient urias... PRN PRN XX WOUND CARE; Start 04/14/19 at 21:00 Amiodarone HCl (Cordarone) 400 mg TID PO Last administered on 04/17/19 13:10; Admin Dose 400 MG; Start 04/16/19 at 13:00; Status Hold Metoprolol Succinate (Toprol Xl) 100 mg BID PO Last administered on 05/03/19 08:55; Admin Dose 100 MG; Start 04/19/19 at 21:00 Albuterol/ Ipratropium (Duoneb) 3 ml Q6HWA RESP THERAPY HHN Last administered on 05/03/19 19:31; Admin Dose 3 ML; Start 04/20/19 at 20:00 Albuterol/ Ipratropium (Duoneb) 3 ml Q2H RESP THERAPY PRN HHN shortness of breath Last administered on 04/24/19 04:16; Admin Dose 3 ML; Start 04/20/19 at 15:00 Budesonide (Pulmicort (Neb)) 0.5 mg BID RESP THERAPY HHN Last administered on 8/13/19at 19:32; Admin Dose 0.5 MG; Start 04/20/19 at 20:00 Silver Sulfadiazine (Thermazene 1% 25 Gm) 1 applic DAILY TOP Last administered on 05/03/19 08:57; Admin Dose 1 APPLIC; Start 04/22/19 at 12:00 Digoxin (Digoxin) 0.125 mg DAILY@13 PO Last administered on 05/03/19 13:01; Admin Dose 0.125 MG; Start 04/27/19 at 13:00 Bumetanide (Bumex) 1 mg BID PO Last administered on 05/03/19 21:29; Admin Dose 1 MG; Start 04/28/19 at 21:00 Pantoprazole (Protonix Tab) 40 mg BID PO Last administered on 05/03/19 21:29; Admin Dose 40 MG; Start 04/28/19 at 21:00 Guaifenesin/ Dextromethorphan (Robitussin Dm Liquid Cup) 5 ml Q4H PRN PO coughing Last administered on 04/29/19 04:15; Admin Dose 5 ML; Start 04/28/19 at 20:00 Mesalamine (Delzicol Dr) 800 mg TID PO Last administered on 05/03/19 21:29; Admin Dose 800 MG; Start 04/29/19 at 21:00 Miscellaneous Information Patients own medicat... BID@10,16 XX ; Start 05/01/19 at 10:00 Losartan Potassium (Cozaar) 12.5 mg DAILY PO Last administered on 05/03/19 08:56; Admin Dose 12.5 MG; Start 05/02/19 at 09:00 Apixaban (Eliquis) 5 mg BID PO Last administered on 05/03/19 21:29; Admin Dose 5 MG; Start 05/01/19 at 12:00 Acetaminophen/ Hydrocodone Bitart ([place] (5/325)) 1 tab Q4H PRN PO MODERATE PAIN LEVEL 4-6; Start 05/02/19 at 12:00 RYAN VICENTE MD May 04, 2019 08:32
[2019-05-04] MEDS: METOPROLOL (XL) 100 MG TAB PO SCH ×2 (09:00→21:24)
[2019-05-04] MEDS: LOSARTAN 25 MG TAB PO SCH ×2 (09:00→09:11)
[2019-05-04] MEDS: BUMETANIDE 1 MG TAB PO SCH ×2 (09:10→21:23)
[2019-05-04] MEDS: APIXABAN 5 MG TABLET PO SCH ×2 (09:11→21:23)
[2019-05-04] MEDS: MESALAMINE (EC) 400 MG CAP PO SCH ×3 (09:11→21:23)
[2019-05-04] MEDS: SILVER SULFADIAZINE 1% 25 GM CR TOP SCH (09:12)
[2019-05-04] MEDS: PANTOPRAZOLE (EC) 40 MG TAB PO SCH ×2 (09:12→21:22)
--- NOTE | 2019-05-04 12:40 | DS ---
Date/Time of Note Date/Time of Note DATE: 05/04/19 TIME: 12:10 Discharge Summary Admission/Discharge Info Admit Date/Time Apr 12, 2019 at 12:21 Discharge Date/Time Discharge Diagnosis 1. CHF, systolic with LVEF , acute on chronic, stable, follow up with cardiology 2. Dilated cardiomyopathy, cardiology for work up of etiology 3. Acute respiratory failure, resolved 4. Atrial fibrillation, newly diagnosed, controlled rate on eliquis 5. GI bleeding with ulcerations in cecum, negative for malignancy, no active bleeding, follow up with GI 6. Bilateral community acquired pneumonia, treated 7. Acute renal failure, resolved 8. Sleep apnea, on BiPAP 9. HTN, controlled 10. Pleural effusion s/p thoracentesis 04/28 Patient Condition: Stable Hospital Course 63 yo M with PMH HTN, sleep apnea, and hyperlipidemia presented to ED with worsening shortness of breath. Patient was on BIPAP and only answering simple questions. History obtained from patient as well and ED physician. Patient states he has not been feeling well for the past week and has been experiencing worsening shortness of breath while ambulating. He also complains of paroxysmal nocturnal dyspnea. He has associated bilateral lower extremity swelling. Admits to palpitations but denies any chest pain, dizziness, nausea, vomiting, coughing, sputum production, abdominal pain or urinary issues. Patient denies any recent sick contact or recent travel. Denies any cardiac issues besides elevated blood pressure. Echocardiography revealed LVEF 20%, PASP 52 mmHg. ECG with atrial fibrillation. Patient is on diuretics with bumex, losartan and topril XL for CHF, digoxin, toprol XL, amiodarone and eliquis for atrial fibrillation. Shortness of breath improved, ventricular rate is under controlled. 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 Patient will need outpatient stress test to rule out ischemic cardiomyopathy. There were bilateral pulmonary infiltrates indicates pneumonia and he is fully treated with antibiotics. Patient had right sided thoracentesis with removal of 850 cc fluid on 04/28/2019. Fluid culture is negative. Patient had GI bleeding that he got colonoscopy on 04/27/2019, it revealed Ulceration nodularity in the cecum, 1 cm sessile polyp in the proximal rectum. Snared and retrieved. 8 mm sessile polyp in the rectum. Snared and retrieved. Mild diverticulosis.The biopsy from the ulceration nodularity cecal lesion reported as severe acute inflammation, negative for malignancy. GI Dr. Devi recommends Delzicol 800 mg 3 times daily for 3-month, repeat colonoscopy in 3- month. Patient had acute renal failure that resolved. Home Meds Active Scripts Pantoprazole* (Pantoprazole*) 40 Mg Tablet., 40 MG PO BID for 30 Days Prov:CHELSEA NGUYEN MD 05/04/19 Mesalamine (Delzicol) 400 Mg Cap.drtab., 800 MG PO TID for 30 Days Prov:CHELSEA NGUYEN MD 05/04/19 Bumetanide* (Bumetanide*) 1 Mg Tablet, 1 MG PO BID for 30 Days, TAB Prov:CHELSEA NGUYEN MD 05/04/19 Metoprolol Succinate* (Toprol XL*) 100 Mg Tab.sr.24h, 100 MG PO BID for 30 Days Prov:CHELSEA NGUYEN MD 05/04/19 Losartan Potassium* (Cozaar*) 25 Mg Tablet, 12.5 MG PO DAILY for 30 Days, TAB Prov:CHELSEA NGUYEN MD 05/04/19 Digoxin* (Digitek*) 125 Mcg Tablet, 0.125 MG PO DAILY@13 for 30 Days, TAB Prov:CHELSEA NGUYEN MD 05/04/19 Amiodarone Hcl* (Amiodarone Hcl*) 200 Mg Tablet, 400 MG PO TID for 30 Days, TAB Prov:CHELSEA NGUYEN MD 05/04/19 Apixaban* (Eliquis*) 5 Mg Tablet, 5 MG PO BID for 30 Days, TAB Prov:CHELSEA NGUYEN MD 05/04/19 Reported Medications Atorvastatin Calcium* (Atorvastatin Calcium*) 20 Mg Tablet, 20 MG PO QHS, #30 TAB 04/12/19 Discontinued Reported Medications Aspirin* (Aspirin* EC) 81 Mg Tablet., 81 MG PO DAILY, TAB 04/12/19 Losartan Potassium* (Losartan Potassium*) 100 Mg Tablet, 100 MG PO DAILY, TAB 04/12/19 Amlodipine Besylate* (Amlodipine Besylate*) 10 Mg Tablet, 10 MG PO DAILY, #30 TAB 04/12/19 Follow-up Plan SNF PCP, cardiology in one week Dr. Devi in 2 weeks Primary Care Provider Not On Staff Doctor Pending Labs Laboratory Tests Test 05/04/19 05:21 White Blood Count 6.1 10^3/ul (4.8-10.8) Red Blood Count 3.22 10^6/ul (4.70-6.10) Hemoglobin 9.2 g/dl (14.0-18.0) Hematocrit 30.7 % (42.0-52.0) Mean Corpuscular Volume 95.3 fl (82.0-101.0) Mean Corpuscular Hemoglobin 28.6 pg (29.0-33.0) Mean Corpuscular Hemoglobin Concent 30.0 g/dl (32.0-37.0) Red Cell Distribution Width 17.2 % (11.5-14.5) Platelet Count 439 10^3/UL (140-415) Mean Platelet Volume 9.0 fl (7.4-10.4) Immature Granulocytes % 0.800 % (0.001-0.429) Neutrophils % 61.5 % (39.0-77.0) Lymphocytes % 23.6 % (15.0-51.0) Monocytes % 10.8 % (0.0-11.0) Eosinophils % 3.0 % (0.0-7.0) Basophils % 0.3 % (0.0-2.0) Nucleated Red Blood Cells % 0.0 /100WBC (0.0-0.0) Immature Granulocytes # 0.050 10^3/ul (0.0-0.031) Neutrophils # 3.8 10^3/ul (1.6-7.5) Lymphocytes # 1.4 10^3/ul (0.8-2.9) Monocytes # 0.7 10^3/ul (0.3-0.9) Eosinophils # 0.2 10^3/ul (0.0-0.5) Basophils # 0.0 10^3/ul (0.0-0.1) Nucleated Red Blood Cells # 0.0 10^3/ul (0.0-0.0) Sodium Level 141 mmol/L (135-144) Potassium Level 3.4 mmol/L (3.5-5.1) Chloride Level 100 mmol/L (97-110) Carbon Dioxide Level 36 mmol/L (21-31) Anion Gap 5 (5-13) Blood Urea Nitrogen 18 mg/dl (7-20) Creatinine 1.17 mg/dl (0.61-1.24) Est Glomerular Filtrat Rate mL/min > 60 mL/min (>60) Glucose Level 92 mg/dl (70-220) Calcium Level 8.3 mg/dl (8.4-10.2) Phosphorus Level 4.3 mg/dl (2.5-4.9) Magnesium Level 1.9 mg/dl (1.7-2.5) CHELSEA NGUYEN MD May 04, 2019 12:20
[2019-05-04] MEDS ORDERED: POTASSIUM CHLORIDE (SR) 20 MEQ TAB PO STA (12:59)
[2019-05-04] MEDS: ACETAMINOPHEN 325 MG TAB PO PRN (13:45)
[2019-05-04] MEDS: DIGOXIN 0.125 MG TAB PO SCH (13:45)
[2019-05-04] MEDS: BUDESONIDE (NEB) 0.5MG/2ML AMP HHN SCH ×2 (16:01→20:49)
[2019-05-04] MEDS: ALBUTEROL/IPRATROPIUM (NEB) 3 ML AMP HHN SCH ×3 (16:01→20:49)
[2019-05-04] MEDS: ATORVASTATIN 20 MG TAB PO SCH (21:23)
[2019-05-05 02:13] VITALS: PULSE 89
[2019-05-05 02:40] VITALS: BP 122/67; PULSE 55; RESP 18
[2019-05-05] MEDS ORDERED: ALTEPLASE (CATHFLO) 2 MG INJ CATHETER ONE (06:30)
[2019-05-05 07:45] VITALS: BP 102/65; PULSE 64; RESP 16
[2019-05-05] MEDS ORDERED: POTASSIUM CHLORIDE (SR) 20 MEQ TAB PO SCH (09:00)
[2019-05-05] MEDS ORDERED: AMIODARONE 200 MG TAB PO SCH (09:00)
[2019-05-05] MEDS: MESALAMINE (EC) 400 MG CAP PO SCH ×3 (09:40→20:46)
[2019-05-05] MEDS: BUMETANIDE 1 MG TAB PO SCH ×2 (09:40→20:45)
[2019-05-05] MEDS: APIXABAN 5 MG TABLET PO SCH ×2 (09:40→20:45)
[2019-05-05] MEDS: PANTOPRAZOLE (EC) 40 MG TAB PO SCH ×2 (09:40→20:45)
[2019-05-05] MEDS: METOPROLOL (XL) 100 MG TAB PO SCH ×2 (09:41→20:52)
[2019-05-05] MEDS: LOSARTAN 25 MG TAB PO SCH (09:41)
[2019-05-05 09:45] VITALS: BP 124/72; PULSE 88
[2019-05-05] MEDS: SILVER SULFADIAZINE 1% 25 GM CR TOP SCH (09:47)
[2019-05-05] MEDS: DIGOXIN 0.125 MG TAB PO SCH (13:00)
[2019-05-05] MEDS: ALBUTEROL/IPRATROPIUM (NEB) 3 ML AMP HHN SCH ×3 (14:00→20:30)
[2019-05-05 14:28] VITALS: BP 125/70; PULSE 76; RESP 16
[2019-05-05] MEDS: BUDESONIDE (NEB) 0.5MG/2ML AMP HHN SCH ×2 (14:29→20:20)
--- NOTE | 2019-05-05 14:41 | CONS ---
Assessment/Plan Assessment/Plan Assessment/Plan (Daily) 1. Oliguric Acute kidney injury on CKD 2/2 Hemodynamics from CHF and atrial fibrillation RVR , also contributing ATN from sepsis 2. acute hypoxic respiratory failure requiring BIPAP due to Bilateral PNA and CHF 3. sepsis due to Bilateral PNA 4. Acute CHF exacerbation with EF 20% on ECHO, most likely new onset since pt has been denying any H/o CHF 5. New onset afib with RVR- on cardizem gtt 6. H/o HTN 7. H/o Sleep apnea 8. H/o Possible CKD but pt has been denying it.. His Renal Us showed normal echogenicity of kidneys but kidneys are small in size, The right kidney measures 9.5 cm. The left kidney measures 9.2 cm. 9. Moderate Right sided pleural effusion s/p R thoracentesis on 04/28/19- 850cc, removed, 10. Hypokalemia Plan: -BUN/Cr improved to 18/1.17, K 3.4- KCl 20meQ PO daily - no labs today to review yet -s/p R thoracentesis on 04/28/19- 850cc, Conitnue Bumex to 1mg PO BID- . Monitor electrolytes and replace as needed Echo showed EF 20% wiht Moderate MR, moderate to severe TR, Enlarged RV and RVSP 52 Amiodarone 400mg PO TID and metoprolol 100mg PO BID for rate conrol, eliquis for anticoagulation SNF placement in Progress will follow up Consultation Date/Type/Reason Admit Date/Time Apr 12, 2019 at 12:21 Initial Consult Date 04/13/19 Type of Consult NEPHROLOGY Requesting Provider: MARVIN FOX MD Date/Time of Note DATE: 05/05/19 TIME: 14:41 Exam/Review of Systems Exam Vitals Vital Signs Date Temp Pulse Resp B/P (MAP) Pulse Ox O2 O2 Flow FiO2 Time Delivery Rate 05/05/19 98.2 76 16 125/70 100 14:28 (88) 05/05/19 Nasal 2.0 09:00 Cannula 05/05/19 35 02:13 Intake and Output 05/04/19 05/04/19 05/05/19 1515:00 23:00 07:00 IntakeIntake Total 600 ml 840 ml OutputOutput Total 750 ml BalanceBalance 600 ml 90 ml Exam Constitutional: alert awake communicative Respiratory: decreased BS+, no wheezing Cardiovascular: regular rate and rhythm, nl pulses Gastrointestinal: soft, non-tender Musculoskeletal: muscle weakness, swelling (1+ pitting edema ) Extremities: normal pulses Neurological: alert awake, communicative, non focal Results Result Diagram: 05/04/1952005/04/19520 Medications Medication Current Medications Atorvastatin Calcium (Lipitor) 20 mg QHS PO Last administered on 05/04/19 21:23; Admin Dose 20 MG; Start 04/12/19 at 21:00 Ondansetron HCl (Zofran Inj) 4 mg Q6H PRN IV NAUSEA AND/OR VOMITING Last administered on 04/15/19 16:27; Admin Dose 4 MG; Start 04/12/19 at 13:00 Acetaminophen (Tylenol Tab) 650 mg Q6H PRN PO PAIN LEVEL 1-3 OR FEVER Last administered on 05/04/19 13:45; Admin Dose 650 MG; Start 04/12/19 at 13:00 Docusate Sodium (Colace) 100 mg Q12H PRN PO CONSTIPATION; Start 04/12/19 at 13:00 Magnesium Hydroxide (Milk Of Mag) 30 ml DAILY PRN PO CONSTIPATION; Start 04/12/19 at 13:00 Morphine Sulfate (morphine) 2 mg Q4H PRN IV SEVERE PAIN LEVEL 7-10 Last administered on 04/23/19 23:14; Admin Dose 2 MG; Start 04/13/19 at 23:30 IV Flush (NS 10 ml) 10 ml Q8 PRN IV IV PROTOCOL; Start 04/14/19 at 15:00 Lorazepam (Ativan) 1 mg Q6H PRN IV anxiety Last administered on 04/22/19 23:35; Admin Dose 1 MG; Start 04/14/19 at 15:00 [facility] This patient urias... PRN PRN XX WOUND CARE; Start 04/14/19 at 21:00 Metoprolol Succinate (Toprol Xl) 100 mg BID PO Last administered on 05/05/19 09:41; Admin Dose 100 MG; Start 04/19/19 at 21:00 Albuterol/ Ipratropium (Duoneb) 3 ml Q6HWA RESP THERAPY HHN Last administered on 05/05/19 14:28; Admin Dose 3 ML; Start 04/20/19 at 20:00 Albuterol/ Ipratropium (Duoneb) 3 ml Q2H RESP THERAPY PRN HHN shortness of breath Last administered on 04/24/19 04:16; Admin Dose 3 ML; Start 04/20/19 at 15:00 Budesonide (Pulmicort (Neb)) 0.5 mg BID RESP THERAPY HHN Last administered on 05/05/19 14:29; Admin Dose 0.5 MG; Start 04/20/19 at 20:00 Silver Sulfadiazine (Thermazene 1% 25 Gm) 1 applic DAILY TOP Last administered on 05/05/19 09:47; Admin Dose 1 APPLIC; Start 04/22/19 at 12:00 Digoxin (Digoxin) 0.125 mg DAILY@13 PO Last administered on 05/04/19 13:45; Admin Dose 0.125 MG; Start 04/27/19 at 13:00 Bumetanide (Bumex) 1 mg BID PO Last administered on 05/05/19 09:40; Admin Dose 1 MG; Start 04/28/19 at 21:00 Pantoprazole (Protonix Tab) 40 mg BID PO Last administered on 05/05/19 09:40; Admin Dose 40 MG; Start 04/28/19 at 21:00 Guaifenesin/ Dextromethorphan (Robitussin Dm Liquid Cup) 5 ml Q4H PRN PO coughing Last administered on 04/29/19 04:15; Admin Dose 5 ML; Start 04/28/19 at 20:00 Mesalamine (Delzicol Dr) 800 mg TID PO Last administered on 05/05/19 09:40; Admin Dose 800 MG; Start 04/29/19 at 21:00 Miscellaneous Information Patients own medicat... BID@10,16 XX ; Start 05/01/19 at 10:00 Losartan Potassium (Cozaar) 12.5 mg DAILY PO Last administered on 05/05/19 09:41; Admin Dose 12.5 MG; Start 05/02/19 at 09:00 Apixaban (Eliquis) 5 mg BID PO Last administered on 05/05/19 09:40; Admin Dose 5 MG; Start 05/01/19 at 12:00 Acetaminophen/ Hydrocodone Bitart ([place] (5/325)) 1 tab Q4H PRN PO MODERATE PAIN LEVEL 4-6; Start 05/02/19 at 12:00 Amiodarone HCl (Cordarone) 200 mg DAILY PO Last administered on 05/05/19at 09:40; Admin Dose 200 MG; Start 05/05/19 at 09:00 Potassium Chloride (Klor-Con 20) 20 meq DAILY PO Last administered on 05/05/19at 09:40; Admin Dose 20 MEQ; Start 05/05/19 at 09:00 RYAN VICENTE MD May 05, 2019 14:41
--- NOTE | 2019-05-05 15:23 | DS ---
Date/Time of Note Date/Time of Note DATE: 05/05/19 TIME: 15:21 Discharge Summary Admission/Discharge Info Admit Date/Time Apr 12, 2019 at 12:21 Discharge Date/Time Discharge Diagnosis 1. CHF, systolic with LVEF , acute on chronic, stable, follow up with cardiology 2. Dilated cardiomyopathy, cardiology for work up of etiology 3. Acute respiratory failure, resolved 4. Atrial fibrillation, newly diagnosed, controlled rate on eliquis 5. GI bleeding with ulcerations in cecum, negative for malignancy, no active bleeding, follow up with GI 6. Bilateral community acquired pneumonia, treated 7. Acute renal failure, resolved 8. Sleep apnea, on BiPAP 9. HTN, controlled 10. Pleural effusion s/p thoracentesis 04/28 Patient Condition: Stable Hospital Course 63 yo M with PMH HTN, sleep apnea, and hyperlipidemia presented to ED with worsening shortness of breath. Patient was on BIPAP and only answering simple questions. History obtained from patient as well and ED physician. Patient states he has not been feeling well for the past week and has been experiencing worsening shortness of breath while ambulating. He also complains of paroxysmal nocturnal dyspnea. He has associated bilateral lower extremity swelling. Admits to palpitations but denies any chest pain, dizziness, nausea, vomiting, coughing, sputum production, abdominal pain or urinary issues. Patient denies any recent sick contact or recent travel. Denies any cardiac issues besides elevated blood pressure. Echocardiography revealed LVEF 20%, PASP 52 mmHg. ECG with atrial fibrillation. Patient is on diuretics with bumex, losartan and topril XL for CHF, digoxin, toprol XL, amiodarone and eliquis for atrial fibrillation. Shortness of breath improved, ventricular rate is under controlled. 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 Patient will need outpatient stress test to rule out ischemic cardiomyopathy. There were bilateral pulmonary infiltrates indicates pneumonia and he is fully treated with antibiotics. Patient had right sided thoracentesis with removal of 850 cc fluid on 04/28/2019. Fluid culture is negative. Patient had GI bleeding that he got colonoscopy on 04/27/2019, it revealed Ulceration nodularity in the cecum, 1 cm sessile polyp in the proximal rectum. Snared and retrieved. 8 mm sessile polyp in the rectum. Snared and retrieved. Mild diverticulosis.The biopsy from the ulceration nodularity cecal lesion reported as severe acute inflammation, negative for malignancy. GI Dr. Devi recommends Delzicol 800 mg 3 times daily for 3-month, repeat colonoscopy in 3- month. Patient had acute renal failure that resolved. Patient was discharged yesterday but awaiting for SNF placement. No event since then. Patient is seen and examined today. He is stable to be discharged to SNF today. Home Meds Active Scripts Potassium Chloride* (KCl*) 40 Meq/30 Ml Soln, 20 MEQ PO DAILY for 30 Days, MEQ Prov:CHELSEA NGUYEN MD 05/04/19 Amiodarone Hcl* (Amiodarone Hcl*) 200 Mg Tablet, 200 MG PO DAILY, #30 TAB Prov:CHELSEA NGUYEN MD 05/04/19 Pantoprazole* (Pantoprazole*) 40 Mg Tablet.dr, 40 MG PO BID for 30 Days Prov:CHELSEA NGUYEN MD 05/04/19 Mesalamine (Delzicol) 400 Mg Cap.drtab., 800 MG PO TID for 30 Days Prov:CHELSEA NGUYEN MD 05/04/19 Bumetanide* (Bumetanide*) 1 Mg Tablet, 1 MG PO BID for 30 Days, TAB Prov:CHELSEA NGUYEN MD 05/04/19 Metoprolol Succinate* (Toprol XL*) 100 Mg Tab.sr.24h, 100 MG PO BID for 30 Days Prov:CHELSEA NGUYEN MD 05/04/19 Losartan Potassium* (Cozaar*) 25 Mg Tablet, 12.5 MG PO DAILY for 30 Days, TAB Prov:CHELSEA NGUYEN MD 05/04/19 Digoxin* (Digitek*) 125 Mcg Tablet, 0.125 MG PO DAILY@13 for 30 Days, TAB Prov:CHELSEA NGUYEN MD 05/04/19 Apixaban* (Eliquis*) 5 Mg Tablet, 5 MG PO BID for 30 Days, TAB Prov:CHELSEA NGUYEN MD 05/04/19 Reported Medications Atorvastatin Calcium* (Atorvastatin Calcium*) 20 Mg Tablet, 20 MG PO QHS, #30 TAB 04/12/19 Discontinued Reported Medications Aspirin* (Aspirin* EC) 81 Mg Tablet.dr, 81 MG PO DAILY, TAB 04/12/19 Losartan Potassium* (Losartan Potassium*) 100 Mg Tablet, 100 MG PO DAILY, TAB 04/12/19 Amlodipine Besylate* (Amlodipine Besylate*) 10 Mg Tablet, 10 MG PO DAILY, #30 TAB 04/12/19 Follow-up Plan SNF PCP, cardiology in one week Dr. Devi in 2 weeks Primary Care Provider Not On Staff Doctor CHELSEA NGUYEN MD May 05, 2019 15:23
[2019-05-05 20:00] VITALS: BP 124/75; PULSE 87; RESP 18
[2019-05-05] MEDS: ATORVASTATIN 20 MG TAB PO SCH (20:45)
== END 2019-05-05 21:36 | DRG 871 ==
LOC: E/R 10:38 → ICU 12:21 → TEL 04-17 10:39 → PP2 04-29 11:43
PROVIDERS: ADMIT Internal Medicine; ATTEND Internal Medicine
PROC: 5A09457 Assistance with Respiratory Ventilation, 24-96 Consecutive Hours, Continuous Positive Airway Pressure (ICD-10-PCS; 2019-04-12)
PROC: 02HV33Z Insertion of Infusion Device into Superior Vena Cava, Percutaneous Approach (ICD-10-PCS; 2019-04-14)
PROC: 0DBH8ZX Excision of Cecum, Via Natural or Artificial Opening Endoscopic, Diagnostic (ICD-10-PCS; principal; 2019-04-27 17:30)
PROC: 0DBP8ZZ Excision of Rectum, Via Natural or Artificial Opening Endoscopic (ICD-10-PCS; 2019-04-27 17:30)
PROC: 0W993ZX Drainage of Right Pleural Cavity, Percutaneous Approach, Diagnostic (ICD-10-PCS; 2019-04-28)
DX: A41.9 Sepsis, unspecified organism (principal); J18.9 Pneumonia, unspecified organism; N17.0 Acute kidney failure with tubular necrosis; J96.01 Acute respiratory failure with hypoxia; I50.21 Acute systolic (congestive) heart failure; I21.4 Non-ST elevation (NSTEMI) myocardial infarction; R57.8 Other shock; K72.00 Acute and subacute hepatic failure without coma; I24.8 Other forms of acute ischemic heart disease; I42.9 Cardiomyopathy, unspecified; I13.0 Hypertensive heart and chronic kidney disease with heart failure and stage 1 through stage 4 chronic kidney disease, or unspecified chronic kidney disease; K63.3 Ulcer of intestine; K92.1 Melena; K92.2 Gastrointestinal hemorrhage, unspecified; J90 Pleural effusion, not elsewhere classified; K62.1 Rectal polyp; K64.8 Other hemorrhoids; K57.90 Diverticulosis of intestine, part unspecified, without perforation or abscess without bleeding; I48.91 Unspecified atrial fibrillation; I07.1 Rheumatic tricuspid insufficiency; I25.5 Ischemic cardiomyopathy; E11.22 Type 2 diabetes mellitus with diabetic chronic kidney disease; E78.00 Pure hypercholesterolemia, unspecified; E87.6 Hypokalemia; D69.6 Thrombocytopenia, unspecified; G47.30 Sleep apnea, unspecified; R65.20 Severe sepsis without septic shock; R06.89 Other abnormalities of breathing; R74.0 Nonspecific elevation of levels of transaminase and lactic acid dehydrogenase [LDH]; N18.9 Chronic kidney disease, unspecified; D64.89 Other specified anemias
CPT/HCPCS: 36415; 36430; 36569; 36600; 71045; 74177; 76705; 76775; 76937; 76942; 78582; 80048; 80053; 80061; 80069; 80162; 81001; 81003; 82378; 82550; 82553; 82570; 82728; 82803; 82945; 82962; 83036; 83540; 83605; 83615; 83735; 83880; 84100; 84145; 84155; 84157; 84300; 84443; 84484; 84560; 85014; 85018; 85025; 85378; 85610; 85730; 86704; 86709; 86803; 86850; 86900; 86901; 86920; 87070; 87081; 87086; 87102; 87116; 87340; 88305; 89051; 89190; 93005; 93306; 93970; 94640; 94644; 94660; 94664; 96374; 96375; 97110; 97116; 97162; 97165; 97530; 97535; A9540; C9113; J0282; J0692; J1650; J1815; J1885; J1940; J2001; J2060; J2270; J2405; J2916; J2930; J2997; J3370; J3475; J3480; J7030; J7040; J7060; J7070; P9016; P9047; Q9967